=== PATIENT | female | born 1975 | race Caucasian/White ===

== ENCOUNTER 2022-12-12 07:01 | Inpatient (IN) | payer OTHER, SELFPAY ==
[2022-12-12 07:13] VITALS: BP 170/88; PULSE 67; RESP 20; TEMP 36.5; O2SAT 100; BMI 24.7
--- NOTE | 2022-12-12 08:08 | ED.PSYCH ---
HPI - Psych General Chief Complaint: Psychiatric Symptoms Stated Complaint: Crisis Time Seen by Provider: 12/12/22 08:00 Source: patient and RN notes reviewed Mode of arrival: ambulatory History of Present Illness HPI Narrative: 47-year-old female with past medical history of GERD, hypothyroid, anxiety, polysubstance abuse on methadone, presenting to the ED complaining of increased depression and anxiety over the past month, worsening over the past 2 days. Reports recently prescribed new medications by PCP which are not eating symptoms. Reports no desire to get out of bed or shower/perform ADLs. Reports recent cocaine use. Denies other illicit substances or EtOH. Denies SI, HI, hallucinations. Denies abdominal pain, CP/SOB MD complaint: feels depressed, anxiety and substance abuse Onset (ago): day(s) Related Data Home Medications Medication Instructions Recorded Confirmed ibuprofen 200 mg tablet 400 mg PO Q8H PRN Pain 12/12/22 12/12/22 lorazepam 0.5 mg tablet 0.5 mg PO DAILY PRN anxiety 12/12/22 12/12/22 methadone 10 mg/mL oral concentrate 128 mg PO DAILY 12/12/22 sumatriptan succinate 50 mg tablet 50 mg PO DAILY PRN migraine 12/12/22 12/12/22 (Imitrex) headache Previous Rx's Medication Instructions Recorded zolpidem 10 mg tablet 10 mg PO BEDTIME PRN insomnia 30 11/18/22 days #14 tabs clonazepam 1 mg tablet 1 mg PO BEDTIME PRN anxiety #14 11/22/22 tabs fluoxetine 10 mg tablet 10 mg PO DAILY #30 tabs 12/08/22 Allergies Allergy/AdvReac Type Severity Reaction Status Date / Time diphenhydramine Allergy Severe RASH Verified 11/08/22 14:02 [From BENADRYL] trazodone [TRAZODONE] Allergy Severe DYSTONIC Verified 11/08/22 14:02 risperidone [Risperdal] Allergy Unknown anaphylaxis Verified 11/08/22 14:02 antipsychotic AdvReac Intermediate dystonia Uncoded 11/08/22 14:43 cold medicine AdvReac Intermediate dystonia Uncoded 11/08/22 14:43 Review of Systems Review of Systems: Constitutional: No Fever, No Chills, No Fatigue, No Malaise ENT/Mouth: No Ear Pain, No sore throat, No Rhinorrhea, No Swallowing Difficulty Eyes: No Eye Pain, No Swelling, No Foreign Body, No Discharge, No Vision Changes Cardiovascular: No Chest Pain, No SOB Respiratory: No Cough, No Sputum, No Dyspnea Gastrointestinal: No Nausea, No Vomiting, No Diarrhea, No Constipation, No Abdominal pain Genitourinary: No Dysuria, No Urinary Frequency, No Hematuria Musculoskeletal: No joint pain, No Myalgias, No Joint Swelling Skin: No Skin Lesions, No rash Neuro: No Weakness, +Headache Psych: + Anxiety/Panic, + Depression, No SI/HI/AH/VH, No Social Issues Yes all other systems are reviewed and are negative Constitutional: Constitutional: Reports as per [facility] Past Medical History Attestation statement: The following information was validated with the patient. Medical History GERD (gastroesophageal reflux disease) Hypothyroid Insomnia Migraine Panic attacks Peptic ulcer disease Polysubstance abuse Surgical History History of section Family History Family History Father COPD (chronic obstructive pulmonary disease) Lung cancer Mother No problems noted. Maternal Grandmother Esophageal cancer Maternal Grandfather Pancreatic cancer Paternal Grandmother Esophageal cancer Stomach cancer Maternal Aunt Breast cancer Social History Social History Housing: House Alcohol intake: never Patient Tobacco Use Status: Never used Tobacco Tobacco use type: Cigarette Smoked in Last 30 Days: No e-Cigarette/Vaping Use: Never Used Second Hand Smoke Exposure: No Use of substances other than those prescribed or required for medical reasons: Yes Substance Use Type: Crack/Cocaine Substance Use Frequency: Occasionally Substance Use Frequency Other:: coke 4 days ago Last Used Substance: Days (ago) Any prior treatment program specific to substance use: No Advance Directives: No Advance Directives Information Provided: No Current occupational status: employed Cognitive needs: No Hearing needs: No Vision needs: No Physical Exam Vital Signs: Vital Signs: Last Vital Signs Temp 97.9 F 12/12/22 13:44 Pulse 54 12/12/22 13:44 Resp 16 12/12/22 13:44 BP 151/80 H 12/12/22 13:44 Pulse Ox 100 12/12/22 13:44 O2 Del Method Room Air 12/12/22 13:44 BMI result Body Mass Index 24.7 Const: General: cooperative, healthy appearing, no acute distress and anxious Orientation/consciousness: patient oriented x3 Limitations: no limitations HEENT: Head: Yes normal to inspection and Yes atraumatic Ears: hearing grossly normal bilaterally General nose exam: Normal external nose present Face and sinus: Yes normal facial exam Throat: Yes posterior oropharynx normal Eyes: General: appearance normal, both eyes and all related structures Pupils: Equal, round and reactive pupils present EOM: EOMs intact bilaterally Neck: Neck: Yes normal visual inspection and Yes no meningeal signs Resp: Effort & Inspection: normal respiratory effort and no respiratory distress Auscultation: clear to auscultation bilaterally Cardio: Rate: regular rate Heart sounds: S1 normal heart sound present and S2 normal heart sound present GI: Inspection: Yes normal to inspection Palpation (GI): Soft to palpation and nontender Skin: Rashes: no rashes Wounds: no wounds Neuro: General: patient oriented x3, tone normal and no meningeal signs Cranial nerves: Yes Equal, round and reactive pupils present Gait exam (Neuro): Normal gait present Extrem: General: Yes normal to inspection Psych: Thought content: suicidality, no homicidality and Depressive thoughts present Course Course Course Narrative: -1300--no leukocytosis. Drop in patient's H&H 8.8/30.0 >> patient reports history of anemia, denies dark/black or bloody stools. Will obtain occult stool -labs otherwise reassuring. Tox screen positive for cocaine -1500--occult stool negative. Patient medically cleared for CARE team evaluation. Physician observation initiated -1800 ED care transferred to [facility]ITAL[facility] Yun pending CARE team eval Medications Administered Discontinued Medications Generic Name Dose Route Start Last Admin Trade Name Freq PRN Reason Stop Dose Admin Ibuprofen 400 mg 12/12/22 08:25 12/12/22 08:45 Ibuprofen 400 Mg Tablet PO 12/12/22 08:26 400 mg ONCE ONE Administration Lorazepam 1 mg 12/12/22 08:25 12/12/22 08:45 Lorazepam 1 Mg Tablet PO 12/12/22 08:26 1 mg ONCE ONE Administration Medical Decision Making Medical Decision Making MDM Narrative: 47-year-old female with past medical history of GERD, hypothyroid, anxiety, polysubstance abuse on methadone, presenting to the ED complaining of increased depression and anxiety over the past month, worsening over the past 2 days. On exam vital signs stable, NAD, appears anxious/sad and depressed, denies SI/HI. Concern for increasing depression. Low suspicion for organic causes Plan: Labs, UA, drug screen, CARE team consult Please refer to course for remaining clinical decision making, interpretation of labs/imaging results, and discussions with consultants and/or family members. Differential Diagnosis Differential Diagnoses: The differential diagnosis associated with the presentation includes As above Admission/Observation Consideration of admission/observation: Escalation of care including admission/observation considered Lab Data MDM Lab Attestation statement: I reviewed the patient's lab results. 12/12/22 08:34 12/12/22 08:34 Labs: Lab Results 12/12/22 12/12/22 12/12/22 Range/Units 08:34 08:34 08:34 WBC 5.9 (4.8-10.8) X10*3/uL RBC 3.98 L (4.20-5.50) X10*6/uL Hgb 8.8 L (12.0-16.0) g/dl Hct 30.0 L (37.0-47.0) % MCV 75.4 L (80.0-98.0) fL MCH 22.1 L (27.0-33.0) pg MCHC 29.3 L (31.0-35.0) g/dl RDW 17.5 H (11.0-16.0) % Plt Count 397 (160-400) X10*3/uL MPV 10.3 (9.4-12.3) fL Immature Gran % (Auto) 1.2 H (0.0-0.4) % Neut % (Auto) 61.0 (45-73) % Lymph % (Auto) 24.7 (20-40) % Sullivan % (Auto) 7.3 (2-11) % Eos % (Auto) 4.8 H (0-4) % Baso % (Auto) 1.0 (0-2) % Lymph # (Auto) 1.5 (1.2-4.9) X10*3/uL Sullivan # (Auto) 0.4 (0.1-1.2) X10*3/uL Eos # (Auto) 0.3 (0.0-0.4) X10*3/uL Baso # (Auto) 0.1 (0.0-0.2) X10*3/uL Abs Immat Gran (auto) 0.07 H (0.00-0.03) X10*3/uL Absolute Neuts (auto) 3.6 (2.0-8.3) x10*3/uL Absolute Nucleated RBC 0.000 (0.0-0.012) X10*3/uL Nucleated RBC % (auto) 0.0 (0.0-0.2) /100WBC Sodium 141 (135-145) mmol/L Potassium 4.5 (3.3-5.1) mmol/L Chloride 108 (96-108) mmol/L Carbon Dioxide 26 (22-29) mmol/L Anion Gap 12 (12-20) BUN 16 (9-16) mg/dL Creatinine 0.70 (0.5-1.4) mg/dL Estim Creat Clear Calc 80.6 Estimated GFR > 60 Random Glucose 100 (60-115) mg/dL Calcium 8.5 (8.4-10.2) mg/dL Total Bilirubin < 0.2 (0.0-1.0) mg/dL Direct Bilirubin < 0.2 (0.0-0.5) mg/dL AST 11 (5-31) U/L ALT 6 (0-31) U/L Alkaline Phosphatase 69 (39-117) U/L Total Protein 7.3 (6.5-8.0) g/dL Albumin 3.7 (3.5-5.0) g/dL Stool Occult Blood (NEGATIVE) Urine Opiates Screen Not Detected (Not Detect) Urine Fentanyl Screen Not Detected (Not Detect) Ur Barbiturates Screen Not Detected (Not Detect) Ur Phencyclidine Scrn Not Detected (Not Detect) Ur Amphetamines Screen Not Detected (Not Detect) U Benzodiazepines Scrn Not Detected (Not Detect) Urine Cocaine Screen POSITIVE H (Not Detect) U Marijuana (THC) Screen Not Detected (Not Detect) Ethyl Alcohol < 10 mg/dL COVID-19 (STEVEN) (Negative) COVID-19 Clin Com 12/12/22 12/12/22 Range/Units 08:34 13:47 WBC (4.8-10.8) X10*3/uL RBC (4.20-5.50) X10*6/uL Hgb (12.0-16.0) g/dl Hct (37.0-47.0) % MCV (80.0-98.0) fL MCH (27.0-33.0) pg MCHC (31.0-35.0) g/dl RDW (11.0-16.0) % Plt Count (160-400) X10*3/uL MPV (9.4-12.3) fL Immature Gran % (Auto) (0.0-0.4) % Neut % (Auto) (45-73) % Lymph % (Auto) (20-40) % Sullivan % (Auto) (2-11) % Eos % (Auto) (0-4) % Baso % (Auto) (0-2) % Lymph # (Auto) (1.2-4.9) X10*3/uL Sullivan # (Auto) (0.1-1.2) X10*3/uL Eos # (Auto) (0.0-0.4) X10*3/uL Baso # (Auto) (0.0-0.2) X10*3/uL Abs Immat Gran (auto) (0.00-0.03) X10*3/uL Absolute Neuts (auto) (2.0-8.3) x10*3/uL Absolute Nucleated RBC (0.0-0.012) X10*3/uL Nucleated RBC % (auto) (0.0-0.2) /100WBC Sodium (135-145) mmol/L Potassium (3.3-5.1) mmol/L Chloride (96-108) mmol/L Carbon Dioxide (22-29) mmol/L Anion Gap (12-20) BUN (9-16) mg/dL Creatinine (0.5-1.4) mg/dL Estim Creat Clear Calc Estimated GFR Random Glucose (60-115) mg/dL Calcium (8.4-10.2) mg/dL Total Bilirubin (0.0-1.0) mg/dL Direct Bilirubin (0.0-0.5) mg/dL AST (5-31) U/L ALT (0-31) U/L Alkaline Phosphatase (39-117) U/L Total Protein (6.5-8.0) g/dL Albumin (3.5-5.0) g/dL Stool Occult Blood NEGATIVE (NEGATIVE) Urine Opiates Screen (Not Detect) Urine Fentanyl Screen (Not Detect) Ur Barbiturates Screen (Not Detect) Ur Phencyclidine Scrn (Not Detect) Ur Amphetamines Screen (Not Detect) U Benzodiazepines Scrn (Not Detect) Urine Cocaine Screen (Not Detect) U Marijuana (THC) Screen (Not Detect) Ethyl Alcohol mg/dL COVID-19 (STEVEN) Negative (Negative) COVID-19 Clin Com See Note Radiology Impression Discussion of test interpretation with radiology: I have reviewed the radiologist's reading. External Record Review External record reviewed: Inpatient record, Office record, Outpatient record, Prior outpatient labs, Prior outpatient radiology, Primary care record and Outside ED record Discharge Plan Discharge Clinical Impression: Depressed, Acute anxiety Prescriptions: No Action zolpidem 10 mg tablet 10 mg PO BEDTIME PRN (Reason: insomnia) 30 Days Qty: 14 0RF clonazepam 1 mg tablet 1 mg PO BEDTIME PRN (Reason: anxiety) Qty: 14 1RF Rx Instructions: administer 30 minutes before bedtime fluoxetine 10 mg tablet 10 mg PO DAILY Qty: 30 3RF lorazepam 0.5 mg tablet 0.5 mg PO DAILY PRN (Reason: anxiety) ibuprofen 200 mg Tablet 400 mg PO Q8H PRN (Reason: Pain) methadone 10 mg/mL Concentrate 128 mg PO DAILY sumatriptan succinate [Imitrex] 50 mg tablet 50 mg PO DAILY PRN (Reason: migraine headache) Interventions: Edgar-Suicide Risk Severity Scale Last Done: 12/12/22 10:24
[2022-12-12 08:39] LABS: MANUAL DIFF FLAG NO
[2022-12-12 08:41] LABS: Basophils Absolute Auto 0.1 X10*3/uL (0.0-0.2); Eosinophils Absolute Auto 0.3 X10*3/uL (0.0-0.4); Eosinophils Percent Auto 4.8 % (0-4); Hemoglobin 8.8 g/dl (12.0-16.0); Imm Gran Abs Auto 0.07 X10*3/uL (0.00-0.03); Imm Gran Pct Auto 1.2 % (0.0-0.4); Lymphocytes Absolute Auto 1.5 X10*3/uL (1.2-4.9); Lymphocytes Percent Auto 24.7 % (20-40); Mean Corpuscular HGB Conc 29.3 g/dl (31.0-35.0); Mean Corpuscular Hemoglobin 22.1 pg (27.0-33.0); Mean Corpuscular Volume 75.4 fL (80.0-98.0); Mean Platelet Volume 10.3 fL (9.4-12.3); Monocytes Absolute Auto 0.4 X10*3/uL (0.1-1.2); Monocytes Percent Auto 7.3 % (2-11); Neutrophils Absolute Auto 3.6 x10*3/uL (2.0-8.3); Platelet Count 397 X10*3/uL (160-400); Red Blood Count 3.98 X10*6/uL (4.20-5.50); Red Cell Distribution Width 17.5 % (11.0-16.0); White Blood Count 5.9 X10*3/uL (4.8-10.8)
[2022-12-12] MEDS: Ibuprofen 400 MG TABLET PO ×2 (08:45→16:25)
[2022-12-12] MEDS: LORazepam 1 MG TABLET PO ×2 (08:45→16:25)
[2022-12-12 08:50] LABS: Amphetamine Screen Urine Not Detected (Not Detect); Barbiturates, Urine Not Detected (Not Detect); Benzodiazepines Screen Urine Not Detected (Not Detect); Cannabinoid Screen Urine Not Detected (Not Detect); Cocaine Screen Urine POSITIVE (Not Detect); Fentanyl, urine Not Detected (Not Detect); Opiate Screen Urine Not Detected (Not Detect); Phencyclidine Screen Urine Not Detected (Not Detect)
[2022-12-12 08:54] LABS: COVID-19 Test Negative (Negative); IDNOW Serial# BCCEAD1C
[2022-12-12 09:18] LABS: Alanine Aminotransferase 6 U/L (0-31); Albumin Level 3.7 g/dL (3.5-5.0); Alkaline Phosphatase 69 U/L (39-117); Anion Gap 12 (12-20); Aspartate Amino Transferase 11 U/L (5-31); Bilirubin Direct < 0.2 mg/dL (0.0-0.5); Bilirubin Total < 0.2 mg/dL (0.0-1.0); Blood Urea Nitrogen 16 mg/dL (9-16); Calcium 8.5 mg/dL (8.4-10.2); Carbon Dioxide 26 mmol/L (22-29); Chloride 108 mmol/L (96-108); Creatinine Clr Calc Pharmacy 80.6; Estimated Glomerular Filt Rate > 60; Ethanol < 10 mg/dL; Glucose Random 100 mg/dL (60-115); Potassium 4.5 mmol/L (3.3-5.1); Sodium 141 mmol/L (135-145); Total Protein 7.3 g/dL (6.5-8.0)
--- NOTE | 2022-12-12 09:34 | PHA.MEDREC ---
Pharmacy Consult ? Medication Reconciliation Pharmacy has completed the medication reconciliation. Spoke to patient to confirm meds. Patient had Rx bottle for methadone 128mg daily. Spoke to [facility] ED and let nurse know to follow up for methadone verification tomorrow.
--- NOTE | 2022-12-12 13:11 | PC.NURSE ---
pt eating lunch, nad, skin warm pale and dry, reports diagnosis of anemia, denies rectal bleeding or dark stools, informed of need for stool sample or rectal exam, does not have to have a bm now but not opposed to either
[2022-12-12 13:44] VITALS: BP 151/80; PULSE 54; RESP 16; TEMP 36.6; O2SAT 100
--- NOTE | 2022-12-12 14:35 | PC.NURSE ---
pt to ed 3 briefly for rectal exam and now back, resting w eyes closed in the back room
[2022-12-12 14:42] LABS: OBS Int Ctl Valid YES; OBS1 NEGATIVE (NEGATIVE)
--- NOTE | 2022-12-12 15:46 | PC.NURSE ---
report received from AMBER Dixon Patient resting on bed, reporting decreased pain, no other complaints at this time
--- NOTE | 2022-12-12 16:34 | PC.NURSE ---
patient approached this RN requesting medications for anxiety and pain. MD aware, ativan and ibuprofen administered per MAR
--- NOTE | 2022-12-12 19:04 | PC.NURSE ---
pt eating dinner at this time, no apparent distress, respirations even and unlabored, skin pwd, reports no other complaints
[2022-12-12 21:54] VITALS: BP 129/85; PULSE 67; RESP 18; TEMP 36.3; O2SAT 96
[2022-12-12] MEDS: Zolpidem Tartrate 5 MG TABLET 10 MG PO (22:01)
--- NOTE | 2022-12-12 23:04 | PC.NURSE ---
pt sleeping at this time, respirations even and unlabored, skin pwd, no apparent distress
--- NOTE | 2022-12-13 01:05 | PC.NURSE ---
pt sleeping at this time, resprirations even and unlabored, skin pwd, no apparent distress at this time. Continue plan of care for CARE team assessment in the AM
[2022-12-13 06:15] VITALS: BP 109/74; PULSE 69; TEMP 36.3; O2SAT 100
[2022-12-13] MEDS: LORazepam 1 MG TABLET PO ×2 (09:11→20:07)
--- NOTE | 2022-12-13 10:12 | HE.PHANOTE ---
Re methadone verification: Last dose given 12/12/22 128 mg (take home dose from [facility]) Confirmed by Rosa RN who spoke to [facility] at facility
--- NOTE | 2022-12-13 10:26 | ECG_ITS ---
Test Reason : cocaine use Blood Pressure : / mmHG Vent. Rate : 055 BPM Atrial Rate : 055 BPM P-R Int : 110 ms QRS Dur : 074 ms QT Int : 450 ms P-R-T Axes : 030 -11 -11 degrees QTc Int : 430 ms Sinus bradycardia with short ID with Baseline wander Nonspecific ST and T wave abnormality Abnormal ECG When compared with ECG of 22-SEP-2004 21:20, T wave inversion now evident in Inferior leads Nonspecific T wave abnormality now evident in Anterolateral leads Referred By: Bhupinder Napoles Electronically Signed By:SHAWN ESCAMILLA MD
[2022-12-13] MEDS: methADONE HCl 20 MG/2 ML ORAL.CONC 128 MG PO (11:33)
[2022-12-13] MEDS: Ibuprofen 600 MG TABLET PO (18:09)
[2022-12-13 21:45] VITALS: BP 154/89; PULSE 67; RESP 14; TEMP 36.8; O2SAT 99
[2022-12-13] MEDS: Zolpidem Tartrate 5 MG TABLET 10 MG PO (22:17)
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
[2022-12-14 06:00] VITALS: BP 156/94; PULSE 80; RESP 16; TEMP 37.1; O2SAT 100
[2022-12-14] MEDS: FLUoxetine HCl 10 MG CAPSULE PO ×2 (08:16→16:11)
[2022-12-14] MEDS: methADONE HCl 20 MG/2 ML ORAL.CONC 128 MG PO (08:16)
[2022-12-14 09:04] LABS: Basophils Absolute Auto 0.1 X10*3/uL (0.0-0.2); Basophils Percent Auto 1.1 % (0-2); Eosinophils Absolute Auto 0.2 X10*3/uL (0.0-0.4); Eosinophils Percent Auto 2.6 % (0-4); Hematocrit 32.9 % (37.0-47.0); Hemoglobin 9.5 g/dl (12.0-16.0); Imm Gran Abs Auto 0.08 X10*3/uL (0.00-0.03); Imm Gran Pct Auto 1.1 % (0.0-0.4); Lymphocytes Absolute Auto 1.7 X10*3/uL (1.2-4.9); MANUAL DIFF FLAG NO; Mean Corpuscular HGB Conc 28.9 g/dl (31.0-35.0); Mean Corpuscular Hemoglobin 21.6 pg (27.0-33.0); Mean Corpuscular Volume 74.9 fL (80.0-98.0); Mean Platelet Volume 10.2 fL (9.4-12.3); Monocytes Absolute Auto 0.6 X10*3/uL (0.1-1.2); Monocytes Percent Auto 7.5 % (2-11); Neutrophils Absolute Auto 4.7 x10*3/uL (2.0-8.3); Neutrophils Percent Auto 64.7 % (45-73); Platelet Count 435 X10*3/uL (160-400); Red Blood Count 4.39 X10*6/uL (4.20-5.50); Red Cell Distribution Width 17.5 % (11.0-16.0); White Blood Count 7.3 X10*3/uL (4.8-10.8)
[2022-12-14] MEDS: Acetaminophen 325 MG TABLET 650 MG PO (09:50)
[2022-12-14 09:56] LABS: Alanine Aminotransferase 8 U/L (0-31); Alkaline Phosphatase 70 U/L (39-117); Anion Gap 11 (12-20); Aspartate Amino Transferase 15 U/L (5-31); Bilirubin Total 0.2 mg/dL (0.0-1.0); Blood Urea Nitrogen 19 mg/dL (9-16); Calcium 9.2 mg/dL (8.4-10.2); Carbon Dioxide 27 mmol/L (22-29); Chloride 106 mmol/L (96-108); Cholesterol 195 mg/dL; Creatinine Clr Calc Pharmacy 69.7; Estimated Glomerular Filt Rate > 60; Glucose Fasting 106 mg/dL (60-99); HDL Cholesterol 44 mg/dL; LDL Cholesterol Calculated 117 mg/dl; Potassium 4.9 mmol/L (3.3-5.1); Sodium 139 mmol/L (135-145); Total Protein 7.9 g/dL (6.5-8.0); Triglycerides 171 mg/dL
[2022-12-14 10:14] LABS: Folate 12.1 ng/mL (> or = 4.0); Vitamin B12 326 pg/mL (200-900)
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
[2022-12-14] MEDS: Ibuprofen 800 MG TABLET PO (10:23)
[2022-12-14 16:15] VITALS: BP 126/79; PULSE 65; TEMP 36.6
[2022-12-14] MEDS: cloNIDine HCL 0.1 MG TABLET 0.05 MG PO (16:16)
[2022-12-14] MEDS: clonazePAM 0.5 MG TABLET PO (16:17)
[2022-12-14 18:03] LABS: Iron 24 mcg/dL (30-160); Percent Iron Saturation 7 % (15-50); Total Iron Binding Capacity 345 mcg/dL (228-428); Unsaturated Iron Binding 321 ug/dL
[2022-12-14] MEDS: Zolpidem Tartrate 5 MG TABLET 10 MG PO (20:09)
[2022-12-15] MEDS: FLUoxetine HCl 20 MG CAPSULE PO (08:39)
[2022-12-15] MEDS: methADONE HCl 20 MG/2 ML ORAL.CONC 125 MG PO (08:40)
--- NOTE | 2022-12-15 08:43 | HO.PSYCHPN ---
Subjective Subjective Date of Service: 12/15/22 Reason For Visit: depression, si Interim History: Met with patient; discussed with team; engaged in CBT Therapy session Patient will out about, social in the milieu, attending groups. patient reports she is doing a little better; no SI; discussed treatment and patient agrees that much of her recovery will be based on outpatient therapy; since medications have been increased, she wonders if she might step down to a partial day program soon and continue treatment in that setting. Patient discussed social anxiety issues, worried that people are thing in about her when she knows they are not; Engaged in CBT exercise and patient able to identify problematic areas with automatic thoughts and how they trigger feelings. Patient agrees to continue current medication regimen. Also agrees to start iron supplementation for microcytic anemia. Patient Mental Status Exam Mental Status Exam Narrative: Pt is alert and oriented; behavior is cooperative, friendly and calm; patient is not in distress; dressed in casual attire, well groomed; mood is described as little better and affect congruent; eye contact appropriate; Speech is normal rate, volume and prosody and not pressured; no psychomotor retardation; thought process is organized and goal directed; Thought content is on why she is feeling depressed; tx; otherwise pertinent to relevant topics and without any delusional content, paranoid ideations or grandiosity; currently denies any SI; no HI. There is no evidence of perceptual disturbance. Patients insight and judgment improved and fair. Diagnostics Vital Signs (24Hr): Vital Signs - 24 hr 12/14/22 16:15 Temperature 97.9 F Pulse Rate 65 Blood Pressure 126/79 BMI result Body Mass Index 24.7 Labs 12/14/22 08:40 12/14/22 08:40 Labs: Laboratory Results - last 48 hr 12/14/22 12/14/22 12/14/22 08:40 08:40 17:39 WBC 7.3 RBC 4.39 Hgb 9.5 L Hct 32.9 L MCV 74.9 L MCH 21.6 L MCHC 28.9 L RDW 17.5 H Plt Count 435 H MPV 10.2 Immature Gran % (Auto) 1.1 H Neut % (Auto) 64.7 Lymph % (Auto) 23.0 [place] % (Auto) 7.5 Eos % (Auto) 2.6 Baso % (Auto) 1.1 Lymph # (Auto) 1.7 [place] # (Auto) 0.6 Eos # (Auto) 0.2 Baso # (Auto) 0.1 Abs Immat Gran (auto) 0.08 H Absolute Neuts (auto) 4.7 Absolute Nucleated RBC 0.000 Nucleated RBC % (auto) 0.0 Sodium 139 Potassium 4.9 Chloride 106 Carbon Dioxide 27 Anion Gap 11 L BUN 19 H Creatinine 0.81 Estim Creat Clear Calc 69.7 Estimated GFR > 60 Fasting Glucose 106 H Calcium 9.2 D Iron 24 L TIBC 345 % Saturation 7 L Unsat Iron Binding 321 Total Bilirubin 0.2 AST 15 ALT 8 Alkaline Phosphatase 70 Total Protein 7.9 Albumin 4.0 Triglycerides 171 Cholesterol 195 LDL Cholesterol, Calc 117 HDL Cholesterol 44 Vitamin B12 326 Folate 12.1 TSH 1.10 Medications Medications Current Medications Acetaminophen (Acetaminophen 325 Mg Tablet) 650 mg PO Q6H PRN PRN Reason: Headache/Pain Mild Scale (1-3) Last Admin: 12/14/22 09:50 Dose: 650 mg Al Hydroxide/Mg Hydroxide (Magnesium Hydrox/Alum Hydrox 30 Ml Oral.Susp) 30 ml PO Q6H PRN PRN Reason: Heartburn/Nausea Clonazepam (Clonazepam 0.5 Mg Tablet) 0.5 mg PO BID PRN PRN Reason: anxiety Last Admin: 12/14/22 16:17 Dose: 0.5 mg Clonidine HCl (Clonidine Hcl 0.1 Mg Tablet) 0.05 mg PO TID PRN; Protocol PRN Reason: anxiety Last Admin: 12/14/22 16:16 Dose: 0.05 mg Fluoxetine HCl (Fluoxetine Hcl 20 Mg Capsule) 20 mg PO DAILY [facility] Last Admin: 12/15/22 08:39 Dose: 20 mg Gabapentin (Gabapentin 100 Mg Capsule) 100 mg PO TID PRN PRN Reason: anxiety Ibuprofen (Ibuprofen 800 Mg Tablet) 800 mg PO Q8H PRN PRN Reason: Pain, Mild (Pain Scale 1-3) Last Admin: 12/14/22 10:23 Dose: 800 mg Magnesium Hydroxide (Milk Of Magnesia 30 Ml Oral.Susp) 30 ml PO DAILY PRN PRN Reason: Constipation Methadone HCl (Methadone Hcl 20 Mg/2 Ml Oral.Conc) 125 mg PO DAILY [facility] Last Admin: 12/15/22 08:40 Dose: 125 mg Sumatriptan Succinate (Sumatriptan Succinate 50 Mg Tablet) 50 mg PO DAILY PRN PRN Reason: migraine headache Zolpidem Tartrate (Zolpidem Tartrate 5 Mg Tablet) 10 mg PO BEDTIME PRN PRN Reason: insomnia Last Admin: 12/14/22 20:09 Dose: 10 mg Allergies Allergies Allergy/AdvReac Type Severity Reaction Status Date / Time diphenhydramine Allergy Severe RASH Verified 11/08/22 14:02 [From BENADRYL] trazodone [TRAZODONE] Allergy Severe DYSTONIC Verified 11/08/22 14:02 risperidone [Risperdal] Allergy Unknown anaphylaxis Verified 11/08/22 14:02 antipsychotic AdvReac Intermediate dystonia Uncoded 11/08/22 14:43 cold medicine AdvReac Intermediate dystonia Uncoded 11/08/22 14:43 Assessment & Plan Assessment & Plan (1) MDD (major depressive disorder), recurrent episode, severe: Status: Acute Code(s): F33.2 - Major depressive disorder, recurrent severe without psychotic features (2) PTSD (post-traumatic stress disorder): Status: Acute Code(s): F43.10 - Post-traumatic stress disorder, unspecified (3) Anemia: Status: Acute Code(s): D64.9 - Anemia, unspecified Plan Patient is a 47 year old female with a history of depression, anxiety and PTSD, GERD, hx Hypothroid. Patient self presented to [facility] ER with thoughts of SI and feeling unsafe -patient has history of bouts of severe depression; denies any history of manic episodes/behaviors -patient was recently started on Prozac 10 mg a few weeks ago by outpatient provider; agrees to increasing this medication; has had past medication trials with either no effect or adverse reaction -will admit for safety, stabilization and medication management Hospital course: 12/15 patient reports mood has improved a little; with medication adjustment feels like she can probably continue treatment as an outpatient soon. Discussed anemia and patient agrees to iron supplementation Plan: CV Q 15 minute checks Increase Prozac to 20 mg daily Start iron tablet 325 mg daily plus vitamin-C 500 mg daily (patient wants once a day dosing) Clonidine p.r.n. for anxiety Continue clonazepam however will break it up to 0.5 mg b.i.d. p.r.n. (patient gets clonazepam 1 mg daily as an outpatient) Continue Ambien 10 mg q.h.s. (patient prescribed this as outpatient) Patient educated on: diagnosis, medication risk/benefits, therapeutic strategies and medical condition Informed Consent: understands Reason for contiued inpatient stay Substantial Risk for: stable for discharge Time Spent With Patient Time: Total time managing care of this patient today ____ minutes.
[2022-12-15] MEDS: clonazePAM 0.5 MG TABLET PO ×2 (08:55→15:18)
[2022-12-15 09:16] VITALS: BP 164/96; PULSE 79; RESP 18; TEMP 36.3; O2SAT 98
[2022-12-15] MEDS: Ibuprofen 800 MG TABLET PO ×2 (11:44→19:39)
[2022-12-15 12:46] LABS: UPreg QC Valid YES; Urine Pregnancy NEGATIVE (NEGATIVE)
[2022-12-15] MEDS: Ferrous Sulfate 324 MG TABLET.DR PO (16:22)
[2022-12-15] MEDS: Acetaminophen 325 MG TABLET 650 MG PO (16:47)
[2022-12-15 17:47] VITALS: BP 129/78; PULSE 69; TEMP 36.4
[2022-12-15] MEDS: Zolpidem Tartrate 5 MG TABLET 10 MG PO (19:41)
[2022-12-16 07:00] VITALS: BMI 25.4
[2022-12-16] MEDS: FLUoxetine HCl 20 MG CAPSULE PO (08:11)
[2022-12-16] MEDS: Ascorbic Acid 500 MG TABLET PO (08:11)
[2022-12-16] MEDS: Ferrous Sulfate 324 MG TABLET.DR PO (08:11)
[2022-12-16] MEDS: methADONE HCl 20 MG/2 ML ORAL.CONC 125 MG PO (08:24)
[2022-12-16] MEDS: clonazePAM 0.5 MG TABLET PO ×2 (08:24→15:16)
[2022-12-16 08:30] VITALS: BP 125/84; PULSE 73; RESP 18; TEMP 36.6; O2SAT 100
--- NOTE | 2022-12-16 09:54 | HO.PSYCHPN ---
Subjective Subjective Date of Service: 12/16/22 Reason For Visit: depression, si Subjective Notes: Conditional Voluntary Interim History: Pt reports feeling anxious and depressed, no clear triggers, reports came out of the blue. She reports feeling better but states she may benefit from staying through the weekend as she does not feel ready to leave tomorrow. Pt reports sleeping and eating well, which is significant improvement from when she came here to the hospital. She denies side effects with prozac. She reports feeling less anxious but states that loud noises here on the unit do trigger her due to past hx of trauma. She reports less SI, no plan or intent to hurt herself. Medication Compliance: Yes Side effects from medications: No Mental Status Exam Mental Status Exam Narrative: Appearance: casually groomed, good hygiene, in NAD Behavior: cooperative Speech: clear, normal rate/rhythm/volume, spontaneous TP: linear TC: no signs of psychosis, future oriented, spontaneous Mood: better but still depressed Affect: congruent, blunted SI: passive, less intensity, no plan or intent HI: none VH/AH: none Delusions: none Insight/judgment: fair x 2. memory/cog: alert, oriented x 3. grossly intact to conversational testing. Diagnostics Vital Signs (24Hr): Vital Signs - 24 hr 12/15/22 17:47 12/16/22 08:30 Temperature 97.5 F 97.8 F Pulse Rate 69 73 Respiratory Rate 18 Blood Pressure 129/78 125/84 Pulse Oximetry 100 Oxygen Delivery Method Room Air BMI result Body Mass Index 25.4 Labs 12/14/22 08:40 12/14/22 08:40 Labs: Laboratory Results - last 48 hr 12/14/22 12/14/22 12/15/22 08:40 17:39 12:28 Sodium 139 Potassium 4.9 Chloride 106 Carbon Dioxide 27 Anion Gap 11 L BUN 19 H Creatinine 0.81 Estim Creat Clear Calc 69.7 Estimated GFR > 60 Fasting Glucose 106 H Calcium 9.2 D Iron 24 L TIBC 345 % Saturation 7 L Unsat Iron Binding 321 Total Bilirubin 0.2 AST 15 ALT 8 Alkaline Phosphatase 70 Total Protein 7.9 Albumin 4.0 Triglycerides 171 Cholesterol 195 LDL Cholesterol, Calc 117 HDL Cholesterol 44 Vitamin B12 326 Folate 12.1 TSH 1.10 Urine Test NEGATIVE Medications Medications Current Medications Acetaminophen (Acetaminophen 325 Mg Tablet) 650 mg PO Q6H PRN PRN Reason: Headache/Pain Mild Scale (1-3) Last Admin: 12/15/22 16:47 Dose: 650 mg Al Hydroxide/Mg Hydroxide (Magnesium Hydrox/Alum Hydrox 30 Ml Oral.Susp) 30 ml PO Q6H PRN PRN Reason: Heartburn/Nausea Ascorbic Acid (Ascorbic Acid 500 Mg Tablet) 500 mg PO DAILY [facility] Last Admin: 12/16/22 08:11 Dose: 500 mg Clonazepam (Clonazepam 0.5 Mg Tablet) 0.5 mg PO BID PRN PRN Reason: anxiety Last Admin: 12/16/22 08:24 Dose: 0.5 mg Clonidine HCl (Clonidine Hcl 0.1 Mg Tablet) 0.05 mg PO TID PRN; Protocol PRN Reason: anxiety Last Admin: 12/14/22 16:16 Dose: 0.05 mg Ferrous Sulfate (Ferrous Sulfate 324 Mg Tablet.Dr) 324 mg PO DAILY [facility] Last Admin: 12/16/22 08:11 Dose: 324 mg Fluoxetine HCl (Fluoxetine Hcl 20 Mg Capsule) 20 mg PO DAILY [facility] Last Admin: 12/16/22 08:11 Dose: 20 mg Gabapentin (Gabapentin 100 Mg Capsule) 100 mg PO TID PRN PRN Reason: anxiety Ibuprofen (Ibuprofen 800 Mg Tablet) 800 mg PO Q8H PRN PRN Reason: Pain, Mild (Pain Scale 1-3) Last Admin: 12/15/22 19:39 Dose: 800 mg Magnesium Hydroxide (Milk Of Magnesia 30 Ml Oral.Susp) 30 ml PO DAILY PRN PRN Reason: Constipation Methadone HCl (Methadone Hcl 20 Mg/2 Ml Oral.Conc) 125 mg PO DAILY [facility] Last Admin: 12/16/22 08:24 Dose: 125 mg Sumatriptan Succinate (Sumatriptan Succinate 50 Mg Tablet) 50 mg PO DAILY PRN PRN Reason: migraine headache Zolpidem Tartrate (Zolpidem Tartrate 5 Mg Tablet) 10 mg PO BEDTIME PRN PRN Reason: insomnia Last Admin: 12/15/22 19:41 Dose: 10 mg Allergies Allergies Allergy/AdvReac Type Severity Reaction Status Date / Time diphenhydramine Allergy Severe RASH Verified 11/08/22 14:02 [From BENADRYL] trazodone [TRAZODONE] Allergy Severe DYSTONIC Verified 11/08/22 14:02 risperidone [Risperdal] Allergy Unknown anaphylaxis Verified 11/08/22 14:02 antipsychotic AdvReac Intermediate dystonia Uncoded 11/08/22 14:43 cold medicine AdvReac Intermediate dystonia Uncoded 11/08/22 14:43 Assessment & Plan Assessment & Plan (1) MDD (major depressive disorder), recurrent episode, severe: Status: Acute Code(s): F33.2 - Major depressive disorder, recurrent severe without psychotic features (2) PTSD (post-traumatic stress disorder): Status: Acute Code(s): F43.10 - Post-traumatic stress disorder, unspecified (3) Anemia: Status: Acute Code(s): D64.9 - Anemia, unspecified Plan Patient is a 47 year old female with a history of depression, anxiety and PTSD, GERD, hx Hypothroid. Patient self presented to [facility] [place] ER with thoughts of SI and feeling unsafe -patient has history of bouts of severe depression; denies any history of manic episodes/behaviors -patient was recently started on Prozac 10 mg a few weeks ago by outpatient provider; agrees to increasing this medication; has had past medication trials with either no effect or adverse reaction -will admit for safety, stabilization and medication management Hospital course: 12/15 patient reports mood has improved a little; with medication adjustment feels like she can probably continue treatment as an outpatient soon. Discussed anemia and patient agrees to iron supplementation Plan: CV Q 15 minute checks Increase Prozac to 20 mg daily Start iron tablet 325 mg daily plus vitamin-C 500 mg daily (patient wants once a day dosing) Clonidine p.r.n. for anxiety Continue clonazepam however will break it up to 0.5 mg b.i.d. p.r.n. (patient gets clonazepam 1 mg daily as an outpatient) Continue Ambien 10 mg q.h.s. (patient prescribed this as outpatient) 12/16 continue tx. Reason for contiued inpatient stay Substantial Risk for: harm to self Time Spent With Patient Time: Total time managing care of this patient today ____ minutes.
[2022-12-16] MEDS: Acetaminophen 325 MG TABLET 650 MG PO (10:34)
--- NOTE | 2022-12-16 15:34 | PM.EVENT ---
Event Note Date of Service: 12/16/22 Event Note: Pt asking if use of benzodiazepines would be appropriate for her symptom mgt. Education provided regarding benzodiazepines-potential addiction, potential MCI with longer term use, tendency to not be helpful with trauma/dissociative/trigger sx as grounding is not provided. Pt to continue discussion with her treatment team. Time Spent With Patient Time: Total time managing care of this patient today ____ minutes.
[2022-12-16 18:00] VITALS: BP 113/69; PULSE 70; RESP 16
[2022-12-16] MEDS: Zolpidem Tartrate 5 MG TABLET 10 MG PO (19:46)
[2022-12-17 08:00] VITALS: BP 138/86; PULSE 83; RESP 18; TEMP 37.3; O2SAT 99
[2022-12-17] MEDS: Acetaminophen 325 MG TABLET 650 MG PO (08:10)
[2022-12-17] MEDS: FLUoxetine HCl 20 MG CAPSULE PO (08:11)
[2022-12-17] MEDS: clonazePAM 0.5 MG TABLET PO ×2 (08:11→15:49)
[2022-12-17] MEDS: methADONE HCl 20 MG/2 ML ORAL.CONC 125 MG PO (08:11)
[2022-12-17] MEDS: Ascorbic Acid 500 MG TABLET PO (08:11)
--- NOTE | 2022-12-17 08:14 | HO.PSYCHPN ---
Subjective Subjective Date of Service: 12/17/22 Reason For Visit: depression, si Interim History: met with patient; discussed in team Pt reports she's feeling better and no SI; patient more hopeful about getting better. Depression is less; patient shared about flashbacks and PTSD symptoms which remain; she started to talk about some of the trauma and how even though she knows it is not her fault, feels embarrassed about it. Manager Communication helped normalize these feelings and patient agreed that therapy will be a significant part of her overall recovery. -discussed CBT exercise and patient says she is trying to apply it. -Patient feels medications are adequate and would like to remain on current dose -Patient wants to go to partial Mental Status Exam Mental Status Exam Narrative: Pt is alert and oriented; behavior is cooperative, friendly and calm; patient is not in distress; dressed in casual attire, well groomed; mood is described as little better and affect congruent; eye contact appropriate; Speech is normal rate, volume and prosody and not pressured; no psychomotor retardation; thought process is organized and goal directed; Thought content is on why she is feeling depressed; tx; otherwise pertinent to relevant topics and without any delusional content, paranoid ideations or grandiosity; no SI; no HI. There is no evidence of perceptual disturbance. Patients insight and judgment improved and fair. Diagnostics Vital Signs (24Hr): Vital Signs - 24 hr 12/16/22 08:30 12/16/22 18:00 Temperature 97.8 F Pulse Rate 73 70 Respiratory Rate 18 16 Blood Pressure 125/84 113/69 Pulse Oximetry 100 Oxygen Delivery Method Room Air Room Air BMI result Body Mass Index 25.4 Labs 12/14/22 08:40 12/14/22 08:40 Labs: Laboratory Results - last 48 hr 12/15/22 12:28 Urine Test NEGATIVE Medications Medications Current Medications Acetaminophen (Acetaminophen 325 Mg Tablet) 650 mg PO Q6H PRN PRN Reason: Headache/Pain Mild Scale (1-3) Last Admin: 12/17/22 08:10 Dose: 650 mg Al Hydroxide/Mg Hydroxide (Magnesium Hydrox/Alum Hydrox 30 Ml Oral.Susp) 30 ml PO Q6H PRN PRN Reason: Heartburn/Nausea Ascorbic Acid (Ascorbic Acid 500 Mg Tablet) 500 mg PO DAILY [facility] Last Admin: 12/17/22 08:11 Dose: 500 mg Clonazepam (Clonazepam 0.5 Mg Tablet) 0.5 mg PO BID PRN PRN Reason: anxiety Last Admin: 12/17/22 08:11 Dose: 0.5 mg Clonidine HCl (Clonidine Hcl 0.1 Mg Tablet) 0.05 mg PO TID PRN; Protocol PRN Reason: anxiety Last Admin: 12/14/22 16:16 Dose: 0.05 mg Ferrous Sulfate (Ferrous Sulfate 324 Mg Tablet.Dr) 324 mg PO DAILY [facility] Last Admin: 12/17/22 08:11 Dose: Not Given Fluoxetine HCl (Fluoxetine Hcl 20 Mg Capsule) 20 mg PO DAILY [facility] Last Admin: 12/17/22 08:11 Dose: 20 mg Gabapentin (Gabapentin 100 Mg Capsule) 100 mg PO TID PRN PRN Reason: anxiety Ibuprofen (Ibuprofen 800 Mg Tablet) 800 mg PO Q8H PRN PRN Reason: Pain, Mild (Pain Scale 1-3) Last Admin: 12/15/22 19:39 Dose: 800 mg Magnesium Hydroxide (Milk Of Magnesia 30 Ml Oral.Susp) 30 ml PO DAILY PRN PRN Reason: Constipation Methadone HCl (Methadone Hcl 20 Mg/2 Ml Oral.Conc) 125 mg PO DAILY [facility] Last Admin: 12/17/22 08:11 Dose: 125 mg Sumatriptan Succinate (Sumatriptan Succinate 50 Mg Tablet) 50 mg PO DAILY PRN PRN Reason: migraine headache Zolpidem Tartrate (Zolpidem Tartrate 5 Mg Tablet) 10 mg PO BEDTIME PRN PRN Reason: insomnia Last Admin: 12/16/22 19:46 Dose: 10 mg Allergies Allergies Allergy/AdvReac Type Severity Reaction Status Date / Time diphenhydramine Allergy Severe RASH Verified 11/08/22 14:02 [From BENADRYL] trazodone [TRAZODONE] Allergy Severe DYSTONIC Verified 11/08/22 14:02 risperidone [Risperdal] Allergy Unknown anaphylaxis Verified 11/08/22 14:02 antipsychotic AdvReac Intermediate dystonia Uncoded 11/08/22 14:43 cold medicine AdvReac Intermediate dystonia Uncoded 11/08/22 14:43 Assessment & Plan Assessment & Plan (1) MDD (major depressive disorder), recurrent episode, severe: Status: Acute Code(s): F33.2 - Major depressive disorder, recurrent severe without psychotic features (2) PTSD (post-traumatic stress disorder): Status: Acute Code(s): F43.10 - Post-traumatic stress disorder, unspecified (3) Anemia: Status: Acute Code(s): D64.9 - Anemia, unspecified Plan Patient is a 47 year old female with a history of depression, anxiety and PTSD, GERD, hx Hypothroid. Patient self presented to [facility] ER with thoughts of SI and feeling unsafe -patient has history of bouts of severe depression; denies any history of manic episodes/behaviors -patient was recently started on Prozac 10 mg a few weeks ago by outpatient provider; agrees to increasing this medication; has had past medication trials with either no effect or adverse reaction -will admit for safety, stabilization and medication management Hospital course: 12/15 patient reports mood has improved a little; with medication adjustment feels like she can probably continue treatment as an outpatient soon. Discussed anemia and patient agrees to iron supplementation 12/17 patient is stabilizing; addressing trauma more; more hopeful. Patient grateful to stay over the weekend but feels ready to discharge on Tuesday to which team agrees. Plan: CV Q 15 minute checks Continue Prozac to 20 mg daily Continue iron tablet 325 mg daily plus vitamin-C 500 mg daily (patient wants once a day dosing) Clonidine p.r.n. for anxiety Continue clonazepam however will break it up to 0.5 mg b.i.d. p.r.n. (patient gets clonazepam 1 mg daily as an outpatient) Continue Ambien 10 mg q.h.s. (patient prescribed this as outpatient) 12/16 continue tx. Patient educated on: diagnosis, medication risk/benefits and therapeutic strategies Informed Consent: understands Reason for contiued inpatient stay Substantial Risk for: stable for discharge Time Spent With Patient Time: Total time managing care of this patient today ____ minutes.
[2022-12-17] MEDS: Sennosides/Docusate Sodium TABLET 1 TAB PO (09:33)
--- NOTE | 2022-12-17 12:41 | P.DS_ITS ---
DS: Providers Provider Date of Service: 12/21/22 Date of admission: 12/13/22 21:28 Date of discharge: 12/21/22 Primary care physician: Oniel Sanches MD Attending physician on admission: Joseluis Shafer Attending physician on discharge: Joseluis Shafer DS: Diagnosis Discharge Diagnosis (1) MDD (major depressive disorder), recurrent episode, severe: Status: Acute (2) PTSD (post-traumatic stress disorder): Status: Acute (3) Anemia: Status: Acute DS: Medications Discharge Medications Home Medications: Home Medications Medication Instructions Recorded Confirmed ibuprofen 200 mg tablet 400 mg PO Q8H PRN Pain 12/12/22 12/12/22 methadone 10 mg/mL oral concentrate 128 mg PO DAILY 12/12/22 12/13/22 Previous Rx's Medication Instructions Recorded ascorbic acid (vitamin C) 500 mg 500 mg PO DAILY 30 days #30 tabs 12/17/22 tablet (Vitamin C) clonazepam 0.5 mg tablet 0.5 mg PO BID PRN anxiety 30 days 12/17/22 #60 tabs clonidine HCl 0.1 mg tablet 0.05 mg PO TID PRN anxiety 30 days 12/17/22 #60 tabs ferrous sulfate 324 mg (65 mg 324 mg PO DAILY 30 days #30 tabs 12/17/22 iron) tablet,delayed release fluoxetine 20 mg capsule 20 mg PO DAILY 30 days #30 caps 12/17/22 sennosides 8.6 mg-docusate sodium 1 tab PO DAILY PRN Constipation 30 12/17/22 50 mg tablet (Senna Plus) days #30 tabs sumatriptan succinate 50 mg tablet 50 mg PO DAILY PRN migraine 12/17/22 (Imitrex) headache 30 days #4 tabs zolpidem 10 mg tablet 10 mg PO BEDTIME PRN insomnia 30 12/17/22 days #14 tabs Mental Status Exam Mental Status Exam Narrative: Pt is alert and oriented; behavior is cooperative, friendly and calm; patient is not in distress; dressed in casual attire, well groomed; mood is described as better and affect congruent; eye contact appropriate; Speech is normal rate, volume and prosody and not pressured; no psychomotor retardation; thought process is organized and goal directed; Thought content is on continuing treatment; otherwise pertinent to relevant topics and without any delusional content, paranoid ideations or grandiosity; no SI; no HI. There is no evidence of perceptual disturbance. Patients insight and judgment improved and fair. Data Data Completed and Pending Completed studies during hospitalization [Text1]: 12/12/22 12/12/22 12/12/22 08:34 08:34 08:34 WBC 5.9 RBC 3.98 L Hgb 8.8 L Hct 30.0 L MCV 75.4 L MCH 22.1 L MCHC 29.3 L RDW 17.5 H Plt Count 397 MPV 10.3 Immature Gran % (Auto) 1.2 H Neut % (Auto) 61.0 Lymph % (Auto) 24.7 [place] % (Auto) 7.3 Eos % (Auto) 4.8 H Baso % (Auto) 1.0 Lymph # (Auto) 1.5 [place] # (Auto) 0.4 Eos # (Auto) 0.3 Baso # (Auto) 0.1 Abs Immat Gran (auto) 0.07 H Absolute Neuts (auto) 3.6 Absolute Nucleated RBC 0.000 Nucleated RBC % (auto) 0.0 Sodium 141 Potassium 4.5 Chloride 108 Carbon Dioxide 26 Anion Gap 12 BUN 16 Creatinine 0.70 Estim Creat Clear Calc 80.6 Estimated GFR > 60 Random Glucose 100 Fasting Glucose Calcium 8.5 Iron TIBC % Saturation Unsat Iron Binding Total Bilirubin < 0.2 Direct Bilirubin < 0.2 AST 11 ALT 6 Alkaline Phosphatase 69 Total Protein 7.3 Albumin 3.7 Triglycerides Cholesterol LDL Cholesterol, Calc HDL Cholesterol Vitamin B12 Folate TSH Urine Test Stool Occult Blood Urine Opiates Screen Not Detected Urine Fentanyl Screen Not Detected Ur Barbiturates Screen Not Detected Ur Phencyclidine Scrn Not Detected Ur Amphetamines Screen Not Detected U Benzodiazepines Scrn Not Detected Urine Cocaine Screen POSITIVE H U Marijuana (THC) Screen Not Detected Ethyl Alcohol < 10 COVID-19 ([facility]) COVID-19 Clin Com 12/12/22 12/12/22 12/14/22 08:34 13:47 08:40 WBC 7.3 RBC 4.39 Hgb 9.5 L Hct 32.9 L MCV 74.9 L MCH 21.6 L MCHC 28.9 L RDW 17.5 H Plt Count 435 H MPV 10.2 Immature Gran % (Auto) 1.1 H Neut % (Auto) 64.7 Lymph % (Auto) 23.0 [place] % (Auto) 7.5 Eos % (Auto) 2.6 Baso % (Auto) 1.1 Lymph # (Auto) 1.7 [place] # (Auto) 0.6 Eos # (Auto) 0.2 Baso # (Auto) 0.1 Abs Immat Gran (auto) 0.08 H Absolute Neuts (auto) 4.7 Absolute Nucleated RBC 0.000 Nucleated RBC % (auto) 0.0 Sodium Potassium Chloride Carbon Dioxide Anion Gap BUN Creatinine Estim Creat Clear Calc Estimated GFR Random Glucose Fasting Glucose Calcium Iron TIBC % Saturation Unsat Iron Binding Total Bilirubin Direct Bilirubin AST ALT Alkaline Phosphatase Total Protein Albumin Triglycerides Cholesterol LDL Cholesterol, Calc HDL Cholesterol Vitamin B12 Folate TSH Urine Test Stool Occult Blood NEGATIVE Urine Opiates Screen Urine Fentanyl Screen Ur Barbiturates Screen Ur Phencyclidine Scrn Ur Amphetamines Screen U Benzodiazepines Scrn Urine Cocaine Screen U Marijuana (THC) Screen Ethyl Alcohol COVID-19 ([facility]) Negative COVID-19 Clin Com See Note 12/14/22 12/14/22 12/15/22 08:40 17:39 12:28 WBC RBC Hgb Hct MCV MCH MCHC RDW Plt Count MPV Immature Gran % (Auto) Neut % (Auto) Lymph % (Auto) [place] % (Auto) Eos % (Auto) Baso % (Auto) Lymph # (Auto) [place] # (Auto) Eos # (Auto) Baso # (Auto) Abs Immat Gran (auto) Absolute Neuts (auto) Absolute Nucleated RBC Nucleated RBC % (auto) Sodium 139 Potassium 4.9 Chloride 106 Carbon Dioxide 27 Anion Gap 11 L BUN 19 H Creatinine 0.81 Estim Creat Clear Calc 69.7 Estimated GFR > 60 Random Glucose Fasting Glucose 106 H Calcium 9.2 D Iron 24 L TIBC 345 % Saturation 7 L Unsat Iron Binding 321 Total Bilirubin 0.2 Direct Bilirubin AST 15 ALT 8 Alkaline Phosphatase 70 Total Protein 7.9 Albumin 4.0 Triglycerides 171 Cholesterol 195 LDL Cholesterol, Calc 117 HDL Cholesterol 44 Vitamin B12 326 Folate 12.1 TSH 1.10 Urine Test NEGATIVE Stool Occult Blood Urine Opiates Screen Urine Fentanyl Screen Ur Barbiturates Screen Ur Phencyclidine Scrn Ur Amphetamines Screen U Benzodiazepines Scrn Urine Cocaine Screen U Marijuana (THC) Screen Ethyl Alcohol COVID-19 ([facility]) COVID-19 Clin Com DS: Summary Hospital Course Hospital Course: Patient is a 47 year old female with a history of depression, anxiety and PTSD, GERD, hx Hypothroid. Patient self [place] [facility] [place] thoughts of SI and feeling unsafe -patient has history of bouts of severe depression; denies any history of manic episodes/behaviors -patient was recently started on Prozac 10 mg a few weeks ago by outpatient provider; agrees to increasing this medication; has had past medication trials with either no effect or adverse reaction On admission she was depressed but SI resolved. Her Prozac was increased and her mood began to improve. Patient was forthcoming and engage in treatment, open in 1 on 1 sessions and attending groups; she had insight and understood her need to further process her history of trauma in therapy which she was willing to do as an outpatient. Patient remained in good behavioral and impulse control throughout her time in the unit; she was appropriate with peers and staff. As discharge approached patient was in a good mood and depression had abated; she felt ready to continue treatment as an outpatient and was appropriate for discharge to the community. Patient returns to her stable housing situation and her supportive roommate. Patient was not in imminent risk for harm to self or others and request for discharge appropriate. Patient was started on iron supplementation for iron deficient anemia Time spent discussing smoking cessation with patient: 3 to 10 minutes Status at Discharge Functional status at discharge: independent ambulation Overall status at discharge: patient is back to baseline Time Spent with Patient Time attestation: Total time managing care of this patient today ____ minutes. Time spent: Less than 30 minutes Discharge Plan Discharge Anticipated Discharge Date/Time: 12/21/22 11:00 Patient Disposition: Home, Self-Care Discharge Diagnosis: MDD, recurrent, severe without psychotic features, in partial remission Referrals: Anders London: [facility] [Other] - 12/22/22 9:00 am (Initial Diagnostic Evaluation for Therapy Appointment in person at [facility] in [place]) Heidi Thomson: [facility] [Other] - 01/12/23 9:00 am (Initial Psychiatric Evaluation for medication management services with psychiatric provider Appointment is by tele-health. Pleas check your email for a link to the appointment ) Heidi Thomson: [facility] [Other] - 02/15/23 1:00 pm (Medication management appointment with psychiatric medication provider. Appointment is by tele-health. Please check your email for a link to the appointment. ) [facility]: Partial Hospitalization Program(PHP) [Other] - 01/04/23 8:00 am (Referral for PHP program Appointment intake scheduled for 01/04/23 at 8:00 am ) Oniel Sanches MD [Primary Care Provider] - 12/31/22 11:30 am (in office) Discharge Medications: New ferrous sulfate 324 mg (65 mg iron) Tablet,Delayed Release (Dr/Ec) 324 mg PO DAILY 30 Days Qty: 30 0RF sennosides-docusate sodium [Senna Plus] 8.6-50 mg Tablet 1 tab PO DAILY PRN (Reason: Constipation) 30 Days Qty: 30 0RF ascorbic acid (vitamin C) [Vitamin C] 500 mg Tablet 500 mg PO DAILY 30 Days Qty: 30 0RF Continued methadone 10 mg/mL Concentrate 128 mg PO DAILY Rx Instructions: Patient has 12/26/22 with her in the bottle Changed sumatriptan succinate [Imitrex] 50 mg tablet 50 mg PO DAILY PRN (Reason: migraine headache) 30 Days Qty: 4 1RF Discontinued zolpidem 10 mg tablet 10 mg PO BEDTIME PRN (Reason: insomnia) 30 Days Qty: 14 0RF clonazepam 1 mg tablet 1 mg PO BEDTIME PRN (Reason: anxiety) Qty: 14 1RF Rx Instructions: administer 30 minutes before bedtime fluoxetine 10 mg tablet 10 mg PO DAILY Qty: 30 3RF lorazepam 0.5 mg tablet 0.5 mg PO DAILY PRN (Reason: anxiety) No Action prazosin 1 mg Capsule 1 mg PO BEDTIME 30 Days Qty: 30 0RF Protocol: Hold for SBP< HOLD for SBP < : 90 gabapentin 300 mg Capsule 300 mg PO TID 30 Days Qty: 90 0RF fluoxetine 20 mg Capsule 40 mg PO DAILY 30 Days Qty: 60 0RF ibuprofen 200 mg Tablet 400 mg PO Q8H PRN (Reason: Pain) 30 Days Qty: 180 0RF zolpidem [Ambien] 10 mg tablet 10 mg PO BEDTIME PRN (Reason: insomnia) 7 Days Qty: 7 0RF Discharge Orders: Discharge Order (Routine); Ordered 12/20/22 Ordered By: Joseluis Shafer Diet: Regular diet Activity on Discharge: As tolerated Stand Alone Forms: Patient Portal Discharge page, Community Support Care Plan Goals: Maintain mood and safe behaviors Take medications as prescribed Continue to pursue sobriety Practice coping skills Continue with outpatient providers and reach out to them as needed Health Concerns: Mood stability and behaviors Anemia Plan of Treatment: Follow up with your PCP, psychiatric provider and other outpatient providers regarding above concerns Take medications as prescribed Assessment: Risk assessment at time of discharge:? Patient was interviewed prior to discharge and found to be fully oriented and without any SI or HI. Patient has insight and demonstrates good judgment in terms of wanting to pursue treatment. Patient is not in imminent risk of harm to self or others and has a safety plan that includes presenting to the closest ER or calling 911 if feeling unsafe.? Patient has been observed closely by nursing and unit staff throughout admission; patient has not engaged in any behaviors that suggest dangerousness to self or others and has demonstrated appropriate behaviors and impulse control Discharge Date/Time: 12/21/22 13:18
[2022-12-17 15:45] VITALS: BP 119/80; PULSE 76; TEMP 36.8
[2022-12-17] MEDS: Ibuprofen 800 MG TABLET PO (15:49)
[2022-12-17] MEDS: Gabapentin 100 MG CAPSULE PO (18:48)
[2022-12-17] MEDS: Zolpidem Tartrate 5 MG TABLET 10 MG PO (20:03)
[2022-12-18] MEDS: FLUoxetine HCl 20 MG CAPSULE PO (07:59)
[2022-12-18] MEDS: methADONE HCl 20 MG/2 ML ORAL.CONC 125 MG PO (07:59)
[2022-12-18] MEDS: Ascorbic Acid 500 MG TABLET PO (07:59)
[2022-12-18] MEDS: clonazePAM 0.5 MG TABLET PO ×2 (07:59→15:15)
[2022-12-18] MEDS: Sennosides/Docusate Sodium TABLET 1 TAB PO (08:11)
[2022-12-18 08:30] VITALS: BP 148/92; PULSE 89; RESP 18; TEMP 36.3; O2SAT 99
[2022-12-18] MEDS: Acetaminophen 325 MG TABLET 650 MG PO ×2 (10:24→19:59)
[2022-12-18] MEDS: Gabapentin 100 MG CAPSULE PO ×2 (10:24→16:48)
--- NOTE | 2022-12-18 16:38 | P.PNPSI_ITS ---
Subjective Subjective Date of Service: 12/18/22 Reason For Visit: depression, si Interim History: Patient seen, Chart reviewed. Case discussed with RN. Complaining of headache that is more constant than usual migraine. Taking PRN Ibuprofen and clonidine. Staying in bed due to anxiety. Anxious about discharge and how she will get into her house when discharged as she does not have a painter. Medication Compliance: Yes Side effects from medications: No Attending Groups: Intermittent Mental Status Exam Mental Status Exam Patient Appearance: Well Grooomed Patient Orientation: Situation Level of Consciousness: Awake Patient Behavior: Appropriate Mood Description: Withdrawn and Depressed Affect Description: Anxious Patient Cognition Impaired: No Ability to Follow Directions: Excellent Speech Pattern: Clear Memory Description: Intact Hallucinations: None Delusions: Not Present Thought Process: Intact Thought Content: positive for Intact Depressive Symptoms: Increased Anxiety Judgement: Fair Diagnostics Vital Signs (24Hr): Vital Signs - 24 hr 12/18/22 08:30 Temperature 97.4 F Pulse Rate 89 Respiratory Rate 18 Blood Pressure 148/92 H Pulse Oximetry 99 Oxygen Delivery Method Room Air BMI result Body Mass Index 25.4 Labs 12/14/22 08:40 12/14/22 08:40 Medications Medications Current Medications Acetaminophen (Acetaminophen 325 Mg Tablet) 650 mg PO Q6H PRN PRN Reason: Headache/Pain Mild Scale (1-3) Last Admin: 12/18/22 10:24 Dose: 650 mg Al Hydroxide/Mg Hydroxide (Magnesium Hydrox/Alum Hydrox 30 Ml Oral.Susp) 30 ml PO Q6H PRN PRN Reason: Heartburn/Nausea Ascorbic Acid (Ascorbic Acid 500 Mg Tablet) 500 mg PO DAILY [facility] Last Admin: 12/18/22 07:59 Dose: 500 mg Clonazepam (Clonazepam 0.5 Mg Tablet) 0.5 mg PO BID PRN PRN Reason: anxiety Last Admin: 12/18/22 15:15 Dose: 0.5 mg Clonidine HCl (Clonidine Hcl 0.1 Mg Tablet) 0.05 mg PO TID PRN; Protocol PRN Reason: anxiety Last Admin: 12/14/22 16:16 Dose: 0.05 mg Ferrous Sulfate (Ferrous Sulfate 324 Mg Tablet.) 324 mg PO DAILY [facility] Last Admin: 12/18/22 08:40 Dose: Not Given Fluoxetine HCl (Fluoxetine Hcl 20 Mg Capsule) 20 mg PO DAILY [facility] Last Admin: 12/18/22 07:59 Dose: 20 mg Gabapentin (Gabapentin 100 Mg Capsule) 100 mg PO TID PRN PRN Reason: anxiety Last Admin: 12/18/22 10:24 Dose: 100 mg Ibuprofen (Ibuprofen 800 Mg Tablet) 800 mg PO Q8H PRN PRN Reason: Pain, Mild (Pain Scale 1-3) Last Admin: 12/17/22 15:49 Dose: 800 mg Magnesium Hydroxide (Milk Of Magnesia 30 Ml Oral.Susp) 30 ml PO DAILY PRN PRN Reason: Constipation Methadone HCl (Methadone Hcl 20 Mg/2 Ml Oral.Conc) 125 mg PO DAILY [facility] Last Admin: 12/18/22 07:59 Dose: 125 mg Senna/Docusate Sodium (Sennosides/Docusate Sodium Tablet) 1 tab PO DAILY PRN PRN Reason: Constipation Last Admin: 12/18/22 08:11 Dose: 1 tab Sumatriptan Succinate (Sumatriptan Succinate 50 Mg Tablet) 50 mg PO DAILY PRN PRN Reason: migraine headache Zolpidem Tartrate (Zolpidem Tartrate 5 Mg Tablet) 10 mg PO BEDTIME PRN PRN Reason: insomnia Last Admin: 12/17/22 20:03 Dose: 10 mg Allergies Allergies Allergy/AdvReac Type Severity Reaction Status Date / Time diphenhydramine Allergy Severe RASH Verified 11/08/22 14:02 [From BENADRYL] trazodone [TRAZODONE] Allergy Severe DYSTONIC Verified 11/08/22 14:02 risperidone [Risperdal] Allergy Unknown anaphylaxis Verified 11/08/22 14:02 antipsychotic AdvReac Intermediate dystonia Uncoded 11/08/22 14:43 cold medicine AdvReac Intermediate dystonia Uncoded 11/08/22 14:43 Assessment & Plan Assessment & Plan (1) MDD (major depressive disorder), recurrent episode, severe: Status: Acute Code(s): F33.2 - Major depressive disorder, recurrent severe without psychotic features Assessment and Plan: 12/18: no medication changes (2) PTSD (post-traumatic stress disorder): Status: Acute Code(s): F43.10 - Post-traumatic stress disorder, unspecified (3) Anemia: Status: Acute Code(s): D64.9 - Anemia, unspecified Plan Patient is a 47 year old female with a history of depression, anxiety and PTSD, GERD, hx Hypothroid. Patient self [place] [facility] [place] with thoughts of SI and feeling unsafe -patient has history of bouts of severe depression; denies any history of manic episodes/behaviors -patient was recently started on Prozac 10 mg a few weeks ago by outpatient provider; agrees to increasing this medication; has had past medication trials with either no effect or adverse reaction -will admit for safety, stabilization and medication management Hospital course: 12/15 patient reports mood has improved a little; with medication adjustment feels like she can probably continue treatment as an outpatient soon. Discussed anemia and patient agrees to iron supplementation 12/17 patient is stabilizing; addressing trauma more; more hopeful. Patient grateful to stay over the weekend but feels ready to discharge on Tuesday to which team agrees. Plan: CV Q 15 minute checks Continue Prozac to 20 mg daily Continue iron tablet 325 mg daily plus vitamin-C 500 mg daily (patient wants once a day dosing) Clonidine p.r.n. for anxiety Continue clonazepam however will break it up to 0.5 mg b.i.d. p.r.n. (patient gets clonazepam 1 mg daily as an outpatient) Continue Ambien 10 mg q.h.s. (patient prescribed this as outpatient) 12/16 continue tx. Reason for continued inpatient stay Substantial Risk for: rapid decompensation Time Spent With Patient Time: Total time managing care of this patient today ____ minutes.
[2022-12-18 18:36] VITALS: BP 132/72; PULSE 72; TEMP 36.3
[2022-12-18] MEDS: Zolpidem Tartrate 5 MG TABLET 10 MG PO (19:59)
--- NOTE | 2022-12-19 08:21 | P.PNPSI_ITS ---
Subjective Subjective Date of Service: 12/19/22 Reason For Visit: depression, si Interim History: Preoccupied with concerns about not being able to get into her apartment if discharged tomorrow. Asking if she can be discharged Tuesday instead. Some sleep disturbance due to this worry. Taking PRN gabapentin regularly. Medication Compliance: Yes Side effects from medications: No Attending Groups: Intermittent Review of Systems Acute medical concerns: No Mental Status Exam Mental Status Exam Patient Appearance: Well Grooomed Patient Orientation: Person, Place, Time and Situation Level of Consciousness: Alert Patient Behavior: Appropriate Mood Description: Depressed and Anxious Affect Description: Anxious Speech Pattern: Clear Hallucinations: None Delusions: Not Present Thought Process: Goal Oriented Thought Content: positive for Suicidal Ideation (no active plan) Depressive Symptoms: Increased Anxiety, Insomnia and Difficulty Sleeping Judgement: Good Diagnostics Vital Signs (24Hr): Vital Signs - 24 hr 12/18/22 08:30 12/18/22 18:36 Temperature 97.4 F 97.3 F Pulse Rate 89 72 Respiratory Rate 18 Blood Pressure 148/92 H 132/72 Pulse Oximetry 99 Oxygen Delivery Method Room Air BMI result Body Mass Index 25.4 Labs 12/14/22 08:40 12/14/22 08:40 Medications Medications Current Medications Acetaminophen (Acetaminophen 325 Mg Tablet) 650 mg PO Q6H PRN PRN Reason: Headache/Pain Mild Scale (1-3) Last Admin: 12/18/22 19:59 Dose: 650 mg Al Hydroxide/Mg Hydroxide (Magnesium Hydrox/Alum Hydrox 30 Ml Oral.Susp) 30 ml PO Q6H PRN PRN Reason: Heartburn/Nausea Ascorbic Acid (Ascorbic Acid 500 Mg Tablet) 500 mg PO DAILY [facility] Last Admin: 12/18/22 07:59 Dose: 500 mg Clonazepam (Clonazepam 0.5 Mg Tablet) 0.5 mg PO BID PRN PRN Reason: anxiety Last Admin: 12/18/22 15:15 Dose: 0.5 mg Clonidine HCl (Clonidine Hcl 0.1 Mg Tablet) 0.05 mg PO TID PRN; Protocol PRN Reason: anxiety Last Admin: 12/14/22 16:16 Dose: 0.05 mg Ferrous Sulfate (Ferrous Sulfate 324 Mg Tablet.) 324 mg PO DAILY [facility] Last Admin: 12/18/22 08:40 Dose: Not Given Fluoxetine HCl (Fluoxetine Hcl 20 Mg Capsule) 20 mg PO DAILY [facility] Last Admin: 12/18/22 07:59 Dose: 20 mg Gabapentin (Gabapentin 100 Mg Capsule) 100 mg PO TID PRN PRN Reason: anxiety Last Admin: 12/18/22 16:48 Dose: 100 mg Ibuprofen (Ibuprofen 800 Mg Tablet) 800 mg PO Q8H PRN PRN Reason: Pain, Mild (Pain Scale 1-3) Last Admin: 12/17/22 15:49 Dose: 800 mg Magnesium Hydroxide (Milk Of Magnesia 30 Ml Oral.Susp) 30 ml PO DAILY PRN PRN Reason: Constipation Methadone HCl (Methadone Hcl 20 Mg/2 Ml Oral.Conc) 125 mg PO DAILY [facility] Last Admin: 12/18/22 07:59 Dose: 125 mg Senna/Docusate Sodium (Sennosides/Docusate Sodium Tablet) 1 tab PO DAILY PRN PRN Reason: Constipation Last Admin: 12/18/22 08:11 Dose: 1 tab Sumatriptan Succinate (Sumatriptan Succinate 50 Mg Tablet) 50 mg PO DAILY PRN PRN Reason: migraine headache Allergies Allergies Allergy/AdvReac Type Severity Reaction Status Date / Time diphenhydramine Allergy Severe RASH Verified 11/08/22 14:02 [From BENADRYL] trazodone [TRAZODONE] Allergy Severe DYSTONIC Verified 11/08/22 14:02 risperidone [Risperdal] Allergy Unknown anaphylaxis Verified 11/08/22 14:02 antipsychotic AdvReac Intermediate dystonia Uncoded 11/08/22 14:43 cold medicine AdvReac Intermediate dystonia Uncoded 11/08/22 14:43 Assessment & Plan Assessment & Plan (1) MDD (major depressive disorder), recurrent episode, severe: Status: Acute Code(s): F33.2 - Major depressive disorder, recurrent severe without psychotic features (2) PTSD (post-traumatic stress disorder): Status: Acute Code(s): F43.10 - Post-traumatic stress disorder, unspecified (3) Anemia: Status: Acute Code(s): D64.9 - Anemia, unspecified Plan Patient is a 47 year old female with a history of depression, anxiety and PTSD, GERD, hx Hypothroid. [place] [facility] [place] thoughts of [place] and feeling unsafe -patient has history of bouts of severe depression; denies any history of manic episodes/behaviors -patient was recently started on Prozac 10 mg a few weeks ago by outpatient prov ider; agrees to increasing this medication; has had past medication trials with either no effect or adverse reaction -will admit for safety, stabilization and medication management Hospital course: 12/15 patient reports mood has improved a little; with medication adjustment feels like she can probably continue treatment as an outpatient soon. Discussed anemia and patient agrees to iron supplementation 12/17 patient is stabilizing; addressing trauma more; more hopeful. Patient grateful to stay over the weekend but feels ready to discharge on Tuesday to which team agrees. Plan: CV Q 15 minute checks Continue Prozac to 20 mg daily Continue iron tablet 325 mg daily plus vitamin-C 500 mg daily (patient wants once a day dosing) Clonidine p.r.n. for anxiety Continue clonazepam however will break it up to 0.5 mg b.i.d. p.r.n. (patient gets clonazepam 1 mg daily as an outpatient) Continue Ambien 10 mg q.h.s. (patient prescribed this as outpatient) 12/16 continue tx. 12/18-No medication changes 12/19-consider making gabapentin standing dose Reason for continued inpatient stay Substantial Risk for: harm to self Time Spent With Patient Time: Total time managing care of this patient today ____ minutes.
[2022-12-19] MEDS: clonazePAM 0.5 MG TABLET PO ×2 (08:24→14:49)
[2022-12-19] MEDS: Ascorbic Acid 500 MG TABLET PO (08:24)
[2022-12-19] MEDS: methADONE HCl 20 MG/2 ML ORAL.CONC 125 MG PO (08:24)
[2022-12-19] MEDS: FLUoxetine HCl 20 MG CAPSULE PO (08:24)
[2022-12-19 08:32] VITALS: BP 138/75; PULSE 72; RESP 18; TEMP 36.5; O2SAT 100
[2022-12-19] MEDS: Sennosides/Docusate Sodium TABLET 1 TAB PO (08:45)
[2022-12-19] MEDS: Acetaminophen 325 MG TABLET 650 MG PO ×2 (09:26→18:27)
[2022-12-19] MEDS: Gabapentin 100 MG CAPSULE PO ×3 (10:42→20:11)
[2022-12-19 18:20] VITALS: BP 130/70; PULSE 69; TEMP 36.4
[2022-12-19] MEDS: Milk of Magnesia 30 ML ORAL.SUSP PO (20:11)
[2022-12-19] MEDS: Zolpidem Tartrate 5 MG TABLET PO (20:11)
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
[2022-12-20] MEDS: FLUoxetine HCl 20 MG CAPSULE PO (08:17)
[2022-12-20] MEDS: Ferrous Sulfate 324 MG TABLET.DR PO (08:17)
[2022-12-20] MEDS: Sennosides/Docusate Sodium TABLET 1 TAB PO (08:18)
[2022-12-20] MEDS: Gabapentin 100 MG CAPSULE PO ×3 (08:18→20:16)
[2022-12-20] MEDS: Ascorbic Acid 500 MG TABLET PO (08:18)
[2022-12-20] MEDS: methADONE HCl 20 MG/2 ML ORAL.CONC 125 MG PO (08:18)
[2022-12-20 08:55] VITALS: BP 136/80; PULSE 86; RESP 99; TEMP 36.8; O2SAT 99
[2022-12-20] MEDS: clonazePAM 0.5 MG TABLET PO ×2 (09:10→14:35)
[2022-12-20] MEDS: Ibuprofen 800 MG TABLET PO (11:26)
[2022-12-20] MEDS: Acetaminophen 325 MG TABLET 650 MG PO (16:31)
[2022-12-20 18:00] VITALS: BP 134/86; PULSE 82; TEMP 36.9; O2SAT 99
[2022-12-20] MEDS: Zolpidem Tartrate 5 MG TABLET PO ×2 (20:16→20:57)
[2022-12-21] MEDS: Ferrous Sulfate 324 MG TABLET.DR PO (07:58)
[2022-12-21] MEDS: FLUoxetine HCl 20 MG CAPSULE PO (07:58)
[2022-12-21] MEDS: Ascorbic Acid 500 MG TABLET PO (07:58)
[2022-12-21] MEDS: methADONE HCl 20 MG/2 ML ORAL.CONC 125 MG PO (08:00)
[2022-12-21] MEDS: clonazePAM 0.5 MG TABLET PO ×2 (08:19→11:41)
[2022-12-21] MEDS: Gabapentin 100 MG CAPSULE PO ×2 (08:19→11:41)
[2022-12-21 08:21] VITALS: BP 145/86; PULSE 78; RESP 16; TEMP 36.1; O2SAT 98
[2022-12-21] MEDS: Naloxone HCl Nasal TAKE HOME 4 MG SPRAY NOSTRILALT (11:41)
== END 2022-12-21 13:18 | disposition home or self-care (01) | DRG 885 ==
LOC: HO.ED 15:06 → HO.PM5 12-13 21:32
PROVIDERS: Physician Assistant; Admitting Provider Psychiatry & Neurology Psychiatry; Emergency Provider Emergency Medicine; PCP Internal Medicine; Visit Provider Psychiatry & Neurology Psychiatry
DX: F33.2 Major depressive disorder, recurrent severe without psychotic features (principal); R45.851 Suicidal ideations; F11.20 Opioid dependence, uncomplicated; D64.9 Anemia, unspecified; E03.9 Hypothyroidism, unspecified; F43.10 Post-traumatic stress disorder, unspecified; Z20.822 Contact with and (suspected) exposure to COVID-19; Z79.899 Other long term (current) drug therapy
CPT/HCPCS: 36415; 80048; 80053; 80061; 80076; 80307; 81025; 82077; 82272; 82607; 82746; 83540; 84443; 85025; 87635; 93005; 99285; S9485

== ENCOUNTER 2022-12-25 22:03 | Inpatient (IN) | payer OTHER, SELFPAY ==
[2022-12-25 22:11] VITALS: BP 132/85; PULSE 84; RESP 16; TEMP 36.2; O2SAT 99; BMI 25.2
[2022-12-25 22:50] LABS: MANUAL DIFF FLAG NO
[2022-12-25 22:54] LABS: Basophils Percent Auto 0.6 % (0-2); Eosinophils Absolute Auto 0.1 X10*3/uL (0.0-0.4); Eosinophils Percent Auto 2.8 % (0-4); Hematocrit 27.4 % (37.0-47.0); Hemoglobin 8.2 g/dl (12.0-16.0); Imm Gran Abs Auto 0.01 X10*3/uL (0.00-0.03); Imm Gran Pct Auto 0.2 % (0.0-0.4); Lymphocytes Absolute Auto 1.5 X10*3/uL (1.2-4.9); Lymphocytes Percent Auto 31.4 % (20-40); Mean Corpuscular HGB Conc 29.9 g/dl (31.0-35.0); Mean Corpuscular Hemoglobin 22.7 pg (27.0-33.0); Mean Corpuscular Volume 75.7 fL (80.0-98.0); Mean Platelet Volume 10.7 fL (9.4-12.3); Monocytes Absolute Auto 0.4 X10*3/uL (0.1-1.2); Monocytes Percent Auto 8.9 % (2-11); Neutrophils Absolute Auto 2.6 x10*3/uL (2.0-8.3); Neutrophils Percent Auto 56.1 % (45-73); Platelet Count 320 X10*3/uL (160-400); Red Blood Count 3.62 X10*6/uL (4.20-5.50); Red Cell Distribution Width 19.3 % (11.0-16.0); White Blood Count 4.7 X10*3/uL (4.8-10.8)
[2022-12-25 22:56] LABS: Urine Pregnancy NEGATIVE (NEGATIVE)
[2022-12-25 22:57] LABS: UPreg QC Valid YES
[2022-12-25 23:06] LABS: Amphetamine Screen Urine Not Detected (Not Detect); Barbiturates, Urine Not Detected (Not Detect); Benzodiazepines Screen Urine POSITIVE (Not Detect); Cannabinoid Screen Urine Not Detected (Not Detect); Cocaine Screen Urine POSITIVE (Not Detect); Fentanyl, urine Not Detected (Not Detect); Opiate Screen Urine Not Detected (Not Detect); Phencyclidine Screen Urine Not Detected (Not Detect)
[2022-12-25 23:08] LABS: Alanine Aminotransferase 14 U/L (0-31); Albumin Level 4.2 g/dL (3.5-5.0); Alkaline Phosphatase 68 U/L (39-117); Anion Gap 12 (12-20); Aspartate Amino Transferase 18 U/L (5-31); Bilirubin Total 0.2 mg/dL (0.0-1.0); Blood Urea Nitrogen 16 mg/dL (9-16); Calcium 8.7 mg/dL (8.4-10.2); Carbon Dioxide 25 mmol/L (22-29); Chloride 108 mmol/L (96-108); Creatinine Clr Calc Pharmacy 81.2; Estimated Glomerular Filt Rate > 60; Glucose Random 80 mg/dL (60-115); Sodium 141 mmol/L (135-145)
[2022-12-25 23:09] LABS: COVID-19 Test Negative (Negative); IDNOW Serial# 6674DD1D
[2022-12-25 23:10] LABS: Ethanol < 10 mg/dL
--- NOTE | 2022-12-26 01:22 | ED.PSYCH ---
HPI - Psych General Chief Complaint: Psychiatric Symptoms <Carol Ann Perrin MD - Last Filed: 12/26/22 01:26> Stated Complaint: NOT FEELING RIGHT AFTER MEDICINE PER EMS <Carol Ann Perrin MD - Last Filed: 12/26/22 01:26> Time Seen by Provider: 12/25/22 22:36 <Carol Ann Perrin MD - Last Filed: 12/26/22 01:26> Source: patient <Carol Ann Perrin MD - Last Filed: 12/26/22 01:26> Mode of arrival: ambulatory <Carol Ann Perrin MD - Last Filed: 12/26/22 01:26> Limitations: no limitations <Carol Ann Perrin MD - Last Filed: 12/26/22 01:26> History of Present Illness HPI Narrative: Patient comes in the emergency room complaining of suicidal ideation, depression. Patient states that she was recently discharged on December 20, some medications were changed, and patient states that her current regimen is not working out for her. Patient denies homicidal ideation. Patient coming from a longterm <Carol Ann Perrin MD - Last Filed: 12/26/22 01:26> Related Data Home Medications: Home Medications Medication Instructions Recorded Confirmed ibuprofen 200 mg tablet 400 mg PO Q8H PRN Pain 12/12/22 12/25/22 methadone 10 mg/mL oral concentrate 128 mg PO DAILY 12/12/22 12/26/22 clonazepam 0.5 mg tablet 0.5 mg PO BID PRN Anxiety 12/25/22 12/25/22 fluoxetine 20 mg capsule 20 mg PO DAILY 12/25/22 12/25/22 gabapentin 100 mg capsule 100 mg PO TID 12/25/22 12/25/22 Previous Rx's Medication Instructions Recorded ascorbic acid (vitamin C) 500 mg 500 mg PO DAILY 30 days #30 tabs 12/17/22 tablet (Vitamin C) clonidine HCl 0.1 mg tablet 0.05 mg PO TID PRN anxiety 30 days 12/17/22 #60 tabs ferrous sulfate 324 mg (65 mg 324 mg PO DAILY 30 days #30 tabs 12/17/22 iron) tablet,delayed release sennosides 8.6 mg-docusate sodium 1 tab PO DAILY PRN Constipation 30 12/17/22 50 mg tablet (Senna Plus) days #30 tabs sumatriptan succinate 50 mg tablet 50 mg PO DAILY PRN migraine 12/17/22 (Imitrex) headache 30 days #4 tabs zolpidem 10 mg tablet (Ambien) 10 mg PO BEDTIME PRN insomnia 30 12/21/22 days #30 tabs <Carol Ann Perrin MD - Last Filed: 12/26/22 01:26> Allergies/Adverse Reactions: Allergies Allergy/AdvReac Type Severity Reaction Status Date / Time diphenhydramine Allergy Severe RASH Verified 11/08/22 14:02 [From BENADRYL] trazodone [TRAZODONE] Allergy Severe DYSTONIC Verified 11/08/22 14:02 risperidone [Risperdal] Allergy Unknown anaphylaxis Verified 11/08/22 14:02 antipsychotic AdvReac Intermediate dystonia Uncoded 11/08/22 14:43 cold medicine AdvReac Intermediate dystonia Uncoded 11/08/22 14:43 <Carol Ann Perrin MD - Last Filed: 12/26/22 01:26> Review of Systems Review of Systems: Constitutional : No Weight loss, No Fever, No Chills, No Night Sweats, No Fatigue, No Malaise ENT/Mouth : No Hearing loss, No Ear Pain, No Nasal Congestion, No Sinus Pain, No Hoarseness, No sore throat, No Rhinorrhea, No Swallowing Difficulty Eyes: No Eye Pain, No Swelling, No Redness, No Foreign Body, No Discharge, No Vision Changes Cardiovascular : No Chest Pain, No SOB, No Dyspnea on Exertion, No Orthopnea, No Edema, No Palpitations Respiratory : No Cough, No Sputum, No Wheezing, No Smoke Exposure, No Dyspnea Gastrointestinal : No Nausea, No Vomiting, No Diarrhea, No Constipation, No abdominal Pain, No Hematochezia, No Melena Genitourinary : no irregular bleeding, No Dysuria, No Urinary Frequency, No Hematuria, No Urinary Incontinence, No Urgency, No Flank Pain, No Urinary Flow Changes, No Hesitancy Musculoskeletal : No joint pain, No Myalgias, No Joint Swelling Skin : No Skin Lesions, No rash Neuro : No Weakness, No Numbness, No Paresthesias, No Loss of Consciousness, No Dizziness, No Headache Psych : Complaint anxiety depression, vague SI, no HI, Heme/Lymph: No Bruising, No Bleeding,No Lymphadenopathy Endocrine : No Polyuria, No Polydipsia, No Temperature Intolerance <Carol Ann Perrin MD - Last Filed: 12/26/22 01:26> [facility] Past Medical History Medical History: Medical History Anemia GERD (gastroesophageal reflux disease) Hypothyroid Insomnia MDD (major depressive disorder), recurrent episode, severe Migraine Panic attacks Peptic ulcer disease Polysubstance abuse PTSD (post-traumatic stress disorder) <Carol Ann Perrin MD - Last Filed: 12/26/22 01:26> Surgical History: Surgical History History of section <Carol Ann Perrin MD - Last Filed: 12/26/22 01:26> Family History Family History: Family History Father COPD (chronic obstructive pulmonary disease) Lung cancer Mother No problems noted. Maternal Grandmother Esophageal cancer Maternal Grandfather Pancreatic cancer Paternal Grandmother Esophageal cancer Stomach cancer Maternal Aunt Breast cancer <Carol Ann Perrin MD - Last Filed: 12/26/22 01:26> Social History Social History: Social History Household Members: Other Household Members Other:: room mate Housing: Apartment Do you presently have visiting nurse or other home services: No Alcohol intake: unknown Patient Tobacco Use Status: Never used Tobacco Tobacco use type: Cigarette e-Cigarette/Vaping Use: Never Used Second Hand Smoke Exposure: No Substance Use Type: Crack/Cocaine Advance Directives: No Advance Directives Information Provided: No Healthcare Proxy: No Guardian: No service: No Current occupational status: employed Sexual orientation: Straight/Heterosexual Cognitive needs: No Hearing needs: No Vision needs: No <Carol Ann Perrin MD - Last Filed: 12/26/22 01:26> Physical Exam Vital Signs: Vital Signs: Last Vital Signs Temp 97.9 F 12/26/22 09:01 Pulse 67 12/26/22 09:01 Resp 18 12/26/22 09:01 BP 116/77 12/26/22 09:01 Pulse Ox 99 12/26/22 09:01 O2 Del Method Room Air 12/26/22 09:01 BMI result Body Mass Index 25.2 <Carol Ann Perrin MD - Last Filed: 12/26/22 01:26> Vital Signs: Last Vital Signs Temp 97.9 F 12/26/22 09:01 Pulse 67 12/26/22 09:01 Resp 18 12/26/22 09:01 BP 116/77 12/26/22 09:01 Pulse Ox 99 12/26/22 09:01 O2 Del Method Room Air 12/26/22 09:01 BMI result Body Mass Index 25.2 <Sukh Whitman MD - Last Filed: 12/26/22 13:25> Const: Other: Appearance: Alert. Oriented X3. No acute distress. Eyes: Pupils equal, round and reactive to light. ENT: Pharynx normal. Neck: Normal inspection. Neck supple. No lymph nodes noted. No crepitus CVS: Normal heart rate and rhythm. Pulses normal. Normal S1 and S2 Respiratory: No respiratory distress. Breath sounds normal. No Wheezing. No rales Abdomen: Soft and nontender. No rigidity. No distention. Skin: Skin warm and dry. Normal skin color. Normal skin turgor. Extremities: No lower extremity edema. No Lacerations. No Rash Neuro: Oriented X 3. No motor deficit. No sensory deficit. Moving all extremities. No slurred speech. CN 2 through 12 grossly intact Psych: calm, cooperative, normal affect <Carol Ann Perrin MD - Last Filed: 12/26/22 01:26> Course Course Course Narrative: -patient has chronic anemia. Hemoglobin today 8.2. Patient does not have any chest pain or shortness of breath, transfusion not indicated at this time. Chemistry unremarkable, test negative -urine tested positive for cocaine. -care team consult pending -physician ulceration started at 01:20 <Carol Ann Perrin MD - Last Filed: 12/26/22 01:26> Reevaluation(s) Reevaluation #1: [id number]: Physician observation continued: Patient's medications were reconciled in ordered. Patient was ordered to get methadone 55 mg daily. Patient is waiting for care team evaluation. Patient will be kept in the emergency department Behavioral Health Unit until disposition can be determined <Sukh Whitman MD - Last Filed: 12/26/22 13:25> Time: 09:05 <Sukh Whitman MD - Last Filed: 12/26/22 13:25> Reevaluation #2: Patient is evaluated by the care team the patient will be admitted for further psychiatric care. <Sukh Whitman MD - Last Filed: 12/26/22 13:25> Time: 13:25 <Sukh Whitman MD - Last Filed: 12/26/22 13:25> Medications Administered Generic Name Dose Route Start Last Admin Trade Name Freq PRN Reason Stop Dose Admin Ascorbic Acid 500 mg 12/26/22 09:00 12/26/22 09:25 Ascorbic Acid 500 Mg Tablet PO 500 mg DAILY YESENIA Administration Clonazepam 0.5 mg 12/26/22 06:32 12/26/22 10:55 Clonazepam 0.5 Mg Tablet PO 0.5 mg BID PRN Administration Anxiety Ferrous Sulfate 324 mg 12/26/22 09:00 12/26/22 09:14 Ferrous Sulfate 324 Mg Tablet. PO 324 mg DAILY YESENIA Administration Fluoxetine HCl 20 mg 12/26/22 09:00 12/26/22 09:14 Fluoxetine Hcl 20 Mg Capsule PO 20 mg DAILY YESENIA Administration Gabapentin 100 mg 12/26/22 09:00 12/26/22 09:25 Gabapentin 100 Mg Capsule PO 100 mg TID YESENIA Administration Methadone HCl 128 mg 12/26/22 09:00 12/26/22 09:17 Methadone Hcl 20 Mg/2 Ml Oral.Conc PO 128 mg DAILY YESENIA Administration Discontinued Medications Generic Name Dose Route Start Last Admin Trade Name Freq PRN Reason Stop Dose Admin Lorazepam 2 mg 12/26/22 01:28 12/26/22 01:31 Lorazepam 1 Mg Tablet PO 12/26/22 01:29 2 mg ONCE ONE Administration <Carol Ann Perrin MD - Last Filed: 12/26/22 01:26> Medications Administered Generic Name Dose Route Start Last Admin Trade Name Freq PRN Reason Stop Dose Admin Ascorbic Acid 500 mg 12/26/22 09:00 12/26/22 09:25 Ascorbic Acid 500 Mg Tablet PO 500 mg DAILY YESENIA Administration Clonazepam 0.5 mg 12/26/22 06:32 12/26/22 10:55 Clonazepam 0.5 Mg Tablet PO 0.5 mg BID PRN Administration Anxiety Ferrous Sulfate 324 mg 12/26/22 09:00 12/26/22 09:14 Ferrous Sulfate 324 Mg Tablet. PO 324 mg DAILY YESENIA Administration Fluoxetine HCl 20 mg 12/26/22 09:00 12/26/22 09:14 Fluoxetine Hcl 20 Mg Capsule PO 20 mg DAILY YESENIA Administration Gabapentin 100 mg 12/26/22 09:00 12/26/22 09:25 Gabapentin 100 Mg Capsule PO 100 mg TID YESENIA Administration Methadone HCl 128 mg 12/26/22 09:00 12/26/22 09:17 Methadone Hcl 20 Mg/2 Ml Oral.Conc PO 128 mg DAILY YESENIA Administration Discontinued Medications Generic Name Dose Route Start Last Admin Trade Name Ileana PRN Reason Stop Dose Admin Lorazepam 2 mg 12/26/22 01:28 12/26/22 01:31 Lorazepam 1 Mg Tablet PO 12/26/22 01:29 2 mg ONCE ONE Administration <Sukh Whitman MD - Last Filed: 12/26/22 13:25> Medical Decision Making Lab Data Result Diagrams: 12/25/22 22:42 12/25/22 22:43 <Carol Ann Perrin MD - Last Filed: 12/26/22 01:26> Labs: Lab Results 12/25/22 12/25/22 12/25/22 Range/Units 22:42 22:42 22:43 WBC 4.7 L (4.8-10.8) X10*3/uL RBC 3.62 L (4.20-5.50) X10*6/uL Hgb 8.2 L (12.0-16.0) g/dl Hct 27.4 L (37.0-47.0) % MCV 75.7 L (80.0-98.0) fL MCH 22.7 L (27.0-33.0) pg MCHC 29.9 L (31.0-35.0) g/dl RDW 19.3 H (11.0-16.0) % Plt Count 320 D (160-400) X10*3/uL MPV 10.7 (9.4-12.3) fL Immature Gran % (Auto) 0.2 (0.0-0.4) % Neut % (Auto) 56.1 (45-73) % Lymph % (Auto) 31.4 (20-40) % [place] % (Auto) 8.9 (2-11) % Eos % (Auto) 2.8 (0-4) % Baso % (Auto) 0.6 (0-2) % Lymph # (Auto) 1.5 (1.2-4.9) X10*3/uL [place] # (Auto) 0.4 (0.1-1.2) X10*3/uL Eos # (Auto) 0.1 (0.0-0.4) X10*3/uL Baso # (Auto) 0.0 (0.0-0.2) X10*3/uL Abs Immat Gran (auto) 0.01 (0.00-0.03) X10*3/uL Absolute Neuts (auto) 2.6 (2.0-8.3) x10*3/uL Absolute Nucleated RBC 0.000 (0.0-0.012) X10*3/uL Nucleated RBC % (auto) 0.0 (0.0-0.2) /100WBC Sodium 141 (135-145) mmol/L Potassium 4.0 (3.3-5.1) mmol/L Chloride 108 (96-108) mmol/L Carbon Dioxide 25 (22-29) mmol/L Anion Gap 12 (12-20) BUN 16 (9-16) mg/dL Creatinine 0.70 (0.5-1.4) mg/dL Estim Creat Clear Calc 81.2 Estimated GFR > 60 Random Glucose 80 (60-115) mg/dL Calcium 8.7 (8.4-10.2) mg/dL Total Bilirubin 0.2 (0.0-1.0) mg/dL AST 18 (5-31) U/L ALT 14 (0-31) U/L Alkaline Phosphatase 68 (39-117) U/L Total Protein 8.0 (6.5-8.0) g/dL Albumin 4.2 (3.5-5.0) g/dL Urine Test (NEGATIVE) Urine Opiates Screen (Not Detect) Urine Fentanyl Screen (Not Detect) Ur Barbiturates Screen (Not Detect) Ur Phencyclidine Scrn (Not Detect) Ur Amphetamines Screen (Not Detect) U Benzodiazepines Scrn (Not Detect) Urine Cocaine Screen (Not Detect) U Marijuana (THC) Screen (Not Detect) Ethyl Alcohol mg/dL COVID-19 (STEVEN) Negative (Negative) COVID-19 Clin Com See Note 04/12/25/22 12/25/22 Range/Units 22:43 22:43 22:43 WBC (4.8-10.8) X10*3/uL RBC (4.20-5.50) X10*6/uL Hgb (12.0-16.0) g/dl Hct (37.0-47.0) % MCV (80.0-98.0) fL MCH (27.0-33.0) pg MCHC (31.0-35.0) g/dl RDW (11.0-16.0) % Plt Count (160-400) X10*3/uL MPV (9.4-12.3) fL Immature Gran % (Auto) (0.0-0.4) % Neut % (Auto) (45-73) % Lymph % (Auto) (20-40) % [place] % (Auto) (2-11) % Eos % (Auto) (0-4) % Baso % (Auto) (0-2) % Lymph # (Auto) (1.2-4.9) X10*3/uL [place] # (Auto) (0.1-1.2) X10*3/uL Eos # (Auto) (0.0-0.4) X10*3/uL Baso # (Auto) (0.0-0.2) X10*3/uL Abs Immat Gran (auto) (0.00-0.03) X10*3/uL Absolute Neuts (auto) (2.0-8.3) x10*3/uL Absolute Nucleated RBC (0.0-0.012) X10*3/uL Nucleated RBC % (auto) (0.0-0.2) /100WBC Sodium (135-145) mmol/L Potassium (3.3-5.1) mmol/L Chloride (96-108) mmol/L Carbon Dioxide (22-29) mmol/L Anion Gap (12-20) BUN (9-16) mg/dL Creatinine (0.5-1.4) mg/dL Estim Creat Clear Calc Estimated GFR Random Glucose (60-115) mg/dL Calcium (8.4-10.2) mg/dL Total Bilirubin (0.0-1.0) mg/dL AST (5-31) U/L ALT (0-31) U/L Alkaline Phosphatase (39-117) U/L Total Protein (6.5-8.0) g/dL Albumin (3.5-5.0) g/dL Urine Test NEGATIVE (NEGATIVE) Urine Opiates Screen Not Detected (Not Detect) Urine Fentanyl Screen Not Detected (Not Detect) Ur Barbiturates Screen Not Detected (Not Detect) Ur Phencyclidine Scrn Not Detected (Not Detect) Ur Amphetamines Screen Not Detected (Not Detect) U Benzodiazepines Scrn POSITIVE H (Not Detect) Urine Cocaine Screen POSITIVE H (Not Detect) U Marijuana (THC) Screen Not Detected (Not Detect) Ethyl Alcohol < 10 mg/dL COVID-19 (STEVEN) (Negative) COVID-19 Clin Com <Caorl Ann Perrin MD - Last Filed: 12/26/22 01:26> Lab Results 12/25/22 12/25/22 12/25/22 Range/Units 22:42 22:42 22:43 WBC 4.7 L (4.8-10.8) X10*3/uL RBC 3.62 L (4.20-5.50) X10*6/uL Hgb 8.2 L (12.0-16.0) g/dl Hct 27.4 L (37.0-47.0) % MCV 75.7 L (80.0-98.0) fL MCH 22.7 L (27.0-33.0) pg MCHC 29.9 L (31.0-35.0) g/dl RDW 19.3 H (11.0-16.0) % Plt Count 320 D (160-400) X10*3/uL MPV 10.7 (9.4-12.3) fL Immature Gran % (Auto) 0.2 (0.0-0.4) % Neut % (Auto) 56.1 (45-73) % Lymph % (Auto) 31.4 (20-40) % [place] % (Auto) 8.9 (2-11) % Eos % (Auto) 2.8 (0-4) % Baso % (Auto) 0.6 (0-2) % Lymph # (Auto) 1.5 (1.2-4.9) X10*3/uL [place] # (Auto) 0.4 (0.1-1.2) X10*3/uL Eos # (Auto) 0.1 (0.0-0.4) X10*3/uL Baso # (Auto) 0.0 (0.0-0.2) X10*3/uL Abs Immat Gran (auto) 0.01 (0.00-0.03) X10*3/uL Absolute Neuts (auto) 2.6 (2.0-8.3) x10*3/uL Absolute Nucleated RBC 0.000 (0.0-0.012) X10*3/uL Nucleated RBC % (auto) 0.0 (0.0-0.2) /100WBC Sodium 141 (135-145) mmol/L Potassium 4.0 (3.3-5.1) mmol/L Chloride 108 (96-108) mmol/L Carbon Dioxide 25 (22-29) mmol/L Anion Gap 12 (12-20) BUN 16 (9-16) mg/dL Creatinine 0.70 (0.5-1.4) mg/dL Estim Creat Clear Calc 81.2 Estimated GFR > 60 Random Glucose 80 (60-115) mg/dL Calcium 8.7 (8.4-10.2) mg/dL Total Bilirubin 0.2 (0.0-1.0) mg/dL AST 18 (5-31) U/L ALT 14 (0-31) U/L Alkaline Phosphatase 68 (39-117) U/L Total Protein 8.0 (6.5-8.0) g/dL Albumin 4.2 (3.5-5.0) g/dL Urine Test (NEGATIVE) Urine Opiates Screen (Not Detect) Urine Fentanyl Screen (Not Detect) Ur Barbiturates Screen (Not Detect) Ur Phencyclidine Scrn (Not Detect) Ur Amphetamines Screen (Not Detect) U Benzodiazepines Scrn (Not Detect) Urine Cocaine Screen (Not Detect) U Marijuana (THC) Screen (Not Detect) Ethyl Alcohol mg/dL COVID-19 (STEVEN) Negative (Negative) COVID-19 Clin Com See Note 12/25/22 12/25/22 12/25/22 Range/Units 22:43 22:43 22:43 WBC (4.8-10.8) X10*3/uL RBC (4.20-5.50) X10*6/uL Hgb (12.0-16.0) g/dl Hct (37.0-47.0) % MCV (80.0-98.0) fL MCH (27.0-33.0) pg MCHC (31.0-35.0) g/dl RDW (11.0-16.0) % Plt Count (160-400) X10*3/uL MPV (9.4-12.3) fL Immature Gran % (Auto) (0.0-0.4) % Neut % (Auto) (45-73) % Lymph % (Auto) (20-40) % [place] % (Auto) (2-11) % Eos % (Auto) (0-4) % Baso % (Auto) (0-2) % Lymph # (Auto) (1.2-4.9) X10*3/uL [place] # (Auto) (0.1-1.2) X10*3/uL Eos # (Auto) (0.0-0.4) X10*3/uL Baso # (Auto) (0.0-0.2) X10*3/uL Abs Immat Gran (auto) (0.00-0.03) X10*3/uL Absolute Neuts (auto) (2.0-8.3) x10*3/uL Absolute Nucleated RBC (0.0-0.012) X10*3/uL Nucleated RBC % (auto) (0.0-0.2) /100WBC Sodium (135-145) mmol/L Potassium (3.3-5.1) mmol/L Chloride (96-108) mmol/L Carbon Dioxide (22-29) mmol/L Anion Gap (12-20) BUN (9-16) mg/dL Creatinine (0.5-1.4) mg/dL Estim Creat Clear Calc Estimated GFR Random Glucose (60-115) mg/dL Calcium (8.4-10.2) mg/dL Total Bilirubin (0.0-1.0) mg/dL AST (5-31) U/L ALT (0-31) U/L Alkaline Phosphatase (39-117) U/L Total Protein (6.5-8.0) g/dL Albumin (3.5-5.0) g/dL Urine Test NEGATIVE (NEGATIVE) Urine Opiates Screen Not Detected (Not Detect) Urine Fentanyl Screen Not Detected (Not Detect) Ur Barbiturates Screen Not Detected (Not Detect) Ur Phencyclidine Scrn Not Detected (Not Detect) Ur Amphetamines Screen Not Detected (Not Detect) U Benzodiazepines Scrn POSITIVE H (Not Detect) Urine Cocaine Screen POSITIVE H (Not Detect) U Marijuana (THC) Screen Not Detected (Not Detect) Ethyl Alcohol < 10 mg/dL COVID-19 (STEVEN) (Negative) COVID-19 Clin Com <Sukh Whitman MD - Last Filed: 12/26/22 13:25> Discharge Plan Discharge Clinical Impression: Anxiety and depression, Suicidal ideation <Carol Ann Perrin MD - Last Filed: 12/26/22 01:26> Patient Disposition: Still a Patient <Carol Ann Perrin MD - Last Filed: 12/26/22 01:26> Prescriptions: No Action ibuprofen 200 mg Tablet 400 mg PO Q8H PRN (Reason: Pain) methadone 10 mg/mL Concentrate 128 mg PO DAILY Rx Instructions: Patient has 12/26/22 with her in the bottle ferrous sulfate 324 mg (65 mg iron) Tablet,Delayed Release (Dr/Ec) 324 mg PO DAILY 30 Days Qty: 30 0RF clonidine HCl 0.1 mg Tablet 0.05 mg PO TID PRN (Reason: anxiety) 30 Days Qty: 60 0RF Protocol: Hold for SBP< HOLD for SBP < : 90 sennosides-docusate sodium [Senna Plus] 8.6-50 mg Tablet 1 tab PO DAILY PRN (Reason: Constipation) 30 Days Qty: 30 0RF ascorbic acid (vitamin C) [Vitamin C] 500 mg Tablet 500 mg PO DAILY 30 Days Qty: 30 0RF sumatriptan succinate [Imitrex] 50 mg tablet 50 mg PO DAILY PRN (Reason: migraine headache) 30 Days Qty: 4 1RF zolpidem [Ambien] 10 mg tablet 10 mg PO BEDTIME PRN (Reason: insomnia) 30 Days Qty: 30 0RF gabapentin 100 mg capsule 100 mg PO TID fluoxetine 20 mg capsule 20 mg PO DAILY clonazepam 0.5 mg tablet 0.5 mg PO BID PRN (Reason: Anxiety) <Carol Ann Perrin MD - Last Filed: 12/26/22 01:26> Interventions: [place]-Suicide Risk Severity Scale Last Done: 12/26/22 05:48 <Carol Ann Perrin MD - Last Filed: 12/26/22 01:26>
[2022-12-26] MEDS: LORazepam 1 MG TABLET 2 MG PO (01:31)
[2022-12-26 01:55] VITALS: BP 126/83; PULSE 64; RESP 15; TEMP 36.6; O2SAT 98
--- NOTE | 2022-12-26 05:52 | PC.NURSE ---
Patient slept through the night, Ativan 2 mg PO administered as ordered for sleep, med rec completed/pending provider's approval, methadone verification completed, care consult ordered pending evaluation, behavior non concerning, will continue to monitor.
--- NOTE | 2022-12-26 07:54 | PHA.MEDREC ---
Pharmacy Consult ? Medication Reconciliation Pharmacy has completed the medication reconciliation. Reviewed med rec done by nursing (Neel).
[2022-12-26 09:01] VITALS: BP 116/77; PULSE 67; RESP 18; TEMP 36.6; O2SAT 99
[2022-12-26] MEDS: FLUoxetine HCl 20 MG CAPSULE PO (09:14)
[2022-12-26] MEDS: Ferrous Sulfate 324 MG TABLET.DR PO (09:14)
[2022-12-26] MEDS: methADONE HCl 20 MG/2 ML ORAL.CONC 128 MG PO (09:17)
[2022-12-26] MEDS: Ascorbic Acid 500 MG TABLET PO (09:25)
[2022-12-26] MEDS: Gabapentin 100 MG CAPSULE PO ×3 (09:25→20:27)
[2022-12-26] MEDS: clonazePAM 0.5 MG TABLET PO ×2 (10:55→20:27)
--- NOTE | 2022-12-26 12:44 | MHC.CARE ---
Patient evaluated by the CARE Team, she will require inpatient psychiatric treatment. Dr Whitman updated
--- NOTE | 2022-12-26 13:54 | ECG_ITS ---
Test Reason : Cocaine Blood Pressure : / mmHG Vent. Rate : 062 BPM Atrial Rate : 062 BPM P-R Int : 108 ms QRS Dur : 074 ms QT Int : 406 ms P-R-T Axes : 035 -19 004 degrees QTc Int : 412 ms Sinus rhythm with short WI Nonspecific T wave abnormality Abnormal ECG When compared with ECG of 13-DEC-2022 12:53, No significant change was found Referred By: Sukh Whitman Electronically Signed By:Mirza Gold
[2022-12-26 19:52] VITALS: BP 113/74; PULSE 73; RESP 18; TEMP 37; O2SAT 98
[2022-12-26] MEDS: Zolpidem Tartrate 5 MG TABLET PO (20:27)
--- NOTE | 2022-12-26 20:59 | PC.NURSE ---
bedtime medications administered. patient tells this RN she is supposed to receive 10mg Ambien but only ordered for 5 mg. will discuss with provider. pt in no apparent distress, ambulatory with steady gait to and from bathroom
--- NOTE | 2022-12-26 21:10 | PC.NURSE ---
report given to Clair CLARK. pt to go to [facility].
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
[2022-12-27 08:29] LABS: Alanine Aminotransferase 12 U/L (0-31); Alkaline Phosphatase 64 U/L (39-117); Anion Gap 13 (12-20); Aspartate Amino Transferase 15 U/L (5-31); Bilirubin Total 0.3 mg/dL (0.0-1.0); Blood Urea Nitrogen 20 mg/dL (9-16); Calcium 9.1 mg/dL (8.4-10.2); Carbon Dioxide 23 mmol/L (22-29); Chloride 109 mmol/L (96-108); Cholesterol 208 mg/dL; Creatinine Clr Calc Pharmacy 66.9; Estimated Glomerular Filt Rate > 60; Glucose Fasting 89 mg/dL (60-99); HDL Cholesterol 57 mg/dL; LDL Cholesterol Calculated 139 mg/dl; Potassium 4.9 mmol/L (3.3-5.1); Sodium 140 mmol/L (135-145); Total Protein 7.5 g/dL (6.5-8.0); Triglycerides 61 mg/dL
[2022-12-27 08:42] VITALS: BP 119/74; PULSE 80; RESP 16; TEMP 36.4; O2SAT 99
[2022-12-27] MEDS: Ascorbic Acid 500 MG TABLET PO (08:55)
[2022-12-27] MEDS: clonazePAM 0.5 MG TABLET PO (08:55)
[2022-12-27] MEDS: Ferrous Sulfate 324 MG TABLET.DR PO (08:55)
[2022-12-27] MEDS: FLUoxetine HCl 20 MG CAPSULE PO (08:55)
[2022-12-27] MEDS: Gabapentin 100 MG CAPSULE PO ×3 (08:55→20:50)
[2022-12-27] MEDS: methADONE HCl 20 MG/2 ML ORAL.CONC 128 MG PO (08:55)
[2022-12-27 14:33] VITALS: BP 123/78; PULSE 66
[2022-12-27] MEDS: LORazepam 1 MG TABLET PO (14:34)
[2022-12-27] MEDS: cloNIDine HCL 0.1 MG TABLET 0.05 MG PO ×2 (14:36→20:51)
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
[2022-12-27 20:45] VITALS: BP 118/73; PULSE 70; RESP 16; TEMP 36.8; O2SAT 99
[2022-12-27] MEDS: Zolpidem Tartrate 5 MG TABLET 10 MG PO (20:51)
[2022-12-28] MEDS: Ferrous Sulfate 324 MG TABLET.DR PO (08:44)
[2022-12-28] MEDS: FLUoxetine HCl 10 MG CAPSULE 30 MG PO (08:44)
[2022-12-28] MEDS: Ascorbic Acid 500 MG TABLET PO (08:44)
[2022-12-28] MEDS: Gabapentin 100 MG CAPSULE PO (08:44)
[2022-12-28] MEDS: methADONE HCl 20 MG/2 ML ORAL.CONC 128 MG PO (08:46)
[2022-12-28 08:50] VITALS: BP 131/80; PULSE 77; RESP 16; TEMP 36.6; O2SAT 99
[2022-12-28] MEDS: Sennosides/Docusate Sodium TABLET 1 TAB PO (08:50)
[2022-12-28] MEDS: Acetaminophen 325 MG TABLET 650 MG PO ×2 (08:50→20:24)
--- NOTE | 2022-12-28 10:19 | PC.NURSE ---
Kathy has right lower quadrant pain 02/12 - curled over - taking tylenol - has an appendix and no fever - not close to menses - doesn't feel like menstrual cramps has not had a bm since tuesday - taking senna but refusing MOM Dr Garcia informed today at 852am by tiger text. No new orders.
[2022-12-28] MEDS: LORazepam 1 MG TABLET PO ×2 (11:05→16:21)
--- NOTE | 2022-12-28 13:50 | HO.PSYCHPN ---
Subjective Subjective Date of Service: 12/28/22 Reason For Visit: Mood disorder Interim History: pt reports she is having a bad day today, unable to link her mood to any environmental stimuli or stressors. states she was overly sedated by clonidine 0.05 yesterday afternoon. was also only agreeable to increase prozac to 30 mg today rather than 40 mg. clonidine DC'ed. pt willing to try a slightly higher dose of neurontin today, 200 TID rather than 100 TID, for her anxiety. in addition, reported poor sleep with nightmares. R/B of prazosin discussed, including MONAE, sedation, hypotension, edema. pt agrees to trial of prazosin at HS, to start at 1 mg tonight. Mental Status Exam Mental Status Exam Narrative: calm, cooperative. adequately dressed and groomed. no PMA/PMR. speech nml rate, decr amount, loudness, tone. nml latency. thoughts linear and logical. affect constricted, normo-intense, non-labile. mood depressed. no SI/HI/AVH expressed. Diagnostics Vital Signs (24Hr): Vital Signs - 24 hr 12/27/22 14:33 12/27/22 20:45 12/28/22 08:50 Temperature 98.2 F 97.8 F Pulse Rate 66 70 77 Respiratory Rate 16 16 Blood Pressure 123/78 118/73 131/80 Pulse Oximetry 99 99 Oxygen Delivery Method Room Air Room Air BMI result Body Mass Index 25.2 Labs 12/25/22 22:42 12/27/22 07:49 Labs: Laboratory Results - last 48 hr 12/27/22 07:49 Sodium 140 Potassium 4.9 D Chloride 109 H Carbon Dioxide 23 Anion Gap 13 BUN 20 H Creatinine 0.85 Estim Creat Clear Calc 66.9 Estimated GFR > 60 Fasting Glucose 89 Calcium 9.1 Total Bilirubin 0.3 AST 15 ALT 12 Alkaline Phosphatase 64 Total Protein 7.5 Albumin 4.0 Triglycerides 61 Cholesterol 208 LDL Cholesterol, Calc 139 HDL Cholesterol 57 Medications Medications Current Medications Acetaminophen (Acetaminophen 325 Mg Tablet) 650 mg PO Q6H PRN PRN Reason: Headache/Pain Mild Scale (1-3) Last Admin: 12/28/22 08:50 Dose: 650 mg Al Hydroxide/Mg Hydroxide (Magnesium Hydrox/Alum Hydrox 30 Ml Oral.Susp) 30 ml PO Q6H PRN PRN Reason: Heartburn/Nausea Ascorbic Acid (Ascorbic Acid 500 Mg Tablet) 500 mg PO DAILY [facility] Last Admin: 12/28/22 08:44 Dose: 500 mg Ferrous Sulfate (Ferrous Sulfate 324 Mg Tablet.Dr) 324 mg PO DAILY [facility] Last Admin: 12/28/22 08:44 Dose: 324 mg Fluoxetine HCl (Fluoxetine Hcl 10 Mg Capsule) 30 mg PO DAILY [facility] Last Admin: 12/28/22 08:44 Dose: 30 mg Gabapentin (Gabapentin 100 Mg Capsule) 200 mg PO TID [facility] Lorazepam (Lorazepam 1 Mg Tablet) 1 mg PO BID PRN PRN Reason: severe anxiety Last Admin: 12/28/22 11:05 Dose: 1 mg Magnesium Hydroxide (Milk Of Magnesia 30 Ml Oral.Susp) 30 ml PO DAILY PRN PRN Reason: Constipation Methadone HCl (Methadone Hcl 20 Mg/2 Ml Oral.Conc) 128 mg PO DAILY [facility] Last Admin: 12/28/22 08:46 Dose: 128 mg Prazosin HCl (Prazosin Hcl 1 Mg Capsule) 1 mg PO BEDTIME [facility]; Protocol Senna/Docusate Sodium (Sennosides/Docusate Sodium Tablet) 1 tab PO DAILY PRN PRN Reason: Constipation Last Admin: 12/28/22 08:50 Dose: 1 tab Sumatriptan Succinate (Sumatriptan Succinate 50 Mg Tablet) 50 mg PO DAILY PRN PRN Reason: migraine headache Zolpidem Tartrate (Zolpidem Tartrate 5 Mg Tablet) 10 mg PO BEDTIME PRN PRN Reason: insomnia Last Admin: 12/27/22 20:51 Dose: 10 mg Allergies Allergies Allergy/AdvReac Type Severity Reaction Status Date / Time diphenhydramine Allergy Severe RASH Verified 12/26/22 21:20 [From BENADRYL] trazodone [TRAZODONE] AdvReac Severe DYSTONIC Verified 12/26/22 21:20 risperidone [Risperdal] AdvReac Unknown Dystonia Verified 12/26/22 21:20 Assessment & Plan Assessment & Plan (1) PTSD (post-traumatic stress disorder): Status: Acute Code(s): F43.10 - Post-traumatic stress disorder, unspecified (2) MDD (major depressive disorder), recurrent episode, severe: Status: Acute Code(s): F33.2 - Major depressive disorder, recurrent severe without psychotic features (3) Cocaine use disorder: Status: Acute Code(s): F14.10 - Cocaine abuse, uncomplicated (4) Opioid use disorder: Status: Acute Code(s): F11.90 - Opioid use, unspecified, uncomplicated Plan 12/27: increase prozac to 30 mg daily. increase ambien back to outpt dosing of 10 mg QHS. start clonidine 0.05 mg TID. D/C klonopin. start ativan 1 mg BID PRN. 12/28: DC clonidine as sedating. increase neurontin to 200 TID for anxiety. start prazosin 1 mg at HS for nightmares and insomnia. remains feeling depressed and anxious. disrupted sleep last NOC 2/2 nightmares. Reason for continued inpatient stay Substantial Risk for: harm to self, inability to function and rapid decompensation Time Spent With Patient Time: Total time managing care of this patient today __25__ minutes.
[2022-12-28] MEDS: Gabapentin 100 MG CAPSULE 200 MG PO ×2 (15:03→20:23)
[2022-12-28 20:05] VITALS: BP 119/78; PULSE 65; RESP 16; TEMP 36.6; O2SAT 99
[2022-12-28] MEDS: Prazosin HCL 1 MG CAPSULE PO (20:23)
[2022-12-28] MEDS: Zolpidem Tartrate 5 MG TABLET 10 MG PO (20:23)
[2022-12-29 08:42] VITALS: BP 133/78; PULSE 104; TEMP 37; O2SAT 99
[2022-12-29] MEDS: methADONE HCl 20 MG/2 ML ORAL.CONC 128 MG PO (08:50)
[2022-12-29] MEDS: FLUoxetine HCl 10 MG CAPSULE 30 MG PO (08:51)
[2022-12-29] MEDS: Gabapentin 100 MG CAPSULE 200 MG PO ×3 (08:51→20:10)
[2022-12-29] MEDS: Ferrous Sulfate 324 MG TABLET.DR PO (08:52)
[2022-12-29] MEDS: Ascorbic Acid 500 MG TABLET PO (08:52)
[2022-12-29] MEDS: LORazepam 1 MG TABLET PO ×2 (10:29→18:29)
[2022-12-29] MEDS: Acetaminophen 325 MG TABLET 650 MG PO ×2 (10:45→20:10)
[2022-12-29] MEDS: Sennosides/Docusate Sodium TABLET 1 TAB PO (11:22)
--- NOTE | 2022-12-29 15:01 | P.PNPSI_ITS ---
Subjective Subjective Date of Service: 12/29/22 Reason For Visit: Mood disorder Interim History: pt found walking the [place] after having met with SW and being informed of DC tomorrow. pt tearful, stating she does not feel safe leaving yet, does not feel ready. says she is not having good thoughts. in light of this and ongoing psychopharm mgmt, agrees to plan for tuesday discharge - pt has tuesday PHP intake scheduled. pt is relieved. slept without nightmares last night, but di srupted sleep. agrees to increase prazosin to 2 mg at HS. per staff, no BM for 5 days. found out 17 yo daughter is . dreaming about demons chasing her. on the phone, crying on the phone. took senna yesterday. slept better last night, no nightmares. Mental Status Exam Mental Status Exam Narrative: calm, cooperative. adequately dressed and groomed. no PMA/PMR. speech nml rate, amount, loudness, tone. nml latency. thoughts linear and logical. affect constricted, normo-intense, non-labile. mood depressed. no SI/HI/AVH expressed. Diagnostics Vital Signs (24Hr): Vital Signs - 24 hr 12/28/22 20:05 12/29/22 08:42 Temperature 97.8 F 98.6 F Pulse Rate 65 104 H Respiratory Rate 16 Blood Pressure 119/78 133/78 Pulse Oximetry 99 99 Oxygen Delivery Method Room Air Room Air BMI result Body Mass Index 25.2 Labs 12/25/22 22:42 12/27/22 07:49 Medications Medications Current Medications Acetaminophen (Acetaminophen 325 Mg Tablet) 650 mg PO Q6H PRN PRN Reason: Headache/Pain Mild Scale (1-3) Last Admin: 12/29/22 10:45 Dose: 650 mg Al Hydroxide/Mg Hydroxide (Magnesium Hydrox/Alum Hydrox 30 Ml Oral.Susp) 30 ml PO Q6H PRN PRN Reason: Heartburn/Nausea Ascorbic Acid (Ascorbic Acid 500 Mg Tablet) 500 mg PO DAILY [facility] Last Admin: 12/29/22 08:52 Dose: 500 mg Ferrous Sulfate (Ferrous Sulfate 324 Mg Tablet.) 324 mg PO DAILY [facility] Last Admin: 12/29/22 08:52 Dose: 324 mg Fluoxetine HCl (Fluoxetine Hcl 10 Mg Capsule) 30 mg PO DAILY [facility] Last Admin: 12/29/22 08:51 Dose: 30 mg Gabapentin (Gabapentin 100 Mg Capsule) 200 mg PO TID [facility] Last Admin: 12/29/22 08:51 Dose: 200 mg Lorazepam (Lorazepam 1 Mg Tablet) 1 mg PO BID PRN PRN Reason: severe anxiety Last Admin: 12/29/22 10:29 Dose: 1 mg Magnesium Hydroxide (Milk Of Magnesia 30 Ml Oral.Susp) 30 ml PO DAILY PRN PRN Reason: Constipation Methadone HCl (Methadone Hcl 20 Mg/2 Ml Oral.Conc) 128 mg PO DAILY [facility] Last Admin: 12/29/22 08:50 Dose: 128 mg Prazosin HCl (Prazosin Hcl 1 Mg Capsule) 2 mg PO BEDTIME [facility]; Protocol Senna/Docusate Sodium (Sennosides/Docusate Sodium Tablet) 1 tab PO DAILY PRN PRN Reason: Constipation Last Admin: 12/29/22 11:22 Dose: 1 tab Sumatriptan Succinate (Sumatriptan Succinate 50 Mg Tablet) 50 mg PO DAILY PRN PRN Reason: migraine headache Zolpidem Tartrate (Zolpidem Tartrate 5 Mg Tablet) 10 mg PO BEDTIME PRN PRN Reason: insomnia Last Admin: 12/28/22 20:23 Dose: 10 mg Allergies Allergies Allergy/AdvReac Type Severity Reaction Status Date / Time diphenhydramine Allergy Severe RASH Verified 12/26/22 21:20 [From BENADRYL] trazodone [TRAZODONE] AdvReac Severe DYSTONIC Verified 12/26/22 21:20 risperidone [Risperdal] AdvReac Unknown Dystonia Verified 12/26/22 21:20 Assessment & Plan Assessment & Plan (1) PTSD (post-traumatic stress disorder): Status: Acute Code(s): F43.10 - Post-traumatic stress disorder, unspecified (2) MDD (major depressive disorder), recurrent episode, severe: Status: Acute Code(s): F33.2 - Major depressive disorder, recurrent severe without psychotic features (3) Cocaine use disorder: Status: Acute Code(s): F14.10 - Cocaine abuse, uncomplicated (4) Opioid use disorder: Status: Acute Code(s): F11.90 - Opioid use, unspecified, uncomplicated Plan 12/27: increase prozac to 30 mg daily. increase ambien back to outpt dosing of 10 mg QHS. start clonidine 0.05 mg TID. D/C klonopin. start ativan 1 mg BID PRN. 12/28: DC clonidine as sedating. increase neurontin to 200 TID for anxiety. start prazosin 1 mg at HS for nightmares and insomnia. remains feeling depressed and anxious. disrupted sleep last NOC 2/2 nightmares. 12/29: no nightmares but MNA. increase prazosin to 2 mg QHS. T/C increase in gabapentin during the day for anxiety. planning for tuesday discharge with tuesday PHP intake. Reason for continued inpatient stay Substantial Risk for: harm to self, inability to function and rapid decompensation Time Spent With Patient Time: Total time managing care of this patient today __35__ minutes.
[2022-12-29] MEDS: Prazosin HCL 1 MG CAPSULE 2 MG PO (20:10)
[2022-12-29] MEDS: Zolpidem Tartrate 5 MG TABLET 10 MG PO (20:10)
[2022-12-29] MEDS: Milk of Magnesia 30 ML ORAL.SUSP PO (20:10)
[2022-12-29 20:14] VITALS: BP 147/85; PULSE 72; RESP 16; TEMP 36.6; O2SAT 98
[2022-12-30 07:54] VITALS: BP 126/73; PULSE 94; RESP 18; TEMP 36.6; O2SAT 100
[2022-12-30] MEDS: FLUoxetine HCl 10 MG CAPSULE 30 MG PO (08:21)
[2022-12-30] MEDS: Ascorbic Acid 500 MG TABLET PO (08:21)
[2022-12-30] MEDS: Acetaminophen 325 MG TABLET 650 MG PO ×2 (08:21→20:08)
[2022-12-30] MEDS: Gabapentin 100 MG CAPSULE 200 MG PO ×3 (08:21→20:08)
[2022-12-30] MEDS: Ferrous Sulfate 324 MG TABLET.DR PO (08:21)
[2022-12-30] MEDS: methADONE HCl 20 MG/2 ML ORAL.CONC 128 MG PO (08:24)
[2022-12-30] MEDS: LORazepam 1 MG TABLET PO (11:36)
[2022-12-30 11:37] VITALS: BP 122/83; PULSE 126; RESP 18; TEMP 36.7; O2SAT 98
--- NOTE | 2022-12-30 15:33 | HO.PSYCHPN ---
Subjective Subjective Date of Service: 12/30/22 Reason For Visit: Mood disorder Interim History: pt reports she slept well, had a strange dream. severe anxiety this morning which was helped by ativan 1mg. agreeable to increaser prazosin at HS to 3 mg. per staff, eating. sleeping difficulty. sad, doesn't know why. Mental Status Exam Mental Status Exam Narrative: calm, cooperative. adequately dressed and groomed. no PMA/PMR. speech nml rate, amount, loudness. flattened tone. nml latency. thoughts linear and logical. affect constricted, normo-intense, non-labile. mood depressed. no SI/HI/AVH expressed. Diagnostics Vital Signs (24Hr): Vital Signs - 24 hr 12/29/22 20:14 12/30/22 07:54 12/30/22 11:37 Temperature 97.8 F 97.9 F 98.1 F Pulse Rate 72 94 126 H Respiratory Rate 16 18 18 Blood Pressure 147/85 H 126/73 122/83 Pulse Oximetry 98 100 98 Oxygen Delivery Method Room Air Room Air Room Air BMI result Body Mass Index 25.2 Labs 12/25/22 22:42 12/27/22 07:49 Medications Medications Current Medications Acetaminophen (Acetaminophen 325 Mg Tablet) 650 mg PO Q6H PRN PRN Reason: Headache/Pain Mild Scale (1-3) Last Admin: 12/30/22 08:21 Dose: 650 mg Al Hydroxide/Mg Hydroxide (Magnesium Hydrox/Alum Hydrox 30 Ml Oral.Susp) 30 ml PO Q6H PRN PRN Reason: Heartburn/Nausea Ascorbic Acid (Ascorbic Acid 500 Mg Tablet) 500 mg PO DAILY [facility] Last Admin: 12/30/22 08:21 Dose: 500 mg Ferrous Sulfate (Ferrous Sulfate 324 Mg Tablet.) 324 mg PO DAILY [facility] Last Admin: 12/30/22 08:21 Dose: 324 mg Fluoxetine HCl (Fluoxetine Hcl 10 Mg Capsule) 30 mg PO DAILY [facility] Last Admin: 12/30/22 08:21 Dose: 30 mg Gabapentin (Gabapentin 100 Mg Capsule) 200 mg PO TID [facility] Last Admin: 12/30/22 14:12 Dose: 200 mg Lorazepam (Lorazepam 1 Mg Tablet) 1 mg PO BID PRN PRN Reason: severe anxiety Last Admin: 12/30/22 11:36 Dose: 1 mg Magnesium Hydroxide (Milk Of Magnesia 30 Ml Oral.Susp) 30 ml PO DAILY PRN PRN Reason: Constipation Last Admin: 12/29/22 20:10 Dose: 30 ml Methadone HCl (Methadone Hcl 20 Mg/2 Ml Oral.Conc) 128 mg PO DAILY [facility] Last Admin: 12/30/22 08:24 Dose: 128 mg Prazosin HCl (Prazosin Hcl 1 Mg Capsule) 3 mg PO BEDTIME [facility]; Protocol Senna/Docusate Sodium (Sennosides/Docusate Sodium Tablet) 1 tab PO DAILY PRN PRN Reason: Constipation Last Admin: 12/29/22 11:22 Dose: 1 tab Sumatriptan Succinate (Sumatriptan Succinate 50 Mg Tablet) 50 mg PO DAILY PRN PRN Reason: migraine headache Zolpidem Tartrate (Zolpidem Tartrate 5 Mg Tablet) 10 mg PO BEDTIME PRN PRN Reason: insomnia Last Admin: 12/29/22 20:10 Dose: 10 mg Allergies Allergies Allergy/AdvReac Type Severity Reaction Status Date / Time diphenhydramine Allergy Severe RASH Verified 12/26/22 21:20 [From BENADRYL] trazodone [TRAZODONE] AdvReac Severe DYSTONIC Verified 12/26/22 21:20 risperidone [Risperdal] AdvReac Unknown Dystonia Verified 12/26/22 21:20 Assessment & Plan Assessment & Plan (1) PTSD (post-traumatic stress disorder): Status: Acute Code(s): F43.10 - Post-traumatic stress disorder, unspecified (2) MDD (major depressive disorder), recurrent episode, severe: Status: Acute Code(s): F33.2 - Major depressive disorder, recurrent severe without psychotic features (3) Cocaine use disorder: Status: Acute Code(s): F14.10 - Cocaine abuse, uncomplicated (4) Opioid use disorder: Status: Acute Code(s): F11.90 - Opioid use, unspecified, uncomplicated Plan 12/27: increase prozac to 30 mg daily. increase ambien back to outpt dosing of 10 mg QHS. start clonidine 0.05 mg TID. D/C klonopin. start ativan 1 mg BID PRN. 12/28: DC clonidine as sedating. increase neurontin to 200 TID for anxiety. start prazosin 1 mg at HS for nightmares and insomnia. remains feeling depressed and anxious. disrupted sleep last NOC 10/07 nightmares. 12/29: no nightmares but MNA. increase prazosin to 2 mg QHS. T/C increase in gabapentin during the day for anxiety. planning for tuesday discharge with tuesday PHP intake. 12/30: increase HS prazosin to 3 mg. continue current regimen otherwise. Reason for continued inpatient stay Substantial Risk for: harm to self, inability to function and rapid decompensation Time Spent With Patient Time: Total time managing care of this patient today __25__ minutes.
[2022-12-30 19:54] VITALS: BP 124/76; PULSE 77; RESP 16; TEMP 36.6; O2SAT 100
[2022-12-30] MEDS: Zolpidem Tartrate 5 MG TABLET 10 MG PO (20:08)
[2022-12-30] MEDS: Prazosin HCL 1 MG CAPSULE 3 MG PO (20:09)
[2022-12-31] MEDS: Acetaminophen 325 MG TABLET 650 MG PO ×3 (02:20→15:49)
[2022-12-31] MEDS: LORazepam 1 MG TABLET PO ×2 (02:20→15:11)
[2022-12-31 08:00] VITALS: BP 111/75; PULSE 111; TEMP 36.6; O2SAT 98
[2022-12-31] MEDS: FLUoxetine HCl 10 MG CAPSULE 30 MG PO (08:18)
[2022-12-31] MEDS: Ascorbic Acid 500 MG TABLET PO (08:19)
[2022-12-31] MEDS: Ferrous Sulfate 324 MG TABLET.DR PO (08:19)
[2022-12-31] MEDS: Gabapentin 100 MG CAPSULE 200 MG PO ×3 (08:19→21:00)
[2022-12-31] MEDS: methADONE HCl 20 MG/2 ML ORAL.CONC 128 MG PO (08:20)
[2022-12-31] MEDS: Sennosides/Docusate Sodium TABLET 1 TAB PO (08:33)
--- NOTE | 2022-12-31 16:59 | HO.PSYCHPN ---
Subjective Subjective Date of Service: 12/31/22 Reason For Visit: Mood disorder Interim History: calm, cooperative. some concerns about vivid dreams and sleeping more poorly during escalation of prazosin. advised to be patient and continue current mgmt for now, with which pt agrees. planning for tuesday discharge. per staff, pt slept fair. Mental Status Exam Mental Status Exam Narrative: calm, cooperative. adequately dressed and groomed. no PMA/PMR. speech nml rate, amount, loudness. flattened tone. nml latency. thoughts linear and logical. affect constricted, normo-intense, non-labile. mood depressed. no SI/HI/AVH expressed. Diagnostics Vital Signs (24Hr): Vital Signs - 24 hr 12/30/22 19:54 12/31/22 08:00 Temperature 97.9 F 97.9 F Pulse Rate 77 111 H Respiratory Rate 16 Blood Pressure 124/76 111/75 Pulse Oximetry 100 98 Oxygen Delivery Method Room Air Room Air BMI result Body Mass Index 25.2 Labs 12/25/22 22:42 12/27/22 07:49 Medications Medications Current Medications Acetaminophen (Acetaminophen 325 Mg Tablet) 650 mg PO Q6H PRN PRN Reason: Headache/Pain Mild Scale (1-3) Last Admin: 12/31/22 15:49 Dose: 650 mg Al Hydroxide/Mg Hydroxide (Magnesium Hydrox/Alum Hydrox 30 Ml Oral.Susp) 30 ml PO Q6H PRN PRN Reason: Heartburn/Nausea Ascorbic Acid (Ascorbic Acid 500 Mg Tablet) 500 mg PO DAILY [facility] Last Admin: 12/31/22 08:19 Dose: 500 mg Ferrous Sulfate (Ferrous Sulfate 324 Mg Tablet.) 324 mg PO DAILY [facility] Last Admin: 12/31/22 08:19 Dose: 324 mg Fluoxetine HCl (Fluoxetine Hcl 10 Mg Capsule) 30 mg PO DAILY [facility] Last Admin: 12/31/22 08:18 Dose: 30 mg Gabapentin (Gabapentin 100 Mg Capsule) 200 mg PO TID [facility] Last Admin: 12/31/22 14:35 Dose: 200 mg Lorazepam (Lorazepam 1 Mg Tablet) 1 mg PO BID PRN PRN Reason: severe anxiety Last Admin: 12/31/22 15:11 Dose: 1 mg Magnesium Hydroxide (Milk Of Magnesia 30 Ml Oral.Susp) 30 ml PO DAILY PRN PRN Reason: Constipation Last Admin: 12/29/22 20:10 Dose: 30 ml Methadone HCl (Methadone Hcl 20 Mg/2 Ml Oral.Conc) 128 mg PO DAILY [facility] Last Admin: 12/31/22 08:20 Dose: 128 mg Prazosin HCl (Prazosin Hcl 1 Mg Capsule) 3 mg PO BEDTIME [facility]; Protocol Last Admin: 12/30/22 20:09 Dose: 3 mg Senna/Docusate Sodium (Sennosides/Docusate Sodium Tablet) 1 tab PO DAILY PRN PRN Reason: Constipation Last Admin: 12/31/22 08:33 Dose: 1 tab Sumatriptan Succinate (Sumatriptan Succinate 50 Mg Tablet) 50 mg PO DAILY PRN PRN Reason: migraine headache Zolpidem Tartrate (Zolpidem Tartrate 5 Mg Tablet) 10 mg PO BEDTIME PRN PRN Reason: insomnia Last Admin: 12/30/22 20:08 Dose: 10 mg Allergies Allergies Allergy/AdvReac Type Severity Reaction Status Date / Time diphenhydramine Allergy Severe RASH Verified 12/26/22 21:20 [From BENADRYL] trazodone [TRAZODONE] AdvReac Severe DYSTONIC Verified 12/26/22 21:20 risperidone [Risperdal] AdvReac Unknown Dystonia Verified 12/26/22 21:20 Assessment & Plan Assessment & Plan (1) PTSD (post-traumatic stress disorder): Status: Acute Code(s): F43.10 - Post-traumatic stress disorder, unspecified (2) MDD (major depressive disorder), recurrent episode, severe: Status: Acute Code(s): F33.2 - Major depressive disorder, recurrent severe without psychotic features (3) Cocaine use disorder: Status: Acute Code(s): F14.10 - Cocaine abuse, uncomplicated (4) Opioid use disorder: Status: Acute Code(s): F11.90 - Opioid use, unspecified, uncomplicated Plan 12/27: increase prozac to 30 mg daily. increase ambien back to outpt dosing of 10 mg QHS. start clonidine 0.05 mg TID. D/C klonopin. start ativan 1 mg BID PRN. 12/28: DC clonidine as sedating. increase neurontin to 200 TID for anxiety. start prazosin 1 mg at HS for nightmares and insomnia. remains feeling depressed and anxious. disrupted sleep last NOC 2/2 nightmares. 12/29: no nightmares but MNA. increase prazosin to 2 mg QHS. T/C increase in gabapentin during the day for anxiety. planning for tuesday discharge with tuesday PHP intake. 12/30: increase HS prazosin to 3 mg. continue current regimen otherwise. 12/31: continue current mgmt. stable. Reason for continued inpatient stay Substantial Risk for: inability to function and rapid decompensation Time Spent With Patient Time: Total time managing care of this patient today ____ minutes.
[2022-12-31 20:40] VITALS: BP 115/69; PULSE 71; RESP 18; TEMP 36.4; O2SAT 97
[2022-12-31] MEDS: Prazosin HCL 1 MG CAPSULE 3 MG PO (21:01)
[2022-12-31] MEDS: Zolpidem Tartrate 5 MG TABLET 10 MG PO (21:01)
[2023-01-01] MEDS: LORazepam 1 MG TABLET PO ×2 (02:18→18:31)
[2023-01-01] MEDS: Acetaminophen 325 MG TABLET 650 MG PO ×2 (02:19→17:57)
--- NOTE | 2023-01-01 07:01 | PC.NURSE ---
SHASHI c/o vivid dreams stating he thinks its the Ambien but I've taken that for years. I think its the increase in the Prazosin. there not nightmares just really weird and really vivid she is pleasant and cooperative upon appproach. she denies SI/HI/AVH but endorses D&A 03/14,no behavioral concerns, continue Plan of Care
[2023-01-01 08:45] VITALS: BP 128/79; PULSE 90; RESP 16; TEMP 37.1; O2SAT 100
[2023-01-01] MEDS: Ascorbic Acid 500 MG TABLET PO (08:57)
[2023-01-01] MEDS: FLUoxetine HCl 10 MG CAPSULE 30 MG PO (08:57)
[2023-01-01] MEDS: Gabapentin 100 MG CAPSULE 200 MG PO ×3 (08:57→20:48)
[2023-01-01] MEDS: Ferrous Sulfate 324 MG TABLET.DR PO (08:57)
[2023-01-01] MEDS: methADONE HCl 20 MG/2 ML ORAL.CONC 128 MG PO (08:59)
[2023-01-01] MEDS: Magnesium Hydrox/Alum Hydrox 30 ML ORAL.SUSP PO (10:10)
--- NOTE | 2023-01-01 17:00 | HO.PSYCHPN ---
Subjective Subjective Date of Service: 01/01/23 Reason For Visit: Mood disorder Interim History: calm, cooperative. states she had strange dreams last night again and asks to have prazosin dosing decreased, which is accommodated to 2 mg tonight. sad, anxious. no other complaints or requests. per staff, c/o vivid dreams last NOC. Mental Status Exam Mental Status Exam Narrative: calm, cooperative. adequately dressed and groomed. no PMA/PMR. speech nml rate, amount, loudness. flattened tone. nml latency. thoughts linear and logical. affect constricted, normo-intense, non-labile. mood sad and anxious. no SI/HI/AVH expressed. Diagnostics Vital Signs (24Hr): Vital Signs - 24 hr 12/31/22 20:40 01/01/23 08:45 Temperature 97.6 F 98.8 F Pulse Rate 71 90 Respiratory Rate 18 16 Blood Pressure 115/69 128/79 Pulse Oximetry 97 100 Oxygen Delivery Method Room Air Room Air BMI result Body Mass Index 25.2 Labs 12/25/22 22:42 12/27/22 07:49 Medications Medications Current Medications Acetaminophen (Acetaminophen 325 Mg Tablet) 650 mg PO Q6H PRN PRN Reason: Headache/Pain Mild Scale (1-3) Last Admin: 01/01/23 02:19 Dose: 650 mg Al Hydroxide/Mg Hydroxide (Magnesium Hydrox/Alum Hydrox 30 Ml Oral.Susp) 30 ml PO Q6H PRN PRN Reason: Heartburn/Nausea Last Admin: 01/01/23 10:10 Dose: 30 ml Ascorbic Acid (Ascorbic Acid 500 Mg Tablet) 500 mg PO DAILY [facility] Last Admin: 01/01/23 08:57 Dose: 500 mg Ferrous Sulfate (Ferrous Sulfate 324 Mg Tablet.Dr) 324 mg PO DAILY [facility] Last Admin: 01/01/23 08:57 Dose: 324 mg Fluoxetine HCl (Fluoxetine Hcl 10 Mg Capsule) 30 mg PO DAILY [facility] Last Admin: 01/01/23 08:57 Dose: 30 mg Gabapentin (Gabapentin 100 Mg Capsule) 200 mg PO TID [facility] Last Admin: 01/01/23 14:49 Dose: 200 mg Magnesium Hydroxide (Milk Of Magnesia 30 Ml Oral.Susp) 30 ml PO DAILY PRN PRN Reason: Constipation Last Admin: 12/29/22 20:10 Dose: 30 ml Methadone HCl (Methadone Hcl 20 Mg/2 Ml Oral.Conc) 128 mg PO DAILY [facility] Last Admin: 01/01/23 08:59 Dose: 128 mg Prazosin HCl (Prazosin Hcl 1 Mg Capsule) 2 mg PO BEDTIME [facility]; Protocol Senna/Docusate Sodium (Sennosides/Docusate Sodium Tablet) 1 tab PO DAILY PRN PRN Reason: Constipation Last Admin: 12/31/22 08:33 Dose: 1 tab Sumatriptan Succinate (Sumatriptan Succinate 50 Mg Tablet) 50 mg PO DAILY PRN PRN Reason: migraine headache Allergies Allergies Allergy/AdvReac Type Severity Reaction Status Date / Time diphenhydramine Allergy Severe RASH Verified 12/26/22 21:20 [From BENADRYL] trazodone [TRAZODONE] AdvReac Severe DYSTONIC Verified 12/26/22 21:20 risperidone [Risperdal] AdvReac Unknown Dystonia Verified 12/26/22 21:20 Assessment & Plan Assessment & Plan (1) PTSD (post-traumatic stress disorder): Status: Acute Code(s): F43.10 - Post-traumatic stress disorder, unspecified (2) MDD (major depressive disorder), recurrent episode, severe: Status: Acute Code(s): F33.2 - Major depressive disorder, recurrent severe without psychotic features (3) Cocaine use disorder: Status: Acute Code(s): F14.10 - Cocaine abuse, uncomplicated (4) Opioid use disorder: Status: Acute Code(s): F11.90 - Opioid use, unspecified, uncomplicated Plan 12/27: increase prozac to 30 mg daily. increase ambien back to outpt dosing of 10 mg QHS. start clonidine 0.05 mg TID. D/C klonopin. start ativan 1 mg BID PRN. 12/28: DC clonidine as sedating. increase neurontin to 200 TID for anxiety. start prazosin 1 mg at HS for nightmares and insomnia. remains feeling depressed and anxious. disrupted sleep last NOC 2/2 nightmares. 12/29: no nightmares but MNA. increase prazosin to 2 mg QHS. T/C increase in gabapentin during the day for anxiety. planning for tuesday discharge with tuesday PHP intake. 12/30: increase HS prazosin to 3 mg. continue current regimen otherwise. 12/31: continue current mgmt. stable. 01/01: after consistent vivid unsettling dreams which pt attributes to prazosin, will lower dose to 2 mg tonight. otherwise continue current mgmt. Reason for continued inpatient stay Substantial Risk for: harm to self, inability to function and rapid decompensation Time Spent With Patient Time: Total time managing care of this patient today ____ minutes.
[2023-01-01 18:00] VITALS: BP 126/82; PULSE 90; RESP 16; TEMP 36.6; O2SAT 99
[2023-01-01] MEDS: Prazosin HCL 1 MG CAPSULE 2 MG PO (20:48)
[2023-01-01] MEDS: Zolpidem Tartrate 5 MG TABLET 10 MG PO (20:48)
[2023-01-02 08:03] VITALS: BP 127/79; PULSE 74; RESP 16; TEMP 36.6; O2SAT 100
[2023-01-02] MEDS: FLUoxetine HCl 10 MG CAPSULE 30 MG PO (08:14)
[2023-01-02] MEDS: Ascorbic Acid 500 MG TABLET PO (08:14)
[2023-01-02] MEDS: methADONE HCl 20 MG/2 ML ORAL.CONC 128 MG PO (08:15)
[2023-01-02] MEDS: Gabapentin 100 MG CAPSULE 200 MG PO (08:15)
[2023-01-02] MEDS: Ferrous Sulfate 324 MG TABLET.DR PO (08:15)
[2023-01-02] MEDS: Acetaminophen 325 MG TABLET 650 MG PO ×2 (08:15→20:32)
[2023-01-02] MEDS: Sennosides/Docusate Sodium TABLET 1 TAB PO (08:50)
[2023-01-02] MEDS: LORazepam 1 MG TABLET PO ×2 (10:18→16:43)
[2023-01-02] MEDS: Gabapentin 300 MG CAPSULE PO ×2 (15:24→20:33)
--- NOTE | 2023-01-02 17:01 | P.PNPSI_ITS ---
Subjective Subjective Date of Service: 01/02/23 Reason For Visit: Mood disorder Interim History: calm, cooperative. states her mood is more sad and anxious today, doesn't know why. discuss possible connection to discharge. still had vivid uncomfortable dreams last night, wants to reduce prazosin down to 1 mg tonight. agreeable to increase prozac to 40 mg, also increase gabapentin to 300 mg TID. per staff, may be spending time awake in her bed at night but staff marking her as sle eping. c/o vivid dreams. had ativan PRN this morning. Mental Status Exam Mental Status Exam Narrative: calm, cooperative. adequately dressed and groomed. no PMA/PMR. speech nml rate, amount, loudness. flattened tone. nml latency. thoughts linear and logical. affect constricted, normo-intense, non-labile. mood sad and anxious. no SI/HI/AVH expressed. Diagnostics Vital Signs (24Hr): Vital Signs - 24 hr 01/01/23 18:00 01/02/23 08:03 Temperature 97.8 F 97.8 F Pulse Rate 90 74 Respiratory Rate 16 16 Blood Pressure 126/82 127/79 Pulse Oximetry 99 100 Oxygen Delivery Method Room Air BMI result Body Mass Index 25.2 Labs 12/25/22 22:42 12/27/22 07:49 Medications Medications Current Medications Acetaminophen (Acetaminophen 325 Mg Tablet) 650 mg PO Q6H PRN PRN Reason: Headache/Pain Mild Scale (1-3) Last Admin: 01/02/23 08:15 Dose: 650 mg Al Hydroxide/Mg Hydroxide (Magnesium Hydrox/Alum Hydrox 30 Ml Oral.Susp) 30 ml PO Q6H PRN PRN Reason: Heartburn/Nausea Last Admin: 01/01/23 10:10 Dose: 30 ml Ascorbic Acid (Ascorbic Acid 500 Mg Tablet) 500 mg PO DAILY [facility] Last Admin: 01/02/23 08:14 Dose: 500 mg Ferrous Sulfate (Ferrous Sulfate 324 Mg Tablet.) 324 mg PO DAILY [facility] Last Admin: 01/02/23 08:15 Dose: 324 mg Fluoxetine HCl (Fluoxetine Hcl 20 Mg Capsule) 40 mg PO DAILY [facility] Gabapentin (Gabapentin 300 Mg Capsule) 300 mg PO TID [facility] Last Admin: 01/02/23 15:24 Dose: 300 mg Lorazepam (Lorazepam 1 Mg Tablet) 1 mg PO BID PRN PRN Reason: severe anxiety Last Admin: 01/02/23 16:43 Dose: 1 mg Magnesium Hydroxide (Milk Of Magnesia 30 Ml Oral.Susp) 30 ml PO DAILY PRN PRN Reason: Constipation Last Admin: 12/29/22 20:10 Dose: 30 ml Methadone HCl (Methadone Hcl 20 Mg/2 Ml Oral.Conc) 128 mg PO DAILY [facility] Last Admin: 01/02/23 08:15 Dose: 128 mg Prazosin HCl (Prazosin Hcl 1 Mg Capsule) 1 mg PO BEDTIME [facility]; Protocol Senna/Docusate Sodium (Sennosides/Docusate Sodium Tablet) 1 tab PO DAILY PRN PRN Reason: Constipation Last Admin: 01/02/23 08:50 Dose: 1 tab Sumatriptan Succinate (Sumatriptan Succinate 50 Mg Tablet) 50 mg PO DAILY PRN PRN Reason: migraine headache Zolpidem Tartrate (Zolpidem Tartrate 5 Mg Tablet) 10 mg PO BEDTIME PRN PRN Reason: Insomnia Last Admin: 01/01/23 20:48 Dose: 10 mg Allergies Allergies Allergy/AdvReac Type Severity Reaction Status Date / Time diphenhydramine Allergy Severe RASH Verified 12/26/22 21:20 [From BENADRYL] trazodone [TRAZODONE] AdvReac Severe DYSTONIC Verified 12/26/22 21:20 risperidone [Risperdal] AdvReac Unknown Dystonia Verified 12/26/22 21:20 Assessment & Plan Assessment & Plan (1) PTSD (post-traumatic stress disorder): Status: Acute Code(s): F43.10 - Post-traumatic stress disorder, unspecified (2) MDD (major depressive disorder), recurrent episode, severe: Status: Acute Code(s): F33.2 - Major depressive disorder, recurrent severe without psychotic features (3) Cocaine use disorder: Status: Acute Code(s): F14.10 - Cocaine abuse, uncomplicated (4) Opioid use disorder: Status: Acute Code(s): F11.90 - Opioid use, unspecified, uncomplicated Plan 12/27: increase prozac to 30 mg daily. increase ambien back to outpt dosing of 10 mg QHS. start clonidine 0.05 mg TID. D/C klonopin. start ativan 1 mg BID PRN. 4/25: DC clonidine as sedating. increase neurontin to 200 TID for anxiety. start prazosin 1 mg at HS for nightmares and insomnia. remains feeling depressed and anxious. disrupted sleep last NOC 2/ nightmares. 12/29: no nightmares but MNA. increase prazosin to 2 mg QHS. T/C increase in gabapentin during the day for anxiety. planning for tuesday discharge with tuesday PHP intake. 12/30: increase HS prazosin to 3 mg. continue current regimen otherwise. 12/31: continue current mgmt. stable. 01/01: after consistent vivid unsettling dreams which pt attributes to prazosin, will lower dose to 2 mg tonight. otherwise continue current mgmt. 01/02: continue prazosin tater to 1 mg tonight. increase prozac to 40 mg daily as of tomorrow. increase gabapentin dosing to 300 TID. planning for discharge tomorrow. Reason for continued inpatient stay Substantial Risk for: inability to function and rapid decompensation Time Spent With Patient Time: Total time managing care of this patient today ____ minutes.
[2023-01-02 20:30] VITALS: BP 162/77; PULSE 75; RESP 16; TEMP 37; O2SAT 98
[2023-01-02] MEDS: Zolpidem Tartrate 5 MG TABLET 10 MG PO (20:33)
[2023-01-02] MEDS: Prazosin HCL 1 MG CAPSULE PO (20:33)
[2023-01-03] MEDS: LORazepam 1 MG TABLET PO ×2 (04:13→10:27)
[2023-01-03] MEDS: Ascorbic Acid 500 MG TABLET PO (08:04)
[2023-01-03] MEDS: Ferrous Sulfate 324 MG TABLET.DR PO (08:05)
[2023-01-03] MEDS: Acetaminophen 325 MG TABLET 650 MG PO (08:05)
[2023-01-03] MEDS: Gabapentin 300 MG CAPSULE PO (08:05)
[2023-01-03] MEDS: methADONE HCl 20 MG/2 ML ORAL.CONC 128 MG PO (08:06)
[2023-01-03] MEDS: FLUoxetine HCl 20 MG CAPSULE 40 MG PO (08:10)
[2023-01-03] MEDS: Sennosides/Docusate Sodium TABLET 1 TAB PO (08:10)
[2023-01-03 08:19] VITALS: BP 115/81; PULSE 124; RESP 18; TEMP 36.9; O2SAT 98
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
== END 2023-01-03 12:28 | disposition home or self-care (01) | DRG 885 ==
LOC: HO.ED 12-26 21:33 → HO.PADLT16 12-26 21:34
PROVIDERS: Emergency Medicine; Admitting Provider Psychiatry & Neurology Psychiatry; Emergency Provider Emergency Medicine Emergency Medical Services; Visit Provider Psychiatry & Neurology Psychiatry
DX: F33.2 Major depressive disorder, recurrent severe without psychotic features (principal); R45.851 Suicidal ideations; F11.20 Opioid dependence, uncomplicated; F43.12 Post-traumatic stress disorder, chronic; F14.10 Cocaine abuse, uncomplicated; E03.9 Hypothyroidism, unspecified; Z20.822 Contact with and (suspected) exposure to COVID-19; Z88.8 Allergy status to other drugs, medicaments and biological substances; Z79.899 Other long term (current) drug therapy
CPT/HCPCS: 36415; 80053; 80061; 80307; 81025; 82077; 85025; 87635; 93005; 99285; S9485

== ENCOUNTER 2023-01-28 16:54 | Inpatient (IN) | payer OTHER, SELFPAY ==
[2023-01-28 17:01] VITALS: BP 143/91; PULSE 103; RESP 17; TEMP 36.3; O2SAT 99; BMI 24.4
[2023-01-28 17:48] LABS: MANUAL DIFF FLAG NO
[2023-01-28 17:58] LABS: Appearance Urine Clear; Color Urine Yellow; Glucose Urine UA Negative (Negative); Leukocyte Esterase Urine Negative (Negative); Nitrite Urine Negative (Negative); Specific Gravity - Urine >= 1.030 (1.005-1.025); Urine Blood Negative (Negative); Urine Ketones Trace mg/dL (Negative); Urine Protein Trace mg/dL (Neg-Trace)
[2023-01-28 18:01] LABS: Amphetamine Screen Urine Not Detected (Not Detect); Barbiturates, Urine Not Detected (Not Detect); Benzodiazepines Screen Urine Not Detected (Not Detect); Cannabinoid Screen Urine POSITIVE (Not Detect); Cocaine Screen Urine POSITIVE (Not Detect); Fentanyl, urine Not Detected (Not Detect); Opiate Screen Urine Not Detected (Not Detect); Phencyclidine Screen Urine Not Detected (Not Detect); UPreg QC Valid YES; Urine Pregnancy NEGATIVE (NEGATIVE)
--- NOTE | 2023-01-28 18:11 | ED.PSYCH ---
HPI - Psych General Chief Complaint: Psychiatric Symptoms Stated Complaint: Crisis Time Seen by Provider: 01/28/23 17:13 Source: patient Mode of arrival: ambulatory Limitations: no limitations History of Present Illness HPI Narrative: This is a 47-year-old female presenting to the emergency department for evaluation after suicidal ideation, command auditory hallucinations, depression, anxiety times few weeks worsening. Patient reports she was discharged from a psychiatric facility on 01/03/2023, and since then she has been cutting her wrist, thumb, size due to increasing depression. She tells me she is suicidal with plan to cut. Related Data Home Medications Medication Instructions Recorded Confirmed methadone 10 mg/mL oral concentrate 128 mg PO DAILY 12/12/22 12/26/22 ascorbic acid (vitamin C) 500 mg 500 mg PO DAILY 01/28/23 01/28/23 tablet (Vitamin C) clonidine HCl 0.1 mg tablet 0.05 mg PO TID PRN anxiety 01/28/23 01/28/23 fluoxetine 20 mg capsule 40 mg PO DAILY 01/28/23 01/28/23 lorazepam 1 mg tablet 1 mg PO BID PRN anxiety 01/28/23 01/28/23 prazosin 1 mg capsule 1 mg PO BEDTIME 01/28/23 01/28/23 sennosides 8.6 mg-docusate sodium 1 tab PO DAILY PRN constipation 01/28/23 01/28/23 50 mg tablet (Senexon-S) sumatriptan succinate 50 mg tablet 50 mg PO DAILY PRN migraine 01/28/23 01/28/23 zolpidem 10 mg tablet 10 mg PO BEDTIME PRN insomnia 01/28/23 01/28/23 Previous Rx's Medication Instructions Recorded gabapentin 300 mg capsule 300 mg PO TID 30 days #90 caps 01/03/23 ibuprofen 200 mg tablet 400 mg PO Q8H PRN Pain 30 days 01/03/23 #180 tabs ferrous sulfate 324 mg (65 mg 324 mg PO DAILY 90 days #90 tabs 01/12/23 iron) tablet,delayed release Allergies Allergy/AdvReac Type Severity Reaction Status Date / Time diphenhydramine Allergy Severe RASH Verified 12/26/22 21:20 [From BENADRYL] trazodone [TRAZODONE] AdvReac Severe DYSTONIC Verified 12/26/22 21:20 risperidone [Risperdal] AdvReac Unknown Dystonia Verified 12/26/22 21:20 Review of Systems Review of Systems: Constitutional : No Weight loss, No Fever, No Chills, No Fatigue, No Malaise ENT/Mouth : No sore throat, No Rhinorrhea Eyes: No Eye Pain, No Swelling, No Redness Cardiovascular : No Chest Pain, No SOB, No Dyspnea on Exertion, No Orthopnea, No Edema, No Palpitations Respiratory : No Cough, No Sputum, No Wheezing Gastrointestinal : No Nausea, No Vomiting, No Diarrhea, No Constipation, No abdominal Pain, No Hematochezia, No Melena Genitourinary : No Dysuria, No Urinary Frequency, No Hematuria, Musculoskeletal : No joint pain, No Myalgias, No Joint Swelling Skin : No Skin Lesions, No rash Neuro : No Weakness, No Numbness, No Dizziness, No Headache Psych : + Anxiety/Panic, + Depression, + SI All other systems reviewed and are negative Yes all other systems are reviewed and are negative PMFSH Past Medical History Attestation statement: The following information was validated with the patient. Source: old records reviewed and nursing notes reviewed Medical History Anemia Anxiety and depression GERD (gastroesophageal reflux disease) Hypothyroid Insomnia MDD (major depressive disorder), recurrent episode, severe Migraine Panic attacks Peptic ulcer disease Polysubstance abuse PTSD (post-traumatic stress disorder) Surgical History History of section Family History Family History Father COPD (chronic obstructive pulmonary disease) Lung cancer Mother No problems noted. Maternal Grandmother Esophageal cancer Maternal Grandfather Pancreatic cancer Paternal Grandmother Esophageal cancer Stomach cancer Maternal Aunt Breast cancer Social History Social History Household Members: Friend(s) Household Members Other:: room mate Housing: Apartment Do you presently have visiting nurse or other home services: No Alcohol intake: unknown Patient Tobacco Use Status: Never used Tobacco Tobacco use type: Cigarette e-Cigarette/Vaping Use: Never Used Second Hand Smoke Exposure: No Substance Use Type: Crack/Cocaine Advance Directives: No Advance Directives Information Provided: No service: No Current occupational status: employed Sexual orientation: Straight/Heterosexual Cognitive needs: No Hearing needs: No Vision needs: No Physical Exam Vital Signs: Vital Signs: Last Vital Signs Temp 97.4 F 01/28/23 17:01 Pulse 103 H 01/28/23 17:01 Resp 17 01/28/23 17:01 BP 143/91 H 01/28/23 17:01 Pulse Ox 99 01/28/23 17:01 O2 Del Method Room Air 01/28/23 17:01 BMI result Body Mass Index 24.4 vss Appearance: Alert.? Oriented X3.? No acute distress.? Head: Normocephalic, atraumatic, no step-offs or deformities Neck: Normal inspection.? Neck supple.? CVS: Normal heart rate and rhythm.? Pulses normal.? Respiratory: No respiratory distress.? Breath sounds normal.? Abdomen: Soft and nontender.? Skin: Skin warm and dry.? Normal skin color.? Normal skin turgor.? Extremities: No lower extremity edema.? No calf ttp. 5/5 strength to bilateral upper and lower extremities Neuro: Oriented X 3.? No motor deficit.? No sensory deficit. CN 2-12 intact Course Reevaluation(s) Reevaluation #1: CBC appears to be around patient's baseline. Chemistry with no acute findings. UA without infection. Cocaine, marijuana, salicylates, acetaminophen ethanol negative. Time: 19:04 Medications Administered Discontinued Medications Generic Name Dose Route Start Last Admin Trade Name Freq PRN Reason Stop Dose Admin Lorazepam 1 mg 01/28/23 18:28 01/28/23 18:57 Lorazepam 1 Mg Tablet PO 01/28/23 18:29 1 mg ONCE ONE Administration Medical Decision Making Medical Decision Making [facility] Narrative: 1899 47-year-old female presents with hallucinations, anxiety, depression and suicidal ideation. Physical exam benign Will rule out metabolic derangements although unlikely. Likely PTSD, major depression. The medical clearance evaluation by behavioral health team Differential Diagnosis Differential Diagnoses: The differential diagnosis associated with the presentation includes Will rule out metabolic derangements although unlikely. Likely PTSD, major depression. Admission/Observation Consideration of admission/observation: Escalation of care including admission/observation considered Lab Data [facility] Lab Attestation statement: I reviewed the patient's lab results. 01/28/23 17:40 01/28/23 17:40 Labs: Lab Results 01/28/23 01/28/23 01/28/23 Range/Units 17:40 17:40 17:41 WBC 6.4 (4.8-10.8) X10*3/uL RBC 4.03 L (4.20-5.50) X10*6/uL Hgb 9.7 L (12.0-16.0) g/dl Hct 32.9 L D (37.0-47.0) % MCV 81.6 (80.0-98.0) fL MCH 24.1 L (27.0-33.0) pg MCHC 29.5 L (31.0-35.0) g/dl RDW 21.2 H (11.0-16.0) % Plt Count 233 D (160-400) X10*3/uL MPV 11.3 (9.4-12.3) fL Immature Gran % (Auto) 0.2 (0.0-0.4) % Neut % (Auto) 64.8 (45-73) % Lymph % (Auto) 24.2 (20-40) % [place] % (Auto) 8.0 (2-11) % Eos % (Auto) 2.0 (0-4) % Baso % (Auto) 0.8 (0-2) % Lymph # (Auto) 1.5 (1.2-4.9) X10*3/uL [place] # (Auto) 0.5 (0.1-1.2) X10*3/uL Eos # (Auto) 0.1 (0.0-0.4) X10*3/uL Baso # (Auto) 0.1 (0.0-0.2) X10*3/uL Abs Immat Gran (auto) 0.01 (0.00-0.03) X10*3/uL Absolute Neuts (auto) 4.1 (2.0-8.3) x10*3/uL Absolute Nucleated RBC 0.000 (0.0-0.012) X10*3/uL Nucleated RBC % (auto) 0.0 (0.0-0.2) /100WBC Sodium 141 (135-145) mmol/L Potassium 4.3 (3.3-5.1) mmol/L Chloride 110 H (96-108) mmol/L Carbon Dioxide 24 (22-29) mmol/L Anion Gap 11 L (12-20) BUN 21 H (9-16) mg/dL Creatinine 0.79 (0.5-1.4) mg/dL Estim Creat Clear Calc 74.0 Estimated GFR > 60 Random Glucose 94 (60-115) mg/dL Calcium 9.3 (8.4-10.2) mg/dL Magnesium 2.2 (1.6-2.6) mg/dL Total Bilirubin 0.2 (0.0-1.0) mg/dL AST 15 (5-31) U/L ALT 11 (0-31) U/L Alkaline Phosphatase 60 (39-117) U/L Total Protein 8.0 (6.5-8.0) g/dL Albumin 4.2 (3.5-5.0) g/dL Urine Color Urine Appearance Urine pH (5.0-9.0) Ur Specific [place] (1.005-1.025) Urine Protein (Neg-Trace) mg/dL Urine Glucose (UA) (Negative) mg/dL Urine Ketones (Negative) mg/dL Urine Blood (Negative) Urine Nitrite (Negative) Ur Leukocyte Esterase (Negative) Urine RBC (0-2) /HPF Urine WBC (0-5) /HPF Ur Squamous Epith Cells (0-2) /HPF Urine Bacteria (None Seen) Hyaline Casts (0-2) /LPF Urine Test (NEGATIVE) Salicylates < 5.0 L (15-30) mg/dL Urine Opiates Screen Not Detected (Not Detect) Urine Fentanyl Screen Not Detected (Not Detect) Acetaminophen < 17 (<30) mcg/mL Ur Barbiturates Screen Not Detected (Not Detect) Ur Phencyclidine Scrn Not Detected (Not Detect) Ur Amphetamines Screen Not Detected (Not Detect) U Benzodiazepines Scrn Not Detected (Not Detect) Urine Cocaine Screen POSITIVE H (Not Detect) U Marijuana (THC) Screen POSITIVE H (Not Detect) Ethyl Alcohol < 10 mg/dL 01/28/23 01/28/23 Range/Units 17:41 17:41 WBC (4.8-10.8) X10*3/uL RBC (4.20-5.50) X10*6/uL Hgb (12.0-16.0) g/dl Hct (37.0-47.0) % MCV (80.0-98.0) fL MCH (27.0-33.0) pg MCHC (31.0-35.0) g/dl RDW (11.0-16.0) % Plt Count (160-400) X10*3/uL MPV (9.4-12.3) fL Immature Gran % (Auto) (0.0-0.4) % Neut % (Auto) (45-73) % Lymph % (Auto) (20-40) % [place] % (Auto) (2-11) % Eos % (Auto) (0-4) % Baso % (Auto) (0-2) % Lymph # (Auto) (1.2-4.9) X10*3/uL [place] # (Auto) (0.1-1.2) X10*3/uL Eos # (Auto) (0.0-0.4) X10*3/uL Baso # (Auto) (0.0-0.2) X10*3/uL Abs Immat Gran (auto) (0.00-0.03) X10*3/uL Absolute Neuts (auto) (2.0-8.3) x10*3/uL Absolute Nucleated RBC (0.0-0.012) X10*3/uL Nucleated RBC % (auto) (0.0-0.2) /100WBC Sodium (135-145) mmol/L Potassium (3.3-5.1) mmol/L Chloride (96-108) mmol/L Carbon Dioxide (22-29) mmol/L Anion Gap (12-20) BUN (9-16) mg/dL Creatinine (0.5-1.4) mg/dL Estim Creat Clear Calc Estimated GFR Random Glucose (60-115) mg/dL Calcium (8.4-10.2) mg/dL Magnesium (1.6-2.6) mg/dL Total Bilirubin (0.0-1.0) mg/dL AST (5-31) U/L ALT (0-31) U/L Alkaline Phosphatase (39-117) U/L Total Protein (6.5-8.0) g/dL Albumin (3.5-5.0) g/dL Urine Color Yellow Urine Appearance Clear Urine pH 6.0 (5.0-9.0) Ur Specific [place] >= 1.030 H (1.005-1.025) Urine Protein Trace (Neg-Trace) mg/dL Urine Glucose (UA) Negative (Negative) mg/dL Urine Ketones Trace (Negative) mg/dL Urine Blood Negative (Negative) Urine Nitrite Negative (Negative) Ur Leukocyte Esterase Negative (Negative) Urine RBC 6-10 H (0-2) /HPF Urine WBC 0-5 (0-5) /HPF Ur Squamous Epith Cells 3-5 (0-2) /HPF Urine Bacteria None Seen (None Seen) Hyaline Casts 0-2 (0-2) /LPF Urine Test NEGATIVE (NEGATIVE) Salicylates (15-30) mg/dL Urine Opiates Screen (Not Detect) Urine Fentanyl Screen (Not Detect) Acetaminophen (<30) mcg/mL Ur Barbiturates Screen (Not Detect) Ur Phencyclidine Scrn (Not Detect) Ur Amphetamines Screen (Not Detect) U Benzodiazepines Scrn (Not Detect) Urine Cocaine Screen (Not Detect) U Marijuana (THC) Screen (Not Detect) Ethyl Alcohol mg/dL Core Measures AMI core measures followed: Yes Measure exclusions: not indicated Critical Care Time Critical Care Time Critical Care Time: No Discharge Plan Discharge Clinical Impression: MDD (major depressive disorder), recurrent episode, severe, Acute psychosis Patient Disposition: Still a Patient Prescriptions: No Action ascorbic acid (vitamin C) [Vitamin C] 500 mg tablet 500 mg PO DAILY 90 Days Qty: 90 1RF ferrous sulfate 324 mg (65 mg iron) tablet,delayed release (DR/EC) 324 mg PO DAILY 90 Days Qty: 90 3RF fluoxetine 20 mg capsule 40 mg PO DAILY 90 Days Qty: 180 1RF prazosin 1 mg capsule 1 mg PO BEDTIME 90 Days Qty: 90 0RF Protocol: Hold for SBP< HOLD for SBP < : 90 sennosides-docusate sodium [Senna Plus] 8.6-50 mg tablet 1 tab PO DAILY PRN (Reason: Constipation) 90 Days Qty: 90 3RF zolpidem [Ambien] 10 mg tablet 10 mg PO BEDTIME PRN (Reason: insomnia) 7 Days Qty: 7 0RF lorazepam 1 mg tablet 1 mg PO BID PRN (Reason: anxiety) Qty: 60 0RF methadone 10 mg/mL Concentrate 128 mg PO DAILY Rx Instructions: Patient has 12/26/22 with her in the bottle sumatriptan succinate [Imitrex] 50 mg tablet 50 mg PO DAILY PRN (Reason: migraine headache) 30 Days Qty: 4 1RF gabapentin 300 mg Capsule 300 mg PO TID 30 Days Qty: 90 0RF ibuprofen 200 mg Tablet 400 mg PO Q8H PRN (Reason: Pain) 30 Days Qty: 180 0RF Interventions: [place]-Suicide Risk Severity Scale Last Done: 01/28/23 18:41
[2023-01-28 18:15] LABS: Acetaminophen LAB < 17 mcg/mL (<30); Alanine Aminotransferase 11 U/L (0-31); Albumin Level 4.2 g/dL (3.5-5.0); Alkaline Phosphatase 60 U/L (39-117); Anion Gap 11 (12-20); Aspartate Amino Transferase 15 U/L (5-31); Bilirubin Total 0.2 mg/dL (0.0-1.0); Blood Urea Nitrogen 21 mg/dL (9-16); Calcium 9.3 mg/dL (8.4-10.2); Carbon Dioxide 24 mmol/L (22-29); Chloride 110 mmol/L (96-108); Estimated Glomerular Filt Rate > 60; Ethanol < 10 mg/dL; Glucose Random 94 mg/dL (60-115); Magnesium 2.2 mg/dL (1.6-2.6); Potassium 4.3 mmol/L (3.3-5.1); Salicylate < 5.0 mg/dL (15-30); Sodium 141 mmol/L (135-145)
[2023-01-28 18:22] LABS: Bacteria Urine None Seen (None Seen); Hyaline Casts Urine 0-2 /LPF (0-2); WBC Urine 0-5 /HPF (0-5)
--- NOTE | 2023-01-28 18:23 | PC.NURSE ---
Pt C/O AH to SH cutting on BL upper Legs, R rib cage and R thumb.
[2023-01-28 18:35] LABS: Basophils Absolute Auto 0.1 X10*3/uL (0.0-0.2); Basophils Percent Auto 0.8 % (0-2); Eosinophils Absolute Auto 0.1 X10*3/uL (0.0-0.4); Hematocrit 32.9 % (37.0-47.0); Hemoglobin 9.7 g/dl (12.0-16.0); Imm Gran Abs Auto 0.01 X10*3/uL (0.00-0.03); Imm Gran Pct Auto 0.2 % (0.0-0.4); Lymphocytes Absolute Auto 1.5 X10*3/uL (1.2-4.9); Lymphocytes Percent Auto 24.2 % (20-40); Mean Corpuscular HGB Conc 29.5 g/dl (31.0-35.0); Mean Corpuscular Hemoglobin 24.1 pg (27.0-33.0); Mean Corpuscular Volume 81.6 fL (80.0-98.0); Mean Platelet Volume 11.3 fL (9.4-12.3); Monocytes Absolute Auto 0.5 X10*3/uL (0.1-1.2); Neutrophils Absolute Auto 4.1 x10*3/uL (2.0-8.3); Neutrophils Percent Auto 64.8 % (45-73); Platelet Count 233 X10*3/uL (160-400); Red Blood Count 4.03 X10*6/uL (4.20-5.50); Red Cell Distribution Width 21.2 % (11.0-16.0); White Blood Count 6.4 X10*3/uL (4.8-10.8)
[2023-01-28] MEDS: LORazepam 1 MG TABLET PO (18:57)
--- NOTE | 2023-01-28 21:41 | PHA.MEDREC ---
Pharmacy Consult ? Medication Reconciliation Pharmacy has completed the medication reconciliation. Pharmacy has reviewed med rec done by Neel
[2023-01-28] MEDS: Zolpidem Tartrate 5 MG TABLET 10 MG PO (22:13)
--- NOTE | 2023-01-29 | ECG_ITS ---
Test Reason : check qt Blood Pressure : / mmHG Vent. Rate : 064 BPM Atrial Rate : 064 BPM P-R Int : 108 ms QRS Dur : 074 ms QT Int : 436 ms P-R-T Axes : 062 -16 012 degrees QTc Int : 449 ms Sinus rhythm with short MS Otherwise normal ECG When compared with ECG of 26-DEC-2022 13:59, No significant changes seen Referred By: Rayray Lopez Electronically Signed By:JARED PINEDA
[2023-01-29 01:42] VITALS: BP 116/75; PULSE 63; RESP 18; TEMP 36.3; O2SAT 100
[2023-01-29 02:02] LABS: COVID-19 Test Negative (Negative); IDNOW Serial# 6674DD1D
--- NOTE | 2023-01-29 06:27 | PC.NURSE ---
Patient slept through the night, no distress observed/reported, medication compliant, behavior non concerning, disposition per care team is section 12 inpatient bed search, VSS, will continue to monitor
--- NOTE | 2023-01-29 07:04 | PC.NURSE ---
patient appears to remain asleep respirations are even and unalbored patient appears in no distress
--- NOTE | 2023-01-29 08:23 | HE.PHANOTE ---
Methadone verification form received by pharmacy. Patients dose confirmed at 128 mg daily. Last dose 01/28/2023. Confirmed with Shahrzad [place]
[2023-01-29] MEDS: methADONE HCl 20 MG/2 ML ORAL.CONC 128 MG PO (08:41)
[2023-01-29] MEDS: LORazepam 1 MG TABLET PO (08:42)
[2023-01-29] MEDS: Gabapentin 300 MG CAPSULE PO ×3 (08:42→19:49)
[2023-01-29] MEDS: FLUoxetine HCl 20 MG CAPSULE 40 MG PO (08:42)
[2023-01-29] MEDS: Ferrous Sulfate 324 MG TABLET.DR PO (08:42)
[2023-01-29] MEDS: Ascorbic Acid 500 MG TABLET PO (08:42)
[2023-01-29 10:08] VITALS: BP 130/80; PULSE 73; RESP 18; TEMP 37.1; O2SAT 98
[2023-01-29] MEDS: cloNIDine HCL 0.1 MG TABLET 0.05 MG PO (15:20)
--- NOTE | 2023-01-29 15:46 | PC.NURSE ---
nurse to nurse given to m5
[2023-01-29 16:17] VITALS: BP 118/87; PULSE 71; TEMP 36.1
--- NOTE | 2023-01-29 17:23 | PC.ADMIT ---
Pt is a 47 year old female who presented to [facility] ED secondary to increased anxiety, depression, SI with plans to cut and CAH to ?Kill herself.? UTOX positive for cocaine and THC. Pt reports voices started in the past couple weeks. Pt stated, ?I feel like I?m going crazy,? Pt said she hasn?t cut herself since high school but is now cutting all the time because of the new onset of AH. States, ?I don?t know what's wrong with me.? and reports not feeling right. Pt has been cutting ?secretly? so no one can see. Pt has cuts on bilateral thighs, right ribs, left wrist, left upper inner arm, and on her thumb. All the cuts are healing well. She describes the voices as neither male or female, but a demonic voice. Pt states AH wakes her up at night. Pt states the voices are becoming too much. Pt is advocating for her needs. Pt is calm and cooperative, and tearful upon admission. Pt rates anxiety 6/10 and depression 9/10. Pt denies SI/HI/VH at this time but does sometimes have AH. Pt reports feeling safe on the unit and can come to staff if needed. MD is aware of admission and orders are placed. Begin treatment plan and monitor for safety.
[2023-01-29] MEDS: Zolpidem Tartrate 5 MG TABLET 10 MG PO (19:49)
[2023-01-29] MEDS: Prazosin HCL 1 MG CAPSULE PO (19:49)
[2023-01-29] MEDS: Sennosides/Docusate Sodium TABLET 1 TAB PO (19:50)
[2023-01-29] MEDS: Acetaminophen 325 MG TABLET 650 MG PO (19:50)
[2023-01-30 07:56] LABS: Estimated Average Glucose 91 mg/dL; Hemoglobin A1c % 4.8 %
[2023-01-30 08:08] LABS: Alanine Aminotransferase 9 U/L (0-31); Alkaline Phosphatase 60 U/L (39-117); Anion Gap 13 (12-20); Aspartate Amino Transferase 13 U/L (5-31); Bilirubin Total 0.3 mg/dL (0.0-1.0); Blood Urea Nitrogen 22 mg/dL (9-16); Calcium 9.4 mg/dL (8.4-10.2); Carbon Dioxide 24 mmol/L (22-29); Chloride 107 mmol/L (96-108); Cholesterol 201 mg/dL; Creatinine Clr Calc Pharmacy 70.5; Estimated Glomerular Filt Rate > 60; Glucose Fasting 87 mg/dL (60-99); HDL Cholesterol 56 mg/dL; LDL Cholesterol Calculated 129 mg/dl; Potassium 4.9 mmol/L (3.3-5.1); Sodium 139 mmol/L (135-145); Total Protein 7.7 g/dL (6.5-8.0); Triglycerides 80 mg/dL
[2023-01-30] MEDS: FLUoxetine HCl 20 MG CAPSULE 40 MG PO (08:24)
[2023-01-30] MEDS: Ascorbic Acid 500 MG TABLET PO (08:24)
[2023-01-30] MEDS: Gabapentin 300 MG CAPSULE PO ×3 (08:24→20:02)
[2023-01-30] MEDS: Ferrous Sulfate 324 MG TABLET.DR PO (08:24)
[2023-01-30 08:26] VITALS: BP 130/85; PULSE 105; RESP 18; TEMP 36.6; O2SAT 96
[2023-01-30 08:38] LABS: Folate 13.5 ng/mL (> or = 4.0); Free T4 (Free Thyroxine) 0.85 ng/dL (0.71-1.85); Thyroid Stimulating Hormone 1.75 uIU/mL (0.32-4.0); Vitamin B12 291 pg/mL (200-900)
[2023-01-30] MEDS: Acetaminophen 325 MG TABLET 650 MG PO ×2 (08:40→20:05)
[2023-01-30] MEDS: methADONE HCl 20 MG/2 ML ORAL.CONC 125 MG PO (08:52)
[2023-01-30] MEDS: LORazepam 1 MG TABLET PO (14:04)
[2023-01-30 15:56] VITALS: BP 114/70; PULSE 58; TEMP 37
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
[2023-01-30] MEDS: Zolpidem Tartrate 5 MG TABLET 10 MG PO (20:02)
[2023-01-30] MEDS: Sennosides/Docusate Sodium TABLET 1 TAB PO (20:02)
[2023-01-31] MEDS: methADONE HCl 20 MG/2 ML ORAL.CONC 125 MG PO (08:03)
[2023-01-31] MEDS: Ferrous Sulfate 324 MG TABLET.DR PO (08:03)
[2023-01-31] MEDS: FLUoxetine HCl 20 MG CAPSULE PO (08:04)
[2023-01-31] MEDS: Ascorbic Acid 500 MG TABLET PO (08:04)
[2023-01-31] MEDS: Gabapentin 300 MG CAPSULE PO ×3 (08:04→20:16)
[2023-01-31 08:10] VITALS: BP 109/75; PULSE 75; RESP 18; TEMP 36.4; O2SAT 100
[2023-01-31] MEDS: LORazepam 1 MG TABLET PO ×2 (09:28→17:11)
[2023-01-31] MEDS: Acetaminophen 325 MG TABLET 650 MG PO ×2 (09:28→20:15)
--- NOTE | 2023-01-31 09:56 | HO.PSYCHPN ---
Subjective Subjective Date of Service: 01/31/23 Reason For Visit: Suicidal ideation Interim History: Patient seen. Discussed with team. Patient reports she feels anxious and continues to have auditory hallucinations. She didn't take Thorazine as advised yesterday. She says she was worried about getting allergic reaction . Upon clarification she means dystonia. She was educated about thorazine and low probability of EPS. She was encouraged to take it. Review of Systems Review of Systems Constitutional : No Weight loss, No Fever, No Chills, No Fatigue, No Malaise ENT/Mouth : No sore throat, No Rhinorrhea Eyes: No Eye Pain, No Swelling, No Redness Cardiovascular : No Chest Pain, No SOB, No Dyspnea on Exertion, No Orthopnea, No Edema, No Palpitations Respiratory : No Cough, No Sputum, No Wheezing Gastrointestinal : No Nausea, No Vomiting, No Diarrhea, No Constipation, No abdominal Pain, No Hematochezia, No Melena Genitourinary : No Dysuria, No Urinary Frequency, No Hematuria, Musculoskeletal : No joint pain, No Myalgias, No Joint Swelling Skin : No Skin Lesions, No rash Neuro : No Weakness, No Numbness, No Dizziness, No Headache Psych : + Anxiety/Panic, + Depression, + SI All other systems reviewed and are negative Yes all other systems are reviewed and are negative Mental Status Exam Mental Status Exam Patient Appearance: Well Grooomed and Appropriate Patient Orientation: Person, Place, Time and Situation Level of Consciousness: Awake and Alert Patient Behavior: Appropriate, Timid, Anxious, Fearful and Good Eye Contact Mood Description: Constricted, Fearful, Anxious and Nervous Affect Description: Anxious Ability to Follow Directions: Excellent Speech Pattern: Clear Memory Description: Intact Diagnostics Vital Signs (24Hr): Vital Signs - 24 hr 01/30/23 15:56 01/31/23 08:10 Temperature 98.6 F 97.6 F Pulse Rate 58 75 Respiratory Rate 18 Blood Pressure 114/70 109/75 Pulse Oximetry 100 Oxygen Delivery Method Room Air BMI result Body Mass Index 24.4 Labs 01/28/23 17:40 01/30/23 07:14 Labs: Laboratory Results - last 48 hr 01/30/23 01/30/23 07:14 07:14 Sodium 139 Potassium 4.9 Chloride 107 Carbon Dioxide 24 Anion Gap 13 BUN 22 H Creatinine 0.83 Estim Creat Clear Calc 70.5 Estimated GFR > 60 Fasting Glucose 87 Estimat Average Glucose 91 Hemoglobin A1c % 4.8 Calcium 9.4 Total Bilirubin 0.3 AST 13 ALT 9 Alkaline Phosphatase 60 Total Protein 7.7 Albumin 4.0 Triglycerides 80 Cholesterol 201 LDL Cholesterol, Calc 129 HDL Cholesterol 56 Vitamin B12 291 Folate 13.5 TSH 1.75 Free T4 0.85 Medications Medications Current Medications Acetaminophen (Acetaminophen 325 Mg Tablet) 650 mg PO Q6H PRN PRN Reason: Headache/Pain Mild Scale (1-3) Last Admin: 01/31/23 09:28 Dose: 650 mg Al Hydroxide/Mg Hydroxide (Magnesium Hydrox/Alum Hydrox 30 Ml Oral.Susp) 30 ml PO Q6H PRN PRN Reason: Heartburn/Nausea Ascorbic Acid (Ascorbic Acid 500 Mg Tablet) 500 mg PO DAILY [facility] Last Admin: 01/31/23 08:04 Dose: 500 mg Chlorpromazine HCl (Chlorpromazine Hcl 25 Mg Tablet) 25 mg PO Q6H PRN PRN Reason: hallucinations Clonidine HCl (Clonidine Hcl 0.1 Mg Tablet) 0.05 mg PO TID PRN; Protocol PRN Reason: anxiety Last Admin: 01/29/23 15:20 Dose: 0.05 mg Ferrous Sulfate (Ferrous Sulfate 324 Mg Tablet.Dr) 324 mg PO DAILY [facility] Last Admin: 01/31/23 08:03 Dose: 324 mg Fluoxetine HCl (Fluoxetine Hcl 20 Mg Capsule) 20 mg PO DAILY [facility] Last Admin: 01/31/23 08:04 Dose: 20 mg Gabapentin (Gabapentin 300 Mg Capsule) 300 mg PO TID [facility] Last Admin: 01/31/23 08:04 Dose: 300 mg Hydroxyzine HCl (Hydroxyzine Hcl 25 Mg Tablet) 25 mg PO Q6H PRN PRN Reason: Anxiety Lorazepam (Lorazepam 1 Mg Tablet) 1 mg PO BID PRN PRN Reason: anxiety Last Admin: 01/31/23 09:28 Dose: 1 mg Magnesium Hydroxide (Milk Of Magnesia 30 Ml Oral.Susp) 30 ml PO DAILY PRN PRN Reason: Constipation Methadone HCl (Methadone Hcl 20 Mg/2 Ml Oral.Conc) 125 mg PO DAILY [facility] Last Admin: 01/31/23 08:03 Dose: 125 mg Pharmacy Consult (Consult Rx Perform Med Rec) 1 each MISCELLANE ONCE PRN PRN Reason: Consult order Senna/Docusate Sodium (Sennosides/Docusate Sodium Tablet) 1 tab PO DAILY PRN PRN Reason: constipation Last Admin: 01/30/23 20:02 Dose: 1 tab Sumatriptan Succinate (Sumatriptan Succinate 50 Mg Tablet) 50 mg PO DAILY PRN PRN Reason: migraine Zolpidem Tartrate (Zolpidem Tartrate 5 Mg Tablet) 10 mg PO BEDTIME PRN PRN Reason: insomnia Last Admin: 01/30/23 20:02 Dose: 10 mg Allergies Allergies Allergy/AdvReac Type Severity Reaction Status Date / Time diphenhydramine Allergy Severe RASH Verified 12/26/22 21:20 [From BENADRYL] trazodone [TRAZODONE] AdvReac Severe DYSTONIC Verified 12/26/22 21:20 risperidone [Risperdal] AdvReac Unknown Dystonia Verified 12/26/22 21:20 Assessment & Plan Assessment & Plan (1) Opioid use disorder: Status: Acute Code(s): F11.90 - Opioid use, unspecified, uncomplicated (2) Cocaine use disorder: Status: Acute Code(s): F14.10 - Cocaine abuse, uncomplicated (3) PTSD (post-traumatic stress disorder): Status: Acute Code(s): F43.10 - Post-traumatic stress disorder, unspecified (4) MDD (major depressive disorder), recurrent episode, severe: Status: Acute Code(s): F33.2 - Major depressive disorder, recurrent severe without psychotic features Plan 47 year old female with a history of PTSD, depression, polysubstance use disorder including opioids on methadone, presents with increased depression and subacute onset of CAH to cut herself. Patient has had at least 3 recent psychiatric admissions for increased depression but her AH are new to her per her report. Self harm had been quiescent since adolescence. Differential Dx: Cocaine induced psychosis/psychotic depression. PTSD exacerbation. Medication side effects, namely increase SSRI + 5HT1 agonist Admit to M5 CV Observation and diagnostic clarification Collaterals Decrease Prozac to 20 mg daily Add Thorazine PRN. Group and milieu therapy. Disposition planning. 01/31: Continue current treatment plan. Encourage milieu engagement. Reason for continued inpatient stay Substantial Risk for: harm to self, inability to function and rapid decompensation Time Spent With Patient Time: Total time managing care of this patient today ____ minutes.
[2023-01-31 17:07] VITALS: BP 111/64; PULSE 60; TEMP 36.5
[2023-01-31] MEDS: Zolpidem Tartrate 5 MG TABLET 10 MG PO (20:15)
[2023-01-31] MEDS: Sennosides/Docusate Sodium TABLET 1 TAB PO (20:16)
[2023-02-01] MEDS: FLUoxetine HCl 20 MG CAPSULE PO ×2 (08:23→14:22)
[2023-02-01] MEDS: Ascorbic Acid 500 MG TABLET PO (08:23)
[2023-02-01] MEDS: Ferrous Sulfate 324 MG TABLET.DR PO (08:23)
[2023-02-01] MEDS: Gabapentin 300 MG CAPSULE PO ×3 (08:23→20:56)
[2023-02-01] MEDS: methADONE HCl 20 MG/2 ML ORAL.CONC 125 MG PO (08:24)
[2023-02-01 08:27] VITALS: BP 121/78; PULSE 75; RESP 16; TEMP 37.1; O2SAT 99
--- NOTE | 2023-02-01 10:10 | P.PNPSI_ITS ---
Subjective Subjective Date of Service: 02/01/23 Reason For Visit: Suicidal ideation Interim History: With patient; discussed with team Patient reports continued depression. Continued intermittent auditory hallucinations however they mostly occur during dreams; they do happen during the daytime but patient says that she will be doing something mundane, like watching television and then zone out and when zoned out she will hear a voice saying negative things like kill yourself, you are worthless... etc.. It is 1 voice that she does not recognize. Patient knows it is not real and that it is just a hallucination however it is so bothersome that she started superficially cutting to distract herself. Patient reports she has never had auditory hallucinations before. But she reports history of zoning out which sounds like dissociative episodes. Patient anxious about taking antipsychotic medications saying she has had numerous negative side effects from medications including dystonic reaction. She is amenable to medication management however. Agrees to increase Prozac for now to see if it can be helpful. Patient shared recent history and said that after admission on M5 she did okay for a little while but got depressed again and was readmitted to 3; she said Prozac increased however depression and anxiety remained. She does not think that auditory hallucinations coincide with increased Prozac. Patient denies any history of manic episodes or symptoms. Discussed cocaine abuse and says it is usually only a few times a month at most. Reviewed medication history and Risperdal caused dystonia Seroquel caused excessive sedation [place] had no side effects however she can not remember if it was helpful or not. Mental Status Exam Mental Status Exam Narrative: Pt is alert and oriented; behavior is cooperative, calm; patient is in emotional distress; appropriately dressed in casual attire with adequate hygiene; mood is described as depressed... Anxious and affect congruent, downcast, tearful; eye contact appropriate; Speech is normal rate, volume and prosody and not pressured; some psychomotor retardation present; thought process is organized and goal directed; Thought content is dealing with depression, symptoms, anxious about AH; otherwise pertinent to relevant topics and without any delusional content, paranoid ideations or grandiosity; positive for SI; no HI. Positive for AH Patients insight and judgment impaired Diagnostics Vital Signs (24Hr): Vital Signs - 24 hr 01/31/23 17:07 02/01/23 08:27 Temperature 97.7 F 98.7 F Pulse Rate 60 75 Respiratory Rate 16 Blood Pressure 111/64 121/78 Pulse Oximetry 99 Oxygen Delivery Method Room Air BMI result Body Mass Index 24.4 Labs 01/28/23 17:40 01/30/23 07:14 Medications Medications Current Medications Acetaminophen (Acetaminophen 325 Mg Tablet) 650 mg PO Q6H PRN PRN Reason: Headache/Pain Mild Scale (1-3) Last Admin: 01/31/23 20:15 Dose: 650 mg Al Hydroxide/Mg Hydroxide (Magnesium Hydrox/Alum Hydrox 30 Ml Oral.Susp) 30 ml PO Q6H PRN PRN Reason: Heartburn/Nausea Ascorbic Acid (Ascorbic Acid 500 Mg Tablet) 500 mg PO DAILY [facility] Last Admin: 02/01/23 08:23 Dose: 500 mg Chlorpromazine HCl (Chlorpromazine Hcl 25 Mg Tablet) 25 mg PO Q6H PRN PRN Reason: hallucinations Clonidine HCl (Clonidine Hcl 0.1 Mg Tablet) 0.05 mg PO TID PRN; Protocol PRN Reason: anxiety Last Admin: 01/29/23 15:20 Dose: 0.05 mg Ferrous Sulfate (Ferrous Sulfate 324 Mg Tablet.Dr) 324 mg PO DAILY [facility] Last Admin: 02/01/23 08:23 Dose: 324 mg Fluoxetine HCl (Fluoxetine Hcl 20 Mg Capsule) 20 mg PO DAILY [facility] Last Admin: 02/01/23 08:23 Dose: 20 mg Gabapentin (Gabapentin 300 Mg Capsule) 300 mg PO TID [facility] Last Admin: 02/01/23 08:23 Dose: 300 mg Hydroxyzine HCl (Hydroxyzine Hcl 25 Mg Tablet) 25 mg PO Q6H PRN PRN Reason: Anxiety Lorazepam (Lorazepam 1 Mg Tablet) 1 mg PO BID PRN PRN Reason: anxiety Last Admin: 01/31/23 17:11 Dose: 1 mg Magnesium Hydroxide (Milk Of Magnesia 30 Ml Oral.Susp) 30 ml PO DAILY PRN PRN Reason: Constipation Methadone HCl (Methadone Hcl 20 Mg/2 Ml Oral.Conc) 125 mg PO DAILY [facility] Last Admin: 02/01/23 08:24 Dose: 125 mg Pharmacy Consult (Consult Rx Perform Med Rec) 1 each MISCELLANE ONCE PRN PRN Reason: Consult order Senna/Docusate Sodium (Sennosides/Docusate Sodium Tablet) 1 tab PO DAILY PRN PRN Reason: constipation Last Admin: 01/31/23 20:16 Dose: 1 tab Sumatriptan Succinate (Sumatriptan Succinate 50 Mg Tablet) 50 mg PO DAILY PRN PRN Reason: migraine Zolpidem Tartrate (Zolpidem Tartrate 5 Mg Tablet) 10 mg PO BEDTIME PRN PRN Reason: insomnia Last Admin: 01/31/23 20:15 Dose: 10 mg Allergies Allergies Allergy/AdvReac Type Severity Reaction Status Date / Time diphenhydramine Allergy Severe RASH Verified 12/26/22 21:20 [From BENADRYL] trazodone [TRAZODONE] AdvReac Severe DYSTONIC Verified 12/26/22 21:20 risperidone [Risperdal] AdvReac Unknown Dystonia Verified 12/26/22 21:20 Assessment & Plan Assessment & Plan (1) Opioid use disorder: Status: Acute Code(s): F11.90 - Opioid use, unspecified, uncomplicated (2) Cocaine use disorder: Status: Acute Code(s): F14.10 - Cocaine abuse, uncomplicated (3) PTSD (post-traumatic stress disorder): Status: Acute Code(s): F43.10 - Post-traumatic stress disorder, unspecified (4) MDD (major depressive disorder), recurrent episode, severe: Status: Acute Code(s): F33.2 - Major depressive disorder, recurrent severe without psychotic features Plan 47 year old female with a history of PTSD, depression, polysubstance use disorder including opioids on methadone, presents with increased depression and subacute onset of CAH to cut herself. Patient has had at least 3 recent psychiatric admissions for increased depression but her AH are new to her per her report. Self harm had been quiescent since adolescence. Hospital course: 02/01 Patient reports continued depression. Continued intermittent auditory hallucinations however they mostly occur during dreams; they do happen during the daytime but patient says that she will be doing something mundane, like watching television and then zone out and when zoned out she will hear a voice saying negative things like kill yourself, you are worthless... etc.. It is 1 voice that she does not recognize. Patient knows it is not real and that it is just a hallucination however it is so bothersome that she started superficially cutting to distract herself. Patient reports she has never had auditory hallucinations before. But she reports history of zoning out which sounds like dissociative episodes. Patient anxious about taking antipsychotic medi cations saying she has had numerous negative side effects from medications including dystonic reaction. She is amenable to medication management however. Patient shared recent history and said that after admission on M5 she did okay for a little while but got depressed again and was readmitted to M 3; she said Prozac increased however depression and anxiety remained. She does not think that auditory hallucinations coincide with increased Prozac. Patient denies any history of manic episodes or symptoms. Discussed cocaine abuse and says it is usually only a few times a month at most. Discussed long history of unprocessed trauma and how it is no longer able to be ignored Impression: AH seems most likely mood congruent due to worsening depression and PTSD; AH happens mostly during nightmares; daytime occurrences are during a dissociative episode. No associated manic symptoms with increased Prozac. -Given that this is most likely mood congruent AH and Since patient has tolerated Prozac, (and is hesitant to try antipsychotics) will titrate Prozac to 60 mg (patient was taking 40 mg up until day of admission was lowered to 20 mg); discussed risks and side effects of this approach which patient agrees with and accepts. Differential Dx: MDD, recurrent, severe with psychotic features PTSD exacerbation with dissociative episodes Less likely Cocaine induced psychosis/psychotic depression, as patient reports it is only a few times a month, sober for years but relapsed due to depression. Less likely Medication side effects, namely increase SSRI + 5HT1 agonist PLAN: Admit to M5 CV Will INCREASE Prozac to 60 mg daily Schedule clonidine 0.05 mg q.h.s. for trouble with sleep and nightmares (prazosin causes headache) DC Thorazine; patient decided does not want to Consider Lamictal... otherwise: Milieu therapy Aftercare plan with therapist medication history: -Risperdal caused dystonia -Seroquel caused excessive sedation -[place] had no side effects however she can not remember if it was helpful or not. -prazosin causes headache -Wellbutrin, Celexa, Remeron, trazodone:? Patient says that either did not work or adverse reaction Patient educated on: diagnosis, medication risk/benefits, substance abuse and therapeutic strategies Informed Consent: understands Reason for continued inpatient stay Substantial Risk for: harm to self and rapid decompensation Time Spent With Patient Time: Total time managing care of this patient today ____ minutes.
[2023-02-01] MEDS: LORazepam 1 MG TABLET PO ×2 (14:23→20:59)
[2023-02-01 20:30] VITALS: BP 108/76; PULSE 79; TEMP 36.9; O2SAT 100
[2023-02-01] MEDS: cloNIDine HCL 0.1 MG TABLET 0.05 MG PO (20:56)
[2023-02-01] MEDS: Sennosides/Docusate Sodium TABLET 1 TAB PO (20:56)
[2023-02-01] MEDS: Zolpidem Tartrate 5 MG TABLET 10 MG PO (20:58)
[2023-02-01] MEDS: Acetaminophen 325 MG TABLET 650 MG PO (20:59)
[2023-02-02 06:00] VITALS: BP 107/75; PULSE 85; RESP 16; TEMP 37; O2SAT 98
[2023-02-02] MEDS: Ferrous Sulfate 324 MG TABLET.DR PO (08:30)
[2023-02-02] MEDS: Gabapentin 300 MG CAPSULE PO ×3 (08:30→20:18)
[2023-02-02] MEDS: Ascorbic Acid 500 MG TABLET PO (08:30)
[2023-02-02] MEDS: FLUoxetine HCl 20 MG CAPSULE 60 MG PO (08:30)
[2023-02-02] MEDS: methADONE HCl 20 MG/2 ML ORAL.CONC 125 MG PO (08:31)
[2023-02-02] MEDS: LORazepam 1 MG TABLET PO ×2 (08:54→15:52)
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
[2023-02-02 19:50] VITALS: BP 110/66; PULSE 77; TEMP 36.1
[2023-02-02] MEDS: Sennosides/Docusate Sodium TABLET 1 TAB PO (20:18)
[2023-02-02] MEDS: cloNIDine HCL 0.1 MG TABLET 0.05 MG PO (20:18)
[2023-02-02] MEDS: Zolpidem Tartrate 5 MG TABLET 10 MG PO (20:18)
[2023-02-03 07:00] VITALS: BMI 24.7
[2023-02-03 07:55] VITALS: BP 113/73; PULSE 100; RESP 18; TEMP 36.1; O2SAT 100
[2023-02-03] MEDS: Gabapentin 300 MG CAPSULE PO ×3 (07:55→20:57)
[2023-02-03] MEDS: FLUoxetine HCl 20 MG CAPSULE 60 MG PO (07:55)
[2023-02-03] MEDS: Ferrous Sulfate 324 MG TABLET.DR PO (07:55)
[2023-02-03] MEDS: methADONE HCl 20 MG/2 ML ORAL.CONC 125 MG PO (07:56)
[2023-02-03] MEDS: Ascorbic Acid 500 MG TABLET PO (07:56)
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
[2023-02-03] MEDS: Acetaminophen 325 MG TABLET 650 MG PO (11:24)
[2023-02-03] MEDS: LORazepam 1 MG TABLET PO ×2 (11:25→16:38)
[2023-02-03] MEDS: Ibuprofen 600 MG TABLET PO (16:36)
[2023-02-03 20:50] VITALS: BP 118/73; PULSE 77; TEMP 36.1
[2023-02-03] MEDS: Zolpidem Tartrate 5 MG TABLET 10 MG PO (20:56)
[2023-02-03] MEDS: cloNIDine HCL 0.1 MG TABLET 0.05 MG PO (20:57)
[2023-02-04] MEDS: Gabapentin 300 MG CAPSULE PO ×2 (08:36→15:06)
[2023-02-04] MEDS: methADONE HCl 20 MG/2 ML ORAL.CONC 125 MG PO (08:36)
[2023-02-04] MEDS: FLUoxetine HCl 20 MG CAPSULE 60 MG PO (08:36)
[2023-02-04] MEDS: Ferrous Sulfate 324 MG TABLET.DR PO (08:36)
[2023-02-04] MEDS: Ascorbic Acid 500 MG TABLET PO (08:36)
[2023-02-04 08:40] VITALS: BP 120/85; PULSE 104; RESP 16; TEMP 36.4; O2SAT 100
[2023-02-04] MEDS: LORazepam 1 MG TABLET PO ×2 (10:21→18:15)
--- NOTE | 2023-02-04 10:23 | HO.PSYCHPN ---
Subjective Subjective Date of Service: 02/04/23 Reason For Visit: Suicidal ideation Interim History: Met with patient; discussed with team Patient remains depressed and has intermittent AH. She talked about her anxieties trying new medications but agreed to try BuSpar to see if she was able to tolerated and if it could be increased. 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 Mental Status Exam Mental Status Exam Narrative: Pt is alert and oriented; behavior is cooperative, calm; appropriately dressed in casual attire, well groomed; mood is described as same and affect congruent, downcast; eye contact appropriate; Speech is normal rate, volume and prosody and not pressured; some psychomotor retardation present; thought process is organized and goal directed; Thought content is dealing with depression, symptoms, anxious about AH; otherwise pertinent to relevant topics and without any delusional content, paranoid ideations or grandiosity; no SI; no HI. Positive for AH Patients insight and judgment impaired Diagnostics Vital Signs (24Hr): Vital Signs - 24 hr 02/03/23 20:50 02/04/23 08:40 Temperature 97.0 F 97.5 F Pulse Rate 77 104 H Respiratory Rate 16 Blood Pressure 118/73 120/85 Pulse Oximetry 100 Oxygen Delivery Method Room Air BMI result Body Mass Index 24.7 Labs 01/28/23 17:40 01/30/23 07:14 Medications Medications Current Medications Acetaminophen (Acetaminophen 325 Mg Tablet) 650 mg PO Q6H PRN PRN Reason: Headache/Pain Mild Scale (1-3) Last Admin: 02/03/23 11:24 Dose: 650 mg Al Hydroxide/Mg Hydroxide (Magnesium Hydrox/Alum Hydrox 30 Ml Oral.Susp) 30 ml PO Q6H PRN PRN Reason: Heartburn/Nausea Ascorbic Acid (Ascorbic Acid 500 Mg Tablet) 500 mg PO DAILY [facility] Last Admin: 02/04/23 08:36 Dose: 500 mg Benztropine Mesylate (Benztropine Mesylate 1 Mg Tablet) 1 mg PO TID PRN PRN Reason: EPS/Dystonia Buspirone HCl (Buspirone Hcl 5 Mg Tablet) 5 mg PO TID PRN PRN Reason: anxiety Clonidine HCl (Clonidine Hcl 0.1 Mg Tablet) 0.05 mg PO BEDTIME [facility]; Protocol Last Admin: 02/03/23 20:57 Dose: 0.05 mg Clonidine HCl (Clonidine Hcl 0.1 Mg Tablet) 0.05 mg PO TID PRN; Protocol PRN Reason: anxiety Ferrous Sulfate (Ferrous Sulfate 324 Mg Tablet.Dr) 324 mg PO DAILY [facility] Last Admin: 02/04/23 08:36 Dose: 324 mg Fluoxetine HCl (Fluoxetine Hcl 20 Mg Capsule) 60 mg PO DAILY [facility] Last Admin: 02/04/23 08:36 Dose: 60 mg Gabapentin (Gabapentin 300 Mg Capsule) 300 mg PO TID [facility] Last Admin: 02/04/23 08:36 Dose: 300 mg Ibuprofen (Ibuprofen 600 Mg Tablet) 600 mg PO Q8H PRN PRN Reason: Pain, Mild (Pain Scale 1-3) Last Admin: 02/03/23 16:36 Dose: 600 mg Lorazepam (Lorazepam 1 Mg Tablet) 1 mg PO BID PRN PRN Reason: anxiety Last Admin: 02/04/23 10:21 Dose: 1 mg Magnesium Hydroxide (Milk Of Magnesia 30 Ml Oral.Susp) 30 ml PO DAILY PRN PRN Reason: Constipation Methadone HCl (Methadone Hcl 20 Mg/2 Ml Oral.Conc) 125 mg PO DAILY [facility] Last Admin: 02/04/23 08:36 Dose: 125 mg Pharmacy Consult (Consult Rx Perform Med Rec) 1 each MISCELLANE ONCE PRN PRN Reason: Consult order Senna/Docusate Sodium (Sennosides/Docusate Sodium Tablet) 1 tab PO DAILY PRN PRN Reason: constipation Last Admin: 02/02/23 20:18 Dose: 1 tab Sumatriptan Succinate (Sumatriptan Succinate 50 Mg Tablet) 50 mg PO DAILY PRN PRN Reason: migraine Zolpidem Tartrate (Zolpidem Tartrate 5 Mg Tablet) 10 mg PO BEDTIME PRN PRN Reason: Insomnia Last Admin: 02/03/23 20:56 Dose: 10 mg Allergies Allergies Allergy/AdvReac Type Severity Reaction Status Date / Time diphenhydramine Allergy Severe RASH Verified 12/26/22 21:20 [From BENADRYL] trazodone [TRAZODONE] AdvReac Severe DYSTONIC Verified 12/26/22 21:20 risperidone [Risperdal] AdvReac Unknown Dystonia Verified 12/26/22 21:20 Assessment & Plan Assessment & Plan (1) MDD (major depressive disorder), recurrent episode, severe: Status: Acute Code(s): F33.2 - Major depressive disorder, recurrent severe without psychotic features (2) PTSD (post-traumatic stress disorder): Status: Acute Code(s): F43.10 - Post-traumatic stress disorder, unspecified (3) Opioid use disorder: Status: Acute Code(s): F11.90 - Opioid use, unspecified, uncomplicated (4) Cocaine use disorder: Status: Acute Code(s): F14.10 - Cocaine abuse, uncomplicated Plan 47 year old female with a history of PTSD, depression, polysubstance use disorder including opioids on methadone, presents with increased depression and subacute onset of CAH to cut herself. Patient has had at least 3 recent psychiatric admissions for increased depression but her AH are new to her per her report. Self harm had been quiescent since adolescence. Hospital course: 02/01 Patient reports continued depression. Continued intermittent auditory hallucinations however they mostly occur during dreams; they do happen during the daytime but patient says that she will be doing something mundane, like watching television and then zone out and when zoned out she will hear a voice saying negative things like kill yourself, you are worthless... etc.. It is 1 voice that she does not recognize. Patient knows it is not real and that it is just a hallucination however it is so bothersome that she started superficially cutting to distract herself. Patient reports she has never had auditory hallucinations before. But she reports history of zoning out which sounds like dissociative episodes. Patient anxious about taking antipsychotic medications saying she has had numerous negative side effects from medications including dystonic reaction. She is amenable to medication management however. Patient shared recent history and said that after admission on M5 she did okay for a little while but got depressed again and was readmitted to M 3; she said Prozac increased however depression and anxiety remained. She does not think that auditory hallucinations coincide with increased Prozac. Patient denies any history of manic episodes or symptoms. Discussed cocaine abuse and says it is usually only a few times a month at most. Discussed long history of unprocessed trauma and how it is no longer able to be ignored 02/02 patient remains very depressed; worries she is going crazy due to AH which remain during dreams or when she is waking up and continued to be mood congruent. Patient shared details about her history of trauma which she has never processed. Patient starting to make connections between current symptoms and history. 02/03, patient remains depressed with intermittent AH; reports history of dystonic reaction x4 from antipsychotic and does not want to risk 5th time. 02/04 patient agrees to try BuSpar Impression: AH seems most likely mood congruent due to worsening depression and PTSD; AH happens mostly during nightmares; daytime occurrences are during a dissociative episode. No associated manic symptoms with increased Prozac. -Given that this is most likely mood congruent AH and Since patient has tolerated Prozac, (and is hesitant to try antipsychotics) will titrate Prozac to 60 mg (patient was taking 40 mg up until day of admission was lowered to 20 mg); discussed risks and side effects of this approach which patient agrees with and accepts. Dx: MDD, recurrent, severe with psychotic features PTSD exacerbation with dissociative episodes PLAN: Admit to M5 CV Continue Prozac to 60 mg daily Trial of BuSpar Schedule clonidine 0.05 mg q.h.s. for trouble with sleep and nightmares (prazosin causes headache) DC Thorazine; patient decided does not want to Consider Lamictal... Consider lithium which patient says caused no problems last time she tried it; not sure if it helped otherwise: Milieu therapy Aftercare plan with therapist medication history: -Risperdal caused dystonia -Seroquel caused excessive sedation -[place] had no side effects however she can not remember if it was helpful or not. -prazosin causes headache -Wellbutrin, Celexa, Remeron, trazodone:? Patient says that either did not work or adverse reaction Patient educated on: diagnosis and medication risk/benefits Informed Consent: understands Reason for continued inpatient stay Substantial Risk for: rapid decompensation Time Spent With Patient Time: Total time managing care of this patient today ____ minutes.
[2023-02-04] MEDS: busPIRone HCl 5 MG TABLET PO (14:14)
[2023-02-04] MEDS: Milk of Magnesia 30 ML ORAL.SUSP PO (16:28)
[2023-02-04] MEDS: Ibuprofen 600 MG TABLET PO (18:15)
[2023-02-04 19:22] VITALS: BP 131/85; PULSE 94; TEMP 36.2
[2023-02-04] MEDS: Zolpidem Tartrate 5 MG TABLET 10 MG PO (20:12)
[2023-02-04] MEDS: cloNIDine HCL 0.1 MG TABLET 0.05 MG PO (20:12)
[2023-02-04] MEDS: Sennosides/Docusate Sodium TABLET 1 TAB PO (20:14)
[2023-02-04] MEDS: Gabapentin 100 MG CAPSULE PO (20:26)
[2023-02-05] MEDS: Ascorbic Acid 500 MG TABLET PO (08:04)
[2023-02-05] MEDS: FLUoxetine HCl 20 MG CAPSULE 60 MG PO (08:04)
[2023-02-05] MEDS: Ibuprofen 600 MG TABLET PO (08:04)
[2023-02-05] MEDS: Gabapentin 100 MG CAPSULE PO ×3 (08:04→18:14)
[2023-02-05 08:28] VITALS: BP 129/85; PULSE 105; RESP 18; TEMP 36.6; O2SAT 96
[2023-02-05] MEDS: methADONE HCl 20 MG/2 ML ORAL.CONC 125 MG PO (08:59)
[2023-02-05] MEDS: LORazepam 1 MG TABLET PO ×2 (09:24→18:14)
--- NOTE | 2023-02-05 16:41 | P.PNPSI_ITS ---
Subjective Subjective Date of Service: 02/05/23 Reason For Visit: Suicidal ideation Subjective Notes: Conditional Voluntary Interim History: Met with patient;reviewed chart Patient remains depressed and has intermittent AH. She is very anxious about AH and nightmares. She is tolerating buspar but no relief at this time; She feels she can cope with symptoms and willing to give medication a little more time to work. No SI Medication Compliance: Yes Side effects from medications: No Attending Groups: Yes Review of Systems Acute medical concerns: No Medical Review of Systems: unchanged Review of Systems Review of Systems Constitutional : No Weight loss, No Fever, No Chills, No Fatigue, No Malaise ENT/Mouth : No sore throat, No Rhinorrhea Eyes: No Eye Pain, No Swelling, No Redness Cardiovascular : No Chest Pain, No SOB, No Dyspnea on Exertion, No Orthopnea, No Edema, No Palpitations Respiratory : No Cough, No Sputum, No Wheezing Gastrointestinal : No Nausea, No Vomiting, No Diarrhea, No Constipation, No abdominal Pain, No Hematochezia, No Melena Genitourinary : No Dysuria, No Urinary Frequency, No Hematuria, Musculoskeletal : No joint pain, No Myalgias, No Joint Swelling Skin : No Skin Lesions, No rash Neuro : No Weakness, No Numbness, No Dizziness, No Headache Psych : + Anxiety/Panic, + Depression, + SI All other systems reviewed and are negative Yes all other systems are reviewed and are negative Mental Status Exam Mental Status Exam Narrative: Pt is alert and oriented; behavior is cooperative, calm; appropriately dressed in casual attire, well groomed; mood is described as same and affect congruent, downcast; eye contact appropriate; Speech is normal rate, volume and prosody and not pressured; some psychomotor retardation present; thought process is organized and goal directed; Thought content is dealing with depression, symptoms, anxious about AH; otherwise pertinent to relevant topics and without any delusional content, paranoid ideations or grandiosity; no SI; no HI. Positive for AH Patients insight and judgment impaired Patient Appearance: Well Grooomed and Appropriate Patient Orientation: Person, Place, Time and Situation Level of Consciousness: Awake and Alert Patient Behavior: Appropriate, Timid, Anxious, Fearful and Good Eye Contact Mood Description: Constricted, Fearful, Anxious and Nervous Affect Description: Anxious Ability to Follow Directions: Excellent Speech Pattern: Clear Memory Description: Intact Diagnostics Vital Signs (24Hr): Vital Signs - 24 hr 02/04/23 19:22 02/05/23 08:28 Temperature 97.1 F 97.8 F Pulse Rate 94 105 H Respiratory Rate 18 Blood Pressure 131/85 129/85 Pulse Oximetry 96 Oxygen Delivery Method Room Air BMI result Body Mass Index 24.7 Labs 01/28/23 17:40 01/30/23 07:14 Medications Medications Current Medications Acetaminophen (Acetaminophen 325 Mg Tablet) 650 mg PO Q6H PRN PRN Reason: Headache/Pain Mild Scale (1-3) Last Admin: 02/03/23 11:24 Dose: 650 mg Al Hydroxide/Mg Hydroxide (Magnesium Hydrox/Alum Hydrox 30 Ml Oral.Susp) 30 ml PO Q6H PRN PRN Reason: Heartburn/Nausea Ascorbic Acid (Ascorbic Acid 500 Mg Tablet) 500 mg PO DAILY [facility] Last Admin: 02/05/23 08:04 Dose: 500 mg Benztropine Mesylate (Benztropine Mesylate 1 Mg Tablet) 1 mg PO TID PRN PRN Reason: EPS/Dystonia Buspirone HCl (Buspirone Hcl 5 Mg Tablet) 5 mg PO TID [facility] Last Admin: 02/05/23 14:11 Dose: Not Given Clonidine HCl (Clonidine Hcl 0.1 Mg Tablet) 0.05 mg PO BEDTIME [facility]; Protocol Last Admin: 02/04/23 20:12 Dose: 0.05 mg Clonidine HCl (Clonidine Hcl 0.1 Mg Tablet) 0.05 mg PO Q4H PRN; Protocol PRN Reason: anxiety Ferrous Sulfate (Ferrous Sulfate 324 Mg Tablet.Dr) 324 mg PO DAILY [facility] Last Admin: 02/05/23 08:08 Dose: Not Given Fluoxetine HCl (Fluoxetine Hcl 20 Mg Capsule) 60 mg PO DAILY [facility] Last Admin: 02/05/23 08:04 Dose: 60 mg Gabapentin (Gabapentin 100 Mg Capsule) 100 mg PO TID [facility] Last Admin: 02/05/23 14:06 Dose: 100 mg Ibuprofen (Ibuprofen 600 Mg Tablet) 600 mg PO Q8H PRN PRN Reason: Pain, Mild (Pain Scale 1-3) Last Admin: 02/05/23 08:04 Dose: 600 mg Lorazepam (Lorazepam 1 Mg Tablet) 1 mg PO BID PRN PRN Reason: anxiety Last Admin: 02/05/23 09:24 Dose: 1 mg Magnesium Hydroxide (Milk Of Magnesia 30 Ml Oral.Susp) 30 ml PO DAILY PRN PRN Reason: Constipation Last Admin: 02/04/23 16:28 Dose: 30 ml Methadone HCl (Methadone Hcl 20 Mg/2 Ml Oral.Conc) 125 mg PO DAILY [facility] Last Admin: 02/05/23 08:59 Dose: 125 mg Pharmacy Consult (Consult Rx Perform Med Rec) 1 each MISCELLANE ONCE PRN PRN Reason: Consult order Senna/Docusate Sodium (Sennosides/Docusate Sodium Tablet) 1 tab PO DAILY PRN PRN Reason: constipation Last Admin: 02/04/23 20:14 Dose: 1 tab Sumatriptan Succinate (Sumatriptan Succinate 50 Mg Tablet) 50 mg PO DAILY PRN PRN Reason: migraine Zolpidem Tartrate (Zolpidem Tartrate 5 Mg Tablet) 10 mg PO BEDTIME PRN PRN Reason: Insomnia Last Admin: 02/04/23 20:12 Dose: 10 mg Allergies Allergies Allergy/AdvReac Type Severity Reaction Status Date / Time diphenhydramine Allergy Severe RASH Verified 12/26/22 21:20 [From BENADRYL] trazodone [TRAZODONE] AdvReac Severe DYSTONIC Verified 12/26/22 21:20 risperidone [Risperdal] AdvReac Unknown Dystonia Verified 12/26/22 21:20 Assessment & Plan Assessment & Plan (1) MDD (major depressive disorder), recurrent episode, severe: Status: Acute Code(s): F33.2 - Major depressive disorder, recurrent severe without psychotic features (2) PTSD (post-traumatic stress disorder): Status: Acute Code(s): F43.10 - Post-traumatic stress disorder, unspecified (3) Opioid use disorder: Status: Acute Code(s): F11.90 - Opioid use, unspecified, uncomplicated (4) Cocaine use disorder: Status: Acute Code(s): F14.10 - Cocaine abuse, uncomplicated Plan 47 year old female with a history of PTSD, depression, polysubstance use disorder including opioids on methadone, presents with increased depression and subacute onset of CAH to cut herself. Patient has had at least 3 recent psychiatric admissions for increased depression but her AH are new to her per her report. Self harm had been quiescent since adolescence. Hospital course: 02/01 Patient reports continued depression. Continued intermittent auditory hallucinations however they mostly occur during dreams; they do happen during the daytime but patient says that she will be doing something mundane, like watching television and then zone out and when zoned out she will hear a voice saying negative things like kill yourself, you are worthless... etc.. It is 1 voice that she does not recognize. Patient knows it is not real and that it is just a hallucination however it is so bothersome that she started superficially cutting to distract herself. Patient reports she has never had auditory hallucinations before. But she reports history of zoning out which sounds like dissociative episodes. Patient anxious about taking antipsychotic medications saying she has had numerous negative side effects from medications including dystonic reaction. She is amenable to medication management however. Patient shared recent history and said that after admission on M5 she did okay for a little while but got depressed again and was readmitted to M 3; she said Prozac increased however depression and anxiety remained. She does not think that auditory hallucinations coincide with increased Prozac. Patient denies any history of manic episodes or symptoms. Discussed cocaine abuse and says it is usually only a few times a month at most. Discussed long history of unprocessed trauma and how it is no longer able to be ignored 02/02 patient remains very depressed; worries she is going crazy due to AH which remain during dreams or when she is waking up and continued to be mood congruent. Patient shared details about her history of trauma which she has never processed. Patient starting to make connections between current symptoms and history. 02/03, patient remains depressed with intermittent AH; reports history of dystonic reaction x4 from antipsychotic and does not want to risk 5th time. 02/04 patient agrees to try BuSpar 02/05 continue treatment plan Impression: AH seems most likely mood congruent due to worsening depression and PTSD; AH happens mostly during nightmares; daytime occurrences are during a dissociative episode. No associated manic symptoms with increased Prozac. -Given that this is most likely mood congruent AH and Since patient has tolerated Prozac, (and is hesitant to try antipsychotics) will titrate Prozac to 60 mg (patient was taking 40 mg up until day of admission was lowered to 20 mg); discussed risks and side effects of this approach which patient agrees with and accepts. Dx: MDD, recurrent, severe with psychotic features PTSD exacerbation with dissociative episodes PLAN: Admit to M5 CV Continue Prozac to 60 mg daily Trial of BuSpar Schedule clonidine 0.05 mg q.h.s. for trouble with sleep and nightmares (prazosin causes headache) DC Thorazine; patient decided does not want to Consider Lamictal... Consider lithium which patient says caused no problems last time she tried it; not sure if it helped otherwise: Milieu therapy Aftercare plan with therapist medication history: -Risperdal caused dystonia -Seroquel caused excessive sedation -[place] had no side effects however she can not remember if it was helpful or not. -prazosin causes headache -Wellbutrin, Celexa, Remeron, trazodone:? Patient says that either did not work or adverse reaction Reason for continued inpatient stay Substantial Risk for: harm to self, inability to function and rapid decompensation Time Spent With Patient Time: Total time managing care of this patient today ____ minutes.
[2023-02-05] MEDS: cloNIDine HCL 0.1 MG TABLET 0.05 MG PO ×2 (17:06→18:15)
[2023-02-05 18:00] VITALS: BP 132/81; PULSE 59
[2023-02-05] MEDS: Zolpidem Tartrate 5 MG TABLET 10 MG PO (18:14)
[2023-02-06] MEDS: Gabapentin 100 MG CAPSULE PO ×3 (08:39→20:09)
[2023-02-06] MEDS: Ferrous Sulfate 324 MG TABLET.DR PO (08:39)
[2023-02-06] MEDS: Ascorbic Acid 500 MG TABLET PO (08:39)
[2023-02-06] MEDS: FLUoxetine HCl 20 MG CAPSULE 60 MG PO (08:39)
[2023-02-06] MEDS: methADONE HCl 20 MG/2 ML ORAL.CONC 125 MG PO (08:41)
[2023-02-06 08:59] VITALS: BP 122/77; PULSE 75; RESP 16; TEMP 36.6; O2SAT 99
--- NOTE | 2023-02-06 11:33 | P.PNPSI_ITS ---
Subjective Subjective Date of Service: 02/06/23 Reason For Visit: Suicidal ideation Subjective Notes: Conditional Voluntary Medical Problems Affecting Mental Status: No Interim History: Patient reports very anxious at times in response to high level of activity and noise on unit; she remains depressed and has intermittent AH. She is very anxious about AH and nightmares. She is tolerating buspar but no relief at this time; She requests prn ativan until buspar can be reassessed. No SI Medication Compliance: Yes Side effects from medications: No Attending Groups: Yes Review of Systems Acute medical concerns: No Medical Review of Systems: unchanged Review of Systems Review of Systems Constitutional : No Weight loss, No Fever, No Chills, No Fatigue, No Malaise ENT/Mouth : No sore throat, No Rhinorrhea Eyes: No Eye Pain, No Swelling, No Redness Cardiovascular : No Chest Pain, No SOB, No Dyspnea on Exertion, No Orthopnea, No Edema, No Palpitations Respiratory : No Cough, No Sputum, No Wheezing Gastrointestinal : No Nausea, No Vomiting, No Diarrhea, No Constipation, No abdominal Pain, No Hematochezia, No Melena Genitourinary : No Dysuria, No Urinary Frequency, No Hematuria, Musculoskeletal : No joint pain, No Myalgias, No Joint Swelling Skin : No Skin Lesions, No rash Neuro : No Weakness, No Numbness, No Dizziness, No Headache Psych : + Anxiety/Panic, + Depression, + SI All other systems reviewed and are negative Yes all other systems are reviewed and are negative Mental Status Exam Mental Status Exam Narrative: Pt is alert and oriented; behavior is cooperative, anxious, shaking at times; appropriately dressed in casual attire, well groomed; mood is described as same and affect congruent, downcast; eye contact appropriate; Speech is normal rate, volume and prosody and not pressured; some psychomotor retardation present; thought process is organized and goal directed; Thought content is dealing with depression, symptoms, anxious about AH; otherwise pertinent to relevant topics and without any delusional content, paranoid ideations or grandiosity; no SI; no HI. Positive for AH Patients insight and judgment impaired Patient Appearance: Well Grooomed and Appropriate Patient Orientation: Person, Place, Time and Situation Level of Consciousness: Awake and Alert Patient Behavior: Appropriate, Timid, Anxious, Fearful and Good Eye Contact Mood Description: Constricted, Fearful, Anxious and Nervous Affect Description: Anxious Ability to Follow Directions: Excellent Speech Pattern: Clear Memory Description: Intact Diagnostics Vital Signs (24Hr): Vital Signs - 24 hr 02/05/23 18:00 02/06/23 08:59 Temperature 97.8 F Pulse Rate 59 75 Respiratory Rate 16 Blood Pressure 132/81 122/77 Pulse Oximetry 99 Oxygen Delivery Method Room Air BMI result Body Mass Index 24.7 Labs 01/28/23 17:40 01/30/23 07:14 Medications Medications Current Medications Acetaminophen (Acetaminophen 325 Mg Tablet) 650 mg PO Q6H PRN PRN Reason: Headache/Pain Mild Scale (1-3) Last Admin: 02/03/23 11:24 Dose: 650 mg Al Hydroxide/Mg Hydroxide (Magnesium Hydrox/Alum Hydrox 30 Ml Oral.Susp) 30 ml PO Q6H PRN PRN Reason: Heartburn/Nausea Ascorbic Acid (Ascorbic Acid 500 Mg Tablet) 500 mg PO DAILY [facility] Last Admin: 02/06/23 08:39 Dose: 500 mg Benztropine Mesylate (Benztropine Mesylate 1 Mg Tablet) 1 mg PO TID PRN PRN Reason: EPS/Dystonia Buspirone HCl (Buspirone Hcl 5 Mg Tablet) 5 mg PO TID [facility] Last Admin: 02/06/23 09:12 Dose: Not Given Clonidine HCl (Clonidine Hcl 0.1 Mg Tablet) 0.05 mg PO BEDTIME [facility]; Protocol Last Admin: 02/05/23 18:15 Dose: 0.05 mg Clonidine HCl (Clonidine Hcl 0.1 Mg Tablet) 0.05 mg PO Q4H PRN; Protocol PRN Reason: anxiety Last Admin: 02/05/23 17:06 Dose: 0.05 mg Ferrous Sulfate (Ferrous Sulfate 324 Mg Tablet.Dr) 324 mg PO DAILY [facility] Last Admin: 02/06/23 08:39 Dose: 324 mg Fluoxetine HCl (Fluoxetine Hcl 20 Mg Capsule) 60 mg PO DAILY [facility] Last Admin: 02/06/23 08:39 Dose: 60 mg Gabapentin (Gabapentin 100 Mg Capsule) 100 mg PO TID [facility] Last Admin: 02/06/23 08:39 Dose: 100 mg Ibuprofen (Ibuprofen 600 Mg Tablet) 600 mg PO Q8H PRN PRN Reason: Pain, Mild (Pain Scale 1-3) Last Admin: 02/05/23 08:04 Dose: 600 mg Lorazepam (Lorazepam 1 Mg Tablet) 1 mg PO BID PRN PRN Reason: anxiety Last Admin: 02/05/23 18:14 Dose: 1 mg Magnesium Hydroxide (Milk Of Magnesia 30 Ml Oral.Susp) 30 ml PO DAILY PRN PRN Reason: Constipation Last Admin: 02/04/23 16:28 Dose: 30 ml Methadone HCl (Methadone Hcl 20 Mg/2 Ml Oral.Conc) 125 mg PO DAILY [facility] Last Admin: 02/06/23 08:41 Dose: 125 mg Pharmacy Consult (Consult Rx Perform Med Rec) 1 each MISCELLANE ONCE PRN PRN Reason: Consult order Senna/Docusate Sodium (Sennosides/Docusate Sodium Tablet) 1 tab PO DAILY PRN PRN Reason: constipation Last Admin: 02/04/23 20:14 Dose: 1 tab Sumatriptan Succinate (Sumatriptan Succinate 50 Mg Tablet) 50 mg PO DAILY PRN PRN Reason: migraine Zolpidem Tartrate (Zolpidem Tartrate 5 Mg Tablet) 10 mg PO BEDTIME PRN PRN Reason: Insomnia Last Admin: 02/05/23 18:14 Dose: 10 mg Allergies Allergies Allergy/AdvReac Type Severity Reaction Status Date / Time diphenhydramine Allergy Severe RASH Verified 12/26/22 21:20 [From BENADRYL] trazodone [TRAZODONE] AdvReac Severe DYSTONIC Verified 12/26/22 21:20 risperidone [Risperdal] AdvReac Unknown Dystonia Verified 12/26/22 21:20 Assessment & Plan Assessment & Plan (1) MDD (major depressive disorder), recurrent episode, severe: Status: Acute Code(s): F33.2 - Major depressive disorder, recurrent severe without psychotic features (2) PTSD (post-traumatic stress disorder): Status: Acute Code(s): F43.10 - Post-traumatic stress disorder, unspecified (3) Opioid use disorder: Status: Acute Code(s): F11.90 - Opioid use, unspecified, uncomplicated (4) Cocaine use disorder: Status: Acute Code(s): F14.10 - Cocaine abuse, uncomplicated Plan 47 year old female with a history of PTSD, depression, polysubstance use dis order including opioids on methadone, presents with increased depression and subacute onset of CAH to cut herself. Patient has had at least 3 recent psychiatric admissions for increased depression but her AH are new to her per her report. Self harm had been quiescent since adolescence. Hospital course: 02/01 Patient reports continued depression. Continued intermittent auditory hallucinations however they mostly occur during dreams; they do happen during the daytime but patient says that she will be doing something mundane, like watching television and then zone out and when zoned out she will hear a voice saying negative things like kill yourself, you are worthless... etc.. It is 1 voice that she does not recognize. Patient knows it is not real and that it is just a hallucination however it is so bothersome that she started superficially cutting to distract herself. Patient reports she has never had auditory hallucinations before. But she reports history of zoning out which sounds like dissociative episodes. Patient anxious about taking antipsychotic medications saying she has had numerous negative side effects from medications including dystonic reaction. She is amenable to medication management however. Patient shared recent history and said that after admission on M5 she did okay for a little while but got depressed again and was readmitted to 3; she said Prozac increased however depression and anxiety remained. She does not think that auditory hallucinations coincide with increased Prozac. Patient denies any history of manic episodes or symptoms. Discussed cocaine abuse and says it is usually only a few times a month at most. Discussed long history of unprocessed trauma and how it is no longer able to be ignored 02/02 patient remains very depressed; worries she is going crazy due to AH which remain during dreams or when she is waking up and continued to be mood congruent. Patient shared details about her history of trauma which she has never processed. Patient starting to make connections between current symptoms and history. 02/03, patient remains depressed with intermittent AH; reports history of dystonic reaction x4 from antipsychotic and does not want to risk 5th time. 02/04 patient agrees to try BuSpar 02/05 continue treatment plan 02/06/23 add ativan 1 mg qd prn anxiety Impression: AH seems most likely mood congruent due to worsening depression and PTSD; AH happens mostly during nightmares; daytime occurrences are during a dissociative episode. No associated manic symptoms with increased Prozac. -Given that this is most likely mood congruent AH and Since patient has tolerate d Prozac, (and is hesitant to try antipsychotics) will titrate Prozac to 60 mg (patient was taking 40 mg up until day of admission was lowered to 20 mg); discussed risks and side effects of this approach which patient agrees with and accepts. Dx: MDD, recurrent, severe with psychotic features PTSD exacerbation with dissociative episodes PLAN: Admit to M5 CV Continue Prozac to 60 mg daily Trial of BuSpar Schedule clonidine 0.05 mg q.h.s. for trouble with sleep and nightmares (prazosin causes headache) DC Thorazine; patient decided does not want to Consider Lamictal... Consider lithium which patient says caused no problems last time she tried it; not sure if it helped otherwise: Milieu therapy Aftercare plan with therapist medication history: -Risperdal caused dystonia -Seroquel caused excessive sedation -[place] had no side effects however she can not remember if it was helpful or not. -prazosin causes headache -Wellbutrin, Celexa, Remeron, trazodone:? Patient says that either did not work or adverse reaction Reason for continued inpatient stay Substantial Risk for: harm to self, inability to function and rapid decompensation Time Spent With Patient Time: Total time managing care of this patient today ____ minutes.
[2023-02-06] MEDS: LORazepam 1 MG TABLET PO ×3 (11:55→20:51)
[2023-02-06] MEDS: Acetaminophen 325 MG TABLET 650 MG PO (15:00)
[2023-02-06 18:00] VITALS: BP 132/76; PULSE 70; RESP 16; TEMP 36.8; O2SAT 100
[2023-02-06] MEDS: cloNIDine HCL 0.1 MG TABLET 0.05 MG PO (20:09)
[2023-02-06] MEDS: Zolpidem Tartrate 5 MG TABLET 10 MG PO (20:52)
[2023-02-07 06:00] VITALS: BP 154/82; PULSE 74; RESP 16; TEMP 36.6; O2SAT 99
[2023-02-07] MEDS: FLUoxetine HCl 20 MG CAPSULE 60 MG PO (08:37)
[2023-02-07] MEDS: Ibuprofen 600 MG TABLET PO (08:37)
[2023-02-07] MEDS: Gabapentin 100 MG CAPSULE PO ×3 (08:38→19:59)
[2023-02-07] MEDS: Ferrous Sulfate 324 MG TABLET.DR PO (08:38)
[2023-02-07] MEDS: Ascorbic Acid 500 MG TABLET PO (08:38)
[2023-02-07] MEDS: LORazepam 1 MG TABLET PO ×3 (08:38→20:00)
[2023-02-07] MEDS: methADONE HCl 20 MG/2 ML ORAL.CONC 125 MG PO (08:41)
--- NOTE | 2023-02-07 10:35 | P.PNPSI_ITS ---
Subjective Subjective Date of Service: 02/07/23 Reason For Visit: Suicidal ideation Interim History: Met with patient; discussed with team Patient reports continued intermittent AH saying mean things. She says the voice is not worse and part of her wonders of hurts her own thoughts however remains bothersome and patient is hesitant to discharge until it is resolved. Patient refused BuSpar saying a cause some shaky tremor. She agrees to restart lithium however since she tolerated the past. Patient reports she started her menses in the 1st 2 days she is usually very emotionally distraught. Patient denies any SI however and despite voices has no intention or thoughts of hurting herself. Mental Status Exam Mental Status Exam Narrative: Pt is alert and oriented; behavior is cooperative, calm, tearful; appropriately dressed in casual attire, well groomed; mood is described as depressed and affect congruent, downcast; eye contact appropriate; Speech is normal rate, volume and prosody and not pressured; some psychomotor retardation present; thought process is organized and goal directed; Thought content is dealing with depression, symptoms, anxious about AH; otherwise pertinent to relevant topics and without any delusional content, paranoid ideations or grandiosity; no SI; no HI. Positive for AH Patients insight and judgment impaired but adequate. Diagnostics Vital Signs (24Hr): Vital Signs - 24 hr 02/06/23 18:00 02/07/23 06:00 Temperature 98.2 F 97.9 F Pulse Rate 70 74 Respiratory Rate 16 16 Blood Pressure 132/76 154/82 H Pulse Oximetry 100 99 Oxygen Delivery Method Room Air Room Air BMI result Body Mass Index 24.7 Labs 01/28/23 17:40 01/30/23 07:14 Medications Medications Current Medications Acetaminophen (Acetaminophen 325 Mg Tablet) 650 mg PO Q6H PRN PRN Reason: Headache/Pain Mild Scale (1-3) Last Admin: 02/06/23 15:00 Dose: 650 mg Al Hydroxide/Mg Hydroxide (Magnesium Hydrox/Alum Hydrox 30 Ml Oral.Susp) 30 ml PO Q6H PRN PRN Reason: Heartburn/Nausea Ascorbic Acid (Ascorbic Acid 500 Mg Tablet) 500 mg PO DAILY [facility] Last Admin: 02/07/23 08:38 Dose: 500 mg Benztropine Mesylate (Benztropine Mesylate 1 Mg Tablet) 1 mg PO TID PRN PRN Reason: EPS/Dystonia Buspirone HCl (Buspirone Hcl 5 Mg Tablet) 5 mg PO TID [facility] Last Admin: 02/07/23 08:46 Dose: Not Given Clonidine HCl (Clonidine Hcl 0.1 Mg Tablet) 0.05 mg PO BEDTIME [facility]; Protocol Last Admin: 02/06/23 20:09 Dose: 0.05 mg Clonidine HCl (Clonidine Hcl 0.1 Mg Tablet) 0.05 mg PO Q4H PRN; Protocol PRN Reason: anxiety Last Admin: 02/05/23 17:06 Dose: 0.05 mg Ferrous Sulfate (Ferrous Sulfate 324 Mg Tablet.Dr) 324 mg PO DAILY [facility] Last Admin: 02/07/23 08:38 Dose: 324 mg Fluoxetine HCl (Fluoxetine Hcl 20 Mg Capsule) 60 mg PO DAILY [facility] Last Admin: 02/07/23 08:37 Dose: 60 mg Gabapentin (Gabapentin 100 Mg Capsule) 100 mg PO TID [facility] Last Admin: 02/07/23 08:38 Dose: 100 mg Ibuprofen (Ibuprofen 600 Mg Tablet) 600 mg PO Q8H PRN PRN Reason: Pain, Mild (Pain Scale 1-3) Last Admin: 02/07/23 08:37 Dose: 600 mg Lorazepam (Lorazepam 1 Mg Tablet) 1 mg PO BID PRN PRN Reason: anxiety Last Admin: 02/06/23 20:51 Dose: 1 mg Lorazepam (Lorazepam 1 Mg Tablet) 1 mg PO DAILY PRN PRN Reason: Anxiety Last Admin: 02/07/23 08:38 Dose: 1 mg Magnesium Hydroxide (Milk Of Magnesia 30 Ml Oral.Susp) 30 ml PO DAILY PRN PRN Reason: Constipation Last Admin: 02/04/23 16:28 Dose: 30 ml Methadone HCl (Methadone Hcl 20 Mg/2 Ml Oral.Conc) 125 mg PO DAILY [facility] Last Admin: 02/07/23 08:41 Dose: 125 mg Pharmacy Consult (Consult Rx Perform Med Rec) 1 each MISCELLANE ONCE PRN PRN Reason: Consult order Senna/Docusate Sodium (Sennosides/Docusate Sodium Tablet) 1 tab PO DAILY PRN PRN Reason: constipation Last Admin: 02/04/23 20:14 Dose: 1 tab Sumatriptan Succinate (Sumatriptan Succinate 50 Mg Tablet) 50 mg PO DAILY PRN PRN Reason: migraine Zolpidem Tartrate (Zolpidem Tartrate 5 Mg Tablet) 10 mg PO BEDTIME PRN PRN Reason: Insomnia Last Admin: 02/06/23 20:52 Dose: 10 mg Allergies Allergies Allergy/AdvReac Type Severity Reaction Status Date / Time diphenhydramine Allergy Severe RASH Verified 12/26/22 21:20 [From BENADRYL] trazodone [TRAZODONE] AdvReac Severe DYSTONIC Verified 12/26/22 21:20 risperidone [Risperdal] AdvReac Unknown Dystonia Verified 12/26/22 21:20 Assessment & Plan Assessment & Plan (1) MDD (major depressive disorder), recurrent episode, severe: Status: Acute Code(s): F33.2 - Major depressive disorder, recurrent severe without psychotic features (2) PTSD (post-traumatic stress disorder): Status: Acute Code(s): F43.10 - Post-traumatic stress disorder, unspecified (3) Opioid use disorder: Status: Acute Code(s): F11.90 - Opioid use, unspecified, uncomplicated (4) Cocaine use disorder: Status: Acute Code(s): F14.10 - Cocaine abuse, uncomplicated Plan 47 year old female with a history of PTSD, depression, polysubstance use disorder including opioids on methadone, presents with increased depression and subacute onset of CAH to cut herself. Patient has had at least 3 recent psychiatric admissions for increased depression but her AH are new to her per her report. Self harm had been quiescent since adolescence. Hospital course: 02/01 Patient reports continued depression. Continued intermittent auditory hallucinations however they mostly occur during dreams; they do happen during the daytime but patient says that she will be doing something mundane, like watching television and then zone out and when zoned out she will hear a voice saying negative things like kill yourself, you are worthless... etc.. It is 1 voice that she does not recognize. Patient knows it is not real and that it is just a hallucination however it is so bothersome that she started superficially cutting to distract herself. Patient reports she has never had auditory hallucinations before. But she reports history of zoning out which sounds like dissociative episodes. Patient anxious about taking antipsychotic medications saying she has had numerous negative side effects from medications including dystonic reaction. She is amenable to medication management however. Patient shared recent history and said that after admission on M5 she did okay for a little while but got depressed again and was readmitted to M 3; she said Prozac increased however depression and anxiety remained. She does not think that auditory hallucinations coincide with increased Prozac. Patient denies any history of manic episodes or symptoms. Discussed cocaine abuse and says it is usually only a few times a month at most. Discussed long history of unprocessed trauma and how it is no longer able to be ignored 02/02 patient remains very depressed; worries she is going crazy due to AH which remain during dreams or when she is waking up and continued to be mood congruent. Patient shared details about her history of trauma which she has never processed. Patient starting to make connections between current symptoms and history. 02/03, patient remains depressed with intermittent AH; reports history of dystonic reaction x4 from antipsychotic and does not want to risk 5th time. 02/04 patient agrees to try BuSpar 02/05 continue treatment plan 02/06/23 add ativan 1 mg qd prn anxiety Impression: AH seems most likely mood congruent due to worsening depression and PTSD; AH happens mostly during nightmares; daytime occurrences are during a dissociative episode. No associated manic symptoms with increased Prozac. -Given that this is most likely mood congruent AH and Since patient has tolerated Prozac, (and is hesitant to try antipsychotics) will titrate Prozac to 60 mg (patient was taking 40 mg up until day of admission was lowered to 20 mg); discussed risks and side effects of this approach which patient agrees with and accepts. 02/07 Will start lithium; no changes in symptoms and patient remains resistant to trying most medications. She continues to report no SI. At past admission it seemed that Prozac was helpful; however at higher dose it does not seem to have made any difference. Since started lithium will keep Prozac as is but would also consider either changing to another antidepressant or possibly restarting Lamictal in its place. Dx: MDD, recurrent, severe with psychotic features PTSD exacerbation with dissociative episodes PLAN: Admit to M5 CV START [place] [facility] 300mg qhs as augmentation Continue Prozac to 60 mg daily Schedule clonidine 0.05 mg q.h.s. for trouble with sleep and nightmares (prazosin causes headache) DC Thorazine; patient decided does not want to Consider Lamictal... Consider lithium which patient says caused no problems last time she tried it; not sure if it helped otherwise: Milieu therapy Aftercare plan with therapist medication history: -Risperdal caused dystonia -Seroquel caused excessive sedation -[place] had no side effects however she can not remember if it was helpful or not. -prazosin causes headache -Wellbutrin, Celexa, Remeron, trazodone:? Patient says that either did not work or adverse reaction Patient educated on: diagnosis and medication risk/benefits Informed Consent: understands Reason for continued inpatient stay Substantial Risk for: rapid decompensation Time Spent With Patient Time: Total time managing care of this patient today ____ minutes.
[2023-02-07] MEDS: Lithium Carbonate ER 300 MG TABLET.ER PO (14:06)
[2023-02-07 19:50] VITALS: BP 105/63; PULSE 69; TEMP 36.6
[2023-02-07] MEDS: cloNIDine HCL 0.1 MG TABLET 0.05 MG PO (19:58)
[2023-02-07] MEDS: Acetaminophen 325 MG TABLET 650 MG PO (19:59)
[2023-02-07] MEDS: Sennosides/Docusate Sodium TABLET 1 TAB PO (19:59)
[2023-02-07] MEDS: Zolpidem Tartrate 5 MG TABLET 10 MG PO (19:59)
[2023-02-08 06:00] VITALS: BP 121/79; PULSE 67; RESP 16; TEMP 36.6
[2023-02-08] MEDS: FLUoxetine HCl 20 MG CAPSULE 60 MG PO (09:16)
[2023-02-08] MEDS: Ferrous Sulfate 324 MG TABLET.DR PO (09:17)
[2023-02-08] MEDS: Gabapentin 100 MG CAPSULE PO ×3 (09:17→19:52)
[2023-02-08] MEDS: Ascorbic Acid 500 MG TABLET PO (09:17)
[2023-02-08] MEDS: LORazepam 1 MG TABLET PO ×2 (09:17→18:05)
[2023-02-08] MEDS: Ibuprofen 600 MG TABLET PO ×2 (09:17→19:54)
[2023-02-08] MEDS: methADONE HCl 20 MG/2 ML ORAL.CONC 125 MG PO (09:17)
--- NOTE | 2023-02-08 10:17 | P.PNPSI_ITS ---
Subjective Subjective Date of Service: 02/08/23 Reason For Visit: Suicidal ideation Subjective Notes: Conditional Voluntary Interim History: Reviewed in team and with Dr. Kahn. Patient reports feeling okay today. Pt stated, I didn't get any side effects from the lithium, which is what I was worried about with starting a new medication. I want to give lithium a chance . Patient reports having auditory hallucination at this time. Patient stated, the voices come and go throughout the day; they tell me to kill myself. I'm trying to figure out if it's my t houghts or voices. Patient denies SI/HI/VH at this time. Medication Compliance: Yes Side effects from medications: No Attending Groups: Intermittent Review of Systems Review of Systems Constitutional : No Weight loss, No Fever, No Chills, No Fatigue, No Malaise ENT/Mouth : No sore throat, No Rhinorrhea Eyes: No Eye Pain, No Swelling, No Redness Cardiovascular : No Chest Pain, No SOB, No Dyspnea on Exertion, No Orthopnea, No Edema, No Palpitations Respiratory : No Cough, No Sputum, No Wheezing Gastrointestinal : No Nausea, No Vomiting, No Diarrhea, No Constipation, No abdominal Pain, No Hematochezia, No Melena Genitourinary : No Dysuria, No Urinary Frequency, No Hematuria, Musculoskeletal : No joint pain, No Myalgias, No Joint Swelling Skin : No Skin Lesions, No rash Neuro : No Weakness, No Numbness, No Dizziness, No Headache Psych : + Anxiety/Panic, + Depression, + SI All other systems reviewed and are negative Yes all other systems are reviewed and are negative Mental Status Exam Mental Status Exam Narrative: Pt is alert and oriented; behavior is cooperative, calm; appropriately dressed in casual attire, well groomed; mood is described as okay ; eye contact appropriate; Speech is normal rate, volume and prosody and not pressured; some psychomotor retardation present; thought process is organized and goal directed; Thought content is dealing with depression, symptoms, anxious about AH; otherwise pertinent to relevant topics and without any delusional content, paranoid ideations or grandiosity; no SI; no HI. Positive for AH. Patients insight and judgment impaired but adequate. Affect Description: Anxious Diagnostics Vital Signs (24Hr): Vital Signs - 24 hr 02/07/23 19:50 02/08/23 06:00 Temperature 97.9 F 98 F Pulse Rate 69 67 Respiratory Rate 16 Blood Pressure 105/63 121/79 BMI result Body Mass Index 24.7 Labs 01/28/23 17:40 01/30/23 07:14 Medications Medications Current Medications Acetaminophen (Acetaminophen 325 Mg Tablet) 650 mg PO Q6H PRN PRN Reason: Headache/Pain Mild Scale (1-3) Last Admin: 02/07/23 19:59 Dose: 650 mg Al Hydroxide/Mg Hydroxide (Magnesium Hydrox/Alum Hydrox 30 Ml Oral.Susp) 30 ml PO Q6H PRN PRN Reason: Heartburn/Nausea Ascorbic Acid (Ascorbic Acid 500 Mg Tablet) 500 mg PO DAILY YESENIA Last Admin: 02/08/23 09:17 Dose: 500 mg Benztropine Mesylate (Benztropine Mesylate 1 Mg Tablet) 1 mg PO TID PRN PRN Reason: EPS/Dystonia Clonidine HCl (Clonidine Hcl 0.1 Mg Tablet) 0.05 mg PO BEDTIME YESENIA; Protocol Last Admin: 02/07/23 19:58 Dose: 0.05 mg Clonidine HCl (Clonidine Hcl 0.1 Mg Tablet) 0.05 mg PO Q4H PRN; Protocol PRN Reason: anxiety Last Admin: 02/05/23 17:06 Dose: 0.05 mg Ferrous Sulfate (Ferrous Sulfate 324 Mg Tablet.Dr) 324 mg PO DAILY YESENIA Last Admin: 02/08/23 09:17 Dose: 324 mg Fluoxetine HCl (Fluoxetine Hcl 20 Mg Capsule) 60 mg PO DAILY YESENIA Last Admin: 02/08/23 09:16 Dose: 60 mg Gabapentin (Gabapentin 100 Mg Capsule) 100 mg PO TID YESENIA Last Admin: 02/08/23 09:17 Dose: 100 mg Ibuprofen (Ibuprofen 600 Mg Tablet) 600 mg PO Q8H PRN PRN Reason: Pain, Mild (Pain Scale 1-3) Last Admin: 02/08/23 09:17 Dose: 600 mg [place] Carbonate ([place] Carbonate Er 300 Mg Tablet.Er) 300 mg PO BEDTIME YESENIA Lorazepam (Lorazepam 1 Mg Tablet) 1 mg PO TID PRN PRN Reason: anxiety Last Admin: 02/08/23 09:17 Dose: 1 mg Magnesium Hydroxide (Milk Of Magnesia 30 Ml Oral.Susp) 30 ml PO DAILY PRN PRN Reason: Constipation Last Admin: 02/04/23 16:28 Dose: 30 ml Methadone HCl (Methadone Hcl 20 Mg/2 Ml Oral.Conc) 125 mg PO DAILY YESENIA Last Admin: 02/08/23 09:17 Dose: 125 mg Pharmacy Consult (Consult Rx Perform Med Rec) 1 each MISCELLANE ONCE PRN PRN Reason: Consult order Senna/Docusate Sodium (Sennosides/Docusate Sodium Tablet) 1 tab PO DAILY PRN PRN Reason: constipation Last Admin: 02/07/23 19:59 Dose: 1 tab Sumatriptan Succinate (Sumatriptan Succinate 50 Mg Tablet) 50 mg PO DAILY PRN PRN Reason: migraine Zolpidem Tartrate (Zolpidem Tartrate 5 Mg Tablet) 10 mg PO BEDTIME PRN PRN Reason: Insomnia Last Admin: 02/07/23 19:59 Dose: 10 mg Allergies Allergies Allergy/AdvReac Type Severity Reaction Status Date / Time diphenhydramine Allergy Severe RASH Verified 12/26/22 21:20 [From BENADRYL] trazodone [TRAZODONE] AdvReac Severe DYSTONIC Verified 12/26/22 21:20 risperidone [Risperdal] AdvReac Unknown Dystonia Verified 12/26/22 21:20 Assessment & Plan Assessment & Plan (1) MDD (major depressive disorder), recurrent episode, severe: Status: Acute Code(s): F33.2 - Major depressive disorder, recurrent severe without psychotic features (2) PTSD (post-traumatic stress disorder): Status: Acute Code(s): F43.10 - Post-traumatic stress disorder, unspecified (3) Opioid use disorder: Status: Acute Code(s): F11.90 - Opioid use, unspecified, uncomplicated (4) Cocaine use disorder: Status: Acute Code(s): F14.10 - Cocaine abuse, uncomplicated Plan 47 year old female with a history of PTSD, depression, polysubstance use disorder including opioids on methadone, presents with increased depression and subacute onset of CAH to cut herself. Patient has had at least 3 recent psychiatric admissions for increased depression but her AH are new to her per her report. Self harm had been quiescent since adolescence. Hospital course: 02/01 Patient reports continued depression. Continued intermittent auditory hallucinations however they mostly occur during dreams; they do happen during the daytime but patient says that she will be doing something mundane, like watching television and then zone out and when zoned out she will hear a voice saying negative things like kill yourself, you are worthless... etc.. It is 1 voice that she does not recognize. Patient knows it is not real and that it is just a hallucination however it is so bothersome that she started superficially cutting to distract herself. Patient reports she has never had auditory hallucinations before. But she reports history of zoning out which sounds like dissociative episodes. Patient anxious about taking antipsychotic medications saying she has had numerous negative side effects from medications including dystonic reaction. She is amenable to medication management however. Patient shared recent history and said that after admission on M5 she did okay for a little while but got depressed again and was readmitted to M 3; she said Prozac increased however depression and anxiety remained. She does not think that auditory hallucinations coincide with increased Prozac. Patient denies any history of manic episodes or symptoms. Discussed cocaine abuse and says it is usually only a few times a month at most. Discussed long history of unprocessed trauma and how it is no longer able to be ignored 02/02 patient remains very depressed; worries she is going crazy due to AH which remain during dreams or when she is waking up and continued to be mood congruent. Patient shared details about her history of trauma which she has never processed. Patient starting to make connections between current symptoms and history. 02/03, patient remains depressed with intermittent AH; reports history of dystonic reaction x4 from antipsychotic and does not want to risk 5th time. 02/04 patient agrees to try BuSpar 02/05 continue treatment plan 02/06/23 add ativan 1 mg qd prn anxiety Impression: AH seems most likely mood congruent due to worsening depression and PTSD; AH happens mostly during nightmares; daytime occurrences are during a dissociative episode. No associated manic symptoms with increased Prozac. -Given that this is most likely mood congruent AH and Since patient has tolerated Prozac, (and is hesitant to try antipsychotics) will titrate Prozac to 60 mg (patient was taking 40 mg up until day of admission was lowered to 20 mg); discussed risks and side effects of this approach which patient agrees with and accepts. 02/07 Will start lithium; no changes in symptoms and patient remains resistant to trying most medications. She continues to report no SI. At past admission it seemed that Prozac was helpful; however at higher dose it does not seem to have made any difference. Since started lithium will keep Prozac as is but would also consider either changing to another antidepressant or possibly restarting Lamictal in its place. 02/08: Patient denies having any side effects from lithium. She is hopeful regarding this medication. Continues to have AH throughout the day. Continue w ith current treatment plan. Dx: MDD, recurrent, severe with psychotic features PTSD exacerbation with dissociative episodes PLAN: Admit to M5 CV START [place] ER 300mg qhs as augmentation Continue Prozac to 60 mg daily Schedule clonidine 0.05 mg q.h.s. for trouble with sleep and nightmares (prazosin causes headache) DC Thorazine; patient decided does not want to Consider Lamictal... Consider lithium which patient says caused no problems last time she tried it; not sure if it helped otherwise: Milieu therapy Aftercare plan with therapist medication history: -Risperdal caused dystonia -Seroquel caused excessive sedation -[place] had no side effects however she can not remember if it was helpful or not. -prazosin causes headache -Wellbutrin, Celexa, Remeron, trazodone:? Patient says that either did not work or adverse reaction Patient educated on: diagnosis, medication risk/benefits and therapeutic strategies Informed Consent: understands Reason for continued inpatient stay Substantial Risk for: med/psych decompensation Time Spent With Patient Time: Total time managing care of this patient today ____ minutes.
[2023-02-08 19:43] VITALS: BP 104/60; PULSE 75; TEMP 36.4
[2023-02-08] MEDS: cloNIDine HCL 0.1 MG TABLET 0.05 MG PO (19:52)
[2023-02-08] MEDS: Sennosides/Docusate Sodium TABLET 1 TAB PO (19:52)
[2023-02-08] MEDS: Lithium Carbonate ER 300 MG TABLET.ER PO (19:52)
[2023-02-08] MEDS: Zolpidem Tartrate 5 MG TABLET 10 MG PO (19:54)
[2023-02-09 08:25] VITALS: BP 125/80; PULSE 70; RESP 18; TEMP 36.3; O2SAT 99
[2023-02-09] MEDS: FLUoxetine HCl 20 MG CAPSULE 60 MG PO (08:27)
[2023-02-09] MEDS: Ascorbic Acid 500 MG TABLET PO (08:28)
[2023-02-09] MEDS: Ferrous Sulfate 324 MG TABLET.DR PO (08:28)
[2023-02-09] MEDS: methADONE HCl 20 MG/2 ML ORAL.CONC 125 MG PO (08:28)
[2023-02-09] MEDS: Gabapentin 100 MG CAPSULE PO ×3 (08:28→20:20)
[2023-02-09] MEDS: LORazepam 1 MG TABLET PO ×3 (09:08→20:21)
[2023-02-09] MEDS: Ibuprofen 600 MG TABLET PO (09:08)
--- NOTE | 2023-02-09 15:14 | HO.PSYCHPN ---
Subjective Subjective Date of Service: 02/09/23 Reason For Visit: Suicidal ideation Subjective Notes: Conditional Voluntary Interim History: Reviewed in team and with Dr. Kahn. Patient reports feeling blah today. Pt stated, I got my period today so I'm just feeling blah about everything . Patient denies auditory hallucination at this time. Patient stated, I haven't had any voices yet today. Patient denies SI/HI/VH at this time. Medication Compliance: Yes Side effects from medications: No Attending Groups: Intermittent Review of Systems Review of Systems Constitutional : No Weight loss, No Fever, No Chills, No Fatigue, No Malaise ENT/Mouth : No sore throat, No Rhinorrhea Eyes: No Eye Pain, No Swelling, No Redness Cardiovascular : No Chest Pain, No SOB, No Dyspnea on Exertion, No Orthopnea, No Edema, No Palpitations Respiratory : No Cough, No Sputum, No Wheezing Gastrointestinal : No Nausea, No Vomiting, No Diarrhea, No Constipation, No abdominal Pain, No Hematochezia, No Melena Genitourinary : No Dysuria, No Urinary Frequency, No Hematuria, Musculoskeletal : No joint pain, No Myalgias, No Joint Swelling Skin : No Skin Lesions, No rash Neuro : No Weakness, No Numbness, No Dizziness, No Headache Psych : + Anxiety/Panic, + Depression, + SI All other systems reviewed and are negative Yes all other systems are reviewed and are negative Mental Status Exam Mental Status Exam Narrative: Pt is alert and oriented; behavior is cooperative, calm; appropriately dressed in casual attire, well groomed; mood is described as blah ; eye contact appropriate; Speech is normal rate, volume and prosody and not pressured; some psychomotor retardation present; thought process is organized and goal directed; Thought content is dealing with depression, symptoms, anxious about AH; otherwise pertinent to relevant topics and without any delusional content, paranoid ideations or grandiosity;denies SI/HI/VH/AH. Patients insight and judgment impaired but adequate. Diagnostics Vital Signs (24Hr): Vital Signs - 24 hr 02/08/23 19:43 02/09/23 08:25 Temperature 97.6 F 97.3 F Pulse Rate 75 70 Respiratory Rate 18 Blood Pressure 104/60 125/80 Pulse Oximetry 99 Oxygen Delivery Method Room Air BMI result Body Mass Index 24.7 Labs 01/28/23 17:40 01/30/23 07:14 Medications Medications Current Medications Acetaminophen (Acetaminophen 325 Mg Tablet) 650 mg PO Q6H PRN PRN Reason: Headache/Pain Mild Scale (1-3) Last Admin: 02/07/23 19:59 Dose: 650 mg Al Hydroxide/Mg Hydroxide (Magnesium Hydrox/Alum Hydrox 30 Ml Oral.Susp) 30 ml PO Q6H PRN PRN Reason: Heartburn/Nausea Ascorbic Acid (Ascorbic Acid 500 Mg Tablet) 500 mg PO DAILY [facility] Last Admin: 02/09/23 08:28 Dose: 500 mg Benztropine Mesylate (Benztropine Mesylate 1 Mg Tablet) 1 mg PO TID PRN PRN Reason: EPS/Dystonia Clonidine HCl (Clonidine Hcl 0.1 Mg Tablet) 0.05 mg PO BEDTIME [facility]; Protocol Last Admin: 02/08/23 19:52 Dose: 0.05 mg Clonidine HCl (Clonidine Hcl 0.1 Mg Tablet) 0.05 mg PO Q4H PRN; Protocol PRN Reason: anxiety Last Admin: 02/05/23 17:06 Dose: 0.05 mg Ferrous Sulfate (Ferrous Sulfate 324 Mg Tablet.Dr) 324 mg PO DAILY [facility] Last Admin: 02/09/23 08:28 Dose: 324 mg Fluoxetine HCl (Fluoxetine Hcl 20 Mg Capsule) 60 mg PO DAILY [facility] Last Admin: 02/09/23 08:27 Dose: 60 mg Gabapentin (Gabapentin 100 Mg Capsule) 100 mg PO TID [facility] Last Admin: 02/09/23 14:33 Dose: 100 mg Ibuprofen (Ibuprofen 600 Mg Tablet) 600 mg PO Q8H PRN PRN Reason: Pain, Mild (Pain Scale 1-3) Last Admin: 02/09/23 09:08 Dose: 600 mg [place] Carbonate ([place] Carbonate Er 300 Mg Tablet.Er) 300 mg PO BEDTIME [facility] Last Admin: 02/08/23 19:52 Dose: 300 mg Lorazepam (Lorazepam 1 Mg Tablet) 1 mg PO TID PRN PRN Reason: anxiety Last Admin: 02/09/23 14:34 Dose: 1 mg Magnesium Hydroxide (Milk Of Magnesia 30 Ml Oral.Susp) 30 ml PO DAILY PRN PRN Reason: Constipation Last Admin: 02/04/23 16:28 Dose: 30 ml Methadone HCl (Methadone Hcl 20 Mg/2 Ml Oral.Conc) 125 mg PO DAILY [facility] Last Admin: 02/09/23 08:28 Dose: 125 mg Pharmacy Consult (Consult Rx Perform Med Rec) 1 each MISCELLANE ONCE PRN PRN Reason: Consult order Senna/Docusate Sodium (Sennosides/Docusate Sodium Tablet) 1 tab PO DAILY PRN PRN Reason: constipation Last Admin: 02/08/23 19:52 Dose: 1 tab Sumatriptan Succinate (Sumatriptan Succinate 50 Mg Tablet) 50 mg PO DAILY PRN PRN Reason: migraine Allergies Allergies Allergy/AdvReac Type Severity Reaction Status Date / Time diphenhydramine Allergy Severe RASH Verified 12/26/22 21:20 [From BENADRYL] trazodone [TRAZODONE] AdvReac Severe DYSTONIC Verified 12/26/22 21:20 risperidone [Risperdal] AdvReac Unknown Dystonia Verified 12/26/22 21:20 Assessment & Plan Assessment & Plan (1) MDD (major depressive disorder), recurrent episode, severe: Status: Acute Code(s): F33.2 - Major depressive disorder, recurrent severe without psychotic features (2) PTSD (post-traumatic stress disorder): Status: Acute Code(s): F43.10 - Post-traumatic stress disorder, unspecified (3) Opioid use disorder: Status: Acute Code(s): F11.90 - Opioid use, unspecified, uncomplicated (4) Cocaine use disorder: Status: Acute Code(s): F14.10 - Cocaine abuse, uncomplicated Plan 47 year old female with a history of PTSD, depression, polysubstance use disorder including opioids on methadone, presents with increased depression and subacute onset of CAH to cut herself. Patient has had at least 3 recent psychiatric admissions for increased depression but her AH are new to her per her report. Self harm had been quiescent since adolescence. Hospital course: 02/01 Patient reports continued depression. Continued intermittent auditory hallucinations however they mostly occur during dreams; they do happen during the daytime but patient says that she will be doing something mundane, like watching television and then zone out and when zoned out she will hear a voice saying negative things like kill yourself, you are worthless... etc.. It is 1 voice that she does not recognize. Patient knows it is not real and that it is just a hallucination however it is so bothersome that she started superficially cutting to distract herself. Patient reports she has never had auditory hallucinations before. But she reports history of zoning out which sounds like dissociative episodes. Patient anxious about taking antipsychotic medications saying she has had numerous negative side effects from medications including dystonic reaction. She is amenable to medication management however. Patient shared recent history and said that after admission on M5 she did okay for a little while but got depressed again and was readmitted to M [facility]; she said Prozac increased however depression and anxiety remained. She does not think that auditory hallucinations coincide with increased Prozac. Patient denies any history of manic episodes or symptoms. Discussed cocaine abuse and says it is usually only a few times a month at most. Discussed long history of unprocessed trauma and how it is no longer able to be ignored 02/02 patient remains very depressed; worries she is going crazy due to AH which remain during dreams or when she is waking up and continued to be mood congruent. Patient shared details about her history of trauma which she has never processed. Patient starting to make connections between current symptoms and history. 02/03, patient remains depressed with intermittent AH; reports history of dystonic reaction x4 from antipsychotic and does not want to risk 5th time. 02/04 patient agrees to try BuSpar 02/05 continue treatment plan 02/06/23 add ativan 1 mg qd prn anxiety Impression: AH seems most likely mood congruent due to worsening depression and PTSD; AH happens mostly during nightmares; daytime occurrences are during a dissociative episode. No associated manic symptoms with increased Prozac. -Given that this is most likely mood congruent AH and Since patient has tolerated Prozac, (and is hesitant to try antipsychotics) will titrate Prozac to 60 mg (patient was taking 40 mg up until day of admission was lowered to 20 mg); discussed risks and side effects of this approach which patient agrees with and accepts. 02/07 Will start lithium; no changes in symptoms and patient remains resistant to trying most medications. She continues to report no SI. At past admission it seemed that Prozac was helpful; however at higher dose it does not seem to have made any difference. Since started lithium will keep Prozac as is but would also consider either changing to another antidepressant or possibly restarting Lamictal in its place. 02/08: Patient denies having any side effects from lithium. She is hopeful regarding this medication. Continues to have AH throughout the day. Continue with current treatment plan. 02/09: Patient reports feeling tired today d/t getting her menstrual cycle. Pt denies having any AH today. Continue with current treatment plan. Dx: MDD, recurrent, severe with psychotic features PTSD exacerbation with dissociative episodes PLAN: Admit to M5 CV START [place] ER 300mg qhs as augmentation Continue Prozac to 60 mg daily Schedule clonidine 0.05 mg q.h.s. for trouble with sleep and nightmares (prazosin causes headache) DC Thorazine; patient decided does not want to Consider Lamictal... Consider lithium which patient says caused no problems last time she tried it; not sure if it helped otherwise: Milieu therapy Aftercare plan with therapist medication history: -Risperdal caused dystonia -Seroquel caused excessive sedation -[place] had no side effects however she can not remember if it was helpful or not. -prazosin causes headache -Wellbutrin, Celexa, Remeron, trazodone:? Patient says that either did not work or adverse reaction Patient educated on: medication risk/benefits and therapeutic strategies Informed Consent: understands Reason for continued inpatient stay Substantial Risk for: med/psych decompensation Time Spent With Patient Time: Total time managing care of this patient today ____ minutes.
[2023-02-09 17:49] VITALS: BP 112/69; PULSE 99; RESP 18; TEMP 36.8; O2SAT 100
[2023-02-09] MEDS: Lithium Carbonate ER 300 MG TABLET.ER PO (20:18)
[2023-02-09] MEDS: cloNIDine HCL 0.1 MG TABLET 0.05 MG PO (20:19)
[2023-02-09] MEDS: Zolpidem Tartrate 5 MG TABLET 10 MG PO (20:49)
[2023-02-10 07:00] VITALS: BMI 25.0
[2023-02-10 08:10] VITALS: BP 108/67; PULSE 67; RESP 18; TEMP 36.2; O2SAT 98
[2023-02-10] MEDS: FLUoxetine HCl 20 MG CAPSULE 60 MG PO (08:36)
[2023-02-10] MEDS: Ascorbic Acid 500 MG TABLET PO (08:36)
[2023-02-10] MEDS: Ibuprofen 600 MG TABLET PO (08:37)
[2023-02-10] MEDS: Gabapentin 100 MG CAPSULE PO ×3 (08:37→19:23)
[2023-02-10] MEDS: LORazepam 1 MG TABLET PO ×3 (08:38→20:09)
[2023-02-10] MEDS: methADONE HCl 20 MG/2 ML ORAL.CONC 125 MG PO (08:38)
--- NOTE | 2023-02-10 10:22 | P.PNPSI_ITS ---
Subjective Subjective Date of Service: 02/10/23 Reason For Visit: Suicidal ideation Interim History: met with pt; discussed with team; reviewed notes pt reports AH remain but since starting [place] they are less strong, less bothersome and less negative. Also, nightmares have ceased. Pt says mood is subsequently better too. Out in milue more and tolerating groups. She denies any Side-effects. Wants to keep med regimen as is for now, though discussed options of increase in [place] and possibly adding Lamcital for ptsd since not sure if Prozac has been helpful Mental Status Exam Mental Status Exam Narrative: Pt is alert and oriented; behavior is cooperative, calm; appropriately dressed in casual attire, well groomed; mood is described as little better and affect congruent, calm, brighter; eye contact appropriate; Speech is normal rate, volume and prosody and not pressured; some psychomotor retardation present; thought process is organized and goal directed; Thought content is dealing with depression, symptoms, AH; otherwise pertinent to relevant topics and without any delusional content, paranoid ideations or grandiosity; no SI; no HI. Positive for AH but lessening Patients insight and judgment fair. Diagnostics Vital Signs (24Hr): Vital Signs - 24 hr 02/09/23 17:49 02/10/23 08:10 Temperature 98.2 F 97.1 F Pulse Rate 99 67 Respiratory Rate 18 18 Blood Pressure 112/69 108/67 Pulse Oximetry 100 98 Oxygen Delivery Method Room Air Room Air BMI result Body Mass Index 24.7 Labs 01/28/23 17:40 01/30/23 07:14 Medications Medications Current Medications Acetaminophen (Acetaminophen 325 Mg Tablet) 650 mg PO Q6H PRN PRN Reason: Headache/Pain Mild Scale (1-3) Last Admin: 02/07/23 19:59 Dose: 650 mg Al Hydroxide/Mg Hydroxide (Magnesium Hydrox/Alum Hydrox 30 Ml Oral.Susp) 30 ml PO Q6H PRN PRN Reason: Heartburn/Nausea Ascorbic Acid (Ascorbic Acid 500 Mg Tablet) 500 mg PO DAILY YESENIA Last Admin: 02/10/23 08:36 Dose: 500 mg Benztropine Mesylate (Benztropine Mesylate 1 Mg Tablet) 1 mg PO TID PRN PRN Reason: EPS/Dystonia Clonidine HCl (Clonidine Hcl 0.1 Mg Tablet) 0.05 mg PO BEDTIME YESENIA; Protocol Last Admin: 02/09/23 20:19 Dose: 0.05 mg Clonidine HCl (Clonidine Hcl 0.1 Mg Tablet) 0.05 mg PO Q4H PRN; Protocol PRN Reason: anxiety Last Admin: 02/05/23 17:06 Dose: 0.05 mg Ferrous Sulfate (Ferrous Sulfate 324 Mg Tablet.Dr) 324 mg PO DAILY YESENIA Last Admin: 02/10/23 08:41 Dose: Not Given Fluoxetine HCl (Fluoxetine Hcl 20 Mg Capsule) 60 mg PO DAILY YESENIA Last Admin: 02/10/23 08:36 Dose: 60 mg Gabapentin (Gabapentin 100 Mg Capsule) 100 mg PO TID YESENIA Last Admin: 02/10/23 08:37 Dose: 100 mg Ibuprofen (Ibuprofen 600 Mg Tablet) 600 mg PO Q8H PRN PRN Reason: Pain, Mild (Pain Scale 1-3) Last Admin: 02/10/23 08:37 Dose: 600 mg [place] Carbonate ([place] Carbonate Er 300 Mg Tablet.Er) 300 mg PO BEDTIME YESENIA Last Admin: 02/09/23 20:18 Dose: 300 mg Lorazepam (Lorazepam 1 Mg Tablet) 1 mg PO TID PRN PRN Reason: anxiety Last Admin: 02/10/23 08:38 Dose: 1 mg Magnesium Hydroxide (Milk Of Magnesia 30 Ml Oral.Susp) 30 ml PO DAILY PRN PRN Reason: Constipation Last Admin: 02/04/23 16:28 Dose: 30 ml Methadone HCl (Methadone Hcl 20 Mg/2 Ml Oral.Conc) 125 mg PO DAILY YESENIA Last Admin: 02/10/23 08:38 Dose: 125 mg Pharmacy Consult (Consult Rx Perform Med Rec) 1 each MISCELLANE ONCE PRN PRN Reason: Consult order Senna/Docusate Sodium (Sennosides/Docusate Sodium Tablet) 1 tab PO DAILY PRN PRN Reason: constipation Last Admin: 02/08/23 19:52 Dose: 1 tab Sumatriptan Succinate (Sumatriptan Succinate 50 Mg Tablet) 50 mg PO DAILY PRN PRN Reason: migraine Zolpidem Tartrate (Zolpidem Tartrate 5 Mg Tablet) 10 mg PO BEDTIME PRN PRN Reason: Insomnia Last Admin: 02/09/23 20:49 Dose: 10 mg Allergies Allergies Allergy/AdvReac Type Severity Reaction Status Date / Time diphenhydramine Allergy Severe RASH Verified 12/26/22 21:20 [From BENADRYL] trazodone [TRAZODONE] AdvReac Severe DYSTONIC Verified 12/26/22 21:20 risperidone [Risperdal] AdvReac Unknown Dystonia Verified 12/26/22 21:20 Assessment & Plan Assessment & Plan (1) MDD (major depressive disorder), recurrent episode, severe: Status: Acute Code(s): F33.2 - Major depressive disorder, recurrent severe without psychotic features (2) PTSD (post-traumatic stress disorder): Status: Acute Code(s): F43.10 - Post-traumatic stress disorder, unspecified (3) Opioid use disorder: Status: Acute Code(s): F11.90 - Opioid use, unspecified, uncomplicated (4) Cocaine use disorder: Status: Acute Code(s): F14.10 - Cocaine abuse, uncomplicated Plan 47 year old female with a history of PTSD, depression, polysubstance use disorder including opioids on methadone, presents with increased depression and subacute onset of CAH to cut herself. Patient has had at least 3 recent psychiatric admissions for increased depression but her AH are new to her per her report. Self harm had been quiescent since adolescence. Hospital course: 02/01 Patient reports continued depression. Continued intermittent auditory hallucinations however they mostly occur during dreams; they do happen during the daytime but patient says that she will be doing something mundane, like watching television and then zone out and when zoned out she will hear a voice saying negative things like kill yourself, you are worthless... etc.. It is 1 voice that she does not recognize. Patient knows it is not real and that it is just a hallucination however it is so bothersome that she started superficially cutting to distract herself. Patient reports she has never had auditory hallucinations before. But she reports history of zoning out which sounds like dissociative episodes. Patient anxious about taking antipsychotic medications saying she has had numerous negative side effects from medications including dystonic reaction. She is amenable to medication management however. Patient shared recent history and said that after admission on M5 she did okay for a little while but got depressed again and was readmitted to 3; she said Prozac increased however depression and anxiety remained. She does not think that auditory hallucinations coincide with increased Prozac. Patient denies any history of manic episodes or symptoms. Discussed cocaine abuse and says it is usually only a few times a month at most. Discussed long history of unprocessed trauma and how it is no longer able to be ignored 02/02 patient remains very depressed; worries she is going crazy due to AH w hich remain during dreams or when she is waking up and continued to be mood congruent. Patient shared details about her history of trauma which she has never processed. Patient starting to make connections between current symptoms and history. 02/03, patient remains depressed with intermittent AH; reports history of dystonic reaction x4 from antipsychotic and does not want to risk 5th time. 02/04 patient agrees to try BuSpar 02/05 continue treatment plan 02/06/23 add ativan 1 mg qd prn anxiety Impression: AH seems most likely mood congruent due to worsening depression and PTSD; AH happens mostly during nightmares; daytime occurrences are during a dissociative episode. No associated manic symptoms with increased Prozac. -Given that this is most likely mood congruent AH and Since patient has tolerated Prozac, (and is hesitant to try antipsychotics) will titrate Prozac to 60 mg (patient was taking 40 mg up until day of admission was lowered to 20 mg); discussed risks and side effects of this approach which patient agrees with and accepts. 02/07 Will start lithium; no changes in symptoms and patient remains resistant to trying most medications. She continues to report no SI. At past admission it seemed that Prozac was helpful; however at higher dose it does not seem to have made any difference. Since started lithium will keep Prozac as is but would also consider either changing to another antidepressant or possibly restarting Lamictal in its place. 02/08: Patient denies having any side effects from lithium. She is hopeful regarding this medication. Continues to have AH throughout the day. Continue with current treatment plan. 02/09: Patient reports feeling tired today d/t getting her menstrual cycle. Pt denies having any AH today. Continue with current treatment plan. 02/10 symptoms improving with start of [place]. AH less and mood better. Continue current plan for now; consider lamictal if prozac deemed not effective Dx: MDD, recurrent, severe with psychotic features PTSD exacerbation with dissociative episodes cocain use disorder, mild to moderate PLAN: Admit to M5 CV Continue [place] ER 300mg qhs as augmentation Continue Prozac to 60 mg daily Schedule clonidine 0.05 mg q.h.s. for trouble with sleep and nightmares (prazosin causes headache) DC Thorazine; patient decided does not want to Consider Lamictal... otherwise: Milieu therapy Aftercare plan with therapist medication history: -Risperdal caused dystonia -Seroquel caused excessive sedation -[place] had no side effects however she can not remember if it was helpful or not. -prazosin causes headache -Wellbutrin, Celexa, Remeron, trazodone:? Patient says that either did not work or adverse reaction Patient educated on: diagnosis and medication risk/benefits Informed Consent: understands Reason for continued inpatient stay Substantial Risk for: rapid decompensation and med/psych decompensation Time Spent With Patient Time: Total time managing care of this patient today ____ minutes.
[2023-02-10] MEDS: Acetaminophen 325 MG TABLET 650 MG PO (14:03)
[2023-02-10 18:00] VITALS: BP 116/79; PULSE 75; RESP 16; TEMP 36.4; O2SAT 98
[2023-02-10] MEDS: Lithium Carbonate ER 300 MG TABLET.ER PO (19:23)
[2023-02-10] MEDS: cloNIDine HCL 0.1 MG TABLET 0.05 MG PO (19:23)
[2023-02-10] MEDS: Zolpidem Tartrate 5 MG TABLET 10 MG PO (20:09)
[2023-02-11 08:00] VITALS: BP 118/78; PULSE 74; RESP 18; TEMP 36.2; O2SAT 98
[2023-02-11] MEDS: Ascorbic Acid 500 MG TABLET PO (08:03)
[2023-02-11] MEDS: Gabapentin 100 MG CAPSULE PO (08:03)
[2023-02-11] MEDS: FLUoxetine HCl 20 MG CAPSULE 60 MG PO (08:03)
[2023-02-11] MEDS: methADONE HCl 20 MG/2 ML ORAL.CONC 125 MG PO (08:04)
[2023-02-11] MEDS: LORazepam 1 MG TABLET PO ×3 (08:10→20:01)
[2023-02-11 09:58] LABS: Lithium 0.32 mmol/L (0.60-1.20)
--- NOTE | 2023-02-11 10:29 | P.PNPSI_ITS ---
Subjective Subjective Date of Service: 02/11/23 Reason For Visit: Suicidal ideation Interim History: Met with patient; discussed with team Patient remains with improved mood. Still has some AH but continues to say it is much less and has . Less potency. Patient would like to have trial of Adderall for ADD symptoms. Patient and feature writer had discussed this previously if AH got better she could have a trial of it while on the unit; patient understands that it could make AH worse, however as it is mood congruent this is much less likely. Productivity Engineer agreed Mental Status Exam Mental Status Exam Narrative: Pt is alert and oriented; behavior is cooperative, calm; appropriately dressed in casual attire, well groomed; mood is described as little better and affect congruent, calm, brighter; eye contact appropriate; Speech is normal rate, volume and prosody and not pressured; some psychomotor retardation present; thought process is organized and goal directed; Thought content is dealing with depression, symptoms, AH; otherwise pertinent to relevant topics and without any delusional content, paranoid ideations or grandiosity; no SI; no HI. Positive for AH but lessening Patients insight and judgment fair. Diagnostics Vital Signs (24Hr): Vital Signs - 24 hr 02/10/23 18:00 02/11/23 08:00 Temperature 97.6 F 97.2 F Pulse Rate 75 74 Respiratory Rate 16 18 Blood Pressure 116/79 118/78 Pulse Oximetry 98 98 Oxygen Delivery Method Room Air Room Air BMI result Body Mass Index 25.0 Labs 01/28/23 17:40 01/30/23 07:14 Labs: Laboratory Results - last 48 hr 02/11/23 08:48 [place] 0.32 L Medications Medications Current Medications Acetaminophen (Acetaminophen 325 Mg Tablet) 650 mg PO Q6H PRN PRN Reason: Headache/Pain Mild Scale (1-3) Last Admin: 02/10/23 14:03 Dose: 650 mg Al Hydroxide/Mg Hydroxide (Magnesium Hydrox/Alum Hydrox 30 Ml Oral.Susp) 30 ml PO Q6H PRN PRN Reason: Heartburn/Nausea Ascorbic Acid (Ascorbic Acid 500 Mg Tablet) 500 mg PO DAILY YESENIA Last Admin: 02/11/23 08:03 Dose: 500 mg Benztropine Mesylate (Benztropine Mesylate 1 Mg Tablet) 1 mg PO TID PRN PRN Reason: EPS/Dystonia Clonidine HCl (Clonidine Hcl 0.1 Mg Tablet) 0.05 mg PO BEDTIME YESENIA; Protocol Last Admin: 02/10/23 19:23 Dose: 0.05 mg Clonidine HCl (Clonidine Hcl 0.1 Mg Tablet) 0.05 mg PO Q4H PRN; Protocol PRN Reason: anxiety Last Admin: 02/05/23 17:06 Dose: 0.05 mg Ferrous Sulfate (Ferrous Sulfate 324 Mg Tablet.Dr) 324 mg PO DAILY YESENIA Last Admin: 02/11/23 08:38 Dose: Not Given Fluoxetine HCl (Fluoxetine Hcl 20 Mg Capsule) 60 mg PO DAILY YESENIA Last Admin: 02/11/23 08:03 Dose: 60 mg Gabapentin (Gabapentin 100 Mg Capsule) 100 mg PO TID YESENIA Last Admin: 02/11/23 08:03 Dose: 100 mg Ibuprofen (Ibuprofen 600 Mg Tablet) 600 mg PO Q8H PRN PRN Reason: Pain, Mild (Pain Scale 1-3) Last Admin: 02/10/23 08:37 Dose: 600 mg [place] Carbonate ([place] Carbonate Er 300 Mg Tablet.Er) 300 mg PO BEDTIME YESENIA Last Admin: 02/10/23 19:23 Dose: 300 mg Lorazepam (Lorazepam 1 Mg Tablet) 1 mg PO BID PRN PRN Reason: anxiety Last Admin: 02/11/23 08:10 Dose: 1 mg Magnesium Hydroxide (Milk Of Magnesia 30 Ml Oral.Susp) 30 ml PO DAILY PRN PRN Reason: Constipation Last Admin: 02/04/23 16:28 Dose: 30 ml Methadone HCl (Methadone Hcl 20 Mg/2 Ml Oral.Conc) 125 mg PO DAILY [facility] Last Admin: 02/11/23 08:04 Dose: 125 mg Pharmacy Consult (Consult Rx Perform Med Rec) 1 each MISCELLANE ONCE PRN PRN Reason: Consult order Senna/Docusate Sodium (Sennosides/Docusate Sodium Tablet) 1 tab PO DAILY PRN PRN Reason: constipation Last Admin: 02/08/23 19:52 Dose: 1 tab Sumatriptan Succinate (Sumatriptan Succinate 50 Mg Tablet) 50 mg PO DAILY PRN PRN Reason: migraine Zolpidem Tartrate (Zolpidem Tartrate 5 Mg Tablet) 10 mg PO BEDTIME PRN PRN Reason: Insomnia Last Admin: 02/10/23 20:09 Dose: 10 mg Allergies Allergies Allergy/AdvReac Type Severity Reaction Status Date / Time diphenhydramine Allergy Severe RASH Verified 12/26/22 21:20 [From BENADRYL] trazodone [TRAZODONE] AdvReac Severe DYSTONIC Verified 12/26/22 21:20 risperidone [Risperdal] AdvReac Unknown Dystonia Verified 12/26/22 21:20 Assessment & Plan Assessment & Plan (1) MDD (major depressive disorder), recurrent episode, severe: Status: Acute Code(s): F33.2 - Major depressive disorder, recurrent severe without psychotic features (2) PTSD (post-traumatic stress disorder): Status: Acute Code(s): F43.10 - Post-traumatic stress disorder, unspecified (3) Opioid use disorder: Status: Acute Code(s): F11.90 - Opioid use, unspecified, uncomplicated (4) Cocaine use disorder: Status: Acute Code(s): F14.10 - Cocaine abuse, uncomplicated Plan 47 year old female with a history of PTSD, depression, polysubstance use disorder including opioids on methadone, presents with increased depression and subacute onset of CAH to cut herself. Patient has had at least 3 recent psychiatric admissions for increased depression but her AH are new to her per her report. Self harm had been quiescent since adolescence. Hospital course: 02/01 Patient reports continued depression. Continued intermittent auditory hallucinations however they mostly occur during dreams; they do happen during the daytime but patient says that she will be doing something mundane, like watching television and then zone out and when zoned out she will hear a voice saying negative things like kill yourself, you are worthless... etc.. It is 1 voice that she does not recognize. Patient knows it is not real and that it is just a hallucination however it is so bothersome that she started superficially cutting to distract herself. Patient reports she has never had auditory hallucinations before. But she reports history of zoning out which sounds like dissociative episodes. Patient anxious about taking antipsychotic medications saying she has had numerous negative side effects from medications including dystonic reaction. She is amenable to medication management however. Patient shared recent history and said that after admission on M5 she did okay for a little while but got depressed again and was readmitted to 3; she said Prozac increased however depression and anxiety remained. She does not think that auditory hallucinations coincide with increased Prozac. Patient denies any history of manic episodes or symptoms. Discussed cocaine abuse and says it is usually only a few times a month at most. Discussed long history of unprocessed trauma and how it is no longer able to be ignored 02/02 patient remains very depressed; worries she is going crazy due to AH which remain during dreams or when she is waking up and continued to be mood congruent. Patient shared details about her history of trauma which she has never processed. Patient starting to make connections between current symptoms and history. 02/03, patient remains depressed with intermittent AH; reports history of dystonic reaction x4 from antipsychotic and does not want to risk 5th time. 02/04 patient agrees to try BuSpar 02/05 continue treatment plan 02/06/23 add ativan 1 mg qd prn anxiety Impression: AH seems most likely mood congruent due to worsening depression and PTSD; AH happens mostly during nightmares; daytime occurrences are during a dissociative episode. No associated manic symptoms with increased Prozac. -Given that this is most likely mood congruent AH and Since patient has tolerated Prozac, (and is hesitant to try antipsychotics) will titrate Prozac to 60 mg (patient was taking 40 mg up until day of admission was lowered to 20 mg); discussed risks and side effects of this approach which patient agrees with and accepts. 02/07 Will start lithium; no changes in symptoms and patient remains resistant to trying most medications. She continues to report no SI. At past admission it seemed that Prozac was helpful; however at higher dose it does not seem to have made any difference. Since started lithium will keep Prozac as is but would also consider either changing to another antidepressant or possibly restarting Lamictal in its place. 02/08: Patient denies having any side effects from lithium. She is hopeful regarding this medication. Continues to have AH throughout the day. Continue with current treatment plan. 02/09: Patient reports feeling tired today d/t getting her menstrual cycle. Pt denies having any AH today. Continue with current treatment plan. 02/10 symptoms improving with start of [place]. AH less and mood better. Continue current plan for now; consider lamictal if prozac deemed not effective 02/11 symptoms remain improving with lithium; mood better; AH remains but continues to be less. Patient asks for 3rd time if she could have a trial of Adderall before she leaves early next week; feature writer agreed to started this weekend; patient said she would not take it if it for any reason made AH worse. Patient understands she will not be discharged on this medication but it is just for a trial purpose to see if it is effective. Productivity Engineer reviewed patient's social history. Patient lives at home with her ex partner who is stable, sober and whom she considers her best friend. Dx: MDD, recurrent, severe with psychotic features PTSD exacerbation with dissociative episodes cocain use disorder, mild to moderate PLAN: Admit to M5 CV Triall of Adderall xl 10mg daily Continue [place] ER 300mg qhs as augmentation Continue Prozac to 60 mg daily Schedule clonidine 0.05 mg q.h.s. for trouble with sleep and nightmares (prazosin causes headache) DC Thorazine; patient decided does not want to Consider Lamictal... otherwise: Milieu therapy Aftercare plan with therapist medication history: -Risperdal caused dystonia -Seroquel caused excessive sedation -[place] had no side effects however she can not remember if it was helpful or not. -prazosin causes headache -Wellbutrin, Celexa, Remeron, trazodone:? Patient says that either did not work or adverse reaction Patient educated on: diagnosis and medication risk/benefits Informed Consent: understands Reason for continued inpatient stay Substantial Risk for: stable for discharge Time Spent With Patient Time: Total time managing care of this patient today ____ minutes.
[2023-02-11] MEDS: Acetaminophen 325 MG TABLET 650 MG PO (13:34)
[2023-02-11 19:55] VITALS: BP 131/86; PULSE 108; RESP 16; TEMP 36.8
[2023-02-11] MEDS: cloNIDine HCL 0.1 MG TABLET 0.05 MG PO (19:56)
[2023-02-11] MEDS: Lithium Carbonate ER 300 MG TABLET.ER PO (19:56)
[2023-02-11] MEDS: Zolpidem Tartrate 5 MG TABLET 10 MG PO (19:56)
[2023-02-11] MEDS: Ibuprofen 600 MG TABLET PO (20:01)
[2023-02-12 08:05] VITALS: BP 137/86; PULSE 99; RESP 16; TEMP 36.5; O2SAT 99
[2023-02-12] MEDS: Acetaminophen 325 MG TABLET 650 MG PO ×2 (08:14→16:14)
[2023-02-12] MEDS: FLUoxetine HCl 20 MG CAPSULE 60 MG PO (08:14)
[2023-02-12] MEDS: Ascorbic Acid 500 MG TABLET PO (08:14)
[2023-02-12] MEDS: LORazepam 1 MG TABLET PO ×3 (08:14→19:29)
[2023-02-12] MEDS: Dextroamphetamine/Amphetamine XR 10 MG CAP.ER.24H PO (08:14)
[2023-02-12] MEDS: Ferrous Sulfate 324 MG TABLET.DR PO (08:15)
[2023-02-12] MEDS: methADONE HCl 20 MG/2 ML ORAL.CONC 125 MG PO (08:15)
[2023-02-12] MEDS: Ibuprofen 600 MG TABLET PO (14:05)
--- NOTE | 2023-02-12 15:15 | P.PNPSI_ITS ---
Subjective Subjective Date of Service: 02/12/23 Reason For Visit: Suicidal ideation Interim History: Met with patient; discussed with team Reports feeling well with starting Adderall. She feels more focused and activated. Denies worsening of AVH. She is requesting an increase in her Loraz epam to TID PRN to help with sleep. She is more engaged. Denies SI/HI. Review of Systems Review of Systems Constitutional : No Weight loss, No Fever, No Chills, No Fatigue, No Malaise ENT/Mouth : No sore throat, No Rhinorrhea Eyes: No Eye Pain, No Swelling, No Redness Cardiovascular : No Chest Pain, No SOB, No Dyspnea on Exertion, No Orthopnea, No Edema, No Palpitations Respiratory : No Cough, No Sputum, No Wheezing Gastrointestinal : No Nausea, No Vomiting, No Diarrhea, No Constipation, No abdominal Pain, No Hematochezia, No Melena Genitourinary : No Dysuria, No Urinary Frequency, No Hematuria, Musculoskeletal : No joint pain, No Myalgias, No Joint Swelling Skin : No Skin Lesions, No rash Neuro : No Weakness, No Numbness, No Dizziness, No Headache Psych : + Anxiety/Panic, + Depression, + SI All other systems reviewed and are negative Yes all other systems are reviewed and are negative Mental Status Exam Mental Status Exam Narrative: Pt is alert and oriented; behavior is cooperative, calm; appropriately dressed in casual attire, well groomed; mood is described as little better and affect congruent, calm, brighter; eye contact appropriate; Speech is normal rate, volume and prosody and not pressured; some psychomotor retardation present; thought process is organized and goal directed; Thought content is dealing with depression, symptoms, AH; otherwise pertinent to relevant topics and without any delusional content, paranoid ideations or grandiosity; no SI; no HI. Positive for AH but lessening Patients insight and judgment fair. Patient Appearance: Well Grooomed and Appropriate Patient Orientation: Person, Place, Time and Situation Level of Consciousness: Awake and Alert Patient Behavior: Appropriate, Timid, Anxious, Fearful and Good Eye Contact Mood Description: Constricted, Fearful, Anxious and Nervous Affect Description: Anxious Ability to Follow Directions: Excellent Speech Pattern: Clear Memory Description: Intact Diagnostics Vital Signs (24Hr): Vital Signs - 24 hr 02/11/23 19:55 02/12/23 08:05 Temperature 98.2 F 97.7 F Pulse Rate 108 H 99 Respiratory Rate 16 16 Blood Pressure 131/86 137/86 Pulse Oximetry 99 Oxygen Delivery Method Room Air Room Air BMI result Body Mass Index 25.0 Labs 01/28/23 17:40 01/30/23 07:14 Labs: Laboratory Results - last 48 hr 02/11/23 08:48 [place] 0.32 L Medications Medications Current Medications Acetaminophen (Acetaminophen 325 Mg Tablet) 650 mg PO Q6H PRN PRN Reason: Headache/Pain Mild Scale (1-3) Last Admin: 02/12/23 08:14 Dose: 650 mg Al Hydroxide/Mg Hydroxide (Magnesium Hydrox/Alum Hydrox 30 Ml Oral.Susp) 30 ml PO Q6H PRN PRN Reason: Heartburn/Nausea Amphetamine/Dextroamphetamine (Dextroamphetamine/Amphetamine Xr 10 Mg Cap.Er.24h) 10 mg PO DAILY [facility] Last Admin: 02/12/23 08:14 Dose: 10 mg Ascorbic Acid (Ascorbic Acid 500 Mg Tablet) 500 mg PO DAILY [facility] Last Admin: 02/12/23 08:14 Dose: 500 mg Benztropine Mesylate (Benztropine Mesylate 1 Mg Tablet) 1 mg PO TID PRN PRN Reason: EPS/Dystonia Clonidine HCl (Clonidine Hcl 0.1 Mg Tablet) 0.05 mg PO BEDTIME YESENIA; Protocol Last Admin: 02/11/23 19:56 Dose: 0.05 mg Clonidine HCl (Clonidine Hcl 0.1 Mg Tablet) 0.05 mg PO Q4H PRN; Protocol PRN Reason: anxiety Last Admin: 02/05/23 17:06 Dose: 0.05 mg Ferrous Sulfate (Ferrous Sulfate 324 Mg Tablet.Dr) 324 mg PO DAILY [facility]ENIA Last Admin: 02/12/23 08:15 Dose: 324 mg Fluoxetine HCl (Fluoxetine Hcl 20 Mg Capsule) 60 mg PO DAILY [facility] Last Admin: 02/12/23 08:14 Dose: 60 mg Ibuprofen (Ibuprofen 600 Mg Tablet) 600 mg PO Q8H PRN PRN Reason: Pain, Mild (Pain Scale 1-3) Last Admin: 02/12/23 14:05 Dose: 600 mg [place] Carbonate ([place] Carbonate Er 300 Mg Tablet.Er) 300 mg PO BEDTIME [facility]EN[facility] Last Admin: 02/11/23 19:56 Dose: 300 mg Lorazepam (Lorazepam 1 Mg Tablet) 1 mg PO BID PRN PRN Reason: anxiety Last Admin: 02/12/23 14:05 Dose: 1 mg Magnesium Hydroxide (Milk Of Magnesia 30 Ml Oral.Susp) 30 ml PO DAILY PRN PRN Reason: Constipation Last Admin: 02/04/23 16:28 Dose: 30 ml Methadone HCl (Methadone Hcl 20 Mg/2 Ml Oral.Conc) 125 mg PO DAILY [facility] Last Admin: 02/12/23 08:15 Dose: 125 mg Pharmacy Consult (Consult Rx Perform Med Rec) 1 each MISCELLANE ONCE PRN PRN Reason: Consult order Senna/Docusate Sodium (Sennosides/Docusate Sodium Tablet) 1 tab PO DAILY PRN PRN Reason: constipation Last Admin: 02/08/23 19:52 Dose: 1 tab Sumatriptan Succinate (Sumatriptan Succinate 50 Mg Tablet) 50 mg PO DAILY PRN PRN Reason: migraine Zolpidem Tartrate (Zolpidem Tartrate 5 Mg Tablet) 10 mg PO BEDTIME PRN PRN Reason: Insomnia Last Admin: 02/11/23 19:56 Dose: 10 mg Allergies Allergies Allergy/AdvReac Type Severity Reaction Status Date / Time diphenhydramine Allergy Severe RASH Verified 12/26/22 21:20 [From BENADRYL] trazodone [TRAZODONE] AdvReac Severe DYSTONIC Verified 12/26/22 21:20 risperidone [Risperdal] AdvReac Unknown Dystonia Verified 12/26/22 21:20 Assessment & Plan Assessment & Plan (1) MDD (major depressive disorder), recurrent episode, severe: Status: Acute Code(s): F33.2 - Major depressive disorder, recurrent severe without psychotic features (2) PTSD (post-traumatic stress disorder): Status: Acute Code(s): F43.10 - Post-traumatic stress disorder, unspecified (3) Opioid use disorder: Status: Acute Code(s): F11.90 - Opioid use, unspecified, uncomplicated (4) Cocaine use disorder: Status: Acute Code(s): F14.10 - Cocaine abuse, uncomplicated Plan 47 year old female with a history of PTSD, depression, polysubstance use disorder including opioids on methadone, presents with increased depression and subacute onset of CAH to cut herself. Patient has had at least 3 recent psychiatric admissions for increased depression but her AH are new to her per her report. Self harm had been quiescent since adolescence. Hospital course: 02/01 Patient reports continued depression. Continued intermittent auditory hallucinations however they mostly occur during dreams; they do happen during the daytime but patient says that she will be doing something mundane, like watching television and then zone out and when zoned out she will hear a voice saying negative things like kill yourself, you are worthless... etc.. It is 1 voice that she does not recognize. Patient knows it is not real and that it is just a hallucination however it is so bothersome that she started superficially cutting to distract herself. Patient reports she has never had auditory hallucinations before. But she reports history of zoning out which sounds like dissociative episodes. Patient anxious about taking antipsychotic medications saying she has had numerous negative side effects from medications including dystonic reaction. She is amenable to medication management however. Patient shared recent history and said that after admission on M5 she did okay for a little while but got depressed again and was readmitted to 3; she said Prozac increased however depression and anxiety remained. She does not think that auditory hallucinations coincide with increased Prozac. Patient denies any history of manic episodes or symptoms. Discussed cocaine abuse and says it is usually only a few times a month at most. Discussed long history of unprocessed trauma and how it is no longer able to be ignored 02/02 patient remains very depressed; worries she is going crazy due to AH which remain during dreams or when she is waking up and continued to be mood congruent. Patient shared details about her history of trauma which she has never processed. Patient starting to make connections between current symptoms and history. 02/03, patient remains depressed with intermittent AH; reports history of dystonic reaction x4 from antipsychotic and does not want to risk 5th time. 02/04 patient agrees to try BuSpar 02/05 continue treatment plan 02/06/23 add ativan 1 mg qd prn anxiety Impression: AH seems most likely mood congruent due to worsening depression and PTSD; AH happens mostly during nightmares; daytime occurrences are during a dissociative episode. No associated manic symptoms with increased Prozac. -Given that this is most likely mood congruent AH and Since patient has tolerated Prozac, (and is hesitant to try antipsychotics) will titrate Prozac to 60 mg (patient was taking 40 mg up until day of admission was lowered to 20 mg); discussed risks and side effects of this approach which patient agrees with and accepts. 02/07 Will start lithium; no changes in symptoms and patient remains resistant to trying most medications. She continues to report no SI. At past admission it seemed that Prozac was helpful; however at higher dose it does not seem to have made any difference. Since started lithium will keep Prozac as is but would also consider either changing to another antidepressant or possibly restarting Lamictal in its place. 02/08: Patient denies having any side effects from lithium. She is hopeful regarding this medication. Continues to have AH throughout the day. Continue with current treatment plan. 02/09: Patient reports feeling tired today d/t getting her menstrual cycle. Pt denies having any AH today. Continue with current treatment plan. 02/10 symptoms improving with start of Angel Fire. AH less and mood better. Continue current plan for now; consider lamictal if prozac deemed not effective 02/11 symptoms remain improving with lithium; mood better; AH remains but continues to be less. Patient asks for 3rd time if she could have a trial of Adderall before she leaves early next week; junior underwriter agreed to started this weeken d; patient said she would not take it if it for any reason made AH worse. Patient understands she will not be discharged on this medication but it is just for a trial purpose to see if it is effective. Smoking Pipe Coater reviewed patient's social history. Patient lives at home with her ex partner who is stable, sober and whom she considers her best friend. 02/12: Continue current treatment plan. Increase Ativan 1 mg TID PRN (i.e. added HS PRN dose for insomnia.). Will reassess. Dx: MDD, recurrent, severe with psychotic features PTSD exacerbation with dissociative episodes cocain use disorder, mild to moderate PLAN: Admit to M5 CV Triall of Adderall xl 10mg daily Continue [place] ER 300mg qhs as augmentation Continue Prozac to 60 mg daily Schedule clonidine 0.05 mg q.h.s. for trouble with sleep and nightmares (prazosin causes headache) DC Thorazine; patient decided does not want to Consider Lamictal... otherwise: Milieu therapy Aftercare plan with therapist medication history: -Risperdal caused dystonia -Seroquel caused excessive sedation -Angel Fire had no side effects however she can not remember if it was helpful or not. -prazosin causes headache -Wellbutrin, Celexa, Remeron, trazodone:? Patient says that either did not work or adverse reaction Reason for continued inpatient stay Substantial Risk for: harm to self, inability to function and rapid decompensation Time Spent With Patient Time: Total time managing care of this patient today ____ minutes.
[2023-02-12 16:12] VITALS: BP 112/81; PULSE 75; TEMP 36.2
[2023-02-12] MEDS: cloNIDine HCL 0.1 MG TABLET 0.05 MG PO ×2 (16:15→19:30)
[2023-02-12 19:28] VITALS: BP 124/76; PULSE 88
[2023-02-12] MEDS: Lithium Carbonate ER 300 MG TABLET.ER PO (19:29)
[2023-02-12] MEDS: Zolpidem Tartrate 5 MG TABLET 10 MG PO (19:29)
[2023-02-12] MEDS: Sennosides/Docusate Sodium TABLET 1 TAB PO (19:29)
[2023-02-13 07:18] LABS: Lithium 0.44 mmol/L (0.60-1.20)
[2023-02-13 07:30] LABS: Blood Urea Nitrogen 19 mg/dL (9-16); Creatinine Clr Calc Pharmacy 74.7; Estimated Glomerular Filt Rate > 60
[2023-02-13 07:47] LABS: TSH reflex Free T4 2.43 uIU/mL (0.32-4.0)
[2023-02-13 08:16] VITALS: BP 117/84; PULSE 92; RESP 18; TEMP 36.2; O2SAT 99
[2023-02-13] MEDS: FLUoxetine HCl 20 MG CAPSULE 60 MG PO (08:23)
[2023-02-13] MEDS: Ascorbic Acid 500 MG TABLET PO (08:23)
[2023-02-13] MEDS: Dextroamphetamine/Amphetamine XR 10 MG CAP.ER.24H PO (08:23)
[2023-02-13] MEDS: Ferrous Sulfate 324 MG TABLET.DR PO (08:23)
[2023-02-13] MEDS: methADONE HCl 20 MG/2 ML ORAL.CONC 125 MG PO (08:25)
[2023-02-13] MEDS: LORazepam 1 MG TABLET PO ×3 (09:18→19:22)
[2023-02-13] MEDS: Ibuprofen 600 MG TABLET PO ×2 (09:18→19:22)
[2023-02-13] MEDS: Amphetamine Mixed Salts 10 MG TABLET PO (13:30)
[2023-02-13] MEDS: Acetaminophen 325 MG TABLET 650 MG PO (14:32)
[2023-02-13 17:44] VITALS: BP 145/88; PULSE 70; RESP 18; TEMP 36.1; O2SAT 100
[2023-02-13] MEDS: cloNIDine HCL 0.1 MG TABLET 0.05 MG PO (19:22)
[2023-02-13] MEDS: Lithium Carbonate ER 300 MG TABLET.ER PO (19:22)
[2023-02-13] MEDS: Zolpidem Tartrate 5 MG TABLET 10 MG PO (19:24)
--- NOTE | 2023-02-13 19:47 | P.PNPSI_ITS ---
Subjective Subjective Date of Service: 02/13/23 Reason For Visit: Suicidal ideation Interim History: Met with patient; discussed with team Patient reports improvement with Adderall. She reports she feels the effects of Adderall wearing off midday. She reports taking a midday dose in the past. She feels more focused, less distracted, denies worsening of AH. Slept well. She is more engaged although today was more fearful related to another patient's behavior on the unit which was scary for her. Denies SI/HI. Review of Systems Review of Systems Constitutional : No Weight loss, No Fever, No Chills, No Fatigue, No Malaise ENT/Mouth : No sore throat, No Rhinorrhea Eyes: No Eye Pain, No Swelling, No Redness Cardiovascular : No Chest Pain, No SOB, No Dyspnea on Exertion, No Orthopnea, No Edema, No Palpitations Respiratory : No Cough, No Sputum, No Wheezing Gastrointestinal : No Nausea, No Vomiting, No Diarrhea, No Constipation, No abdominal Pain, No Hematochezia, No Melena Genitourinary : No Dysuria, No Urinary Frequency, No Hematuria, Musculoskeletal : No joint pain, No Myalgias, No Joint Swelling Skin : No Skin Lesions, No rash Neuro : No Weakness, No Numbness, No Dizziness, No Headache Psych : + Anxiety/Panic, + Depression, + SI All other systems reviewed and are negative Yes all other systems are reviewed and are negative Mental Status Exam Mental Status Exam Narrative: Pt is alert and oriented; behavior is cooperative, calm; appropriately dressed in casual attire, well groomed; mood is described as little better and affect congruent, calm, brighter; eye contact appropriate; Speech is normal rate, volume and prosody and not pressured; some psychomotor retardation present; thought process is organized and goal directed; Thought content is dealing with depression, symptoms, AH; otherwise pertinent to relevant topics and without any delusional content, paranoid ideations or grandiosity; no SI; no HI. Positive for AH but lessening Patients insight and judgment fair. Patient Appearance: Well Grooomed and Appropriate Patient Orientation: Person, Place, Time and Situation Level of Consciousness: Awake and Alert Patient Behavior: Appropriate, Timid, Anxious, Fearful and Good Eye Contact Mood Description: Constricted, Fearful, Anxious and Nervous Affect Description: Anxious Ability to Follow Directions: Excellent Speech Pattern: Clear Memory Description: Intact Diagnostics Vital Signs (24Hr): Vital Signs - 24 hr 02/13/23 08:16 02/13/23 17:44 Temperature 97.2 F 97.0 F Pulse Rate 92 70 Respiratory Rate 18 18 Blood Pressure 117/84 145/88 H Pulse Oximetry 99 100 Oxygen Delivery Method Room Air Room Air BMI result Body Mass Index 25.0 Labs 01/28/23 17:40 02/13/23 07:01 Labs: Laboratory Results - last 48 hr 02/13/23 02/13/23 07:01 07:01 BUN 19 H Creatinine 0.79 Estim Creat Clear Calc 74.7 Estimated GFR > 60 TSH 2.43 [place] 0.44 L Medications Medications Current Medications Acetaminophen (Acetaminophen 325 Mg Tablet) 650 mg PO Q6H PRN PRN Reason: Headache/Pain Mild Scale (1-3) Last Admin: 02/13/23 14:32 Dose: 650 mg Al Hydroxide/Mg Hydroxide (Magnesium Hydrox/Alum Hydrox 30 Ml Oral.Susp) 30 ml PO Q6H PRN PRN Reason: Heartburn/Nausea Amphetamine/Dextroamphetamine (Dextroamphetamine/Amphetamine Xr 10 Mg Cap.Er.24h) 10 mg PO DAILY [facility] Last Admin: 02/13/23 08:23 Dose: 10 mg Amphetamine/Dextroamphetamine (Amphetamine Mixed Salts 10 Mg Tablet) 10 mg PO DAILY [facility] Last Admin: 02/13/23 13:30 Dose: 10 mg Ascorbic Acid (Ascorbic Acid 500 Mg Tablet) 500 mg PO DAILY [facility] Last Admin: 02/13/23 08:23 Dose: 500 mg Benztropine Mesylate (Benztropine Mesylate 1 Mg Tablet) 1 mg PO TID PRN PRN Reason: EPS/Dystonia Clonidine HCl (Clonidine Hcl 0.1 Mg Tablet) 0.05 mg PO BEDTIME [facility]; Protocol Last Admin: 02/13/23 19:22 Dose: 0.05 mg Clonidine HCl (Clonidine Hcl 0.1 Mg Tablet) 0.05 mg PO Q4H PRN; Protocol PRN Reason: anxiety Last Admin: 02/12/23 16:15 Dose: 0.05 mg Ferrous Sulfate (Ferrous Sulfate 324 Mg Tablet.Dr) 324 mg PO DAILY [facility] Last Admin: 02/13/23 08:23 Dose: 324 mg Fluoxetine HCl (Fluoxetine Hcl 20 Mg Capsule) 60 mg PO DAILY [facility] Last Admin: 02/13/23 08:23 Dose: 60 mg Ibuprofen (Ibuprofen 600 Mg Tablet) 600 mg PO Q8H PRN PRN Reason: Pain, Mild (Pain Scale 1-3) Last Admin: 02/13/23 19:22 Dose: 600 mg [place] Carbonate ([place] Carbonate Er 300 Mg Tablet.Er) 300 mg PO BEDTIME [facility] Last Admin: 02/13/23 19:22 Dose: 300 mg Lorazepam (Lorazepam 1 Mg Tablet) 1 mg PO TID PRN PRN Reason: anxiety Last Admin: 02/13/23 19:22 Dose: 1 mg Magnesium Hydroxide (Milk Of Magnesia 30 Ml Oral.Susp) 30 ml PO DAILY PRN PRN Reason: Constipation Last Admin: 02/04/23 16:28 Dose: 30 ml Methadone HCl (Methadone Hcl 20 Mg/2 Ml Oral.Conc) 125 mg PO DAILY [facility] Last Admin: 02/13/23 08:25 Dose: 125 mg Pharmacy Consult (Consult Rx Perform Med Rec) 1 each MISCELLANE ONCE PRN PRN Reason: Consult order Senna/Docusate Sodium (Sennosides/Docusate Sodium Tablet) 1 tab PO DAILY PRN PRN Reason: constipation Last Admin: 02/12/23 19:29 Dose: 1 tab Sumatriptan Succinate (Sumatriptan Succinate 50 Mg Tablet) 50 mg PO DAILY PRN PRN Reason: migraine Zolpidem Tartrate (Zolpidem Tartrate 5 Mg Tablet) 10 mg PO BEDTIME PRN PRN Reason: Insomnia Last Admin: 02/13/23 19:24 Dose: 10 mg Allergies Allergies Allergy/AdvReac Type Severity Reaction Status Date / Time diphenhydramine Allergy Severe RASH Verified 12/26/22 21:20 [From BENADRYL] trazodone [TRAZODONE] AdvReac Severe DYSTONIC Verified 12/26/22 21:20 risperidone [Risperdal] AdvReac Unknown Dystonia Verified 12/26/22 21:20 Assessment & Plan Assessment & Plan (1) MDD (major depressive disorder), recurrent episode, severe: Status: Acute Code(s): F33.2 - Major depressive disorder, recurrent severe without psychotic features (2) PTSD (post-traumatic stress disorder): Status: Acute Code(s): F43.10 - Post-traumatic stress disorder, unspecified (3) Opioid use disorder: Status: Acute Code(s): F11.90 - Opioid use, unspecified, uncomplicated (4) Cocaine use disorder: Status: Acute Code(s): F14.10 - Cocaine abuse, uncomplicated Plan 47 year old female with a history of PTSD, depression, polysubstance use disorder including opioids on methadone, presents with increased depression and subacute onset of CAH to cut herself. Patient has had at least 3 recent psyc hiatric admissions for increased depression but her AH are new to her per her report. Self harm had been quiescent since adolescence. Hospital course: 02/01 Patient reports continued depression. Continued intermittent auditory hallucinations however they mostly occur during dreams; they do happen during the daytime but patient says that she will be doing something mundane, like watching television and then zone out and when zoned out she will hear a voice saying negative things like kill yourself, you are worthless... etc.. It is 1 voice that she does not recognize. Patient knows it is not real and that it is just a hallucination however it is so bothersome that she started superficially cutting to distract herself. Patient reports she has never had auditory hallucinations before. But she reports history of zoning out which sounds like dissociative episodes. Patient anxious about taking antipsychotic medications saying she has had numerous negative side effects from medications including dystonic reaction. She is amenable to medication management however. Patient shared recent history and said that after admission on M5 she did okay for a little while but got depressed again and was readmitted to 3; she said Prozac increased however depression and anxiety remained. She does not think that auditory hallucinations coincide with increased Prozac. Patient denies any history of manic episodes or symptoms. Discussed cocaine abuse and says it is usually only a few times a month at most. Discussed long history of unprocessed trauma and how it is no longer able to be ignored 02/02 patient remains very depressed; worries she is going crazy due to AH which remain during dreams or when she is waking up and continued to be mood congruent. Patient shared details about her history of trauma which she has never processed. Patient starting to make connections between current symptoms and history. 02/03, patient remains depressed with intermittent AH; reports history of dystonic reaction x4 from antipsychotic and does not want to risk 5th time. 02/04 patient agrees to try BuSpar 02/05 continue treatment plan 02/06/23 add ativan 1 mg qd prn anxiety Impression: AH seems most likely mood congruent due to worsening depression and PTSD; AH happens mostly during nightmares; daytime occurrences are during a dissociative episode. No associated manic symptoms with increased Prozac. -Given that this is most likely mood congruent AH and Since patient has tolerated Prozac, (and is hesitant to try antipsychotics) will titrate Prozac to 60 mg (patient was taking 40 mg up until day of admission was lowered to 20 mg); discussed risks and side effects of this approach which patient agrees with and accepts. 02/07 Will start lithium; no changes in symptoms and patient remains resistant to trying most medications. She continues to report no SI. At past admission it seemed that Prozac was helpful; however at higher dose it does not seem to have made any difference. Since started lithium will keep Prozac as is but would also consider either changing to another antidepressant or possibly restarting Lamictal in its place. 02/08: Patient denies having any side effects from lithium. She is hopeful regarding this medication. Continues to have AH throughout the day. Continue with current treatment plan. 02/09: Patient reports feeling tired today d/t getting her menstrual cycle. Pt denies having any AH today. Continue with current treatment plan. 02/10 symptoms improving with start of [place]. AH less and mood better. Continue current plan for now; consider lamictal if prozac deemed not effective 02/11 symptoms remain improving with lithium; mood better; AH remains but continues to be less. Patient asks for 3rd time if she could have a trial of Adderall before she leaves early next week; chart writer agreed to started this weekend; patient said she would not take it if it for any reason made AH worse. Patient understands she will not be discharged on this medication but it is just for a trial purpose to see if it is effective. Double Spindle Shaper Operator reviewed patient's social history. Patient lives at home with her ex partner who is stable, sober and whom she considers her best friend. 02/12: Continue current treatment plan. Increase Ativan 1 mg TID PRN (i.e. added HS PRN dose for insomnia.). Will reassess. 02/13: Add midday dose of Adderall 10 mg. Dx: MDD, recurrent, severe with psychotic features PTSD exacerbation with dissociative episodes cocain use disorder, mild to moderate PLAN: Admit to M5 CV Triall of Adderall xl 10mg daily Continue [place] ER 300mg qhs as augmentation Continue Prozac to 60 mg daily Schedule clonidine 0.05 mg q.h.s. for trouble with sleep and nightmares (prazosin causes headache) DC Thorazine; patient decided does not want to Consider Lamictal... otherwise: Milieu therapy Aftercare plan with therapist medication history: -Risperdal caused dystonia -Seroquel caused excessive sedation -[place] had no side effects however she can not remember if it was helpful or not. -prazosin causes headache -Wellbutrin, Celexa, Remeron, trazodone:? Patient says that either did not work or adverse reaction Reason for continued inpatient stay Substantial Risk for: harm to self, inability to function and rapid decompensation Time Spent With Patient Time: Total time managing care of this patient today ____ minutes.
[2023-02-14] MEDS: LORazepam 1 MG TABLET PO ×3 (02:52→18:58)
[2023-02-14] MEDS: Acetaminophen 325 MG TABLET 650 MG PO (02:52)
[2023-02-14 06:00] VITALS: BP 130/84; PULSE 69; RESP 16; TEMP 36.7; O2SAT 99
[2023-02-14] MEDS: SUMAtriptan succinate 50 MG TABLET PO (08:32)
--- NOTE | 2023-02-14 08:33 | HO.PSYCHPN ---
Subjective Subjective Date of Service: 02/14/23 Reason For Visit: Suicidal ideation Interim History: Met with patient; discussed with team; reviewed progress notes Patient reports depression remains resolved and that she is in a good mood. No AH since last week. Patient was nauseous and vomited this morning but that too has resolved. Patient shared how much Adderall helped her think clearly and be organized; she said she went to all the groups and never enjoyed them so much, being able to pay attention and focus her thoughts. Patient understood that this medication, Adderall was not going to be continued on discharge but she was hopeful that her outpatient provider would be willing to restart it after they establish a relationship. Patient tolerating medication well. Future oriented and looking forward to discharge. Mental Status Exam Mental Status Exam Narrative: Pt is alert and oriented; behavior is cooperative, calm; appropriately dressed in casual attire, well groomed; mood is described as good and affect congruent, calm, brighter; eye contact appropriate; Speech is normal rate, volume and prosody and not pressured; no psychomotor retardation present; thought process is organized and goal directed; Thought content is aftercare plans; otherwise pertinent to relevant topics and without any delusional content, paranoid ideations or grandiosity; no SI; no HI. AH resolved Patients insight and judgment fair. Diagnostics Vital Signs (24Hr): Vital Signs - 24 hr 02/13/23 17:44 02/14/23 06:00 Temperature 97.0 F 98.1 F Pulse Rate 70 69 Respiratory Rate 18 16 Blood Pressure 145/88 H 130/84 Pulse Oximetry 100 99 Oxygen Delivery Method Room Air Room Air BMI result Body Mass Index 25.0 Labs 01/28/23 17:40 02/13/23 07:01 Labs: Laboratory Results - last 48 hr 02/13/23 02/13/23 07:01 07:01 BUN 19 H Creatinine 0.79 Estim Creat Clear Calc 74.7 Estimated GFR > 60 TSH 2.43 [place] 0.44 L Medications Medications Current Medications Acetaminophen (Acetaminophen 325 Mg Tablet) 650 mg PO Q6H PRN PRN Reason: Headache/Pain Mild Scale (1-3) Last Admin: 02/14/23 02:52 Dose: 650 mg Al Hydroxide/Mg Hydroxide (Magnesium Hydrox/Alum Hydrox 30 Ml Oral.Susp) 30 ml PO Q6H PRN PRN Reason: Heartburn/Nausea Amphetamine/Dextroamphetamine (Dextroamphetamine/Amphetamine Xr 10 Mg Cap.Er.24h) 10 mg PO DAILY [facility] Last Admin: 02/13/23 08:23 Dose: 10 mg Amphetamine/Dextroamphetamine (Amphetamine Mixed Salts 10 Mg Tablet) 10 mg PO DAILY [facility] Last Admin: 02/13/23 13:30 Dose: 10 mg Ascorbic Acid (Ascorbic Acid 500 Mg Tablet) 500 mg PO DAILY [facility] Last Admin: 02/13/23 08:23 Dose: 500 mg Benztropine Mesylate (Benztropine Mesylate 1 Mg Tablet) 1 mg PO TID PRN PRN Reason: EPS/Dystonia Clonidine HCl (Clonidine Hcl 0.1 Mg Tablet) 0.05 mg PO BEDTIME [facility]; Protocol Last Admin: 02/13/23 19:22 Dose: 0.05 mg Clonidine HCl (Clonidine Hcl 0.1 Mg Tablet) 0.05 mg PO Q4H PRN; Protocol PRN Reason: anxiety Last Admin: 02/12/23 16:15 Dose: 0.05 mg Ferrous Sulfate (Ferrous Sulfate 324 Mg Tablet.Dr) 324 mg PO DAILY [facility] Last Admin: 02/13/23 08:23 Dose: 324 mg Fluoxetine HCl (Fluoxetine Hcl 20 Mg Capsule) 60 mg PO DAILY [facility] Last Admin: 02/13/23 08:23 Dose: 60 mg Ibuprofen (Ibuprofen 600 Mg Tablet) 600 mg PO Q8H PRN PRN Reason: Pain, Mild (Pain Scale 1-3) Last Admin: 02/13/23 19:22 Dose: 600 mg [place] Carbonate ([place] Carbonate Er 300 Mg Tablet.Er) 300 mg PO BEDTIME [facility] Last Admin: 02/13/23 19:22 Dose: 300 mg Lorazepam (Lorazepam 1 Mg Tablet) 1 mg PO TID PRN PRN Reason: anxiety Last Admin: 02/14/23 02:52 Dose: 1 mg Magnesium Hydroxide (Milk Of Magnesia 30 Ml Oral.Susp) 30 ml PO DAILY PRN PRN Reason: Constipation Last Admin: 02/04/23 16:28 Dose: 30 ml Methadone HCl (Methadone Hcl 20 Mg/2 Ml Oral.Conc) 125 mg PO DAILY [facility] Last Admin: 02/13/23 08:25 Dose: 125 mg Pharmacy Consult (Consult Rx Perform Med Rec) 1 each MISCELLANE ONCE PRN PRN Reason: Consult order Senna/Docusate Sodium (Sennosides/Docusate Sodium Tablet) 1 tab PO DAILY PRN PRN Reason: constipation Last Admin: 02/12/23 19:29 Dose: 1 tab Sumatriptan Succinate (Sumatriptan Succinate 50 Mg Tablet) 50 mg PO DAILY PRN PRN Reason: migraine Zolpidem Tartrate (Zolpidem Tartrate 5 Mg Tablet) 10 mg PO BEDTIME PRN PRN Reason: Insomnia Last Admin: 02/13/23 19:24 Dose: 10 mg Allergies Allergies Allergy/AdvReac Type Severity Reaction Status Date / Time diphenhydramine Allergy Severe RASH Verified 12/26/22 21:20 [From BENADRYL] trazodone [TRAZODONE] AdvReac Severe DYSTONIC Verified 12/26/22 21:20 risperidone [Risperdal] AdvReac Unknown Dystonia Verified 12/26/22 21:20 Assessment & Plan Assessment & Plan (1) MDD (major depressive disorder), recurrent episode, severe: Status: Acute Code(s): F33.2 - Major depressive disorder, recurrent severe without psychotic features (2) PTSD (post-traumatic stress disorder): Status: Acute Code(s): F43.10 - Post-traumatic stress disorder, unspecified (3) Opioid use disorder: Status: Acute Code(s): F11.90 - Opioid use, unspecified, uncomplicated (4) Cocaine use disorder: Status: Acute Code(s): F14.10 - Cocaine abuse, uncomplicated Plan 47 year old female with a history of PTSD, depression, polysubstance use disorder including opioids on methadone, presents with increased depression and subacute onset of CAH to cut herself. Patient has had at least 3 recent psychiatric admissions for increased depression but her AH are new to her per her report. Self harm had been quiescent since adolescence. Hospital course: 02/01 Patient reports continued depression. Continued intermittent auditory hallucinations however they mostly occur during dreams; they do happen during the daytime but patient says that she will be doing something mundane, like watching television and then zone out and when zoned out she will hear a voice saying negative things like kill yourself, you are worthless... etc.. It is 1 voice that she does not recognize. Patient knows it is not real and that it is just a hallucination however it is so bothersome that she started superficially cutting to distract herself. Patient reports she has never had auditory hallucinations before. But she reports history of zoning out which sounds like dissociative episodes. Patient anxious about taking antipsychotic medications saying she has had numerous negative side effects from medications including dystonic reaction. She is amenable to medication management however. Patient shared recent history and said that after admission on M5 she did okay for a little while but got depressed again and was readmitted to M 3; she said Prozac increased however depression and anxiety remained. She does not think that auditory hallucinations coincide with increased Prozac. Patient denies any history of manic episodes or symptoms. Discussed cocaine abuse and says it is usually only a few times a month at most. Discussed long history of unprocessed trauma and how it is no longer able to be ignored 02/02 patient remains very depressed; worries she is going crazy due to AH which remain during dreams or when she is waking up and continued to be mood congruent. Patient shared details about her history of trauma which she has never processed. Patient starting to make connections between current symptoms and history. 02/03, patient remains depressed with intermittent AH; reports history of dystonic reaction x4 from antipsychotic and does not want to risk 5th time. 02/04 patient agrees to try BuSpar 02/05 continue treatment plan 02/06/23 add ativan 1 mg qd prn anxiety Impression: AH seems most likely mood congruent due to worsening depression and PTSD; AH happens mostly during nightmares; daytime occurrences are during a dissociative episode. No associated manic symptoms with increased Prozac. -Given that this is most likely mood congruent AH and Since patient has tolerated Prozac, (and is hesitant to try antipsychotics) will titrate Prozac to 60 mg (patient was taking 40 mg up until day of admission was lowered to 20 mg); discussed risks and side effects of this approach which patient agrees with and accepts. 02/07 Will start lithium; no changes in symptoms and patient remains resistant to trying most medications. She continues to report no SI. At past admission it seemed that Prozac was helpful; however at higher dose it does not seem to have made any difference. Since started lithium will keep Prozac as is but would also consider either changing to another antidepressant or possibly restarting Lamictal in its place. 02/08: Patient denies having any side effects from lithium. She is hopeful regarding this medication. Continues to have AH throughout the day. Continue with current treatment plan. 02/09: Patient reports feeling tired today d/t getting her menstrual cycle. Pt denies having any AH today. Continue with current treatment plan. 02/10 symptoms improving with start of [place]. AH less and mood better. Continue current plan for now; consider lamictal if prozac deemed not effective 02/11 symptoms remain improving with lithium; mood better; AH remains but continues to be less. 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 Patient understands she will not be discharged on this medication but it is just for a trial purpose to see if it is effective. Cutting Torch Operator reviewed patient's social history. Patient lives at home with her ex partner who is stable, sober and whom she considers her best friend. 02/12: Continue current treatment plan. Increase Ativan 1 mg TID PRN (i.e. added HS PRN dose for insomnia.). Will reassess. 02/13: Add midday dose of Adderall 10 mg. 02/14 Patient reports depression remains resolved and that she is in a good mood. No AH since last week. Patient was nauseous and vomited this morning but that too has resolved. Patient shared how much Adderall helped her think clearly and be organized; she said she went to all the groups and never enjoyed them so much, being able to pay attention and focus her thoughts. Patient understood that this medication, Adderall was not going to be continued on discharge but she was hopeful that her outpatient provider would be willing to restart it after they establish a relationship. Patient tolerating medication well. Future oriented and looking forward to discharge. Patient is not in imminent risk for harm to self or others and appropriate to continue treatment in the community. Dx: MDD, recurrent, severe with psychotic features PTSD exacerbation with dissociative episodes cocain use disorder, mild to moderate PLAN: Admit to M5 CV Triall of Adderall xl 10mg daily Continue [place] ER 300mg qhs as augmentation Continue Prozac to 60 mg daily Schedule clonidine 0.05 mg q.h.s. for trouble with sleep and nightmares (prazosin causes headache) DC Thorazine; patient decided does not want to Consider Lamictal... otherwise: Milieu therapy Aftercare plan with therapist medication history: -Risperdal caused dystonia -Seroquel caused excessive sedation -[place] had no side effects however she can not remember if it was helpful or not. -prazosin causes headache -Wellbutrin, Celexa, Remeron, trazodone:? Patient says that either did not work or adverse reaction Patient educated on: diagnosis, medication risk/benefits, substance abuse and therapeutic strategies Informed Consent: understands Reason for continued inpatient stay Substantial Risk for: stable for discharge Time Spent With Patient Time: Total time managing care of this patient today ____ minutes.
--- NOTE | 2023-02-14 08:36 | PC.NURSE ---
PT reports vomiting 3x overnight and headache 06/14. VS stable. PT requested Imitrex PRN for migraine, given a@ 08:32, effect pending.
[2023-02-14] MEDS: FLUoxetine HCl 20 MG CAPSULE 60 MG PO (11:01)
[2023-02-14] MEDS: Ascorbic Acid 500 MG TABLET PO (11:01)
[2023-02-14] MEDS: Dextroamphetamine/Amphetamine XR 10 MG CAP.ER.24H PO (11:01)
[2023-02-14] MEDS: Ferrous Sulfate 324 MG TABLET.DR PO (11:01)
[2023-02-14] MEDS: methADONE HCl 20 MG/2 ML ORAL.CONC 125 MG PO (11:02)
--- NOTE | 2023-02-14 12:16 | PC.NURSE ---
Imitrex had + effect, PT was able to take morning meds and keep down.
[2023-02-14] MEDS: Zolpidem Tartrate 5 MG TABLET 10 MG PO (18:57)
[2023-02-14] MEDS: cloNIDine HCL 0.1 MG TABLET 0.05 MG PO (18:58)
[2023-02-14 19:07] VITALS: BP 109/76; PULSE 71
[2023-02-15] MEDS: Acetaminophen 325 MG TABLET 650 MG PO ×2 (00:01→09:16)
[2023-02-15] MEDS: LORazepam 1 MG TABLET PO ×2 (06:38→09:16)
[2023-02-15] MEDS: Ascorbic Acid 500 MG TABLET PO (09:15)
[2023-02-15] MEDS: FLUoxetine HCl 20 MG CAPSULE 60 MG PO (09:15)
[2023-02-15] MEDS: Ferrous Sulfate 324 MG TABLET.DR PO (09:16)
[2023-02-15] MEDS: Dextroamphetamine/Amphetamine XR 10 MG CAP.ER.24H PO (09:16)
[2023-02-15] MEDS: methADONE HCl 20 MG/2 ML ORAL.CONC 125 MG PO (09:17)
[2023-02-15 09:23] VITALS: BP 116/84; PULSE 111; RESP 16; TEMP 36.8; O2SAT 99
--- NOTE | 2023-02-15 10:37 | PM.PSYDC ---
DS: Providers Provider Date of Service: 02/15/23 Date of admission: 01/29/23 15:54 Date of discharge: 02/15/23 Primary care physician: Unknown Physician Attending physician on admission: Joseluis Shafer Attending physician on discharge: Joseluis Shafer DS: Diagnosis Discharge Diagnosis (1) MDD (major depressive disorder), recurrent episode, severe: Status: Acute (2) PTSD (post-traumatic stress disorder): Status: Acute (3) Opioid use disorder: Status: Acute (4) Cocaine use disorder: Status: Acute DS: Medications Discharge Medications Home Medications: Home Medications Medication Instructions Recorded Confirmed methadone 10 mg/mL oral concentrate 128 mg PO DAILY 12/12/22 01/29/23 fluoxetine 20 mg capsule 40 mg PO DAILY 01/28/23 01/28/23 gabapentin 300 mg capsule 300 mg PO TID 01/28/23 01/28/23 ibuprofen 200 mg tablet 400 mg PO Q8H PRN pain 01/28/23 01/28/23 prazosin 1 mg capsule 1 mg PO BEDTIME 01/28/23 01/28/23 Previous Rx's Medication Instructions Recorded ascorbic acid (vitamin C) 500 mg 500 mg PO DAILY 30 days #30 tabs 02/15/23 tablet (Vitamin C) clonidine HCl 0.1 mg tablet 0.05 mg PO TID PRN 02/15/23 anxiety/insomnia 30 days #90 tabs ferrous sulfate 324 mg (65 mg 324 mg PO DAILY 30 days #30 tabs 02/15/23 iron) tablet,delayed release fluoxetine 20 mg capsule 60 mg PO DAILY 30 days #90 caps 02/15/23 lithium carbonate 300 mg 300 mg PO BEDTIME 30 days #30 tabs 02/15/23 tablet,extended release lorazepam 1 mg tablet 1 mg PO BID PRN anxiety 14 days 02/15/23 #28 tabs sennosides 8.6 mg-docusate sodium 1 tab PO DAILY PRN constipation 30 02/15/23 50 mg tablet (Senexon-S) days #30 tabs sumatriptan succinate 50 mg tablet 50 mg PO DAILY PRN migraine 30 02/15/23 days #8 tabs zolpidem 10 mg tablet 10 mg PO BEDTIME PRN insomnia 30 02/15/23 days #30 tabs Mental Status Exam Mental Status Exam Narrative: Pt is alert and oriented; behavior is cooperative, calm; appropriately dressed in casual attire, well groomed; mood is described as good and affect congruent, calm, brighter; eye contact appropriate; Speech is normal rate, volume and prosody and not pressured; no psychomotor retardation present; thought process is organized and goal directed; Thought content is aftercare plans; otherwise pertinent to relevant topics and without any delusional content, paranoid ideations or grandiosity; no SI; no HI. AH resolved Patients insight and judgment fair. Data Data Completed and Pending Completed studies during hospitalization [Text1]: 02/11/23 02/13/23 02/13/23 08:48 07:01 07:01 BUN 19 H Creatinine 0.79 Estim Creat Clear Calc 74.7 Estimated GFR > 60 TSH 2.43 Dooling 0.32 L 0.44 L DS: Summary Hospital Course Hospital Course: 47 year old female with a history of PTSD, depression, polysubstance use disorder including opioids on methadone, presents with increased depression and subacute onset of CAH to cut herself. Patient has had at least 3 recent psychiatric admissions for increased depression but her AH are new to her per her report. Self harm had been quiescent since adolescence. Hospital course: On admission patient was depressed and reporting AH of a single voice saying mean things.? AH seems most likely mood congruent due to worsening depression and PTSD; AH happens mostly during nightmares; daytime occurrences are during a dissociative episode.? No associated manic symptoms with increased Prozac.?-Given that this is most likely mood congruent AH and Since patient has tolerated Prozac, (and is hesitant to try antipsychotics) will titrate Prozac to 60 mg (patient was taking 40 mg up until day of admission was lowered to 20 mg); discussed risks and side effects of this approach which patient agrees with and accepts. 02/01 Patient reports continued depression.? Continued intermittent auditory hallucinations however they mostly occur during dreams; they do happen during the daytime but patient says that she will be doing something mundane, like watching television and then zone out and when zoned out she will hear a voice saying negative things like kill yourself, you are worthless... etc..? It is 1 voice that she does not recognize.? Patient knows it is not real and that it is just a hallucination however it is so bothersome that she started superficially cutting to distract herself.? Patient reports she has never had auditory hallucinations before.? But she reports history of zoning out which sounds like dissociative episodes.? Patient anxious about taking antipsychotic medications saying she has had numerous negative side effects from medications including dystonic reaction.? She is amenable to medication management however. ? Patient shared recent history and said that after admission on M5 she did okay for a little while but got depressed again and was readmitted to [facility]; she said Prozac increased however depression and anxiety remained.? She does not think that auditory hallucinations coincide with increased Prozac.? Patient denies any history of manic episodes or symptoms.? Discussed cocaine abuse and says it is usually only a few times a month at most.? Discussed long history of unprocessed trauma and how it is no longer able to be ignored 02/02 patient remains very depressed; worries she is going crazy due to AH which remain during dreams or when she is waking up and continued to be mood congruent.? Patient shared details about her history of trauma which she has never processed.? Patient starting to make connections between current symptoms and history. 02/03, patient remains depressed with intermittent AH; reports history of dystonic reaction x4 from antipsychotic and does not want to risk 5th time. 02/04 patient agrees to try BuSpar but thought it caused tremor ? 02/07 Retry lithium: decided to retry lithium which he had taken in the past since otherwise no reduction in symptoms and patient remains resistant to trying most medications.? She continues to report no SI.? At past admission it seemed that Prozac was helpful; however at higher dose it does not seem to have made any difference.? Since started lithium will keep Prozac as is but would also consider either changing to another antidepressant or possibly restarting Lamictal in its place. 02/08: Patient denies having any side effects from lithium. She is hopeful regarding this medication. Continues to have AH throughout the day. Continue with current treatment plan. 02/09: Patient reports feeling tired today d/t getting her menstrual cycle. Pt denies having any AH today. Continue with current treatment plan. 02/10 symptoms improving with start of Dooling. AH less and mood better. Continue current plan for now; consider lamictal if prozac deemed not effective 02/11 symptoms remain improving with lithium; mood better; AH remains but continues to be less.? Patient asks for 3rd time if she could have a trial of Adderall before she leaves early next week; insurance writer agreed to started this weekend; patient said she would not take it if it for any reason made AH worse.? Patient understands she will not be discharged on this medication but it is just for a trial purpose to see if it is effective.? [employer] reviewed patient's social history.? Patient lives at home with her ex partner who is stable, sober and whom she considers her best friend. By the end of admission 02/14 Patient reports depression remains resolved and that she is in a good mood.? No AH since last week.? Patient was nauseous and vomited this morning but that too has resolved.? Patient shared how much Adderall helped her think clearly and be organized; she said she went to all the groups and never enjoyed them so much, being able to pay attention and focus her thoughts.? Patient understood that this medication, Adderall was not going to be continued on discharge but she was hopeful that her outpatient provider would be willing to restart it after they establish a relationship.? Patient tolerating medication well.? Future oriented and looking forward to discharge.? Patient is not in imminent risk for harm to self or others and appropriate to continue treatment in the community. Dx: MDD, recurrent, severe with psychotic features PTSD exacerbation with dissociative episodes? cocain use disorder, mild to moderate ADD: Patient had success with Adderall trial which she said helped her focus a thoughts and pay much more tension; she will discuss this with her outpatient provider medication history: -Risperdal caused dystonia -Seroquel caused excessive sedation -Dooling had no side effects however she can not remember if it was helpful or not. -prazosin causes headache -Wellbutrin, Celexa, Remeron, trazodone:? Patient says that either? did not work or adverse reaction -buspar: reports tremors Status at Discharge Functional status at discharge: independent ambulation Overall status at discharge: patient is back to baseline Time Spent with Patient Time attestation: Total time managing care of this patient today ____ minutes. Time spent: Less than 30 minutes Discharge Plan Discharge Anticipated Discharge Date/Time: 02/15/23 11:30 Patient Disposition: Home, Self-Care Discharge Diagnosis: MDD, recurrent, severe with psychotic symptoms, in full remission Referrals: [facility]: Partial Hospitalization Program(PHP) [Other] - 02/22/23 8:00 am (Scheduled Intake for [facility] Partial Hospitalization Program ) Heidi Thomson: [facility] (psychiatry) [Other] - 03/14/23 1:00 pm (Initial Psychiatric evaluation psychiatric medication provider Appointment is by tele-health) Heidi Thomson: [facility] (psychiatry) [Other] - 04/12/23 1:00 pm (Follow-up appointment with psychiatric medication provider Appointment is by tele-health) Oniel Sanches MD [Physician] - 03/02/23 9:00 am (in office) Discharge Medications: New methadone [Methadose] 10 mg/mL Concentrate 125 mg PO DAILY Qty: 0 0RF Rx Instructions: Partial Fill upon patient request. fluoxetine 20 mg Capsule 60 mg PO DAILY 30 Days Qty: 90 0RF lithium carbonate 300 mg Tablet Extended Release 300 mg PO BEDTIME 30 Days Qty: 30 0RF Continued ibuprofen 200 mg tablet 400 mg PO Q8H PRN (Reason: pain) clonidine HCl 0.1 mg tablet 0.05 mg PO TID PRN (Reason: anxiety/insomnia) 30 Days Qty: 90 0RF ferrous sulfate 324 mg (65 mg iron) tablet,delayed release (DR/EC) 324 mg PO DAILY 30 Days Qty: 30 0RF sennosides-docusate sodium [Senexon-S] 8.6-50 mg tablet 1 tab PO DAILY PRN (Reason: constipation) 30 Days Qty: 30 0RF sumatriptan succinate 50 mg tablet 50 mg PO DAILY PRN (Reason: migraine) 30 Days Qty: 8 0RF ascorbic acid (vitamin C) [Vitamin C] 500 mg tablet 500 mg PO DAILY 30 Days Qty: 30 0RF lorazepam 1 mg tablet 1 mg PO BID PRN (Reason: anxiety) 14 Days Qty: 28 1RF zolpidem 10 mg tablet 10 mg PO BEDTIME PRN (Reason: insomnia) 30 Days Qty: 30 0RF Discontinued prazosin 1 mg capsule 1 mg PO BEDTIME fluoxetine 20 mg capsule 40 mg PO DAILY gabapentin 300 mg capsule 300 mg PO TID methadone 10 mg/mL Concentrate 128 mg PO DAILY Rx Instructions: Patient has 12/26/22 with her in the bottle Discharge Orders: Discharge Order (Routine); Ordered 02/15/23 Ordered By: Joseluis Shafer Diet: Regular diet Activity on Discharge: As tolerated Stand Alone Forms: Patient Portal Discharge page, Community Support Care Plan Goals: Maintain mood and safe behaviors Take medications as prescribed Continue to pursue sobriety Practice coping skills Continue with outpatient providers and reach out to them as needed Health Concerns: Mood stability and behaviors Sobriety hx of migraines Plan of Treatment: Follow up with your PCP, psychiatric provider and other outpatient providers regarding above concerns Take medications as prescribed Regarding ADD symptoms: You had a successful trial with Adderall XL while on the unit. Follow up with your outpatient Psychiatric provider and discuss possibility of continuing this medication as an outpatient. Assessment: Risk assessment at time of discharge:? Patient was interviewed prior to discharge and found to be fully oriented and without any SI or HI. Patient has insight and demonstrates good judgment in terms of wanting to pursue treatment. Patient is not in imminent risk of harm to self or others and has a safety plan that includes presenting to the closest ER or calling 911 if feeling unsafe.? Patient has been observed closely by nursing and unit staff throughout admission; patient has not engaged in any behaviors that suggest dangerousness to self or others and has demonstrated appropriate behaviors and impulse control Discharge Date/Time: 02/15/23 11:30
== END 2023-02-15 11:30 | disposition home or self-care (01) | DRG 885 ==
LOC: HO.ED 19:05 → HO.PM5 01-29 16:02
PROVIDERS: Physician Assistant; Admitting Provider Psychiatry & Neurology Psychiatry; Emergency Provider Internal Medicine; Visit Provider Psychiatry & Neurology Psychiatry
DX: F33.3 Major depressive disorder, recurrent, severe with psychotic symptoms (principal); R45.851 Suicidal ideations; F11.20 Opioid dependence, uncomplicated; F14.10 Cocaine abuse, uncomplicated; K21.9 Gastro-esophageal reflux disease without esophagitis; F43.10 Post-traumatic stress disorder, unspecified; E03.9 Hypothyroidism, unspecified; Z20.822 Contact with and (suspected) exposure to COVID-19; Z79.899 Other long term (current) drug therapy
CPT/HCPCS: 36415; 80053; 80061; 80143; 80178; 80179; 80307; 81001; 81025; 82565; 82607; 82746; 83036; 83735; 84439; 84443; 84520; 85025; 87635; 93005; 99285; S9485

== ENCOUNTER 2025-07-17 14:05 | Inpatient (IN) | payer OTHER, SELFPAY ==
--- OUTSIDE RECORDS SUMMARY | 2025-07-02 16:59 | XMS_ITS | Encounter Summary ---
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 Name Role Phone Physician, Pcp Unknown Primary Care Provider Talia vailable Reason for Visit * Reason Comments Back Pain Left AMA this rossana g- admitted for Septic arthritis of L4-L5 with surrounding cellulitis * Auth/Cert (Routine) Specialty Diagnoses / Procedures Referred By Contac t Referred To Contact Diagnoses Septic arthritis of lumbar spine ([facility] V24) Procedures / Joe Dockery MD [address] [place] [phone] Phone: tel: fax: [facility] [address] [place] [phone] Phone: tel: Referral ID Status Reason Start Date Expiration Date Visits Re quested Visits Authorized [id number] 1 1 Encounter Details Date Type Department Care Team (Latest Contact Info) Description 07/02/2025 5:59 PM EDT - 07/16/2025 11:00 PM EST Hospital Encounter [facility] [address] [place] [phone] Adrian Rodriguez MD [address] [place] [address] Joe Dockery MD [address] [place] [phone] Enriqueta Dunaway MD [address] [place] [address] [phone] Suzette Alexandre MD [address] [place] [phone] Prabhjot Neely MD [address], [place] [phone] Sly Robbins MD [address] [place] [address] Sepsis due to methicillin resistant Staphylococcus aureus (MRSA) without acute organ dysfunction ([facility] V24, CMS/[facility] V28) (Primary Dx); Bacteremia; Septic arthritis of intervertebral joint (CMS/[facility] V24); Septic arthritis of lumbar spine ([facility] V24) Discharge Disposition: Left Against Medical Advice Social History Tobacco Use Types Packs/Day Years Used Date Smoking Tobacco: Never Smokeless Tobacco: Never Food Risk Answer Date Recorded Within the past 12 months we worried whether our food would run out before we got money to buy more. Never true 07/10/2025 Within the past 12 months th e food we bought just didn't last and we didn't have money to get more. Never true 07/10/2025 Interpersonal Safety Answer Date Record ed Physical Abuse Unrecognized value 07/02/2025 Verbal Abuse Unrecognized value 07/02/2025 Comments No Sex and Gender Information Value Date Recorded Sex Assigned at Not on file Legal Sex Female 9:04 AM EST Gender Identity Not on file Sexual Orientation Not on file documented as of this encounter Last Filed Vital Signs Vital Sign Reading Time Taken Comments Blood Pressure 126/94 07/16/2025 7:54 PM EST Pulse 82 07/16/2025 7:54 PM EST Temperature 36.9 C (98.4 F) 07/16/2025 7:54 PM EST Respiratory Rate 17 07/16/2025 7:54 PM EST Oxygen Saturation 100% 07/16/2025 7:54 PM EST Inhaled Oxygen Concentration - - Weight 54.1 kg (119 lb 3.2 oz) 07/02/2025 9:13 P M EDT Height 152.4 cm (5') 07/02/2025 9:13 PM EDT Body Mass Index 23.28 07/02/2025 9:13 PM EDT documented in this encounter Functional Status * Calculated C-SSRS Risk Score (Lifetime/Recent) Answer Date of Assessment Author No Risk Indicated 07/02/2025 5:49 PM EDT Kira Oliveira RN * Petroleum Suicide Severity Rating Scale (Screener/Recent Self-Report) Question Answer Date of Assessment Author 1. Wish to be (Past 1 Month) No 025 5:49 PM EDT Kira Plata RN 2. Non-Specific Active Suici tera Thoughts (Past 1 Month) No 07/02/2025 5:49 PM EDT Santi Plata, AMBER 6. Suicidal Behavior (Lifetime) No 5:49 PM EDT Kira Plata RN documented as of this encounter Discharge Summaries * VITALIY Guaman - 07/16/2025 10:29 PM EST Cross Coverage Event SITUATION: Patient leaving under patient directed discharge (AMA) EVALUATION: I received a message this evening from the nursing house steward/stewardess that Kathy has been found outside the hospital after she eloped from 558-1. She was in the front [facility] bathroom when I came downstairs to see Kathy. She reports increased anxiety surrounding her discharge planning and some family stress that led to her leaving the hospital this evening. She came down to the lobby and stood outside the sliding door behind the ER. She was unable to get back inside and ultimately walked to the front of the hospital. She is adamant she didn't leave the hospital campus. She would like to return back to her room upstairs. I advised her that the nursing stevedoring supervisor would come down to see her a nd offer her to return to the ED to be evaluated and likely admitted back into the hospital which she was agreeable to. PHYSICAL EXAM: Standing upright in the lobby Appears comfortable No gross resting tremor Pupils appear appropriate No increased work of breathing Alert and oriented Conversive appropriately ASSESSMENT AND PLAN: Since the patient has left the hospital, she will need to go to the ED for evaluation After evaluation in the ED, I would anticipate she needs re-admission She appeared clinically appropriate at the time of my assessment 2229 -- I was notified that when the house steward/stewardess arrived to the lobby with Kathy's belonging, she no longer wanted to stay in the hospital and be evaluated in the emergency department. She wanted to leave the hospital under patient directed discharge (AMA). The PICC line was removed by nursing in the lobby prior to leaving. Cosigned by Joe Dockery MD at 07/17/2025 12:10 AM EST * Sly Robbins MD - 07/16/2025 12:05 PM EST Images from the original note were not included. BERRY DISCHARGE SUMMARY Patient Information Kathy Ballard : 1975 [50 y.o.] Admitting Provider Joe Dockery MD Discharge Provider Sly Robbins MD, Sly Robbins MD Primary Care Physician Pcp Unknown Physician Admission Date 07/02/2025 Discharge Date 07/16/2025 Summary of Hospital Problems Primary Discharge Diagnosis: Septic arthritis of lumbar spine (CMS/[facility] V24) Secondary Discharge Diagnosis: Opioid use disorder Discharge Destination: SNF Code Status at Discharge: Full Code - Default Hospital Course Summary LOS: 14 days Patient is a 49 years old female with past medical history significant for IV drug use, opioid use disorder, chronic back pain, presented to the hospital with complaints of low back pain. Patient wasnoted with MRSA bacteremia and treated with IV vancomycin. Repeat blood cultures demonstrated clearance and infectious disease specialist recommended IV vancomycin to 08/30/2025. PICC line access placed and patient is stable to be transferred to rehab for completion of IV antibiotic therapy. # Septic arthritis L4/5 with surrounding cellulitis # MRSA bacteremia - Reviewed MRI lumbar spine obtained on 07/01/2025, findings suggestive of septic arthritis involving left L4-L5 facet joint with surrounding cellulitis. Also noted multilevel degenerative disc and facet disease as well as ligamentum flavum hypertrophy. Mild multilevel canal stenosis, multilevel mild to moderate foraminal stenosis. Neurosurgery was consulted and no surgical intervention recommended. Suggested outpatient follow-up in 6 weeks. And recommended to continue IV antibiotics. - Reviewed blood cultures, noted MRSA and repeat blood cultures have been negative. Infectious disease consulted and recommended IV vancomycin till August 30, 2025. # Polysubstance abuse, IV drug use - Addiction medicine consulted and patient interested in restarting methadone. - Discontinue buprenorphine and restart methadone per addiction medicine team. Methadone 50 mg p.o.daily # Major depressive disorder # Anxiety - Psychiatry consultation completed on 07/15/25. Recommended to increase the dose of Zoloft but patient declined, so we will continue Zoloft 25 mg p.o. daily. - Initiate Vraylar 1.5 mg p.o. daily for psychotic symptoms, depression regimen augmentation. - Patient does not meet criteria for section 12 or involuntary psychiatric admission per psychiatrist. - Patient also requested for Ambien while in the hospital. One-time Ambien ordered on 07/15/2025. Upon discharge no need for further Ambien for sleep given initiation of methadone. # Hepatitis C - Viral load greater than 800,000, HIV negative. ID recommending outpatient management. # Disposition - SNF given the need for IV antibiotics - Patient is medically stable to be transferred to SNF. field worker notified. Follow-Up Instructions and Recommendations Primary care provider (PCP) Pcp Unknown Physician Julianna Orozco MD [address] [place] [phone] [facility] [address] [phone] Discharge Procedure Orders Discharge Diet: Cardiac Heart Healthy Diet (Low Cholesterol / Low Fat / No Added Salt) Order Specific Question Answer Comments Discharge diet you should follow at home Cardiac Heart Healthy Diet (Low Cholesterol / Low Fat / NoAdded Salt) No restrictions, resume your usual activities Primary care provider (PCP) Order Specific Question Answer Comments Follow-Up as Needed Follow-Up as Needed Provider: Order Specific Question Answer Comments Follow-Up as Needed Follow-Up as Needed There are no outpatient Patient Instructions on file for this admission. Discharge Medications Your medication list START taking these medications Instructions Last Dose Given Next Dose Due acetaminophen 325 mg tablet Commonly known as: TYLENOL Take 2 tablets (650 mg total) by mouth every 4 (four) hours if needed for mild pain, headaches or fever - temperature GREATER than 38 C (100.4 F) for up to 10 days. ascorbic acid 250 mg tablet Commonly known as: VITAMIN C Start taking on: July 12, 2025 Take 1 tablet (250 mg total) by mouth 1 (one) time each day. buprenorphine-naloxone 2-0.5 mg per SL tablet Commonly known as: SUBOXONE Place 1 tablet under the tongue 2 (two) times a day. After the medication is completely dissolved, take a large sip of water, swish it around teeth and gums, and swallow. Wait at least 1 hour before brushing teeth to avoid damage to your teeth. Max Daily Amount: 2 tablets ferrous sulfate 325 mg (65 mg elemental iron) tablet Take 1 tablet (325 mg total) by mouth 2 (two) times a day. gabapentin 100 mg capsule Commonly known as: NEURONTIN Take 1 capsule (100 mg total) by mouth every 8 (eight) hours. sertraline 25 mg tablet Commonly known as: ZOLOFT Start taking on: July 12, 2025 Take 1 tablet (25 mg total) by mouth 1 (one) time each day. vancomycin 750 mg in sodium chloride 0.9 % 250 mL IVPB Infuse 750 mg into a venous catheter every 12 (twelve) hours for 101 doses. zolpidem 10 mg tablet Commonly known as: AMBIEN Take 1 tablet (10 mg total) by mouth at bedtime as needed for sleep. Max Daily Amount: 10 mg Where to Get Your Medications Information about where to get these medications is not yet available Ask your nurse or doctor about these medications acetaminophen 325 mg tablet ascorbic acid 250 mg tablet buprenorphine-naloxone 2-0.5 mg per SL tablet ferrous sulfate 325 mg (65 mg elemental iron) tablet gabapentin 100 mg capsule sertraline 25 mg tablet vancomycin 750 mg in sodium chloride 0.9 % 250 mL IVPB zolpidem 10 mg tablet Physical Exam at time of Discharge Physical Exam Constitutional: General: She is not in acute distress. Appearance: Normal appearance. She is not ill-appearing. HENT: Head: Normocephalic and atraumatic. Eyes: Conjunctiva/sclera: Conjunctivae normal. Cardiovascular: Rate and Rhythm: Normal rate and regular rhythm. Pulses: Normal pulses. Heart sounds: Normal heart sounds. Pulmonary: Effort: Pulmonary effort is normal. No respiratory distress. Breath sounds: Normal breath sounds. No wheezing. Abdominal: General: Bowel sounds are normal. There is no distension. Palpations: Abdomen is soft. Tenderness: There is no abdominal tenderness. There is no guarding. Skin: General: Skin is warm. Findings: Lesion present. Neurological: Mental Status: She is alert. Psychiatric: Mood and Affect: Mood normal. Behavior: Behavior normal. Vitals Visit Vitals BP 110/74 (BP Location: Left arm, Patient Position: Lying) Pulse 90 Temp 36.5 ??C (97.7 ??F) Resp 14 Temp (24hrs), Av.6 ??C (97.8 ??F), Min:36.5 ??C (97.7 ??F), Max:36.6 ??C (97.9 ??F) Body mass index is 23.28 kg/m??. No results found for: PTWT , PTHT * Prabhjot Neely MD - 07/14/2025 10:56 AM EST Images from the original note were not included. BERRY DISCHARGE SUMMARY Patient Information Kathy Ballard : 1975 [50 y.o.] Admitting Provider Joe Dockery MD Discharge Provider Prabhjot Neely MD, Prabhjot Neely MD Primary Care Physician Pcp Unknown Physician Admission Date 07/02/2025 Discharge Date 07/14/2025 Summary of Hospital Problems Primary Discharge Diagnosis: Septic arthritis of lumbar spine (CMS/[facility] V24) Discharge Destination: SNF Code Status at Discharge: Full Code - Default Hospital Course Summary LOS: 12 days 49-year-old female with a history of IV drug use, OUD maintained on methadone, acute worsening of chronic back pain, anemia of chronic disease and thyroid disease presents with low back pain in the setting of MRSA bacteremia. Patient was treated with IV vancomycin. Blood cultures from 07/05 demonstrated clearance. Last positive blood cultures were from 07/03 growing MRSA. TTE performed did not show any evidence of endocarditis. Infectious disease recommend IV vancomycin treatment till 08/30. PICC line access placed. Patient medically stable for SNF discharge for completion of IV antibiotic therapy pending acceptance. MRSA bacteremia Numerous skin ulcerations In the setting of known IV drug use and numerous skin ulcerations and open sores. Blood cultures from 07/03 growing MRSA Repeat blood cultures from 07/05 negative Continue IV vancomycin Infectious disease on board. Appreciate recommendations. Will need IV vancomycin till 08/30/2025 Septic arthritis of the L4/5 with surrounding cellulitis Appreciate neurosurgery input. No surgical intervention required at this time since pathogen is known and neuroexam is intact. They recommend office follow-up in 6 weeks. A small left central L5-S1 disc herniation was also noted. Treat underlying cause with IV antibiotics. Polysubstance abuse with withdrawal IVDU Generalized anxiety disorder Continue as needed analgesic, antipyretics and anxiety medication Addiction medicine evaluation appreciated. Continue Suboxone Started on sertraline 25 mg daily for anxiety. Patient has been intermittently refusing but agreeable to take it since 07/13 Severe iron deficiency anemia Monitor H&H Transfuse if hemoglobin falls below 7 Anemia panel consistent with iron deficiency. Continue iron supplementation Vaginal discharge Diflucan x 1 given Hepatitis C Viral load returns quantitative over 800,000. HIV was negative. ID recommends outpatient treatment Update 07/14/2025: Patient medically cleared for SNF discharge pending acceptance. Pending insurance authorization. Likely SNF discharge 07/15 Follow-Up Instructions and Recommendations Primary care provider (PCP) Pcp Unknown Physician Julianna Orozco MD [address] [place] [phone] [facility] [address] [facility] [phone] Discharge Procedure Orders Discharge Diet: Cardiac Heart Healthy Diet (Low Cholesterol / Low Fat / No Added Salt) Order Specific Question Answer Comments Discharge diet you should follow at home Cardiac Heart Healthy Diet (Low Cholesterol / Low Fat / NoAdded Salt) No restrictions, resume your usual activities Primary care provider (PCP) Order Specific Question Answer Comments Follow-Up as Needed Follow-Up as Needed Provider: Order Specific Question Answer Comments Follow-Up as Needed Follow-Up as Needed There are no outpatient Patient Instructions on file for this admission. Physical Exam at time of Discharge Physical Exam General : Pt lying in bed in no acute distress Head : NC/AT Eyes : EOMI Resp : CTA B/L CVS : RRR, no audible murmurs GI : Abd Soft, NT, ND, +BS Neuro : Alert and oriented x 3, follows commands Vitals Visit Vitals BP 131/87 (BP Location: Left arm) Pulse 69 Temp 36.8 ??C (98.3 ??F) (Temporal) Resp 15 Temp (24hrs), Av.7 ??C (98 ??F), Min:36 ??C (96.8 ??F), Max:37 ??C (98.6 ??F) Body mass index is 23.28 kg/m??. No results found for: PTWT , PTHT Greater than 30 minutes spent preparing this discharge, evaluating patient, discussing care plan with nursing and ICC. * Prabhjot Neely MD - 07/13/2025 11:09 AM EST Images from the original note were not included. BERRY DISCHARGE SUMMARY Patient Information Kathy Ballard : 1975 [50 y.o.] Admitting Provider Joe Dockery MD Discharge Provider Prabhjot Neely MD, Prabhjot Neely MD Primary Care Physician Pcp Unknown Physician Admission Date 07/02/2025 Discharge Date 07/13/2025 Summary of Hospital Problems Primary Discharge Diagnosis: Septic arthritis of lumbar spine ([facility] V24) Discharge Destination: SNF Code Status at Discharge: Full Code - Default Hospital Course Summary LOS: 11 days 49-year-old female with a history of IV drug use, OUD maintained on methadone, acute worsening of chronic back pain, anemia of chronic disease and thyroid disease presents with low back pain in the setting of MRSA bacteremia. Patient was treated with IV vancomycin. Blood cultures from 07/05 demonstrated clearance. Last positive blood cultures were from 07/03 growing MRSA. TTE performed did not show any evidence of endocarditis. Infectious disease recommend IV vancomycin treatment till 08/30. PICC line access placed. Patient medically stable for SNF discharge for completion of IV antibiotic therapy pending acceptance. MRSA bacteremia Numerous skin ulcerations In the setting of known IV drug use and numerous skin ulcerations and open sores. Blood cultures from 07/03 growing MRSA Repeat blood cultures from 07/05 negative Continue IV vancomycin Infectious disease on board. Appreciate recommendations. Will need IV vancomycin till 08/30/2025 Septic arthritis of the L4/5 with surrounding cellulitis Appreciate neurosurgery input. No surgical intervention required at this time since pathogen is known and neuroexam is intact. They recommend office follow-up in 6 weeks. A small left central L5-S1 disc herniation was also noted. Treat underlying cause with IV antibiotics. Polysubstance abuse with withdrawal IVDU Generalized anxiety disorder Continue as needed analgesic, antipyretics and anxiety medication Addiction medicine evaluation appreciated. Continue Suboxone Started on sertraline 25 mg daily for anxiety. Patient has been intermittently refusing but agreeable to take it since 07/13 Severe iron deficiency anemia Monitor H&H Transfuse if hemoglobin falls below 7 Anemia panel consistent with iron deficiency. Continue iron supplementation Vaginal discharge Diflucan x 1 given Hepatitis C Viral load returns quantitative over 800,000. HIV was negative. ID recommends outpatient treatment Update 07/13/2025: Patient medically cleared for SNF discharge pending acceptance. Pending insurance authorization. Likely SNF discharge 07/15 Follow-Up Instructions and Recommendations Primary care provider (PCP) Pcp Unknown Physician Julianna Orozco MD [address] [place] [phone] [facility] [place] [address] [facility] [phone] Discharge Procedure Orders Discharge Diet: Cardiac Heart Healthy Diet (Low Cholesterol / Low Fat / No Added Salt) Order Specific Question Answer Comments Discharge diet you should follow at home Cardiac Heart Healthy Diet (Low Cholesterol / Low Fat / NoAdded Salt) No restrictions, resume your usual activities Primary care provider (PCP) Order Specific Question Answer Comments Follow-Up as Needed Follow-Up as Needed Provider: Order Specific Question Answer Comments Follow-Up as Needed Follow-Up as Needed There are no outpatient Patient Instructions on file for this admission. Physical Exam at time of Discharge Physical Exam General : Pt lying in bed in no acute distress Head : NC/AT Eyes : EOMI Resp : CTA B/L CVS : RRR, no audible murmurs GI : Abd Soft, NT, ND, +BS Neuro : Alert and oriented x 3, follows commands Vitals Visit Vitals BP (!) 152/90 (BP Location: Left arm) Pulse 95 Temp 36.7 ??C (98 ??F) (Temporal) Resp 15 Temp (24hrs), Av.9 ??C (98.4 ??F), Min:36.7 ??C (98 ??F), Max:37.1 ??C (98.7 ??F) Body mass index is 23.28 kg/m??. No results found for: PTWT , PTHT Greater than 30 minutes spent preparing this discharge, evaluating patient, discussing care plan with nursing and ICC. * Prabhjot Neely MD - 07/12/2025 12:28 PM EST Images from the original note were not included. BERRY DISCHARGE SUMMARY Patient Information Kathy Ballard : 1975 [50 y.o.] Admitting Provider Joe Dockery MD Discharge Provider Prabhjot Neely MD, Prabhjot Neely MD Primary Care Physician Pcp Unknown Physician Admission Date 07/02/2025 Discharge Date 07/12/2025 Summary of Hospital Problems Primary Discharge Diagnosis: Septic arthritis of lumbar spine ([facility] V24) Discharge Destination: SNF Code Status at Discharge: Full Code - Default Hospital Course Summary LOS: 10 days 49-year-old female with a history of IV drug use, OUD maintained on methadone, acute worsening of chronic back pain, anemia of chronic disease and thyroid disease presents with low back pain in the setting of MRSA bacteremia. Patient was treated with IV vancomycin. Blood cultures from 07/05 demonstrated clearance. Last positive blood cultures were from 07/03 growing MRSA. TTE performed did not show any evidence of endocarditis. Infectious disease recommend IV vancomycin treatment till 08/30. PICC line access placed. Patient medically stable for SNF discharge for completion of IV antibiotic therapy pending acceptance. MRSA bacteremia Numerous skin ulcerations In the setting of known IV drug use and numerous skin ulcerations and open sores. Blood cultures from 07/03 growing MRSA Repeat blood cultures from 07/05 negative Continue IV vancomycin Infectious disease on board. Appreciate recommendations. Will need IV vancomycin till 08/30/2025 Septic arthritis of the L4/5 with surrounding cellulitis Appreciate neurosurgery input. No surgical intervention required at this time since pathogen is known and neuroexam is intact. They recommend office follow-up in 6 weeks. A small left central L5-S1 disc herniation was also noted. Treat underlying cause with IV antibiotics. Added gabapentin for radiculopathy- patient is refusing this. Polysubstance abuse with withdrawal IVDU Generalized anxiety disorder Continue as needed analgesic, antipyretics and anxiety medication Addiction medicine evaluation appreciated. Continue Suboxone Started on sertraline 25 mg daily for anxiety Severe iron deficiency anemia Monitor H&H Transfuse if hemoglobin falls below 7 Anemia panel consistent with iron deficiency. Continue iron supplementation Vaginal discharge Diflucan x 1 given Hepatitis C Viral load returns quantitative over 800,000. HIV was negative. ID recommends outpatient treatment Follow-Up Instructions and Recommendations Primary care provider (PCP) Pcp Unknown Physician Julianna Orozco MD [address] [place] [address] [address] [id number] Discharge Procedure Orders Discharge Diet: Cardiac Heart Healthy Diet (Low Cholesterol / Low Fat / No Added Salt) Order Specific Question Answer Comments Discharge diet you should follow at home Cardiac Heart Healthy Diet (Low Cholesterol / Low Fat / NoAdded Salt) No restrictions, resume your usual activities Primary care provider (PCP) Order Specific Question Answer Comments Follow-Up as Needed Follow-Up as Needed Provider: Order Specific Question Answer Comments Follow-Up as Needed Follow-Up as Needed There are no outpatient Patient Instructions on file for this admission. Physical Exam at time of Discharge Physical Exam General : Pt lying in bed in no acute distress Head : NC/AT Eyes : EOMI Resp : CTA B/L CVS : RRR, no audible murmurs GI : Abd Soft, NT, ND, +BS Neuro : Alert and oriented x 3, follows commands Vitals Visit Vitals BP (!) 129/90 (BP Location: Left arm, Patient Position: Lying) Pulse 89 Temp 36.5 ??C (97.7 ??F) (Temporal) Resp 20 Temp (24hrs), Av.7 ??C (98 ??F), Min:36.5 ??C (97.7 ??F), Max:36.8 ??C (98.2 ??F) Body mass index is 23.28 kg/m??. No results found for: PTWT , PTHT Greater than 30 minutes spent preparing this discharge, evaluating patient, discussing care plan with nursing and ICC. * Prabhjot Neely MD - 07/11/2025 12:44 PM EST Images from the original note were not included. BERRY DISCHARGE SUMMARY Patient Information Kathy Ballard : 1975 [50 y.o.] Admitting Provider Joe Dockery MD Discharge Provider Prabhjot Neely MD, Prabhjot Neely MD Primary Care Physician Pcp Unknown Physician Admission Date 07/02/2025 Discharge Date 07/11/2025 Summary of Hospital Problems Primary Discharge Diagnosis: Septic arthritis of lumbar spine ([facility] V24) Discharge Destination: SNF Code Status at Discharge: Full Code - Default Hospital Course Summary LOS: 9 days 49-year-old female with a history of IV drug use, OUD maintained on methadone, acute worsening of chronic back pain, anemia of chronic disease and thyroid disease presents with low back pain in the setting of MRSA bacteremia. Patient was treated with IV vancomycin. Blood cultures from 07/05 demonstrated clearance. Last positive blood cultures were from 07/03 growing MRSA. TTE performed did not show any evidence of endocarditis. Infectious disease recommend IV vancomycin treatment till 08/30. PICC line access placed. Patient medically stable for SNF discharge for completion of IV antibiotic therapy pending acceptance. MRSA bacteremia Numerous skin ulcerations In the setting of known IV drug use and numerous skin ulcerations and open sores. Blood cultures from 07/03 growing MRSA Repeat blood cultures from 07/05 negative Continue IV vancomycin Infectious disease on board. Appreciate recommendations. Will need IV vancomycin till 08/30/2025 Septic arthritis of the L4/5 with surrounding cellulitis Appreciate neurosurgery input. No surgical intervention required at this time since pathogen is known and neuroexam is intact. They recommend office follow-up in 6 weeks. A small left central L5-S1 disc herniation was also noted. Treat underlying cause with IV antibiotics. Added gabapentin for radiculopathy- patient is refusing this. Polysubstance abuse with withdrawal IVDU Generalized anxiety disorder Continue as needed analgesic, antipyretics and anxiety medication Addiction medicine evaluation appreciated. Continue Suboxone Started on sertraline 25 mg daily for anxiety Severe iron deficiency anemia Monitor H&H Transfuse if hemoglobin falls below 7 Anemia panel consistent with iron deficiency. Continue iron supplementation Vaginal discharge Diflucan x 1 given Hepatitis C Viral load returns quantitative over 800,000. HIV was negative. ID recommends outpatient treatment Follow-Up Instructions and Recommendations Primary care provider (PCP) Pcp Unknown Physician Julianna Orozco MD [address] [facility] [address] [address] Discharge Procedure Orders Discharge Diet: Cardiac Heart Healthy Diet (Low Cholesterol / Low Fat / No Added Salt) Order Specific Question Answer Comments Discharge diet you should follow at home Cardiac Heart Healthy Diet (Low Cholesterol / Low Fat / NoAdded Salt) No restrictions, resume your usual activities Primary care provider (PCP) Order Specific Question Answer Comments Follow-Up as Needed Follow-Up as Needed Provider: Order Specific Question Answer Comments Follow-Up as Needed Follow-Up as Needed There are no outpatient Patient Instructions on file for this admission. Physical Exam at time of Discharge Physical Exam General : Pt lying in bed in no acute distress Head : NC/AT Eyes : EOMI Resp : CTA B/L CVS : RRR, no audible murmurs GI : Abd Soft, NT, ND, +BS Neuro : Alert and oriented x 3, follows commands Vitals Visit Vitals BP (!) 122/91 (BP Location: Left arm) Pulse 77 Temp 36.9 ??C (98.4 ??F) (Temporal) Resp 15 Temp (24hrs), Av.8 ??C (98.2 ??F), Min:36.7 ??C (98.1 ??F), Max:36.9 ??C (98.4 ??F) Body mass index is 23.28 kg/m??. No results found for: PTWT , PTHT Greater than 30 minutes spent preparing this discharge, evaluating patient, discussing care plan with nursing and ICC. documented in this encounter Medications at Time of Discharge acetaminophen (TYLENOL) 325 mg tablet Take 2 tablets (650 mg total) by mouth every 4 (four) hours if needed for mild pain, headaches or fever - temperature GREATER than 38 C (100.4 F) for up to 10 days. 07/11/2025 5 aluminum-magnesi um hydroxide-simeth icone (MAALOX) 200-200-20 mg/5 mL suspension Take 10 mL by mouth 4 (four) times a day (before meals and nightly) for 5 days. 07/16/2025 5 ascorbic acid (VITAMIN C) 250 mg tablet Take 1 tablet (250 mg total) by mouth 1 (one) time each day. 07/12/2025 5 buprenorphine-na loxone (SUBOXONE) 2-0.5 mg per SL tablet Place 1 tablet under the tongue 2 (two) times a day. After the medication is completely dissolved, take a large sip of water, swish it around teeth and gums, and swallow. Wait at least 1 hour before brushing teeth to avoid damage to your teeth. Max Daily Amount: 2 tablets 07/11/2025 6 cariprazine (VRAYLAR) 1.5 mg capsule Take 1 capsule (1.5 mg total) by mouth 1 (one) time each day for 14 days. 07/17/2025 5 ferrous sulfate 325 mg (65 mg elemental iron) tablet Take 1 tablet (325 mg total) by mouth 2 (two) times a day. 07/11/2025 6 gabapentin (NEURONTIN) 100 mg capsule Take 1 capsule (100 mg total) by mouth every 8 (eight) hours. 07/11/2025 6 methadone (DOLOPHINE) 10 mg tabletIndication s:Septic arthritis of lumbar spine (CMS/HCC V24) Take 5 tablets (50 mg total) by mouth 1 (one) time each day. Max Daily Amount: 50 mg 07/17/2025 oxyCODONE (ROXICODONE) 5 mg immediate release tabletIndication s:Septic arthritis of lumbar spine (CMS/HCC V24) Take 1 tablet (5 mg total) by mouth 3 (three) times a day if needed for moderate pain or severe pain for up to 2 days. Max Daily Amount: 15 mg 6 tablet 07/16/2025 5 sertraline (ZOLOFT) 25 mg tablet Take 1 tablet (25 mg total) by mouth 1 (one) time each day. 07/12/2025 6 traZODone (DESYREL) 50 mg tablet Take 0.5 tablets (25 mg total) by mouth at bedtime as needed for sleep. 07/12/2025 5 vancomycin 750 mg in sodium chloride 0.9 % 250 mL IVPB Infuse 750 mg into a venous catheter every 12 (twelve) hours for 101 doses. 07/11/2025 5 documented as of this encounter Ordered Prescriptions Prescription Sig Dispense Quantity Refills Last Filled Start Date End Date oxyCODONE (ROXICODONE) 5 mg immediate release tabletIndications: Septic arthritis of lumbar spine ([facility] V24) Take 1 tablet (5 mg total) by mouth 3 (three) times a day if needed for moderate pain or severe pain for up to 2 days. Max Daily Amount: 15 mg 6 tablet 07/16/2025 5 methadone (DOLOPHINE) 10 mg tabletIndications: Septic arthritis of lumbar spine ([facility] V24) Take 5 tablets (50 mg total) by mouth 1 (one) time each day. Max Daily Amount: 50 mg 07/17/2025 cariprazine (VRAYLAR) 1.5 mg capsule Take 1 capsule (1.5 mg total) by mouth 1 (one) time each day for 14 days. 07/17/2025 5 aluminum-magnesium hydroxide-simethic one (MAALOX) 200-200-20 mg/5 mL suspension Take 10 mL by mouth 4 (four) times a day (before meals and nightly) for 5 days. 07/16/2025 5 traZODone (DESYREL) 50 mg tablet Take 0.5 tablets (25 mg total) by mouth at bedtime as needed for sleep. 07/12/2025 5 vancomycin 750 mg in sodium chloride 0.9 % 250 mL IVPB Infuse 750 mg into a venous catheter every 12 (twelve) hours for 101 doses. 07/11/2025 5 sertraline (ZOLOFT) 25 mg tablet Take 1 tablet (25 mg total) by mouth 1 (one) time each day. 07/12/2025 6 gabapentin (NEURONTIN) 100 mg capsule Take 1 capsule (100 mg total) by mouth every 8 (eight) hours. 07/11/2025 6 ferrous sulfate 325 mg (65 mg elemental iron) tablet Take 1 tablet (325 mg total) by mouth 2 (two) times a day. 07/11/2025 6 buprenorphine-nalo xone (SUBOXONE) 2-0.5 mg per SL tablet Place 1 tablet under the tongue 2 (two) times a day. After the medication is completely dissolved, take a large sip of water, swish it around teeth and gums, and swallow. Wait at least 1 hour before brushing teeth to avoid damage to your teeth. Max Daily Amount: 2 tablets 07/11/2025 6 ascorbic acid (VITAMIN C) 250 mg tablet Take 1 tablet (250 mg total) by mouth 1 (one) time each day. 07/12/2025 5 acetaminophen (TYLENOL) 325 mg tablet Take 2 tablets (650 mg total) by mouth every 4 (four) hours if needed for mild pain, headaches or fever - temperature GREATER than 38 C (100.4 F) for up to 10 days. 07/11/2025 5 zolpidem (AMBIEN) 10 mg tablet Take 1 tablet (10 mg total) by mouth at bedtime as needed for sleep. Max Daily Amount: 10 mg 07/11/2025 5 documented in this encounter Discharge Disposition Disposition Code Departure Means Destination Comment s Left Against Medical Advice Car Home documented in this encounter Progress Notes * Geni Elaine RN - 07/16/2025 10:46 PM EST NURSING BDC MANAGER NOTE: THIS NURSING BDC MANAGER WAS NOTIFIED BY SECURITY AND NURSING STAFF THAT PATIENT HAD ELOPED THE BUILDING AND WAS DOWN IN THE MAIN LOBBY TRYING TO GET BACK IN. THIS NURSING BDC MANAGER ALONG WITH RAQUEL PA PROVIDER JOE SHINE MET WITH THE PATIENT. IT WAS EXPLAINED TO HER THAT DUE TO HER ELOPING AND LEAVING THE BUILDING, PER POLICY, THAT IS CONSIDERED LEAVING AGAINST MEDICAL ADVICE SO SHE CAN EITHER LEAVE OR IF SHE WISHES SHE CAN CHECK BACK IN TO THE ED TO START THE ADMITTING PROCESS ALL OVER AGAIN. PATIENT ADAMANT ABOUT LEAVING AMA DESPITE ENCOURAGEMENT AND EDUCATION FROM THIS BDC MANAGER AND RAQUEL PA TO CHECK BACK IN TO THE ED TO CONTINUE TREATMENT. PICC LINE REMOVED BY THIS NURSING BDC MANAGER (MEASURED 38 CM CONSISTENT WITH PICC LINE PROCEDURE DOCUMENTATION LENGTH), AMA FORM SIGNED BY PATIENT AND THIS NURSING BDC MANAGER, AND PATIENT LEFT THE BUILDING WITH HER RIDE. OF NOTE, WHEN THIS NURSING BDC MANAGER AND PATIENT BURR BENCH HAND BRICENO GEGE WERE PACKING UP PATIENT'S NUMEROUS BELONGINGS IN HER ROOM, A HANDFUL OF INSULIN NEEDLES WERE FOUND IN HER ROOM THAT WERE HIDDEN IN ONE OF HE SOCKS IN THE BATHROOM. NEEDLES WERE GIVEN TO SECURITY WHO DISPOSED OF THEM. * Berenice Zaldivar RN - 07/16/2025 9:45 PM EST Notified by security that pt was found outside walking around. Held down at security on [id number]. Geni elaine notified of pt's elopement. Instructed to keep pt at security.2199 vitaliy dockery notified of pt's elopement. Pt instructed that she has to go back through er and be readmitted. Paraphernalia found by stevedoring supervisor geni in room while packing up belongings. [id number] per stevedoring supervisor geni elaine pt is adamant about leaving. Will not wait for readmit through er. Pt to be discharged * Lucita Caldwell [facility] - 07/16/2025 1:27 PM EST I was able to speak with patient's clinician, Olga from her home clinic, [facility]. I informed her that patient will be going to SNF care and needs to guest dose at [facility]. Olga stated she spoke with patient today and patient told her she does not want to go to the nursing facility. I informed Olga, she told my team that same thing however, she is saying she is going to go because of the need for her medical care. Olga said she will send the form over to [email or web address] when she gets the releases. I faxed releases of information over to Olga. I faxed releases of information and documentation from patient's chart to [email or web address]. Confirmation sheets received and saved. COLT Danielson, [facility] Behavioral Health Clinical Data Warehouse Analyst [facility] * Sly Robbins MD - 07/16/2025 12:09 PM EST Patient is a 49 years old female with past medical history significant for IV drug use, opioid use disorder, chronic back pain, presented to the hospital with complaints of low back pain. Patient wasnoted with MRSA bacteremia and treated with IV vancomycin. Repeat blood cultures demonstrated clearance and infectious disease specialist recommended IV vancomycin to 08/30/2025. PICC line access placed and patient is stable to be transferred to rehab for completion of IV antibiotic therapy. # Septic arthritis L4/5 with surrounding cellulitis # MRSA bacteremia - Reviewed MRI lumbar spine obtained on 07/01/2025, findings suggestive of septic arthritis involving left L4-L5 facet joint with surrounding cellulitis. Also noted multilevel degenerative disc and facet disease as well as ligamentum flavum hypertrophy. Mild multilevel canal stenosis, multilevel mild to moderate foraminal stenosis. Neurosurgery was consulted and no surgical intervention recommended. Suggested outpatient follow-up in 6 weeks. And recommended to continue IV antibiotics. - Reviewed blood cultures, noted MRSA and repeat blood cultures have been negative. Infectious disease consulted and recommended IV vancomycin till August 30, 2025. # Polysubstance abuse, IV drug use - Addiction medicine consulted and patient interested in restarting methadone. - Discontinue buprenorphine and restart methadone per addiction medicine team. Methadone 50 mg p.o.daily # Major depressive disorder # Anxiety - Psychiatry consultation completed on 07/15/25. Recommended to increase the dose of Zoloft but patient declined, so we will continue Zoloft 25 mg p.o. daily. - Initiate Vraylar 1.5 mg p.o. daily for psychotic symptoms, depression regimen augmentation. - Patient does not meet criteria for section 12 or involuntary psychiatric admission per psychiatrist. - Patient also requested for Ambien while in the hospital. One-time Ambien ordered on 07/15/2025. Upon discharge no need for further Ambien for sleep given initiation of methadone. # Hepatitis C - Viral load greater than 800,000, HIV negative. ID recommending outpatient management. # Disposition - SNF given the need for IV antibiotics - Patient is medically stable to be transferred to SNF. field worker notified. * TIMBO Maradiaga - 07/16/2025 11:49 AM EST Patient signed releases of information for home clinic, intermediate facility, and [facility]. Message left at home clinic to ask them to initiate guest dosing for patient. Awaiting a call back and will continue to update via notes. Patient was adamant that she does not want to go far away and would like her treatment team to try and find her a place closer to home. She was advised that the team does a search of the facilities that have openings. She was encouraged to direct her placement questions to her social worker masters. COLT Danielson, [facility] Behavioral Health Clinical Data Warehouse Analyst [facility] * Gris Butcher RN - 07/16/2025 11:15 AM EST Correction to note below. Liability begins 07/17 at noon. * ERIKA Rahman - 07/16/2025 11:03 AM EST Western Philosophy Professor- CM Progress Note This typewriter assembly and parts inspector and CM conference planning manager met with patient, discussed with her that insurance appeal company was not able to speak with her. Notified her that her appeal for discharge that was denied. Kathy aware and in agreement to continue discharge as planned. This typewriter assembly and parts inspector reached out to addiction medicine service to inquire of guest dosing status. Case management web content & social media manager will remain available to assess, support, provide advocacy and assist with discharge planning as appropriate. * Gris Butcher RN - 07/16/2025 10:53 AM EST Notified by O[facility] that patient did not win her appeal and that [facility] agrees with hospital D/C. Patient is responsible at noon today for hospital stay. SW notified. * Micheline Shah DO - 07/16/2025 10:42 AM EST Images from the original note were not included. Kathy Ballard 1975 [id number] Author: Micheline Shah DO DOS: 07/16/2025 Requesting Service: Hospitalist Service Chief Complaint: Septic arthritis of lumbar spine (CMS/[facility] V24) Reason for Consultation: Opioid use disorder Source of History: Patient and chart Subjective History of Present Illness: Kathy Ballard is a 50 y.o. female with a history of opioid use disorder admitted for septic arthritis of lumbar spine. Patient had successfully tolerated low dose buprenorphine transition to 2mg SL BID after deciding she did not want to continue on methadone. She reports feeling better on methadone. Declines an increase in her dose at this time. Allergies: Allergies[1] Home Medications: Prior to Admission medications Medication Sig Start Date End Date Taking? Authorizing Provider acetaminophen (TYLENOL) 325 mg tablet Take 2 tablets (650 mg total) by mouth every 4 (four) hours if needed for mild pain, headaches or fever - temperature GREATER than 38 C (100.4 F) for up to 10 days. 07/11/25 07/21/25 Yes Prabhjot Neely MD ascorbic acid (VITAMIN C) 250 mg tablet Take 1 tablet (250 mg total) by mouth 1 (one) time each day. 07/12/25 08/11/25 Yes Prabhjot Neely MD buprenorphine-naloxone (SUBOXONE) 2-0.5 mg [address] SL tablet [address] 1 tablet under the tongue 2 (two) times a day. After the medication is completely dissolved, take a large sip of water, swish it around teeth and gums, and swallow. Wait at least 1 hour before brushing teeth to avoid damage to your teeth. Max Daily Amount: 2 tablets 07/11/25 01/07/26 Yes Prabhjot Neely MD ferrous sulfate 325 mg (65 mg elemental iron) tablet Take 1 tablet (325 mg total) by mouth 2 (two) times a day. 07/11/25 07/11/26 Yes Prabhjot Neely MD gabapentin (NEURONTIN) 100 mg capsule Take 1 capsule (100 mg total) by mouth every 8 (eight) hours.07/11/25 07/11/26 Yes Prabhjot Neely MD sertraline (ZOLOFT) 25 mg tablet Take 1 tablet (25 mg total) by mouth 1 (one) time each day. 07/12/25 07/12/26 Yes Prabhjot Neely MD traZODone (DESYREL) 50 mg tablet Take 0.5 tablets (25 mg total) by mouth at bedtime as needed for sleep. 07/12/25 08/11/25 Yes Prabhjot Neely MD vancomycin 750 mg in sodium chloride 0.9 % 250 mL IVPB Infuse 750 mg into a venous catheter every 12 (twelve) hours for 101 doses. 07/11/25 08/31/25 Yes Prabhjot Neely MD zolpidem (AMBIEN) 10 mg tablet Take 1 tablet (10 mg total) by mouth at bedtime as needed for sleep.Max Daily Amount: 10 mg 07/11/25 07/11/25 Yes Prabhjot Neely MD Past Medical History: Medical History[2] Past Surgical History: Surgical History[3] Family History: Family History[4] Social History: Tobacco Use History[5] Social History Substance and Sexual Activity Alcohol Use None Social History Substance and Sexual Activity Drug Use Not on file Objective ROS: as above Last Recorded Vitals: Blood pressure 110/74, pulse 90, temperature 36.5 ??C (97.7 ??F), resp. rate 14, height 1.524 m (60 ), weight 54.1 kg (119 lb 3.2 oz), SpO2 100%. Physical Exam Gen: NAD, resting comfortably in bed HEENT: pupils normal, OP clear Skin: No rashes or lesions Neuro: Sleepy but arousable, No tremor Pysch: Mood and affect normal Labs: Lab Results Component Value Date GLUCOSE 84 07/08/2025 CALCIUM 8.9 07/08/2025 NA 140 07/08/2025 K 3.8 07/08/2025 CO2 27 07/08/2025 CL 108 07/08/2025 BUN 22 07/08/2025 CREATININE 0.74 07/13/2025 Lab Results Component Value Date WBC 5.1 07/08/2025 HGB 7.6 (L) 07/08/2025 HCT 26.7 (L) 07/08/2025 MCV 72.8 (L) 07/08/2025 PLT 314 07/08/2025 Imaging: Vascular US duplex upper extremity venous left Narrative: INDICATION: Superficial Thrombophlebitis of the Arm Venous duplex ultrasound left upper extremity Comparison: None provided Findings: Accessible deep venous segments are fully compressible with normal Doppler color flow and spectral tracings. Intraluminal echoes and noncompressibility in mid aspect of the cephalic vein, consistent with superficial thrombophlebitis. Impression: 1. Negative for left upper extremity deep vein thrombosis. 2. Superficial thrombophlebitis of cephalic vein at mid segment. This document has been electronically signed by: Arina Burt MD on 07/07/2025 18:19:19 Meds: MEDSSCHEDULED[6] MEDSCONTINUOUS[7] MEDSPRN[8] Assessment and Plan Kathy Ballard is a 50 y.o. female with a history of opioid use disorder admitted for septic arthritis of lumbar spine. Opioid Use Disorder Previously on methadone through [facility] but self discontinued dosing 06/10. Patient last [id number] mg methadone on 07/04 did not want to continue methadone because did not want to go to clinic every day and because did not think it was working. Successfully transitioned to buprenorphine via very low dose induction and tolerated 4 mg SL bup/nal. Patent then opted to discontinue buprenorphine and restart methadone on 07/15. Recommend increase methadone to 50 mg PO daily Avoid/minimize BENCH INSPECTOR depressants and sedating medications that may increase risk of respiratory depression or overdose Patient would benefit from harm reduction counseling and supplies including fentanyl test strips and Narcan Team will continue to follow and engage with patient. Cocaine use Patient may benefit from harm reduction supplies including fentanyl test strips and Narcan prior todischarge Thank you for the interesting consultation. Please reach out with any questions or concerns. Principal Problem: Septic arthritis of lumbar spine ([facility] V24) Provider Attestation Electronically signed by Micheline Shah DO [1] Allergies Allergen Reactions Hydroxyzine Angioedema Benadryl Allergy Decongestant Risperidone [2] Past Medical History: Diagnosis Date Anemia Disease of thyroid gland [3] No past surgical history on file. [4] No family history on file. [5] Social History Tobacco Use Smoking Status Never Smokeless Tobacco Never [6] ascorbic acid, 250 mg, oral, Daily cariprazine, 1.5 mg, oral, Daily cloNIDine, 0.1 mg, oral, q8h YESENIA docusate sodium, 100 mg, oral, BID enoxaparin, 40 mg, subcutaneous, q24h YESENIA ferrous sulfate, 325 mg, oral, BID gabapentin, 100 mg, oral, q8h YESENIA methadone, 10 mg, oral, Once [START ON 07/17/2025] methadone, 40 mg, oral, Daily And [START ON 07/17/2025] methadone, 10 mg, oral, Daily pantoprazole, 40 mg, oral, BID AC sertraline, 25 mg, oral, Daily sodium chloride, 10 mL, intravenous, BID vancomycin, 1,000 mg, intravenous, q12h [7] [8] PRN medications: acetaminophen, aluminum-magnesium hydroxide-simethicone, calcium carbonate, clonazePAM, ondansetron (ZOFRAN-ODT) disintegrating tablet OR ondansetron, oxyCODONE OR oxyCODONE, prochlorperazine OR prochlorperazine OR prochlorperazine, Insert peripheral IV AND Maintain IV access AND Saline lock IV AND sodium chloride AND sodium chloride, sodium chloride, traZODone * Geni Greenwood MD - 07/16/2025 9:38 AM EST The [facility] attempted to see the patient this morning for psychiatric consult f/u, but she reported that she had just woken up and didn't want to talk today. Psychiatry will continue to follow. * Gris Butcher RN - 07/15/2025 4:00 PM EST Patient appealing her discharge. EMR uploaded to [facility] portal. Case number is [id number] JV. * Yeimi Santos - 07/15/2025 2:53 PM EST SPIRITUAL CARE Date/Time:07/15/25 at 2:53 PM EST Type of Visit:Follow-up and Coffee Weigher Rounding Reason for Visit: Spiritual/Emotional Support Time Spent: 15 Minutes Location: [address] [place] [address] Sacramental Encounters: Spiritual Distress Assessment: Spiritual Distress Assessment at beginning of visit Meaning - Overall Life Balance: Some evidence of unmet spiritual need Transcendence: No evidence of unmet spiritual need Values - Acknowledgement: No evidence of unmet spiritual need Values - Control: No evidence of unmet spiritual need Psycho-Social Identity: No evidence of unmet spiritual need SDAT Beginning of Visit Average Score: 0.2 Spiritual Distress Assessment at end of visit Meaning - Overall Life Balance: Some evidence of unmet spiritual need Transcendence: No evidence of unmet spiritual need Values - Acknowledgement: No evidence of unmet spiritual need Values - Control: No evidence of unmet spiritual need Psycho-Social Identity: No evidence of unmet spiritual need SDAT End of Visit Average Score: 0.2 Spiritual Assessment/Distress Spiritual Care Assessment: Assessment: Follow up visit, Kathy, was awake, alert. Voiced feeling frustrated, anxious. Listenas she shared reason why she feeling frustrated. We engaged in discussing post discharge plan and the best option post discharge. Hope to keep engaging caregivers regarding discharge and going to rehab place. Voiced appreciation for the support. Intervention: NE Spiritual Care Interventions : focus on the present, encouraged self-care, provided support, andlistened empathically Outcomes: distress reduced, expressed gratitude, progressed toward acceptance, and verbally processed emotions Plan of Care: Visit as needed *Reference: Spiritual Distress Assessment Tool: The SDAT is a clinical tool used by chaplains to identify unmet spiritual and emotional needs that can impact Goals of Care in the following categories: Spiritual Distress Assessment Legend Spiritual Needs Related Questions Meaning Are you having difficulties coping with what is happening to your now? Does your hospitalization have any repercussions on the way you live usually? Transcendence Do you have a particular religious, mirela, or spirituality? Is your religious/spirituality/mirela challenged by what is happening to you now? Values Do you think that the health professionals caring for you know you well enough? Do you feel that you are participating in the decisions made about your care? Psycho-Social Identity Do you have any worries or difficulties regarding your family or other persons close to you? Do you feel lonely? Do you have links to your mirela community? SCALE 0= no evidence of unmet spiritual needs 1= some evidence of unmet spiritual needs 2= substantial evidence of unmet spiritual needs 3= evidence of severe unmet spiritual needs * Sly Robbins MD - 07/15/2025 2:43 PM EST Images from the original note were not included. RAQUEL PROGRESS NOTE Date: 07/15/2025 Author: Sly Robbins MD Patient ID: Kathy Ballard is a 50 y.o. female : 1975 MR#: [id number] SUBJECTIVE Subjective Patient seen by the bedside this morning. No acute events overnight. Patient reported feeling anxious and depressed and wanted to talk to psychiatrist. Discussed management plan and answered all the questions. Allergies Hydroxyzine, Benadryl allergy decongestant, and Risperidone Current Medications: MEDSSCHEDULED[1] MEDSCONTINUOUS[2] MEDSPRN[3] OBJECTIVE Vitals: 07/14/25 1558 07/14/25 2013 07/15/25 0359 07/15/25 0749 BP: (!) 139/99 (!) 128/98 (!) 143/99 111/78 BP Location: Left arm Left arm Left arm Patient Position: Lying Sitting Pulse: 93 95 92 69 Resp: 15 20 16 Temp: 36.8 ??C (98.2 ??F) 36.3 ??C (97.4 ??F) 36.3 ??C (97.3 ??F) 36.9 ??C (98.4 ??F) TempSrc: Temporal Temporal Temporal SpO2: 100% 100% 98% 100% Weight: Height: Physical Exam Constitutional: General: She is not in acute distress. Appearance: Normal appearance. She is not ill-appearing. HENT: Head: Normocephalic and atraumatic. Eyes: Conjunctiva/sclera: Conjunctivae normal. Cardiovascular: Rate and Rhythm: Normal rate and regular rhythm. Pulses: Normal pulses. Heart sounds: Normal heart sounds. Pulmonary: Effort: Pulmonary effort is normal. No respiratory distress. Breath sounds: Normal breath sounds. No wheezing. Abdominal: General: Bowel sounds are normal. There is no distension. Palpations: Abdomen is soft. Tenderness: There is no abdominal tenderness. There is no guarding. Skin: General: Skin is warm. Neurological: Mental Status: She is alert. LABS HEMATOLOGY Lab Results Component Value Date WBC 5.1 07/08/2025 HGB 7.6 (L) 07/08/2025 HCT 26.7 (L) 07/08/2025 MCV 72.8 (L) 07/08/2025 PLT 314 07/08/2025 CHEMISTRY Lab Results Component Value Date GLUCOSE 84 07/08/2025 NA 140 07/08/2025 K 3.8 07/08/2025 CO2 27 07/08/2025 CL 108 07/08/2025 BUN 22 07/08/2025 CREATININE 0.74 07/13/2025 EGFR 100 07/13/2025 CALCIUM 8.9 07/08/2025 MG 2.2 07/08/2025 ANIONGAP 5 07/08/2025 Imaging: Vascular US duplex upper extremity venous left Narrative: INDICATION: Superficial Thrombophlebitis of the Arm Venous duplex ultrasound left upper extremity Comparison: None provided Findings: Accessible deep venous segments are fully compressible with normal Doppler color flow and spectral tracings. Intraluminal echoes and noncompressibility in mid aspect of the cephalic vein, consistent with superficial thrombophlebitis. Impression: 1. Negative for left upper extremity deep vein thrombosis. 2. Superficial thrombophlebitis of cephalic vein at mid segment. This document has been electronically signed by: Arina Burt MD on 07/07/2025 18:19:19 ASSESSMENT & PLAN Hospital course Patient is a 49 years old female with past medical history significant for IV drug use, opioid use disorder, chronic back pain, presented to the hospital with complaints of low back pain. Patient wasnoted with MRSA bacteremia and treated with IV vancomycin. Repeat blood cultures demonstrated clearance and infectious disease specialist recommended IV vancomycin to 08/30/2025. PICC line access placed and patient is stable to be transferred to rehab for completion of IV antibiotic therapy. # Septic arthritis L4/5 with surrounding cellulitis # MRSA bacteremia - Reviewed MRI lumbar spine obtained on 07/01/2025, findings suggestive of septic arthritis involving left L4-L5 facet joint with surrounding cellulitis. Also noted multilevel degenerative disc and facet disease as well as ligamentum flavum hypertrophy. Mild multilevel canal stenosis, multilevel mild to moderate foraminal stenosis. Neurosurgery was consulted and no surgical intervention recommended. Suggested outpatient follow-up in 6 weeks. And recommended to continue IV antibiotics. - Reviewed blood cultures, noted MRSA and repeat blood cultures have been negative. Infectious disease consulted and recommended IV vancomycin till August 30, 2025. # Polysubstance abuse, IV drug use - Addiction medicine consulted and patient interested in restarting methadone. - Discontinue buprenorphine and restart methadone 40 mg p.o. daily per addiction medicine team. # Major depressive disorder # Anxiety - Psychiatry consultation requested today. Recommended to increase the dose of Zoloft but patient declined, so we will continue Zoloft 25 mg p.o. daily. - Initiate Vraylar 1.5 mg p.o. daily for psychotic symptoms, depression regimen augmentation. - Patient does not meet criteria for section 12 or involuntary psychiatric admission per psychiatrist. # Hepatitis C - Viral load greater than 800,000, HIV negative. ID recommending outpatient management. # Disposition - SNF given the need for IV antibiotics - Patient is medically stable to be transferred to SNF. field worker notified. [1] ascorbic acid, 250 mg, oral, Daily cariprazine, 1.5 mg, oral, Daily cloNIDine, 0.1 mg, oral, q8h YESENIA docusate sodium, 100 mg, oral, BID enoxaparin, 40 mg, subcutaneous, q24h YESENIA ferrous sulfate, 325 mg, oral, BID gabapentin, 100 mg, oral, q8h YESENIA ibuprofen, 400 mg, oral, Once methadone, 40 mg, oral, Daily pantoprazole, 40 mg, oral, BID AC sertraline, 25 mg, oral, Daily sodium chloride, 10 mL, intravenous, BID vancomycin, 1,000 mg, intravenous, q12h [2] [3] PRN medications: acetaminophen, aluminum-magnesium hydroxide-simethicone, calcium carbonate, clonazePAM, ondansetron (ZOFRAN-ODT) disintegrating tablet OR ondansetron, oxyCODONE, prochlorperazine OR prochlorperazine OR prochlorperazine, Insert peripheral IV AND Maintain IV access AND Saline lock IV AND sodium chloride AND sodium chloride, sodium chloride, traZODone * ERIKA Rahman - 07/15/2025 1:33 PM EST Western Philosophy Professor- CM Progress Note Patient continues to require acute level hospital care. JORGITO: 07/17/25 Barriers: methadone guest dosing [facility] liaison. Patient started on methadone today. ICC accompanied this typewriter assembly and parts inspector and discussed with patient. Guest dosing initiation requested of addiction medicine service. Case management web content & social media manager will remain available to assess, support, provide advocacy and assist with discharge planning as appropriate. * Tash Ross - 07/15/2025 12:31 PM EST IMM given to patient to sign at bedside 12:24pm, copy given, copy fax over MR and sign copy added to pt chart. * Micheline Shah DO - 07/15/2025 9:47 AM EST Images from the original note were not included. Kathy Ballard 1975 [id number] Author: Micheline Shah DO DOS: 07/15/2025 Requesting Service: Hospitalist Service Chief Complaint: Septic arthritis of lumbar spine (CMS/[facility] V24) Reason for Consultation: Opioid use disorder Source of History: Patient and chart Subjective History of Present Illness: Kathy Ballard is a 50 y.o. female with a history of opioid use disorder admitted for septic arthritis of lumbar spine. Patient had successfully tolerated low dose buprenorphine transition to 2mg SL BID after deciding she did not want to continue on methadone. Morning she reports she wants to see crisis because she feels she needs to be in a locked facility for fear of return to use. She denies thoughts of harm to self or others. She complains of cravings but declines an increase in her buprenorphine dose. She states she would like to discontinue buprenorphine and restart methadone. Allergies: Allergies[1] Home Medications: Prior to Admission medications Medication Sig Start Date End Date Taking? Authorizing Provider acetaminophen (TYLENOL) 325 mg tablet Take 2 tablets (650 mg total) by mouth every 4 (four) hours if needed for mild pain, headaches or fever - temperature GREATER than 38 C (100.4 F) for up to 10 days. 07/11/25 07/21/25 Yes Prabhjot Neely MD ascorbic acid (VITAMIN C) 250 mg tablet Take 1 tablet (250 mg total) by mouth 1 (one) time each day. 07/12/25 08/11/25 Yes Prabhjot Neely MD buprenorphine-naloxone (SUBOXONE) 2-0.5 mg per SL tablet Place 1 tablet under the tongue 2 (two) times a day. After the medication is completely dissolved, take a large sip of water, swish it around teeth and gums, and swallow. Wait at least 1 hour before brushing teeth to avoid damage to your teeth. Max Daily Amount: 2 tablets 07/11/25 01/07/26 Yes Prabhjot Neely MD ferrous sulfate 325 mg (65 mg elemental iron) tablet Take 1 tablet (325 mg total) by mouth 2 (two) times a day. 07/11/25 07/11/26 Yes Prabhjot Neely MD gabapentin (NEURONTIN) 100 mg capsule Take 1 capsule (100 mg total) by mouth every 8 (eight) hours.07/11/25 07/11/26 Yes Prabhjot Neely MD sertraline (ZOLOFT) 25 mg tablet Take 1 tablet (25 mg total) by mouth 1 (one) time each day. 07/12/25 07/12/26 Yes Prabhjot Neely MD traZODone (DESYREL) 50 mg tablet Take 0.5 tablets (25 mg total) by mouth at bedtime as needed for sleep. 07/12/25 08/11/25 Yes Prabhjot Neely MD vancomycin 750 mg in sodium chloride 0.9 % 250 mL IVPB Infuse 750 mg into a venous catheter every 12 (twelve) hours for 101 doses. 07/11/25 08/31/25 Yes Prabhjot Neely MD zolpidem (AMBIEN) 10 mg tablet Take 1 tablet (10 mg total) by mouth at bedtime as needed for sleep.Max Daily Amount: 10 mg 07/11/25 07/11/25 Yes Prabhjot Neely MD Past Medical History: Medical History[2] Past Surgical History: Surgical History[3] Family History: Family History[4] Social History: Tobacco Use History[5] Social History Substance and Sexual Activity Alcohol Use None Social History Substance and Sexual Activity Drug Use Not on file Objective ROS: as above Last Recorded Vitals: Blood pressure 111/78, pulse 69, temperature 36.9 ??C (98.4 ??F), resp. rate 16, height 1.524 m (60 ), weight 54.1 kg (119 lb 3.2 oz), SpO2 100%. Physical Exam Gen: NAD HEENT: pupils normal, OP clear Skin: No rashes or lesions Neuro: Alert and oriented, No tremor Pysch: Mood and affect normal Labs: Lab Results Component Value Date GLUCOSE 84 07/08/2025 CALCIUM 8.9 07/08/2025 NA 140 07/08/2025 K 3.8 07/08/2025 CO2 27 07/08/2025 CL 108 07/08/2025 BUN 22 07/08/2025 CREATININE 0.74 07/13/2025 Lab Results Component Value Date WBC 5.1 07/08/2025 HGB 7.6 (L) 07/08/2025 HCT 26.7 (L) 07/08/2025 MCV 72.8 (L) 07/08/2025 PLT 314 07/08/2025 Imaging: Vascular US duplex upper extremity venous left Narrative: INDICATION: Superficial Thrombophlebitis of the Arm Venous duplex ultrasound left upper extremity Comparison: None provided Findings: Accessible deep venous segments are fully compressible with normal Doppler color flow and spectral tracings. Intraluminal echoes and noncompressibility in mid aspect of the cephalic vein, consistent with superficial thrombophlebitis. Impression: 1. Negative for left upper extremity deep vein thrombosis. 2. Superficial thrombophlebitis of cephalic vein at mid segment. This document has been electronically signed by: Arina Burt MD on 07/07/2025 18:19:19 Meds: MEDSSCHEDULED[6] MEDSCONTINUOUS[7] MEDSPRN[8] Assessment and Plan Kathy Ballard is a 50 y.o. female with a history of opioid use disorder admitted for septic arthritis of lumbar spine. Opioid Use Disorder Previously on methadone through [facility] but self discontinued dosing 06/10. Patient last [id number] mg methadone on 07/04 did not want to continue methadone because did not want to go to clinic every day and because did not think it was working. Successfully transitioned to buprenorphine via very low dose induction and tolerated 4 mg SL bup/nal. Reviewed with patient that she is having cravings due to sub-therapeutic dosing and recommend an increase in dose. Also reviewed that titration of methadone dose would not hold up discharge-she expresses understanding and would like to proceed with change. Discontinue buprenorphine Restart methadone 40 mg PO daily Avoid BENCH INSPECTOR depressant medications that may increase risk of resp depression or overdose Rec re-consult psychiatry per pt request Patient would benefit from harm reduction counseling and supplies including fentanyl test strips and Narcan Team will continue to follow and engage with patient. Cocaine use Patient may benefit from harm reduction supplies including fentanyl test strips and Narcan prior todischarge Thank you for the interesting consultation. Please reach out with any questions or concerns. Principal Problem: Septic arthritis of lumbar spine ([facility] V24) Provider Attestation Electronically signed by Micheline Shah DO [1] Allergies Allergen Reactions Hydroxyzine Angioedema Benadryl Allergy Decongestant Risperidone [2] Past Medical History: Diagnosis Date Anemia Disease of thyroid gland [3] No past surgical history on file. [4] No family history on file. [5] Social History Tobacco Use Smoking Status Never Smokeless Tobacco Never [6] ascorbic acid, 250 mg, oral, Daily buprenorphine-naloxone, 1 tablet, sublingual, BID cloNIDine, 0.1 mg, oral, q8h YESENIA docusate sodium, 100 mg, oral, BID enoxaparin, 40 mg, subcutaneous, q24h YESENIA ferrous sulfate, 325 mg, oral, BID gabapentin, 100 mg, oral, q8h YESENIA sertraline, 25 mg, oral, Daily sodium chloride, 10 mL, intravenous, BID vancomycin, 1,000 mg, intravenous, q12h [7] [8] PRN medications: acetaminophen, calcium carbonate, clonazePAM, ondansetron (ZOFRAN-ODT) disintegrating tablet OR ondansetron, oxyCODONE, prochlorperazine OR prochlorperazine OR prochlorperazine, Insert peripheral IV AND Maintain IV access AND Saline lock IV AND sodium chloride AND sodium chloride, sodium chloride, traZODone * ERIKA Lawrence - 07/14/2025 2:58 PM EST This typewriter assembly and parts inspector verified her understanding with liaison of accepting facility, [facility]; ---IF physician is willing to document less than 30 day order, facility will utilize exemption and prior to30 days, request a 'resident review 'in relation to Level 2 Pasrr. Please refer to Epic/communication history for detail relative to conversation. Ongoing social worker masters to follow. * Selena Silva PharmD - 07/13/2025 11:11 PM EST Vt 14.8 07/13 @ 2228 (dose due 2300) Continue as ordered Review weekly labs on Tuesday Next Vt 07/16 @ 2200 EOT per ID note is 08/30 * ERIKA Lawrence - 07/13/2025 5:06 PM EST This typewriter assembly and parts inspector is attempting to verify if delay in transfer, related to PASRR screen; can be reconsidered. Per social work, patient is unable to be considered for less than 30 day exemption secondary toending date of iv therapy exceeding 30 days. [facility] work cell for ongoing communication relative to subject. To follow in am. * Filipe Iqbal RN - 07/12/2025 6:28 PM EST Goals: Identify possible barriers to meeting goals/advancing plan of care: Stability of the patient: Moderately Stable - Low risk of patient condition declining or worsening End of Shift Summary: Problem: Physical Regulation:Infection Management Goal: Complications related to the disease process, condition or treatment will be avoided or minimized Outcome: Progressing * ERIKA Rahman - 07/12/2025 3:03 PM EST Western Philosophy Professor- CM Progress Note Patient continues to require acute level hospital care. JORGITO: 07/15/25 Barriers: Insurance auth, PASRR [facility] Revisited patient with ICCC[facility]erino Chavez is in agreement with placement at [facility]. She is working on making arrangements for her family in the meantime. Facility submitting for insurance authorization and level 2 PASRR. Less than 30 day statement not applicable in this situation as patient requiring IV ABT through 08/30/25. Case management web content & social media manager will remain available to assess, support, provide advocacy and assist with discharge planning as appropriate. * Adonis Mckeon - 07/12/2025 11:39 AM EST Provisioning Specialist Note I met with the pt in her room. She was sitting on the edge of her bed. We had a chance to talk about her SNF placement, to which she was not happy about because her family would have a hard time visiting her. She stated that she has a special needs child and being far away would or could cause issues to the daughter. She did say that if no other place would take her, she would go but would need assistance going to the [facility] within the hospital to be able to leave money for her family while she isgone. We also spoke ab out her recovery and what her path looks like once she leaves. We talked about harm reduction and how she can keep herself safe. I will continue to support the pt and follow upwhile in our care. Adonis Mckeon Certified Provisioning Specialist [address] [place] [id number] Provisioning Specialist Office [address] [place] [address] - Provisioning Specialist Office - Addiction Office Rm 304 [email or web address] * VITALIY Guaman - 07/12/2025 11:15 AM EST Images from the original note were not included. Kathy Ballard 1975 [id number] Author: VITALIY Guaman DOS: 07/12/2025 Requesting Service: Hospitalist Service Chief Complaint: Septic arthritis of lumbar spine (CMS/[facility] V24) Reason for Consultation: Opioid use disorder Source of History: Patient and chart Subjective History of Present Illness: Kathy Ballard is a 50 y.o. female with a history of opioid use disorder currently on buprenorphine presenting to the hospital for septic arthritis of the lumbar spine Formal consultation performed prior, see note for further details Tolerate transition from methadone to Suboxone without significant difficulty Currently on 2 mg twice daily Would like to hold at this dose Allergies: Allergies[1] Home Medications: Prior to Admission medications Medication Sig Start Date End Date Taking? Authorizing Provider acetaminophen (TYLENOL) 325 mg tablet Take 2 tablets (650 mg total) by mouth every 4 (four) hours if needed for mild pain, headaches or fever - temperature GREATER than 38 C (100.4 F) for up to 10 days. 07/11/25 07/21/25 Yes Prabhjot Neely MD ascorbic acid (VITAMIN C) 250 mg tablet Take 1 tablet (250 mg total) by mouth 1 (one) time each day. 07/12/25 08/11/25 Yes Prabhjot Neely MD buprenorphine-naloxone (SUBOXONE) 2-0.5 mg per SL tablet Place 1 tablet under the tongue 2 (two) times a day. After the medication is completely dissolved, take a large sip of water, swish it around teeth and gums, and swallow. Wait at least 1 hour before brushing teeth to avoid damage to your teeth. Max Daily Amount: 2 tablets 07/11/25 01/07/26 Yes Prabhjot Neely MD ferrous sulfate 325 mg (65 mg elemental iron) tablet Take 1 tablet (325 mg total) by mouth 2 (two) times a day. 07/11/25 07/11/26 Yes Prabhjot Neely MD gabapentin (NEURONTIN) 100 mg capsule Take 1 capsule (100 mg total) by mouth every 8 (eight) hours.07/11/25 07/11/26 Yes Prabhjot Neely MD sertraline (ZOLOFT) 25 mg tablet Take 1 tablet (25 mg total) by mouth 1 (one) time each day. 07/12/25 07/12/26 Yes Prabhjot Neely MD traZODone (DESYREL) 50 mg tablet Take 0.5 tablets (25 mg total) by mouth at bedtime as needed for sleep. 07/12/25 08/11/25 Yes Prabhjot Neely MD vancomycin 750 mg in sodium chloride 0.9 % 250 mL IVPB Infuse 750 mg into a venous catheter every 12 (twelve) hours for 101 doses. 07/11/25 08/31/25 Yes Prabhjot Neely MD zolpidem (AMBIEN) 10 mg tablet Take 1 tablet (10 mg total) by mouth at bedtime as needed for sleep.Max Daily Amount: 10 mg 07/11/25 07/11/25 Yes Prabhjot Neely MD Past Medical History: Medical History[2] Past Surgical History: Surgical History[3] Family History: Family History[4] Social History: Tobacco Use History[5] Social History Substance and Sexual Activity Alcohol Use None Social History Substance and Sexual Activity Drug Use Not on file Objective Last Recorded Vitals: Blood pressure (!) 129/90, pulse 89, temperature 36.5 ??C (97.7 ??F), temperature source Temporal, resp. rate 20, height 1.524 m (60 ), weight 54.1 kg (119 lb 3.2 oz), SpO2 99%. Physical Exam Sitting upright in bed Appears comfortable overall Pupils appropriate Normal cardiac rate No increased work of breathing alert Conversive appropriately Labs: Lab Results Component Value Date GLUCOSE 84 07/08/2025 CALCIUM 8.9 07/08/2025 NA 140 07/08/2025 K 3.8 07/08/2025 CO2 27 07/08/2025 CL 108 07/08/2025 BUN 22 07/08/2025 CREATININE 0.66 07/11/2025 Lab Results Component Value Date WBC 5.1 07/08/2025 HGB 7.6 (L) 07/08/2025 HCT 26.7 (L) 07/08/2025 MCV 72.8 (L) 07/08/2025 PLT 314 07/08/2025 Imaging: Vascular US duplex upper extremity venous left Narrative: INDICATION: Superficial Thrombophlebitis of the Arm Venous duplex ultrasound left upper extremity Comparison: None provided Findings: Accessible deep venous segments are fully compressible with normal Doppler color flow and spectral tracings. Intraluminal echoes and noncompressibility in mid aspect of the cephalic vein, consistent with superficial thrombophlebitis. Impression: 1. Negative for left upper extremity deep vein thrombosis. 2. Superficial thrombophlebitis of cephalic vein at mid segment. This document has been electronically signed by: Arina Burt MD on 07/07/2025 18:19:19 Meds: MEDSSCHEDULED[6] MEDSCONTINUOUS[7] MEDSPRN[8] Assessment and Plan Kathy Ballard is a 50 y.o. female with a history of opioid use disorder admitted for septic arthritis of lumbar spine Formal consultation performed prior, see note for further details Opioid Use Disorder Patient previously on methadone through [facility] but discontinued dosing 06/10 Patient last received 50 mg methadone on 07/04 did not want to continue methadone Successfully transitioned to buprenorphine via very low dose induction Continue 2 mg SL bup/nal twice daily Avoid BENCH INSPECTOR depressant medications that may increase risk of resp depression or overdose Patient was seen by psychiatry and has declined first line medications for anxiety and sleep. Patient would benefit from harm reduction counseling and supplies including fentanyl test strips and Narcan Cocaine Use Patient may benefit from harm reduction supplies including fentanyl test strips and Narcan prior todischarge Engaged with the college sports coach during hospital course We will continue to follow Thank you for the interesting consultation Please reach out with any questions or concerns Principal Problem: Septic arthritis of lumbar spine ([facility] V24) Provider Attestation Electronically signed by Joe Shine PA-C [1] Allergies Allergen Reactions Hydroxyzine Angioedema Benadryl Allergy Decongestant Risperidone [2] Past Medical History: Diagnosis Date Anemia Disease of thyroid gland [3] No past surgical history on file. [4] No family history on file. [5] Social History Tobacco Use Smoking Status Never Smokeless Tobacco Never [6] ascorbic acid, 250 mg, oral, Daily buprenorphine-naloxone, 1 tablet, sublingual, BID cloNIDine, 0.1 mg, oral, q8h YESENIA docusate sodium, 100 mg, oral, BID enoxaparin, 40 mg, subcutaneous, q24h YESENIA ferrous sulfate, 325 mg, oral, BID gabapentin, 100 mg, oral, q8h YESENIA sertraline, 25 mg, oral, Daily sodium chloride, 10 mL, intravenous, BID vancomycin, 750 mg, intravenous, q12h [7] [8] PRN medications: acetaminophen, calcium carbonate, ondansetron (ZOFRAN-ODT) disintegrating tablet OR ondansetron, oxyCODONE, prochlorperazine OR prochlorperazine OR prochlorperazine, Insert peripheral IV AND Maintain IV access AND Saline lock IV AND sodium chloride AND sodium chloride, sodium chloride, traZODone Cosigned by Micheline Shah DO at 07/15/2025 11:35 AM EST * Alisha Galeana - 07/12/2025 9:57 AM EST IM-signed at bedside copy given and signed copy placed in chart on @ 9:52 am * ERIKA Rahman - 07/12/2025 9:24 AM EST Western Philosophy Professor- Progress Note Patient has a bed offer for [facility]. Discussed with patient, RN present. She is concerned that none of her family has transportation and her daughter would not be able to visit. Contacted pending referrals, we discussed my return around lunch to discuss further. I urged her to consider placement to benefit her health. ICC aware. Case management web content & social media manager will remain available to assess, support, provide advocacy and assist with discharge planning as appropriate. * Thalia Curran RN - 07/11/2025 7:14 PM EST Goals: Identify possible barriers to meeting goals/advancing plan of care: SNF placement Stability of the patient: Moderately Stable - Low risk of patient condition declining or worsening End of Shift Summary: Medically cleared for d/c; awaiting bed placement for iv abx. PICC line in place. Resting comfortably with pain managed on current regimen. * ERIKA Rahman - 07/11/2025 3:53 PM EST Western Philosophy Professor- Progress Note This typewriter assembly and parts inspector met with patient with CM conference planning manager to discuss referrals, patient agreed to expansion of referrals. Questions answered patient voiced understanding. Case management web content & social media manager will remain available to assess, support, provide advocacy and assist with discharge planning as appropriate. * Yeimi Santos - 07/11/2025 2:54 PM EST SPIRITUAL CARE Date/Time:07/11/25 at 2:54 PM EST Type of Visit: Initial Visit and Coffee Weigher Rounding Reason for Visit: Spiritual/Emotional Support and Spiritual Assessment Time Spent: 25 Minutes Location: [facility] Sacramental Encounters: Spiritual Distress Assessment: Spiritual Distress Assessment at beginning of visit Meaning - Overall Life Balance: Some evidence of unmet spiritual need Transcendence: No evidence of unmet spiritual need Values - Acknowledgement: No evidence of unmet spiritual need Values - Control: No evidence of unmet spiritual need Psycho-Social Identity: No evidence of unmet spiritual need SDAT Beginning of Visit Average Score: 0.2 Spiritual Distress Assessment at end of visit Meaning - Overall Life Balance: Some evidence of unmet spiritual need Transcendence: No evidence of unmet spiritual need Values - Acknowledgement: No evidence of unmet spiritual need Values - Control: No evidence of unmet spiritual need Psycho-Social Identity: No evidence of unmet spiritual need SDAT End of Visit Average Score: 0.2 Spiritual Assessment/Distress Spiritual Care Assessment: Assessment: Kathy, was awake, alert, sitting on the bed resting at the time of visit. Listen as she shared health condition prior to admission, progress and improvement and discharge plan. Hopefuldischarge to rehab place and therapy be the needed solution post discharge from hospital. Voiced her role in the family as caregiver to her mom and others. Voiced missing her autistic daughter, I love her so much, Lora, is my special gift'. She shared some of the way Lora, bring chidi to her heart. Shared video of Lora, dancing and having fun at home. She was observed getting emotional andtearful while sharing who she misses daughter. Mirela religious listed as Advent but prefer spiritual I believe in prayer, nature etc . Voiced appreciation for the visit and support. Intervention: NE Spiritual Care Interventions : provided support, explored hope, facilitate storytelling, and listened empathically Outcomes: distress reduced, expressed gratitude, and expressed peace Plan of Care: Visit as needed *Reference: Spiritual Distress Assessment Tool: The SDAT is a clinical tool used by chaplains to identify unmet spiritual and emotional needs that can impact Goals of Care in the following categories: Spiritual Distress Assessment Legend Spiritual Needs Related Questions Meaning Are you having difficulties coping with what is happening to your now? Does your hospitalization have any repercussions on the way you live usually? Transcendence Do you have a particular religious, mirela, or spirituality? Is your religious/spirituality/mirela challenged by what is happening to you now? Values Do you think that the health professionals caring for you know you well enough? Do you feel that you are participating in the decisions made about your care? Psycho-Social Identity Do you have any worries or difficulties regarding your family or other persons close to you? Do you feel lonely? Do you have links to your mirela community? SCALE 0= no evidence of unmet spiritual needs 1= some evidence of unmet spiritual needs 2= substantial evidence of unmet spiritual needs 3= evidence of severe unmet spiritual needs * Adonis Mckeon - 07/11/2025 12:24 PM EST Provisioning Specialist Note I met with the pt in their room. They were sitting on bed watching TV. She was in good spirits and mentioned that she was ready to go once a SNF placement was made. She will require multiple weeks onIV antibiotics. I will continue to support and follow up while in our care. Adonis Mckeon Certified Provisioning Specialist [address] [place] [id number] Provisioning Specialist Office [address] [place] [address] - Provisioning Specialist Office - Addiction Office Rm 304 [email or web address] * Micheline Shah DO - 07/11/2025 11:06 AM EST Images from the original note were not included. Kathy Ballard 1975 [id number] Author: Micheline Shah DO DOS: 07/11/2025 Requesting Service: Hospitalist Service Chief Complaint: Septic arthritis of lumbar spine (CMS/HCC V24) Reason for Consultation: Opioid use disorder Source of History: Patient and chart Subjective History of Present Illness: Kathy Ballard is a 50 y.o. female with a history of opioid use disorder admitted for septic arthritis of lumbar spine. Patient is known to our service from previous admission on 06/30 -07/02 for same. Patient has successfully tolerated low dose buprenorphine transition to 2mg SL BID. Plans to continue suboxone and go to SNF for antibiotics. Is happy with current dose and wishes to remain on current dose. Reports got a few hours of sleep. Allergies: Allergies[1] Home Medications: Prior to Admission medications Not on File Past Medical History: Medical History[2] Past Surgical History: Surgical History[3] Family History: Family History[4] Social History: Tobacco Use History[5] Social History Substance and Sexual Activity Alcohol Use None Social History Substance and Sexual Activity Drug Use Not on file Objective ROS: as above Last Recorded Vitals: Blood pressure (!) 122/91, pulse 77, temperature 36.9 ??C (98.4 ??F), temperature source Temporal, resp. rate 15, height 1.524 m (60 ), weight 54.1 kg (119 lb 3.2 oz), SpO2 100%. Physical Exam Gen: NAD HEENT: pupils normal, OP clear Skin: No rashes or lesions Neuro: Alert and oriented, No tremor Pysch: Mood and affect normal Labs: Lab Results Component Value Date GLUCOSE 84 07/08/2025 CALCIUM 8.9 07/08/2025 NA 140 07/08/2025 K 3.8 07/08/2025 CO2 27 07/08/2025 CL 108 07/08/2025 BUN 22 07/08/2025 CREATININE 0.66 07/11/2025 Lab Results Component Value Date WBC 5.1 07/08/2025 HGB 7.6 (L) 07/08/2025 HCT 26.7 (L) 07/08/2025 MCV 72.8 (L) 07/08/2025 PLT 314 07/08/2025 Imaging: Vascular US duplex upper extremity venous left Narrative: INDICATION: Superficial Thrombophlebitis of the Arm Venous duplex ultrasound left upper extremity Comparison: None provided Findings: Accessible deep venous segments are fully compressible with normal Doppler color flow and spectral tracings. Intraluminal echoes and noncompressibility in mid aspect of the cephalic vein, consistent with superficial thrombophlebitis. Impression: 1. Negative for left upper extremity deep vein thrombosis. 2. Superficial thrombophlebitis of cephalic vein at mid segment. This document has been electronically signed by: Arina Burt MD on 07/07/2025 18:19:19 Meds: MEDSSCHEDULED[6] MEDSCONTINUOUS[7] MEDSPRN[8] Assessment and Plan Kathy Ballard is a 50 y.o. female with a history of opioid use disorder admitted for septic arthritis of lumbar spine. Opioid Use Disorder Patient previously on methadone through [facility] but discontinued dosing 06/10. Patient last received 50 mg methadone on 07/04 did not want to continue methadone. Successfully transitioned to buprenorphine via very low dose induction Continue 2 mg SL bup/nal per pt preference Avoid BENCH INSPECTOR depressant medications that may increase risk of resp depression or overdose Patient was seen by psychiatry and has declined first line medications for anxiety and sleep. Patient would benefit from harm reduction counseling and supplies including fentanyl test strips and Narcan Team will continue to follow and engage with patient. Cocaine use Patient may benefit from harm reduction supplies including fentanyl test strips and Narcan prior todischarge Thank you for the interesting consultation. Please reach out with any questions or concerns. Principal Problem: Septic arthritis of lumbar spine ([facility] V24) Provider Attestation Electronically signed by Micheline Shah DO [1] Allergies Allergen Reactions Hydroxyzine Angioedema Benadryl Allergy Decongestant Risperidone [2] Past Medical History: Diagnosis Date Anemia Disease of thyroid gland [3] No past surgical history on file. [4] No family history on file. [5] Social History Tobacco Use Smoking Status Never Smokeless Tobacco Never [6] ascorbic acid, 250 mg, oral, Daily buprenorphine-naloxone, 1 tablet, sublingual, BID cloNIDine, 0.1 mg, oral, q8h YESENIA docusate sodium, 100 mg, oral, BID enoxaparin, 40 mg, subcutaneous, q24h YESENIA ferrous sulfate, 325 mg, oral, BID gabapentin, 100 mg, oral, q8h YESENIA sertraline, 25 mg, oral, Daily sodium chloride, 10 mL, intravenous, BID vancomycin, 750 mg, intravenous, q12h [7] [8] PRN medications: acetaminophen, calcium carbonate, LORazepam, ondansetron (ZOFRAN-ODT) disintegrating tablet OR ondansetron, oxyCODONE, prochlorperazine OR prochlorperazine OR prochlorperazine, Insert peripheral IV AND Maintain IV access AND Saline lock IV AND sodium chloride AND sodium chloride, sodium chloride, zolpidem * Filipe Iqbal RN - 07/10/2025 2:39 PM EST Goals: Identify possible barriers to meeting goals/advancing plan of care: Stability of the patient: Moderately Stable - Low risk of patient condition declining or worsening End of Shift Summary: Problem: Physical Regulation:Infection Management Goal: Complications related to the disease process, condition or treatment will be avoided or minimized Outcome: Progressing * ERIKA Rahman - 07/10/2025 2:34 PM EST Western Philosophy Professor- Progress Note Patient continues to require acute level hospital care. JORGITO: 07/11/25 Barriers: med adjustment, IV ABT, placement, auth Disposition: SNF Case management web content & social media manager will remain available to assess, support, provide advocacy and assist with discharge planning as appropriate. * Prabhjot Neely MD - 07/10/2025 2:25 PM EST Images from the original note were not included. RAQUEL PROGRESS NOTE Date: 07/10/2025 Author: Prabhjot Neely MD Patient ID: Kathy Ballard is a 50 y.o. female : 1975 MR#: [id number] SUBJECTIVE Subjective Patient seen and examined by bedside Vitals, labs and images reviewed Blood cultures from 07/05 negative Blood cultures from 07/03 growing MRSA Appreciate ID disposition. Continue IV vancomycin. End of treatment 08/30 Hydromorphone discontinued. Continue Suboxone. Status post PICC line placement Allergies Hydroxyzine, Benadryl allergy decongestant, and Risperidone Current Medications: MEDSSCHEDULED[1] MEDSCONTINUOUS[2] MEDSPRN[3] OBJECTIVE Vitals: 07/09/256 07/09/25 2156 07/10/25 0412 07/10/25 0815 BP: (!) 166/104 128/70 (!) 131/99 (!) 122/94 BP Location: Left arm Left arm Left arm Left arm Patient Position: Lying Sitting Sitting Pulse: 86 90 71 Resp: 16 16 15 Temp: 36.6 ??C (97.9 ??F) 36.7 ??C (98 ??F) 36.7 ??C (98.1 ??F) TempSrc: Temporal Temporal Temporal SpO2: 100% 100% 100% Weight: Height: Physical Exam General : Pt lying in bed in no acute distress Head : NC/AT Eyes : EOMI Resp : CTA B/L CVS : RRR, no audible murmurs GI : Abd Soft, NT, ND, +BS Neuro : Alert and oriented x 3, follows commands LABS HEMATOLOGY Lab Results Component Value Date WBC 5.1 07/08/2025 HGB 7.6 (L) 07/08/2025 HCT 26.7 (L) 07/08/2025 MCV 72.8 (L) 07/08/2025 PLT 314 07/08/2025 CHEMISTRY Lab Results Component Value Date GLUCOSE 84 07/08/2025 NA 140 07/08/2025 K 3.8 07/08/2025 CO2 27 07/08/2025 CL 108 07/08/2025 BUN 22 07/08/2025 CREATININE 0.81 07/08/2025 EGFR 90 07/08/2025 CALCIUM 8.9 07/08/2025 MG 2.2 07/08/2025 ANIONGAP 5 07/08/2025 Imaging: Vascular US duplex upper extremity venous left Narrative: INDICATION: Superficial Thrombophlebitis of the Arm Venous duplex ultrasound left upper extremity Comparison: None provided Findings: Accessible deep venous segments are fully compressible with normal Doppler color flow and spectral tracings. Intraluminal echoes and noncompressibility in mid aspect of the cephalic vein, consistent with superficial thrombophlebitis. Impression: 1. Negative for left upper extremity deep vein thrombosis. 2. Superficial thrombophlebitis of cephalic vein at mid segment. This document has been electronically signed by: Arina Burt MD on 07/07/2025 18:19:19 ASSESSMENT & PLAN 49-year-old female with a history of IV drug use, OUD maintained on methadone, acute worsening of chronic back pain, anemia of chronic disease and thyroid disease presents with low back pain in the setting of MRSA bacteremia. MRSA bacteremia Numerous skin ulcerations In the setting of known IV drug use and numerous skin ulcerations and open sores. Blood cultures from 07/03 growing MRSA Repeat blood cultures from 07/05 negative Continue IV vancomycin Infectious disease on board. Appreciate recommendations. Will need IV vancomycin till 08/30/2025 Septic arthritis of the L4/5 with surrounding cellulitis Appreciate neurosurgery input. No surgical intervention required at this time since pathogen is known and neuroexam is intact. They recommend office follow-up in 6 weeks. A small left central L5-S1 disc herniation was also noted. Treat underlying cause with IV antibiotics. Added gabapentin for radiculopathy- patient is refusing this. Polysubstance abuse with withdrawal IVDU Generalized anxiety disorder Continue as needed analgesic, antipyretics and anxiety medication Addiction medicine following. Continue Suboxone Started on sertraline 25 mg daily for anxiety Severe iron deficiency anemia Monitor H&H Transfuse if hemoglobin falls below 7 Anemia panel consistent with iron deficiency. Continue iron supplementation Vaginal discharge Diflucan x 1 given Hepatitis C Viral load returns quantitative over 800,000. HIV was negative. ID recommends outpatient treatment Disposition: SNF discharge pending acceptance This dictation was performed using voice recognition software. Word substitution may have occurred and may have gone unnoticed and uncorrected. [1] ascorbic acid, 250 mg, oral, Daily buprenorphine-naloxone, 1 tablet, sublingual, BID cloNIDine, 0.1 mg, oral, q8h YESENIA docusate sodium, 100 mg, oral, BID enoxaparin, 40 mg, subcutaneous, q24h YESENIA ferrous sulfate, 325 mg, oral, BID gabapentin, 100 mg, oral, q8h YESENIA sertraline, 25 mg, oral, Daily sodium chloride, 10 mL, intravenous, BID vancomycin, 750 mg, intravenous, q12h [2] [3] PRN medications: acetaminophen, LORazepam, ondansetron (ZOFRAN-ODT) disintegrating tablet OR ondansetron, oxyCODONE, prochlorperazine OR prochlorperazine OR prochlorperazine, Insert peripheral IV AND Maintain IV access AND Saline lock IV AND sodium chloride AND sodium chloride, sodium chloride, zolpidem * Micheline Shah DO - 07/10/2025 10:12 AM EST Images from the original note were not included. aKthy Ballard 1975 [id number] Author: Micheline Shah DO DOS: 07/10/2025 Requesting Service: Hospitalist Service Chief Complaint: Septic arthritis of lumbar spine (CMS/HCC V24) Reason for Consultation: Opioid use disorder and Cocaine use disorder Source of History: Patient and chart Subjective History of Present Illness: Kathy Ballard is a 50 y.o. female with a history of opioid use disorder admitted for septic arthritis of lumbar spine. Patient is known to our service from previous admission on 06/30 -07/02 for same. Patient has successfully tolerated low dose buprenorphine transition and reports doing well on 2mgSL BID. Plans to continue suboxone and go to SNF for antibiotics. Unsure about injectable form doesnt want to be on it forever Allergies: Allergies[1] Home Medications: Prior to Admission medications Not on File Past Medical History: Medical History[2] Past Surgical History: Surgical History[3] Family History: Family History[4] Social History: Tobacco Use History[5] Social History Substance and Sexual Activity Alcohol Use None Social History Substance and Sexual Activity Drug Use Not on file Objective ROS: as above Last Recorded Vitals: Blood pressure (!) 122/94, pulse 71, temperature 36.7 ??C (98.1 ??F), temperature source Temporal, resp. rate 15, height 1.524 m (60 ), weight 54.1 kg (119 lb 3.2 oz), SpO2 100%. Physical Exam Gen: NAD HEENT: pupils normal, OP clear Skin: No rashes or lesions Neuro: Alert and oriented, No tremor Pysch: Mood and affect normal Labs: Lab Results Component Value Date GLUCOSE 84 07/08/2025 CALCIUM 8.9 07/08/2025 NA 140 07/08/2025 K 3.8 07/08/2025 CO2 27 07/08/2025 CL 108 07/08/2025 BUN 22 07/08/2025 CREATININE 0.81 07/08/2025 Lab Results Component Value Date WBC 5.1 07/08/2025 HGB 7.6 (L) 07/08/2025 HCT 26.7 (L) 07/08/2025 MCV 72.8 (L) 07/08/2025 PLT 314 07/08/2025 Imaging: Vascular US duplex upper extremity venous left Narrative: INDICATION: Superficial Thrombophlebitis of the Arm Venous duplex ultrasound left upper extremity Comparison: None provided Findings: Accessible deep venous segments are fully compressible with normal Doppler color flow and spectral tracings. Intraluminal echoes and noncompressibility in mid aspect of the cephalic vein, consistent with superficial thrombophlebitis. Impression: 1. Negative for left upper extremity deep vein thrombosis. 2. Superficial thrombophlebitis of cephalic vein at mid segment. This document has been electronically signed by: Arina Burt MD on 07/07/2025 18:19:19 Meds: MEDSSCHEDULED[6] MEDSCONTINUOUS[7] MEDSPRN[8] Assessment and Plan Kathy Ballard is a 50 y.o. female with a history of opioid use disorder admitted for septic arthritis of lumbar spine. Opioid Use Disorder Patient previously on methadone through [facility] but discontinued dosing 06/10. Patient last received 50 mg methadone on 07/04 did not want to continue methadone. Successfully transitioned to buprenorphine via very low dose induction Continue 2 mg SL bup/nal per pt preference -pt aware can be adjusted for pain Avoid BENCH INSPECTOR depressant medications that may increase risk of resp depression or overdose -please see DRUG ABUSE WORKER for confirmation of home medications Will continue to follow to review options for treatment and offer support Patient would benefit from harm reduction counseling and supplies including fentanyl test strips and Narcan Team will continue to follow and engage with patient. Cocaine use Counseled risks of cocaine Patient may benefit from harm reduction supplies including fentanyl test strips and Narcan prior todischarge Thank you for the interesting consultation. Please reach out with any questions or concerns. Principal Problem: Septic arthritis of lumbar spine (CMS/[facility] V24) Provider Attestation Electronically signed by Micheline Shah DO [1] Allergies Allergen Reactions Hydroxyzine Angioedema Benadryl Allergy Decongestant Risperidone [2] Past Medical History: Diagnosis Date Anemia Disease of thyroid gland [3] No past surgical history on file. [4] No family history on file. [5] Social History Tobacco Use Smoking Status Never Smokeless Tobacco Never [6] ascorbic acid, 250 mg, oral, Daily buprenorphine-naloxone, 1 tablet, sublingual, BID cloNIDine, 0.1 mg, oral, q8h YESENIA docusate sodium, 100 mg, oral, BID enoxaparin, 40 mg, subcutaneous, q24h YESENIA ferrous sulfate, 325 mg, oral, BID gabapentin, 100 mg, oral, q8h YESENIA sertraline, 25 mg, oral, Daily sodium chloride, 10 mL, intravenous, BID vancomycin, 750 mg, intravenous, q12h [7] [8] PRN medications: acetaminophen, HYDROmorphone, LORazepam, ondansetron (ZOFRAN-ODT) disintegrating tablet OR ondansetron, oxyCODONE, prochlorperazine OR prochlorperazine OR prochlorperazine, Insert peripheral IV AND Maintain IV access AND Saline lock IV AND sodium chloride AND sodium chloride, sodium chloride, zolpidem * Edith Chapa RD - 07/10/2025 9:42 AM EST 07/10/2025 @ 9:42 AM EST Nutrition Initial Assessment Reason for RD Intervention: Assessment Type: Protocol/Policy Reason for Assessment: LOS Anthropometrics: Height: 152.4 cm (60 ) Weight: 54.1 kg (119 lb 3.2 oz) Weight Method: Actual BMI (Calculated): 23.3 BMI Class: Normal IBW (lbs): 100 UBW (lbs): 125 Current Diet and Supplements: Dietary Orders (From admission, onward) Start Ordered 07/04/251927 Adult diet [facility]; General; Regular Diet effective now Question Answer Comment Location [facility] Diet Type (req) General General Diet Regular 07/04/25 192 History of presenting illness: Patient is a 50 y.o. female with a history of Medical History[1] Surgical History[2] admitted 07/02/2025 with Septic arthritis of lumbar spine ([facility] V24). Food/Nutrition History: Previous Diet / Nutrition Education / Counseling: Pt reports good appetite and intake prior to admission. Usually eats 4-5 meals daily. Denies issues with food access. Reports some difficulty chewingcrunchy foods as she does not have molars. Reports usual weight of 120-125 lb. No reported food allergies. Appetite FRUIT PICKER MACHINE OPERATOR: Good Intake FRUIT PICKER MACHINE OPERATOR: Stable Social Influencers of Health & Nutrition - Hunger Vital Signs: Within the past 12 months we worried whether our food would run out before we got money to buy more: Never true Within the past 12 months the food we bought just didn't last and we didn't have money to get more: Never true Who obtained answers? Hunger vital signs completed by RD. Assistance: No assistance needed at this time Weight History: Wt Readings from Last 10 Encounters: 07/02/25 54.1 kg (119 lb 3.2 oz) 07/01/25 56.7 kg (125 lb) Subjective Assessment: Pt seen for length of stay assessment. Admitted for MRSA bacteremia and septic arthritis to lumbar spine. History of IV drug use noted. Noted plan is likely for discharge to rehab for IV antibiotic therapy. Pt states PO intake has been good- consuming 75-100% of meals. Reviewed preferences and updated in [facility]. Noted constipation with last BM documented on 06/30- last given bowel meds yesterday Nutrition-Related Lab Values: Results from last 7 days Lab Units 07/08/25 0602 07/06/25 0546 07/05/25 0636 SODIUM mmol/L 140 < > 137 POTASSIUM mmol/L 3.8 < > 4.4 MAGNESIUM mg/dL 2.2 < > 2.4 CHLORIDE mmol/L 108 < > 105 CO2 mmol/L 27 < > 25 BUN mg/dL 22 < > 19 CREATININE mg/dL 0.81 < > 0.88 EGFR mL/min/1.73m2 90 < > 81 CALCIUM mg/dL 8.9 < > 8.9 BILIRUBIN TOTAL mg/dL -- -- 0.2 ALK PHOS unit/L -- -- 76 ALT unit/L -- -- 15 AST unit/L -- -- 17 GLUCOSE mg/dL 84 < > 121* WBC AUTO K/mcL 5.1 < > 5.9 < > = values in this interval not displayed. No results found for: LIPASE Medications: MEDSSCHEDULED[3] CONTINUOUS: MEDSCONTINUOUS[4] MEDSPRN[5] Energy Needs: kcal, gm protein, mL fluid per day. Total Energy Estimated Needs: 7957-5745 kcal (25-30 kcal/kg actual weight), 54- 65 g (1-1.2 g/kg actual weight) Height: 152.4 cm (60 ) Temp: 36.7 ??C (98.1 ??F) Food/Nutrition-Current Status: Intake Type: P.O. Appetite: Good Intake Amount (%): 75-100% Intake Assessment: Adequate Nutrition Focused Physical Findings: Overall Appearance: No findings of muscle or fat depletion per visual assessment Nerves and Cognition: Alert, Oriented Skin: Per wound RN- nonhealing scabs to left and right arms Nutrition Diagnosis: Code Type: None Identified Status: New Diagnosis: Increased Nutrient Needs Etiology: Increased demand for nutrient Symptoms: increased protein needs for wound healing (multiple scabs to arms) Nutrition Interventions: Diet Order, Meals/Snacks Continue diet as ordered (regular diet) Monitor adequacy of PO intake; consider offering snacks/supplements if pt consuming <65% of meals on follow up- pt likely meeting nutritional needs with meals at this time Reviewed meal preferences with pt. Updated in [place] meal planning program/ discussed with diet office staff. Follow weights, labs, I/O. Goals: Patient will consume greater than or equal to 75% meals., Electrolytes within normal range., Maintain weight., Stooling appropriately., and Wound healing progress. Monitoring/Evaluation: Fluid/Beverage Intake, Food Intake, Weight, Renal/Electrolyte Profile, Gastrointestinal Profile, Diet Order Follow Up: Nutrition Priority Level: Moderate RD remains available and will continue to follow. Signature: Edith Chapa RD [1] Past Medical History: Diagnosis Date Anemia Disease of thyroid gland [2] No past surgical history on file. [3] ascorbic acid, 250 mg, oral, Daily buprenorphine-naloxone, 1 tablet, sublingual, BID cloNIDine, 0.1 mg, oral, q8h YESENIA docusate sodium, 100 mg, oral, BID enoxaparin, 40 mg, subcutaneous, q24h YESENIA ferrous sulfate, 325 mg, oral, BID gabapentin, 100 mg, oral, q8h YESENIA sertraline, 25 mg, oral, Daily sodium chloride, 10 mL, intravenous, BID vancomycin, 750 mg, intravenous, q12h [4] [5] PRN medications: acetaminophen, HYDROmorphone, LORazepam, ondansetron (ZOFRAN-ODT) disintegrating tablet OR ondansetron, oxyCODONE, prochlorperazine OR prochlorperazine OR prochlorperazine, Insert peripheral IV AND Maintain IV access AND Saline lock IV AND sodium chloride AND sodium chloride, sodium chloride, zolpidem * Debra Amaya RN - 07/10/2025 5:19 AM EST Goals: Identify possible barriers to meeting goals/advancing plan of care: IV vanco, pain management Stability of the patient: Moderately Stable - Low risk of patient condition declining or worsening End of Shift Summary: Pt calm and cooperative during care. Expresses 7/10 back pain, prn pain medication administered per MAR with adequate relief reported by pt. Pt up ad ney in room and hallway. BUE dressings changed by this RN. Pt in room completing puzzle, expresses no questions or concerns at this time. Bed alarm remains within pt reach, rings appropriately. Care continues. * Thalia Curran RN - 07/09/2025 6:59 PM EST Goals: Identify possible barriers to meeting goals/advancing plan of care: IV abx; SNF placement Stability of the patient: Moderately Stable - Low risk of patient condition declining or worsening End of Shift Summary: Social work following for placement; PICC nurse aware of need for line with iv abx. Pain managed on current regimen. * ERIKA Lawrence - 07/09/2025 6:48 PM EST This typewriter assembly and parts inspector met with Kathy in the presence of nursing to confirm interest in rehab placement forIV therapy until 08-30-25. Patient agreed to establish referrals. Pt is informed referrals will be established locally and if no local bed availability willing to consider [facility]. Pt declines to extend referral to [place] [facility]. Social work to follow. * Prabhjot Neely MD - 07/09/2025 2:17 PM EST Images from the original note were not included. [facility] PROGRESS NOTE Date: 07/09/2025 Author: Prabhjot Neely MD Patient ID: Kathy Ballard is a 50 y.o. female : 1975 MR#: [id number] SUBJECTIVE Subjective Patient seen and examined by bedside Vitals, labs and images reviewed Blood cultures from 07/05 negative Blood cultures from 07/03 growing MRSA Appreciate ID disposition. Continue IV vancomycin. End of treatment 08/30 PICC line placement today SNF search underway Allergies Hydroxyzine, Benadryl allergy decongestant, and Risperidone Current Medications: MEDSSCHEDULED[1] MEDSCONTINUOUS[2] MEDSPRN[3] OBJECTIVE Vitals: 07/08/25 2031 07/09/25 0205 07/09/25 0210 07/09/25 0805 BP: (!) 133/104 (!) 138/101 130/84 137/67 BP Location: Right arm Left arm Left arm Left arm Patient Position: Lying Sitting Sitting Pulse: 108 100 70 Resp: 20 18 Temp: 36.8 ??C (98.2 ??F) 36.7 ??C (98.1 ??F) 36.2 ??C (97.1 ??F) TempSrc: Temporal Oral Tympanic SpO2: 100% 100% 100% Weight: Height: Physical Exam General : Pt lying in bed in no acute distress Head : NC/AT Eyes : EOMI Resp : CTA B/L CVS : RRR, no audible murmurs GI : Abd Soft, NT, ND, +BS Neuro : Alert and oriented x 3, follows commands LABS HEMATOLOGY Lab Results Component Value Date WBC 5.1 07/08/2025 HGB 7.6 (L) 07/08/2025 HCT 26.7 (L) 07/08/2025 MCV 72.8 (L) 07/08/2025 PLT 314 07/08/2025 CHEMISTRY Lab Results Component Value Date GLUCOSE 84 07/08/2025 NA 140 07/08/2025 K 3.8 07/08/2025 CO2 27 07/08/2025 CL 108 07/08/2025 BUN 22 07/08/2025 CREATININE 0.81 07/08/2025 EGFR 90 07/08/2025 CALCIUM 8.9 07/08/2025 MG 2.2 07/08/2025 ANIONGAP 5 07/08/2025 Imaging: Vascular US duplex upper extremity venous left Narrative: INDICATION: Superficial Thrombophlebitis of the Arm Venous duplex ultrasound left upper extremity Comparison: None provided Findings: Accessible deep venous segments are fully compressible with normal Doppler color flow and spectral tracings. Intraluminal echoes and noncompressibility in mid aspect of the cephalic vein, consistent with superficial thrombophlebitis. Impression: 1. Negative for left upper extremity deep vein thrombosis. 2. Superficial thrombophlebitis of cephalic vein at mid segment. This document has been electronically signed by: Arina Burt MD on 07/07/2025 18:19:19 ASSESSMENT & PLAN 49-year-old female with a history of IV drug use, OUD maintained on methadone, acute worsening of chronic back pain, anemia of chronic disease and thyroid disease presents with low back pain in the setting of MRSA bacteremia. MRSA bacteremia Numerous skin ulcerations In the setting of known IV drug use and numerous skin ulcerations and open sores. Blood cultures from 07/03 growing MRSA Repeat blood cultures from 07/05 negative Continue IV vancomycin Infectious disease on board. Appreciate recommendations. Will need IV vancomycin till 08/30/2025 Septic arthritis of the L4/5 with surrounding cellulitis Appreciate neurosurgery input. No surgical intervention required at this time since pathogen is known and neuroexam is intact. They recommend office follow-up in 6 weeks. A small left central L5-S1 disc herniation was also noted. Treat underlying cause with IV antibiotics. Added gabapentin for radiculopathy- patient is refusing this. Polysubstance abuse with withdrawal IVDU Generalized anxiety disorder Continue as needed analgesic, antipyretics and anxiety medication Addiction medicine following. Continue Suboxone Started on sertraline 25 mg daily for anxiety Severe iron deficiency anemia Monitor H&H Transfuse if hemoglobin falls below 7 Anemia panel consistent with iron deficiency. Continue iron supplementation Vaginal discharge Diflucan x 1 given Hepatitis C Viral load returns quantitative over 800,000. HIV was negative. ID recommends outpatient treatment Disposition: SNF discharge pending acceptance This dictation was performed using voice recognition software. Word substitution may have occurred and may have gone unnoticed and uncorrected. [1] ascorbic acid, 250 mg, oral, Daily buprenorphine-naloxone, 1 tablet, sublingual, BID cloNIDine, 0.1 mg, oral, q8h YESENIA docusate sodium, 100 mg, oral, BID enoxaparin, 40 mg, subcutaneous, q24h YESENIA ferrous sulfate, 325 mg, oral, BID gabapentin, 100 mg, oral, q8h YESENIA sertraline, 25 mg, oral, Daily sodium chloride, 10 mL, intravenous, BID vancomycin, 750 mg, intravenous, q12h [2] [3] PRN medications: acetaminophen, HYDROmorphone, LORazepam, ondansetron (ZOFRAN-ODT) disintegrating tablet OR ondansetron, oxyCODONE, prochlorperazine OR prochlorperazine OR prochlorperazine, Insert peripheral IV AND Maintain IV access AND Saline lock IV AND sodium chloride AND sodium chloride, sodium chloride, zolpidem * Micheline Shah DO - 07/09/2025 12:35 PM EST Images from the original note were not included. Kathy Elio 1975 [id number] Author: Micheline Shah DO DOS: 07/09/2025 Requesting Service: Hospitalist Service Chief Complaint: Septic arthritis of lumbar spine (CMS/[facility] V24) Reason for Consultation: Opioid use disorder and Cocaine use disorder Source of History: Patient and chart Subjective History of Present Illness: Kathy Ballard is a 50 y.o. female with a history of opioid use disorder admitted for septic arthritis of lumbar spine. Patient is known to our service from previous admission on 06/30 -07/02 for same. Patient has successfully tolerated low dose buprenorphine transition and reports doing well on 2 SL BID. States it does not help with pain. Declines change in dose. Complains of [facility]. Allergies: Allergies[1] Home Medications: Prior to Admission medications Not on File Past Medical History: Medical History[2] Past Surgical History: Surgical History[3] Family History: Family History[4] Social History: Tobacco Use History[5] Social History Substance and Sexual Activity Alcohol Use None Social History Substance and Sexual Activity Drug Use Not on file Objective ROS: as above Last Recorded Vitals: Blood pressure 137/67, pulse 70, temperature 36.2 ??C (97.1 ??F), temperature source Tympanic, resp. rate 17, height 1.524 m (60 ), weight 54.1 kg (119 lb 3.2 oz), SpO2 100%. Physical Exam Gen: NAD, lying in bed HEENT: pupils normal, OP clear Skin: No rashes or lesions Neuro: Alert and oriented, No tremor Pysch: Depressed mood, withdrawn Labs: Lab Results Component Value Date GLUCOSE 84 07/08/2025 CALCIUM 8.9 07/08/2025 NA 140 07/08/2025 K 3.8 07/08/2025 CO2 27 07/08/2025 CL 108 07/08/2025 BUN 22 07/08/2025 CREATININE 0.81 07/08/2025 Lab Results Component Value Date WBC 5.1 07/08/2025 HGB 7.6 (L) 07/08/2025 HCT 26.7 (L) 07/08/2025 MCV 72.8 (L) 07/08/2025 PLT 314 07/08/2025 Imaging: Vascular US duplex upper extremity venous left Narrative: INDICATION: Superficial Thrombophlebitis of the Arm Venous duplex ultrasound left upper extremity Comparison: None provided Findings: Accessible deep venous segments are fully compressible with normal Doppler color flow and spectral tracings. Intraluminal echoes and noncompressibility in mid aspect of the cephalic vein, consistent with superficial thrombophlebitis. Impression: 1. Negative for left upper extremity deep vein thrombosis. 2. Superficial thrombophlebitis of cephalic vein at mid segment. This document has been electronically signed by: Arina Burt MD on 07/07/2025 18:19:19 Meds: MEDSSCHEDULED[6] MEDSCONTINUOUS[7] MEDSPRN[8] Assessment and Plan Kathy Ballard is a 50 y.o. female with a history of opioid use disorder admitted for septic arthritis of lumbar spine. Opioid Use Disorder Patient previously on methadone through [facility] but discontinued dosing 06/10 Patient last received 50 mg methadone on 07/04 did not want to continue methadone. Successfully transitioned to buprenorphine via very low dose induction Continue 2 mg SL bup/nal Dose can be increased/split to TID or QID to help manage pain Patient is a candidate for Brixadi and is considering weekly injectable dose Avoid B[employer]CH [employer]OR depressant medications that may increase risk of overdose Will continue to follow to review options for treatment and offer support Patient would benefit from harm reduction counseling and supplies including fentanyl test strips and Narcan Team will continue to follow and engage with patient. Cocaine use Counseled risks of cocaine Patient may benefit from harm reduction supplies including fentanyl test strips and Narcan prior todischarge Thank you for the interesting consultation. Please reach out with any questions or concerns. Principal Problem: Septic arthritis of lumbar spine ([facility] V24) Provider Attestation Electronically signed by Micheline Shah DO [1] Allergies Allergen Reactions Hydroxyzine Angioedema Benadryl Allergy Decongestant Risperidone [2] Past Medical History: Diagnosis Date Anemia Disease of thyroid gland [3] No past surgical history on file. [4] No family history on file. [5] Social History Tobacco Use Smoking Status Never Smokeless Tobacco Never [6] ascorbic acid, 250 mg, oral, Daily buprenorphine-naloxone, 1 tablet, sublingual, BID cloNIDine, 0.1 mg, oral, q8h YESENIA docusate sodium, 100 mg, oral, BID enoxaparin, 40 mg, subcutaneous, q24h YESENIA ferrous sulfate, 325 mg, oral, BID gabapentin, 100 mg, oral, q8h YESENIA sertraline, 25 mg, oral, Daily sodium chloride, 10 mL, intravenous, BID vancomycin, 750 mg, intravenous, q12h [7] [8] PRN medications: acetaminophen, HYDROmorphone, HYDROmorphone, LORazepam, ondansetron (ZOFRAN-ODT) disintegrating tablet OR ondansetron, prochlorperazine OR prochlorperazine OR prochlorperazine, Insert peripheral IV AND Maintain IV access AND Saline lock IV AND sodium chloride AND sodium chloride, sodium chloride, zolpidem * Debra Amaya RN - 07/09/2025 6:50 AM EST Goals: Identify possible barriers to meeting goals/advancing plan of care: constipation, pain management Stability of the patient: Moderately Unstable - Medium risk of patient condition declining or worsening End of Shift Summary: Pt calm and cooperative during care. PRN pain medication administered per MARwith moderate relief reported by pt. Pt states, I feel like I have to have a bowel movement, but then I can't go. Pt abdomen distended, bowel sounds present. Pt independent to BR and ambulate in room and hallway. Pt in bed at lowest locked position with call villalpando within reach, rings appropriately. Care continues. * ERIKA Rahman - 07/08/2025 5:07 PM EST Western Philosophy Professor- CM Progress Note Patient continues to require acute level hospital care. JORGITO: 07/10/25 Barriers: opioid treatment stability, IV ABT, placement/ auth, PASRR Disposition: SNF- referrals deferred at this time, pending conversation with patient regarding placement. Case management web content & social media manager will remain available to assess, support, provide advocacy and assist with discharge planning as appropriate. * Prabhjot Neely MD - 07/08/2025 3:03 PM EST Images from the original note were not included. RAQUEL PROGRESS NOTE Date: 07/08/2025 Author: Prabhjot Neely MD Patient ID: Kathy Ballard is a 50 y.o. female : 1975 MR#: [id number] SUBJECTIVE Subjective Patient seen and examined by bedside Vitals, labs and images reviewed Blood cultures from 07/05 negative Blood cultures from 07/03 growing MRSA Appreciate ID disposition. Continue IV vancomycin. End of treatment 08/30 Planing of vulvovaginal candidiasis. Diflucan 150 mg x 1 ordered Allergies Hydroxyzine, Benadryl allergy decongestant, and Risperidone Current Medications: MEDSSCHEDULED[1] MEDSCONTINUOUS[2] MEDSPRN[3] OBJECTIVE Vitals: 07/07/25 2303 07/08/25 0346 07/08/25 0812 07/08/25 1435 BP: (!) 135/98 (!) 144/101 108/81 (!) 128/92 BP Location: Left arm Left arm;Upper Right arm Right arm Patient Position: Lying Sitting Sitting Pulse: 88 96 71 99 Resp: 16 14 14 Temp: 37.1 ??C (98.8 ??F) 36.5 ??C (97.7 ??F) 37.4 ??C (99.3 ??F) TempSrc: Oral SpO2: 97% 100% 97% Weight: Height: Physical Exam General : Pt lying in bed in no acute distress Head : NC/AT Eyes : EOMI Resp : CTA B/L CVS : RRR, no audible murmurs GI : Abd Soft, NT, ND, +BS Neuro : Alert and oriented x 3, follows commands LABS HEMATOLOGY Lab Results Component Value Date WBC 5.1 07/08/2025 HGB 7.6 (L) 07/08/2025 HCT 26.7 (L) 07/08/2025 MCV 72.8 (L) 07/08/2025 PLT 314 07/08/2025 CHEMISTRY Lab Results Component Value Date GLUCOSE 84 07/08/2025 NA 140 07/08/2025 K 3.8 07/08/2025 CO2 27 07/08/2025 CL 108 07/08/2025 BUN 22 07/08/2025 CREATININE 0.81 07/08/2025 EGFR 90 07/08/2025 CALCIUM 8.9 07/08/2025 MG 2.2 07/08/2025 ANIONGAP 5 07/08/2025 Imaging: Vascular US duplex upper extremity venous left Narrative: INDICATION: Superficial Thrombophlebitis of the Arm Venous duplex ultrasound left upper extremity Comparison: None provided Findings: Accessible deep venous segments are fully compressible with normal Doppler color flow and spectral tracings. Intraluminal echoes and noncompressibility in mid aspect of the cephalic vein, consistent with superficial thrombophlebitis. Impression: 1. Negative for left upper extremity deep vein thrombosis. 2. Superficial thrombophlebitis of cephalic vein at mid segment. This document has been electronically signed by: Arina Burt MD on 07/07/2025 18:19:19 ASSESSMENT & PLAN 49-year-old female with a history of IV drug use, OUD maintained on methadone, acute worsening of chronic back pain, anemia of chronic disease and thyroid disease presents with low back pain in the setting of MRSA bacteremia. MRSA bacteremia Numerous skin ulcerations In the setting of known IV drug use and numerous skin ulcerations and open sores. Blood cultures from 07/03 growing MRSA Repeat blood cultures from 07/05 negative Continue IV vancomycin Infectious disease on board. Appreciate recommendations. Will need IV vancomycin till 08/30/2025 Septic arthritis of the L4/5 with surrounding cellulitis Appreciate neurosurgery input. No surgical intervention required at this time since pathogen is known and neuroexam is intact. They recommend office follow-up in 6 weeks. A small left central L5-S1 disc herniation was also noted. Treat underlying cause with IV antibiotics. Added gabapentin for radiculopathy- patient is refusing this. Polysubstance abuse with withdrawal IVDU Generalized anxiety disorder Patient is on a tapering dose of methadone and scheduled Buprenex but refusing both this morning. Only allowing IV hydromorphone Continue as needed analgesic, antipyretics and anxiety medication Addiction medicine following. Continue Suboxone Started on sertraline 25 mg daily for anxiety Severe iron deficiency anemia Monitor H&H Transfuse if hemoglobin falls below 7 Anemia panel consistent with iron deficiency. Continue iron supplementation Vaginal discharge Diflucan x 1 ordered Hepatitis C Viral load returns quantitative over 800,000. HIV was negative. ID recommends outpatient treatment Disposition: SNF placement in the next 48 hours This dictation was performed using voice recognition software. Word substitution may have occurred and may have gone unnoticed and uncorrected. [1] ascorbic acid, 250 mg, oral, Daily buprenorphine-naloxone, 1 tablet, sublingual, BID cloNIDine, 0.1 mg, oral, q8h YESENIA docusate sodium, 100 mg, oral, BID enoxaparin, 40 mg, subcutaneous, q24h YESENIA ferrous sulfate, 325 mg, oral, BID fluconazole, 150 mg, oral, Once gabapentin, 100 mg, oral, q8h YESENIA sertraline, 25 mg, oral, Daily sodium chloride, 10 mL, intravenous, BID vancomycin, 750 mg, intravenous, q12h [2] [3] PRN medications: acetaminophen, HYDROmorphone, HYDROmorphone, LORazepam, ondansetron (ZOFRAN-ODT) disintegrating tablet OR ondansetron, prochlorperazine OR prochlorperazine OR prochlorperazine, Insert peripheral IV AND Maintain IV access AND Saline lock IV AND sodium chloride AND sodium chloride, sodium chloride, zolpidem * Julianna Orozco MD - 07/08/2025 2:32 PM EST Kathy Ballard is here for { Back Pain (Left AMA this morning- admitted for Septic arthritis of L4-L5 with surrounding cellulitis) Subjective Pain is better, feels overall better, tolerating ABx Review of Systems Review of Systems Constitutional: Negative. HENT: Negative. Respiratory: Negative. Cardiovascular: Negative. Gastrointestinal: Negative. Genitourinary: Negative. Musculoskeletal: Negative. Skin: Negative. Neurological: Negative. Physical Examination: Vitals: Visit Vitals BP (!) 128/92 (BP Location: Right arm, Patient Position: Sitting) Pulse 99 Temp 37.4 ??C (99.3 ??F) Resp 14 Physical Exam Vitals reviewed. Constitutional: Appearance: Normal appearance. HENT: Head: Normocephalic and atraumatic. Eyes: General: No scleral icterus. Cardiovascular: Rate and Rhythm: Normal rate and regular rhythm. Heart sounds: No murmur heard. No friction rub. No gallop. Pulmonary: Effort: No respiratory distress. Breath sounds: No stridor. No wheezing or rhonchi. Abdominal: General: There is no distension. Tenderness: There is no abdominal tenderness. There is no guarding or rebound. Musculoskeletal: General: No deformity or signs of injury. Skin: Coloration: Skin is not jaundiced or pale. Neurological: Mental Status: She is alert. Objective Recent Lab Results: Lab Results Component Value Date WBC 5.1 07/08/2025 RBC 3.70 (L) 07/08/2025 HGB 7.6 (L) 07/08/2025 HCT 26.7 (L) 07/08/2025 MCV 72.8 (L) 07/08/2025 MCHC 28.5 (L) 07/08/2025 RDW 21.8 (H) 07/08/2025 PLT 314 07/08/2025 MPV 9.8 07/08/2025 NRBC 0.0 07/08/2025 DIFF Lab Results Component Value Date LYMPHOPCT 28.3 07/08/2025 NEUTROABS 2.94 07/08/2025 LYMPHSABS 1.44 07/08/2025 MONOABS 0.40 07/08/2025 EOSABS 0.21 07/08/2025 BASOSABS 0.07 07/08/2025 IMMGRANABS 0.02 07/08/2025 RETIC No results found for: RETIC , RETICCTPCT Lab Results Component Value Date BLOODCX No growth at 2 days 07/05/2025 BLOODCX Culture in progress 07/05/2025 URINECX No growth 07/05/2025 Recent Results (from the past week) Blood Culture, Peripheral #1 Collection Time: 07/02/25 7:35 PM Specimen: Blood, Venous Result Value Ref Range Culture, Blood Methicillin-Resistant Staphylococcus aureus (AA) Gram Stain Result Anaerobic bottle Gram positive cocci in clusters (AA) Blood Culture, Peripheral Draw #1 Collection Time: 07/03/25 1:35 PM Specimen: Blood, Venous Result Value Ref Range Culture, Blood Methicillin-Resistant Staphylococcus aureus (AA) Gram Stain Result Aerobic bottle Gram positive cocci in clusters (AA) Susceptibility Methicillin-Resistant Staphylococcus aureus - PETTY Benzylpenicillin Resistant ug/ml Oxacillin Resistant ug/ml Gentamicin Susceptible ug/ml Ciprofloxacin Susceptible ug/ml Levofloxacin Susceptible ug/ml Erythromycin Resistant ug/ml Clindamycin Susceptible ug/ml Linezolid Susceptible ug/ml Vancomycin Susceptible ug/ml Tetracycline Susceptible ug/ml Rifampin Susceptible ug/ml Trimethoprim/Sulfamethoxazole Susceptible ug/ml Blood culture pathogens molecular study Collection Time: 07/03/25 1:35 PM Specimen: Blood, Venous Result Value Ref Range Staphylococcus aureus Detected (A) Not Detected mecA/C and MREJ (MRSA) Detected (A) Not Detected Blood Culture, Peripheral Draw #2 Collection Time: 07/03/25 2:28 PM Specimen: Blood, Venous Result Value Ref Range Culture, Blood No growth at 5 days Culture blood Collection Time: 07/05/25 11:00 AM Specimen: Blood, Venous Result Value Ref Range Culture, Blood Culture in progress Culture blood Collection Time: 07/05/25 11:20 AM Specimen: Blood, Venous Result Value Ref Range Culture, Blood No growth at 2 days Chlamydia trachomatis and Neisseria gonorrhoeae molecular study Collection Time: 07/05/25 3:58 PM Specimen: Urine, Clean Catch Result Value Ref Range Neisseria gonorrhoeae PCR Negative Negative Chlamydia trachomatis PCR Negative Negative Culture urine Collection Time: 07/05/25 3:58 PM Specimen: Urine, Clean Catch Result Value Ref Range Culture, Urine No growth Recent Imaging Findings: Vascular US duplex upper extremity venous left Result Date: 07/07/2025 Narrative: INDICATION: Superficial Thrombophlebitis of the Arm Venous duplex ultrasound left upper extremity Comparison: None provided Findings: Accessible deep venous segments are fully compressiblewith normal Doppler color flow and spectral tracings. Intraluminal echoes and noncompressibility inmid aspect of the cephalic vein, consistent with superficial thrombophlebitis. Impression: 1. Negative for left upper extremity deep vein thrombosis. 2. Superficial thrombophlebitis of cephalic vein at mid segment. This document has been electronically signed by: Arina Burt MD on 07/07/2025 18:19:19 MR Lumbar Spine wo and w Contrast Result Date: 07/01/2025 Narrative: INDICATION: hx of IVDA, r/o spinal epidural abscess MR lumbar spine with and without gadolinium Comparison: DX/CO/SR - XR L SPINE 2 3 VW - 10/26/25 08:53 EDT Findings: 5 lumbar type vertebral bodies are present by plain film. Alignment is normal. No acute fracture. There is moderate ill-defined STIR signal elevation and enhancement within the left inferior L4 and left superior L5 articulating facets. There is a peripherally enhancing moderate left L4-L5 facet joint effusion. Cauda equina and conus medullaris within normal limits. No epidural abscess. Mildly prominent retroperitoneal lymph nodes. Moderate ill- defined STIR signal elevation and enhancement within the left posterior p araspinous soft tissues at L4-L5. L1-L2: No significant canal nor foraminal stenosis. L2-L3:No significant canal nor foraminal stenosis. L3-L4:Mild facet and ligamentum flavum hypertrophy. Mild epidural lipomatosis. Mild canal stenosis. Mild bilateral foraminal stenosis. L4-L5: Mild disc desiccation and diffuse disc bulge. Mild bilateral facet hypertrophy. Mild canal stenosis. Moderate bilateral foraminal stenosis. L5-S1:Mild disc desiccation and diffuse disc bulge with superimposed left paracentral protrusion. Mild bilateral facet hypertrophy. Mild canal stenosis. Mild bilateral foraminal stenosis. Mild posterior deviation of the left S1 nerve root within the lateral recess. Impression: 1. Findings suggestive of septic arthritis involving the left L4-L5 facet joint with surrounding cellulitis. 2. Multilevel degenerative disc and facet disease, as well as ligamentum flavum hypertrophy. 3. Mild multilevel canal stenoses. 4. Multilevel mild and moderate foraminal stenoses. 5. Posterior deviation of the left S1 nerve root within the lateral recess at L5-S1. Correlation with clinical symptoms is recommended to assess relevance of this finding. This document has been electronically signed by: Rebeka Rawls MD on 07/01/2025 18:21:56 Transthoracic echocardiogram (TTE) complete with PRN contrast, bubble, strain, and 3D order panel Result Date: 07/01/2025 Narrative: Left ventricle cavity size is normal. Left ventricular systolic function is in the normal range with an ejection fraction of 55-60%. Right ventricle cavity is normal. Right ventricular systolic function is normal. No hemodynamic significant valvular abnormalities. No gross vegetation. Trivial pericardial effusion. XR Lumbar Spine 2-3 Views Result Date: 06/30/2025 Narrative: XR LUMBAR SPINE 2-3 VIEWS INDICATION: Pain TECHNIQUE: XR LUMBAR SPINE 2-3 VIEWS COMPARISON: No priors available. Impression: FINDINGS/IMPRESSION: Lumbar lordosis is maintained. No fracture. Mild multilevel degenerative endplate spurring. Disc space heights and facet joints are maintained. -------- FINAL REPORT -------- Dictated By: JOSSE POLK Dictated Date: 06/30/2025 10:09 ET Assigned Physician: JOSSE POLK Reviewed and Electronically Signed By: JOSSE POLK Signed Date: 06/30/2025 10:10 ET Workstation ID: [id number] Transcribed By: Self Edit Transcribed Date: 06/30/2025 10:09 ET Assessment/Plan: Kathy Ballard is a 50 y.o. female who has a past medical history of Anemia and Disease of thyroid gland.. The patient was admitted to the hospital on 07/02/2025 for back pain. The pt had initially presented with back pain 0n 06/30 and was found to have MRSA bacteremia. She had an MRI of her spine done yesterday AM which revealed L5/S1 septic arthritis. Unfortunately, she left AMA yesterday AM. She presented back to the hospital in the evening as she had worsening pain. She was started on Vanc and Zosyn. She is c/o back pain but no other deficits. . The ID service has been consulted for management during this patient's hospital stay. MRSA bacteremia 2/2 L5/S1 septic arthritis Substance use disorder Vanc dosing Chronic Hep C Continue Vanc goal 15-20, level 15.4, acceptable C/S cleared as of 07/05 TTE with no veg HIV, hep B negative, HCV VL 844K, discussed Tx options, if interested, will initiate as OP Will treat with 8 weeks of IV Abx Seen by neuurosurgery, no acute intervention planned Recommendations: 1. Continue vancomycin goal 15-20, EOT 08/30, please check weekly CBC, BMP and Vanc trough and fax to my office at [phone] 2. Hep C to be treated OP if pt agreeable ID to sign off I personally spent 41 minutes in this encounter. This included performing a detailed chart review, reviewing and independently interpreting labs ordered by other providers, performing a history and physical, monitoring a drug (Vanc) for toxicity in collaboration with pharmacy, counseling this patient/family, discussing the case with the primary team , coordinating his/her/their plan of care and performing complex medical decision making. The pt has a highly complex and life threatneing infection for which I am the primary specialist involved in managing antimicrobials * Adonis Mckeon - 07/08/2025 11:10 AM EST Provisioning Specialist Note I met with the pt in her room, she was sitting on the edge on the bed and in good spirits. We had the ability to talk about her barriers a little bit more with having to remain in the hospital. She told me that the reason she does not want to be on any MOUD because she wants to be able to go take her children on a cruise, and she does not want to feel like she is chained to it. She asked me a fewquestions on why they are able to transition from Methadone to Suboxone when she had heard that it isn't something that should be done. I was able to explain how and why and that it can be successfully done with the overview of a provider, which she found out that it was a successful transition this past weekend. She stated she is considering the injectable form of Suboxone. Her biggest wish is to be able to take a shower, as she has not been able to do so. We were able to find out the correct way for her to do so, which is to have the dr put in an order for it. She was in better spirits today, but when talking about her stay at a SNF after, she got a little weepy. I was able to provide support and will continue to follow up while in our care. Adonis Mckeon Certified Provisioning Specialist [address] [place] [id number] Provisioning Specialist Office [address] [place] [id number] - Provisioning Specialist Office - Addiction Office [address] [email or web address] * Micheline Shah DO - 07/08/2025 10:35 AM EST Images from the original note were not included. Kathy Ballard 1975 [id number] Author: Micheline Shah DO DOS: 07/08/2025 Requesting Service: Hospitalist Service Chief Complaint: Septic arthritis of lumbar spine ([facility] V24) Reason for Consultation: Opioid use disorder Source of History: Patient and chart Subjective History of Present Illness: Kathy Ballard is a 50 y.o. female with a history of opioid use disorder re- admitted for septic arthritis of lumbar spine. Patient is known to our service from previous admission on 06/30 for same with self directed discharge on 07/02. Patient has decided she does not want to continue methadone and has successfully tolerated low dose buprenorphine transition. Does not find it helps with pain. Doesnot want to increase dose. Considering injectable form. Wants a shower. Allergies: Allergies[1] Home Medications: Prior to Admission medications Not on File Past Medical History: Medical History[2] Past Surgical History: Surgical History[3] Family History: Family History[4] Social History: Tobacco Use History[5] Social History Substance and Sexual Activity Alcohol Use None Social History Substance and Sexual Activity Drug Use Not on file Objective ROS: as above Last Recorded Vitals: Blood pressure 108/81, pulse 71, temperature 36.5 ??C (97.7 ??F), resp. rate 14, height 1.524 m (60 ), weight 54.1 kg (119 lb 3.2 oz), SpO2 100%. Physical Exam Gen: NAD HEENT: pupils normal, OP clear Skin: +scarring, +bilateral UE dressings intact Neuro: Alert and oriented, No tremor Pysch: Mood and affect normal Labs: Lab Results Component Value Date GLUCOSE 84 07/08/2025 CALCIUM 8.9 07/08/2025 NA 140 07/08/2025 K 3.8 07/08/2025 CO2 27 07/08/2025 CL 108 07/08/2025 BUN 22 07/08/2025 CREATININE 0.81 07/08/2025 Lab Results Component Value Date WBC 5.1 07/08/2025 HGB 7.6 (L) 07/08/2025 HCT 26.7 (L) 07/08/2025 MCV 72.8 (L) 07/08/2025 PLT 314 07/08/2025 Imaging: Vascular US duplex upper extremity venous left Narrative: INDICATION: Superficial Thrombophlebitis of the Arm Venous duplex ultrasound left upper extremity Comparison: None provided Findings: Accessible deep venous segments are fully compressible with normal Doppler color flow and spectral tracings. Intraluminal echoes and noncompressibility in mid aspect of the cephalic vein, consistent with superficial thrombophlebitis. Impression: 1. Negative for left upper extremity deep vein thrombosis. 2. Superficial thrombophlebitis of cephalic vein at mid segment. This document has been electronically signed by: Arina Burt MD on 07/07/2025 18:19:19 Meds: MEDSSCHEDULED[6] MEDSCONTINUOUS[7] MEDSPRN[8] Assessment and Plan Kathy Ballard is a 50 y.o. female with a history of opioid use disorder admitted for septic arthritis of lumbar spine. Opioid Use Disorder Patient previously on methadone through [facility] but discontinued dosing 06/10 Patient last received 50 mg methadone on 07/04 did not want to continue methadone. Successfully transitioned to buprenorphine via very low dose induction Continue 2 mg SL bup/nal per pt request Of note, this is a subtherapeutic dose and may need to be increased as full agonist opioids are tapered Patient is a candidate for Brixadi and is considering weekly injectable dose Discontinue methadone Avoid [employer] depressant medications that may increase risk of overdose Will continue to follow to review options for treatment and offer support Patient would benefit from harm reduction counseling and supplies including fentanyl test strips and Narcan Team will continue to follow and engage with patient. Cocaine use Counseled risk of cocaine including cardiac arrhythmias, stroke, fentanyl contamination and risk ofoverdose Patient may benefit from harm reduction supplies including fentanyl test strips and Narcan prior todischarge Thank you for the interesting consultation. Please reach out with any questions or concerns. Principal Problem: Septic arthritis of lumbar spine ([facility] V24) Provider Attestation Electronically signed by Micheline Shah DO [1] Allergies Allergen Reactions Hydroxyzine Angioedema Benadryl Allergy Decongestant Risperidone [2] Past Medical History: Diagnosis Date Anemia Disease of thyroid gland [3] No past surgical history on file. [4] No family history on file. [5] Social History Tobacco Use Smoking Status Never Smokeless Tobacco Never [6] ascorbic acid, 250 mg, oral, Daily buprenorphine-naloxone, 1 tablet, sublingual, BID cloNIDine, 0.1 mg, oral, q8h [facility] docusate sodium, 100 mg, oral, BID enoxaparin, 40 mg, subcutaneous, q24h [facility]ENIA ferrous sulfate, 325 mg, oral, BID gabapentin, 100 mg, oral, q8h [facility] hydrOXYzine pamoate, 25 mg, oral, Once sodium chloride, 10 mL, intravenous, BID vancomycin, 750 mg, intravenous, q12h [7] [8] PRN medications: acetaminophen, HYDROmorphone, HYDROmorphone, LORazepam, ondansetron (ZOFRAN-ODT) disintegrating tablet OR ondansetron, prochlorperazine OR prochlorperazine OR prochlorperazine, Insert peripheral IV AND Maintain IV access AND Saline lock IV AND sodium chloride AND sodium chloride, sodium chloride, zolpidem * Jessy Sanford RN - 07/07/2025 3:44 PM EST Goals: Identify possible barriers to meeting goals/advancing plan of care: iv ABX Stability of the patient: Moderately Stable - Low risk of patient condition declining or worsening End of Shift Summary: pt oob. Tolerating diet. Vss. Medicated for pain with relief. Wound dressingsto arms changed today. Continue to follow plan of care. * VITALIY Rodríguez - 07/07/2025 11:08 AM EST Images from the original note were not included. RAQUEL PROGRESS NOTE Date: 07/07/2025 Author: VITALIY Rodríguez Patient ID: Kathy Ballard is a 50 y.o. female : 1975 MR#: [id number] SUBJECTIVE Subjective Patient is only reporting anxiety. She thinks the pain has improved. She is able to ambulate in theroom. Night sweats have resolved. Surveillance cultures finally are showing no growth from 07/05. She remains afebrile. Allergies Hydroxyzine, Benadryl allergy decongestant, and Risperidone Current Medications: MEDSSCHEDULED[1] MEDSCONTINUOUS[2] MEDSPRN[3] OBJECTIVE Vitals: 07/06/25 1937 07/07/25 0017 07/07/25 0323 07/07/25 0745 BP: 129/85 127/85 127/81 119/88 BP Location: Right arm Right arm Right arm Right arm Patient Position: Lying Lying Lying Lying Pulse: 87 89 73 67 Resp: 18 16 14 Temp: 37 ??C (98.6 ??F) 36.9 ??C (98.5 ??F) 36.6 ??C (97.9 ??F) TempSrc: Oral Temporal SpO2: 99% 98% 100% 99% Weight: Height: Physical Exam Constitutional: Appearance: Normal appearance. HENT: Head: Normocephalic and atraumatic. Mouth/Throat: Mouth: Mucous membranes are moist. Eyes: Extraocular Movements: Extraocular movements intact. Conjunctiva/sclera: Conjunctivae normal. Pupils: Pupils are equal, round, and reactive to light. Cardiovascular: Rate and Rhythm: Normal rate and regular rhythm. Heart sounds: Normal heart sounds. Pulmonary: Effort: Pulmonary effort is normal. Breath sounds: Normal breath sounds. No wheezing, rhonchi or rales. Abdominal: General: Bowel sounds are normal. There is no distension. Palpations: Abdomen is soft. There is no mass. Tenderness: There is no abdominal tenderness. There is no guarding. Musculoskeletal: General: Normal range of motion. Cervical back: Normal range of motion. Skin: General: Skin is warm and dry. Neurological: General: No focal deficit present. Mental Status: She is alert and oriented to person, place, and time. Psychiatric: Mood and Affect: Mood normal. Behavior: Behavior normal. LABS HEMATOLOGY Lab Results Component Value Date WBC 5.0 07/07/2025 HGB 7.9 (L) 07/07/2025 HCT 27.5 (L) 07/07/2025 MCV 72.6 (L) 07/07/2025 PLT 358 07/07/2025 CHEMISTRY Lab Results Component Value Date GLUCOSE 87 07/07/2025 NA 139 07/07/2025 K 4.0 07/07/2025 CO2 30 07/07/2025 CL 106 07/07/2025 BUN 18 07/07/2025 CREATININE 0.78 07/07/2025 EGFR 94 07/07/2025 CALCIUM 9.0 07/07/2025 MG 2.3 07/07/2025 ANIONGAP 3 07/07/2025 Imaging: MR Lumbar Spine wo and w Contrast Narrative: INDICATION: hx of IVDA, r/o spinal epidural abscess MR lumbar spine with and without gadolinium Comparison: DX/CO/SR - XR L SPINE 2 3 VW - 06/30/25 08:53 EDT Findings: 5 lumbar type vertebral bodies are present by plain film. Alignment is normal. No acute fracture. There is moderate ill-defined STIR signal elevation and enhancement within the left inferior L4 and left superior L5 articulating facets. There is a peripherally enhancing moderate left L4-L5 facet joint effusion. Cauda equina and conus medullaris within normal limits. No epidural abscess. Mildly prominent retroperitoneal lymph nodes. Moderate ill-defined STIR signal elevation and enhancement within the left posterior paraspinous soft tissues at L4-L5. L1-L2: No significant canal nor foraminal stenosis. L2-L3:No significant canal nor foraminal stenosis. L3-L4:Mild facet and ligamentum flavum hypertrophy. Mild epidural lipomatosis. Mild canal stenosis. Mild bilateral foraminal stenosis. L4-L5: Mild disc desiccation and diffuse disc bulge. Mild bilateral facet hypertrophy. Mild canal stenosis. Moderate bilateral foraminal stenosis. L5-S1:Mild disc desiccation and diffuse disc bulge with superimposed left paracentral protrusion. Mild bilateral facet hypertrophy. Mild canal stenosis. Mild bilateral foraminal stenosis. Mild posterior deviation of the left S1 nerve root within the lateral recess. Impression: 1. Findings suggestive of septic arthritis involving the left L4-L5 facet joint with surrounding cellulitis. 2. Multilevel degenerative disc and facet disease, as well as ligamentum flavum hypertrophy. 3. Mild multilevel canal stenoses. 4. Multilevel mild and moderate foraminal stenoses. 5. Posterior deviation of the left S1 nerve root within the lateral recess at L5-S1. Correlation with clinical symptoms is recommended to assess relevance of this finding. This document has been electronically signed by: Rebeka Rawls MD on 07/01/2025 18:21:56 Transthoracic echocardiogram (TTE) complete with PRN contrast, bubble, strain, and 3D order panel Left ventricle cavity size is normal. Left ventricular systolic function is in the normal range with an ejection fraction of 55-60%. Right ventricle cavity is normal. Right ventricular systolic function is normal. No hemodynamic significant valvular abnormalities. No gross vegetation. Trivial pericardial effusion. ASSESSMENT & PLAN 49-year-old female with a history of IV drug use, OUD maintained on methadone, acute worsening of chronic back pain, anemia of chronic disease and thyroid disease presents with low back pain in the setting of MRSA bacteremia. MRSA bacteremia Numerous skin ulcerations In the setting of known IV drug use and numerous skin ulcerations and open sores. Surveillance cultures showing clearance on 07/05. No growth now in 48 hours. Continue IV vancomycin. Trough slightly elevated at 21 today. Await infectious disease input on Tuesday to determine treatment course to establish discharge disposition. Septic arthritis of the L4/5 with surrounding cellulitis - Appreciate neurosurgery input. No surgical intervention required at this time since pathogen is known and neuroexam is intact. They recommend office follow-up in 6 weeks. A small left central L5-S1disc herniation was also noted. Treat underlying cause with IV antibiotics. Added gabapentin for radiculopathy- patient is refusing this. Polysubstance abuse with withdrawal IVDU - Patient is on a tapering dose of methadone and scheduled Buprenex but refusing both this morning.Only allowing IV hydromorphone -Continue as needed analgesic, antipyretics and anxiety medication - Addiction medicine follow-up today. Patient was seen by psychiatry in follow- up. Psychiatry reports patient did not wish to initiate any new medications and felt the patient may be drug-seeking. Severe iron deficiency anemia Anemia of chronic disease - Patient reports she has not had menstruation in over a year. She reports chronic constipation having a bowel movement approximately once every few weeks when she does there is bright red blood. Shethinks she may have hemorrhoids. - Anemia panel consistent with iron deficiency and low vitamin B12 stores as well - Rectal exam negative per ED provider - Appreciate hematology input. IV iron administered 07/06 hemoglobin stable at 7.9 Thyroid disease? Reported in H&P. TSH was within normal limits History of major depressive disorder Last hospitalized in 2019 at [facility]. She is currently not on any treatment. Repeatpsychiatric evaluation, patient declined additional treatments. Continues to report ongoing anxiety. She has been receiving lorazepam on average 1-2 times per day. Vaginal discharge Patient concerned about a yeast infection. Urine negative for GC chlamydia. No yeast noted either. UA not consistent with UTI. Continue to monitor. Hepatitis C Viral load returns quantitative over 800,000. HIV was negative. ID recommends outpatient treatment DAILY CARE CHECKLIST Length of Stay: 04d 14h 12m VTE Prophylaxis: Lovenox Resuscitation: Full Code - Default PCP: Pcp Unknown Physician Disposition/patient need hospital stay because : Follow-up with infectious disease on 07/08 for discharge antibiotic plan Health care proxy with phone number : Case discussed with attending [1] ascorbic acid, 250 mg, oral, Daily buprenorphine-naloxone, 1 tablet, sublingual, BID cloNIDine, 0.1 mg, oral, q8h [facility] docusate sodium, 100 mg, oral, BID enoxaparin, 40 mg, subcutaneous, q24h [facility] ferrous sulfate, 325 mg, oral, BID gabapentin, 100 mg, oral, q8h [facility] hydrOXYzine pamoate, 25 mg, oral, Once [START ON 07/08/2025] methadone, 10 mg, oral, Daily sodium chloride, 10 mL, intravenous, BID vancomycin, 750 mg, intravenous, q12h [2] [3] PRN medications: acetaminophen, HYDROmorphone, HYDROmorphone, LORazepam, ondansetron (ZOFRAN-ODT) disintegrating tablet OR ondansetron, prochlorperazine OR prochlorperazine OR prochlorperazine, Insert peripheral IV AND Maintain IV access AND Saline lock IV AND sodium chloride AND sodium chloride, sodium chloride, zolpidem Cosigned by Suzette Alexandre MD at 07/07/2025 1:14 PM EST * VITALIY Rodríguez - 07/06/2025 11:12 AM EDT Images from the original note were not included. RAQUEL PROGRESS NOTE Date: 07/06/2025 Author: VITALIY Rodríguez Patient ID: Kathy Ballard is a 50 y.o. female : 1975 MR#: [id number] SUBJECTIVE Subjective Patient continues to report pain and anxiety. She is experiencing night sweats but no documented fevers. Reports her dressings have been changed as scheduled. Denies having a bowel movement of yet. Allergies Hydroxyzine, Benadryl allergy decongestant, and Risperidone Current Medications: MEDSSCHEDULED[1] MEDSCONTINUOUS[2] MEDSPRN[3] OBJECTIVE Vitals: 07/05/25200407/05/25 2316 07/06/25 0330 07/06/25 0719 BP: 111/86 127/79 116/76 98/66 BP Location: Right arm Right arm Patient Position: Sitting Lying Pulse: 73 80 67 71 Resp: 20 12 16 Temp: 36.8 ??C (98.2 ??F) 36.1 ??C (96.9 ??F) 36.9 ??C (98.5 ??F) 35.8 ??C (96.5 ??F) TempSrc: Temporal Temporal SpO2: 100% 100% 100% 100% Weight: Height: Physical Exam Constitutional: Appearance: Normal appearance. HENT: Head: Normocephalic and atraumatic. Mouth/Throat: Mouth: Mucous membranes are moist. Eyes: Extraocular Movements: Extraocular movements intact. Conjunctiva/sclera: Conjunctivae normal. Pupils: Pupils are equal, round, and reactive to light. Cardiovascular: Rate and Rhythm: Normal rate and regular rhythm. Heart sounds: Normal heart sounds. Pulmonary: Effort: Pulmonary effort is normal. Breath sounds: Normal breath sounds. No wheezing, rhonchi or rales. Abdominal: General: Bowel sounds are normal. There is no distension. Palpations: Abdomen is soft. There is no mass. Tenderness: There is no abdominal tenderness. There is no guarding. Musculoskeletal: General: Normal range of motion. Cervical back: Normal range of motion. Comments: Point tenderness in the sacral SI region. No bruising noted or deformities Skin: General: Skin is warm and dry. Neurological: General: No focal deficit present. Mental Status: She is alert and oriented to person, place, and time. Psychiatric: Mood and Affect: Mood normal. Behavior: Behavior normal. LABS HEMATOLOGY Lab Results Component Value Date WBC 5.1 07/06/2025 HGB 8.1 (L) 07/06/2025 HCT 28.4 (L) 07/06/2025 MCV 71.5 (L) 07/06/2025 PLT 404 (H) 07/06/2025 CHEMISTRY Lab Results Component Value Date GLUCOSE 88 07/06/2025 NA 140 07/06/2025 K 4.4 07/06/2025 CO2 29 07/06/2025 CL 108 07/06/2025 BUN 13 07/06/2025 CREATININE 0.63 07/06/2025 EGFR 110 07/06/2025 CALCIUM 8.9 07/06/2025 MG 2.3 07/06/2025 ANIONGAP 3 07/06/2025 Imaging: MR Lumbar Spine wo and w Contrast Narrative: INDICATION: hx of IVDA, r/o spinal epidural abscess MR lumbar spine with and without gadolinium Comparison: DX/CO/SR - XR L SPINE 2 3 VW - 06/30/25 08:53 EDT Findings: 5 lumbar type vertebral bodies are present by plain film. Alignment is normal. No acute fracture. There is moderate ill-defined STIR signal elevation and enhancement within the left inferior L4 and left superior L5 articulating facets. There is a peripherally enhancing moderate left L4-L5 facet joint effusion. Cauda equina and conus medullaris within normal limits. No epidural abscess. Mildly prominent retroperitoneal lymph nodes. Moderate ill-defined STIR signal elevation and enhancement within the left posterior paraspinous soft tissues at L4-L5. L1-L2: No significant canal nor foraminal stenosis. L2-L3:No significant canal nor foraminal stenosis. L3-L4:Mild facet and ligamentum flavum hypertrophy. Mild epidural lipomatosis. Mild canal stenosis. Mild bilateral foraminal stenosis. L4-L5: Mild disc desiccation and diffuse disc bulge. Mild bilateral facet hypertrophy. Mild canal stenosis. Moderate bilateral foraminal stenosis. L5-S1:Mild disc desiccation and diffuse disc bulge with superimposed left paracentral protrusion. Mild bilateral facet hypertrophy. Mild canal stenosis. Mild bilateral foraminal stenosis. Mild posterior deviation of the left S1 nerve root within the lateral recess. Impression: 1. Findings suggestive of septic arthritis involving the left L4-L5 facet joint with surrounding cellulitis. 2. Multilevel degenerative disc and facet disease, as well as ligamentum flavum hypertrophy. 3. Mild multilevel canal stenoses. 4. Multilevel mild and moderate foraminal stenoses. 5. Posterior deviation of the left S1 nerve root within the lateral recess at L5-S1. Correlation with clinical symptoms is recommended to assess relevance of this finding. This document has been electronically signed by: Rebeka Rawls MD on 07/01/2025 18:21:56 Transthoracic echocardiogram (TTE) complete with PRN contrast, bubble, strain, and 3D order panel Left ventricle cavity size is normal. Left ventricular systolic function is in the normal range with an ejection fraction of 55-60%. Right ventricle cavity is normal. Right ventricular systolic function is normal. No hemodynamic significant valvular abnormalities. No gross vegetation. Trivial pericardial effusion. ASSESSMENT & PLAN 49-year-old female with a history of IV drug use, OUD maintained on methadone, acute worsening of chronic back pain, anemia of chronic disease and thyroid disease presents with low back pain in the setting of MRSA bacteremia. MRSA bacteremia Numerous skin ulcerations In the setting of known IV drug use and numerous skin ulcerations and open sores. Follow-up cultures from 07/03 w MRSA despite treatment with IV vancomycin. Troph is appropriate. Surveillance cultures from 07/05 are in progress. If they turn positive as well we will try to arrangeTEE for Tuesday. Patient is aware and agreeable to the plan. Septic arthritis of the L4/5 with surrounding cellulitis - Appreciate neurosurgery input. No surgical intervention required at this time since pathogen is known and neuroexam is intact. They recommend office follow-up in 6 weeks. A small left central L5-S1disc herniation was also noted. Treat underlying cause with IV antibiotics. Added gabapentin for radiculopathy- patient is refusing this. Polysubstance abuse with withdrawal IVDU - Patient is on a tapering dose of methadone and scheduled Buprenex but refusing both this morning.Only allowing IV hydromorphone -Continue as needed analgesic, antipyretics and anxiety medication - Addiction medicine follow-up today. Patient was seen by psychiatry in follow- up. Psychiatry reports patient did not wish to initiate any new medications and felt the patient may be drug-seeking. Severe iron deficiency anemia - Patient reports she has not had menstruation in over a year. She reports chronic constipation having a bowel movement approximately once every few weeks when she does there is bright red blood. Shethinks she may have hemorrhoids. - Anemia panel consistent with iron deficiency and low vitamin B12 stores as well - Rectal exam negative per ED provider - Appreciate hematology input. Hemoglobin improved at 8.1 today. Thyroid disease? Reported in H&P. TSH was within normal limits History of major depressive disorder Last hospitalized in 2019 at [facility]. She is currently not on any treatment. Repeatpsychiatric evaluation, patient declined additional treatments. Vaginal discharge Patient concerned about a yeast infection. Urine negative for GC chlamydia. No yeast noted either. UA not consistent with UTI. Continue to monitor. Hepatitis C Viral load returns quantitative over 800,000. HIV was negative. ID recommends outpatient treatment DAILY CARE CHECKLIST Length of Stay: 03d 14h 16m VTE Prophylaxis: Add Lovenox Resuscitation: Full Code - Default PCP: Pcp Unknown Physician Disposition/patient need hospital stay because : Acutely ill Health care proxy with phone number : Case discussed with attending [1] ascorbic acid, 250 mg, oral, Daily buprenorphine, 0.3 mg, intravenous, BID [START ON 07/07/2025] buprenorphine-naloxone, 1 tablet, sublingual, BID cloNIDine, 0.1 mg, oral, q8h YESENIA docusate sodium, 100 mg, oral, BID enoxaparin, 40 mg, subcutaneous, q24h YESENIA ferrous sulfate, 325 mg, oral, BID gabapentin, 100 mg, oral, q8h YESENIA hydrOXYzine pamoate, 25 mg, oral, Once [START ON 07/08/2025] methadone, 10 mg, oral, Daily [START ON 07/07/2025] methadone, 20 mg, oral, Daily sodium chloride, 10 mL, intravenous, BID vancomycin, 750 mg, intravenous, q12h [2] [3] PRN medications: acetaminophen, HYDROmorphone, HYDROmorphone, LORazepam, ondansetron (ZOFRAN-ODT) disintegrating tablet OR ondansetron, prochlorperazine OR prochlorperazine OR prochlorperazine, Insert peripheral IV AND Maintain IV access AND Saline lock IV AND sodium chloride AND sodium chloride, sodium chloride, zolpidem Cosigned by Suzette Alexandre MD at 07/06/2025 12:17 PM EDT Associated attestation - Suzette Alexandre MD - 07/06/2025 12:17 PM EDT This is a split/shared visit with VITALIY Rodríguez. I personally performed the medical decision making (MDM) for the care of this patient on 07/06/25 as documented below Patient seen and examined on the date of service, discussed with Gwendolyn BURKS regarding planof care. Agree with assessment and plan as outlined below. Continues to complains of some back pain. No fevers noted. Awaiting blood cultures from 07/05/2025 at this time. Continue with IV vancomycin for antibiotics for septic arthritis,Persistent bacteremia. If repeat cultures come back positive, may need SEFERINO for further evaluation Suzette Alexandre MD 07/06/25 12:16 PM EDT * Imelda TuesdayAMBER - 07/06/2025 5:11 AM EDT Goals: Identify possible barriers to meeting goals/advancing plan of care: IV abx, elopement attempt, anxiety Problem: Physical Regulation:Infection Management Goal: Signs and symptoms of infection will decrease Outcome: Progressing Problem: Physical Regulation:Infection Management Goal: Complications related to the disease process, condition or treatment will be avoided or minimized Outcome: Progressing Problem: Physical Regulation:Infection Management Goal: Diagnostic test results will improve Outcome: Progressing Problem: Cognitive: Anderson Chilango Fall Risk Goal: Mobility requiring assistance of person or device Outcome: Progressing Problem: Sensory: Acute Pain Goal: Pain level will improve or be tolerable Outcome: Progressing Problem: Sensory: Acute Pain Goal: Ability to develop a pain control plan will improve Outcome: Progressing Problem: Safety: Substance Use Disorder Goal: Risk of injury will improve Outcome: Progressing Problem: Safety: Substance Use Disorder Goal: Use of risky behaviors will decrease Outcome: Progressing Stability of the patient: Moderately Unstable - Medium risk of patient condition declining or worsening End of Shift Summary: At approximately 2300 this RN went to assess pt. Pt was not in room and the floor ([address]) was searched. Pt was not on floor ([address]). Security was notified and missing person code was initiated. Per security pt was found exiting elevator on first floor and attempting to get to ED . Pt was brought back to room by security. Pt's VSS. Neuro's intact. Provider notified (VITALIY Blum). Nighttime nursing stevedoring supervisor notified (Raquel Pavon). Pt c/o anxiety and difficulty sleeping, prn medication given per MAR, pt slept through the night with no further c/o anxiety. Pt independent in room. Call villalpando within reach. Care continues. * Imelda Berkowitz RN - 07/05/2025 11:16 PM EDT At approximately 2300 this RN went to assess pt. Pt was not in room and the floor ([address]) was searched. Pt was not on floor ([address]). Security was notified and missing person code was initiated. Persecurity pt was found exiting elevator on first floor and attempting to get to ED . Pt was broughtback to room by security. Pt's VSS. Neuro's intact. Provider notified (VITALIY Blum). Nighttime nursing stevedoring supervisor notified (Raquel Pavon). * Chana Vela RN - 07/05/2025 6:53 PM EDT Goals: Identify possible barriers to meeting goals/advancing plan of care: pending SNF placement for IV antibiotics Stability of the patient: Moderately Stable - Low risk of patient condition declining or worsening End of Shift Summary: VSS, independent in the room. Problem: Physical Regulation:Infection Management Goal: Signs and symptoms of infection will decrease Outcome: Progressing Goal: Complications related to the disease process, condition or treatment will be avoided or minimized Outcome: Progressing Goal: Diagnostic test results will improve Outcome: Progressing Problem: Cognitive: Anderson Chilango Fall Risk Goal: Mobility requiring assistance of person or device Outcome: Progressing Problem: Sensory: Acute Pain Goal: Pain level will improve or be tolerable Outcome: Progressing Goal: Ability to develop a pain control plan will improve Outcome: Progressing Problem: Safety: Substance Use Disorder Goal: Risk of injury will improve Outcome: Progressing Goal: Use of risky behaviors will decrease Outcome: Progressing * Julianna Orozco MD - 07/05/2025 5:13 PM EDT Kathy Ballard is here for { Back Pain (Left AMA this morning- admitted for Septic arthritis of L4-L5 with surrounding cellulitis) Subjective Feels better, denies any complaints, tolerating ABx Review of Systems Review of Systems Constitutional: Negative. HENT: Negative. Respiratory: Negative. Cardiovascular: Negative. Gastrointestinal: Negative. Genitourinary: Negative. Musculoskeletal: Positive for back pain. Skin: Negative. Physical Examination: Vitals: Visit Vitals BP (!) 143/76 (BP Location: Right arm, Patient Position: Lying) Pulse 59 Temp 36.6 ??C (97.9 ??F) Resp 16 Physical Exam Vitals reviewed. Constitutional: Appearance: Normal appearance. HENT: Head: Normocephalic and atraumatic. Eyes: General: No scleral icterus. Cardiovascular: Rate and Rhythm: Normal rate and regular rhythm. Heart sounds: No murmur heard. No friction rub. No gallop. Pulmonary: Effort: No respiratory distress. Breath sounds: No stridor. No wheezing or rhonchi. Abdominal: General: There is no distension. Tenderness: There is no abdominal tenderness. There is no guarding or rebound. Musculoskeletal: General: No deformity or signs of injury. Skin: Coloration: Skin is not jaundiced or pale. Neurological: Mental Status: She is alert. Objective Recent Lab Results: Lab Results Component Value Date WBC 5.9 07/05/2025 RBC 3.80 07/05/2025 HGB 7.6 (L) 07/05/2025 HCT 27.0 (L) 07/05/2025 MCV 71.8 (L) 07/05/2025 MCHC 28.1 (L) 07/05/2025 RDW 20.4 (H) 07/05/2025 PLT 440 (H) 07/05/2025 MPV 9.5 07/05/2025 NRBC 0.0 07/05/2025 DIFF Lab Results Component Value Date LYMPHOPCT 27.0 07/05/2025 NEUTROABS 3.42 07/05/2025 LYMPHSABS 1.58 07/05/2025 MONOABS 0.50 07/05/2025 EOSABS 0.27 07/05/2025 BASOSABS 0.06 07/05/2025 IMMGRANABS 0.02 07/05/2025 RETIC No results found for: RETIC , RETICCTPCT Lab Results Component Value Date BLOODCX Culture in progress 07/05/2025 BLOODCX Culture in progress 07/05/2025 URINECX No growth 07/01/2025 Recent Results (from the past week) Blood Culture, Peripheral Draw #2 Collection Time: 06/30/25 7:46 AM Specimen: Blood, Venous Result Value Ref Range Culture, Blood Methicillin-Resistant Staphylococcus aureus (AA) Gram Stain Result Anaerobic bottle Gram positive cocci in clusters (AA) Susceptibility Methicillin-Resistant Staphylococcus aureus - PETTY Benzylpenicillin Resistant ug/ml Oxacillin Resistant ug/ml Gentamicin Susceptible ug/ml Ciprofloxacin Susceptible ug/ml Levofloxacin Susceptible ug/ml Erythromycin Resistant ug/ml Clindamycin Susceptible ug/ml Linezolid Susceptible ug/ml Vancomycin Susceptible ug/ml Tetracycline Susceptible ug/ml Rifampin Susceptible ug/ml Trimethoprim/Sulfamethoxazole Susceptible ug/ml Blood culture pathogens molecular study Collection Time: 06/30/25 7:46 AM Specimen: Blood, Venous Result Value Ref Range Staphylococcus aureus Detected (A) Not Detected mecA/C and MREJ (MRSA) Detected (A) Not Detected Blood Culture, Peripheral Draw #1 Collection Time: 06/30/25 9:03 AM Specimen: Blood, Venous Result Value Ref Range Culture, Blood No growth at 5 days Culture urine Collection Time: 07/01/25 2:41 AM Specimen: Urine, Clean Catch Result Value Ref Range Culture, Urine No growth Culture blood Collection Time: 07/01/25 8:28 AM Specimen: Blood, Venous Result Value Ref Range Culture, Blood No growth at 2 days Culture blood Collection Time: 07/01/25 8:33 AM Specimen: Blood, Venous Result Value Ref Range Culture, Blood No growth at 2 days Blood Culture, Peripheral #1 Collection Time: 07/02/25 7:35 PM Specimen: Blood, Venous Result Value Ref Range Culture, Blood Methicillin-Resistant Staphylococcus aureus (AA) Gram Stain Result Anaerobic bottle Gram positive cocci in clusters (AA) Blood Culture, Peripheral Draw #1 Collection Time: 07/03/25 1:35 PM Specimen: Blood, Venous Result Value Ref Range Culture, Blood Methicillin-Resistant Staphylococcus aureus (AA) Gram Stain Result Aerobic bottle Gram positive cocci in clusters (AA) Blood culture pathogens molecular study Collection Time: 07/03/25 1:35 PM Specimen: Blood, Venous Result Value Ref Range Staphylococcus aureus Detected (A) Not Detected mecA/C and MREJ (MRSA) Detected (A) Not Detected Blood Culture, Peripheral Draw #2 Collection Time: 07/03/25 2:28 PM Specimen: Blood, Venous Result Value Ref Range Culture, Blood No growth at 2 days Culture blood Collection Time: 07/05/25 11:00 AM Specimen: Blood, Venous Result Value Ref Range Culture, Blood Culture in progress Culture blood Collection Time: 07/05/25 11:20 AM Specimen: Blood, Venous Result Value Ref Range Culture, Blood Culture in progress Recent Imaging Findings: MR Lumbar Spine wo and w Contrast Result Date: 07/01/2025 Narrative: INDICATION: hx of IVDA, r/o spinal epidural abscess MR lumbar spine with and without gadolinium Comparison: DX/CO/SR - XR L SPINE 2 3 VW - 06/30/25 08:53 EDT Findings: 5 lumbar type vertebral bodies are present by plain film. Alignment is normal. No acute fracture. There is moderate ill-defined STIR signal elevation and enhancement within the left inferior L4 and left superior L5 articulating facets. There is a peripherally enhancing moderate left L4-L5 facet joint effusion. Cauda equina and conus medullaris within normal limits. No epidural abscess. Mildly prominent retroperitoneal lymph nodes. Moderate ill- defined STIR signal elevation and enhancement within the left posterior p araspinous soft tissues at L4-L5. L1-L2: No significant canal nor foraminal stenosis. L2-L3:No significant canal nor foraminal stenosis. L3-L4:Mild facet and ligamentum flavum hypertrophy. Mild epidural lipomatosis. Mild canal stenosis. Mild bilateral foraminal stenosis. L4-L5: Mild disc desiccation and diffuse disc bulge. Mild bilateral facet hypertrophy. Mild canal stenosis. Moderate bilateral foraminal stenosis. L5-S1:Mild disc desiccation and diffuse disc bulge with superimposed left paracentral protrusion. Mild bilateral facet hypertrophy. Mild canal stenosis. Mild bilateral foraminal stenosis. Mild posterior deviation of the left S1 nerve root within the lateral recess. Impression: 1. Findings suggestive of septic arthritis involving the left L4-L5 facet joint with surrounding cellulitis. 2. Multilevel degenerative disc and facet disease, as well as ligamentum flavum hypertrophy. 3. Mild multilevel canal stenoses. 4. Multilevel mild and moderate foraminal stenoses. 5. Posterior deviation of the left S1 nerve root within the lateral recess at L5-S1. Correlation with clinical symptoms is recommended to assess relevance of this finding. This document has been electronically signed by: Rebeka Rawls MD on 07/01/2025 18:21:56 Transthoracic echocardiogram (TTE) complete with PRN contrast, bubble, strain, and 3D order panel Result Date: 07/01/2025 Narrative: Left ventricle cavity size is normal. Left ventricular systolic function is in the normal range with an ejection fraction of 55-60%. Right ventricle cavity is normal. Right ventricular systolic function is normal. No hemodynamic significant valvular abnormalities. No gross vegetation. Trivial pericardial effusion. XR Lumbar Spine 2-3 Views Result Date: 06/30/2025 Narrative: XR LUMBAR SPINE 2-3 VIEWS INDICATION: Pain TECHNIQUE: XR LUMBAR SPINE 2-3 VIEWS COMPARISON: No priors available. Impression: FINDINGS/IMPRESSION: Lumbar lordosis is maintained. No fracture. Mild multilevel degenerative endplate spurring. Disc space heights and facet joints are maintained. -------- FINAL REPORT -------- Dictated By: JOSSE POLK Dictated Date: 06/30/2025 10:09 ET Assigned Physician: JOSSE POLK Reviewed and Electronically Signed By: JOSSE POLK Signed Date: 06/30/2025 10:10 ET Workstation ID: [id number] Transcribed By: Self Edit Transcribed Date: 06/30/2025 10:09 ET Assessment/Plan: Kathy Ballard is a 50 y.o. female who has a past medical history of Anemia and Disease of thyroid gland.. The patient was admitted to the hospital on 07/02/2025 for back pain. The pt had initially presented with back pain 0n 06/30 and was found to have MRSA bacteremia. She had an MRI of her spine done yesterday AM which revealed L5/S1 septic arthritis. Unfortunately, she left AMA yesterday AM. She presented back to the hospital in the evening as she had worsening pain. She was started on Vanc and Zosyn. She is c/o back pain but no other deficits. . The ID service has been consulted for management during this patient's hospital stay. MRSA bacteremia 2/2 L5/S1 septic arthritis Substance use disorder Vanc dosing Chronic Hep C Continue Vanc goal 15-20, level 18, acceptable Repeat C/S on 07/03 turned positive for MRSA TTE with no veg HIV, hep B negative, HCV VL 844K, discussed Tx options, if interested, will initiate as OP If C/S from today also turn positive, will need SEFERINO Seen by neuurosurgery, no acute intervention planned Recommendations: 1. Continue vancomycin goal 15-20 2. Await blood culture clearance 4. If blood cultures remain positive after today's most recent draw, will need SEFERINO 5. Hep C to be treated OP if pt greeable I personally spent 40 minutes in this encounter. This included performing a detailed chart review, reviewing and independently interpreting labs ordered by other providers, performing a history and physical, monitoring a drug (Vanc) for toxicity in collaboration with pharmacy, counseling this patient/family, discussing the case with the primary team , coordinating his/her/their plan of care and performing complex medical decision making. The pt has a highly complex and life threatneing infection for which I am the primary specialist involved in managing antimicrobials * VITALIY Guaman - 07/05/2025 3:36 PM EDT Images from the original note were not included. Kathy Ballard 1975 [id number] Author: IVTALIY Guaman DOS: 07/05/2025 Requesting Service: Hospitalist Service Chief Complaint: Septic arthritis of lumbar spine (CMS/HCC V24) Reason for Consultation: Opioid use disorder and Cocaine use disorder Source of History: Patient and chart Subjective History of Present Illness: Kathy Ballard is a 50 y.o. female with a history of opioid use disorder re- admitted for septic arthritis of lumbar spine Formal consultation performed prior, see note for further details Continues on low-dose buprenorphine induction She would like to discontinue methadone at the same time She feels tied to the daily attendance of methadone and wants some flexibility in her ALDAIR treatment She is anxious regarding med changes, hospitalization, etc. Allergies: Allergies[1] Home Medications: Prior to Admission medications Not on File Past Medical History: Medical History[2] Past Surgical History: Surgical History[3] Family History: Family History[4] Social History: Tobacco Use History[5] Social History Substance and Sexual Activity Alcohol Use None Social History Substance and Sexual Activity Drug Use Not on file Objective Last Recorded Vitals: Blood pressure (!) 143/76, pulse 59, temperature 36.6 ??C (97.9 ??F), resp. rate 16, height 1.524 m(60 ), weight 54.1 kg (119 lb 3.2 oz), SpO2 100%. Physical Exam Lying in bed Appears comfortable overall Pupils appropriate Normal cardiac rate No increased work of breathing Alert and oriented Conversive appropriately Labs: Lab Results Component Value Date GLUCOSE 121 (H) 07/05/2025 CALCIUM 8.9 07/05/2025 NA 137 07/05/2025 K 4.4 07/05/2025 CO2 25 07/05/2025 CL 105 07/05/2025 BUN 19 07/05/2025 CREATININE 0.88 07/05/2025 Lab Results Component Value Date WBC 5.9 07/05/2025 HGB 7.6 (L) 07/05/2025 HCT 27.0 (L) 07/05/2025 MCV 71.8 (L) 07/05/2025 PLT 440 (H) 07/05/2025 Imaging: MR Lumbar Spine wo and w Contrast Narrative: INDICATION: hx of IVDA, r/o spinal epidural abscess MR lumbar spine with and without gadolinium Comparison: DX/CO/SR - XR L SPINE 2 3 VW - 06/30/25 08:53 EDT Findings: 5 lumbar type vertebral bodies are present by plain film. Alignment is normal. No acute fracture. There is moderate ill-defined STIR signal elevation and enhancement within the left inferior L4 and left superior L5 articulating facets. There is a peripherally enhancing moderate left L4-L5 facet joint effusion. Cauda equina and conus medullaris within normal limits. No epidural abscess. Mildly prominent retroperitoneal lymph nodes. Moderate ill-defined STIR signal elevation and enhancement within the left posterior paraspinous soft tissues at L4-L5. L1-L2: No significant canal nor foraminal stenosis. L2-L3:No significant canal nor foraminal stenosis. L3-L4:Mild facet and ligamentum flavum hypertrophy. Mild epidural lipomatosis. Mild canal stenosis. Mild bilateral foraminal stenosis. L4-L5: Mild disc desiccation and diffuse disc bulge. Mild bilateral facet hypertrophy. Mild canal stenosis. Moderate bilateral foraminal stenosis. L5-S1:Mild disc desiccation and diffuse disc bulge with superimposed left paracentral protrusion. Mild bilateral facet hypertrophy. Mild canal stenosis. Mild bilateral foraminal stenosis. Mild posterior deviation of the left S1 nerve root within the lateral recess. Impression: 1. Findings suggestive of septic arthritis involving the left L4-L5 facet joint with surrounding cellulitis. 2. Multilevel degenerative disc and facet disease, as well as ligamentum flavum hypertrophy. 3. Mild multilevel canal stenoses. 4. Multilevel mild and moderate foraminal stenoses. 5. Posterior deviation of the left S1 nerve root within the lateral recess at L5-S1. Correlation with clinical symptoms is recommended to assess relevance of this finding. This document has been electronically signed by: Rebeka Rawls MD on 07/01/2025 18:21:56 Transthoracic echocardiogram (TTE) complete with PRN contrast, bubble, strain, and 3D order panel Left ventricle cavity size is normal. Left ventricular systolic function is in the normal range with an ejection fraction of 55-60%. Right ventricle cavity is normal. Right ventricular systolic function is normal. No hemodynamic significant valvular abnormalities. No gross vegetation. Trivial pericardial effusion. Meds: MEDSSCHEDULED[6] MEDSCONTINUOUS[7] MEDSPRN[8] Assessment and Plan Kathy Ballard is a 50 y.o. female with a history of opioid use disorder admitted for septic arthritis of lumbar spine Formal consultation performed prior, see note for further details Opioid Use Disorder Patient previously on methadone through [facility] but discontinued dosing 06/10 Patient last received 50 mg methadone on 07/04 but is clear she does not want to continue methadone I have ordered to decrease the methadone by 10mg daily starting tomorrow Reviewed risks of untreated OUD including fatal overdose and presented information on buprenorphine. Discussed risks and benefits and answered questions. Patient agreeable to inpatient buprenorphine initiation We have started very low dose buprenorphine initiation Day 1: 0.15 mg IV once Day 2: 0.15 mg IV BID Day 3: 0.3 mg IV once Day 4: 0.3 mg IV BID Then transition to SL form -- may be candidate for weekly Brixadi Continue treating pain with short acting opioids Avoid BENCH INSPECTOR depressant medications that may increase risk of overdose Will continue to follow to review options for treatment and offer support Patient would benefit from harm reduction counseling and supplies including fentanyl test strips and Narcan Team will continue to follow and engage with patient. Cocaine use Counseled risk of cocaine including cardiac arrhythmias, stroke, fentanyl contamination and risk ofoverdose Patient may benefit from harm reduction supplies including fentanyl test strips and Narcan prior todischarge Thank you for the interesting consultation. Please reach out with any questions or concerns. Principal Problem: Septic arthritis of lumbar spine ([facility] V24) Provider Attestation Electronically signed by VITALIY Guaman [1] Allergies Allergen Reactions Hydroxyzine Angioedema Benadryl Allergy Decongestant Risperidone [2] Past Medical History: Diagnosis Date Anemia Disease of thyroid gland [3] No past surgical history on file. [4] No family history on file. [5] Social History Tobacco Use Smoking Status Never Smokeless Tobacco Never [6] ascorbic acid, 250 mg, oral, Daily buprenorphine, 0.15 mg, intravenous, BID [START ON 07/06/2025] buprenorphine, 0.3 mg, intravenous, BID [START ON 07/07/2025] buprenorphine-naloxone, 1 tablet, sublingual, BID cloNIDine, 0.1 mg, oral, q8h [facility]EN[facility] docusate sodium, 100 mg, oral, BID enoxaparin, 40 mg, subcutaneous, q24h YESENIA ferrous sulfate, 325 mg, oral, BID gabapentin, 100 mg, oral, q8h [facility] hydrOXYzine pamoate, 25 mg, oral, Once [START ON 07/08/2025] methadone, 10 mg, oral, Daily [START ON 07/07/2025] methadone, 20 mg, oral, Daily [START ON 07/06/2025] methadone, 30 mg, oral, Daily sodium chloride, 10 mL, intravenous, BID vancomycin, 1,000 mg, intravenous, q12h [7] [8] PRN medications: acetaminophen, HYDROmorphone, HYDROmorphone, LORazepam, ondansetron (ZOFRAN-ODT) disintegrating tablet OR ondansetron, prochlorperazine OR prochlorperazine OR prochlorperazine, Insert peripheral IV AND Maintain IV access AND Saline lock IV AND sodium chloride AND sodium chloride, sodium chloride, zolpidem Cosigned by Micheline Shah DO at 07/08/2025 10:47 AM EST * Adonis Mckeon - 07/05/2025 12:41 PM EDT Provisioning Specialist Note I met with the pt in her room. She was sitting in bed eating breakfast. She was visibly upset, as she was crying. We had the chance to talk about her current situation and also her ALDAIR. We had the ability to talk about cause and effect and how not completing her treatment would bring her process back to the beginning, maybe even get worse. We talked about her family and how she takes care of her young child who has special needs. Her primary concern is that the caretaker grounds for her child will not be able to keep up with the demands of taking care of a child with special needs. We also talked in-depth about her ALDAIR and her goals. She stated she feels she is also addicted to the ritual of prepa ring and administering the substances. I was able to provide her with some clothes from the closet.I will continue to follow up and support the pt while in our care. Adonis Mckeon Certified Provisioning Specialist [address] [place] [id number] Provisioning Specialist Office [address] [place] [id number] Medical Office - Provisioning Specialist Office - Addiction Office Rm 304 [email or web address] * VITALIY Rodríguez - 07/05/2025 10:38 AM EDT Images from the original note were not included. BERRY PROGRESS NOTE Date: 07/05/2025 Author: VITALIY Rodríguez Patient ID: Kathy Ballard is a 50 y.o. female : 1975 MR#: [id number] SUBJECTIVE Subjective Patient reporting anxiety this morning. Initially seen after prolonged period of patient in the bathroom. RN reports that she is refusing Buprenex but also not wanting to take methadone. Patient was given low-dose Ativan. Despite blood transfusion patient's hemoglobin dropped again. She denies any dizziness with walking. There is no chest discomfort or shortness of breath. She denies any bruising. There is been no epistaxis, gingival bleeding or melena. Patient has not had a bowel movement. Patient reporting this morning that she is concerned about maybe having a yeast infection. She endorsed vaginal discharge and some mild dysuria. Allergies Hydroxyzine, Benadryl allergy decongestant, and Risperidone Current Medications: MEDSSCHEDULED[1] MEDSCONTINUOUS[2] MEDSPRN[3] OBJECTIVE Vitals: 07/04/25 1938 07/04/25 2104 07/05/25 0212 07/05/25 0751 BP: 112/80 (!) 114/90 111/83 117/89 BP Location: Right arm Right arm Right arm Patient Position: Lying Lying Sitting Pulse: 103 94 92 89 Resp: 18 17 18 Temp: 37.2 ??C (99 ??F) 36.7 ??C (98.1 ??F) 36.9 ??C (98.4 ??F) TempSrc: Oral Oral Oral SpO2: 100% 100% 94% 100% Weight: Height: Physical Exam Constitutional: Appearance: Normal appearance. HENT: Head: Normocephalic and atraumatic. Mouth/Throat: Mouth: Mucous membranes are moist. Eyes: Extraocular Movements: Extraocular movements intact. Conjunctiva/sclera: Conjunctivae normal. Pupils: Pupils are equal, round, and reactive to light. Cardiovascular: Rate and Rhythm: Normal rate and regular rhythm. Heart sounds: Normal heart sounds. Pulmonary: Effort: Pulmonary effort is normal. Breath sounds: Normal breath sounds. No wheezing, rhonchi or rales. Abdominal: General: Bowel sounds are normal. There is no distension. Palpations: Abdomen is soft. There is no mass. Tenderness: There is no abdominal tenderness. There is no guarding. Musculoskeletal: General: Normal range of motion. Cervical back: Normal range of motion. Comments: Point tenderness in the sacral SI region. No bruising noted or deformities Skin: General: Skin is warm and dry. Neurological: General: No focal deficit present. Mental Status: She is alert and oriented to person, place, and time. Psychiatric: Mood and Affect: Mood normal. Behavior: Behavior normal. LABS HEMATOLOGY Lab Results Component Value Date WBC 5.9 07/05/2025 HGB 7.6 (L) 07/05/2025 HCT 27.0 (L) 07/05/2025 MCV 71.8 (L) 07/05/2025 PLT 440 (H) 07/05/2025 CHEMISTRY Lab Results Component Value Date GLUCOSE 121 (H) 07/05/2025 NA 137 07/05/2025 K 4.4 07/05/2025 CO2 25 07/05/2025 CL 105 07/05/2025 BUN 19 07/05/2025 CREATININE 0.88 07/05/2025 EGFR 81 07/05/2025 CALCIUM 8.9 07/05/2025 MG 2.4 07/05/2025 ANIONGAP 7 07/05/2025 Imaging: MR Lumbar Spine wo and w Contrast Narrative: INDICATION: hx of IVDA, r/o spinal epidural abscess MR lumbar spine with and without gadolinium Comparison: DX/CO/SR - XR L SPINE 2 3 VW - 06/30/25 08:53 EDT Findings: 5 lumbar type vertebral bodies are present by plain film. Alignment is normal. No acute fracture. There is moderate ill-defined STIR signal elevation and enhancement within the left inferior L4 and left superior L5 articulating facets. There is a peripherally enhancing moderate left L4-L5 facet joint effusion. Cauda equina and conus medullaris within normal limits. No epidural abscess. Mildly prominent retroperitoneal lymph nodes. Moderate ill-defined STIR signal elevation and enhancement within the left posterior paraspinous soft tissues at L4-L5. L1-L2: No significant canal nor foraminal stenosis. L2-L3:No significant canal nor foraminal stenosis. L3-L4:Mild facet and ligamentum flavum hypertrophy. Mild epidural lipomatosis. Mild canal stenosis. Mild bilateral foraminal stenosis. L4-L5: Mild disc desiccation and diffuse disc bulge. Mild bilateral facet hypertrophy. Mild canal stenosis. Moderate bilateral foraminal stenosis. L5-S1:Mild disc desiccation and diffuse disc bulge with superimposed left paracentral protrusion. Mild bilateral facet hypertrophy. Mild canal stenosis. Mild bilateral foraminal stenosis. Mild posterior deviation of the left S1 nerve root within the lateral recess. Impression: 1. Findings suggestive of septic arthritis involving the left L4-L5 facet joint with surrounding cellulitis. 2. Multilevel degenerative disc and facet disease, as well as ligamentum flavum hypertrophy. 3. Mild multilevel canal stenoses. 4. Multilevel mild and moderate foraminal stenoses. 5. Posterior deviation of the left S1 nerve root within the lateral recess at L5-S1. Correlation with clinical symptoms is recommended to assess relevance of this finding. This document has been electronically signed by: Rebeka Rawls MD on 07/01/2025 18:21:56 Transthoracic echocardiogram (TTE) complete with PRN contrast, bubble, strain, and 3D order panel Left ventricle cavity size is normal. Left ventricular systolic function is in the normal range with an ejection fraction of 55-60%. Right ventricle cavity is normal. Right ventricular systolic function is normal. No hemodynamic significant valvular abnormalities. No gross vegetation. Trivial pericardial effusion. ASSESSMENT & PLAN 49-year-old female with a history of IV drug use, OUD maintained on methadone, acute worsening of chronic back pain, anemia of chronic disease and thyroid disease presents with low back pain in the setting of MRSA bacteremia. MRSA bacteremia Numerous skin ulcerations In the setting of known IV drug use and numerous skin ulcerations and open sores. Follow-up cultures from 07/03 w MRSA despite treatment with IV vancomycin. Troph is appropriate. Pt may need SEFERINO. Septic arthritis of the L4/5 with surrounding cellulitis - Appreciate neurosurgery input. No surgical intervention required at this time since pathogen is known and neuroexam is intact. They recommend office follow-up in 6 weeks. A small left central L5-S1disc herniation was also noted. Treat underlying cause with IV antibiotics. Added gabapentin for radiculopathy- patient is refusing this. Polysubstance abuse with withdrawal IVDU - Patient is on a tapering dose of methadone and scheduled Buprenex but refusing both this morning.Only allowing IV hydromorphone -Continue as needed analgesic, antipyretics and anxiety medication - Addiction medicine follow-up today. Patient was seen by psychiatry in follow- up. Psychiatry reports patient did not wish to initiate any new medications and felt the patient may be drug-seeking. Severe iron deficiency anemia - Patient reports she has not had menstruation in over a year. She reports chronic constipation having a bowel movement approximately once every few weeks when she does there is bright red blood. Shethinks she may have hemorrhoids. - Anemia panel consistent with iron deficiency and low vitamin B12 stores as well - Rectal exam negative per ED provider - Despite 2 units of blood patient once again has dropped her hemoglobin to 7.6 haptoglobin is elevated not consistent with hemolysis. I will ask hematology to weigh in. Thyroid disease? Reported in H&P. TSH was within normal limits History of major depressive disorder Last hospitalized in 2019 at [facility]. She is currently not on any treatment. Repeatpsychiatric evaluation today. Vaginal discharge Obtain urine culture for GC chlamydia. Patient concerned about a yeast infection. Hepatitis C Viral load returns quantitative over 800,000. HIV was negative. Await infectious disease input DAILY CARE CHECKLIST Length of Stay: 02d 13h 41m VTE Prophylaxis: Add Lovenox Resuscitation: Full Code - Default PCP: Pcp Unknown Physician Disposition/patient need hospital stay because : Acutely ill Health care proxy with phone number : Case discussed with attending & neurosurgery [1] ascorbic acid, 250 mg, oral, Daily buprenorphine, 0.15 mg, intravenous, BID [START ON 07/06/2025] buprenorphine, 0.3 mg, intravenous, BID [START ON 07/07/2025] buprenorphine-naloxone, 1 tablet, sublingual, BID cloNIDine, 0.1 mg, oral, q8h [facility] docusate sodium, 100 mg, oral, BID enoxaparin, 40 mg, subcutaneous, q24h YESENIA ferrous sulfate, 325 mg, oral, BID gabapentin, 100 mg, oral, q8h [facility] hydrOXYzine pamoate, 25 mg, oral, Once [START ON 07/06/2025] methadone, 30 mg, oral, Daily sodium chloride, 10 mL, intravenous, BID vancomycin, 1,000 mg, intravenous, q12h [2] [3] PRN medications: acetaminophen, HYDROmorphone, HYDROmorphone, LORazepam, ondansetron (ZOFRAN-ODT) disintegrating tablet OR ondansetron, prochlorperazine OR prochlorperazine OR prochlorperazine, Insert peripheral IV AND Maintain IV access AND Saline lock IV AND sodium chloride AND sodium chloride, sodium chloride, zolpidem Cosigned by Suzette Alexandre MD at 07/05/2025 2:50 PM EDT * Debra Amaya RN - 07/05/2025 3:47 AM EDT Goals: Identify possible barriers to meeting goals/advancing plan of care: pain management, IV abx Stability of the patient: Moderately Stable - Low risk of patient condition declining or worsening End of Shift Summary: Pt calm and cooperative during care. Pt expresses multiple reports of pain throughout shift, prn pain medication administered per MAR with moderate relief reported by pt. Independent to BR. VSS. Pt states she is currently experiencing vaginal itchiness, sense of incomplete voiding, and thick discharge, states, whenever I get antibiotics, I always get a yeast infection. Expresses no further questions or concerns at this time. Pt in bed at lowest locked position with call villalpando within reach, rings appropriately. Care continues. * ERIKA Rahman - 07/04/2025 4:50 PM EDT Case management intake: 07/04/25 1632 Initial Transition Plan Initial Transition Plan Snf Facility (Defer referrals until final ID recommendations and medication management for OUD) Back up Transition Plan Back up Transition plan Transport Pilot Acute Care Discharge Planning Contact (Name, Phone #, Relationship) for DC Planning Daughter Jossie Fung [phone] Living Arrangements Parent (Erica is the primary caretaker grounds for her mother) Type of Residence Private residence (One level home with 2 RUDDY) Assistive Devices None Support Systems Parent Medication Coverage Has Med Coverage Under Insurance Plan Yes Medication Affordability No concerns related to payment for meds Anticipated Discharge Needs Discipline following for SNF placement Anodic Treater Informed Choice Informed Choice Given? Yes Discharge Barriers Barriers to Discharge Plan Medically complex placement (IV ABT, cultures, med management for OUD, wound care, multiple disciplines following) JORGITO: 07/09/25 Patient confirmed demographics and information. She does have a PCP and is not a . We discussed that she may need to go to SNF or LTACH for continued IV ABT. She was upset although was open to conversation. She was open to being placed locally, as her main concern is being a caretaker grounds for her mother and she is close with her children. Erica stated that she would rather go home and be at risk for than be moved far from her family. I encouraged her to rethink that decision asit would be more beneficial to continue her medical treatment to be present for everyone that relies on her. We discussed referrals being placed following final recommendations from ID physician and stability on opioid treatment. She voiced understanding and was appreciative of this typewriter assembly and parts inspector's visit. Case management web content & social media manager will remain available to assess, support, and provide advocacy in discharge planning as appropriate. * Micheline Shah DO - 07/04/2025 2:51 PM EDT Images from the original note were not included. Kathy Ballard 1975 [id number] Author: Micheline Shah DO DOS: 07/04/2025 Requesting Service: Hospitalist Service Chief Complaint: Septic arthritis of lumbar spine (CMS/HCC V24) Reason for Consultation: Opioid use disorder and Cocaine use disorder Source of History: Patient and chart Subjective History of Present Illness: Kathy Ballard is a 50 y.o. female with a history of opioid use disorder re- admitted for septic arthritis of lumbar spine. Patient is known to our service from previous admission on 06/30 for same with self directed discharge on 07/02. She states she woke up not knowing thinking she was at home which made her feel anxious. Patient states that she does not want to be on methadone. She was given information on buprenorphine to review which she is agreeable to trying. Allergies: Allergies[1] Home Medications: Prior to Admission medications Not on File Past Medical History: Medical History[2] Past Surgical History: Surgical History[3] Family History: Family History[4] Social History: Tobacco Use History[5] Social History Substance and Sexual Activity Alcohol Use None Social History Substance and Sexual Activity Drug Use Not on file Objective ROS: as above Last Recorded Vitals: Blood pressure 129/86, pulse 87, temperature 37.1 ??C (98.8 ??F), temperature source Oral, resp. rate 18, height 1.524 m (60 ), weight 54.1 kg (119 lb 3.2 oz), SpO2 100%. Physical Exam Gen: NAD HEENT: pupils normal, OP clear Skin: +multiple scars, +bilateral UE dressings in place Neuro: Alert and oriented, No tremor Pysch: Mood and affect normal Labs: Lab Results Component Value Date GLUCOSE 116 (H) 07/04/2025 CALCIUM 9.0 07/04/2025 NA 138 07/04/2025 K 3.9 07/04/2025 CO2 27 07/04/2025 CL 106 07/04/2025 BUN 11 07/04/2025 CREATININE 0.76 07/04/2025 Lab Results Component Value Date WBC 5.3 07/04/2025 HGB 9.1 (L) 07/04/2025 HCT 30.3 (L) 07/04/2025 MCV 69.8 (L) 07/04/2025 PLT 452 (H) 07/04/2025 Imaging: MR Lumbar Spine wo and w Contrast Narrative: INDICATION: hx of IVDA, r/o spinal epidural abscess MR lumbar spine with and without gadolinium Comparison: DX/CO/SR - XR L SPINE 2 3 VW - 06/30/25 08:53 EDT Findings: 5 lumbar type vertebral bodies are present by plain film. Alignment is normal. No acute fracture. There is moderate ill-defined STIR signal elevation and enhancement within the left inferior L4 and left superior L5 articulating facets. There is a peripherally enhancing moderate left L4-L5 facet joint effusion. Cauda equina and conus medullaris within normal limits. No epidural abscess. Mildly prominent retroperitoneal lymph nodes. Moderate ill-defined STIR signal elevation and enhancement within the left posterior paraspinous soft tissues at L4-L5. L1-L2: No significant canal nor foraminal stenosis. L2-L3:No significant canal nor foraminal stenosis. L3-L4:Mild facet and ligamentum flavum hypertrophy. Mild epidural lipomatosis. Mild canal stenosis. Mild bilateral foraminal stenosis. L4-L5: Mild disc desiccation and diffuse disc bulge. Mild bilateral facet hypertrophy. Mild canal stenosis. Moderate bilateral foraminal stenosis. L5-S1:Mild disc desiccation and diffuse disc bulge with superimposed left paracentral protrusion. Mild bilateral facet hypertrophy. Mild canal stenosis. Mild bilateral foraminal stenosis. Mild posterior deviation of the left S1 nerve root within the lateral recess. Impression: 1. Findings suggestive of septic arthritis involving the left L4-L5 facet joint with surrounding cellulitis. 2. Multilevel degenerative disc and facet disease, as well as ligamentum flavum hypertrophy. 3. Mild multilevel canal stenoses. 4. Multilevel mild and moderate foraminal stenoses. 5. Posterior deviation of the left S1 nerve root within the lateral recess at L5-S1. Correlation with clinical symptoms is recommended to assess relevance of this finding. This document has been electronically signed by: Rebeka Rawls MD on 07/01/2025 18:21:56 Transthoracic echocardiogram (TTE) complete with PRN contrast, bubble, strain, and 3D order panel Left ventricle cavity size is normal. Left ventricular systolic function is in the normal range with an ejection fraction of 55-60%. Right ventricle cavity is normal. Right ventricular systolic function is normal. No hemodynamic significant valvular abnormalities. No gross vegetation. Trivial pericardial effusion. Meds: MEDSSCHEDULED[6] MEDSCONTINUOUS[7] MEDSPRN[8] Assessment and Plan Kathy Ballard is a 50 y.o. female with a history of opioid use disorder admitted for septic arthritis of lumbar spine. Opioid Use Disorder Patient previously on methadone through [facility] but discontinued dosing 06/10 Patient last received 50 mg methadone on 07/04 but is clear she does not want to continue methadone Reviewed risks of untreated OUD including fatal overdose and presented information on buprenorphine. Discussed risks and benefits and answered questions. Patient agreeable to inpatient buprenorphine initiation Start very low dose buprenorphine initiation Day 1: 0.15 mg IV once Day 2: 0.15 mg IV BID Day 3: 0.3 mg IV once Day 4: 0.3 mg IV BID Then transition to SL form -may be candidate for weekly Brixadi Start tapering methadone as cross initiation with bup Continue treating pain with short acting opioids Avoid BENCH INSPECTOR depressant medications that may increase risk of overdose Will continue to follow to review options for treatment and offer support Patient would benefit from harm reduction counseling and supplies including fentanyl test strips and Narcan Team will continue to follow and engage with patient. Cocaine use Counseled risk of cocaine including cardiac arrhythmias, stroke, fentanyl contamination and risk ofoverdose Patient may benefit from harm reduction supplies including fentanyl test strips and Narcan prior todischarge Thank you for the interesting consultation. Please reach out with any questions or concerns. Principal Problem: Septic arthritis of lumbar spine ([facility] V24) Provider Attestation Electronically signed by Micheline Shah DO [1] Allergies Allergen Reactions Hydroxyzine Angioedema Benadryl Allergy Decongestant Risperidone [2] Past Medical History: Diagnosis Date Anemia Disease of thyroid gland [3] No past surgical history on file. [4] No family history on file. [5] Social History Tobacco Use Smoking Status Never Smokeless Tobacco Never [6] ascorbic acid, 250 mg, oral, Daily [START ON 07/05/2025] buprenorphine, 0.15 mg, intravenous, BID [START ON 07/06/2025] buprenorphine, 0.3 mg, intravenous, BID [START ON 07/07/2025] buprenorphine-naloxone, 1 tablet, sublingual, BID cloNIDine, 0.1 mg, oral, q8h YESENIA cyanocobalamin, 1,000 mcg, intramuscular, Daily docusate sodium, 100 mg, oral, BID enoxaparin, 40 mg, subcutaneous, q24h YESENIA ferrous sulfate, 325 mg, oral, BID gabapentin, 100 mg, oral, q8h YESENIA hydrOXYzine pamoate, 25 mg, oral, Once [START ON 07/06/2025] methadone, 30 mg, oral, Daily [START ON 07/05/2025] methadone, 40 mg, oral, Daily vancomycin, 1,000 mg, intravenous, q12h [7] [8] PRN medications: HYDROmorphone, HYDROmorphone, LORazepam, sodium chloride, zolpidem * Julianna Orozco MD - 07/04/2025 2:45 PM EDT Kathy Ballard is here for { Back Pain (Left AMA this morning- admitted for Septic arthritis of L4-L5 with surrounding cellulitis) Subjective Feels better, anxious however tolerating antibiotics, told her about her positive hep C screening Review of Systems Review of Systems Constitutional: Negative. HENT: Negative. Respiratory: Negative. Cardiovascular: Negative. Gastrointestinal: Negative. Genitourinary: Negative. Musculoskeletal: Positive for back pain. Skin: Negative. Psychiatric/Behavioral: The patient is nervous/anxious. Physical Examination: Vitals: Visit Vitals BP 118/76 (BP Location: Right arm;Upper, Patient Position: Lying) Pulse 87 Temp 37.1 ??C (98.8 ??F) (Oral) Resp 18 Physical Exam Vitals reviewed. Constitutional: Appearance: Normal appearance. HENT: Head: Normocephalic and atraumatic. Eyes: General: No scleral icterus. Cardiovascular: Rate and Rhythm: Normal rate and regular rhythm. Heart sounds: No murmur heard. No friction rub. No gallop. Pulmonary: Effort: No respiratory distress. Breath sounds: No stridor. No wheezing or rhonchi. Abdominal: General: There is no distension. Tenderness: There is no abdominal tenderness. There is no guarding or rebound. Musculoskeletal: General: No swelling or tenderness. Skin: Coloration: Skin is not jaundiced or pale. Neurological: General: No focal deficit present. Mental Status: She is alert and oriented to person, place, and time. Objective Recent Lab Results: Lab Results Component Value Date WBC 5.3 07/04/2025 RBC 4.30 07/04/2025 HGB 9.1 (L) 07/04/2025 HCT 30.3 (L) 07/04/2025 MCV 69.8 (L) 07/04/2025 MCHC 30.0 (L) 07/04/2025 RDW 19.9 (H) 07/04/2025 PLT 452 (H) 07/04/2025 MPV 8.9 07/04/2025 NRBC 0.0 07/04/2025 DIFF Lab Results Component Value Date LYMPHOPCT 25.4 07/04/2025 NEUTROABS 3.38 07/04/2025 LYMPHSABS 1.34 07/04/2025 MONOABS 0.38 07/04/2025 EOSABS 0.12 07/04/2025 BASOSABS 0.03 07/04/2025 IMMGRANABS 0.02 07/04/2025 RETIC No results found for: RETIC , RETICCTPCT Lab Results Component Value Date BLOODCX Culture in progress 2025 BLOODCX Culture in progress 2025 URINECX No growth 07/01/2025 Recent Results (from the past week) Blood Culture, Peripheral Draw #2 Collection Time: 06/30/25 7:46 AM Specimen: Blood, Venous Result Value Ref Range Culture, Blood Methicillin-Resistant Staphylococcus aureus (AA) Gram Stain Result Anaerobic bottle Gram positive cocci in clusters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 Basophils Relative 07/02/2025 0.7 % Final Immature Granulocytes Relative 07/02/2025 0.3 % Final Neutrophils Absolute 07/02/2025 4.98 1.50 - 7.00 K/mcL Final Lymphocytes Absolute 07/02/2025 1.82 1.00 - 5.00 K/mcL Final Monocytes Absolute 07/02/2025 0.42 0.20 - 1.00 K/mcL Final Eosinophils Absolute 07/02/2025 0.04 0.00 - 0.50 K/mcL Final Basophils Absolute 07/02/2025 0.05 0.00 - 0.20 K/mcL Final Immature Granulocytes Absolute 07/02/2025 0.02 0.00 - 0.03 K/mcL Final C-Reactive Protein 07/02/2025 2.10 (H) <=0.50 mg/dL Final Product Code 07/02/2025 [id number] Final Unit Number 07/02/2025 [id number] Final Crossmatch 07/02/2025 Compatible Final Dispense Status 07/02/2025 Transfused Final Unit ABO Rh 07/02/2025 APOS Final Unit Expiration Date Time 07/02/[id number] Final Unit Blood Type 07/02/2025 6200 Final Sodium 2025 141 133 - 145 mmol/L Final Potassium 2025 4.1 3.5 - 5.5 mmol/L Final Chloride 2025 109 96 - 110 mmol/L Final CO2 2025 28 21 - 32 mmol/L Final Anion Gap 2025 4 3 - 11 Final Glucose 2025 90 70 - 100 mg/dL Final BUN 2025 21 5 - 25 mg/dL Final Creatinine 2025 0.85 0.50 - 1.10 mg/dL Final eGFR 2025 85 >=60 mL/min/1.73m2 Final Calculation based on the Chronic Kidney Disease Epidemiology Collaboration (CKD- EPI) equation refitwithout adjustment for race. BUN/Creatinine Ratio 2025 24.7 Final Calcium 2025 8.0 (L) 8.5 - 10.5 mg/dL Final Magnesium 2025 2.4 1.9 - 2.6 mg/dL Final WBC 2025 5.0 4.8 - 10.8 K/mcL Final RBC 2025 3.40 (L) 3.80 - 4.80 M/mcL Final Hemoglobin 2025 7.1 (L) 11.5 - 16.0 g/dL Final Hematocrit 2025 24.2 (L) 35.0 - 47.0 % Final MCV 2025 71.0 (L) 79.0 - 98.0 FL Final MCH 2025 20.8 (L) 27.0 - 32.0 pcg Final MCHC 2025 29.3 (L) 32.0 - 37.0 g/dL Final RDW 2025 19.3 (H) 11.0 - 15.0 % Final Platelets 2025 451 (H) 130 - 400 K/mcL Final MPV 2025 9.5 7.0 - 11.0 FL Final NRBC 2025 0.0 <1.0 % Final NRBC Absolute 2025 0.00 <0.10 K/mcL Final Neutrophils Relative 2025 56.6 % Final Lymphocytes Relative 2025 32.1 % Final Monocytes Relative 2025 8.5 % Final Eosinophils Relative 2025 1.8 % Final Basophils Relative 2025 0.8 % Final Immature Granulocytes Relative 2025 0.2 % Final Neutrophils Absolute 2025 2.81 1.50 - 7.00 K/mcL Final Lymphocytes Absolute 2025 1.59 1.00 - 5.00 K/mcL Final Monocytes Absolute 2025 0.42 0.20 - 1.00 K/mcL Final Eosinophils Absolute 2025 0.09 0.00 - 0.50 K/mcL Final Basophils Absolute 2025 0.04 0.00 - 0.20 K/mcL Final Immature Granulocytes Absolute 2025 0.01 0.00 - 0.03 K/mcL Final Culture, Blood 2025 Culture in progress Preliminary Culture, Blood 2025 Culture in progress Preliminary HIV Combo AB/AG 2025 Negative Negative Final Hepatitis C Antibody 2025 Positive (A) Negative Final If confirmation of this positive HCV Ab screening test is needed, please redraw and order HCV ViralLoad. Note--> This test may not be added on due to different specimen requirements. Hepatitis B Surface Ag 2025 Negative Negative Final ALT (SGPT) 2025 8 (L) 10 - 60 unit/L Final AST (SGOT) 2025 12 10 - 42 unit/L Final Bilirubin, Direct 2025 <0.1 0.0 - 0.3 mg/dL Final Total Bilirubin 2025 0.2 0.0 - 1.4 mg/dL Final Platelets 2025 451 K/mcL Final Sodium 07/04/2025 138 133 - 145 mmol/L Final Potassium 07/04/2025 3.9 3.5 - 5.5 mmol/L Final Chloride 07/04/2025 106 96 - 110 mmol/L Final CO2 07/04/2025 27 21 - 32 mmol/L Final Anion Gap 07/04/2025 5 3 - 11 Final Glucose 07/04/2025 116 (H) 70 - 100 mg/dL Final BUN 07/04/2025 11 5 - 25 mg/dL Final Creatinine 07/04/2025 0.76 0.50 - 1.10 mg/dL Final eGFR 07/04/2025 97 >=60 mL/min/1.73m2 Final Calculation based on the Chronic Kidney Disease Epidemiology Collaboration (CKD- EPI) equation refitwithout adjustment for race. BUN/Creatinine Ratio 07/04/2025 14.5 Final Calcium 07/04/2025 9.0 8.5 - 10.5 mg/dL Final Magnesium 07/04/2025 2.3 1.9 - 2.6 mg/dL Final WBC 07/04/2025 5.3 4.8 - 10.8 K/mcL Final RBC 07/04/2025 4.30 3.80 - 4.80 M/mcL Final Hemoglobin 07/04/2025 9.1 (L) 11.5 - 16.0 g/dL Final Hematocrit 07/04/2025 30.3 (L) 35.0 - 47.0 % Final MCV 07/04/2025 69.8 (L) 79.0 - 98.0 FL Final MCH 07/04/2025 21.0 (L) 27.0 - 32.0 pcg Final MCHC 07/04/2025 30.0 (L) 32.0 - 37.0 g/dL Final RDW 07/04/2025 19.9 (H) 11.0 - 15.0 % Final Platelets 07/04/2025 452 (H) 130 - 400 K/mcL Final MPV 07/04/2025 8.9 7.0 - 11.0 FL Final NRBC 07/04/2025 0.0 <1.0 % Final NRBC Absolute 07/04/2025 0.00 <0.10 K/mcL Final Neutrophils Relative 07/04/2025 64.1 % Final Lymphocytes Relative 07/04/2025 25.4 % Final Monocytes Relative 07/04/2025 7.2 % Final Eosinophils Relative 07/04/2025 2.3 % Final Basophils Relative 07/04/2025 0.6 % Final Immature Granulocytes Relative 07/04/2025 0.4 % Final Neutrophils Absolute 07/04/2025 3.38 1.50 - 7.00 K/mcL Final Lymphocytes Absolute 07/04/2025 1.34 1.00 - 5.00 K/mcL Final Monocytes Absolute 07/04/2025 0.38 0.20 - 1.00 K/mcL Final Eosinophils Absolute 07/04/2025 0.12 0.00 - 0.50 K/mcL Final Basophils Absolute 07/04/2025 0.03 0.00 - 0.20 K/mcL Final Immature Granulocytes Absolute 07/04/2025 0.02 0.00 - 0.03 K/mcL Final Vancomycin Trough 07/04/2025 18.3 10.0 - 20.0 mcg/mL Final No results displayed because visit has over 200 results. VITALS: BP: 118/76 (07/04 911) Heart Rate: 93 (07/04 911) Temp: 37 ??C (98.6 ??F) (07/04 911) Temp Source: Oral (07/04 911) SpO2: 100 % (07/04 911) ASSESSMENT: Kathy Ballard is a 50 y.o. female with psychiatric history significant for polysubstance abuse and medical history significant for but not limited to anemia and thyroid disease who was admitted for acute on chronic back pain and skin infection. Per chart review, the patient left AMA and then quickly returned to the hospital with worsening symptoms. Psychiatry was consulted for anxiety. DSM-5 DIAGNOSIS: Depressive disorder, unspecified Anxiety disorder, unspecified Polysubstance abuse Anemia and thyroid disease TREATMENT PLAN: Pt has verbalized understanding and given consent/agreement with medications and plan offered. LEVEL OF CARE: Continue current level of treatment. RECOMMENDATIONS: The patient declines all offers for first-line treatments for anxiety. The [facility] declined to increaseher dosage of Ativan or to try to find something stronger. Discussed with admitting provider. Methadone management per addition team. Recommend patient to get linked with an outpatient psychiatrist and therapist upon discharge. Psychiatry will sign off again. Please reconsult with any additional questions or concerns. LABS: Reviewed and discussed most recent labs results. SAFETY PLAN: Patient is to alert team if symptoms worsen. Team will monitor for development of suicidal ideations or an acute medication reaction. - Call 911 or present to nearest Emergency Room in case of crisis / suicidal thoughts upon discharge. EDUCATION/CONSENT: Discussed and explained all diagnoses including differential diagnosis and treatment options. Discussed risks, benefits, potential side effects, contraindications, potential drug-drug interactions, alternatives to current medications and medication allergies as noted above. Discussed continuing to monitor for side effects and treatment efficacy prospectively and delineated patient's involvement and responsibility in monitoring for side effects and efficacy. Vitaliy méndez expressed understanding of these recommendations. BARRIERS TO LEARNING: Patient demonstrates a readiness to learn. Patient verbalizes understanding and agrees to plan. No barriers to communication noted. MEDICATION RECONCILIATION: Medications were reviewed and reconciled with the patient. PREVENTATIVE RECOMMENDATIONS: Preventative Health Education Counseling: discussed proper diet/nutrition, exercise, and sleep hygiene. The patient was encouraged to avoid nicotine, alcohol and illicitdrugs at all times. The patient was made aware that records from the [facility] can be sent to his/her PCP at any time that he/she requests. [1] Past Medical History: Diagnosis Date Anemia Disease of thyroid gland [2] ascorbic acid, 250 mg, oral, Daily cloNIDine, 0.1 mg, oral, q8h YESENIA cyanocobalamin, 1,000 mcg, intramuscular, Daily docusate sodium, 100 mg, oral, BID enoxaparin, 40 mg, subcutaneous, q24h YESENIA ferrous sulfate, 325 mg, oral, BID gabapentin, 100 mg, oral, q8h YESENIA hydrOXYzine pamoate, 25 mg, oral, Once methadone, 40 mg, oral, Daily And methadone, 10 mg, oral, Daily vancomycin, 1,000 mg, intravenous, q12h [3] Allergies Allergen Reactions Hydroxyzine Angioedema Benadryl Allergy Decongestant Risperidone * Adonis Mike - 2025 1:12 PM EDT Provisioning Specialist Note I met with the pt in her room. She was laying in bed, visibly upset. In asking if she was okay and if she wanted to talk, she stated that she just found out that she will need to go to another facility for snf IV antibiotics. 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 Through motivational interviewing and active listening we talked about how self-care is important and if we don't take care of ourselves, our bodies will do it for us. She then received a phone call and ask I come back tomorrow. I will follow up. Adonis Mckeon Certified Provisioning Specialist [address] [place] [id number] Provision[facility] Specialist Office [address] [place] [address] - Provisioning Specialist Office - Addiction Office Rm [id number] [email or web address] * VITALIY Rodríguez - 2025 11:56 AM EDT Images from the original note were not included. BERRY PROGRESS NOTE Date: 2025 Author: VITALIY Rodríguez Patient ID: Kathy Ballard is a 50 y.o. female : 1975 MR#: [id number] SUBJECTIVE Subjective Patient left AMA yesterday and returned within several hours due to ongoing back pain. She reports that she left because she was feeling anxious. This morning she is bright-eyed. She does endorse thelow back pain with right lower extremity radiation with numbness and tingling. She reports that shedoes think she has hemorrhoids and notes bright red blood per rectum but does not vomit any blood. Patient endorses chills overnight but no documented fever. No night sweats. Appetite intact. She is also requesting a higher dose of Ambien reporting that she has been on 10 mg for quite some time. Allergies Hydroxyzine, Benadryl allergy decongestant, and Risperidone Current Medications: MEDSSCHEDULED[1] MEDSCONTINUOUS[2] MEDSPRN[3] OBJECTIVE Vitals: 07/03/25 0652 07/03/25 0809 07/03/25 0945 07/03/25 1130 BP: 115/73 112/84 106/80 118/85 BP Location: Right arm Patient Position: Sitting Pulse: 85 81 76 89 Resp: 18 Temp: 36.7 ??C (98.1 ??F) 36.9 ??C (98.4 ??F) TempSrc: Temporal SpO2: 100% 99% Weight: Height: Physical Exam Constitutional: Appearance: Normal appearance. HENT: Head: Normocephalic and atraumatic. Mouth/Throat: Mouth: Mucous membranes are moist. Eyes: Extraocular Movements: Extraocular movements intact. Conjunctiva/sclera: Conjunctivae normal. Pupils: Pupils are equal, round, and reactive to light. Cardiovascular: Rate and Rhythm: Normal rate and regular rhythm. Heart sounds: Normal heart sounds. Pulmonary: Effort: Pulmonary effort is normal. Breath sounds: Normal breath sounds. No wheezing, rhonchi or rales. Abdominal: General: Bowel sounds are normal. There is no distension. Palpations: Abdomen is soft. There is no mass. Tenderness: There is no abdominal tenderness. There is no guarding. Musculoskeletal: General: Normal range of motion. Cervical back: Normal range of motion. Comments: Point tenderness in the sacral SI region. No bruising noted or deformities Skin: General: Skin is warm and dry. Comments: Numerous skin ulcerations with surrounding erythema. Please see wound care note from 07/01/25 Neurological: General: No focal deficit present. Mental Status: She is alert and oriented to person, place, and time. Psychiatric: Mood and Affect: Mood normal. Behavior: Behavior normal. Comments: Minimally cooperative LABS HEMATOLOGY Lab Results Component Value Date WBC 5.0 2025 HGB 7.1 (L) 2025 HCT 24.2 (L) 2025 MCV 71.0 (L) 2025 PLT 451 (H) 2025 CHEMISTRY Lab Results Component Value Date GLUCOSE 90 2025 NA 141 2025 K 4.1 2025 CO2 28 2025 CL 109 2025 BUN 21 2025 CREATININE 0.85 2025 EGFR 85 2025 CALCIUM 8.0 (L) 2025 MG 2.4 2025 ANIONGAP 4 2025 Imaging: MR Lumbar Spine wo and w Contrast Narrative: INDICATION: hx of IVDA, r/o spinal epidural abscess MR lumbar spine with and without gadolinium Comparison: DX/CO/SR - XR L SPINE 2 3 VW - 06/30/25 08:53 EDT Findings: 5 lumbar type vertebral bodies are present by plain film. Alignment is normal. No acute fracture. There is moderate ill-defined STIR signal elevation and enhancement within the left inferior L4 and left superior L5 articulating facets. There is a peripherally enhancing moderate left L4-L5 facet joint effusion. Cauda equina and conus medullaris within normal limits. No epidural abscess. Mildly prominent retroperitoneal lymph nodes. Moderate ill-defined STIR signal elevation and enhancement within the left posterior paraspinous soft tissues at L4-L5. L1-L2: No significant canal nor foraminal stenosis. L2-L3:No significant canal nor foraminal stenosis. L3-L4:Mild facet and ligamentum flavum hypertrophy. Mild epidural lipomatosis. Mild canal stenosis. Mild bilateral foraminal stenosis. L4-L5: Mild disc desiccation and diffuse disc bulge. Mild bilateral facet hypertrophy. Mild canal stenosis. Moderate bilateral foraminal stenosis. L5-S1:Mild disc desiccation and diffuse disc bulge with superimposed left paracentral protrusion. Mild bilateral facet hypertrophy. Mild canal stenosis. Mild bilateral foraminal stenosis. Mild posterior deviation of the left S1 nerve root within the lateral recess. Impression: 1. Findings suggestive of septic arthritis involving the left L4-L5 facet joint with surrounding cellulitis. 2. Multilevel degenerative disc and facet disease, as well as ligamentum flavum hypertrophy. 3. Mild multilevel canal stenoses. 4. Multilevel mild and moderate foraminal stenoses. 5. Posterior deviation of the left S1 nerve root within the lateral recess at L5-S1. Correlation with clinical symptoms is recommended to assess relevance of this finding. This document has been electronically signed by: Rebeka Rawls MD on 07/01/2025 18:21:56 Transthoracic echocardiogram (TTE) complete with PRN contrast, bubble, strain, and 3D order panel Left ventricle cavity size is normal. Left ventricular systolic function is in the normal range with an ejection fraction of 55-60%. Right ventricle cavity is normal. Right ventricular systolic function is normal. No hemodynamic significant valvular abnormalities. No gross vegetation. Trivial pericardial effusion. ASSESSMENT & PLAN 49-year-old female with a history of IV drug use, OUD maintained on methadone, acute worsening of chronic back pain, anemia of chronic disease and thyroid disease presents with low back pain in the setting of MRSA bacteremia. MRSA bacteremia Numerous skin ulcerations In the setting of known IV drug use and numerous skin ulcerations and open sores. Appreciate soft drink powder mixer. Please note her media uploads. Patient to have dressings changed every other day. Follow-up cultures from 07/01 show no growth at 2 days. Continue broad-spectrum IV coverage with vancomycin and Zosyn. Echocardiogram does not reveal any vegetations understanding SEFERINO would be the more appropriate test. Consult infectious disease. low back pain Septic arthritis of the L4/5 with surrounding cellulitis -Treat underlying cause with IV antibiotics. Add gabapentin for radiculopathy. Polysubstance abuse with withdrawal IVDU - Continue methadone 50 mg -Continue as needed analgesic, antipyretics and anxiety medication - Addiction medicine follow-up today. Patient educated that we can assist with anxiety treatment while in-house Severe iron deficiency anemia - Patient reports she has not had menstruation in over a year. She reports chronic constipation having a bowel movement approximately once every few weeks when she does there is bright red blood. Shethinks she may have hemorrhoids. - Anemia panel consistent with iron deficiency and low vitamin B12 stores as well - Rectal exam negative per ED provider - Patient received 1 unit PRBCs on initial admission and a second unit last evening, with improvement of her hemoglobin up to 7.1 today. Avoid IV iron due to active infection. I will start her on oral ferrous sulfate replenishment. Would also recommend vitamin B12 injections. Thyroid disease? Reported in H&P. TSH was within normal limits History of major depressive disorder Last hospitalized in 2019 at [facility]. She is currently not on any treatment. She was evaluated by psychiatry today due to the concern that she did not lack competency to make medical decisions. She has been cleared. 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 Patient does not wish to discuss rodrigo started on any medications. DAILY CARE CHECKLIST Length of Stay: 15h 00m VTE Prophylaxis: Add Lovenox Resuscitation: Full Code - Confirmed PCP: Pcp Unknown Physician Disposition/patient need hospital stay because : Acutely ill Health care proxy with phone number : Case discussed with attending [1] ascorbic acid, 250 mg, oral, Daily cloNIDine, 0.1 mg, oral, q8h YESENIA cyanocobalamin, 1,000 mcg, intramuscular, Daily gabapentin, 100 mg, oral, q8h YESENIA hydrOXYzine pamoate, 25 mg, oral, Once methadone, 40 mg, oral, Daily And methadone, 10 mg, oral, Daily piperacillin-tazobactam, 3.375 g, intravenous, q6h vancomycin, 1,000 mg, intravenous, q12h [2] [3] PRN medications: haloperidol, HYDROmorphone, HYDROmorphone, LORazepam, sodium chloride Cosigned by Suzette Alexandre MD at 2025 2:06 PM EDT Associated attestation - Suzette Alexandre MD - 2025 2:06 PM EDT This is a split/shared visit with VITALIY Rodríguez. I personally performed the medical decision making (MDM) for the care of this patient on 07/03/25 as documented below Patient seen and examined on the date of service, discussed with Gwendolyn BURKS regarding planof care. Agree with assessment and plan as outlined below. Discussed with the patient regarding importance of medication compliance and care. MRSA bacteremia, septic arthritis L4-L5 with surrounding cellulitis. Continue current IV antibiotics with vancomycin and Zosyn. No evidence of vegetation noted on the transthoracic echocardiogram. Awaiting ID consult. Seen by addiction service as well for the polysubstance use, IVDU. Continue with m ethadone for now. Rest of the assessment and plan as detailed below Suzette Alexandre MD 07/03/25 2:05 PM EDT * Gallito Guevara RN - 2025 10:11 AM EDT Goals: Identify possible barriers to meeting goals/advancing plan of care: iv pain meds, trending H&H,iv antibiotics, care ongoing Stability of the patient: Moderately Stable - Low risk of patient condition declining or worsening End of Shift Summary: Problem: Physical Regulation:Infection Management Goal: Signs and symptoms of infection will decrease Outcome: Progressing Goal: Complications related to the disease process, condition or treatment will be avoided or minimized Outcome: Progressing Goal: Diagnostic test results will improve Outcome: Progressing Problem: Cognitive: Anderson [place] Fall Risk Goal: Mobility requiring assistance of person or device Outcome: Progressing Problem: Sensory: Acute Pain Goal: Pain level will improve or be tolerable Outcome: Progressing Goal: Ability to develop a pain control plan will improve Outcome: Progressing Problem: Safety: Substance Use Disorder Goal: Risk of injury will improve Outcome: Progressing Goal: Use of risky behaviors will decrease Outcome: Progressing * Harper White RN - 2025 4:41 AM EDT Problem: Physical Regulation:Infection Management Goal: Signs and symptoms of infection will decrease Outcome: Progressing Goal: Complications related to the disease process, condition or treatment will be avoided or minimized Outcome: Progressing Goal: Diagnostic test results will improve Outcome: Progressing Problem: Cognitive: Anderson Ch[place]ango Fall Risk Goal: Mobility requiring assistance of person or device Outcome: Progressing Problem: Sensory: Acute Pain Goal: Pain level will improve or be tolerable Outcome: Progressing Goal: Ability to develop a pain control plan will improve Outcome: Progressing Problem: Safety: Substance Use Disorder Goal: Risk of injury will improve Outcome: Progressing Goal: Use of risky behaviors will decrease Outcome: Progressing Goals: Identify possible barriers to meeting goals/advancing plan of care: Stability of the patient: Moderately Stable - Low risk of patient condition declining or worsening End of Shift Summary: Patient safety and comfort maintained. BP at soft side PA aware. 1 unit PRBC given. Anxiety meds given. Resting calmly. * Ana Paulino PharmD - 07/02/2025 9:09 PM EDT Initial Pharmacy Vancomycin Dosing Consultation Consult ordering provider: VITALIY Murrell 49 y.o. female is being started on vancomycin Bacteremia (per protocol goal trough 15-18 mg/dL) for7 days. Provider has specified a goal trough of 15-18. Relevant data Height: 1.524 m (60 ) Weight: 56.7 kg (125 lb) Temp Readings from Last 3 Encounters: 07/02/25 37.2 ??C (99 ??F) (Oral) 07/02/25 37.1 ??C (98.7 ??F) (Temporal) WBC Date Value Ref Range Status 07/02/2025 7.3 4.8 - 10.8 K/mcL Final 07/02/2025 6.4 4.8 - 10.8 K/mcL Final 07/01/2025 8.8 4.8 - 10.8 K/mcL Final Creatinine Date Value Ref Range Status 07/02/2025 0.83 0.50 - 1.10 mg/dL Final 07/02/2025 1.07 0.50 - 1.10 mg/dL Final 07/01/2025 1.05 0.50 - 1.10 mg/dL Final Estimated Creatinine Clearance: 66.1 mL/min (by C-G formula based on SCr of 0.83 mg/dL). mL/min Cockcroft-Gault Recent Results (from the past week) Blood Culture, Peripheral Draw #2 Collection Time: 06/30/25 7:46 AM Specimen: Blood, Venous Result Value Ref Range Culture, Blood Methicillin-Resistant Staphylococcus aureus (AA) Gram Stain Result Anaerobic bottle Gram positive cocci in clusters (AA) Blood culture pathogens molecular study Collection Time: 06/30/25 7:46 AM Specimen: Blood, Venous Result Value Ref Range Staphylococcus aureus Detected (A) Not Detected mecA/C and MREJ (MRSA) Detected (A) Not Detected Blood Culture, Peripheral Draw #1 Collection Time: 06/30/25 9:03 AM Specimen: Blood, Venous Result Value Ref Range Culture, Blood No growth at 2 days Culture urine Collection Time: 07/01/25 2:41 AM Specimen: Urine, Clean Catch Result Value Ref Range Culture, Urine No growth Culture blood Collection Time: 07/01/25 8:28 AM Specimen: Blood, Venous Result Value Ref Range Culture, Blood No growth at 24 hours Culture blood Collection Time: 07/01/25 8:33 AM Specimen: Blood, Venous Result Value Ref Range Culture, Blood No growth at 24 hours Blood Culture, Peripheral #1 Collection Time: 07/02/25 7:35 PM Specimen: Blood, Venous Result Value Ref Range Culture, Blood Culture in progress Patient is also receiving the following antibiotic(s): Piperacillin/Tazobactam Plan Patient has received a Initial vancomycin dose of 1250 mg on 07/02/25 at 20:40. Pharmacy will initiate a maintenance dose of 1000 mg every 12 hours starting on 07/03/25 at 09:00. Per protocol, therapy is expected to last more than 5 days and therefore a trough indicated. A trough has been ordered for 07/04/25 at 08:00 prior to 4th dose due on 07/04/25 at 09:00. Therapy is planned to end on 07/09/25 at this time. Will continue to monitor and recommend changes as necessary. Ana Paulino PharmD 07/02/25 9:07 PM EDT * Shraddha Morrissey RN - 07/02/2025 8:28 PM EDT ED RN HANDOFF (All Porter Below Must Be Completed) Reason/Diagnosis for Admission: septic arthritis of lumbar spine Type of Admission: [x] Medsurg, [] Telemetry Already in a Hospital Bed: [] Yes / [x] No Room Considerations/Precautions (ex: fever, diarrhea, or any infectious concerns): [] Yes / [x] No Front Desk Coordinator: [] Yes / [x] No If YES, Cardiac Rhythm: [] NSR, [] SB, [] ST, [] A-FIB, [] A-Flutter, [] Pacemaker, [] 1st Degree HB, [] 2nd Degree HB, [] 3rd Degree HB Reason for Front Desk Coordinator: VS: Visit Vitals BP 137/88 (BP Location: Left arm, Patient Position: Sitting) Pulse 109 Temp 37.2 ??C (99 ??F) (Oral) Resp 16 Ht 1.524 m (60 ) Wt 56.7 kg (125 lb) SpO2 100% BMI 24.41 kg/m?? OB Status Premenopausal Smoking Status Never BSA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 augmentation. Discussed/Reviewedmechanism of action of antipsychotics, expected benefits and time to response, common SEs includingsedation, orthostatic hypotension, glucose dysregulation, dyslipidemias, EPS side effects, and weight gain. Methadone management per addition team. The patient wants voluntary inpatient psychiatric admission. However, she doesn't meet criteria forSection 12 or involuntary psychiatric admission and instead is supposed to go to rehab for continued IV antibiotics. Discussed at length with the patient and encouraged her to continue with that planand revisit the wish to go to a psychiatric unit once finished with IV antibiotics and truly medically cleared. Medication Education: Risks, benefits, alternatives, and potential side effects were discussed withthe patient. Patient voiced understanding and agreed with medication regimen described above. LABS: Reviewed and discussed most recent labs results. MEDICATION CONTRACT: Patient agreed to take medication only as prescribed and acknowledges that services may be terminated if prescription abuse is observed. SAFETY PLAN: Patient is to alert team if symptoms worsen. Team will monitor for development of suicidal ideations or an acute medication reaction. - Call 911 or present to nearest Emergency Room in case of crisis / suicidal thoughts upon discharge. EDUCATION/CONSENT: Discussed and explained all diagnoses including differential diagnosis and treatment options. Discussed risks, benefits, potential side effects, contraindications, potential drug-drug interactions, alternatives to current medications and medication allergies as noted above. Discussed continuing to monitor for side effects and treatment efficacy prospectively and delineated patient's involvement and responsibility in monitoring for side effects and efficacy. Vitaliy méndez expressed understanding of these recommendations. BARRIERS TO LEARNING: Patient demonstrates a readiness to learn. Patient verbalizes understanding and agrees to plan. No barriers to communication noted. MEDICATION RECONCILIATION: Medications were reviewed and reconciled with the patient. PREVENTATIVE RECOMMENDATIONS: Preventative Health Education Counseling: discussed proper diet/nutrition, exercise, and sleep hygiene. The patient was encouraged to avoid nicotine, alcohol and illicitdrugs at all times. The patient was made aware that records from the [facility] can be sent to his/her PCP at any time that he/she requests. [1] Past Medical History: Diagnosis Date Anemia Disease of thyroid gland [2] ascorbic acid, 250 mg, oral, Daily cloNIDine, 0.1 mg, oral, q8h YESENIA docusate sodium, 100 mg, oral, BID enoxaparin, 40 mg, subcutaneous, q24h YESENIA ferrous sulfate, 325 mg, oral, BID gabapentin, 100 mg, oral, q8h YESENIA methadone, 40 mg, oral, Daily sertraline, 25 mg, oral, Daily sodium chloride, 10 mL, intravenous, BID vancomycin, 1,000 mg, intravenous, q12h [3] Allergies Allergen Reactions Hydroxyzine Angioedema Benadryl Allergy Decongestant Risperidone * Zhane Torre MD - 07/05/2025 1:31 PM EDT Consults History Of Present Illness (includes Chief Complaint) 50-year-old female, who has been having severe issues with lumbar colopathy, hospitalizedwith significant worsening of lower back pain as well as septicemia (question septic arthritis), during hospitalization patient had severe microcytic anemia, probably of multiple etiologies. Patient has been feeling fatigue and tired, I was asked evaluate the patient Past Medical History Anemia Thyroid disease Leg radiculopathy Septic arthritis Diabetes Family History Noncontributory Social History Denies smoking She denies alcohol abuse Apparently there is a history of some drug abuse Allergies Hydroxyzine, Benadryl allergy decongestant, and Risperidone Review of Systems Has not been feeling great Has been anxious and having some anxiety and depression issues Has been feeling exhausted and fatigued Denies any obvious blood loss Denies heavy menses Denies any significant black stool blood in stool Physical Exam Alert, partially oriented, Lying comfortably HEENT nonicteric, pale conjunctiva Neck no pallor lymph node Lungs distant breath sound Heart S1-S2 tachycardic Abdomen soft no organomegaly Last Recorded Vitals Blood pressure (!) 132/90, pulse 92, temperature 36.9 ??C (98.4 ??F), temperature source Oral, resp. rate 18, height 1.524 m (60 ), weight 54.1 kg (119 lb 3.2 oz), SpO2 100%.Body mass index is 23.28 kg/m??.Body surface area is 1.5 meters squared. Relevant Results Component Ref Range & Units (hover) 06:36 (07/05/25) 1 d ago (07/04/25) 2 d ago (07/03/25) 2 d ago (07/03/25) 3 d ago (07/02/25) 3 d ago (07/02/25) 4 d ago (07/01/25) WBC 5.9 5.3 5.0 7.3 6.4 8.8 RBC 3.80 4.30 3.40 Low 3.50 Low 3.40 Low 3.70 Low Hemoglobin 7.6 Low 9.1 Low 7.1 Low 6.9 Low 6.7 Low 7.5 Low Hematocrit 27.0 Low 30.3 Low 24.2 Low 24.8 Low 23.7 Low 25.8 Low MCV 71.8 Low 69.8 Low 71.0 Low 70.5 Low 69.3 Low 69.0 Low MCH 20.2 Low 21.0 Low 20.8 Low 19.6 Low 19.6 Low 20.1 Low MCHC 28.1 Low 30.0 Low 29.3 Low 27.8 Low 28.3 Low 29.1 Low RDW 20.4 High 19.9 High 19.3 High 19.5 High 19.0 High 18.1 High Platelets 440 High 452 High 451 R 451 High 565 High 555 High 623 High MPV 9.5 8.9 9.5 9.5 9.5 9.5 NRBC 0.0 0.0 0.0 0.0 0.0 0.0 NRBC Absolute 0.00 0.00 0.00 0.00 0.00 0.00 Neutrophils Relative 58.6 64.1 56.6 68.0 65.3 Lymphocytes Relative 27.0 25.4 32.1 24.8 24.6 Iron saturation only 3% and ferritin only 10 B12 approximately 250 Haptoglobin elevated Assessment/Plan Principal Problem: Septic arthritis of lumbar spine (CMS/HCC V24) Microcytic anemia Patient is a 50-year-old female who has multiple medical issues, hospitalized with significant septic arthritis, patient during hospitalization found to have moderate to severe microcytic anemia, most likely of multiple etiology including occult blood loss, anemia of chronic disease, bonemarrow suppression due to medication, hemolysis etc. I discussed case with Gwendolyn BURKS that most likely her anemia is multiple etiology unlikelyhemolysis or hemolytic anemia, I will repeat iron studies and if needed would give intravenous ironinfusion, I would also like to check serum immunoelectrophoresis, hemoglobin electrophoresis etc. rule out any other underlying etiology. I would be aggressively treating her infections Please call me for any question or if there is any significant workup Zhane Torre MD * VITALIY Joel - 07/05/2025 7:57 AM EDTAssociated Order(s): IP CONSULT TO NEUROSURGERY NEUROSURGERY CONSULT Date of Visit: 07/05/2025 Primary Care Physician: Pcp Unknown Physician RE: Kathy Ballard : 1975 CC: left anterior thigh cellulitis, MRSA bacteremia, back pain with left buttock and proximal posterior thigh pain. MRI: Findings suggestive of septic arthritis involving the left L4-L5 facet joint with surrounding cellulitis. HPI: Kathy Ballard is a 50 y.o. female who presents with 2 week h/o left LBP, states originally thepain was 10/10, she could barely walk or move. Now her back pain is 6/10, and radiates to left buttock and proximal posterior thigh. She feels she has to hunch forward, or when sitting lean over to put weight on her right buttock. She states all night she had to walk around because it was too painful to sleep in bed, notes discomfort trying to get in and out of bed. No B/B incontinence or saddle anesthesia. No previous h/o LBP. Denies neck pain or arm sxs. She has known IV drug use and numerous skin ulcerations and open sores, left thigh, arms/wrists. Ptbeing followed by soft drink powder mixer and infectious disease. On Vancomycin. Dilaudid and Gabapentin for pain. LABS reviewed, + Hep C, WBC nl, Plts 400-500's. Blood cxs yesterday 1: NGTD 24 hr. 2: + staph aureus and MRSA detected. HIV negative. CRP 5d ago 8.53--> 3d ago 2.10, improving. Drug screen + cocaine, opiates, fentanyl, + Pt on methadone. Received blood transfusion for anemia H&H 6.9/24.8 on admission. Medical History[1] Surgical History[2] Allergies[3] Current Medications[4] Social History[5] Social History Social History Narrative Not on file Family History[6] Review of Systems Denies CP, SOB, tripping/falling, leg buckling. No B/B incontinence or saddle anesthesia. No previous h/o LBP. Denies neck pain or arm sxs. Physical Exam Pt is awake and alert. Speech and comprehension is intact. Respirations are unlabored, heart has regular rate. Motor exam reveals 5/5 strength to resistence bilaterally in UE's and Le's with exception giveway weakness left quad. Reflexes are WNL, no hyperreflexia, Reddy's or clonus. No cutaneous a bnormalities noted over the low back, + left anterior thigh cellulitis and dressing on wrists. + pain with palpation over the left lateral back approx L4- 5. No midline spine tenderness throughout. Good cervical ROM. Pt is ambulating independently. Imaging Results for orders placed during the hospital encounter of 06/30/25 MR Lumbar Spine wo and w Contrast INDICATION: hx of IVDA, r/o spinal epidural abscess Comparison: DX/CO/SR - XR L SPINE 2 3 VW - 06/30/25 08:53 EDT Findings: 5 lumbar type vertebral bodies are present by plain film. Alignment is normal. No acute fracture. There is moderate ill-defined STIR signal elevation and enhancement within the left inferior L4 and left superior L5 articulating facets. There is a peripherally enhancing moderate left L4-L5 facet joint effusion. Cauda equina and conus medullaris within normal limits. No epidural abscess. Mildly prominent retroperitoneal lymph nodes. Moderate ill-defined STIR signal elevation and enhancement within the left posterior paraspinous soft tissues at L4-L5. L1-L2: No significant canal nor foraminal stenosis. L2-L3:No significant canal nor foraminal stenosis. L3-L4:Mild facet and ligamentum flavum hypertrophy. Mild epidural lipomatosis. Mild canal stenosis. Mild bilateral foraminal stenosis. L4-L5: Mild disc desiccation and diffuse disc bulge. Mild bilateral facet hypertrophy. Mild canal stenosis. Moderate bilateral foraminal stenosis. L5-S1:Mild disc desiccation and diffuse disc bulge with superimposed left paracentral protrusion. Mild bilateral facet hypertrophy. Mild canal stenosis. Mild bilateral foraminal stenosis. Mild posterior deviation of the left S1 nerve root within the lateral recess. Impression 1. Findings suggestive of septic arthritis involving the left L4-L5 facet joint with surrounding cellulitis. 2. Multilevel degenerative disc and facet disease, as well as ligamentum flavum hypertrophy. 3. Mild multilevel canal stenoses. 4. Multilevel mild and moderate foraminal stenoses. 5. Posterior deviation of the left S1 nerve root within the lateral recess at L5-S1. Correlation with clinical symptoms is recommended to assess relevance of this finding. Assessment/Plan + MRSA bacteremia, septic arthritis left L4-L5 facet joint, back pain, cellulitis. Pt is currently being treated with IV Vancomycin. Since there is a known pathogen and overall neuroexam intact (mild giveway weakness left quad), no surgical intervention needed at this time, continue antibiotics and pt can F/U in the office in 6 weeks, or sooner if worsening sxs. I reviewed the MRI with Dr. Noriega, pt also has small left central L5-S1 disc herniation. Please call with any concerns or questions. VITALIY Joel on 07/05/2025 at 7:58 AM EDT CC: No ref. provider found Pcp Unknown Physician [facility] [place] [1] Past Medical History: Diagnosis Date Anemia Disease of thyroid gland [2] No past surgical history on file. [3] Allergies Allergen Reactions Hydroxyzine Angioedema Benadryl Allergy Decongestant Risperidone [4] Current Facility-Administered Medications: acetaminophen (TYLENOL) tablet 650 mg, 650 mg, oral, q4h PRN, Joe Dockery MD ascorbic acid (VITAMIN C) tablet 250 mg, 250 mg, oral, Daily, Joe Dockery MD, 250 mg at 07/04/25 0946 buprenorphine (BUPRENEX) injection 0.15 mg, 0.15 mg, intravenous, BID, Micheline Shah DO [START ON 07/06/2025] buprenorphine (BUPRENEX) injection 0.3 mg, 0.3 mg, intravenous, BID, Micheline Shah DO [START ON 07/07/2025] buprenorphine-naloxone (SUBOXONE) 2-0.5 mg per SL tablet 1 tablet, 1 tablet, sublingual, BID, Micheline Shah DO cloNIDine (CATAPRES) tablet 0.1 mg, 0.1 mg, oral, q8h [facility], Joe Dockery MD, 0.1 mg at 07/04/251448 cyanocobalamin (VITAMIN B-12) injection 1,000 mcg, 1,000 mcg, intramuscular, Daily, Joe Dockery MD, 1,000 mcg at 07/04/25945 docusate sodium (COLACE) capsule 100 mg, 100 mg, oral, BID, VITALIY Rodríguez, 100 mg at 07/04/252116 enoxaparin (LOVENOX) injection 40 mg, 40 mg, subcutaneous, q24h YESENIA, VITALIY Rodríguez, 40 mg at 07/04/25945 ferrous sulfate tablet 325 mg, 325 mg, oral, BID, VITALIY Rodríguez, 325 mg at 07/04/252116 gabapentin (NEURONTIN) capsule 100 mg, 100 mg, oral, q8h [facility], VITALIY Rodríguez HYDROmorphone (DILAUDID) injection 0.5 mg, 0.5 mg, intravenous, q3h PRN, Joe Dockery MD, 0.5mg at 07/04/251448 HYDROmorphone (DILAUDID) injection 1 mg, 1 mg, intravenous, q2h PRN, VITALIY Murrell, 1 mg at 07/05/25215 hydrOXYzine pamoate (VISTARIL) capsule 25 mg, 25 mg, oral, Once, Adrian Rodriguez MD LORazepam (ATIVAN) tablet 1 mg, 1 mg, oral, q6h PRN, VITALIY Rodríguez, 1 mg at 07/04/252116 [START ON 07/06/2025] methadone (DOLOPHINE) tablet 30 mg, 30 mg, oral, Daily, Micheline Shah DO methadone (METHADOSE) dispersible tablet 40 mg, 40 mg, oral, Daily, Micheline Shah DO ondansetron ODT (ZOFRAN-ODT) disintegrating tablet 4 mg, 4 mg, oral, q8h PRN OR ondansetron (PF) (ZOFRAN) injection 4 mg, 4 mg, intravenous, q8h PRN, Joe Dockery MD prochlorperazine (COMPAZINE) tablet 10 mg, 10 mg, oral, q6h PRN OR prochlorperazine (COMPAZINE)injection 10 mg, 10 mg, intravenous, q6h PRN OR prochlorperazine (COMPAZINE) suppository 25 mg,25 mg, rectal, q12h PRN, Joe Dockery MD Insert peripheral IV, , , Once AND Maintain IV access, , , Until discontinued AND Saline lock IV, , , Once AND sodium chloride 0.9 % flush 10 mL, 10 mL, intravenous, BID, 10 mL at 07/04/25 2241 AND sodium chloride 0.9 % flush 10 mL, 10 mL, intravenous, PRN, Joe Dockery MD sodium chloride 0.9 % infusion, 42 mL/hr, intravenous, PRN, VITALIY Murrell vancomycin (VANCOCIN) 1,000 mg in sodium chloride 0.9 % 250 mL IVPB, 1,000 mg, intravenous, q12h, VITALIY Murrell, Stopped at 07/05/25 0116 zolpidem (AMBIEN) tablet 5 mg, 5 mg, oral, Nightly PRN, VITALIY Rodríguez, 5 mg at 07/04/25 2117 [5] Social History Tobacco Use Smoking status: Never Smokeless tobacco: Never [6] No family history on file. * Julianna Orozco MD - 2025 5:05 PM EDTAssociated Order(s): IP CONSULT TO INFECTIOUS DISEASES Infectious Diseases Consult 07/03/25 No ref. provider found Pcp Unknown Physician Reason for Consultation: L5/S1 septic arthritis Source of history: chart review and the patient Consult placed by: VITALIY Blum History Of Present Illness (includes Chief Complaint): Kathy Ballard is a 50 y.o. female who has a past medical history of Anemia and Disease of thyroid gland.. The patient was admitted to the hospital on 07/02/2025 for back pain. The pt had initially presented with back pain 0n 06/30 and was found to have MRSA bacteremia. She had an MRI of her spine done yesterday AM which revealed L5/S1 septic arthritis. Unfortunately, she left AMA yesterday AM. She presented back to the hospital in the evening as she had worsening pain. She was started on Vanc and Zosyn. She is c/o back pain but no other deficits. . The ID service has been consulted for management during this patient's hospital stay. Past Medical History: Medical History[1] Surgical History: Surgical History[2] Family History: Family History[3] Social History: Social History[4] Allergies: Hydroxyzine, Benadryl allergy decongestant, and Risperidone Home Medications: Prior to Admission medications Not on File Current Medications: Current Medications[5] MEDSPRN[6] ROS: Review of Systems Constitutional: Negative. HENT: Negative. Respiratory: Negative. Cardiovascular: Negative. Gastrointestinal: Negative. Genitourinary: Negative. Musculoskeletal: Positive for back pain. Skin: Negative. Neurological: Negative. Vital signs for last 24 hours: Temp: 36.4 ??C (97.6 ??F) (07/03 151) Heart Rate: 83 (07/03 151) Resp: 16 (07/03 151) BP: 118/89 (07/03 151) Intake/Output this shift: I/O this shift: In: 250 [IV Piggyback:250] Out: - Physicial Exam Physical Exam Vitals reviewed. Constitutional: Appearance: Normal appearance. HENT: Head: Normocephalic and atraumatic. Eyes: General: No scleral icterus. Cardiovascular: Rate and Rhythm: Normal rate and regular rhythm. Heart sounds: No murmur heard. No friction rub. No gallop. Pulmonary: Effort: No respiratory distress. Breath sounds: No stridor. No wheezing or rhonchi. Abdominal: General: There is no distension. Palpations: Abdomen is soft. Tenderness: There is no abdominal tenderness. There is no guarding or rebound. Musculoskeletal: General: No swelling or signs of injury. Skin: General: Skin is dry. Coloration: Skin is not jaundiced or pale. Neurological: General: No focal deficit present. Mental Status: She is alert and oriented to person, place, and time. Results: Lab Admission on 07/02/2025 Component Date Value Sodium 07/02/2025 139 Potassium 07/02/2025 3.7 Chloride 07/02/2025 107 CO2 07/02/2025 27 Anion Gap 07/02/2025 5 Glucose 07/02/2025 81 BUN 07/02/2025 26 (H) Creatinine 07/02/2025 0.83 eGFR 07/02/2025 88 BUN/Creatinine Ratio 07/02/2025 31.3 Calcium 07/02/2025 8.6 AST (SGOT) 07/02/2025 12 ALT (SGPT) 07/02/2025 8 (L) Alkaline Phosphatase 07/02/2025 74 Total Protein 07/02/2025 7.9 Albumin 07/02/2025 2.9 (L) Total Bilirubin 07/02/2025 0.2 Culture, Blood 07/02/2025 Culture in progress WBC 07/02/2025 7.3 RBC 07/02/2025 3.50 (L) Hemoglobin 07/02/2025 6.9 (L) Hematocrit 07/02/2025 24.8 (L) MCV 07/02/2025 70.5 (L) MCH 07/02/2025 19.6 (L) MCHC 07/02/2025 27.8 (L) RDW 07/02/2025 19.5 (H) Platelets 07/02/2025 565 (H) MPV 07/02/2025 9.5 NRBC 07/02/2025 0.0 NRBC Absolute 07/02/2025 0.00 Neutrophils Relative 07/02/2025 68.0 Lymphocytes Relative 07/02/2025 24.8 Monocytes Relative 07/02/2025 5.7 Eosinophils Relative 07/02/2025 0.5 Basophils Relative 07/02/2025 0.7 Immature Granulocytes Re* 07/02/2025 0.3 Neutrophils Absolute 07/02/2025 4.98 Lymphocytes Absolute 07/02/2025 1.82 Monocytes Absolute 07/02/2025 0.42 Eosinophils Absolute 07/02/2025 0.04 Basophils Absolute 07/02/2025 0.05 Immature Granulocytes Ab* 07/02/2025 0.02 C-Reactive Protein 07/02/2025 2.10 (H) Product Code 07/02/2025 [id number] Unit Number 07/02/2025 [id number] Crossmatch 07/02/2025 Compatible Dispense Status 07/02/2025 Transfused Unit ABO Rh 07/02/2025 APOS Unit Expiration Date Time 07/02/2025825556234416 Unit Blood Type 07/02/2025 6200 Sodium 2025 141 Potassium 2025 4.1 Chloride 2025 109 CO2 2025 28 Anion Gap 2025 4 Glucose 2025 90 BUN 2025 21 Creatinine 2025 0.85 eGFR 2025 85 BUN/Creatinine Ratio 2025 24.7 Calcium 2025 8.0 (L) Magnesium 2025 2.4 WBC 2025 5.0 RBC 2025 3.40 (L) Hemoglobin 2025 7.1 (L) Hematocrit 2025 24.2 (L) MCV 2025 71.0 (L) MCH 2025 20.8 (L) MCHC 2025 29.3 (L) RDW 2025 19.3 (H) Platelets 2025 451 (H) MPV 2025 9.5 NRBC 2025 0.0 NRBC Absolute 2025 0.00 Neutrophils Relative 2025 56.6 Lymphocytes Relative 2025 32.1 Monocytes Relative 2025 8.5 Eosinophils Relative 2025 1.8 Basophils Relative 2025 0.8 Immature Granulocytes Re* 2025 0.2 Neutrophils Absolute 2025 2.81 Lymphocytes Absolute 2025 1.59 Monocytes Absolute 2025 0.42 Eosinophils Absolute 2025 0.09 Basophils Absolute 2025 0.04 Immature Granulocytes Ab* 2025 0.01 Culture, Blood 2025 Culture in progress Culture, Blood 2025 Culture in progress No results displayed because visit has over 200 results. Lab Results Component Value Date BLOODCX Culture in progress 2025 BLOODCX Culture in progress 2025 URINECX No growth 07/01/2025 Recent Results (from the past week) Blood Culture, Peripheral Draw #2 Collection Time: 06/30/25 7:46 AM Specimen: Blood, Venous Result Value Ref Range Culture, Blood Methicillin-Resistant Staphylococcus aureus (AA) Gram Stain Result Anaerobic bottle Gram positive cocci in clusters (AA) Susceptibility Methicillin-Resistant Staphylococcus aureus - PETTY Benzylpenicillin Resistant ug/ml Oxacillin Resistant ug/ml Gentamicin Susceptible ug/ml Ciprofloxacin Susceptible ug/ml Levofloxacin Susceptible ug/ml Erythromycin Resistant ug/ml Clindamycin Susceptible ug/ml Linezolid Susceptible ug/ml Vancomycin Susceptible ug/ml Tetracycline Susceptible ug/ml Rifampin Susceptible ug/ml Trimethoprim/Sulfamethoxazole Susceptible ug/ml Blood culture pathogens molecular study Collection Time: 06/30/25 7:46 AM Specimen: Blood, Venous Result Value Ref Range Staphylococcus aureus Detected (A) Not Detected mecA/C and MREJ (MRSA) Detected (A) Not Detected Blood Culture, Peripheral Draw #1 Collection Time: 06/30/25 9:03 AM Specimen: Blood, Venous Result Value Ref Range Culture, Blood No growth at 2 days Culture urine Collection Time: 07/01/25 2:41 AM Specimen: Urine, Clean Catch Result Value Ref Range Culture, Urine No growth Culture blood Collection Time: 07/01/25 8:28 AM Specimen: Blood, Venous Result Value Ref Range Culture, Blood No growth at 2 days Culture blood Collection Time: 07/01/25 8:33 AM Specimen: Blood, Venous Result Value Ref Range Culture, Blood No growth at 2 days Blood Culture, Peripheral #1 Collection Time: 07/02/25 7:35 PM Specimen: Blood, Venous Result Value Ref Range Culture, Blood Culture in progress Blood Culture, Peripheral Draw #1 Collection Time: 07/03/25 1:35 PM Specimen: Blood, Venous Result Value Ref Range Culture, Blood Culture in progress Blood Culture, Peripheral Draw #2 Collection Time: 07/03/25 2:28 PM Specimen: Blood, Venous Result Value Ref Range Culture, Blood Culture in progress Radiology: MR Lumbar Spine wo and w Contrast Narrative: INDICATION: hx of IVDA, r/o spinal epidural abscess MR lumbar spine with and without gadolinium Comparison: DX/CO/SR - XR L SPINE 2 3 VW - 06/30/25 08:53 EDT Findings: 5 lumbar type vertebral bodies are present by plain film. Alignment is normal. No acute fracture. There is moderate ill-defined STIR signal elevation and enhancement within the left inferior L4 and left superior L5 articulating facets. There is a peripherally enhancing moderate left L4-L5 facet joint effusion. Cauda equina and conus medullaris within normal limits. No epidural abscess. Mildly prominent retroperitoneal lymph nodes. Moderate ill-defined STIR signal elevation and enhancement within the left posterior paraspinous soft tissues at L4-L5. L1-L2: No significant canal nor foraminal stenosis. L2-L3:No significant canal nor foraminal stenosis. L3-L4:Mild facet and ligamentum flavum hypertrophy. Mild epidural lipomatosis. Mild canal stenosis. Mild bilateral foraminal stenosis. L4-L5: Mild disc desiccation and diffuse disc bulge. Mild bilateral facet hypertrophy. Mild canal stenosis. Moderate bilateral foraminal stenosis. L5-S1:Mild disc desiccation and diffuse disc bulge with superimposed left paracentral protrusion. Mild bilateral facet hypertrophy. Mild canal stenosis. Mild bilateral foraminal stenosis. Mild posterior deviation of the left S1 nerve root within the lateral recess. Impression: 1. Findings suggestive of septic arthritis involving the left L4-L5 facet joint with surrounding cellulitis. 2. Multilevel degenerative disc and facet disease, as well as ligamentum flavum hypertrophy. 3. Mild multilevel canal stenoses. 4. Multilevel mild and moderate foraminal stenoses. 5. Posterior deviation of the left S1 nerve root within the lateral recess at L5-S1. Correlation with clinical symptoms is recommended to assess relevance of this finding. This document has been electronically signed by: Rebeka Rawls MD on 07/01/2025 18:21:56 Transthoracic echocardiogram (TTE) complete with PRN contrast, bubble, strain, and 3D order panel Left ventricle cavity size is normal. Left ventricular systolic function is in the normal range with an ejection fraction of 55-60%. Right ventricle cavity is normal. Right ventricular systolic function is normal. No hemodynamic significant valvular abnormalities. No gross vegetation. Trivial pericardial effusion. Assessment/Plan Kathy Ballard is a 50 y.o. female who has a past medical history of Anemia and Disease of thyroid gland.. The patient was admitted to the hospital on 07/02/2025 for back pain. The pt had initially presented with back pain 0n 06/30 and was found to have MRSA bacteremia. She had an MRI of her spine done yesterday AM which revealed L5/S1 septic arthritis. Unfortunately, she left AMA yesterday AM. She presented back to the hospital in the evening as she had worsening pain. She was started on Vanc and Zosyn. She is c/o back pain but no other deficits. . The ID service has been consulted for management during this patient's hospital stay. MRSA bacteremia 2/2 L5/S1 septic arthritis Substance use disorder Vanc dosing Substance use disorder I am stopping Zosyn Continue Vanc goal 15-20 Await repeat blood C/S, I have ordered 2 sets TTE with no veg I am checking HIV and Hep B plus C, pt agreeable Recommendations: 1. Continue vancomycin goal 15-20 I am stopping Zosyn 2. Await blood culture results 3. Consider neurosurgical consult This included performing a detailed chart review, reviewing and independently interpreting labs andother tests ordered by other providers, performing a history and physical, counseling the patient/family, discussing the case with primary team , performing complex medical decision making, coordinating his/her/their plan of care and placing orders, monitoring a drug (Vanc) for toxicity in collaboration with pharmacy. the pt has a highly complex infection which is life and limb threatening, with MRSA bacteremia complicated by septic arthritis of L5/S1 spine for which I am the primary specialistinvolved in managing antimicrobials, moderate level MDM used Isolation: None Communication: Thank you for the consult. Please do not hesitate to contact me via EpicChat with issues or questions Julianna Orozco MD [1] Past Medical History: Diagnosis Date Anemia Disease of thyroid gland [2] No past surgical history on file. [3] No family history on file. [4] Social History Tobacco Use Smoking status: Never Smokeless tobacco: Never [5] Current Facility-Administered Medications: ascorbic acid (VITAMIN C) tablet 250 mg, 250 mg, oral, Daily, oJe Dockery MD, 250 mg at 07/03/25 68 cloNIDine (CATAPRES) tablet 0.1 mg, 0.1 mg, oral, q8h YESENIA, Joe Dockery MD, 0.1 mg at 07/02/25 5237 cyanocobalamin (VITAMIN B-12) injection 1,000 mcg, 1,000 mcg, intramuscular, Daily, Joe Dockery MD, 1,000 mcg at 07/03/25826 docusate sodium (COLACE) capsule 100 mg, 100 mg, oral, BID, VITALIY Rodríguez, 100 mg at 07/03/251236 enoxaparin (LOVENOX) injection 40 mg, 40 mg, subcutaneous, q24h YESENIA, VITALIY Rodríguez, 40 mg at 07/03/251236 ferrous sulfate tablet 325 mg, 325 mg, oral, BID, VITALIY Rodríguez, 325 mg at 07/03/251236 gabapentin (NEURONTIN) capsule 100 mg, 100 mg, oral, q8h YESENIA, VITALIY Rodríguez HYDROmorphone (DILAUDID) injection 0.5 mg, 0.5 mg, intravenous, q3h PRN, Joe Dockery MD HYDROmorphone (DILAUDID) injection 1 mg, 1 mg, intravenous, q2h PRN, VITALIY Murrell, 1 mg at 07/03/251658 hydrOXYzine pamoate (VISTARIL) capsule 25 mg, 25 mg, oral, Once, Adrian Rodriguez MD LORazepam (ATIVAN) tablet 1 mg, 1 mg, oral, q6h PRN, VITALIY Rodríguez methadone (METHADOSE) dispersible tablet 40 mg, 40 mg, oral, Daily, 40 mg at 07/03/25826 AND methadone (DOLOPHINE) tablet 10 mg, 10 mg, oral, Daily, VITALIY Murrell, 10 mg at 07/03/25826 piperacillin-tazobactam (ZOSYN) 3.375 g in sodium chloride 0.9 % 100 mL IVPB, 3.375 g, intravenous,q6h, Joe Dockery MD, Last Rate: 200 mL/hr at 07/03/251658, 3.375 g at 07/03/251658 sodium chloride 0.9 % infusion, 42 mL/hr, intravenous, PRN, VITALIY Murrell vancomycin (VANCOCIN) 1,000 mg in sodium chloride 0.9 % 250 mL IVPB, 1,000 mg, intravenous, q12h, VITALIY Murrell, Stopped at 07/03/25 1025 zolpidem (AMBIEN) tablet 5 mg, 5 mg, oral, Nightly PRN, VITALIY Rodríguez [6] PRN medications: HYDROmorphone, HYDROmorphone, LORazepam, sodium chloride, zolpidem * Micheline Shah DO - 2025 12:55 PM EDTAssociated Order(s): IP CONSULT TO ADDICTION MEDICINE Images from the original note were not included. Kathy Ballard 1975 [id number] Author: Micheline Shah DO DOS: 2025 Requesting Service: Hospitalist Service Chief Complaint: Septic arthritis of lumbar spine (CMS/[facility] V24) Reason for Consultation: Opioid use disorder and Cocaine use disorder Source of History: Patient and chart Subjective History of Present Illness: Kathy Ballard is a 50 y.o. female with a history of opioid use disorder re- admitted for septic arthritis of lumbar spine. Patient is known to our service from previous admission on 06/30 for same. Unfortunately patient self directed discharge on 07/02. Patient attributes her leaving to anxiety and states that she returned with her family's urging. She states she rarely leaves her home and does use alone. She confirms that she did return to use between discharge and readmission. She states sheuses 2 bags per day. She reports she missed about 2 weeks of methadone doses through her clinic [facility] and is not sure if she wants to go up on her dose because she does not want to be stuck on it . She does not like having to go daily. She reports she used to be on 180 mg and was still using at that time. She has reported using about $50 worth of IV cocaine per day. Her goals are to treat her infection so that she feels better. Allergies: Allergies[1] Home Medications: Prior to Admission medications Not on File Past Medical History: Medical History[2] Past Surgical History: Surgical History[3] Family History: Family History[4] Social History: Tobacco Use History[5] Social History Substance and Sexual Activity Alcohol Use None Social History Substance and Sexual Activity Drug Use Not on file Review of Systems: Review of Systems Constitutional: Negative for chills and fever. Musculoskeletal: Positive for back pain. Skin: Positive for wound. Psychiatric/Behavioral: The patient is nervous/anxious. Objective Last Recorded Vitals: Blood pressure 118/85, pulse 89, temperature 36.9 ??C (98.4 ??F), temperature source Temporal, resp. rate 18, height 1.524 m (60 ), weight 54.1 kg (119 lb 3.2 oz), SpO2 99%. Physical Exam Gen: NAD HEENT: pupils normal, OP clear CV: RRR Pulm: CTA Skin: +multiple scars, +bilateral UE dressings in place, right more loosely attached with blood stains Neuro: Alert and oriented, No tremor Pysch: Mood and affect normal Labs: Results for orders placed or performed during the hospital encounter of 07/02/25 Blood Culture, Peripheral #1 Collection Time: 07/02/25 7:35 PM Specimen: Blood, Venous Result Value Ref Range Culture, Blood Culture in progress CBC auto differential Collection Time: 07/02/25 7:35 PM Result Value Ref Range WBC 7.3 4.8 - 10.8 K/mcL RBC 3.50 (L) 3.80 - 4.80 M/mcL Hemoglobin 6.9 (L) 11.5 - 16.0 g/dL Hematocrit 24.8 (L) 35.0 - 47.0 % MCV 70.5 (L) 79.0 - 98.0 FL MCH 19.6 (L) 27.0 - 32.0 pcg MCHC 27.8 (L) 32.0 - 37.0 g/dL RDW 19.5 (H) 11.0 - 15.0 % Platelets 565 (H) 130 - 400 K/mcL MPV 9.5 7.0 - 11.0 FL NRBC 0.0 <1.0 % NRBC Absolute 0.00 <0.10 K/mcL Neutrophils Relative 68.0 % Lymphocytes Relative 24.8 % Monocytes Relative 5.7 % Eosinophils Relative 0.5 % Basophils Relative 0.7 % Immature Granulocytes Relative 0.3 % Neutrophils Absolute 4.98 1.50 - 7.00 K/mcL Lymphocytes Absolute 1.82 1.00 - 5.00 K/mcL Monocytes Absolute 0.42 0.20 - 1.00 K/mcL Eosinophils Absolute 0.04 0.00 - 0.50 K/mcL Basophils Absolute 0.05 0.00 - 0.20 K/mcL Immature Granulocytes Absolute 0.02 0.00 - 0.03 K/mcL Comprehensive Metabolic Panel (CMP) Collection Time: 07/02/25 8:17 PM Result Value Ref Range Sodium 139 133 - 145 mmol/L Potassium 3.7 3.5 - 5.5 mmol/L Chloride 107 96 - 110 mmol/L CO2 27 21 - 32 mmol/L Anion Gap 5 3 - 11 Glucose 81 70 - 100 mg/dL BUN 26 (H) 5 - 25 mg/dL Creatinine 0.83 0.50 - 1.10 mg/dL eGFR 88 >=60 mL/min/1.73m2 BUN/Creatinine Ratio 31.3 Calcium 8.6 8.5 - 10.5 mg/dL AST (SGOT) 12 10 - 42 unit/L ALT (SGPT) 8 (L) 10 - 60 unit/L Alkaline Phosphatase 74 42 - 121 unit/L Total Protein 7.9 6.0 - 8.0 g/dL Albumin 2.9 (L) 3.2 - 5.0 g/dL Total Bilirubin 0.2 0.0 - 1.4 mg/dL C-reactive protein Collection Time: 07/02/25 8:17 PM Result Value Ref Range C-Reactive Protein 2.10 (H) <=0.50 mg/dL Prepare RBC: 1 Units, Leukoreduced Collection Time: 07/02/25 8:35 PM Result Value Ref Range Product Code S8890X56 Unit Number [id number] Crossmatch Compatible Dispense Status Transfused Unit ABO Rh APOS Unit Expiration Date Time [id number] Unit Blood Type 6200 Basic metabolic panel Collection Time: 07/03/25 6:10 AM Result Value Ref Range Sodium 141 133 - 145 mmol/L Potassium 4.1 3.5 - 5.5 mmol/L Chloride 109 96 - 110 mmol/L CO2 28 21 - 32 mmol/L Anion Gap 4 3 - 11 Glucose 90 70 - 100 mg/dL BUN 21 5 - 25 mg/dL Creatinine 0.85 0.50 - 1.10 mg/dL eGFR 85 >=60 mL/min/1.73m2 BUN/Creatinine Ratio 24.7 Calcium 8.0 (L) 8.5 - 10.5 mg/dL Magnesium Collection Time: 07/03/25 6:10 AM Result Value Ref Range Magnesium 2.4 1.9 - 2.6 mg/dL CBC auto differential Collection Time: 07/03/25 6:10 AM Result Value Ref Range WBC 5.0 4.8 - 10.8 K/mcL RBC 3.40 (L) 3.80 - 4.80 M/mcL Hemoglobin 7.1 (L) 11.5 - 16.0 g/dL Hematocrit 24.2 (L) 35.0 - 47.0 % MCV 71.0 (L) 79.0 - 98.0 FL MCH 20.8 (L) 27.0 - 32.0 pcg MCHC 29.3 (L) 32.0 - 37.0 g/dL RDW 19.3 (H) 11.0 - 15.0 % Platelets 451 (H) 130 - 400 K/mcL MPV 9.5 7.0 - 11.0 FL NRBC 0.0 <1.0 % NRBC Absolute 0.00 <0.10 K/mcL Neutrophils Relative 56.6 % Lymphocytes Relative 32.1 % Monocytes Relative 8.5 % Eosinophils Relative 1.8 % Basophils Relative 0.8 % Immature Granulocytes Relative 0.2 % Neutrophils Absolute 2.81 1.50 - 7.00 K/mcL Lymphocytes Absolute 1.59 1.00 - 5.00 K/mcL Monocytes Absolute 0.42 0.20 - 1.00 K/mcL Eosinophils Absolute 0.09 0.00 - 0.50 K/mcL Basophils Absolute 0.04 0.00 - 0.20 K/mcL Immature Granulocytes Absolute 0.01 0.00 - 0.03 K/mcL Imaging: MR Lumbar Spine wo and w Contrast Narrative: INDICATION: hx of IVDA, r/o spinal epidural abscess MR lumbar spine with and without gadolinium Comparison: DX/CO/SR - XR L SPINE 2 3 VW - 06/30/25 08:53 EDT Findings: 5 lumbar type vertebral bodies are present by plain film. Alignment is normal. No acute fracture. There is moderate ill-defined STIR signal elevation and enhancement within the left inferior L4 and left superior L5 articulating facets. There is a peripherally enhancing moderate left L4-L5 facet joint effusion. Cauda equina and conus medullaris within normal limits. No epidural abscess. Mildly prominent retroperitoneal lymph nodes. Moderate ill-defined STIR signal elevation and enhancement within the left posterior paraspinous soft tissues at L4-L5. L1-L2: No significant canal nor foraminal stenosis. L2-L3:No significant canal nor foraminal stenosis. L3-L4:Mild facet and ligamentum flavum hypertrophy. Mild epidural lipomatosis. Mild canal stenosis. Mild bilateral foraminal stenosis. L4-L5: Mild disc desiccation and diffuse disc bulge. Mild bilateral facet hypertrophy. Mild canal stenosis. Moderate bilateral foraminal stenosis. L5-S1:Mild disc desiccation and diffuse disc bulge with superimposed left paracentral protrusion. Mild bilateral facet hypertrophy. Mild canal stenosis. Mild bilateral foraminal stenosis. Mild posterior deviation of the left S1 nerve root within the lateral recess. Impression: 1. Findings suggestive of septic arthritis involving the left L4-L5 facet joint with surrounding cellulitis. 2. Multilevel degenerative disc and facet disease, as well as ligamentum flavum hypertrophy. 3. Mild multilevel canal stenoses. 4. Multilevel mild and moderate foraminal stenoses. 5. Posterior deviation of the left S1 nerve root within the lateral recess at L5-S1. Correlation with clinical symptoms is recommended to assess relevance of this finding. This document has been electronically signed by: Rebeka Rawls MD on 07/01/2025 18:21:56 Transthoracic echocardiogram (TTE) complete with PRN contrast, bubble, strain, and 3D order panel Left ventricle cavity size is normal. Left ventricular systolic function is in the normal range with an ejection fraction of 55-60%. Right ventricle cavity is normal. Right ventricular systolic function is normal. No hemodynamic significant valvular abnormalities. No gross vegetation. Trivial pericardial effusion. Meds: MEDSSCHEDULED[6] MEDSCONTINUOUS[7] MEDSPRN[8] Assessment and Plan Kathy Ballard is a 50 y.o. female with a history of opioid use disorder admitted for septic arthritis of lumbar spine. Opioid Use Disorder Patient previously on methadone through [facility] was last dosed there on 06/10 Patient last received 50 mg methadone on 07/01 Patient is unsure about continuing methadone. Reviewed option to transition to buprenorphine. Continue methadone 50 mg PO daily per patient preference Reviewed with patient that if stays with methadone would recommend titration to a therapeutic dose to manage cravings and w/d symptoms. Continue treating pain with short acting opioids Avoid [employer] depressant medications that may increase risk of overdose Consider initiation of SSRI/SNRI and/or psychiatry consultation Will continue to follow to review options for treatment and offer support Patient would benefit from harm reduction counseling and supplies including fentanyl test strips and Narcan Team will continue to follow and engage with patient. Cocaine use Counseled risk of cocaine including cardiac arrhythmias, stroke, fentanyl contamination and risk ofoverdose Patient may benefit from harm reduction supplies including fentanyl test strips and Narcan prior todischarge Thank you for the interesting consultation. Please reach out with any questions or concerns. Principal Problem: Septic arthritis of lumbar spine ([facility] V24) Provider Attestation Electronically signed by Micheline Shah DO [1] Allergies Allergen Reactions Hydroxyzine Angioedema Benadryl Allergy Decongestant Risperidone [2] Past Medical History: Diagnosis Date Anemia Disease of thyroid gland [3] No past surgical history on file. [4] No family history on file. [5] Social History Tobacco Use Smoking Status Never Smokeless Tobacco Never [6] ascorbic acid, 250 mg, oral, Daily cloNIDine, 0.1 mg, oral, q8h YESENIA cyanocobalamin, 1,000 mcg, intramuscular, Daily docusate sodium, 100 mg, oral, BID enoxaparin, 40 mg, subcutaneous, q24h YESENIA ferrous sulfate, 325 mg, oral, BID gabapentin, 100 mg, oral, q8h YESENIA hydrOXYzine pamoate, 25 mg, oral, Once methadone, 40 mg, oral, Daily And methadone, 10 mg, oral, Daily piperacillin-tazobactam, 3.375 g, intravenous, q6h vancomycin, 1,000 mg, intravenous, q12h [7] [8] PRN medications: HYDROmorphone, HYDROmorphone, LORazepam, sodium chloride, zolpidem documented in this encounter Plan of Treatment Not on file documented as of this encounter Procedures Procedure Name Priority Date/Time Associated Diagnosis Comments CREATININE, SERUM Routine 07/13/2025 10: 28 PM EST VANCOMYCIN, TROUGH Timed 07/13/2025 10 :28 PM EST VANCOMYCIN, TROUGH Timed 07/12/2025 10 :06 AM EST CREATININE, SERUM Routine 07/11/2025 6:0 9 AM EST INSERT PICC LINE Routine 07/09/2025 9:12 PM EST VANCOMYCIN, TROUGH Timed 07/09/2025 10 :07 AM EST CBC WITH AUTO DIFFERENTIAL Routine 07/08/2025 6:02 AM EST CBC AND DIFFERENTIAL Routine 07/08/2025 6:02 AM EST MAGNESIUM Timed 07/08/2025 6:02 AM EST BASIC METABOLIC PANEL Routine 07/08/2025 6:02 AM EST VANCOMYCIN, TROUGH Timed 07/07/2025 10 :12 PM EST VAS US DUPLEX UPPER EXT VENOUS LEFT STAT 07/07/2025 5:38 PM EST Bacteremia CBC WITH AUTO DIFFERENTIAL Routine 07/07/2025 6:06 AM EST CBC AND DIFFERENTIAL Routine 07/07/2025 6:06 AM EST MAGNESIUM Timed 07/07/2025 6:06 AM EST BASIC METABOLIC PANEL Routine 07/07/2025 6:06 AM EST VANCOMYCIN, TROUGH Timed 07/06/2025 9: 51 AM EDT CO IMMUNOFIXATION ELECTROPHORESIS SERUM Routine 07/06/2025 5:46 AM EDT IMMUNOFIXATION ELECTROPHORESIS Routine 07/06/2025 5:46 AM EDT CO PROTEIN ELECTROPHORETIC FRACTIONATION & QUANTITATION SERUM Routine 07/06/2025 5:46 AM EDT CBC WITH AUTO DIFFERENTIAL Routine 07/06/2025 5:46 AM EDT HEMOGLOBIN ELECTROPHORESIS Routine 07/06/2025 5:46 AM EDT CBC AND DIFFERENTIAL Routine 07/06/2025 5:46 AM EDT IMMUNOFIXATION ELECTROPHORESIS Routine 07/06/2025 5:46 AM EDT IMMUNOGLOBULINS IGG, IGA, IGM Routine 07/06/2025 5:46 AM EDT PROTEIN ELECTROPHORESIS, SERUM Routine 07/06/2025 5:46 AM EDT PROTEIN, TOTAL Routine 07/06/2025 5:46 AM EDT MAGNESIUM Timed 07/06/2025 5:46 AM EDT IRON Routine 07/06/2025 5:46 AM EDT BASIC METABOLIC PANEL Routine 07/06/2025 5:46 AM EDT URINALYSIS WITH REFLEX MICROSCOPIC AND CULTURE Routine 07/05/2025 3:58 PM EDT SALAS URINE CULTURE TUBE Routine 07/05/20 3:58 PM EDT CHLAMYDIA TRACHOMATIS AND NEISSERIA GONORRHOEAE PCR Routine 07/05/2025 3:58 PM EDT URINALYSIS WITH REFLEX MICROSCOPIC AND CULTURE Routine 07/05/2025 3:58 PM EDT CULTURE URINE Routine 07/05/2025 3:58 PM EDT CULTURE BLOOD STAT 07/05/2025 11:20 AM EDT CULTURE BLOOD STAT 07/05/2025 11:00 AM EDT CBC WITH AUTO DIFFERENTIAL Routine 07/05/2025 6:36 AM EDT CBC AND DIFFERENTIAL Routine 07/05/2025 6:36 AM EDT MAGNESIUM Timed 07/05/2025 6:36 AM EDT LACTATE DEHYDROGENASE Add-On 07/05/2025 6:36 AM EDT HAPTOGLOBIN Add-On 07/05/2025 6:36 AM EDT HEPATIC FUNCTION PANEL Add-On 6:36 AM EDT BASIC METABOLIC PANEL Routine 07/05/2025 6:36 AM EDT AST, ALT, BILIRUBIN ELR STATE REPORTABLES Routine 07/04/2025 11:48 AM EDT HEPATITIS C VIRUS QUANTITATIVE PCR Routine 07/04/2025 11:48 AM EDT CBC WITH AUTO DIFFERENTIAL Routine 07/04/2025 8:45 AM EDT CBC AND DIFFERENTIAL Routine 07/04/2025 8:45 AM EDT MAGNESIUM Timed 07/04/2025 8:45 AM EDT VANCOMYCIN, TROUGH Timed 07/04/2025 8: 45 AM EDT BASIC METABOLIC PANEL Routine 07/04/2025 8:45 AM EDT CULTURE BLOOD STAT 2025 2:28 PM EDT BLOOD CULTURE PATHOGENS BY PCR Routine 2025 1:35 PM EDT CULTURE BLOOD STAT 2025 1:35 PM EDT HEPATITIS C ANTIBODY Add-On 2025 6:10 AM EDT HIV 1, 2 ANTIBODY, P24 ANTIGEN WITH REFLEX TO DIFFERENTIATION Add-On 2025 6:10 AM EDT HEPATITIS B SURFACE ANTIGEN WITH CONFIRMATION Add-On 2025 6:10 AM EDT AST, ALT, BILIRUBIN ELR STATE REPORTABLES Routine 2025 6:10 AM EDT CBC WITH AUTO DIFFERENTIAL Routine 2025 6:10 AM EDT CBC AND DIFFERENTIAL Routine 2025 6:10 AM EDT MAGNESIUM Timed 2025 6:10 AM EDT BASIC METABOLIC PANEL Routine 2025 6:10 AM EDT TRANSFUSE RED BLOOD CELLS Routine 2025 2:07 AM EDT PREPARE RBC Routine 07/02/2025 8:35 PM EDT C-REACTIVE PROTEIN Add-On 07/02/2025 8: 17 PM EDT COMPREHENSIVE METABOLIC PANEL STAT 07/02/2025 8:17 PM EDT CBC WITH AUTO DIFFERENTIAL STAT 07/02/2025 7:35 PM EDT CULTURE BLOOD STAT 07/02/2025 7:35 PM EDT CBC AND DIFFERENTIAL STAT 07/02/2025 7:35 PM EDT documented in this encounter Results * Creatinine serum (07/13/2025 10:28 PM EST) Creatinine 0.74 0.50 - 1.10 mg/dL LAB CHEMISTRY METHOD 07/13/2025 10:59 PM EST [facility] eGFR 100 >=60 mL/min/1. 73m2 LAB CHEMISTRY METHOD 07/13/2025 10:59 PM EST [facility] Comment:Calculation based on the Chronic Kidney Disease Epidemiology Collaboration (CKD-EPI) equation refit without adjustment for race. Blood Venous blood specimen / Unknown Venipuncture / Unknown 07/13/2025 10:28 PM EST 07/13/2025 10:37 PM EST us Prabhjot Neely MD LAB BLOOD ORDERABLES Final Resul t Performing Organization Address City/[facility]/ZIP Co de Phone Number [facility] [address] [place] [address], [place] [phone] * Vancomycin, trough New vanco trough prior to dose. (07/13/2025 10:28 PM EST) Vancomycin Trough 14.8 10.0 - 20.0 mcg/mL LAB CHEMISTRY METHOD 07/13/2025 10:59 PM EST [facility] Blood Venous blood specimen / Unknown Venipuncture / Unknown 07/13/2025 10:28 PM EST 07/13/2025 10:37 PM EST us Prabhjot Neely MD LAB BLOOD ORDERABLES Final Resul t Performing Organization Address [facility]/ZIP Co de Phone Number [facility] [address] [place] [address], [place] [phone] * Vancomycin, trough Please draw prior to 11am dose (07/12/2025 10:06 AM EST) Vancomycin Trough 14.1 10.0 - 20.0 mcg/mL LAB CHEMISTRY METHOD 07/12/2025 10:48 AM EST [facility] Blood Venous blood specimen / Unknown Venipuncture / Unknown 07/12/2025 10:06 AM EST 07/12/2025 10:13 AM EST us Prabhjot Neely MD LAB BLOOD ORDERABLES Final Resul t Performing Organization Address [facility] Co de Phone Number [facility] [address] [place] [address], * Creatinine serum (07/11/2025 6:09 AM EST) Creatinine 0.66 0.50 - 1.10 mg/dL LAB CHEMISTRY METHOD 07/11/2025 7:27 AM EST [facility] eGFR 108 >=60 mL/min/1. 73m2 LAB CHEMISTRY METHOD 07/11/2025 7:27 AM EST [facility] Comment:Calculation based on the Chronic Kidney Disease Epidemiology Collaboration (CKD-EPI) equation refit without adjustment for race. Blood Venous blood specimen / Unknown Venipuncture / Unknown 07/11/2025 6:09 AM EST 07/11/2025 6:32 AM EST Prabhjot Neely MD LAB BLOOD ORDERABLES Final Resul t Performing Organization Address [facility] Co de Phone Number [facility] [address] [place] [address], * Insert PICC line (07/09/2025 9:12 PM EST) Narrative Kathy Garcia RN - 07/09/2025 9:12 PM EST Kathy Garcia RN 07/09/2025 9:16 PM PICC Line Insertion Procedure Note Procedure: Insertion of 4F single lumen Bard PowerPICC Lot: [id number] Exp: [id number] Indications: Vancomycin IV until08/30/25 Procedure Details: Informed consent was obtained for the procedure. Risks of thrombus and infection were discussed. Pre-procedure checklist completed at bedside. Maximum sterile technique was used including antiseptics, cap, gloves, gown, hand hygiene, mask, and sheet. US guidance utilized, vein easily accessed and catheter advanced smoothly upon first attempt. Two wires intact and discarded. 1% Lidocaine 2 ml sc administered. 4F PICC inserted to the Right Basilic vein per hospital protocol. Flushes smoothly with good blood return. Findings: Catheter cut at 38 cm and inserted to 38 cm with 0 cm exposed. Mid upper arm circumference is 24 cm. There were no changes to vital signs. Catheter was flushed with 10 cc NS and sterile CVC dressing with Biopatch applied. Patient did tolerate procedure well. Recommendations: 3cg confirmation obtained: Tip at cavoatrial junction/May use line PICC Brochure given to patient with teaching instruction. Prabhjot Neely MD IV THERAPY ORDERABLES Final Resu lt * Vancomycin, trough Please draw before 1100 dose (07/09/2025 10:07 AM EST) Pathologist [facility] Vancomycin Trough 16.7 10.0 - 20.0 mcg/mL LAB CHEMISTRY METHOD 07/09/2025 10:[address] [facility] Blood Venous blood specimen / Unknown Venipuncture / Unknown 07/09/2025 10:07 AM EST 07/09/2025 10:17 AM EST Tu BURKS LAB BLOOD ORDERABLES Final Resu lt [facility] [address] [place] [address], [place] [phone] * (ABNORMAL) CBC auto differential (07/08/2025 6:02 AM EST) Pathologist [facility] WBC 5.1 4.8 - 10.8 K/mcL LAB HEMETOLOGY METHOD 07/08/2025 6:[address] [facility] RBC 3.70(L) 3.80 - 4.80 M/[facility] LAB HEMETOLOGY METHOD 07/08/2025 6:[address] [facility] Hemoglobin 7.6(L) 11.5 - 16.0 g/dL LAB HEMETOLOGY METHOD 07/08/2025 6:[address] [facility] Hematocrit 26.7(L) 35.0 - 47.0 % LAB HEMETOLOGY METHOD 07/08/2025 6:[address] [facility] MCV 72.8(L) 79.0 - 98.0 FL LAB HEMETOLOGY METHOD 07/08/2025 6:[address] [facility] MCH 20.7(L) 27.0 - 32.0 pcg LAB HEMETOLOGY METHOD 07/08/2025 6:[address] [facility] MCHC 28.5(L) 32.0 - 37.0 g/dL LAB HEMETOLOGY METHOD 07/08/2025 6:[address] [facility] RDW 21.8(H) 11.0 - 15.0 % LAB HEMETOLOGY METHOD 07/08/2025 6:[address] [facility] Platelets 314 130 - 400 K/mcL LAB HEMETOLOGY METHOD 07/08/2025 6:[address] [facility] MPV 9.8 7.0 - 11.0 FL LAB HEMETOLOGY METHOD 07/08/2025 6:[address] [facility] NRBC 0.0 <1.0 % LAB HEMETOLOGY METHOD 07/08/2025 6:[address] [facility] NRBC Absolute 0.00 <0.10 K/mcL LAB HEMETOLOGY METHOD 07/08/2025 6:[address] [facility] Neutrophils Relative 57.9 % LAB HEMETOLOGY METHOD 07/08/2025 6:[address] [facility] Lymphocytes Relative 28.3 % LAB HEMETOLOGY METHOD 07/08/2025 6:[address] [facility] Monocytes Relative 7.9 % LAB HEMETOLOGY METHOD 07/08/2025 6:[address] [facility] Eosinophils Relative 4.1 % LAB HEMETOLOGY METHOD 07/08/2025 6:[address] [facility] Basophils Relative 1.4 % LAB HEMETOLOGY METHOD 07/08/2025 6:53 AM EST [facility] Immature Granulocytes Relative 0.4 % LAB HEMETOLOGY METHOD 07/08/2025 6:53 AM EST [facility] Neutrophils Absolute 2.94 1.50 - 7.00 K/[facility] LAB HEMETOLOGY METHOD 07/08/2025 6:[address] [facility] Lymphocytes Absolute 1.44 1.00 - 5.00 K/[facility] LAB HEMETOLOGY METHOD 07/08/2025 6:[address] [facility] Monocytes Absolute 0.40 0.20 - 1.00 K/[facility] LAB HEMETOLOGY METHOD 07/08/2025 6:53 AM EST [facility] Eosinophils Absolute 0.21 0.00 - 0.50 K/[facility] LAB HEMETOLOGY METHOD 07/08/2025 6:[address] [facility] Basophils Absolute 0.07 0.00 - 0.20 K/mcL LAB HEMETOLOGY METHOD 07/08/2025 6:53 AM EST [facility] Immature Granulocytes Absolute 0.02 0.00 - 0.03 K/[facility] LAB HEMETOLOGY METHOD 07/08/2025 6:[address] [facility] Blood Venous blood specimen / Unknown Venipuncture / Unknown 07/08/2025 6:02 AM EST 07/08/2025 6:31 AM EST Gwendolyn BURKS LAB BLOOD ORDERABLES Final Result [facility] [address] [place] [address], * Magnesium (07/08/2025 6:02 AM EST) Magnesium 2.2 1.9 - 2.6 mg/dL LAB CHEMISTRY METHOD 07/08/2025 7:19 AM EST [facility] Blood Venous blood specimen / Unknown Venipuncture / Unknown 07/08/2025 6:02 AM EST 07/08/2025 6:31 AM EST Gwendolyn BURKS LAB BLOOD ORDERABLES Final Result [facility] [address] [place] [address], [place] [phone] * Basic metabolic panel (07/08/2025 6:02 AM EST) Sodium 140 133 - 145 mmol/L LAB CHEMISTRY METHOD 07/08/2025 7:[address] [facility] Potassium 3.8 3.5 - 5.5 mmol/L LAB CHEMISTRY METHOD 07/08/2025 7:[address] [facility] Chloride 108 96 - 110 mmol/L LAB CHEMISTRY METHOD 07/08/2025 7:[address] [facility] CO2 27 21 - 32 mmol/L LAB CHEMISTRY METHOD 07/08/2025 7:[address] [facility] Anion Gap 5 3 - 11 LAB CHEMISTRY METHOD 07/08/2025 7:[address] [facility] Glucose 84 70 - 100 mg/dL LAB CHEMISTRY METHOD 07/08/2025 7:[address] [facility] BUN 22 5 - 25 mg/dL LAB CHEMISTRY METHOD 07/08/2025 7:[address] [facility] Creatinine 0.81 0.50 - 1.10 mg/dL LAB CHEMISTRY METHOD 07/08/2025 7:[address] [facility] eGFR 90 >=60 mL/min/1. 73m2 LAB CHEMISTRY METHOD 07/08/2025 7:[address] [facility] Comment:Calculation based on the Chronic Kidney Disease Epidemiology Collaboration (CKD-EPI) equation refit without adjustment for race. BUN/Creatinine Ratio 27.2 LAB CHEMISTRY METHOD 07/08/2025 7:[address] [facility] Calcium 8.9 8.5 - 10.5 mg/dL LAB CHEMISTRY METHOD 07/08/2025 7:19 AM EST [facility] Blood Venous blood specimen / Unknown Venipuncture / Unknown 07/08/2025 6:02 AM EST 07/08/2025 6:31 AM EST Gwendolyn BURKS LAB BLOOD ORDERABLES Final Result Performing Organization Address [facility]/ZIP Co de Phone Number [facility] [address] [place] [address], [place] [phone] * Vancomycin, trough Please draw between 2200 and 2230. Thank you!. (07/07/2025 10:12 PM EST) Vancomycin Trough 15.4 10.0 - 20.0 mcg/mL LAB CHEMISTRY METHOD 07/07/2025 10:43 PM EST [facility] Blood Venous blood specimen / Unknown Venipuncture / Unknown 07/07/2025 10:12 PM EST 07/07/2025 10:18 PM EST Tu BURKS LAB BLOOD ORDERABLES Final Resu lt Performing Organization Address [facility] Co de Phone Number [facility] [address] [place] [address], [place] [phone] * Vascular US duplex upper extremity venous left (07/07/2025 5:38 PM EST) Anatomical Region Laterality Modality Vascular, Abdomen Ultrasound 07/07/2025 6:19 PM EST Impressions 07/07/2025 6:19 PM EST 1. Negative for left upper extremity deep vein thrombosis. 2. Superficial thrombophlebitis of cephalic vein at mid segment. This document has been electronically signed by: Arina Burt MD on 07/07/2025 18:19:19 Narrative 07/07/2025 6:19 PM EST INDICATION: Superficial Thrombophlebitis of the Arm Venous duplex ultrasound left upper extremity Comparison: None provided Findings: Accessible deep venous segments are fully compressible with normal Doppler color flow and spectral tracings. Intraluminal echoes and noncompressibility in mid aspect of the cephalic vein, consistent with superficial thrombophlebitis. Procedure Note Arina Burt MD - 07/07/2025 INDICATION: Superficial Thrombophlebitis of the Arm Venous duplex ultrasound left upper extremity Comparison: None provided Findings: Accessible deep venous segments are fully compressible with normalDoppler color flow and spectral tracings. Intraluminal echoes and noncompressibility in mid aspect of the cephalic vein, consistent with superficial thrombophlebitis. IMPRESSION: 1. Negative for left upper extremity deep vein thrombosis. 2. Superficial thrombophlebitis of cephalic vein at mid segment. This document has been electronically signed by: Arina Burt MD on 07/07/2025 18:19:19 Gwendolyn BURKS CV VASCULAR PROCEDURES Fin al Result * (ABNORMAL) CBC auto differential (07/07/2025 6:06 AM EST) [facility] WBC 5.0 4.8 - 10.8 K/mcL LAB HEMETOLOGY METHOD 07/07/2025 7:[address] [facility] RBC 3.80 3.80 - 4.80 M/mcL LAB HEMETOLOGY METHOD 07/07/2025 7:[address] [facility] Hemoglobin 7.9(L) 11.5 - 16.0 g/dL LAB HEMETOLOGY METHOD 07/07/2025 7:[address] [facility] Hematocrit 27.5(L) 35.0 - 47.0 % LAB HEMETOLOGY METHOD 07/07/2025 7:[address] [facility] MCV 72.6(L) 79.0 - 98.0 FL LAB HEMETOLOGY METHOD 07/07/2025 7:[address] [facility] MCH 20.8(L) 27.0 - 32.0 pcg LAB HEMETOLOGY METHOD 07/07/2025 7:[address] [facility] MCHC 28.7(L) 32.0 - 37.0 g/dL LAB HEMETOLOGY METHOD 07/07/2025 7:[address] [facility] RDW 21.4(H) 11.0 - 15.0 % LAB HEMETOLOGY METHOD 07/07/2025 7:[address] [facility] Platelets 358 130 - 400 K/mcL LAB HEMETOLOGY METHOD 07/07/2025 7:[address] [facility] MPV 9.7 7.0 - 11.0 FL LAB HEMETOLOGY METHOD 07/07/2025 7:[address] [facility] NRBC 0.0 <1.0 % LAB HEMETOLOGY METHOD 07/07/2025 7:[address] [facility] NRBC Absolute 0.00 <0.10 K/mcL LAB HEMETOLOGY METHOD 07/07/2025 7:[address] [facility] Neutrophils Relative 57.7 % LAB HEMETOLOGY METHOD 07/07/2025 7:[address] [facility] Lymphocytes Relative 27.4 % LAB HEMETOLOGY METHOD 07/07/2025 7:[address] [facility] Monocytes Relative 8.9 % LAB HEMETOLOGY METHOD 07/07/2025 7:[address] [facility] Eosinophils Relative 5.2 % LAB HEMETOLOGY METHOD 07/07/2025 7:[address] [facility] Basophils Relative 0.6 % LAB HEMETOLOGY METHOD 07/07/2025 7:[address] [facility] Immature Granulocytes Relative 0.2 % LAB HEMETOLOGY METHOD 07/07/2025 7:[address] [facility] Neutrophils Absolute 2.91 1.50 - 7.00 K/mcL LAB HEMETOLOGY METHOD 07/07/2025 7:[address] [facility] Lymphocytes Absolute 1.38 1.00 - 5.00 K/mcL LAB HEMETOLOGY METHOD 07/07/2025 7:16 AM EST [facility] Monocytes Absolute 0.45 0.20 - 1.00 K/[facility] LAB HEMETOLOGY METHOD 07/07/2025 7:16 AM EST [facility] Eosinophils Absolute 0.26 0.00 - 0.50 K/[facility] LAB HEMETOLOGY METHOD 07/07/2025 7:16 AM EST [facility] Basophils Absolute 0.03 0.00 - 0.20 K/[facility] LAB HEMETOLOGY METHOD 07/07/2025 7:16 AM EST [facility] Immature Granulocytes Absolute 0.01 0.00 - 0.03 K/[facility] LAB HEMETOLOGY METHOD 07/07/2025 7:16 AM EST [facility] Blood Venous blood specimen / Unknown Venipuncture / Unknown 07/07/2025 6:06 AM EST 07/07/2025 6:47 AM EST Gwendolyn Sanchez [place] LAB BLOOD ORDERABLES Final Result [facility] [address] [place] [address], * Magnesium (07/07/2025 6:06 AM EST) Magnesium 2.3 1.9 - 2.6 mg/dL LAB CHEMISTRY METHOD 07/07/2025 7:37 AM EST [facility] Blood Venous blood specimen / Unknown Venipuncture / Unknown 07/07/2025 6:06 AM EST 07/07/2025 6:47 AM EST Gwendolyn Sanchez [place] LAB BLOOD ORDERABLES Final Result [facility] [address] [place] [address], [place] [phone] * Basic metabolic panel (07/07/2025 6:06 AM EST) Sodium 139 133 - 145 mmol/L LAB CHEMISTRY METHOD 07/07/2025 7:[address] [facility] Potassium 4.0 3.5 - 5.5 mmol/L LAB CHEMISTRY METHOD 07/07/2025 7:[address] [facility] Chloride 106 96 - 110 mmol/L LAB CHEMISTRY METHOD 07/07/2025 7:[address] [facility] CO2 30 21 - 32 mmol/L LAB CHEMISTRY METHOD 07/07/2025 7:[address] [facility] Anion Gap 3 3 - 11 LAB CHEMISTRY METHOD 07/07/2025 7:[address] [facility] Glucose 87 70 - 100 mg/dL LAB CHEMISTRY METHOD 07/07/2025 7:[address] [facility] BUN 18 5 - 25 mg/dL LAB CHEMISTRY METHOD 07/07/2025 7:[address] [facility] Creatinine 0.78 0.50 - 1.10 mg/dL LAB CHEMISTRY METHOD 07/07/2025 7:[address] [facility] eGFR 94 >=60 mL/min/1. 73m2 LAB CHEMISTRY METHOD 07/07/2025 7:[address] [facility] Comment:Calculation based on the Chronic Kidney Disease Epidemiology Collaboration (CKD-EPI) equation refit without adjustment for race. BUN/Creatinine Ratio 23.1 LAB CHEMISTRY METHOD 07/07/2025 7:[address] [facility] Calcium 9.0 8.5 - 10.5 mg/dL LAB CHEMISTRY METHOD 07/07/2025 7:[address] [facility] Blood Venous blood specimen / Unknown Venipuncture / Unknown 07/07/2025 6:06 AM EST 07/07/2025 6:47 AM EST Gwendolyn BURKS LAB BLOOD ORDERABLES Final Result Performing Organization Address City/[facility]/ZIP Co de Phone Number [facility] [address] [place] [address], [place] [phone] * (ABNORMAL) Vancomycin, trough Please draw prior to 11 am dose. (07/06/2025 9:51 AM EDT) Vancomycin Trough 21.1(H) 10.0 - 20.0 mcg/mL LAB CHEMISTRY METHOD 07/06/2025 10:36 AM EDT [facility] Blood Venous blood specimen / Unknown Venipuncture / Unknown 07/06/2025 9:51 AM EDT 07/06/2025 10:00 AM EDT Julianna Orozco MD LAB BLOOD ORDERABLES Final Resul t Performing Organization Address [facility]/ZIP Co de Phone Number [facility] [address] [place] [address], [place] [phone] * Pathologist Review Immunofixation (07/06/2025 5:46 AM EDT) Pathologist Interpretation Mabel Lawrence MD 07/08/2025 2:48 PM EST [facility] Blood Venous blood specimen / Unknown Venipuncture / Unknown 07/06/2025 5:46 AM EDT 07/06/2025 6:34 AM EDT Prabhjot Neely MD LAB BLOOD ORDERABLES Final Resul t Performing Organization Address City/[facility]/ZIP Co de Phone Number [facility] [address] [place] [address], [place] [phone] * PATHOLOGIST REVIEW PROTEIN ELECTROPHORESIS (07/06/2025 5:46 AM EDT) Pathologist Interpretation Mabel Lawrence MD 07/08/2025 2:48 PM EST [facility] Blood Venous blood specimen / Unknown Venipuncture / Unknown 07/06/2025 5:46 AM EDT 07/06/2025 6:34 AM EDT Gwendolyn BURKS LAB BLOOD ORDERABLES Final Result Performing Organization Address [facility] de Phone Number [facility] [address] [place] [address], [place] [phone] * (ABNORMAL) Immunoglobulins IgG, IgA, IgM (07/06/2025 5:46 AM EDT) Total IgG 2,240(H) 549 - 1,584 mg/dL LAB CHEMISTRY METHOD 07/08/2025 11:[address] [facility] IgA 308 61 - 348 mg/dL LAB CHEMISTRY METHOD 07/08/2025 11:[address] [facility] IgM 255 23 - 259 mg/dL LAB CHEMISTRY METHOD 07/08/2025 11:[address] [facility] Blood Venous blood specimen / Unknown Venipuncture / Unknown 07/06/2025 5:46 AM EDT 07/06/2025 6:34 AM EDT Prabhjot Neely MD LAB BLOOD ORDERABLES Final Resul t Performing Organization Address [facility] Co de Phone Number [facility] [address] [place] [address], [place] [phone] * Immunofixation electrophoresis serum (07/06/2025 5:46 AM EDT) Immunofixation Result, Serum IgG Lambda monoclonal immunoglobulins detected. LAB CHEMISTRY METHOD 07/08/2025 2:[address] [facility] Blood Venous blood specimen / Unknown Venipuncture / Unknown 07/06/2025 5:46 AM EDT 07/06/2025 6:34 AM EDT us Prabhjot Neely MD LAB BLOOD ORDERABLES Final Resul t [facility] [address] [place] [address], [place] [phone] * Protein, total (07/06/2025 5:46 AM EDT) Pathologist [facility] Total Protein 7.4 6.0 - 8.0 g/dL LAB CHEMISTRY METHOD 07/06/2025 7:47 AM EDT [facility] Blood Venous blood specimen / Unknown Venipuncture / Unknown 07/06/2025 5:46 AM EDT 07/06/2025 6:34 AM EDT Gwendolyn BURKS LAB BLOOD ORDERABLES Final Result Performing Organization Address City/[facility]/ZIP Co de Phone Number [facility] [address] [place] [address], [place] [phone] * (ABNORMAL) CBC auto differential (07/06/2025 5:46 AM EDT) [facility] WBC 5.1 4.8 - 10.8 K/[facility] LAB HEMETOLOGY METHOD 07/06/2025 6:57 AM EDT [facility] RBC 4.00 3.80 - 4.80 M/[facility] LAB HEMETOLOGY METHOD 07/06/2025 6:57 AM EDT [facility] Hemoglobin 8.1(L) 11.5 - 16.0 g/dL LAB HEMETOLOGY METHOD 07/06/2025 6:57 AM EDT [facility] Hematocrit 28.4(L) 35.0 - 47.0 % LAB HEMETOLOGY METHOD 07/06/2025 6:57 AM EDT [facility] MCV 71.5(L) 79.0 - 98.0 FL LAB HEMETOLOGY METHOD 07/06/2025 6:57 AM EDT [facility] MCH 20.4(L) 27.0 - 32.0 pcg LAB HEMETOLOGY METHOD 07/06/2025 6:57 AM T [facility] MCHC 28.5(L) 32.0 - 37.0 g/dL LAB HEMETOLOGY METHOD 07/06/2025 6:57 AM [facility] RDW 20.7(H) 11.0 - 15.0 % LAB HEMETOLOGY METHOD 07/06/2025 6:57 AM [facility] Platelets 404(H) 130 - 400 K/mcL LAB HEMETOLOGY METHOD 07/06/2025 6:57 AM [facility] MPV 9.4 7.0 - 11.0 FL LAB HEMETOLOGY METHOD 07/06/2025 6:57 AM [facility] NRBC 0.0 <1.0 % LAB HEMETOLOGY METHOD 07/06/2025 6:57 AM [facility] NRBC Absolute 0.00 <0.10 K/mcL LAB HEMETOLOGY METHOD 07/06/2025 6:57 AM [facility] Neutrophils Relative 57.9 % LAB HEMETOLOGY METHOD 07/06/2025 6:57 AM [facility] Lymphocytes Relative 28.2 % LAB HEMETOLOGY METHOD 07/06/2025 6:57 AM [facility] Monocytes Relative 7.6 % LAB HEMETOLOGY METHOD 07/06/2025 6:57 AM [facility] Eosinophils Relative 5.1 % LAB HEMETOLOGY METHOD 07/06/2025 6:57 AM [facility] Basophils Relative 1.0 % LAB HEMETOLOGY METHOD 07/06/2025 6:57 AM [facility] Immature Granulocytes Relative 0.2 % LAB HEMETOLOGY METHOD 07/06/2025 6:57 AM EDT [facility] Neutrophils Absolute 2.95 1.50 - 7.00 K/[facility] LAB HEMETOLOGY METHOD 07/06/2025 6:57 AM EDT [facility] Lymphocytes Absolute 1.44 1.00 - 5.00 K/mcL LAB HEMETOLOGY METHOD 07/06/2025 6:57 AM EDT [facility] Monocytes Absolute 0.39 0.20 - 1.00 K/[facility] LAB HEMETOLOGY METHOD 07/06/2025 6:57 AM EDT [facility] Eosinophils Absolute 0.26 0.00 - 0.50 K/[facility] LAB HEMETOLOGY METHOD 07/06/2025 6:57 AM EDT [facility] Basophils Absolute 0.05 0.00 - 0.20 K/mcL LAB HEMETOLOGY METHOD 07/06/2025 6:57 AM EDT [facility] Immature Granulocytes Absolute 0.01 0.00 - 0.03 K/[facility] LAB HEMETOLOGY METHOD 07/06/2025 6:57 AM EDT [facility] Blood Venous blood specimen / Unknown Venipuncture / Unknown 07/06/2025 5:46 AM EDT 07/06/2025 6:35 AM EDT Gwendolyn BURKS LAB BLOOD ORDERABLES Final Result [facility] [address] [place] [address], * (ABNORMAL) Hemoglobin electrophoresis (07/06/2025 5:46 AM EDT) Hemoglobin A1 98.0(H) 96.5 - 97.8 % 07/08/2025 11:27 AM EST [facility] Hemoglobin A2 2.0(L) 2.2 - 3.2 % 07/08/2025 11:27 AM EST [facility] Hemoglobin F 0.0 <2.0 % 07/08/2025 11:27 AM EST [facility] Hemoglobin S 0.0 0.0 % 07/08/2025 11:27 AM EST [facility] Hemoglobin C 0.0 0.0 % 07/08/2025 11:27 AM EST [facility] Interpretation See Below 07/08/2025 11:27 AM EST [facility] Comment: No abnormal hemoglobin variants seen on hemoglobin electrophoresis. Hemoglobin A2 is decreased. Common causes include, but are not limited to, iron deficiency, alpha thalassemia, and delta thalassemia. Test performed at [facility], [address] , [place] [address] Magy Concepcion MD, PhD - Director Network Development Blood Venous blood specimen / Unknown Venipuncture / Unknown 07/06/2025 5:46 AM EDT 07/06/2025 6:35 AM EDT Gwendolyn Sanchez [place] LAB BLOOD ORDERABLES Final Result Performing Organization Address City/[facility]/ZIP Co de Phone Number [facility] [address] [place] [address] * (ABNORMAL) Iron (07/06/2025 5:46 AM EDT) [facility] Iron 32(L) 40 - 150 mcg/dL LAB CHEMISTRY METHOD 07/06/2025 7:45 AM EDT [facility] Comment:Results verified by repeat testing Blood Venous blood specimen / Unknown Venipuncture / Unknown 07/06/2025 5:46 AM EDT 07/06/2025 6:34 AM EDT Gwendolynsammy Sanchez [place] LAB BLOOD ORDERABLES Final Result [facility] [address] [place] [address], * (ABNORMAL) Protein electrophoresis, serum (07/06/2025 5:46 AM EDT) [facility] Total Protein 7.4 6.0 - 8.0 g/dL LAB CHEMISTRY METHOD 07/08/2025 2:[address] [facility] Albumin, Serum 2.7(L) 2.9 - 4.1 g/dL LAB CHEMISTRY METHOD 07/08/2025 2:[address] [facility] Alpha 1 Globulin (g/dL) 0.4 0.1 - 0.5 g/dL LAB CHEMISTRY METHOD 07/08/2025 2:[address] [facility] Alpha 2 Globulin (g/dL) 1.0 0.7 - 1.5 g/dL LAB CHEMISTRY METHOD 07/08/2025 2:[address] [facility] Beta (g/dL) 1.0 0.7 - 1.5 g/dL LAB CHEMISTRY METHOD 07/08/2025 2:[address] [facility] Gamma Globulin (g/dL) 2.4(H) 0.7 - 1.9 g/dL LAB CHEMISTRY METHOD 07/08/2025 2:[address] [facility] SPEP Interpretation Monoclonal gammopathy Abnormal pattern with immeasurable M-spike of gamma globulin mobility. Serum Immunofixation performed on this specimen demonstrated IgG Lambda monoclonal protein. LAB CHEMISTRY METHOD 07/08/2025 2:[address] [facility] Blood Venous blood specimen / Unknown Venipuncture / Unknown 07/06/2025 5:46 AM EDT 07/06/2025 6:34 AM EDT Gwendolyn BURKS LAB BLOOD ORDERABLES Final Result [facility] [address] [place] [address], * Magnesium (07/06/2025 5:46 AM EDT) Magnesium 2.3 1.9 - 2.6 mg/dL LAB CHEMISTRY METHOD 07/06/2025 7:33 AM EDT [facility] Blood Venous blood specimen / Unknown Venipuncture / Unknown 07/06/2025 5:46 AM EDT 07/06/2025 6:34 AM EDT Gwendolyn BURKS LAB BLOOD ORDERABLES Final Result [facility] [address] [place] [address], * Basic metabolic panel (07/06/2025 5:46 AM EDT) Sodium 140 133 - 145 mmol/L LAB CHEMISTRY METHOD 07/06/2025 7:33 AM [facility] Potassium 4.4 3.5 - 5.5 mmol/L LAB CHEMISTRY METHOD 07/06/2025 7:33 AM [facility] Chloride 108 96 - 110 mmol/L LAB CHEMISTRY METHOD 07/06/2025 7:33 AM [facility] CO2 29 21 - 32 mmol/L LAB CHEMISTRY METHOD 07/06/2025 7:33 AM [facility] Anion Gap 3 3 - 11 LAB CHEMISTRY METHOD 07/06/2025 7:33 AM [facility] Glucose 88 70 - 100 mg/dL LAB CHEMISTRY METHOD 07/06/2025 7:33 AM [facility] BUN 13 5 - 25 mg/dL LAB CHEMISTRY METHOD 07/06/2025 7:33 AM [facility] Creatinine 0.63 0.50 - 1.10 mg/dL LAB CHEMISTRY METHOD 07/06/2025 7:33 AM [facility] eGFR 110 >=60 mL/min/1. 73m2 LAB CHEMISTRY METHOD 07/06/2025 7:33 AM [facility] Comment:Calculation based on the Chronic Kidney Disease Epidemiology Collaboration (CKD-EPI) equation refit without adjustment for race. BUN/Creatinine Ratio 20.6 LAB CHEMISTRY METHOD 07/06/2025 7:33 AM EDT [facility] Calcium 8.9 8.5 - 10.5 mg/dL LAB CHEMISTRY METHOD 07/06/2025 7:33 AM EDT [facility] Blood Venous blood specimen / Unknown Venipuncture / Unknown 07/06/2025 5:46 AM EDT 07/06/2025 6:34 AM EDT us Gwendolyn BURKS LAB BLOOD ORDERABLES Final Result [facility] [address] [place] [address], [place] [phone] * Culture urine (07/05/2025 3:58 PM EDT) Culture, Urine No growth 07/06/2025 1:27 PM EDT [facility] Urine Urine specimen obtained by clean catch procedure / Unknown Non-blood Collection / Unknown 07/05/2025 3:58 PM EDT 07/05/2025 4:31 PM EDT us Gwendolyn WILEY MICROBIOLOGY - GENERAL ORDERABLES Final Result [facility] [address] [place] [address], [place] [phone] * Salas urine culture tube (07/05/2025 3:58 PM EDT) Extra Tube Hold for add-ons. 07/05/2025 6:02 PM EDT [facility] Comment:Auto resulted. Urine Urine specimen obtained by clean catch procedure / Unknown Non-blood Collection / Unknown 07/05/2025 3:58 PM EDT 07/05/2025 4:04 PM EDT us Gwendolyn A Lookner PA LAB URINE ORDERABLES Final Result [facility] [address] [place] [address], [place] [phone] * (ABNORMAL) Urinalysis with reflex microscopic and culture (07/05/2025 3:58 PM EDT) Specific [place] Urine 1.009 1.003 - 1.030 LAB URINALYSIS - AUTOMATED METHOD 07/05/2025 4:31 PM [facility] pH, Urine 7.5 5.0 - 8.0 pH LAB URINALYSIS - AUTOMATED METHOD 07/05/2025 4:31 PM [facility] Leukocytes, Urine Trace(A) Negative LAB URINALYSIS - AUTOMATED METHOD 07/05/2025 4:31 PM [facility] Nitrite, Urine Negative Negative LAB URINALYSIS - AUTOMATED METHOD 07/05/2025 4:31 PM [facility] Protein, Urine Negative <=Trace mg/dL LAB URINALYSIS - AUTOMATED METHOD 07/05/2025 4:31 PM [facility] Glucose, Urine Negative Negative mg/dL LAB URINALYSIS - AUTOMATED METHOD 07/05/2025 4:31 PM [facility] Ketones, Urine Negative Negative mg/dL LAB URINALYSIS - AUTOMATED METHOD 07/05/2025 4:31 PM [facility] Urobilinogen, Urine 0.2 0.2 - 1.0 mg/dL LAB URINALYSIS - AUTOMATED METHOD 07/05/2025 4:31 PM [facility] Bilirubin, Urine Negative Negative LAB URINALYSIS - AUTOMATED METHOD 07/05/2025 4:31 PM [facility] Blood, Urine Negative Negative LAB URINALYSIS - AUTOMATED METHOD 07/05/2025 4:31 PM [facility] RBC, Urine 3.3 0 - 4 /HPF LAB URINALYSIS - AUTOMATED METHOD 07/05/2025 4:31 PM EDT [facility] WBC, Urine 1.8 0 - 4 /HPF LAB URINALYSIS - AUTOMATED METHOD 07/05/2025 4:31 PM EDT [facility] Squamous Epithelial, Urine 9 0 - 60 /LPF LAB URINALYSIS - AUTOMATED METHOD 07/05/2025 4:31 PM EDT [facility] Bacteria, Urine Negative Negative /HPF LAB URINALYSIS - AUTOMATED METHOD 07/05/2025 4:31 PM EDT [facility] Hyaline Casts, Urine 0.0 0 - 3 /LPF LAB URINALYSIS - AUTOMATED METHOD 07/05/2025 4:31 PM EDT [facility] Urine Urine specimen obtained by clean catch procedure / Unknown Non-blood Collection / Unknown 07/05/2025 3:58 PM EDT 07/05/2025 4:04 PM EDT us Gwendolyn BURKS LAB URINE ORDERABLES Final Result [facility] [address] [place] [address], [place] [phone] * Chlamydia trachomatis and Neisseria gonorrhoeae molecular study (07/05/2025 3:58 PM EDT) Neisseria gonorrhoeae PCR Negative Negative LAB MOLECULAR DIAGNOSTICS METHOD 07/06/2025 10:01 AM EDT [facility] Chlamydia trachomatis PCR Negative Negative LAB MOLECULAR DIAGNOSTICS METHOD 07/06/2025 10:01 AM EDT [facility] Urine Urine specimen obtained by clean catch procedure / Unknown Non-blood Collection / Unknown 07/05/2025 3:58 PM EDT 07/05/2025 4:04 PM EDT us Gwendolyn BURKS LAB MICROBIOLOGY - GENERAL ORDERABLES Final Result [facility] [address] [place] [address], [place] [phone] * Culture blood (07/05/2025 11:20 AM EDT) Culture, Blood No growth at 5 days 07/10/2025 11:01 AM EST [facility] Blood Venous blood specimen / Unknown Venipuncture / Unknown 07/05/2025 11:20 AM EDT 07/05/2025 11:42 AM EDT us Gwendolyn BURKS LAB MICROBIOLOGY - GENERAL ORDERABLES Final Result Performing Organization Address City/[facility]/ZIP Co de Phone Number [facility] [address] [place] [address], [place] [phone] * Culture blood (07/05/2025 11:00 AM EDT) Pathologist [facility] Culture, Blood No growth at 5 days 07/10/2025 11:01 AM EST [facility] Blood Venous blood specimen / Unknown Venipuncture / Unknown 07/05/2025 11:00 AM EDT 07/05/2025 11:42 AM EDT us Gwendolyn BURKS LAB MICROBIOLOGY - GENERAL ORDERABLES Final Result [facility] [address] [place] [address], [place] [phone] * (ABNORMAL) Hepatic function panel (07/05/2025 6:36 AM EDT) Pathologist [facility] Total Protein 8.3(H) 6.0 - 8.0 g/dL LAB CHEMISTRY METHOD 07/05/2025 8:47 AM EDT [facility] Albumin 2.9(L) 3.2 - 5.0 g/dL LAB CHEMISTRY METHOD 07/05/2025 8:47 AM EDT [facility] Total Bilirubin 0.2 0.0 - 1.4 mg/dL LAB CHEMISTRY METHOD 07/05/2025 8:47 AM EDT [facility] Bilirubin, Direct <0.1 0.0 - 0.3 mg/dL LAB CHEMISTRY METHOD 07/05/2025 8:47 AM EDT [facility] Bilirubin, Indirect LAB CHEMISTRY METHOD 07/05/2025 8:47 AM EDT [facility] Comment:Unable to calculate Indirect Bilirubin. ALT (SGPT) 15 10 - 60 unit/L LAB CHEMISTRY METHOD 07/05/2025 8:47 AM EDT [facility] AST (SGOT) 17 10 - 42 unit/L LAB CHEMISTRY METHOD 07/05/2025 8:47 AM EDT [facility] Alkaline Phosphatase 76 42 - 121 unit/L LAB CHEMISTRY METHOD 07/05/2025 8:47 AM EDT [facility] Blood Venous blood specimen / Unknown Venipuncture / Unknown 07/05/2025 6:36 AM EDT 07/05/2025 6:58 AM EDT us Gwendolyn BURKS LAB BLOOD ORDERABLES Final Result [facility] [address] [place] [address], * (ABNORMAL) Lactate dehydrogenase (07/05/2025 6:36 AM EDT) LDH 258(H) 120 - 246 unit/L LAB CHEMISTRY METHOD 07/05/2025 8:59 AM EDT [facility] Comment:Results verified by repeat testing Blood Venous blood specimen / Unknown Venipuncture / Unknown 07/05/2025 6:36 AM EDT 07/05/2025 6:58 AM EDT us Gwendolyn BURKS LAB BLOOD ORDERABLES Final Result Performing Organization Address [facility]/ZIP Co de Phone Number [facility] [address] [place] [address], * (ABNORMAL) Haptoglobin (07/05/2025 6:36 AM EDT) [facility] Haptoglobin 369(H) 16 - 200 mg/dL LAB CHEMISTRY METHOD 07/05/2025 8:21 AM EDT [facility] Blood Venous blood specimen / Unknown Venipuncture / Unknown 07/05/2025 6:36 AM EDT 07/05/2025 6:58 AM EDT Gwendolyn BURKS LAB BLOOD ORDERABLES Final Result Performing Organization Address [facility]/ZIP Co de Phone Number [facility] [address] [place] [address], * (ABNORMAL) CBC auto differential (07/05/2025 6:36 AM EDT) [facility] WBC 5.9 4.8 - 10.8 K/mcL LAB HEMETOLOGY METHOD 07/05/2025 7:52 AM EDT [facility] RBC 3.80 3.80 - 4.80 M/[facility] LAB HEMETOLOGY METHOD 07/05/2025 7:52 AM EDT [facility] Hemoglobin 7.6(L) 11.5 - 16.0 g/dL LAB HEMETOLOGY METHOD 07/05/2025 7:52 AM EDT [facility] Hematocrit 27.0(L) 35.0 - 47.0 % LAB HEMETOLOGY METHOD 07/05/2025 7:52 AM EDT [facility] MCV 71.8(L) 79.0 - 98.0 FL LAB HEMETOLOGY METHOD 07/05/2025 7:52 AM EDT [facility] MCH 20.2(L) 27.0 - 32.0 pcg LAB HEMETOLOGY METHOD 07/05/2025 7:52 AM [facility] MCHC 28.1(L) 32.0 - 37.0 g/dL LAB HEMETOLOGY METHOD 07/05/2025 7:52 AM [facility] RDW 20.4(H) 11.0 - 15.0 % LAB HEMETOLOGY METHOD 07/05/2025 7:52 AM [facility] Platelets 440(H) 130 - 400 K/mcL LAB HEMETOLOGY METHOD 07/05/2025 7:52 AM [facility] MPV 9.5 7.0 - 11.0 FL LAB HEMETOLOGY METHOD 07/05/2025 7:52 AM [facility] NRBC 0.0 <1.0 % LAB HEMETOLOGY METHOD 07/05/2025 7:52 AM [facility] NRBC Absolute 0.00 <0.10 K/mcL LAB HEMETOLOGY METHOD 07/05/2025 7:52 AM [facility] Neutrophils Relative 58.6 % LAB HEMETOLOGY METHOD 07/05/2025 7:52 AM [facility] Lymphocytes Relative 27.0 % LAB HEMETOLOGY METHOD 07/05/2025 7:52 AM [facility] Monocytes Relative 8.5 % LAB HEMETOLOGY METHOD 07/05/2025 7:52 AM [facility] Eosinophils Relative 4.6 % LAB HEMETOLOGY METHOD 07/05/2025 7:52 AM [facility] Basophils Relative 1.0 % LAB HEMETOLOGY METHOD 07/05/2025 7:52 AM [facility] Immature Granulocytes Relative 0.3 % LAB HEMETOLOGY METHOD 07/05/2025 7:52 AM [facility] Neutrophils Absolute 3.42 1.50 - 7.00 K/mcL LAB HEMETOLOGY METHOD 07/05/2025 7:52 AM EDT [facility] Lymphocytes Absolute 1.58 1.00 - 5.00 K/[facility] LAB HEMETOLOGY METHOD 07/05/2025 7:52 AM EDT [facility] Monocytes Absolute 0.50 0.20 - 1.00 K/[facility] LAB HEMETOLOGY METHOD 07/05/2025 7:52 AM EDT [facility] Eosinophils Absolute 0.27 0.00 - 0.50 K/[facility] LAB HEMETOLOGY METHOD 07/05/2025 7:52 AM EDT [facility] Basophils Absolute 0.06 0.00 - 0.20 K/[facility] LAB HEMETOLOGY METHOD 07/05/2025 7:52 AM EDT [facility] Immature Granulocytes Absolute 0.02 0.00 - 0.03 K/[facility] LAB HEMETOLOGY METHOD 07/05/2025 7:52 AM EDT [facility] Blood Venous blood specimen / Unknown Venipuncture / Unknown 07/05/2025 6:36 AM EDT 07/05/2025 6:58 AM EDT us Joe Dockery MD LAB BLOOD ORDERABLES Final Result [facility] [address] [place] [address], * Magnesium (07/05/2025 6:36 AM EDT) Magnesium 2.4 1.9 - 2.6 mg/dL LAB CHEMISTRY METHOD 07/05/2025 8:15 AM EDT [facility] Blood Venous blood specimen / Unknown Venipuncture / Unknown 07/05/2025 6:36 AM EDT 07/05/2025 6:58 AM EDT us Joe Dockery MD LAB BLOOD ORDERABLES Final Result [facility] [address] [place] [address], * (ABNORMAL) Basic metabolic panel (07/05/2025 6:36 AM EDT) Sodium 137 133 - 145 mmol/L LAB CHEMISTRY METHOD 07/05/2025 8:43 AM [facility] Potassium 4.4 3.5 - 5.5 mmol/L LAB CHEMISTRY METHOD 07/05/2025 8:43 AM [facility] Chloride 105 96 - 110 mmol/L LAB CHEMISTRY METHOD 07/05/2025 8:43 AM [facility] CO2 25 21 - 32 mmol/L LAB CHEMISTRY METHOD 07/05/2025 8:43 AM [facility] Anion Gap 7 3 - 11 LAB CHEMISTRY METHOD 07/05/2025 8:43 AM [facility] Glucose 121(H) 70 - 100 mg/dL LAB CHEMISTRY METHOD 07/05/2025 8:43 AM [facility] BUN 19 5 - 25 mg/dL LAB CHEMISTRY METHOD 07/05/2025 8:43 AM [facility] Creatinine 0.88 0.50 - 1.10 mg/dL LAB CHEMISTRY METHOD 07/05/2025 8:43 AM [facility] eGFR 81 >=60 mL/min/1. 73m2 LAB CHEMISTRY METHOD 07/05/2025 8:43 AM [facility] Comment:Calculation based on the Chronic Kidney Disease Epidemiology Collaboration (CKD-EPI) equation refit without adjustment for race. BUN/Creatinine Ratio 21.6 LAB CHEMISTRY METHOD 07/05/2025 8:43 AM [facility] Calcium 8.9 8.5 - 10.5 mg/dL LAB CHEMISTRY METHOD 07/05/2025 8:43 AM EDT [facility] Blood Venous blood specimen / Unknown Venipuncture / Unknown 07/05/2025 6:36 AM EDT 07/05/2025 6:58 AM EDT us Joe Dockery MD LAB BLOOD ORDERABLES Final Result [facility] [address] [place] [address], [place] [phone] * (ABNORMAL) AST, ALT, Bilirubin ELR state reportables (07/04/2025 11:48 AM EDT) [facility] ALT (SGPT) 8(L) 10 - 60 unit/L LAB CHEMISTRY METHOD 07/04/2025 4:27 PM EDT [facility] AST (SGOT) 12 10 - 42 unit/L LAB CHEMISTRY METHOD 07/04/2025 4:27 PM EDT [facility] Bilirubin, Direct <0.1 0.0 - 0.3 mg/dL LAB CHEMISTRY METHOD 07/04/2025 4:27 PM EDT [facility] Total Bilirubin 0.2 0.0 - 1.4 mg/dL LAB CHEMISTRY METHOD 07/04/2025 4:27 PM EDT [facility] Blood Venous blood specimen / Unknown Venipuncture / Unknown 07/04/2025 11:48 AM EDT 07/04/2025 12:02 PM EDT us Julianna Orozco MD LAB BLOOD ORDERABLES Final Resul t [facility] [address] [place] [address], [place] [phone] * (ABNORMAL) Hepatitis C virus quantitative molecular study (07/04/2025 11:48 AM EDT) [facility] HCV Qual Interp Detected (A) Not Detected LAB MOLECULAR DIAGNOSTICS METHOD 07/04/2025 4:24 PM EDT [facility] HCV RNA Quantitative 844,418( H) <12 I Unit/mL LAB MOLECULAR DIAGNOSTICS METHOD 07/04/2025 4:24 PM EDT [facility] HCV RNA Quantitative Log 5.93(H) <1.08 Log IU/mL LAB MOLECULAR DIAGNOSTICS METHOD 07/04/2025 4:24 PM EDT [facility] Blood Venous blood specimen / Unknown Venipuncture / Unknown 07/04/2025 11:48 AM EDT 07/04/2025 12:02 PM EDT us Julianna Orozco MD LAB BLOOD ORDERABLES Final Resul t [facility] [address] [place] [address], * (ABNORMAL) CBC auto differential (07/04/2025 8:45 AM EDT) WBC 5.3 4.8 - 10.8 K/mcL LAB HEMETOLOGY METHOD 07/04/2025 9:10 AM T [facility] RBC 4.30 3.80 - 4.80 M/mcL LAB HEMETOLOGY METHOD 07/04/2025 9:10 AM [facility] Hemoglobin 9.1(L) 11.5 - 16.0 g/dL LAB HEMETOLOGY METHOD 07/04/2025 9:10 AM T [facility] Hematocrit 30.3(L) 35.0 - 47.0 % LAB HEMETOLOGY METHOD 07/04/2025 9:10 AM EDT [facility] MCV 69.8(L) 79.0 - 98.0 FL LAB HEMETOLOGY METHOD 07/04/2025 9:10 AM [facility] MCH 21.0(L) 27.0 - 32.0 pcg LAB HEMETOLOGY METHOD 07/04/2025 9:10 AM [facility] MCHC 30.0(L) 32.0 - 37.0 g/dL LAB HEMETOLOGY METHOD 07/04/2025 9:10 AM [facility] RDW 19.9(H) 11.0 - 15.0 % LAB HEMETOLOGY METHOD 07/04/2025 9:10 AM [facility] Platelets 452(H) 130 - 400 K/mcL LAB HEMETOLOGY METHOD 07/04/2025 9:10 AM [facility] MPV 8.9 7.0 - 11.0 FL LAB HEMETOLOGY METHOD 07/04/2025 9:10 AM [facility] NRBC 0.0 <1.0 % LAB HEMETOLOGY METHOD 07/04/2025 9:10 AM [facility] NRBC Absolute 0.00 <0.10 K/[facility] LAB HEMETOLOGY METHOD 07/04/2025 9:10 AM [facility] Neutrophils Relative 64.1 % LAB HEMETOLOGY METHOD 07/04/2025 9:10 AM [facility] Lymphocytes Relative 25.4 % LAB HEMETOLOGY METHOD 07/04/2025 9:10 AM [facility] Monocytes Relative 7.2 % LAB HEMETOLOGY METHOD 07/04/2025 9:10 AM [facility] Eosinophils Relative 2.3 % LAB HEMETOLOGY METHOD 07/04/2025 9:10 AM [facility] Basophils Relative 0.6 % LAB HEMETOLOGY METHOD 07/04/2025 9:10 AM [facility] Immature Granulocytes Relative 0.4 % LAB HEMETOLOGY METHOD 07/04/2025 9:10 AM [facility] Neutrophils Absolute 3.38 1.50 - 7.00 K/mcL LAB HEMETOLOGY METHOD 07/04/2025 9:10 AM EDT [facility] Lymphocytes Absolute 1.34 1.00 - 5.00 K/[facility] LAB HEMETOLOGY METHOD 07/04/2025 9:10 AM EDT [facility] Monocytes Absolute 0.38 0.20 - 1.00 K/[facility] LAB HEMETOLOGY METHOD 07/04/2025 9:10 AM EDT [facility] Eosinophils Absolute 0.12 0.00 - 0.50 K/[facility] LAB HEMETOLOGY METHOD 07/04/2025 9:10 AM EDT [facility] Basophils Absolute 0.03 0.00 - 0.20 K/[facility] LAB HEMETOLOGY METHOD 07/04/2025 9:10 AM EDT [facility] Immature Granulocytes Absolute 0.02 0.00 - 0.03 K/[facility] LAB HEMETOLOGY METHOD 07/04/2025 9:10 AM EDT [facility] Blood Venous blood specimen / Unknown Venipuncture / Unknown 07/04/2025 8:45 AM EDT 07/04/2025 8:53 AM EDT Joe Dockery MD LAB BLOOD ORDERABLES Final Result [facility] [address] [place] [address], * Vancomycin, trough Please draw before 0900 dose (07/04/2025 8:45 AM EDT) Vancomycin Trough 18.3 10.0 - 20.0 mcg/mL LAB CHEMISTRY METHOD 07/04/2025 9:57 AM EDT [facility] Blood Venous blood specimen / Unknown Venipuncture / Unknown 07/04/2025 8:45 AM EDT 07/04/2025 8:53 AM EDT Tu BURKS LAB BLOOD ORDERABLES Final Resu lt Performing Organization Address [facility]/ZIP Co de Phone Number [facility] [address] [place] [address], [place] [phone] * Magnesium (07/04/2025 8:45 AM EDT) Pathologist [facility] Magnesium 2.3 1.9 - 2.6 mg/dL LAB CHEMISTRY METHOD 07/04/2025 9:57 AM EDT [facility] Blood Venous blood specimen / Unknown Venipuncture / Unknown 07/04/2025 8:45 AM EDT 07/04/2025 8:53 AM EDT Joe Dockery MD LAB BLOOD ORDERABLES Final Result Performing Organization Address [facility]/ZIP Co de Phone Number [facility] [address] [place] [address], [place] [phone] * (ABNORMAL) Basic metabolic panel (07/04/2025 8:45 AM EDT) Pathologist [facility] Sodium 138 133 - 145 mmol/L LAB CHEMISTRY METHOD 07/04/2025 9:57 AM [facility] Potassium 3.9 3.5 - 5.5 mmol/L LAB CHEMISTRY METHOD 07/04/2025 9:57 AM [facility] Chloride 106 96 - 110 mmol/L LAB CHEMISTRY METHOD 07/04/2025 9:57 AM [facility] CO2 27 21 - 32 mmol/L LAB CHEMISTRY METHOD 07/04/2025 9:57 AM [facility] Anion Gap 5 3 - 11 LAB CHEMISTRY METHOD 07/04/2025 9:57 AM [facility] Glucose 116(H) 70 - 100 mg/dL LAB CHEMISTRY METHOD 07/04/2025 9:57 AM [facility] BUN 11 5 - 25 mg/dL LAB CHEMISTRY METHOD 07/04/2025 9:57 AM EDT [facility] Creatinine 0.76 0.50 - 1.10 mg/dL LAB CHEMISTRY METHOD 07/04/2025 9:57 AM EDT [facility] eGFR 97 >=60 mL/min/1. 73m2 LAB CHEMISTRY METHOD 07/04/2025 9:57 AM EDT [facility] Comment:Calculation based on the Chronic Kidney Disease Epidemiology Collaboration (CKD-EPI) equation refit without adjustment for race. BUN/Creatinine Ratio 14.5 LAB CHEMISTRY METHOD 07/04/2025 9:57 AM EDT [facility] Calcium 9.0 8.5 - 10.5 mg/dL LAB CHEMISTRY METHOD 07/04/2025 9:57 AM EDT [facility] Blood Venous blood specimen / Unknown Venipuncture / Unknown 07/04/2025 8:45 AM EDT 07/04/2025 8:53 AM EDT Joe Dockery MD LAB BLOOD ORDERABLES Final Result [facility] [address] [place] [address], [place] [phone] * Blood Culture, Peripheral Draw #2 (2025 2:28 PM EDT) Culture, Blood No growth at 5 days 07/08/2025 2:02 PM EST [facility] Blood Venous blood specimen / Unknown Venipuncture / Unknown 2025 2:28 PM EDT 2025 2:39 PM EDT Julianna Orozco MD LAB MICROBIOLOGY - GENERAL ORDER RICARDO Final Result [facility] [address] [place] [address], [place] [phone] * (ABNORMAL) Blood culture pathogens molecular study (2025 1:35 PM EDT) Staphylococcus aureus Detected (A) Not Detected LAB MICROBIOLOGY METHOD 07/04/2025 4:04 PM EDT [facility] mecA/C and MREJ (MRSA) Detected (A) Not Detected LAB MICROBIOLOGY METHOD 07/04/2025 4:04 PM EDT [facility] Comment:mecA/C and MREJ Gene Detected: Indicates Methicillin Resistant Staphylococcus. Blood Venous blood specimen / Unknown Venipuncture / Unknown 2025 1:35 PM EDT 2025 1:39 PM EDT Julianna Orozco MD LAB MICROBIOLOGY - GENERAL ORDER RICARDO Final Result [facility] [address] [place] [address], * (ABNORMAL) Blood Culture, Peripheral Draw #1 (2025 1:35 PM EDT) [facility] Culture, Blood Methicillin-Resis tant Staphylococcus aureus(AA) PETTY 07/06/2025 8:18 AM EDT [facility] Comment: Positive for PBP2a - indicative of MRSA The organism value for this result has been updated. These results have been appended to the previously preliminary verified report. Result component has been updated to reportable to [facility]. Gram Stain Result Aerobic bottle Gram positive cocci in clusters(AA) 07/06/2025 8:18 AM EDT [facility] Comment:This is an appended report. These results have been appended to a previously preliminary verified report. Blood Venous blood specimen / Unknown Venipuncture / Unknown 2025 1:35 PM EDT 2025 1:39 PM EDT Narrative Organism Antibiotic Method Susceptibility Methicillin-Resistant Staphylococcus aureus Benzylpenicillin PETTY >=0.5 ug/ml: Resistant Methicillin-Resistant Staphylococcus aureus Oxacillin PETTY >=4 ug/ml: Resistant Methicillin-Resistant Staphylococcus aureus Gentamicin PETTY <=0.5 ug/ml: Susceptible Methicillin-Resistant Staphylococcus aureus Ciprofloxacin PETTY <=0.5 ug/ml: Susceptible Methicillin-Resistant Staphylococcus aureus Levofloxacin PETTY 0.25 ug/ml: Susceptible Methicillin-Resistant Staphylococcus aureus Erythromycin PETTY >=8 ug/ml: Resistant Methicillin-Resistant Staphylococcus aureus Clindamycin PETTY <=0.25 ug/ml: Susceptible Methicillin-Resistant Staphylococcus aureus Linezolid PETTY 2 ug/ml: Susceptible Methicillin-Resistant Staphylococcus aureus Vancomycin PETTY 1 ug/ml: Susceptible Methicillin-Resistant Staphylococcus aureus Tetracycline PETTY <=1 ug/ml: Susceptible Methicillin-Resistant Staphylococcus aureus Rifampin PETTY <=0.5 ug/ml: Susceptible Methicillin-Resistant Staphylococcus aureus Trimethoprim/Sulfamethoxazo le PETTY <=10 ug/ml: Susceptible us Julianna Orozco MD LAB MICROBIOLOGY - GENERAL ORDER RICARDO Final Result [facility] [address] [place] [address], * (ABNORMAL) AST, ALT, Bilirubin ELR state reportables (2025 6:10 AM EDT) ALT (SGPT) 8(L) 10 - 60 unit/L LAB CHEMISTRY METHOD 2025 10:59 PM EDT [facility] AST (SGOT) 12 10 - 42 unit/L LAB CHEMISTRY METHOD 2025 10:59 PM EDT [facility] Bilirubin, Direct <0.1 0.0 - 0.3 mg/dL LAB CHEMISTRY METHOD 2025 10:59 PM EDT [facility] Total Bilirubin 0.2 0.0 - 1.4 mg/dL LAB CHEMISTRY METHOD 2025 10:59 PM EDT [facility] Platelets 451 K/mcL LAB HEMETOLOGY METHOD 2025 10:59 PM EDT [facility] Blood Venous blood specimen / Unknown Venipuncture / Unknown 2025 6:10 AM EDT 2025 7:00 AM EDT us Julianna Orozco MD LAB BLOOD ORDERABLES Final Resul t Performing Organization Address [facility]/ZIP Co de Phone Number [facility] [address] [place] [address], [place] [phone] * Hepatitis B surface antigen with reflex to confirmation (2025 6:10 AM EDT) Hepatitis B Surface Ag Negative Negative LAB CHEMISTRY METHOD 2025 10:28 PM EDT [facility] Blood Venous blood specimen / Unknown Venipuncture / Unknown 2025 6:10 AM EDT 2025 7:00 AM EDT Narrative [facility] - 2025 10:28 PM EDT Over the counter supplements containing high doses of biotin may interfere with this assay. If interference is suspected, patients shoud be retested after refraining from biotin supplements for 72 hours. us Julianna Orozco MD LAB BLOOD ORDERABLES Final Resul t Performing Organization Address [facility] Co de Phone Number [facility] [address] [place] [address], [place] [phone] * (ABNORMAL) Hepatitis C antibody (2025 6:10 AM EDT) Pathologist [facility] Hepatitis C Antibody Positive (A) Negative LAB CHEMISTRY METHOD 2025 10:57 PM EDT [facility] Comment:If confirmation of t his positive HCV Ab screening test is needed, please redraw and order HCV Viral Load. Note--> This test may not be added on due to different specimen requirements. Blood Venous blood specimen / Unknown Venipuncture / Unknown 2025 6:10 AM EDT 2025 7:00 AM EDT us Julianna Orozco MD LAB BLOOD ORDERABLES Final Resul t Performing Organization Address City/[facility]/ZIP Co de Phone Number [facility] [address] [place] [address], [place] [phone] * HIV 1,2 antibody, p24 antigen with reflex to differentiation (2025 6:10 AM EDT) [facility] HIV Combo AB/AG Negative Negative LAB CHEMISTRY METHOD 2025 10:57 PM EDT [facility] Blood Venous blood specimen / Unknown Venipuncture / Unknown 2025 6:10 AM EDT 2025 7:00 AM EDT Narrative [facility] - 2025 10:57 PM EDT This assay is a 4th generation assay allowing for earlier detection of HIV infection by detecting the presence of the HIV-1 p24 antigen as well as the traditional antibodies to HIV type 1 (including group O) and type 2. Use of a 4th generation assay is the current CDC recommendation for HIV screening. us Julianna Orozco MD LAB BLOOD ORDERABLES Final Resul t Performing Organization Address [facility] Co de Phone Number [facility] [address] [place] [address], [place] [phone] * (ABNORMAL) CBC auto differential (2025 6:10 AM EDT) [facility] WBC 5.0 4.8 - 10.8 K/[facility] LAB HEMETOLOGY METHOD 2025 7:12 AM EDT [facility] RBC 3.40(L) 3.80 - 4.80 M/[facility] LAB HEMETOLOGY METHOD 2025 7:12 AM EDT [facility] Hemoglobin 7.1(L) 11.5 - 16.0 g/dL LAB HEMETOLOGY METHOD 2025 7:12 AM EDT [facility] Hematocrit 24.2(L) 35.0 - 47.0 % LAB HEMETOLOGY METHOD 2025 7:12 AM [facility] MCV 71.0(L) 79.0 - 98.0 FL LAB HEMETOLOGY METHOD 2025 7:12 AM [facility] MCH 20.8(L) 27.0 - 32.0 pcg LAB HEMETOLOGY METHOD 2025 7:12 AM [facility] MCHC 29.3(L) 32.0 - 37.0 g/dL LAB HEMETOLOGY METHOD 2025 7:12 AM [facility] RDW 19.3(H) 11.0 - 15.0 % LAB HEMETOLOGY METHOD 2025 7:12 AM [facility] Platelets 451(H) 130 - 400 K/mcL LAB HEMETOLOGY METHOD 2025 7:12 AM [facility] MPV 9.5 7.0 - 11.0 FL LAB HEMETOLOGY METHOD 2025 7:12 AM [facility] NRBC 0.0 <1.0 % LAB HEMETOLOGY METHOD 2025 7:12 AM [facility] NRBC Absolute 0.00 <0.10 K/mcL LAB HEMETOLOGY METHOD 2025 7:12 AM [facility] Neutrophils Relative 56.6 % LAB HEMETOLOGY METHOD 2025 7:12 AM [facility] Lymphocytes Relative 32.1 % LAB HEMETOLOGY METHOD 2025 7:12 AM [facility] Monocytes Relative 8.5 % LAB HEMETOLOGY METHOD 2025 7:12 AM [facility] Eosinophils Relative 1.8 % LAB HEMETOLOGY METHOD 2025 7:12 AM EDT [facility] Basophils Relative 0.8 % LAB HEMETOLOGY METHOD 2025 7:12 AM EDT [facility] Immature Granulocytes Relative 0.2 % LAB HEMETOLOGY METHOD 2025 7:12 AM EDT [facility] Neutrophils Absolute 2.81 1.50 - 7.00 K/mcL LAB HEMETOLOGY METHOD 2025 7:12 AM EDT [facility] Lymphocytes Absolute 1.59 1.00 - 5.00 K/mcL LAB HEMETOLOGY METHOD 2025 7:12 AM EDT [facility] Monocytes Absolute 0.42 0.20 - 1.00 K/mcL LAB HEMETOLOGY METHOD 2025 7:12 AM EDT [facility] Eosinophils Absolute 0.09 0.00 - 0.50 K/mcL LAB HEMETOLOGY METHOD 2025 7:12 AM EDT [facility] Basophils Absolute 0.04 0.00 - 0.20 K/mcL LAB HEMETOLOGY METHOD 2025 7:12 AM EDT [facility] Immature Granulocytes Absolute 0.01 0.00 - 0.03 K/mcL LAB HEMETOLOGY METHOD 2025 7:12 AM EDT [facility] Blood Venous blood specimen / Unknown Venipuncture / Unknown 2025 6:10 AM EDT 2025 7:01 AM EDT us Joe Dockery MD LAB BLOOD ORDERABLES Final Result [facility] [address] [place] [address], * Magnesium (2025 6:10 AM EDT) Magnesium 2.4 1.9 - 2.6 mg/dL LAB CHEMISTRY METHOD 2025 8:03 AM [facility] Blood Venous blood specimen / Unknown Venipuncture / Unknown 2025 6:10 AM EDT 2025 7:00 AM EDT us Joe Dockery MD LAB BLOOD ORDERABLES Final Result [facility] [address] [place] [address], [place] [phone] * (ABNORMAL) Basic metabolic panel (2025 6:10 AM EDT) Sodium 141 133 - 145 mmol/L LAB CHEMISTRY METHOD 2025 8:03 AM [facility] Potassium 4.1 3.5 - 5.5 mmol/L LAB CHEMISTRY METHOD 2025 8:03 AM [facility] Chloride 109 96 - 110 mmol/L LAB CHEMISTRY METHOD 2025 8:03 AM [facility] CO2 28 21 - 32 mmol/L LAB CHEMISTRY METHOD 2025 8:03 AM [facility] Anion Gap 4 3 - 11 LAB CHEMISTRY METHOD 2025 8:03 AM [facility] Glucose 90 70 - 100 mg/dL LAB CHEMISTRY METHOD 2025 8:03 AM [facility] BUN 21 5 - 25 mg/dL LAB CHEMISTRY METHOD 2025 8:03 AM [facility] Creatinine 0.85 0.50 - 1.10 mg/dL LAB CHEMISTRY METHOD 2025 8:03 AM [facility] eGFR 85 >=60 mL/min/1. 73m2 LAB CHEMISTRY METHOD 2025 8:03 AM [facility] Comment:Calculation based on the Chronic Kidney Disease Epidemiology Collaboration (CKD-EPI) equation refit without adjustment for race. BUN/Creatinine Ratio 24.7 LAB CHEMISTRY METHOD 2025 8:03 AM EDT [facility] Calcium 8.0(L) 8.5 - 10.5 mg/dL LAB CHEMISTRY METHOD 2025 8:03 AM EDT [facility] Blood Venous blood specimen / Unknown Venipuncture / Unknown 2025 6:10 AM EDT 2025 7:00 AM EDT Joe Dockery MD LAB BLOOD ORDERABLES Final Result [facility] [address] [place] [address], * Transfuse RBC, Leukoreduced (2025 5:26 AM EDT) Tu Akcam PA BLOOD TRANSFUSION ORDERABLES Fi nal Result * Transfuse RBC: 1 Units, Leukoreduced (2025 5:26 AM EDT) Sevilay Akcam PA BLOOD TRANSFUSION ORDERABLES Fi nal Result * Prepare RBC: 1 Units, Leukoreduced (07/02/2025 8:35 PM EDT) Product Code [id number] 2025 2:10 AM EDT [facility] Unit Number [id number] 07/03/20 2:10 AM EDT [facility] Crossmatch Compatible 07/02/2025 9:23 PM EDT [facility] Dispense Status Transfused 2025 2:10 AM EDT [facility] Unit ABO Rh APOS 2025 2:10 AM EDT [facility] Unit Expiration Date Time [id number] 2025 2:10 AM EDT [facility] Unit Blood Type 6200 2025 2:10 AM EDT [facility] Blood Venous blood specimen / Unknown 07/02/2025 8:35 PM EDT 06/30/2025 10:26 AM EDT [facility] PRODUCT ORDERABLES F inal Result Performing Organization Address [facility]/ZIP Co de Phone Number [facility] [address] [place] [address], [place] [phone] * (ABNORMAL) C-reactive protein (07/02/2025 8:17 PM EDT) Pathologist [facility] C-Reactive Protein 2.10(H) <=0.50 mg/dL LAB CHEMISTRY METHOD 07/02/2025 9:02 PM EDT [facility] Blood Venous blood specimen / Unknown Venipuncture / Unknown 07/02/2025 8:17 PM EDT 07/02/2025 8:27 PM EDT [facility] BLOOD ORDERABLES Final Resu lt Performing Organization Address [facility]/ZIP Co de Phone Number [facility] [address] [place] [address], [place] [phone] * (ABNORMAL) Comprehensive Metabolic Panel (CMP) (07/02/2025 8:17 PM EDT) Sodium 139 133 - 145 mmol/L LAB CHEMISTRY METHOD 07/02/2025 8:59 PM EDT [facility] Potassium 3.7 3.5 - 5.5 mmol/L LAB CHEMISTRY METHOD 07/02/2025 8:59 PM EDT [facility] Chloride 107 96 - 110 mmol/L LAB CHEMISTRY METHOD 07/02/2025 8:59 PM EDT [facility] CO2 27 21 - 32 mmol/L LAB CHEMISTRY METHOD 07/02/2025 8:59 PM [facility] Anion Gap 5 3 - 11 LAB CHEMISTRY METHOD 07/02/2025 8:59 PM [facility] Glucose 81 70 - 100 mg/dL LAB CHEMISTRY METHOD 07/02/2025 8:59 PM [facility] BUN 26(H) 5 - 25 mg/dL LAB CHEMISTRY METHOD 07/02/2025 8:59 PM [facility] Creatinine 0.83 0.50 - 1.10 mg/dL LAB CHEMISTRY METHOD 07/02/2025 8:59 PM [facility] eGFR 88 >=60 mL/min/1. 73m2 LAB CHEMISTRY METHOD 07/02/2025 8:59 PM [facility] Comment:Calculation based on the Chronic Kidney Disease Epidemiology Collaboration (CKD-EPI) equation refit without adjustment for race. BUN/Creatinine Ratio 31.3 LAB CHEMISTRY METHOD 07/02/2025 8:59 PM [facility] Calcium 8.6 8.5 - 10.5 mg/dL LAB CHEMISTRY METHOD 07/02/2025 8:59 PM [facility] AST (SGOT) 12 10 - 42 unit/L LAB CHEMISTRY METHOD 07/02/2025 8:59 PM [facility] ALT (SGPT) 8(L) 10 - 60 unit/L LAB CHEMISTRY METHOD 07/02/2025 8:59 PM [facility] Alkaline Phosphatase 74 42 - 121 unit/L LAB CHEMISTRY METHOD 07/02/2025 8:59 PM [facility] Total Protein 7.9 6.0 - 8.0 g/dL LAB CHEMISTRY METHOD 07/02/2025 8:59 PM [facility] Albumin 2.9(L) 3.2 - 5.0 g/dL LAB CHEMISTRY METHOD 07/02/2025 8:59 PM EDT [facility] Total Bilirubin 0.2 0.0 - 1.4 mg/dL LAB CHEMISTRY METHOD 07/02/2025 8:59 PM EDT [facility] Blood Venous blood specimen / Unknown Venipuncture / Unknown 07/02/2025 8:17 PM EDT 07/02/2025 8:27 PM EDT us Adrian Rodriguez MD LAB BLOOD ORDERABLES Final Res ult [facility] [address] [place] [address], * (ABNORMAL) CBC auto differential (07/02/2025 7:35 PM EDT) WBC 7.3 4.8 - 10.8 K/mcL LAB HEMETOLOGY METHOD 07/02/2025 7:51 PM EDT [facility] RBC 3.50(L) 3.80 - 4.80 M/[facility] LAB HEMETOLOGY METHOD 07/02/2025 7:51 PM EDT [facility] Hemoglobin 6.9(L) 11.5 - 16.0 g/dL LAB HEMETOLOGY METHOD 07/02/2025 7:51 PM T [facility] Hematocrit 24.8(L) 35.0 - 47.0 % LAB HEMETOLOGY METHOD 07/02/2025 7:51 PM EDT [facility] MCV 70.5(L) 79.0 - 98.0 FL LAB HEMETOLOGY METHOD 07/02/2025 7:51 PM EDT [facility] MCH 19.6(L) 27.0 - 32.0 pcg LAB HEMETOLOGY METHOD 07/02/2025 7:51 PM EDT [facility] MCHC 27.8(L) 32.0 - 37.0 g/dL LAB HEMETOLOGY METHOD 07/02/2025 7:51 PM EDT [facility] RDW 19.5(H) 11.0 - 15.0 % LAB HEMETOLOGY METHOD 07/[facility] 565(H) 130 - 400 K/mcL LAB HEMETOLOGY METHOD 07/02/2025 7[facility] MPV 9.5 7.0 - 11.0 FL LAB HEMETOLOGY METHOD 07/02/2025 7[facility] NRBC 0.0 <1.0 % LAB HEMETOLOGY METHOD 07/02/2025 7:[facility] NRBC Absolute 0.00 <0.10 K/mcL LAB HEMETOLOGY METHOD 07/02/2025 7:51 [facility] Neutrophils Relative 68.0 % LAB HEMETOLOGY METHOD 07/02/2025 7:51 [facility] Lymphocytes Relative 24.8 % LAB HEMETOLOGY METHOD 07/02/2025 7:51 [facility] Monocytes Relative 5.7 % LAB HEMETOLOGY METHOD 07/02/2025 7:51 PM [facility] Eosinophils Relative 0.5 % LAB HEMETOLOGY METHOD 07/02/2025 7[facility] Basophils Relative 0.7 % LAB HEMETOLOGY METHOD 07/02/2025 7:51 [facility] Immature Granulocytes Relative 0.3 % LAB HEMETOLOGY METHOD 07/02/2025 7:51 [facility] Neutrophils Absolute 4.98 1.50 - 7.00 K/mcL LAB HEMETOLOGY METHOD 07/02/2025 7:51 [facility] Lymphocytes Absolute 1.82 1.00 - 5.00 K/mcL LAB HEMETOLOGY METHOD 07/02/2025 7:51 PM EDT [facility] Monocytes Absolute 0.42 0.20 - 1.00 K/mcL LAB HEMETOLOGY METHOD 07/02/2025 7:51 PM EDT [facility] Eosinophils Absolute 0.04 0.00 - 0.50 K/[facility] LAB HEMETOLOGY METHOD 07/02/2025 7:51 PM EDT [facility] Basophils Absolute 0.05 0.00 - 0.20 K/[facility] LAB HEMETOLOGY METHOD 07/02/2025 7:51 PM EDT [facility] Immature Granulocytes Absolute 0.02 0.00 - 0.03 K/[facility] LAB HEMETOLOGY METHOD 07/02/2025 7:51 PM EDT [facility] Blood Venous blood specimen / Unknown Venipuncture / Unknown 07/02/2025 7:35 PM EDT 07/02/2025 7:43 PM EDT us Adrian Rodriguez MD LAB BLOOD ORDERABLES Final Res ult [facility] [address] [place] [address], * (ABNORMAL) Blood Culture, Peripheral #1 (07/02/2025 7:35 PM EDT) Culture, Blood Methicillin-Resis tant Staphylococcus aureus(AA) 07/06/2025 8:19 AM EDT [facility] Comment: Positive for PBP2a - indicative of MRSA The organism value for this result has been updated. These results have been appended to the previously preliminary verified report. Result component has been updated to reportable to [facility]. Gram Stain Result Anaerobic bottle Gram positive cocci in clusters(AA) 07/06/2025 8:19 AM EDT [facility] Comment:This is an appended report. These results have been appended to a previously preliminary verified report. Blood Venous blood specimen / Unknown Venipuncture / Unknown 07/02/2025 7:35 PM EDT 07/02/2025 7:43 PM EDT Narrative [facility] ([facility]) [facility] - 07/06/2025 8:19 AM EDT FOR SUSCEPTIBILITIES, REFER TO PREVIOUS CULTURE FROM 07/03/25 @ 1335. Adrian Rodriguez MD LAB MICROBIOLOGY - GENERAL ORD ERABLES Final Result [facility]) [facility] [address] [place] [address], [place] [phone] documented in this encounter Visit Diagnoses Diagnosis Septic arthritis of lumbar spine ([facility] V24)- Primary Bacteremia Sepsis due to methicillin resistant Staphylococcus aureus (MRSA) without acute organ dysfunction ([facility] V24, [facility] V28) Septic arthritis of intervertebral joint ([facility] V24) Septic arthritis of lumbar spine ([facility] V24) documented in this encounter Admitting Diagnoses Diagnosis Septic arthritis of lumbar spine ([facility] V24) documented in this encounter Administered Medications Inactive Administered Medications - up to 3 most recent administrations Medication Order MAR Action Action Date Dose Rate Site acetaminophen (TYLENOL) tablet 650 mg 650 mg, oral, Every 4 hours PRN, mild pain, headaches, fever - temperature GREATER than 38 C (100.4 F), Starting on Glory 07/04/25 at 1927 Given 07/16/2025 8:09 PM EST 650 mg Given 07/11/2025 9:18 PM EST 650 mg Given 07/09/2025 12:11 PM EST 650 mg aluminum-magnesium hydroxide-simethicone (MAALOX) 200-200-20 mg/5 mL suspension 10 mL 10 mL, oral, Every 6 hours PRN, indigestion, heartburn, Starting on 07/15/25 at 1338 Given 07/15/2025 2:54 PM EST 10 mL ascorbic acid (VITAMIN C) tablet 250 mg 250 mg, oral, Daily, First dose (after last modification) on 07/03/25 at 0900 Given 07/16/2025 8:24 AM EST 250 mg Given 07/15/2025 9:31 AM EST 250 mg Given 07/14/2025 8:23 AM EST 250 mg bisacodyL (DULCOLAX) suppository 10 mg 10 mg, rectal, Once, On 07/15/25 at 1200, For 1 dose Given 07/15/2025 1:12 PM EST 10 mg buprenorphine (BUPRENEX) injection 0.15 mg 0.15 mg, intravenous, Once, On Glory 07/04/25 at 1215, For 1 dose, If ordered IV, give slowly over at leasst 2 minutes. Given 07/04/2025 1:22 PM EDT 0.15 mg buprenorphine (BUPRENEX) injection 0.15 mg 0.15 mg, intravenous, 2 times daily, First dose on Tue07/05/25 at 0900, For 1 day, If ordered IV, give slowly over at leasst 2 minutes. Given 07/05/2025 10:08 PM EDT 0.15 mg Given 07/05/2025 10:27 AM EDT 0.15 mg buprenorphine (BUPRENEX) injection 0.3 mg 0.3 mg, intravenous, 2 times daily, First dose on Tue07/06/25 at 0900, For 2 doses, If ordered IV, give slowly over at leasst 2 minutes. Given 07/06/2025 9:33 PM EDT 0.3 mg Given 07/06/2025 10:13 AM EDT 0.3 mg buprenorphine-naloxone (SUBOXONE) 2-0.5 mg per SL tablet 1 tablet 1 tablet, sublingual, 2 times daily, First dose on Tue07/07/25 at 0900, - After the medication is completely dissolved, instruct the patient to take a large sip of water, swish it around teeth and gums, and swallow. - Patient should wait at least 1 hour before brushing teeth to avoid damage to their teeth. Given 07/15/2025 9:31 AM EST 1 tablet Given 07/14/2025 11:03 PM EST 1 tablet Given 07/14/2025 8:23 AM EST 1 tablet calcium carbonate (TUMS) chewable tablet 1,000 mg 1,000 mg, oral, 4 times daily PRN, heartburn, indigestion, Starting on Glory 07/11/25 at 0358, Ordered as calcium carbonate. 500 mg calcium carbonate = 200 mg elemental calcium. Given 07/13/2025 2:23 PM EST 1,000 mg Given 07/13/2025 3:09 AM EST 1,000 mg Given 07/12/2025 9:06 PM EST 1,000 mg cariprazine (VRAYLAR) capsule 1.5 mg 1.5 mg, oral, Daily, First dose on 07/15/25 at 1230 clonazePAM (KlonoPIN) tablet 0.5 mg 0.5 mg, oral, 2 times daily PRN, anxiety, Starting on 07/13/25 at 1029, Hazardous Medication Intact: - Single pair of ASTM standard [id number] certified gloves - Eye/face protection if vomit or potential to spit up Manipulated: - Double pair of ASTM standard [id number] certified gloves - Eye/face protection if vomit or potential to spit up - Staff at reproductive risk must also wear a hazardous gown - Crushing must be performed in sealed closed pouch - Splitting/cutting should be performed by pharmacy, if possible Given 07/15/2025 10:35 PM EST 0.5 mg Given 07/15/2025 2:21 AM EST 0.5 mg Given 07/14/2025 4:36 PM EST 0.5 mg cloNIDine (CATAPRES) tablet 0.1 mg 0.1 mg, oral, Every 8 hours scheduled, First dose (after last modification) on Tue07/02/25 at 2200, Obtain vital signs prior to administration and document. Hold if SBP <110,HR<55 Given 07/04/2025 2:49 PM EDT 0.1 mg Given 07/02/2025 10:35 PM EDT 0.1 mg cyanocobalamin (VITAMIN B-12) injection 1,000 mcg 1,000 mcg, intramuscular, Daily, First dose (after last modification) on Tue07/03/25 at 0900, For 3 doses Given 07/05/2025 10:25 AM EDT 1,000 mcg Right Deltoid Given 07/04/2025 9:46 AM EDT 1,000 mcg Le ft Deltoid Given 2025 8:27 AM EDT 1,000 mcg Le ft Deltoid docusate sodium (COLACE) capsule 100 mg 100 mg, oral, 2 times daily, First dose on Tue07/03/25 at 1230 Given 07/04/2025 9:46 AM EDT 100 mg Given 2025 9:14 PM EDT 100 mg Given 2025 12:37 PM EDT 100 mg docusate sodium (COLACE) capsule 100 mg 100 mg, oral, 2 times daily, First dose on Glory 07/04/25 at 1200 Given 07/16/2025 8:10 PM EST 100 mg Given 07/13/2025 9:30 AM EST 100 mg Given 07/11/2025 9:32 AM EST 100 mg enoxaparin (LOVENOX) injection 40 mg 40 mg, subcutaneous, Every 24 hours scheduled, First dose on Tue07/03/25 at 1230, Indication: VTE/PE Prophylaxis Given 07/16/2025 8:24 AM EST 40 mg Left Lower Abdomen Given 07/15/2025 9:31 AM EST 40 mg Ri ght Lower Abdomen Given 07/14/2025 8:23 AM EST 40 mg Ri ght Upper Abdomen ferric gluconate (FERRLECIT) 125 mg in sodium chloride 0.9 % 110 mL IVPB 125 mg, intravenous, at 110 mL/hr, Administer over 60 Minutes, Once, On 07/06/25 at 1300, For 1 dose New Bag 07/06/2025 1:05 PM EDT 125 mg 110 mL/hr ferrous sulfate tablet 325 mg 325 mg, oral, 2 times daily, First dose on Tue07/03/25 at 1230, Take on an empty stomach with a full glass of water, at least 1 hour before or 2 hours after a meal. May be taken with food if causes an upset stomach. Avoid taking antacids or antibiotics within 2 hours before or after. Ordered as ferrous sulfate. 325 mg ferrous sulfate = 65 mg elemental iron. Given 07/16/2025 8:10 PM EST 325 mg Given 07/16/2025 8:24 AM EST 325 mg Given 07/15/2025 11:54 PM EST 325 mg fluconazole (DIFLUCAN) tablet 150 mg 150 mg, oral, Once, On 07/08/25 at 1630, For 1 dose, Hazardous Medication Intact: - Single pair of ASTM standard [id number] certified gloves - Eye/face protection if vomit or potential to spit up Manipulated: - Double pair of ASTM standard [id number] certified gloves - Eye/face protection if vomit or potential to spit up - Staff at reproductive risk must also wear a hazardous gown - Crushing must be performed in sealed closed pouch - Splitting/cutting should be performed by pharmacy, if possible, Indication: Candidiasis Given 07/08/2025 4:07 PM EST 150 mg gabapentin (NEURONTIN) capsule 100 mg 100 mg, oral, Every 8 hours scheduled, First dose on Tue07/03/25 at 1215 HYDROmorphone (DILAUDID) injection 0.5 mg 0.5 mg, intravenous, Every 3 hours PRN, moderate pain, Starting on Tue07/02/25 at 2042, Obtain vital signs prior to administration and document. Hold if SBP <110,RR<12, Lethargy/Somnolence Given 07/08/2025 5:36 PM EST 0.5 mg Given 07/07/2025 10:33 PM EST 0.5 mg Given 07/07/2025 2:29 PM EST 0.5 mg HYDROmorphone (DILAUDID) injection 1 mg 1 mg, intravenous, Every 2 hours PRN, severe pain, Starting on Tue07/02/25 at 2040 Given 07/09/2025 9:02 AM EST 1 mg Given 07/09/2025 2:14 AM EST 1 mg Given 07/08/2025 9:15 PM EST 1 mg HYDROmorphone (DILAUDID) tablet 2 mg 2 mg, oral, Every 4 hours PRN, severe pain, Starting on Tue07/09/25 at 1251 Given 07/10/2025 12:03 PM EST 2 mg Given 07/09/2025 10:25 PM EST 2 mg Given 07/09/2025 3:18 PM EST 2 mg HYDROmorphone (DILAUDID) tablet 2 mg 2 mg, oral, Once, On 07/13/25 at 1045, For 1 dose Given 07/13/2025 10:48 AM EST 2 mg ibuprofen (ADVIL,MOTRIN) tablet 400 mg 400 mg, oral, Once, On 07/15/25 at 1400, For 1 dose, Administer with food or milk to decrease GI upset Given 07/15/2025 2:54 PM EST 400 mg ibuprofen (ADVIL,MOTRIN) tablet 600 mg 600 mg, oral, Once, On 07/07/25 at 2200, For 1 dose, FOR FEVER (>38 C) UNRESPONSIVE TO ACETAMINOPHEN AFTER 30 MIN Administer with food or milk to decrease GI upset Given 07/07/2025 10:32 PM EST 600 mg LORazepam (ATIVAN) injection 1 mg 1 mg, intravenous, Every 8 hours PRN, anxiety, Starting on Tue07/02/25 at 2041, If hydroxyzine doesn't help Prior to IV use, lorazepam injection should be DILUTED with an equal volume of compatible solution; Rate of administration should NOT exceed 2 mg/min. Given 2025 11:44 AM EDT 1 mg Given 07/02/2025 10:35 PM EDT 1 mg LORazepam (ATIVAN) tablet 0.5 mg 0.5 mg, oral, Every 8 hours PRN, anxiety, sleep, Starting on Tue07/09/25 at 1250 Given 07/10/2025 9:28 AM EST 0.5 m g Given 07/09/2025 11:18 PM EST 0.5 mg LORazepam (ATIVAN) tablet 0.5 mg 0.5 mg, oral, 2 times daily PRN, anxiety, Starting on Tue07/10/25 at 1425 Given 07/11/2025 12:40 PM EST 0.5 mg Given 07/11/2025 12:12 AM EST 0.5 mg LORazepam (ATIVAN) tablet 0.5 mg 0.5 mg, oral, Once, On 07/13/25 at 0115, For 1 dose Given 07/13/2025 1:07 AM EST 0.5 mg LORazepam (ATIVAN) tablet 1 mg 1 mg, oral, Every 6 hours PRN, anxiety, Starting on 07/06/25 at 0726, SECOND CHOICE MEDICATION FOR ANXIETY Given 07/08/2025 9:15 PM EST 1 mg Given 07/08/2025 11:18 AM EST 1 mg Given 07/08/2025 2:17 AM EST 1 mg LORazepam (ATIVAN) tablet 1 mg 1 mg, oral, Every 6 hours PRN, anxiety, Starting on Tue07/03/25 at 1254 Given 07/06/2025 12:05 AM EDT 1 mg Given 07/05/2025 9:23 AM EDT 1 mg Given 07/04/2025 9:17 PM EDT 1 mg methadone (DOLOPHINE) tablet 10 mg 10 mg, oral, Daily, First dose (after last modification) on Tue07/03/25 at 0900, Total daily dose = 50 mg ( see linked order) Given 07/04/2025 9:45 AM EDT 10 mg Given 2025 8:27 AM EDT 10 mg methadone (DOLOPHINE) tablet 10 mg 10 mg, oral, Daily, First dose on Tue07/08/25 at 0900 Given 07/08/2025 8:21 AM EST 10 mg methadone (DOLOPHINE) tablet 10 mg 10 mg, oral, Daily, First dose on Tue07/17/25 at 0900, TOTAL DOSE = 50 MG methadone (DOLOPHINE) tablet 20 mg 20 mg, oral, Once, On Tue07/02/25 at 2230, For 1 dose Given 07/02/2025 11:37 PM EDT 20 mg methadone (DOLOPHINE) tablet 20 mg 20 mg, oral, Daily, First dose on Tue07/07/25 at 0900, For 1 dose Given 07/07/2025 8:53 AM EST 20 mg methadone (DOLOPHINE) tablet 30 mg 30 mg, oral, Daily, First dose (after last modification) on 07/06/25 at 0900, For 1 dose, Disperse total dose in ~120 mL of water, orange juice, or other acidic fruit beverage prior to administration; if insoluble excipients remain and do not entirely dissolve, add a small amount of liquid to cup and administer remaining mixture. Do not chew or swallow tablet before dispersing in liquid. Given 07/06/2025 10:11 AM EDT 30 mg methadone (METHADOSE) dispersible tablet 40 mg 40 mg, oral, Daily, First dose (after last modification) on Tue07/03/25 at 0900, Total daily dose = 50 mg ( see linked order) Disperse total dose in ~120 mL of water, orange juice, or other acidic fruit beverage prior to administration; if insoluble excipients remain and do not entirely dissolve, add a small amount of liquid to cup and administer remaining mixture. Do not chew or swallow tablet before dispersing in liquid. Given 07/04/2025 9:45 AM EDT 40 mg Given 2025 8:27 AM EDT 40 mg methadone (METHADOSE) dispersible tablet 40 mg 40 mg, oral, Daily, First dose on Tue07/05/25 at 0900, For 1 day, Disperse total dose in ~120 mL of water, orange juice, or other acidic fruit beverage prior to administration; if insoluble excipients remain and do not entirely dissolve, add a small amount of liquid to cup and administer remaining mixture. Do not chew or swallow tablet before dispersing in liquid. Given 07/05/2025 10:25 AM EDT 40 mg methadone (METHADOSE) dispersible tablet 40 mg 40 mg, oral, Daily, First dose on Tue07/15/25 at 1015, Disperse total dose in ~120 mL of water, orange juice, or other acidic fruit beverage prior to administration; if insoluble excipients remain and do not entirely dissolve, add a small amount of liquid to cup and administer remaining mixture. Do not chew or swallow tablet before dispersing in liquid. Given 07/16/2025 8:24 AM EST 40 mg Given 07/15/2025 11:25 AM EST 40 mg methadone (METHADOSE) dispersible tablet 40 mg 40 mg, oral, Daily, First dose (after last reorder) on Tue07/17/25 at 0900, TOTAL DOSE = 50 MG Disperse total dose in ~120 mL of water, orange juice, or other acidic fruit beverage prior to administration; if insoluble excipients remain and do not entirely dissolve, add a small amount of liquid to cup and administer remaining mixture. Do not chew or swallow tablet before dispersing in liquid. morphine injection 4 mg 4 mg, intravenous, Once, On Tue07/02/25 at 1906, For 1 dose Given 07/02/2025 8:35 PM EDT 4 mg ondansetron (PF) (ZOFRAN) injection 4 mg 4 mg, intravenous, Every 8 hours PRN, vomiting, nausea, Starting on Glory 07/04/25 at 1927, -ONLY give IV if patient is unable to take orally. -If inadequate response within 30 minutes, proceed to next-line agent or contact provider if no further options ordered. Given 07/13/2025 9:01 PM EST 4 mg Given 07/06/2025 1:05 PM EDT 4 mg ondansetron ODT (ZOFRAN-ODT) disintegrating tablet 4 mg 4 mg, oral, Every 8 hours PRN, vomiting, nausea, Starting on Glory 07/04/25 at 1927, -Give IV if patient is unable to take orally. -If inadequate response within 30 minutes, proceed to next-line agent or contact provider if no further options ordered. For ODT tablets: -Do not remove from blister pack until just before administering. -Patient should allow tablet to dissolve on tongue. Given 07/09/2025 2:14 AM EST 4 mg oxyCODONE (ROXICODONE) immediate release tablet 10 mg 10 mg, oral, Every 6 hours PRN, severe pain, Starting on Tue07/16/25 at 0802 Given 07/16/2025 8:09 PM EST 10 mg oxyCODONE (ROXICODONE) immediate release tablet 5 mg 5 mg, oral, Every 6 hours PRN, severe pain, Starting on Tue07/10/25 at 1424 Given 07/11/2025 9:32 AM EST 5 mg Given 07/10/2025 10:22 PM EST 5 mg oxyCODONE (ROXICODONE) immediate release tablet 5 mg 5 mg, oral, Every 6 hours PRN, severe pain, Starting on Glory 07/11/25 at 1401 Given 07/16/2025 6:31 AM EST 5 mg Given 07/15/2025 11:54 PM EST 5 mg Given 07/15/2025 1:25 PM EST 5 mg oxyCODONE (ROXICODONE) immediate release tablet 5 mg 5 mg, oral, Every 6 hours PRN, moderate pain, Starting on Tue07/16/25 at 0802 pantoprazole (PROTONIX) EC tablet 40 mg 40 mg, oral, 2 times daily before meals, First dose on Tue07/15/25 at 1630, Do not crush, chew, or split. Given 07/16/2025 6:31 AM EST 40 mg Given 07/15/2025 3:46 PM EST 40 mg piperacillin-tazobactam (ZOSYN) 3.375 g in sodium chloride 0.9 % 100 mL IVPB 3.375 g, intravenous, at 200 mL/hr, Administer over 30 Minutes, Every 6 hours, First dose (after last modification) on Tue07/03/25 at 0530, For 20 doses, Do not administer through same line as lactated ringer s fluids (LR), Indication: Skin/Soft Tissue New Bag 2025 4:59 PM EDT 3.375 g 200 mL/hr New Bag 2025 11:44 AM EDT 3.375 g 200 mL/hr New Bag 2025 5:27 AM EDT 3.375 g 200 mL/hr piperacillin-tazobactam (ZOSYN) 4.5 g in sodium chloride 0.9 % 100 mL IVPB 4.5 g, intravenous, at 200 mL/hr, Administer over 0.5 Hours, Once, On Tue07/02/25 at 2230, For 1 dose, Do not administer through same line as lactated ringer s fluids (LR), Indication: Other, Specify: Septic arthritis New Bag 07/02/2025 11:37 PM EDT 4.5 g 200 mL/hr prochlorperazine (COMPAZINE) injection 10 mg 10 mg, intravenous, Every 6 hours PRN, nausea, vomiting, Starting on Glory 07/04/25 at 1927, 2nd Line Option: -ONLY give IV if patient is unable to take orally. -Give IM if patient does not have IV Access -If inadequate response within 30 minutes, proceed to next-line agent or contact provider if no further options ordered. Given 07/09/2025 5:14 AM EST 10 mg prochlorperazine (COMPAZINE) suppository 25 mg 25 mg, rectal, Every 12 hours PRN, nausea, vomiting, Starting on Glory 07/04/25 at 1927, 2nd Line Option: -ONLY give CO if patient is unable to take orally and cannot receive IV/IM. -If inadequate response within 30 minutes, proceed to next-line agent or contact provider if no further options ordered. prochlorperazine (COMPAZINE) tablet 10 mg 10 mg, oral, Every 6 hours PRN, nausea, vomiting, Starting on Glory 07/04/25 at 1927, 2nd Line Option: -Give IV or IM if patient is unable to take orally. -If inadequate response within 30 minutes, proceed to next-line agent or contact provider if no further options ordered. sertraline (ZOLOFT) tablet 25 mg 25 mg, oral, Daily, First dose on 07/08/25 at 1630 Given 07/16/2025 8:24 AM EST 25 mg Given 07/15/2025 9:31 AM EST 25 mg Given 07/14/2025 8:23 AM EST 25 mg sodium chloride 0.9 % bolus 1,701 mL 1,701 mL (30 mL/kg 56.7 kg), intravenous, at 1,701 mL/hr, Administer over 1 Hours, Once, On Tue07/02/25 at 1906, For 1 dose New Bag 07/02/2025 10:31 PM EDT 1,701 mL 1701 mL/hr sodium chloride 0.9 % flush 10 mL 10 mL, intravenous, 2 times daily, First dose on Tue07/04/25 at 2100 Given 07/16/2025 8:10 PM EST 10 mL Given 07/16/2025 8:24 AM EST 10 mL Given 07/15/2025 10:35 PM EST 10 mL sodium chloride 0.9 % flush 10 mL 10 mL, intravenous, As needed, line care, Starting on Tue07/04/25 at 1927 sodium chloride 0.9 % infusion 42 mL/hr, intravenous, As needed, pre-, and post- transfusion as needed for line flush purposes, in conjunction with blood product transfusion only, Starting on Tue07/02/25 at 203, -Use only the amount required from a 250 mL bag of NS to adequately flush -A new NS bag is required with each new unit of blood administered traZODone (DESYREL) tablet 25 mg 25 mg, oral, Nightly PRN, sleep, Starting on Tue07/11/25 at 1401 vancomycin (VANCOCIN) 1,000 mg in sodium chloride 0.9 % 250 mL IVPB 1,000 mg, intravenous, at 250 mL/hr, Administer over 60 Minutes, Every 12 hours, First dose on Tue07/03/25 at 0900, For 7 days, Indication: Bacteremia, Bone/Joint New Bag 07/05/2025 10:10 PM EDT 1,000 mg 250 mL/hr New Bag 07/05/2025 11:57 AM EDT 1,000 mg 250 mL/hr New Bag 07/04/2025 11:54 PM EDT 1,000 mg 250 mL/hr vancomycin (VANCOCIN) 1,000 mg in sodium chloride 0.9 % 250 mL IVPB 1,000 mg, intravenous, at 250 mL/hr, Administer over 60 Minutes, Every 12 hours, First dose (after last modification) on Tue07/12/25 at 2300, For 99 doses, Indication: Bacteremia, Bone/Joint New Bag 07/16/2025 10:46 AM EST 1,000 mg 250 mL/hr 07/15/2025 10:35 PM EST 1,000 mg 250 mL/hr 07/15/2025 11:25 AM EST 1,000 mg 250 mL/hr vancomycin (VANCOCIN) 750 mg in sodium chloride 0.9 % 250 mL IVPB 750 mg, intravenous, at 250 mL/hr, Administer over 60 Minutes, Every 12 hours, First dose (after last modification) on Tue07/06/25 at 2300, For 111 doses, Indication: Bacteremia, Bone/Joint New 07/12/2025 11:23 AM EST 750 mg 250 mL/ hr 07/11/2025 11:19 PM EST 750 mg 250 mL/hr 07/11/2025 11:34 AM EST 750 mg 250 mL/hr vancomycin (VANCOCIN) IVPB 1,250 mg in 0.9 % sodium chloride 250 mL - CNR 1,250 mg (rounded from 1,134 mg = 20 mg/kg 56.7 kg), intravenous, at 166.7 mL/hr, Administer over 90 Minutes, Once, On Tue07/02/25 at 1906, For 1 dose, Indication: Other, Specify: Septic arthritis 07/02/2025 8:40 PM EDT 1,250 mg 166.7 mL/hr zolpidem (AMBIEN) tablet 10 mg 10 mg, oral, Nightly PRN, sleep, Starting on Tue07/10/25 at 1424 Given 07/11/2025 12:12 AM EST 10 mg zolpidem (AMBIEN) tablet 5 mg 5 mg, oral, Once, On Tue07/02/25 at 2230, For 1 dose Given 07/02/2025 10:35 PM EDT 5 mg zolpidem (AMBIEN) tablet 5 mg 5 mg, oral, Nightly PRN, sleep, Starting on Tue07/03/25 at 1255 Given 07/09/2025 11:18 PM EST 5 mg Given 07/08/2025 11:42 PM EST 5 mg Given 07/07/2025 11:05 PM EST 5 mg zolpidem (AMBIEN) tablet 5 mg 5 mg, oral, Nightly PRN, sleep, Starting on Glory 07/11/25 at 1357 Given 07/12/2025 12:21 AM EST 5 mg zolpidem (AMBIEN) tablet 5 mg 5 mg, oral, Nightly - one time, First dose on Tue07/15/25 at 2100, For 1 dose Given 07/15/2025 11:54 PM EST 5 mg documented in this encounter Discontinued Medications Medication Sig Discontinue Reason Start Date End Da te zolpidem (AMBIEN) 10 mg tablet Take 1 tablet (10 mg total) by mouth at bedtime as needed for sleep. Max Daily Amount: 10 mg Stop Taking at Discharge 07/11/2025 07/11/2025 documented as of this encounter Active and Recently Administered Medications Times are shown in EST. Scheduled Medication Order 07/14/2025 07/15/2025 07/16/2025 ascorbic acid (VITAMIN C) tablet 250 mg 250 mg, oral, Daily, First dose (after last modification) on Tue07/03/25 at 0900 0823 (Given - Provider: Chana Vela RN) 09 (Given - Provider: Roro Diallo RN) 0824 (Given - Provider: Odette Taylor RN) bisacodyL (DULCOLAX) suppository 10 mg (COMPLETED) 10 mg, rectal, Once, On Tue07/15/25 at 1200, For 1 dose 1312 (Given - Provider: Roro Diallo, AMBER) buprenorphine-naloxone (SUBOXONE) 2-0.5 mg per SL tablet 1 tablet (CANCELED) 1 tablet, sublingual, 2 times daily, First dose on Tue07/07/25 at 0900, - After the medication is completely dissolved, instruct the patient to take a large sip of water, swish it around teeth and gums, and swallow. - Patient should wait at least 1 hour before brushing teeth to avoid damage to their teeth. 0823 (Given - Provider: Chana Vela RN)2303 (Given - Provider: Edith Townsend RN) 0931 (Given - Provider: Roro Diallo RN) cariprazine (VRAYLAR) capsule 1.5 mg 1.5 mg, oral, Daily, First dose on Tue07/15/25 at 1230 1406 (Not Given - Provider: Roro Diallo RN - Reason: Patient/Resident/Agent refused - education provided - Comment: I want to do some research first. I've had very serious reactions to antipsychotics in the past.) 0826 (Not Given - Provider: Odette Taylor RN - Reason: Patient/Resident/Agen t refused - education provided ) cloNIDine (CATAPRES) tablet 0.1 mg 0.1 mg, oral, Every 8 hours scheduled, First dose (after last modification) on Tue07/02/25 at 2200, Obtain vital signs prior to administration and document. Hold if SBP <110,HR<55 0557 (Not Given - Provider: Edith Townsend RN - Reason: Patient/Resident/Ag ent refused - education provided )1451 (Not Given - Provider: Chana Vela RN - Reason: Patient/Resident/Ag ent refused - education provided )2104 (Not Given - Provider: Edith Townsend RN - Reason: Patient/Resident/Ag ent refused - education provided ) 0539 (Not Given - Provider: Edith Townsend RN - Reason: Patient/Resident/Agent refused - education provided )1408 (Not Given - Provider: Roro Diallo RN - Reason: Patient/Resident/Agent refused - education provided )2224 (Not Given - Provider: Edith Townsend RN - Reason: Patient/Resident/Agent refused - education provided ) 0548 (Not Given - Provider: Edith Townsend RN - Reason: Patient/Resident/Agen t refused - education provided )1306 (Not Given - Provider: Odette Taylor RN - Reason: Patient/Resident/Agen t refused - education provided )2200 (Canceled Entry - Provider: Automatic Discharge Provider - Comment: Automatically canceled at discontinue of medication order) docusate sodium (COLACE) capsule 100 mg 100 mg, oral, 2 times daily, First dose on Tue07/04/25 at 1200 0823 (Not Given - Provider: Chana Vela RN - Reason: Patient/Resident/Ag ent refused - education provided )2103 (Not Given - Provider: Edith Townsend RN - Reason: Patient/Resident/Ag ent refused - education provided ) 0932 (Not Given - Provider: Roro Diallo RN - Reason: Patient/Resident/Agent refused - education provided )222 (Not Given - Provider: Edith Townsend RN - Reason: Patient/Resident/Agent refused - education provided ) 08 (Not Given - Provider: Odette Taylor RN - Reason: Patient/Resident/Agen t refused - education provided )2009 (Given - Provider: Berenice Zaldivar, RN) enoxaparin (LOVENOX) injection 40 mg 40 mg, subcutaneous, Every 24 hours scheduled, First dose on Tue07/03/25 at 1230, Indication: VTE/PE Prophylaxis 08 (Given - Provider: Chana Vela RN) 09 (Given - Provider: Roro Diallo RN) 08 (Given - Provider: Odette Taylor RN) ferrous sulfate tablet 325 mg 325 mg, oral, 2 times daily, First dose on Tue07/03/25 at 1230, Take on an empty stomach with a full glass of water, at least 1 hour before or 2 hours after a meal. May be taken with food if causes an upset stomach. Avoid taking antacids or antibiotics within 2 hours before or after. Ordered as ferrous sulfate. 325 mg ferrous sulfate = 65 mg elemental iron. 0823 (Given - Provider: Chana Vela RN)2303 (Given - Provider: Edith Townsend RN) 09 (Given - Provider: Roro Diallo RN)235 (Given - Provider: Edith Townsend RN) 08 (Given - Provider: Odette Taylor RN)2009 (Given - Provider: Berenice Zaldivar, AMBER) gabapentin (NEURONTIN) capsule 100 mg 100 mg, oral, Every 8 hours scheduled, First dose on Tue07/03/25 at 1215 0557 (Not Given - Provider: Edith Townsend RN - Reason: Patient/Resident/Ag ent refused - education provided )1451 (Not Given - Provider: Chana Vela RN - Reason: Patient/Resident/Ag ent refused - education provided )2103 (Not Given - Provider: Edith Townsend RN - Reason: Patient/Resident/Ag ent refused - education provided ) 0539 (Not Given - Provider: Edith Townsend RN - Reason: Patient/Resident/Agent refused - education provided )1409 (Not Given - Provider: Roro Diallo RN - Reason: Patient/Resident/Agent refused - education provided )2223 (Not Given - Provider: Edith Townsend RN - Reason: Patient/Resident/Agent refused - education provided ) 0548 (Not Given - Provider: Edith Townsend RN - Reason: Patient/Resident/Agen t refused - education provided )1306 (Not Given - Provider: Odette Taylor RN - Reason: Patient/Resident/Agen t refused - education provided )2200 (Canceled Entry - Provider: Automatic Discharge Provider - Comment: Automatically canceled at discontinue of medication order) ibuprofen (ADVIL,MOTRIN) tablet 400 mg (COMPLETED) 400 mg, oral, Once, On Tue07/15/25 at 1400, For 1 dose, Administer with food or milk to decrease GI upset 1454 (Given - Provider: Roro Diallo RN) methadone (DOLOPHINE) tablet 10 mg 10 mg, oral, Once, On Tue07/16/25 at 0915, For 1 dose 0933 (Not Given - Provider: Odette Taylor RN - Reason: Patient/Resident/Agen t refused - education provided ) methadone (DOLOPHINE) tablet 10 mg(Linked Group 1) 10 mg, oral, Daily, First dose on Tue07/17/25 at 0900, TOTAL DOSE = 50 MG methadone (METHADOSE) dispersible tablet 40 mg (CANCELED) 40 mg, oral, Daily, First dose on Tue07/15/25 at 1015, Disperse total dose in ~120 mL of water, orange juice, or other acidic fruit beverage prior to administration; if insoluble excipients remain and do not entirely dissolve, add a small amount of liquid to cup and administer remaining mixture. Do not chew or swallow tablet before dispersing in liquid. 1125 (Given - Provider: Roro Diallo RN) 0824 (Given - Provider: Odette Taylor RN) methadone (METHADOSE) dispersible tablet 40 mg(Linked Group 1) 40 mg, oral, Daily, First dose (after last reorder) on Tue07/17/25 at 0900, TOTAL DOSE = 50 MG Disperse total dose in ~120 mL of water, orange juice, or other acidic fruit beverage prior to administration; if insoluble excipients remain and do not entirely dissolve, add a small amount of liquid to cup and administer remaining mixture. Do not chew or swallow tablet before dispersing in liquid. pantoprazole (PROTONIX) EC tablet 40 mg 40 mg, oral, 2 times daily before meals, First dose on Tue07/15/25 at 1630, Do not crush, chew, or split. 1546 (Given - Provider: Roro Diallo RN) 0631 (Given - Provider: Edith Townsend RN)1705 (Not Given - Provider: Odette Taylor RN - Reason: Patient/Resident/Agen t refused - education provided ) sertraline (ZOLOFT) tablet 25 mg 25 mg, oral, Daily, First dose on Tue07/08/25 at 1630 0823 (Given - Provider: Chana Vela RN) 0931 (Given - Provider: Roro Diallo RN) 0824 (Given - Provider: Odette Taylor, RN) sodium chloride 0.9 % flush 10 mL(Linked Group 2) 10 mL, intravenous, 2 times daily, First dose on Tue07/04/25 at 2100 1000 (Given - Provider: Chana Vela RN)2054 (Given - Provider: Edith Townsend RN) 0931 (Given - Provider: Roro Diallo RN)2235 (Given - Provider: Edith Townsend RN) 0824 (Given - Provider: Odette Taylor, AMBER)2009 (Given - Provider: Berenice Zaldivar RN) vancomycin (VANCOCIN) 1,000 mg in sodium chloride 0.9 % 250 mL IVPB 1,000 mg, intravenous, at 250 mL/hr, Administer over 60 Minutes, Every 12 hours, First dose (after last modification) on Tue07/12/25 at 2300, For 99 doses, Indication: Bacteremia, Bone/Joint 0041 (Stopped - Provider: Edith Townsend RN)1138 (New Bag - Provider: Chana Vela RN)1314 (Stopped - Provider: Chana Vela RN)2304 (New Bag - Provider: Edith Townsend RN) 0031 (Stopped - Provider: Edith Townsend RN)1125 (New Bag - Provider: Roro Diallo, AMBER)1238 (Stopped - Provider: Roro Diallo, AMBER)2235 (New Bag - Provider: Edith Townsend RN)2349 (Stopped - Provider: Edith Townsend RN) 1046 (New Bag - Provider: Odette Taylor, AMBER)1222 (Stopped - Provider: Odette Taylor RN)2300 (Canceled Entry - Provider: Automatic Discharge Provider - Comment: Automatically canceled at discontinue of medication order) zolpidem (AMBIEN) tablet 5 mg (COMPLETED) 5 mg, oral, Nightly - one time, First dose on Tue07/15/25 at 2100, For 1 dose 2354 (Given - Provider: Edith Townsend RN) zolpidem (AMBIEN) tablet 5 mg 5 mg, oral, Nightly, First dose (after last reorder) on Tue07/16/25 at 2100, For 1 dose 2100 (Canceled Entry - Provider: Automatic Discharge Provider - Comment: Automatically canceled at discontinue of medication order) PRN Medication Order 07/14/2025 07/15/2025 07/16/2025 acetaminophen (TYLENOL) tablet 650 mg 650 mg, oral, Every 4 hours PRN, mild pain, headaches, fever - temperature GREATER than 38 C (100.4 F), Starting on Tue07/04/25 at 1922008 (Given - Provider: Berenice Zaldivar RN) aluminum-magnesium hydroxide-simethicone (MAALOX) 200-200-20 mg/5 mL suspension 10 mL 10 mL, oral, Every 6 hours PRN, indigestion, heartburn, Starting on Tue07/15/25 at 1338 1454 (Given - Provider: Roro Diallo, AMBER) calcium carbonate (TUMS) chewable tablet 1,000 mg 1,000 mg, oral, 4 times daily PRN, heartburn, indigestion, Starting on Tue07/11/25 at 0358, Ordered as calcium carbonate. 500 mg calcium carbonate = 200 mg elemental calcium. clonazePAM (KlonoPIN) tablet 0.5 mg 0.5 mg, oral, 2 times daily PRN, anxiety, Starting on 07/13/25 at 1029, Hazardous Medication Intact: - Single pair of ASTM standard [id number] certified gloves - Eye/face protection if vomit or potential to spit up Manipulated: - Double pair of ASTM standard [id number] certified gloves - Eye/face protection if vomit or potential to spit up - Staff at reproductive risk must also wear a hazardous gown - Crushing must be performed in sealed closed pouch - Splitting/cutting should be performed by pharmacy, if possible 0823 (Given - Provider: Chana Vela, AMBER)1636 (Given - Provider: Chana Vela RN) 022 (Given - Provider: Edith Townsend RN)2235 (Given - Provider: Edith Townsend RN) ondansetron (PF) (ZOFRAN) injection 4 mg(Linked Group 3) 4 mg, intravenous, Every 8 hours PRN, vomiting, nausea, Starting on Glory 07/04/25 at 1927, -ONLY give IV if patient is unable to take orally. -If inadequate response within 30 minutes, proceed to next-line agent or contact provider if no further options ordered. ondansetron ODT (ZOFRAN-ODT) disintegrating tablet 4 mg(Linked Group 3) 4 mg, oral, Every 8 hours PRN, vomiting, nausea, Starting on Glory 07/04/25 at 1927, -Give IV if patient is unable to take orally. -If inadequate response within 30 minutes, proceed to next-line agent or contact provider if no further options ordered. For ODT tablets: -Do not remove from blister pack until just before administering. -Patient should allow tablet to dissolve on tongue. oxyCODONE (ROXICODONE) immediate release tablet 10 mg(Linked Group 4) 10 mg, oral, Every 6 hours PRN, severe pain, Starting on Tue07/16/25 at 0802 2008 (Given - Provider: Berenice Zaldivar RN) oxyCODONE (ROXICODONE) immediate release tablet 5 mg (CANCELED) 5 mg, oral, Every 6 hours PRN, severe pain, Starting on Tue07/11/25 at 1401 0432 (Given - Provider: Edith Townsend, AMBER)1138 (Given - Provider: Chana Vela RN)2054 (Given - Provider: Edith Townsend RN) 0356 (Given - Provider: Edith Townsend RN)1325 (Given - Provider: Roro Diallo, RN)2354 (Given - Provider: Edith Townsend, AMBER) 0631 (Given - Provider: Edith Townsend RN) oxyCODONE (ROXICODONE) immediate release tablet 5 mg(Linked Group 4) 5 mg, oral, Every 6 hours PRN, moderate pain, Starting on Tue07/16/25 at 0802 2008 (See Alternativ e - Provider: Berenice Zaldivar RN) prochlorperazine (COMPAZINE) injection 10 mg(Linked Group 5) 10 mg, intravenous, Every 6 hours PRN, nausea, vomiting, Starting on Glory 07/04/25 at 1927, 2nd Line Option: -ONLY give IV if patient is unable to take orally. -Give IM if patient does not have IV Access -If inadequate response within 30 minutes, proceed to next-line agent or contact provider if no further options ordered. prochlorperazine (COMPAZINE) suppository 25 mg(Linked Group 5) 25 mg, rectal, Every 12 hours PRN, nausea, vomiting, Starting on Glory 07/04/25 at 1927, 2nd Line Option: -ONLY give CO if patient is unable to take orally and cannot receive IV/IM. -If inadequate response within 30 minutes, proceed to next-line agent or contact provider if no further options ordered. prochlorperazine (COMPAZINE) tablet 10 mg(Linked Group 5) 10 mg, oral, Every 6 hours PRN, nausea, vomiting, Starting on Glory 07/04/25 at 1927, 2nd Line Option: -Give IV or IM if patient is unable to take orally. -If inadequate response within 30 minutes, proceed to next-line agent or contact provider if no further options ordered. sodium chloride 0.9 % flush 10 mL(Linked Group 2) 10 mL, intravenous, As needed, line care, Starting on Gloyr 07/04/25 at 1927 sodium chloride 0.9 % infusion 42 mL/hr, intravenous, As needed, pre-, and post- transfusion as needed for line flush purposes, in conjunction with blood product transfusion only, Starting on Tue07/02/25 at 203, -Use only the amount required from a 250 mL bag of NS to adequately flush -A new NS bag is required with each new unit of blood administered traZODone (DESYREL) tablet 25 mg 25 mg, oral, Nightly PRN, sleep, Starting on Tue07/11/25 at 1401 Linked Groups Order Group 1: methadone (METHADOSE) dispersible tablet 40 mgJump to med 40 mg, oral, Daily, First dose (after last reorder) on Tue07/17/25 at 0900, TOTAL DOSE = 50 MG Disperse total dose in ~120 mL of water, orange juice, or other acidic fruit beverage prior to administration; if insoluble excipients remain and do not entirely dissolve, add a small amount of liquid to cup and administer remaining mixture. Do not chew or swallow tablet before dispersing in liquid. And methadone (DOLOPHINE) tablet 10 mgJump to med 10 mg, oral, Daily, First dose on Tue07/17/25 at 0900, TOTAL DOSE = 50 MG Group 2: Insert peripheral IV (CANCELED) STAT, Once, On Tue07/04/25 at 192, For 1 occurrence And Maintain IV access (CANCELED) Until discontinued, Starting on Tue07/04/25 at 192, Until Specified And Saline lock IV (CANCELED) Routine, Once, On Tue07/04/25 at 1927, For 1 occurrence And sodium chloride 0.9 % flush 10 mLJump to med 10 mL, intravenous, 2 times daily, First dose on Tue07/04/25 at 2100 And sodium chloride 0.9 % flush 10 mLJump to med 10 mL, intravenous, As needed, line care, Starting on Tue07/04/25 at 192 Group 3: ondansetron ODT (ZOFRAN-ODT) disintegrating tablet 4 mgJump to med 4 mg, oral, Every 8 hours PRN, vomiting, nausea, Starting on Tue07/04/25 at 192, -Give IV if patient is unable to take orally. -If inadequate response within 30 minutes, proceed to next-line agent or contact provider if no further options ordered. For ODT tablets: -Do not remove from blister pack until just before administering. -Patient should allow tablet to dissolve on tongue. Or ondansetron (PF) (ZOFRAN) injection 4 mgJump to med 4 mg, intravenous, Every 8 hours PRN, vomiting, nausea, Starting on Glory 07/04/25 at 1927, -ONLY give IV if patient is unable to take orally. -If inadequate response within 30 minutes, proceed to next-line agent or contact provider if no further options ordered. Group 4: oxyCODONE (ROXICODONE) immediate release tablet 5 mgJump to med 5 mg, oral, Every 6 hours PRN, moderate pain, Starting on Tue07/16/25 at 0802 Or oxyCODONE (ROXICODONE) immediate release tablet 10 mgJump to med 10 mg, oral, Every 6 hours PRN, severe pain, Starting on Tue07/16/25 at 0802 Group 5: prochlorperazine (COMPAZINE) tablet 10 mgJump to med 10 mg, oral, Every 6 hours PRN, nausea, vomiting, Starting on Glory 07/04/25 at 1927, 2nd Line Option: -Give IV or IM if patient is unable to take orally. -If inadequate response within 30 minutes, proceed to next-line agent or contact provider if no further options ordered. Or prochlorperazine (COMPAZINE) injection 10 mgJump to med 10 mg, intravenous, Every 6 hours PRN, nausea, vomiting, Starting on Glory 07/04/25 at 1927, 2nd Line Option: -ONLY give IV if patient is unable to take orally. -Give IM if patient does not have IV Access -If inadequate response within 30 minutes, proceed to next-line agent or contact provider if no further options ordered. Or prochlorperazine (COMPAZINE) suppository 25 mgJump to med 25 mg, rectal, Every 12 hours PRN, nausea, vomiting, Starting on Glory 07/04/25 at 1927, 2nd Line Option: -ONLY give CO if patient is unable to take orally and cannot receive IV/IM. -If inadequate response within 30 minutes, proceed to next-line agent or contact provider if no further options ordered. documented in this encounter Orders Medications Ordered That Mehul ht Not Have Been Administered Count Last Ordered Date First Ordered Date methadone (DOLOPHINE) tablet 10 mg 4 202407/02/2025 methadone (METHADOSE) disper sible tablet 40 mg 1 07/16/2025 methadone (METHADOSE) disper sible tablet 50 mg 1 07/16/2025 oxyCODONE (ROXICODONE) immed iate release tablet 5 mg 2 07/16/2025 07/09/2025 zolpidem (AMBIEN) tablet 5 mg 1 07/16/2025 cariprazine (VRAYLAR) capsule 1.5 mg 1 07/06 traZODone (DESYREL) tablet 25 mg 1 07/11/20 25 methadone (DOLOPHINE) tablet 30 mg 1 2024 prochlorperazine (COMPAZINE) suppository 25 mg 1 07/04/2025 prochlorperazine (COMPAZINE) tablet 10 mg 1 07/04/2025 sodium chloride 0.9 % flush 10 mL 1 025 gabapentin (NEURONTIN) capsule 100 mg 1 zolpidem (AMBIEN) tablet 10 mg 1 2025 haloperidol lactate (HALDOL) injection 2 mg 1 07/02/2025 HYDROmorphone (DILAUDID) injection 1 mg 1 1 hydrOXYzine HCL (ATARAX) tablet 50 mg 1 hydrOXYzine pamoate (VISTARI L) capsule 25 mg 1 07/02/2025 methadone (DOLOPHINE) injection 20 mg 1 piperacillin-tazobactam (ZOS YN) 3.375 g in sodium chloride 0.9 % 100 mL IVPB 3 07/02/2025 piperacillin-tazobactam (ZOS YN) 4.5 g in sodium chloride 0.9 % 100 mL IVPB 1 07/02/2025 sodium chloride 0.9 % infusion 1 07/02/2025 Diet Count Last Ordered Date First Orde red Date ADULT DISCHARGE DIET 1 07/11/2025 Nursing Count Last Ordered Date First Orde red Date ACTIVITY 1 07/11/2025 FOLLOW UP PRIMARY PHYSICIAN 1 07/11/2025 FOLLOW UP WITH PROVIDER 1 07/11/2025 Consult Count Last Ordered Date First Orde red Date IP CONSULT TO PSYCHIATRY 1 07/15/2025 IP CONSULT TO IV TEAM 1 07/09/2025 IP CONSULT TO NEUROSURGERY 1 07/04/2025 IP CONSULT TO ADDICTION MEDICINE 1 07/03/20 IP CONSULT TO INFECTIOUS DISEASES 1 025 Admission Count Last Ordered Date First Orde red Date ADMIT TO INPATIENT 1 07/02/2025 Discharge Count Last Ordered Date First Orde red Date DISCHARGE PATIENT 3 07/16/2025 07/11/2025 documented in this encounter Additional Health Concerns Infection Onset Date Last Indicated Resolved Time MRSA Comment:Facility does not currently isolate for MRSA. 06/30/2025 06/30/2025 2025 9:40 AM E DT MRSA Comment:Facility does not currently isolate for MRSA. 07/02/2025 2025 07/08/2025 9:[address] MRSA Comment:Facility does not currently isolate for MRSA. 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
--- NOTE | ~2025-07-17 | IR_ITS ---
PROCEDURE: IR INSERTION OF TUNNEL CATHETER CLINICAL INFORMATION: Needs long-term IV antibiotics for diffuse sepsis. COMPARISON: None available. TECHNIQUE: Following explaining ultrasound and fluoroscopy-guided placement of a right Amos catheter procedure, benefits and risk, a written consent was obtained. In the ultrasound imaging was obtained the right neck and an optimal site was selected along the right anterolateral neck and marked on the skin. Marked site adnexa was and right chest wall was cleaned and draped in usual sterile manner. 1% lidocaine was injected puncture site. Under sterile ultrasound guidance a singlewall needle was advanced and right jugular vein was punctured. After obtaining venous return a thin guidewire was advanced and needle withdrawn. A 3 Nicaraguan dilator was placed and the entire unit was anchored to the skin with hemostats. Approximately 1 gauze length from the right neck 1% lidocaine was injected at the right anterior chest wall and a small skin incision was performed. 1% lidocaine was inserted from the anterior chest wall to the right neck incision subcutaneously. A tunneler attached to the Amos catheter was advanced blindly from the right anterior chest wall incision to the right jugular vein and was pulled through the right neck incision. The catheter was sized to 25 cm length. At the right neck the dilator was removed from the sheath and a long 0.035 J-wire was advanced through the sheath into the IVC under fluoroscopy guidance. A 5 Nicaraguan sheath with the dilator was then advanced over the guidewire. The dilator and the guidewire was removed and precut Amos catheter was advanced through the peel-away sheath into the proximal SVC. The peel-away sheath was removed as the catheter was advanced. A single image was obtained revealing the catheter tip in mid SVC. The catheter was flushed with saline followed by heparin. The cuff of the catheter lies within the skin incision and not visualized. Simple absorbable sutures were placed along the right anterior neck and nonabsorbable sutures anchoring the Amos to the skin. Sterile dressing applied post procedure. Patient tolerated procedure extremely well.. All elements of maximal sterile barrier technique followed including use of cap, mask, sterile gown, sterile gloves, a sterile full body drape and hand hygiene. Also followed skin preparation with 2% chlorhexidine for cutaneous antisepsis, and sterile ultrasound preparation with sterile gel and probe cover when applicable. On the IV fentanyl was administered during the exam. Patient was monitored by IR nurse and IR physician. FINDINGS: On preliminary ultrasound imaging there is widely patent right jugular vein. Approximately 25 CM in length 5 Nicaraguan Amos tunneled catheter was placed with its tip in mid SVC. The catheter is ready for use. IR/IR cvc insert central tunnel IMPRESSION: Successful ultrasound and fluoroscopy-guided placement of 5 Nicaraguan tunneled catheter with its tip in mid SVC ready for use. Fluoroscopy time: 0.3 minutes. Dose: 2.3 mGy Electronically signed by: Star Benítez MD 07/22/2025 02:59 PM EST
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
[2025-07-17 14:41] VITALS: BP 159/98; PULSE 108; RESP 20; TEMP 37.1; O2SAT 100; BMI 23.4
[2025-07-17 14:41] LABS: Appearance Urine Clear; Glucose Urine UA Negative (Negative); PH 6.0 (5.0-9.0); Specific Gravity - Urine 1.020 (1.005-1.025); UMIC TRIGGER UACC YES
[2025-07-17 14:48] VITALS: BP 159/98; PULSE 108; RESP 20; TEMP 37.1; O2SAT 100
[2025-07-17 14:49] LABS: MANUAL DIFF FLAG NO
[2025-07-17 14:50] LABS: Hematocrit 31.0 % (37.0-47.0); Hemoglobin 9.0 g/dl (12.0-16.0); Imm Gran Abs Auto 0.00 X10*3/uL (0.00-0.03); Imm Gran Pct Auto 0.0 % (0.0-0.4); Lymphocytes Absolute Auto 0.9 X10*3/uL (1.2-4.9); Mean Corpuscular HGB Conc 29.0 g/dl (31.0-35.0); Mean Corpuscular Hemoglobin 22.0 pg (27.0-33.0); Mean Corpuscular Volume 75.8 fL (80.0-98.0); NRBC Abs Auto 0.000 X10*3/uL (0.0-0.012); NRBC Pct Auto 0.0 /100WBC (0.0-0.2); Platelet Count 236 X10*3/uL (160-400); Red Blood Count 4.09 X10*6/uL (4.20-5.50); White Blood Count 4.5 X10*3/uL (4.8-10.8)
[2025-07-17 14:53] LABS: Cannabinoid Screen Urine Not Detected (Not Detect)
[2025-07-17 15:15] LABS: Alanine Aminotransferase 15 U/L (0-31); Albumin Level 4.3 g/dL (3.5-5.0); Alkaline Phosphatase 79 U/L (39-117); Anion Gap 11 (12-20); Aspartate Amino Transferase 32 U/L (5-31); Blood Urea Nitrogen 20 mg/dL (9-16); Calcium 9.2 mg/dL (8.4-10.2); Carbon Dioxide 27 mmol/L (22-29); Chloride 104 mmol/L (96-108); Creatinine Clr Calc Pharmacy 71.6; Estimated Glomerular Filt Rate > 60; Lipase 7 U/L (8-78); Magnesium 1.9 mg/dL (1.6-2.6); Potassium 3.6 mmol/L (3.3-5.1); Sodium 138 mmol/L (135-145); Total Protein 8.9 g/dL (6.5-8.0)
[2025-07-17 15:30] LABS: Salicylate < 5.0 mg/dL (15-30)
--- NOTE | 2025-07-17 17:08 | PC.NURSE ---
This RN attempted to verify Methadone dose given at [facility]. Spoke with AMBER Moran at [facility]. States no Methadone was given, [facility] was ordered for 50mg but never given. States patient eloped from floor with PICC line in place and then returned to have removed.
--- NOTE | 2025-07-17 17:24 | MHC.CM.ED ---
Addendum entered by Isabela Cooper 07/17/25 21:20: Pt will be a medical admit. Will need additional 6 weeks of IV antibiotics per Dr. Silver. HX IV drug s Addendum entered by Isabela Cooper 07/17/25 18:09: Pt seen by CARE team. Not yet medically cleared. Pt will probably be either a inpatient psych admit vs medical admission. CM will defer at this time. Original Note: CM obtained Discharge summary/last note from Shara MALDONADO. Given to Dr. Lux. Awaiting CARE team consult.
--- OUTSIDE RECORDS SUMMARY | 2025-07-17 18:26 | XMS_ITS | Clinical Summary ---
Author Organization [facility] Address [address] [place] [address] Phone Care Team Providers Care Instructor Watch Assembly Name Role Phone Physician, Pcp Unknown Primary Care Provider Talia vailable Allergies Active Allergy Reactions Criticality Noted Date Comments Benadryl Allergy Decongestant 2024 Hydroxyzine Angioedema High 07/02/2025 Risperidone 06/30/2025 Medications acetaminophen (TYLENOL) 325 mg tablet Take 2 tablets (650 mg total) by mouth every 4 (four) hours if needed for mild pain, headaches or fever - temperature GREATER than 38 C (100.4 F) for up to 10 days. 5 07/21/20 25 Active ascorbic acid (VITAMIN C) 250 mg tablet Take 1 tablet (250 mg total) by mouth 1 (one) time each day. 5 08/11/20 25 Active buprenorphine- naloxone (SUBOXONE) 2-0.5 [address] tablet Place 1 tablet under the tongue 2 (two) times a day. After the medication is completely dissolved, take a large sip of water, swish it around teeth and gums, and swallow. Wait at least 1 hour before brushing teeth to avoid damage to your teeth. Max Daily Amount: 2 tablets 5 01/08/20 26 Active ferrous sulfate 325 mg (65 mg elemental iron) tablet Take 1 tablet (325 mg total) by mouth 2 (two) times a day. 5 07/11/20 26 Active gabapentin (NEURONTIN) 100 mg capsule Take 1 capsule (100 mg total) by mouth every 8 (eight) hours. 5 07/11/20 26 Active sertraline (ZOLOFT) 25 mg tablet Take 1 tablet (25 mg total) by mouth 1 (one) time each day. 5 07/12/20 Active vancomycin 750 mg in sodium chloride 0.9 % 250 mL IVPB Infuse 750 mg into a venous catheter every 12 (twelve) hours for 101 doses. 5 08/31/20 Active traZODone (DESYREL) 50 mg tablet Take 0.5 tablets (25 mg total) by mouth at bedtime as needed for sleep. 5 08/11/20 Active aluminum-magne sium hydroxide-marty thicone (MAALOX) 200-200-20 mg/5 mL suspension Take 10 mL by mouth 4 (four) times a day (before meals and nightly) for 5 days. 5 07/21/20 Active cariprazine (VRAYLAR) 1.5 mg capsule Take 1 capsule (1.5 mg total) by mouth 1 (one) time each day for 14 days. 5 07/31/20 Active methadone (DOLOPHINE) 10 mg tabletIndicati ons:Septic arthritis of lumbar spine (CMS/[facility] V24) Take 5 tablets (50 mg total) by mouth 1 (one) time each day. Max Daily Amount: 50 mg Active oxyCODONE (ROXICODONE) 5 mg immediate release tabletIndicati ons:Septic arthritis of lumbar spine (CMS/HCC V24) Take 1 tablet (5 mg total) by mouth 3 (three) times a day if needed for moderate pain or severe pain for up to 2 days. Max Daily Amount: 15 mg 6 tablet 5 07/18/20 25 Active zolpidem (AMBIEN) 10 mg tablet Take 1 tablet (10 mg total) by mouth at bedtime as needed for sleep. 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) 1 Bacteremia 07/01/2025 Low back pain 06/30/2025 Encounters Date Type Department Care Team Description 07/02/2025 5:59 PM EDT - 07/16/2025 11:00 PM EST Hospital Encounter [facility] [address] [place] [phone] Adrian Rodriguez MD Jones, Christopher, MD Bukalo, Nermina, MD Surendran, Anupama, MD Rasul, Yar M, MD Seralathan, Manikandan, MD Sepsis due to methicillin resistant Staphylococcus aureus (MRSA) without acute organ dysfunction (CMS/[facility] V24, [facility] V28) (Primary Dx); Bacteremia; Septic arthritis of intervertebral joint ([facility] V24); Septic arthritis of lumbar spine ([facility] V24) Discharge Disposition: Left Against Medical Advice 06/30/2025 7:05 AM EDT - 07/02/2025 9:06 AM EDT Hospital Encounter [facility] [address] [place] [phone] Enriqueta Dunaway MD Alam, Aroosa, MD Symptomatic anemia (Primary Dx); Bilateral low back pain without sciatica, unspecified chronicity; Bacteremia; Low back pain Discharge Disposition: Left Against Medical Advice from Last 3 Months Medical History Medical History Date Comments Anemia Disease of thyroid gland Social History Tobacco Use Types Packs/Day Years Used Date Smoking Tobacco: Never Smokeless Tobacco: Never Tobacco Cessation:Counseling Given: Not Answered Food Risk Answer Date Recorded Within the [...] on file Sexual Orientation Not on file Obstetrics History Last Filed Vital Signs Vital Sign Reading [...] Mass Index 23.28 07/02/2025 9:13 PM EDT Plan of Treatment Health Maintenance Due Date Last Done Comments Breast Cancer Screening 1977 Colorectal Cancer Screening: Colonoscopy 1977 DTaP,Tdap,and Td Vaccines (1 - Tdap) 1996 Hepatitis A Vaccines (1 of 2 - Risk 2-dose series) 1996 Hepatitis B Vaccines (1 of 3 - 19+ 3-dose series) 1996 Pneumococcal Vaccine: Pediatrics (0 to 5 Years) and At-Risk Patients (6 to 49 Years) (1 of 2 - PCV) 1996 Cervical Cancer Screening: P ap Smear 1998 Depression Screening 09/05/2024 COVID-19 Vaccine (1 - 2024-2 6 season) 2025 Influenza Vaccine (#1) 2025 Medicare Annual Wellness Visit 06/30/2025 Social Influencers of Health Screening 07/10/2026 07/10/2025 RSV Immunization Adult Patients (1 - 1-dose 75+ series) 2052 HIV Screening Completed 2025 Hepatitis C Screening Completed 07/04/2025 , 2025 HIB Vaccines Aged Out No longer eligi ble based on patient's age to complete this topic HPV Vaccines Aged Out No longer eligi ble based on patient's age to complete this topic IPV Vaccines Aged Out No longer eligi ble based on patient's age to complete this topic MMR Vaccines Aged Out No longer eligi ble based on patient's age to complete this topic Meningococcal ACWY Vaccine Aged Out N o longer eligible based on patient's age to complete this topic Meningococcal B Vaccine Aged Out No l onger eligible based on patient's age to complete this topic RSV Immunization Patients Under 20 months Aged Out No longer eligible b ased on patient's age to complete this topic Varicella Vaccines Aged Out No longer eligible based on patient's age to complete this topic Procedures Procedure Name Priority Date/Time Associated Diagnosis [...] AUTO DIFFERENTIAL Routine 07/08/2025 6:02 AM EST MAGNESIUM Timed 07/08/2025 6:02 AM EST CBC AND DIFFERENTIAL Routine 07/08/2025 6:02 AM EST BASIC METABOLIC PANEL Routine 07/08/2025 6:02 AM EST VANCOMYCIN, TROUGH Timed 07/07/2025 10 :12 PM EST VAS US DUPLEX UPPER EXT VENOUS LEFT STAT 07/07/2025 5:38 PM EST Bacteremia CBC WITH AUTO DIFFERENTIAL Routine 07/07/2025 6:06 AM EST MAGNESIUM Timed 07/07/2025 6:06 AM EST CBC AND DIFFERENTIAL Routine 07/07/2025 6:06 AM EST BASIC METABOLIC PANEL Routine 07/07/2025 6:06 AM EST VANCOMYCIN, TROUGH Timed 07/06/2025 9: 51 AM EDT MA IMMUNOFIXATION ELECTROPHORESIS SERUM Routine 07/06/2025 5:46 AM EDT MA PROTEIN ELECTROPHORETIC FRACTIONATION & QUANTITATION SERUM Routine 07/06/2025 5:46 AM EDT IMMUNOGLOBULINS IGG, IGA, IGM Routine 07/06/2025 5:46 AM EDT IMMUNOFIXATION ELECTROPHORESIS Routine 07/06/2025 5:46 AM EDT IMMUNOFIXATION ELECTROPHORESIS Routine 07/06/2025 5:46 AM EDT PROTEIN, TOTAL Routine 07/06/2025 5:46 AM EDT CBC WITH AUTO DIFFERENTIAL Routine 07/06/2025 5:46 AM EDT HEMOGLOBIN ELECTROPHORESIS Routine 07/06/2025 5:46 AM EDT IRON Routine 07/06/2025 5:46 AM EDT PROTEIN ELECTROPHORESIS, SERUM Routine 07/06/2025 5:46 AM EDT MAGNESIUM Timed 07/06/2025 5:46 AM EDT CBC AND DIFFERENTIAL Routine 07/06/2025 5:46 AM EDT BASIC METABOLIC PANEL Routine 07/06/2025 5:46 AM EDT SALAS URINE CULTURE TUBE Routine 07/05/20 3:58 PM EDT URINALYSIS WITH REFLEX MICROSCOPIC AND CULTURE Routine 07/05/2025 3:58 PM EDT URINALYSIS WITH REFLEX MICROSCOPIC AND CULTURE Routine 07/05/2025 3:58 PM EDT CULTURE URINE Routine 07/05/2025 3:58 PM EDT CHLAMYDIA TRACHOMATIS AND NEISSERIA GONORRHOEAE PCR Routine 07/05/2025 3:58 PM EDT CULTURE BLOOD STAT 07/05/2025 11:20 AM EDT CULTURE BLOOD STAT 07/05/2025 11:00 AM EDT HEPATIC FUNCTION PANEL Add-On 6:36 AM EDT LACTATE DEHYDROGENASE Add-On 07/05/2025 6:36 AM EDT HAPTOGLOBIN Add-On 07/05/2025 6:36 AM EDT CBC WITH AUTO DIFFERENTIAL Routine 07/05/2025 6:36 AM EDT MAGNESIUM Timed 07/05/2025 6:36 AM EDT CBC AND DIFFERENTIAL Routine 07/05/2025 6:36 AM EDT BASIC METABOLIC PANEL Routine 07/05/2025 6:36 AM EDT AST, ALT, BILIRUBIN ELR STATE REPORTABLES Routine 07/04/2025 11:48 AM EDT HEPATITIS C VIRUS QUANTITATIVE PCR Routine 07/04/2025 11:48 AM EDT VANCOMYCIN, TROUGH Timed 07/04/2025 8: 45 AM EDT CBC WITH AUTO DIFFERENTIAL Routine 07/04/2025 8:45 AM EDT MAGNESIUM Timed 07/04/2025 8:45 AM EDT CBC AND DIFFERENTIAL Routine 07/04/2025 8:45 AM EDT BASIC METABOLIC PANEL Routine 07/04/2025 8:45 AM EDT CULTURE BLOOD STAT 2025 2:28 PM EDT BLOOD CULTURE PATHOGENS BY PCR Routine 2025 1:35 PM EDT CULTURE BLOOD STAT 2025 1:35 PM EDT AST, ALT, BILIRUBIN ELR STATE REPORTABLES Routine 2025 6:10 AM EDT HEPATITIS B SURFACE ANTIGEN WITH CONFIRMATION Add-On 2025 6:10 AM EDT HEPATITIS C ANTIBODY Add-On 2025 6:10 AM EDT HIV 1, 2 ANTIBODY, P24 ANTIGEN WITH REFLEX TO DIFFERENTIATION Add-On 2025 6:10 AM EDT CBC WITH AUTO DIFFERENTIAL Routine 2025 6:10 AM EDT MAGNESIUM Timed 2025 6:10 AM EDT CBC AND DIFFERENTIAL Routine 2025 6:10 AM EDT BASIC METABOLIC PANEL Routine 2025 6:10 AM EDT TRANSFUSE RED BLOOD CELLS Routine 2025 2:07 AM EDT PREPARE RBC Routine 07/02/2025 8:35 PM EDT C-REACTIVE PROTEIN Add-On 07/02/2025 8: 17 PM EDT COMPREHENSIVE METABOLIC PANEL STAT 07/02/2025 8:17 PM EDT CBC WITH AUTO DIFFERENTIAL STAT 07/02/2025 7:35 PM EDT CBC AND DIFFERENTIAL STAT 07/02/2025 7:35 PM EDT CULTURE BLOOD STAT 07/02/2025 7:35 PM EDT PREPARE RBC Routine 07/02/2025 8:01 AM EDT HEPATIC FUNCTION PANEL STAT Add-on 6:54 AM EDT HAPTOGLOBIN Add-On 07/02/2025 6:54 AM EDT LACTATE DEHYDROGENASE STAT Add-on 07/02/2025 6:54 AM EDT CBC WITH AUTO DIFFERENTIAL Routine 07/02/2025 6:54 AM EDT MAGNESIUM Timed 07/02/2025 6:54 AM EDT CBC AND DIFFERENTIAL Routine 07/02/2025 6:54 AM EDT BASIC METABOLIC PANEL Routine 07/02/2025 6:54 AM EDT VANCOMYCIN, TROUGH Timed 07/01/2025 11 :13 PM EDT MR LUMBAR SPINE WO AND W CONTRAST STAT 07/01/2025 5:57 PM EDT TRANSTHORACIC ECHOCARDIOGRAM (TTE) COMPLETE Routine 07/01/2025 11:06 AM EDT Bacteremia CULTURE BLOOD STAT 07/01/2025 8:33 AM EDT CULTURE BLOOD STAT 07/01/2025 8:28 AM EDT THYROID STIMULATING HORMONE WITH REFLEX TO FREE T4 AND FREE T3 Add-On 07/01/2025 7:04 AM EDT COMPLETE BLOOD COUNT Routine 07/01/2025 7:04 AM EDT BASIC METABOLIC PANEL Routine 07/01/2025 7:04 AM EDT SALAS URINE CULTURE TUBE Routine 07/01/20 2:41 AM EDT URINALYSIS WITH REFLEX MICROSCOPIC AND CULTURE Routine 07/01/2025 2:41 AM EDT FENTANYL AND METABOLITE, QUANTITATIVE, URINE STAT 07/01/2025 2:41 AM EDT METHADONE CONFIRMATION, URINE Routine 07/01/2025 2:41 AM EDT DRUG ABUSE SCREEN 8A PANEL, URINE Routine 07/01/2025 2:41 AM EDT URINALYSIS WITH REFLEX MICROSCOPIC AND CULTURE Routine 07/01/2025 2:41 AM EDT CULTURE URINE Routine 07/01/2025 2:41 AM EDT SST - GOLD Routine 06/30/2025 6:18 PM EDT EXTRA TUBES Routine 06/30/2025 6:18 PM EDT SOLUBLE TRANSFERRIN RECEPTOR Routine 06/30/2025 6:18 PM EDT HEMOGLOBIN AND HEMATOCRIT Routine 06/30/2025 6:03 PM EDT TRANSFUSE RED BLOOD CELLS STAT 06/30/2025 12:18 PM EDT TYPE AND SCREEN STAT 06/30/2025 10:18 AM EDT PREPARE RBC STAT 06/30/2025 10:01 AM EDT CULTURE BLOOD STAT 06/30/2025 9:03 AM EDT XR LUMBAR SPINE 2-3 VIEWS STAT 06/30/2025 8:59 AM EDT HCG, QUANTITATIVE STAT Add-on 06/30/2025 7:4 6 AM EDT ETHANOL STAT Add-on 06/30/2025 7:46 AM EDT VITAMIN B12 Add-On 06/30/2025 7:46 AM EDT IRON AND TIBC Add-On 06/30/2025 7:46 AM EDT FOLATE Add-On 06/30/2025 7:46 AM EDT FERRITIN Add-On 06/30/2025 7:46 AM EDT C-REACTIVE PROTEIN STAT Add-on 06/30/2025 7: 46 AM EDT SEDIMENTATION RATE STAT Add-on 06/30/2025 7: 46 AM EDT CBC WITH AUTO DIFFERENTIAL STAT 06/30/2025 7:46 AM EDT BASIC METABOLIC PANEL STAT 06/30/2025 7:46 AM EDT CBC AND DIFFERENTIAL STAT 06/30/2025 7:46 AM EDT BLOOD CULTURE PATHOGENS BY PCR Routine 06/30/2025 7:46 AM EDT CULTURE BLOOD STAT 06/30/2025 7:46 AM EDT from Last 3 Months Results * Creatinine serum (07/13/2025 10:28 PM EST) Only the most recent of2 resultswithin the time period is included. Creatinine 0.74 0.50 - 1.10 mg/dL LAB CHEMISTRY METHOD 07/13/2025 10:59 PM EST [facility] eGFR 100 >=60 mL/min/1. 73m2 LAB CHEMISTRY METHOD 07/13/2025 10:59 PM EST [facility] Comment:Calculation based on the Chronic Kidney Disease Epidemiology Collaboration (CKD-EPI) equation refit without adjustment for race. Blood Venous blood specimen / Unknown Venipuncture / Unknown 07/13/2025 10:28 PM EST 07/13/2025 10:37 PM EST us Prabhjot Neely MD LAB BLOOD ORDERABLES Final Resul t Performing Organization Address City/[facility]/ZIP Co de Phone Number [facility] [address] [place] [address], [place] [phone] * Vancomycin, trough New vanco trough prior to dose. (07/13/2025 10:28 PM EST) Only the most recent of7 resultswithin the time period is included. Vancomycin Trough 14.8 10.0 - 20.0 mcg/mL LAB CHEMISTRY METHOD 07/13/2025 10:59 PM EST [facility] Blood Venous blood specimen / Unknown Venipuncture / Unknown 07/13/2025 10:28 PM EST 07/13/2025 10:37 PM EST us Prabhjot Neely MD LAB BLOOD ORDERABLES Final Resul t Performing Organization Address [facility]/ZIP Co de Phone Number [facility] [address] [place] [address], [place] [phone] * Insert PICC line (07/09/2025 9:12 PM EST) Narrative Kathy Garcia RN - 07/09/2025 9:12 PM EST Kathy Garcia RN 07/09/2025 9:16 PM PICC Line Insertion Procedure Note Procedure: Insertion of 4F single lumen Bard PowerPICC Lot: [id number] Exp: Indications: Vancomycin IV until08/30/25 Procedure Details: Informed [...] Brochure given to patient with teaching instruction. us Prabhjot Neely MD IV THERAPY ORDERABLES Final Resu lt * (ABNORMAL) CBC auto differential (07/08/2025 6:02 AM EST) Only the most recent of9 resultswithin the time period is included. Pathologist [facility] WBC 5.1 4.8 - 10.8 K/mcL LAB HEMETOLOGY METHOD 07/08/2025 6:53 AM [facility] RBC 3.70(L) 3.80 - 4.80 M/mcL LAB HEMETOLOGY METHOD 07/08/2025 6:53 AM [facility] Hemoglobin 7.6(L) 11.5 - 16.0 g/dL LAB HEMETOLOGY METHOD 07/08/2025 6:53 AM [facility] Hematocrit 26.7(L) 35.0 - 47.0 % LAB HEMETOLOGY METHOD 07/08/2025 6:53 AM [facility] MCV 72.8(L) 79.0 - 98.0 FL LAB HEMETOLOGY METHOD 07/08/2025 6:53 AM [facility] MCH 20.7(L) 27.0 - 32.0 pcg LAB HEMETOLOGY METHOD 07/08/2025 6:53 AM [facility] MCHC 28.5(L) 32.0 - 37.0 g/dL LAB HEMETOLOGY METHOD 07/08/2025 6:53 AM [facility] RDW 21.8(H) 11.0 - 15.0 % LAB HEMETOLOGY METHOD 07/08/2025 6:53 AM [facility] Platelets 314 130 - 400 K/mcL LAB HEMETOLOGY METHOD 07/08/2025 6:53 AM [facility] MPV 9.8 7.0 - 11.0 FL LAB HEMETOLOGY METHOD 07/08/2025 6:53 AM [facility] NRBC 0.0 <1.0 % LAB HEMETOLOGY METHOD 07/08/2025 6:53 AM [facility] NRBC Absolute 0.00 <0.10 K/mcL LAB HEMETOLOGY METHOD 07/08/2025 6:53 AM [facility] Neutrophils Relative 57.9 % LAB HEMETOLOGY METHOD 07/08/2025 6:53 AM [facility] Lymphocytes Relative 28.3 % LAB HEMETOLOGY METHOD 07/08/2025 6:53 AM [facility] Monocytes Relative 7.9 % LAB HEMETOLOGY METHOD 07/08/2025 6:53 AM [facility] Eosinophils Relative 4.1 % LAB HEMETOLOGY METHOD 07/08/2025 6:53 AM [facility] Basophils Relative 1.4 % LAB HEMETOLOGY METHOD 07/08/2025 6:53 AM [facility] Immature Granulocytes Relative 0.4 % LAB HEMETOLOGY METHOD 07/08/2025 6:53 AM [facility] Neutrophils Absolute 2.94 1.50 - 7.00 K/mcL LAB HEMETOLOGY METHOD 07/08/2025 6:53 AM [facility] Lymphocytes Absolute 1.44 1.00 - 5.00 K/mcL LAB HEMETOLOGY METHOD 07/08/2025 6:53 AM [facility] Monocytes Absolute 0.40 0.20 - 1.00 K/mcL LAB HEMETOLOGY METHOD 07/08/2025 6:53 AM [facility] Eosinophils Absolute 0.21 0.00 - 0.50 K/mcL LAB HEMETOLOGY METHOD 07/08/2025 6:53 AM EST [facility] Basophils Absolute 0.07 0.00 - 0.20 K/[facility] LAB HEMETOLOGY METHOD 07/08/2025 6:53 AM EST [facility] Immature Granulocytes Absolute 0.02 0.00 - 0.03 K/[facility] LAB HEMETOLOGY METHOD 07/08/2025 6:53 AM EST [facility] Blood Venous blood specimen / Unknown Venipuncture / Unknown 07/08/2025 6:02 AM EST 07/08/2025 6:31 AM EST Gwendolyn BURKS LAB BLOOD ORDERABLES Final Result Performing Organization Address [facility] Co de Phone Number [facility] [address] [place] [address], [place] [phone] * Magnesium (07/08/2025 6:02 AM EST) Only the most recent of7 resultswithin the time period is included. Magnesium 2.2 1.9 - 2.6 mg/dL LAB CHEMISTRY METHOD 07/08/2025 7:19 AM EST [facility] Blood Venous blood specimen / Unknown Venipuncture / Unknown 07/08/2025 6:02 AM EST 07/08/2025 6:31 AM EST Gwendolyn BURKS LAB BLOOD ORDERABLES Final Result Performing Organization Address City/[facility]/ZIP Co de Phone Number [facility] [address] [place] [address], [place] [phone] * Basic metabolic panel (07/08/2025 6:02 AM EST) Only the most recent of9 resultswithin the time period is included. Sodium 140 133 - 145 mmol/L LAB CHEMISTRY METHOD 07/08/2025 7:19 AM [facility] Potassium 3.8 3.5 - 5.5 mmol/L LAB CHEMISTRY METHOD 07/08/2025 7:19 AM [facility] Chloride 108 96 - 110 mmol/L LAB CHEMISTRY METHOD 07/08/2025 7:19 AM [facility] CO2 27 21 - 32 mmol/L LAB CHEMISTRY METHOD 07/08/2025 7:19 AM [facility] Anion Gap 5 3 - 11 LAB CHEMISTRY METHOD 07/08/2025 7:19 AM [facility] Glucose 84 70 - 100 mg/dL LAB CHEMISTRY METHOD 07/08/2025 7:19 AM [facility] BUN 22 5 - 25 mg/dL LAB CHEMISTRY METHOD 07/08/2025 7:19 AM [facility] Creatinine 0.81 0.50 - 1.10 mg/dL LAB CHEMISTRY METHOD 07/08/2025 7:19 AM [facility] eGFR 90 >=60 mL/min/1. 73m2 LAB CHEMISTRY METHOD 07/08/2025 7:19 AM [facility] Comment:Calculation based on the Chronic Kidney Disease Epidemiology Collaboration (CKD-EPI) equation refit without adjustment for race. BUN/Creatinine Ratio 27.2 LAB CHEMISTRY METHOD 07/08/2025 7:19 AM [facility] Calcium 8.9 8.5 - 10.5 mg/dL LAB CHEMISTRY METHOD 07/08/2025 7:19 AM [facility] Blood Venous blood specimen / Unknown Venipuncture / Unknown 07/08/2025 6:02 AM EST 07/08/2025 6:31 AM EST us Gwendolyn BURKS LAB BLOOD ORDERABLES Final Result [facility] [address] [place] [address], * Vascular US duplex upper extremity venous [...] CV VASCULAR PROCEDURES Fin al Result * Pathologist Review Immunofixation (07/06/2025 5:46 AM EDT) Pathologist Interpretation Mabel Lawrence MD 07/08/2025 2:48 PM EST [facility] ([facility]) [facility] Blood Venous blood specimen / Unknown Venipuncture / Unknown 07/06/2025 5:46 AM EDT 07/06/2025 6:34 AM EDT us Prabhjot Neely MD LAB BLOOD ORDERABLES Final Resul t [facility] [address] [place] [address], * PATHOLOGIST REVIEW PROTEIN ELECTROPHORESIS (07/06/2025 5:46 AM EDT) Pathologist Interpretation Mabel Lawrence MD 07/08/2025 2:48 PM EST [facility] Blood Venous blood specimen / Unknown Venipuncture / Unknown 07/06/2025 5:46 AM EDT 07/06/2025 6:34 AM EDT Gwendolyn Sanchez [place] LAB BLOOD ORDERABLES Final Result [facility] [address] [place] [address], * (ABNORMAL) Hemoglobin electrophoresis (07/06/2025 5:46 AM EDT) Hemoglobin A1 98.0(H) 96.5 - 97.8 % 07/08/2025 11:27 AM EST [facility] Hemoglobin A2 2.0(L) 2.2 - 3.2 % 07/08/2025 11:27 AM EST [facility] Hemoglobin F 0.0 <2.0 % 07/08/2025 11:27 AM EST [facility] Hemoglobin S 0.0 0.0 % 07/08/2025 11:27 AM EST [facility] Hemoglobin C 0.0 0.0 % 07/08/2025 11:27 AM EST [facility] Interpretation See Below 07/08/2025 11:27 AM EST [facility] Comment: No abnormal hemoglobin variants seen on hemoglobin electrophoresis. Hemoglobin A2 is decreased. Common causes include, but are not limited to, iron deficiency, alpha thalassemia, and delta thalassemia. Test performed at [facility], [address] , [place] [address] Magy Concepcion MD, PhD - [employer] Blood Venous blood specimen / Unknown Venipuncture / Unknown 07/06/2025 5:46 AM EDT 07/06/2025 6:35 AM EDT Gwendolyn BURKS LAB BLOOD ORDERABLES Final Result [facility] [address] [place] [address] * Immunofixation electrophoresis serum (07/06/2025 5:46 AM EDT) [facility] Immunofixation Result, Serum IgG Lambda monoclonal immunoglobulins detected. LAB CHEMISTRY METHOD 07/08/2025 2:48 PM [facility] Blood Venous blood specimen / Unknown Venipuncture / Unknown 07/06/2025 5:46 AM EDT 07/06/2025 6:34 AM EDT Prabhjot Neely MD LAB BLOOD ORDERABLES Final Resul t Performing Organization Address City/[facility]/ZIP Co de Phone Number [facility] [address] [place] [address], [place] [phone] * (ABNORMAL) Immunoglobulins IgG, IgA, IgM (07/06/2025 5:46 AM EDT) [facility] Total IgG 2,240(H) 549 - 1,584 mg/dL LAB CHEMISTRY METHOD 07/08/2025 11:52 AM [facility] IgA 308 61 - 348 mg/dL LAB CHEMISTRY METHOD 07/08/2025 11:52 AM [facility] IgM 255 23 - 259 mg/dL LAB CHEMISTRY METHOD 07/08/2025 11:52 AM [facility] Blood Venous blood specimen / Unknown Venipuncture / Unknown 07/06/2025 5:46 AM EDT 07/06/2025 6:34 AM EDT Prabhjot Neely MD LAB BLOOD ORDERABLES Final Resul t [facility] [address] [place] [address], [place] [phone] * (ABNORMAL) Protein electrophoresis, serum (07/06/2025 5:46 AM EDT) Total Protein 7.4 6.0 - 8.0 g/dL LAB CHEMISTRY METHOD 07/08/2025 2:48 PM [facility] Albumin, Serum 2.7(L) 2.9 - 4.1 g/dL LAB CHEMISTRY METHOD 07/08/2025 2:48 PM [facility] Alpha 1 Globulin (g/dL) 0.4 0.1 - 0.5 g/dL LAB CHEMISTRY METHOD 07/08/2025 2:48 PM [facility] Alpha 2 Globulin (g/dL) 1.0 0.7 - 1.5 g/dL LAB CHEMISTRY METHOD 07/08/2025 2:48 PM [facility] Beta (g/dL) 1.0 0.7 - 1.5 g/dL LAB CHEMISTRY METHOD 07/08/2025 2:48 PM [facility] Gamma Globulin (g/dL) 2.4(H) 0.7 - 1.9 g/dL LAB CHEMISTRY METHOD 07/08/2025 2:48 PM [facility] SPEP Interpretation Monoclonal gammopathy Abnormal pattern with immeasurable M-spike of gamma globulin mobility. Serum Immunofixation performed on this specimen demonstrated IgG Lambda monoclonal protein. LAB CHEMISTRY METHOD 07/08/2025 2:48 PM [facility] Blood Venous blood specimen / Unknown Venipuncture / Unknown 07/06/2025 5:46 AM EDT 07/06/2025 6:34 AM EDT [facility] LAB BLOOD ORDERABLES Final Result [facility] [address] [place] [address], [place] [phone] * Protein, total (07/06/2025 5:46 AM EDT) [facility] Total Protein 7.4 6.0 - 8.0 g/dL LAB CHEMISTRY METHOD 07/06/2025 7:47 AM EDT [facility] Blood Venous blood specimen / Unknown Venipuncture / Unknown 07/06/2025 5:46 AM EDT 07/06/2025 6:34 AM EDT Gwendolyn Sanchez [place] LAB BLOOD ORDERABLES Final Result Performing Organization Address City/[facility]/ZIP Co de Phone Number [facility] [address] [place] [address], [place] [phone] * (ABNORMAL) Iron (07/06/2025 5:46 AM EDT) [facility] Iron 32(L) 40 - 150 mcg/dL LAB CHEMISTRY METHOD 07/06/2025 7:45 AM EDT [facility] Comment:Results verified by repeat testing Blood Venous blood specimen / Unknown Venipuncture / Unknown 07/06/2025 5:46 AM EDT 07/06/2025 6:34 AM EDT Gwendolyn Sanchez [facility] BLOOD ORDERABLES Final Result Performing Organization Address City/[facility]/ZIP Co de Phone Number [facility] [address] [place] [address], [place] [phone] * (ABNORMAL) Urinalysis with reflex microscopic and culture (07/05/2025 3:58 PM EDT) Only the most recent of2 resultswithin the time period is included. [facility] Specific [place] Urine 1.009 1.003 - 1.030 LAB URINALYSIS - AUTOMATED METHOD 07/05/2025 4:31 PM EDT [facility] pH, Urine 7.5 5.0 - 8.0 pH LAB URINALYSIS - AUTOMATED METHOD 07/05/2025 4:31 PM [facility] Leukocytes, Urine Trace(A) Negative LAB URINALYSIS - AUTOMATED METHOD 07/05/2025 4:31 PM [facility] Nitrite, Urine Negative Negative LAB URINALYSIS - AUTOMATED METHOD 07/05/2025 4:31 PM [facility] Protein, Urine Negative <=Trace mg/dL LAB URINALYSIS - AUTOMATED METHOD 07/05/2025 4:31 PM [facility] Glucose, Urine Negative Negative mg/dL LAB URINALYSIS - AUTOMATED METHOD 07/05/2025 4:31 PM [facility] Ketones, Urine Negative Negative mg/dL LAB URINALYSIS - AUTOMATED METHOD 07/05/2025 4:31 PM [facility] Urobilinogen, Urine 0.2 0.2 - 1.0 mg/dL LAB URINALYSIS - AUTOMATED METHOD 07/05/2025 4:31 PM [facility] Bilirubin, Urine Negative Negative LAB URINALYSIS - AUTOMATED METHOD 07/05/2025 4:31 PM [facility] Blood, Urine Negative Negative LAB URINALYSIS - AUTOMATED METHOD 07/05/2025 4:31 PM [facility] RBC, Urine 3.3 0 - 4 /HPF LAB URINALYSIS - AUTOMATED METHOD 07/05/2025 4:31 PM [facility] WBC, Urine 1.8 0 - 4 /HPF LAB URINALYSIS - AUTOMATED METHOD 07/05/2025 4:31 PM [facility] Squamous Epithelial, Urine 9 0 - 60 /LPF LAB URINALYSIS - AUTOMATED METHOD 07/05/2025 4:31 PM [facility] Bacteria, Urine Negative Negative /HPF LAB URINALYSIS - AUTOMATED METHOD 07/05/2025 4:31 PM [facility] Hyaline Casts, Urine 0.0 0 - 3 /LPF LAB URINALYSIS - AUTOMATED METHOD 07/05/2025 4:31 PM EDT [facility] Urine Urine specimen obtained by clean catch procedure / Unknown Non-blood Collection / Unknown 07/05/2025 3:58 PM EDT 07/05/2025 4:04 PM EDT Gwendolyn Sanchez [place] LAB URINE ORDERABLES Final Result Performing Organization Address City/[facility]/ZIP Co de Phone Number [facility] [address] [place] [address], [place] [phone] * [place] urine culture tube (07/05/2025 3:58 PM EDT) Only the most recent of2 resultswithin the time period is included. Pathologist [facility] Extra Tube Hold for add-ons. 07/05/2025 6:02 PM EDT [facility] Comment:Auto resulted. Urine Urine specimen obtained by clean catch procedure / Unknown Non-blood Collection / Unknown 07/05/2025 3:58 PM EDT 07/05/2025 4:04 PM EDT us Gwendolyn BURKS [facility] URINE ORDERABLES Final Result Performing Organization Address [facility]/ZIP Co de Phone Number [facility] [address] [place] [address], [place] [phone] * Chlamydia trachomatis and Neisseria gonorrhoeae molecular study (07/05/2025 3:58 PM EDT) Neisseria gonorrhoeae PCR Negative Negative LAB MOLECULAR DIAGNOSTICS METHOD 07/06/2025 10:01 AM EDT [facility] Chlamydia trachomatis PCR Negative Negative LAB MOLECULAR DIAGNOSTICS METHOD 07/06/2025 10:01 AM EDT [facility] Urine Urine specimen obtained by clean catch procedure / Unknown Non-blood Collection / Unknown 07/05/2025 3:58 PM EDT 07/05/2025 4:04 PM EDT us Gwendolyn WILEY MICROBIOLOGY - GENERAL ORDERABLES Final Result Performing Organization Address [facility] Co de Phone Number [facility] [address] [place] [address], [place] [phone] * Culture urine (07/05/2025 3:58 PM EDT) Only the most recent of2 resultswithin the time period is included. Culture, Urine No growth 07/06/2025 1:27 PM EDT [facility] Urine Urine specimen obtained by clean catch procedure / Unknown Non-blood Collection / Unknown 07/05/2025 3:58 PM EDT 07/05/2025 4:31 PM EDT us Gwendolyn WILEY MICROBIOLOGY - GENERAL ORDERABLES Final Result Performing Organization Address [facility] de Phone Number [facility] [address] [place] [address], [place] [phone] * Culture blood (07/05/2025 11:20 AM EDT) Only the most recent of9 resultswithin the time period is included. Culture, Blood No growth at 5 days 07/10/2025 11:01 AM EST [facility] Blood Venous blood specimen / Unknown Venipuncture / Unknown 07/05/2025 11:20 AM EDT 07/05/2025 11:42 AM EDT us Gwendolyn WILEY MICROBIOLOGY - GENERAL ORDERABLES Final Result Performing Organization Address [facility] Co de Phone Number [facility] [address] [place] [address], [place] [phone] * (ABNORMAL) Lactate dehydrogenase (07/05/2025 6:36 AM EDT) Only the most recent of2 resultswithin the time period is included. LDH 258(H) 120 - 246 unit/L LAB CHEMISTRY METHOD 07/05/2025 8:59 AM EDT [facility] Comment:Results verified by repeat testing Blood Venous blood specimen / Unknown Venipuncture / Unknown 07/05/2025 6:36 AM EDT 07/05/2025 6:58 AM EDT Gwendolyn Sanchez [place] LAB BLOOD ORDERABLES Final Result Performing Organization Address City/[facility]/ZIP Co de Phone Number [facility] [address] [place] [address], [place] [phone] * (ABNORMAL) Haptoglobin (07/05/2025 6:36 AM EDT) Only the most recent of2 resultswithin the time period is included. Haptoglobin 369(H) 16 - 200 mg/dL LAB CHEMISTRY METHOD 07/05/2025 8:21 AM EDT [facility] Blood Venous blood specimen / Unknown Venipuncture / Unknown 07/05/2025 6:36 AM EDT 07/05/2025 6:58 AM EDT Gwendolyn Sanchez [place] LAB BLOOD ORDERABLES Final Result Performing Organization Address City/[facility]/ZIP Co de Phone Number [facility] [address] [place] [address], [place] [phone] * (ABNORMAL) Hepatic function panel (07/05/2025 6:36 AM EDT) Only the most recent of2 resultswithin the time period is included. Total Protein 8.3(H) 6.0 - 8.0 g/dL LAB CHEMISTRY METHOD 07/05/2025 8:47 AM EDT [facility] Albumin 2.9(L) 3.2 - 5.0 g/dL LAB CHEMISTRY METHOD 07/05/2025 8:47 AM EDT [facility] Total Bilirubin 0.2 0.0 - 1.4 mg/dL LAB CHEMISTRY METHOD 07/05/2025 8:47 AM EDT [facility] Bilirubin, Direct <0.1 0.0 - 0.3 mg/dL LAB CHEMISTRY METHOD 07/05/2025 8:47 AM EDT [facility] Bilirubin, Indirect LAB CHEMISTRY METHOD 07/05/2025 8:47 AM EDT [facility] Comment:Unable to calculate Indirect Bilirubin. ALT (SGPT) 15 10 - 60 unit/L LAB CHEMISTRY METHOD 07/05/2025 8:47 AM T [facility] AST (SGOT) 17 10 - 42 unit/L LAB CHEMISTRY METHOD 07/05/2025 8:47 AM [facility] Alkaline Phosphatase 76 42 - 121 unit/L LAB CHEMISTRY METHOD 07/05/2025 8:47 AM [facility] Blood Venous blood specimen / Unknown Venipuncture / Unknown 07/05/2025 6:36 AM EDT 07/05/2025 6:58 AM EDT Gwendolyn BURKS LAB BLOOD ORDERABLES Final Result [facility] [address] [place] [address], * (ABNORMAL) AST, ALT, Bilirubin ELR state reportables (07/04/2025 11:48 AM EDT) Only the most recent of2 resultswithin the time period is included. ALT (SGPT) 8(L) 10 - 60 unit/L LAB CHEMISTRY METHOD 07/04/2025 4:27 PM EDT [facility] AST (SGOT) 12 10 - 42 unit/L LAB CHEMISTRY METHOD 07/04/2025 4:27 PM EDT [facility] Bilirubin, Direct <0.1 0.0 - 0.3 mg/dL LAB CHEMISTRY METHOD 07/04/2025 4:27 PM EDT [facility] Total Bilirubin 0.2 0.0 - 1.4 mg/dL LAB CHEMISTRY METHOD 07/04/2025 4:27 PM EDT [facility] Blood Venous blood specimen / Unknown Venipuncture / Unknown 07/04/2025 11:48 AM EDT 07/04/2025 12:02 PM EDT us Julianna Orozco MD LAB BLOOD ORDERABLES Final Resul t Performing Organization Address City/[facility]/ZIP Co de Phone Number [facility] [address] [place] [address], [place] [phone] * (ABNORMAL) Hepatitis C virus quantitative molecular study (07/04/2025 11:48 AM EDT) HCV Qual Interp Detected (A) Not Detected LAB MOLECULAR DIAGNOSTICS METHOD 07/04/2025 4:24 PM EDT [facility] HCV RNA Quantitative 844,418( H) <12 I Unit/mL LAB MOLECULAR DIAGNOSTICS METHOD 07/04/2025 4:24 PM EDT [facility] HCV RNA Quantitative Log 5.93(H) <1.08 Log IU/mL LAB MOLECULAR DIAGNOSTICS METHOD 07/04/2025 4:24 PM EDT [facility] Blood Venous blood specimen / Unknown Venipuncture / Unknown 07/04/2025 11:48 AM EDT 07/04/2025 12:02 PM EDT us Julianna Orozco MD LAB BLOOD ORDERABLES Final Resul t Performing Organization Address [facility]/ZIP Co de Phone Number [facility] [address] [place] [address], [place] [phone] * (ABNORMAL) Blood culture pathogens molecular study (2025 1:35 PM EDT) Only the most recent of2 resultswithin the time period is included. Pathologist [facility] Staphylococcus aureus Detected (A) Not Detected LAB MICROBIOLOGY METHOD 07/04/2025 4:04 PM EDT [facility] mecA/C and MREJ (MRSA) Detected (A) Not Detected LAB MICROBIOLOGY METHOD 07/04/2025 4:04 PM EDT [facility] Comment:mecA/C and MREJ Gene Detected: Indicates Methicillin Resistant Staphylococcus. Blood Venous blood specimen / Unknown Venipuncture / Unknown 2025 1:35 PM EDT 2025 1:39 PM EDT us Julianna Orozco MD LAB MICROBIOLOGY - GENERAL ORDER RICARDO Final Result Performing Organization Address [facility] Co de Phone Number [facility] [address] [place] [address], [place] [phone] * (ABNORMAL) Hepatitis C antibody (2025 6:10 AM EDT) [facility] Hepatitis C Antibody Positive (A) Negative LAB CHEMISTRY METHOD 2025 10:57 PM EDT [facility] Comment:If confirmation of t his [...] ORDERABLES Final Resul t Performing Organization Address [facility]/ZIP Co de Phone Number [facility] [address] [place] [address], [place] [phone] * HIV 1,2 antibody, p24 antigen with reflex to differentiation (2025 6:10 AM EDT) [facility] HIV Combo AB/AG Negative Negative LAB CHEMISTRY METHOD 2025 10:57 PM EDT [facility] Blood Venous blood specimen / Unknown Venipuncture / Unknown 2025 6:10 AM EDT 2025 7:00 AM EDT Narrative [facility] - 2025 10:57 PM EDT [...] ORDERABLES Final Resul t Performing Organization Address [facility] Co de Phone Number [facility] [address] [place] [address], [place] [phone] * Hepatitis B surface antigen with reflex to confirmation (2025 6:10 AM EDT) Hepatitis B Surface Ag Negative Negative LAB CHEMISTRY METHOD 2025 10:28 PM EDT [facility] Blood Venous blood specimen / Unknown Venipuncture / Unknown 2025 6:10 AM EDT 2025 7:00 AM EDT Narrative [facility] - 2025 10:28 PM EDT Over the counter supplements containing high doses of biotin may interfere with this assay. If interference is suspected, patients shoud be retested after refraining from biotin supplements for 72 hours. us Julianna Orozco MD LAB BLOOD ORDERABLES Final Resul t Performing Organization Address City/[facility]/ZIP Co de Phone Number [facility] [address] [place] [address], [place] [phone] * Transfuse RBC, Leukoreduced (2025 5:26 AM EDT) Only the most recent of2 resultswithin the time period is included. Tu BURKS BLOOD TRANSFUSION ORDERABLES Fi nal Result * Prepare RBC: 1 Units, Leukoreduced (07/02/2025 8:35 PM EDT) Only the most recent of3 resultswithin the time period is included. Product Code [id number] 2025 2:10 AM EDT [facility] Unit Number [id number] 07/03/20 2:10 AM EDT [facility] Crossmatch Compatible 07/02/2025 9:23 PM EDT [facility] Dispense Status Transfused 2025 2:10 AM EDT [facility] Unit ABO Rh APOS 2025 2:10 AM EDT [facility] Unit Expiration Date Time 2025 2:10 AM EDT [facility] Unit Blood Type 6200 2025 2:10 AM EDT [facility] Blood Venous blood specimen / Unknown 07/02/2025 8:35 PM EDT 06/30/2025 10:26 AM EDT Tu Ozuna [place] BLOOD BANK PRODUCT ORDERABLES F inal Result [facility] [address] [place] [address], * (ABNORMAL) C-reactive protein (07/02/2025 8:17 PM EDT) Only the most recent of2 resultswithin the time period is included. [facility] C-Reactive Protein 2.10(H) <=0.50 mg/dL LAB CHEMISTRY METHOD 07/02/2025 9:02 PM EDT [facility] Blood Venous blood specimen / Unknown Venipuncture / Unknown 07/02/2025 8:17 PM EDT 07/02/2025 8:27 PM EDT us Tu BURKS LAB BLOOD ORDERABLES Final Resu lt [facility] [address] [place] [address], [place] [phone] * (ABNORMAL) Comprehensive Metabolic Panel (CMP) (07/02/2025 8:17 PM EDT) Pathologist [facility] Sodium 139 133 - 145 mmol/L LAB CHEMISTRY METHOD 07/02/2025 8:59 PM T [facility] Potassium 3.7 3.5 - 5.5 mmol/L LAB CHEMISTRY METHOD 07/02/2025 8:59 PM [facility] Chloride 107 96 - 110 mmol/L LAB CHEMISTRY METHOD 07/02/2025 8:59 PM T [facility] CO2 27 21 - 32 mmol/L LAB CHEMISTRY METHOD 07/02/2025 8:59 PM EDT [facility] Anion Gap 5 3 - 11 LAB CHEMISTRY METHOD 07/02/2025 8:59 PM [facility] Glucose 81 70 - 100 mg/dL LAB CHEMISTRY METHOD 07/02/2025 8:59 PM [facility] BUN 26(H) 5 - 25 mg/dL LAB CHEMISTRY METHOD 07/02/2025 8:59 PM T [facility] Creatinine 0.83 0.50 - 1.10 mg/dL LAB CHEMISTRY METHOD 07/02/2025 8:59 PM [facility] eGFR 88 >=60 mL/min/1. 73m2 LAB CHEMISTRY METHOD 07/02/2025 8:59 PM [facility] Comment:Calculation based on the Chronic Kidney Disease Epidemiology Collaboration (CKD-EPI) equation refit without adjustment for race. BUN/Creatinine Ratio 31.3 LAB CHEMISTRY METHOD 07/02/2025 8:59 PM EDT [facility] Calcium 8.6 8.5 - 10.5 mg/dL LAB CHEMISTRY METHOD 07/02/2025 8:59 PM EDT [facility] AST (SGOT) 12 10 - 42 unit/L LAB CHEMISTRY METHOD 07/02/2025 8:59 PM EDT [facility] ALT (SGPT) 8(L) 10 - 60 unit/L LAB CHEMISTRY METHOD 07/02/2025 8:59 PM EDT [facility] Alkaline Phosphatase 74 42 - 121 unit/L LAB CHEMISTRY METHOD 07/02/2025 8:59 PM EDT [facility] Total Protein 7.9 6.0 - 8.0 g/dL LAB CHEMISTRY METHOD 07/02/2025 8:59 PM EDT [facility] Albumin 2.9(L) 3.2 - 5.0 g/dL LAB CHEMISTRY METHOD 07/02/2025 8:59 PM EDT [facility] Total Bilirubin 0.2 0.0 - 1.4 mg/dL LAB CHEMISTRY METHOD 07/02/2025 8:59 PM EDT [facility] Blood Venous blood specimen / Unknown Venipuncture / Unknown 07/02/2025 8:17 PM EDT 07/02/2025 8:27 PM EDT us Adrian Rodriguez MD LAB BLOOD ORDERABLES Final Res ult [facility] [address] [place] [address], * MR Lumbar Spine wo and w Contrast (07/01/2025 5:57 PM EDT) Anatomical Region Laterality Modality L-spine, Spine Magnetic Resonan ce 07/01/2025 6:21 PM EDT Impressions 07/01/2025 6:21 PM EDT 1. 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 Alignment is normal. No acute fracture. There is moderate ill-defined STIR signal elevationand enhancement within the left inferior L4 and left superior L2wccjlrwwkjto facets. There is a peripherally enhancing moderate left L4-L5 facetjoint effusion. Cauda equina and conus medullaris within [...] disc desiccation and diffuse disc bulge. Mild bilateralfacet hypertrophy. Mild canal stenosis. Moderate bilateral foraminal stenosis. L5-S1:Mild disc desiccation and diffuse disc bulge with superimposedleft paracentral protrusion. Mild bilateral facet hypertrophy. Mild canal stenosis. Mild bilateral foraminal stenosis. Mild posterior deviation of the left S1 nerve root within the lateral recess. IMPRESSION: 1. Findings suggestive of septic arthritis involving the left L4-Y6jjypa joint with surrounding cellulitis. 2. Multilevel degenerative disc and facet disease, as well as ligamentum flavum hypertrophy. 3. Mild multilevel canal stenoses. 4. Multilevel mild and moderate foraminal stenoses. 5. Posterior deviation of the left S1 nerve root within the lateralrecess at L5-S1. Correlation with clinical symptoms is recommended to assess relevance of this finding. This document has been electronically signed by: Rebeka Rawls MD on 07/01/2025 18:21:56 Enriqueta Dunaway MD IM MRI PROCEDURES Final Resul t * (ABNORMAL) TRANSTHORACIC ECHOCARDIOGRAM (TTE) COMPLETE (07/01/2025 11:06 AM EDT) Left Atrium Minor Gilbert 4.5 cm CV PACS Left Atrium Major Gilbert 4.6 cm CV PACS LA Area Sys (A2C) 16 cm2 CV PACS LA Area Sys (A4C) 14 cm2 CV PACS LA Volume (BP) 40 mL CV PACS LA Size 3.6 cm CV PACS RA Area 12.8 cm2 CV PACS RA 2D Volume 28 mL CV PACS AV Mean Gradient 4 mmHg CV PACS AV Mean Gradient 4 mmHg CV PACS Ao VTI 28.6 cm CV PACS AV Peak Gee 1.5 m/s CV PACS AV Peak Gradient 9 mmHg CV PACS AV Area Continuity Equation 2.8 cm2 CV PACS AV Area Peak Velocity 2.7 cm2 CV PACS Aortic Arch 2.1 cm CV PACS Ascending Aorta 3.4 cm CV PACS Aortic Sinus Valsalva 3.0 cm CV PACS IVC Proximal 1.5 cm CV PACS IVSD 0.9 0.6 - 0.9 cm CV PACS LVIDD 5.0 3.8 - 5.2 cm CV PACS LVIDS 3.3 2.2 - 3.5 cm CV PACS LVOT Diameter 1.9 cm CV PACS LVOT Mean Gee 1.0 m/s CV PACS LVOT Mean Grad 5 mmHg CV PACS LVOT Peak VTI 28.0 cm CV PACS LVOT Peak Gee 1.4 m/s CV PACS LVOT Peak Gradient 8 mmHg CV PACS LVPWD 0.9 0.6 - 0.9 cm CV PACS MV E' Tissue Velocity Lateral 16 cm/s CV PACS MV E' Tissue Velocity Septal 10 cm/s CV PACS LVOT Area 2.8 cm2 CV PACS LVOT Stroke Volume 80 mL CV PACS MV Deceleration Stevens 9.4 m/s2 CV PACS E Wave Deceleration Time 109(A) 119 - 242 ms CV PACS MV PHT 32 ms CV PACS MV Peak A Gee 0.93 m/s CV PACS MV Peak A Gee 0.93 m/s CV PACS MV Peak E Gee 1.02 m/s CV PACS MV Mean Gradient 2 mmHg CV PACS MV Mean Gradient 2 mmHg CV PACS MV Mean Gradient 2 mmHg CV PACS MV Mean Gradient 2 mmHg CV PACS MV VTI 25.0 cm CV PACS Mitral Valve Max Velocity 1.2 m/s CV PACS MV Peak Gradient 5 mmHg CV PACS MV Area PHT 6.9 cm2 CV PACS MV Area Continuity Equation 3.2 cm2 CV PACS PV Acceleration Time 134 ms CV PACS PV Acceleration Time 120 ms CV PACS PV Acceleration Time 127 ms CV PACS PV Mean Gradient 1 mmHg CV PACS PV VTI 14.3 cm CV PACS PV Peak Velocity 0.9 m/s CV PACS PV Peak Gradient 4 mmHg CV PACS RV Diastolic Basal Dimension 2.6 2.5 - 4.1 cm CV PACS RV S' 14 cm/s CV PACS TAPSE 25 mm CV PACS E/E' Ratio Septal 10 CV PACS E/E' Ratio Averaged 8 CV PACS LVOT Stroke Index 52 mL/m2 CV PACS LA Dimension Index 2D 2.4 cm/m2 CV PACS Relative Wall Thickness ratio 0.36 CV PACS LVOT:AV VTI Index 0.98 CV PACS FS 34 % CV PACS LV Mass 2D 158 g CV PACS Ascending Aorta Index 2.22 cm/m2 CV PACS MV VTI:LVOT VTI ratio 0.9 CV PACS LVOT flow 283 mL/s CV PACS RA 2D Volume Index 18 mL/m2 CV PACS BELINDA Index (VTI) 1.81 cm2/m2 CV PACS BELINDA Index (Pk Gee) 1.76 cm2/m2 CV PACS LVIDD Index 3.27 cm/m2 CV PACS LVIDS Index 2.16 cm/m2 CV PACS AV Velocity Ratio 0.93 CV PACS E/E' Ratio Lateral 6 CV PACS LA Volume Index (BP) 26 mL/m2 CV PACS LV Mass Index 2D 103 g/m2 CV PACS BSA 1.55 m2 CV PACS Est. RA Pressure 3 mmHg CV PACS Anatomical Region Laterality Modality Ultrasound Narrative 07/01/2025 11:51 AM EDT Left ventricle cavity size is normal. Left ventricular systolic function is in the normal range with an ejection fraction of 55-60%. Right ventricle cavity is normal. Right ventricular systolic function is normal. No hemodynamic significant valvular abnormalities. No gross vegetation. Trivial pericardial effusion. Left Ventricle Left ventricle cavity size is normal. Wall thickness is normal. Systolic function is normal with an ejection fraction of 55-60%. There are no regional LV wall motion abnormalities. There is no diastolic dysfunction. Right Ventricle Right ventricle cavity appears normal. Systolic function is normal. Left Atrium Left atrium cavity size is normal. Right Atrium Right atrium cavity is normal. IVC/SVC Inferior vena cava structure is normal. RA pressures is estimated to be 3 mmHg (IVC diameter <21 mm and decreases >50% during inspiration). Mitral Valve The leaflets are mildly thickened. There is mild annular calcification. There is trace regurgitation. There is no evidence of mitral valve stenosis. Tricuspid Valve The leaflets are mildly thickened. There is mild regurgitation with a central jet. There is no evidence of tricuspid valve stenosis. Cannot assess RVSP. Aortic Valve The aortic valve is trileaflet. There is no regurgitation or stenosis. Pulmonic Valve There is mild pulmonic valve regurgitation. There is no evidence of pulmonic valve stenosis. Ascending Aorta The aorta appears normal in size. Pericardium Pericardium appears normal. There is a trivial pericardial effusion. Study Details Overall the study quality was adequate. us Gwendolyn BURKS CV ECHO PROCEDURES Final R esult * Thyroid stimulating hormone with reflex to free t4 and free t3 (07/01/2025 7:04 AM EDT) [facility] TSH 0.57 0.40 - 4.00 mcIU/mL LAB CHEMISTRY METHOD 07/01/2025 6:49 PM EDT [facility] Blood Venous blood specimen / Unknown Venipuncture / Unknown 07/01/2025 7:04 AM EDT 07/01/2025 7:20 AM EDT us Gwendolyn BURKS LAB BLOOD ORDERABLES Final Result [facility] [address] [place] [address], [place] [phone] * (ABNORMAL) Complete blood count (07/01/2025 7:04 AM EDT) [facility] WBC 8.8 4.8 - 10.8 K/mcL LAB HEMETOLOGY METHOD 07/01/2025 7:40 AM EDT [facility] RBC 3.70(L) 3.80 - 4.80 M/mcL LAB HEMETOLOGY METHOD 07/01/2025 7:40 AM EDT [facility] Hemoglobin 7.5(L) 11.5 - 16.0 g/dL LAB HEMETOLOGY METHOD 07/01/2025 7:40 AM EDT [facility] Hematocrit 25.8(L) 35.0 - 47.0 % LAB HEMETOLOGY METHOD 07/01/2025 7:40 AM EDT [facility] MCV 69.0(L) 79.0 - 98.0 FL LAB HEMETOLOGY METHOD 07/01[facility]2025 7[facility] MCH 20.1(L) 27.0 - 32.0 pcg LAB HEMETOLOGY METHOD 07/01/2025 7:40 AM EDT [facility] MCHC 29.1(L) 32.0 - 37.0 g/dL LAB HEMETOLOGY METHOD 07/01/2025 7:40 AM [facility] RDW 18.1(H) 11.0 - 15.0 % LAB HEMETOLOGY METHOD 07/01/2025 7:40 [facility] Platelets 623(H) 130 - 400 K/mcL LAB HEMETOLOGY METHOD 07/01/2025 7:40 AM EDT [facility] MPV 9.5 7.0 - 11.0 FL LAB HEMETOLOGY METHOD 07/01/2025 7:40 AM [facility] NRBC 0.0 <1.0 % LAB HEMETOLOGY METHOD 07/01/2025 7:40 AM T [facility] NRBC Absolute 0.00 <0.10 K/mcL LAB HEMETOLOGY METHOD 07/01/2025 7:40 AM [facility] Blood Venous blood specimen / Unknown Venipuncture / Unknown 07/01/2025 7:04 AM EDT 07/01/2025 7:21 AM EDT us Enriqueta Dunaway MD LAB BLOOD ORDERABLES Final Res ult [facility] [address] [place] [address], * (ABNORMAL) Fentanyl and metabolite, quantitative, urine (07/01/2025 2:41 AM EDT) Fentanyl Confirm, Urine 55(H) Negative ng/mL 07/05/2025 1:48 PM EDT [facility] Norfentanyl Confirm, Urine 732(H) Negative ng/mL 07/05/2025 1:48 PM EDT [facility] Creatinine 117 20 - 250 mg/dL 07/05/2025 1:48 PM EDT [facility] Adulterants Negative 07/05/2025 1:48 PM EDT [facility] Comment: Confirmation Decision Limits Fentanyl 1 ng/mL Norfentanyl 1 ng/mL Fentanyl and Norfentanyl confirmed by LC/MS/MS. Adulterant Decision Limit: General Oxidants 200 ug/mL The adulterant assay tests for General Oxidants, including Chromates and Nitrites. Adulterants are substances either ingested or added directly to a urine specimen to prevent the detection of drug use. If applicable, any drug confirmation testing reported here was developed and the performance characteristics determined by [facility]. This confirmation testing has not been cleared or approved by the FDA. The laboratory is regulated under CLIA as qualified to perform high-complexity testing. This test is used for patient testing purposes. It should not be regarded as investigational or for research. Test performed at [facility], [address] , [place], [place] [id number] Magy Concepcion MD, PhD - [employer] Automatic Urine Urine specimen from urethra / Unknown Non-blood Collection / Unknown 07/01/2025 2:41 AM EDT 07/01/2025 2:57 AM EDT Yumiko Shaikh [employer] LAB URINE ORDERABLES Donny sandy Result - Final [facility] [address] [place], [place] [id number] * (ABNORMAL) Drug abuse screen 8a panel, urine (07/01/2025 2:41 AM EDT) Amphetamine Screen, Ur Negative Negative LAB CHEMISTRY METHOD 3:39 AM [facility] Comment:Certain OTC medicati ons containing ephedrine, phenylephrine, pseudoephedrine and phenylpropanolamine can cause false positive results. Barbiturate Screen, Ur Negative Negative LAB CHEMISTRY METHOD 3:39 AM [facility] Benzodiazepine Screen, Ur Negative Negative LAB CHEMISTRY METHOD 3:39 AM [facility] Cocaine Screen, Ur Positive(A ) Negative LAB CHEMISTRY METHOD 3:39 AM [facility] Opiate Screen, Ur Positive(A ) Negative LAB CHEMISTRY METHOD 3:39 AM [facility] Cannabinoid (THC) Screen, Ur Negative Negative LAB CHEMISTRY METHOD 3:39 AM [facility] Comment:Specimens from patie nts taking pantoprazole sodium (Protonix) have been shown to produce false positive results. Oxycodone Screen, Ur Negative Negative LAB CHEMISTRY METHOD 3:39 AM [facility] Fentanyl, Ur Positive(A ) Negative LAB CHEMISTRY METHOD 3:39 AM [facility] Urine Urine specimen obtained by clean catch procedure / Unknown Non-blood Collection / Unknown 07/01/2025 2:41 AM EDT [facility] 07/01/2025 3:39 AM EDT Assay cutoffs: Amphetamines 1000 ng/mL Barbiturates 200 ng/mL Benzodiazepines 200 ng/mL Cocaine 300 ng/mL Fentanyl 1 ng/mL Opiates 300 ng/mL Oxycodone 100 ng/mL THC 50 ng/mL Semi-quantitative assay for screening purposes only. Unconfirmed screening result should not be used for non-medical purposes. *ALTERNATE METHOD CONFIRMATION DONE UPON REQUEST ONLY* us Yumiko Shaikh NP LAB URINE ORDERABLES Fin al Result [facility] [address] [place] [address], * (ABNORMAL) Methadone confirmation, urine (07/01/2025 2:41 AM EDT) Methadone Confirm Urine 420(H) Negative ng/mL 2025 11:45 PM EDT [facility] EDDP Confirm, Urine 1480(H) Negative ng/mL 2025 11:45 PM EDT [facility] Creatinine 117 20 - 250 mg/dL 2025 11:45 PM EDT [facility] Adulterants Negative 2025 11:45 PM EDT [facility] Comment: Confirmation (LC/MS/MS) Decision Limits Methadone 100 ng/mL EDDP (Methadone Metabolite) 100 ng/mL Adulterant Decision Limit: General Oxidants 200 ug/mL The adulterant assay tests for General Oxidants, including Chromates and Nitrites. Adulterants are substances either ingested or added directly to a urine specimen to prevent the detection of drug use. If applicable, any drug confirmation testing reported here was developed and the performance characteristics determined by [facility]. This confirmation testing has not been cleared or approved by the FDA. The laboratory is regulated under CLIA as qualified to perform high-complexity testing. This test is used for patient testing purposes. It should not be regarded as investigational or for research. Test performed at [facility], [address] , [place] [address] Magy Concepcion MD, PhD - [employer] Feeder Automatic Urine Urine specimen from urethra / Unknown Non-blood Collection / Unknown 07/01/2025 2:41 AM EDT 07/01/2025 2:57 AM EDT Yumiko Shaikh NP LAB URINE ORDERABLES Fin al Result [facility] [address] [place] [address] * SST tube (06/30/2025 6:18 PM EDT) Pathologist [facility] Extra Tube Hold for add-ons. 06/30/2025 8:01 PM EDT [facility] Comment:Auto resulted. Blood Venous blood specimen / Unknown 06/30/2025 6:18 PM EDT 06/30/2025 6:47 PM EDT us Enriqueta Dunaway MD LAB BLOOD ORDERABLES Final Res ult Performing Organization Address City/[facility]/ZIP Co de Phone Number [facility] [address] [place] [address], * (ABNORMAL) Soluble transferrin receptor (06/30/2025 6:18 PM EDT) [facility] Soluble Transferrin Receptor 56.3(H) 12.2 - 27.3 nmol/L 2025 5:05 PM EDT [facility] Blood Venous blood specimen / Unknown 06/30/2025 6:18 PM EDT 06/30/2025 6:47 PM EDT Narrative [facility] - 2025 5:05 PM EDT Performed at: - [facility] [id number] [employer] T[employer]: Franck Carey MD, Phone: [phone] us Yumiko Shaikh NP LAB BLOOD ORDERABLES Fin al Result [facility] * (ABNORMAL) Hemoglobin and hematocrit (06/30/2025 6:03 PM EDT) Pathologist [facility] Hemoglobin 7.3(L) 11.5 - 16.0 g/dL LAB HEMETOLOGY METHOD 06/30/2025 7:22 PM EDT [facility] Hematocrit 25.5(L) 35.0 - 47.0 % LAB HEMETOLOGY METHOD 06/30/2025 7:22 PM EDT [facility] Blood Venous blood specimen / Unknown 06/30/2025 6:03 PM EDT 06/30/2025 7:18 PM EDT Yumiko Shaikh NP LAB BLOOD ORDERABLES Fin al Result Performing Organization Address [facility] Co de Phone Number [facility] [address] [place] [address], * Type and screen (06/30/2025 10:18 AM EDT) ABO Group A 06/30/2025 11:48 AM EDT [facility] Rh Type Positive 06/30/2025 11:48 AM EDT [facility] Antibody Screen Negative 06/30/2025 11:48 AM EDT [facility] Blood Venous blood specimen / Unknown Venipuncture / Unknown 06/30/2025 10:18 AM EDT 06/30/2025 10:26 AM EDT Ivonne BURKS LAB BLOOD BANK TEST ORDERABLE S Final Result Performing Organization Address [facility] de Phone Number [facility] [address] [place] [address], * XR Lumbar Spine 2-3 Views (06/30/2025 8:59 AM EDT) Anatomical Region Laterality Modality Spine, L-spine Radiographic Luz ging 06/30/2025 10:0 9 AM EDT Impressions 06/30/2025 10:10 AM EDT FINDINGS/IMPRESSION: Lumbar lordosis is maintained. No fracture. Mild multilevel degenerative endplate spurring. Disc space heights and facet joints are maintained. -------- FINAL REPORT -------- Dictated By: AL MARLOW Dictated Date: 06/30/2025 10:09 ET Assigned Physician: AL MARLOW Reviewed and Electronically Signed By: AL MARLOW Signed Date: 06/30/2025 10:10 ET Workstation ID: [id number] Transcribed By: Self Edit Transcribed Date: 06/30/2025 10:09 ET Narrative 06/30/2025 10:10 AM EDT XR LUMBAR SPINE 2-3 VIEWS INDICATION: Pain TECHNIQUE: XR LUMBAR SPINE 2-3 VIEWS COMPARISON: No priors available. Procedure Note Al Marlow MD - 06/30/2025 XR LUMBAR SPINE 2-3 VIEWS INDICATION: Pain TECHNIQUE: XR LUMBAR SPINE 2-3 VIEWS COMPARISON: No priors available. IMPRESSION: FINDINGS/IMPRESSION: Lumbar lordosis is maintained. No fracture. Mildmultilevel degenerative endplate spurring. Disc space heights and facetjoints are maintained. -------- FINAL REPORT -------- Dictated By: AL MARLOW Dictated Date: 06/30/2025 10:09 ET Assigned Physician: AL MARLOW Reviewed and Electronically Signed By: AL MARLOW Signed Date: 06/30/2025 10:10 ET Workstation ID: [id number] Transcribed By: Self Edit Transcribed Date: 06/30/2025 10:09 ET Ivonne BURKS IMG XR PROCEDURES Final Resul t * (ABNORMAL) Iron and TIBC (06/30/2025 7:46 AM EDT) Iron 12(L) 40 - 150 mcg/dL LAB CHEMISTRY METHOD 06/30/2025 12:30 PM EDT [facility] TIBC 347 250 - 450 mcg/dL LAB CHEMISTRY METHOD 06/30/2025 12:30 PM EDT [facility] Iron Saturation 3(L) 15 - 50 % LAB CHEMISTRY METHOD 06/30/2025 12:30 PM EDT [facility] Blood Venous blood specimen / Unknown Venipuncture / Unknown 06/30/2025 7:46 AM EDT 06/30/2025 8:53 AM EDT Yumiko Shaikh NP LAB BLOOD ORDERABLES Fin al Result Performing Organization Address [facility]/ZIP Co de Phone Number [facility] [address] [place] [address], [place] [phone] * (ABNORMAL) Sedimentation rate, automated (06/30/2025 7:46 AM EDT) [facility] Sed Rate 89(H) 0 - 20 mm/hr LAB HEMETOLOGY METHOD 06/30/2025 10:50 AM EDT [facility] Blood Venous blood specimen / Unknown Venipuncture / Unknown 06/30/2025 7:46 AM EDT 06/30/2025 8:53 AM EDT Ivonne Henriquez PA LAB BLOOD ORDERABLES Final Re sult Performing Organization Address [facility]/ZIP Co de Phone Number [facility] [address] [place] [address], [place] [phone] * HCG, quantitative (06/30/2025 7:46 AM EDT) [facility] hCG Quant <1 mIU/mL LAB CHEMISTRY METHOD 06/30/2025 2:48 PM EDT [facility] Blood Venous blood specimen / Unknown Venipuncture / Unknown 06/30/2025 7:46 AM EDT 06/30/2025 8:53 AM EDT Narrative [facility] - 06/30/2025 2:48 PM EDT Quantitative HCG Reference Ranges Time after Conception MIU/ML 0.2-1 Week 5-50 1-2 Weeks 50-500 2-3 Weeks 100-5,000 3-4 Weeks 500-10,000 4-5 Weeks 1,000-50,000 5-6 Weeks 10,000-100,000 6-8 Weeks 15,000-200,000 2-3 Months 10,000-100,000 2nd Trimester 1,000-94,000 3rd Trimester 2,500-90,000 Non- Females 1-3 Yumiko Shaikh [employer] LAB BLOOD ORDERABLES Fin al Result Performing Organization Address [facility]/ZIP Co de Phone Number [facility] [address] [place] [address], [place] [phone] * (ABNORMAL) Folate (06/30/2025 7:46 AM EDT) Folate >20.0(H) 2.8 - 17.0 ng/ml LAB CHEMISTRY METHOD 06/30/2025 12:54 PM EDT [facility] Blood Venous blood specimen / Unknown Venipuncture / Unknown 06/30/2025 7:46 AM EDT 06/30/2025 8:53 AM EDT Yumiko Shaikh NP LAB BLOOD ORDERABLES Fin al Result Performing Organization Address [facility] de Phone Number [facility] [address] [place] [address], [place] [phone] * Ferritin (06/30/2025 7:46 AM EDT) Ferritin 11 8 - 252 ng/mL LAB CHEMISTRY METHOD 06/30/2025 12:54 PM EDT [facility] Blood Venous blood specimen / Unknown Venipuncture / Unknown 06/30/2025 7:46 AM EDT 06/30/2025 8:53 AM EDT Yumiko Shaikh [employer] LAB BLOOD ORDERABLES Fin al Result Performing Organization Address [facility]/ZIP Co de Phone Number [facility] [address] [place] [address], [place] [phone] * Vitamin B12 (06/30/2025 7:46 AM EDT) Vitamin B-12 260 250 - 900 pcg/mL LAB CHEMISTRY METHOD 06/30/2025 12:54 PM EDT [facility] Blood Venous blood specimen / Unknown Venipuncture / Unknown 06/30/2025 7:46 AM EDT 06/30/2025 8:53 AM EDT Yumiko Shaikh [employer] LAB BLOOD ORDERABLES Fin al Result [facility] [address] [place] [address], [place] [phone] * Ethanol (06/30/2025 7:46 AM EDT) Ethanol Level <3 0 - 10 mg/dL LAB CHEMISTRY METHOD 06/30/2025 12:30 PM EDT [facility] Blood Venous blood specimen / Unknown Venipuncture / Unknown 06/30/2025 7:46 AM EDT 06/30/2025 8:53 AM EDT Yumiko Shaikh NP LAB BLOOD ORDERABLES Fin al Result [facility] [address] [place] [address], [place] [phone] from Last 3 Months Insurance [facility] MEDICARE Member Subscriber Plan / Payer (Ef fective 2024-Present) Name:KATHY BALLARD Relation to Subscriber:Self Name:Kathy Ballard Payer ID:[id number] Group ID:[id number] Type:Not on file Address: [facility] [address] [place] [phone] Advance Directives * Full Code - Default (Latest Code Status on File) Date Activated Date Inactivated Comments 07/04/2025 7:28 PM 07/17/2025 1:13 AM This is or taylor is used when code status has not been discussed with the patient, or code status is otherwise unknown/unconfirmed To update the patient's code status, place a code status order. Do not modify or discontinue any currently active code status orders. * Full Code - Confirmed Date Activated Date Inactivated Comments 07/02/2025 8:42 PM 07/04/2025 7:28 PM This code status was ascertained in the following way: Code status discussion: discussion with patient To update the patient's code status, place a code status order. Do not modify or discontinue any currently active code status orders. * Full Code - Confirmed Date Activated Date Inactivated Comments 06/30/2025 12:10 PM 07/02/2025 11:26 AM This cod e status was ascertained in the following way: Code status discussion: discussion with patient To update the patient's code status, place a code status order. Do not modify or discontinue any currently active code status orders. * Full Code - Default Date Activated Date Inactivated Comments 06/30/2025 11:36 AM 06/30/2025 12:10 PM This is order is used when code status has not been discussed with the patient, or code status is otherwise unknown/unconfirmed To update the patient's code status, place a code status order. Do not modify or discontinue any currently active code status orders. Care Teams Instructor Watch Assembly Relationship Specialty Start Date End Date Physician, Pcp Unknown PCP - General Internal Medicine 06/30/25
[2025-07-17 19:08] LABS: Acetaminophen LAB < 3 mcg/mL (<30)
[2025-07-17 19:47] VITALS: BP 149/95; PULSE 90; RESP 18; TEMP 37.1; O2SAT 99
--- NOTE | 2025-07-17 20:00 | PC.NURSE ---
Assumed care at 1845. Patient presents as calm and cooperative. No HS scheduled medications. C/o constipation and bloating, reports no BM x3 days. C/o 8/10 chronic lower back, requesting Dilaudid or Oxycodone. MD Castellano made aware, pending order. Utilized warm shower for comfort. Dressing to L forearm reinforced. Denied SI/HI/AVH. Will continue to monitor for safety.
--- NOTE | 2025-07-17 21:20 | PC.NURSE ---
Report to be given to AMBER Higgins. Patient transferred to [facility] for medical bed.
--- NOTE | 2025-07-17 21:50 | PC.NURSE ---
Patient out of bed to bathroom. 20g IV access in Left AC. Pt aware of plan to admit for IV antibiotics, and psych consultation. Plan for PICC insertion, date/time TBD. Care ongoing by this RN.
[2025-07-17 21:58] VITALS: BP 125/85; PULSE 88; RESP 16; TEMP 36.9; O2SAT 99
[2025-07-17] MEDS: oxyCODONE HCl Immed Release 5 MG TABLET PO (22:04)
[2025-07-18] VITALS (7 sets, daily range): BP systolic 101–150; BP diastolic 58–89; PULSE 67–90; RESP 14–16; TEMP 36.2–36.9; O2SAT 96–100; BMI 23.4
--- NOTE | 2025-07-18 00:46 | PM.IMHP ---
History of Present Illness Date of Service: 07/18/25 Attending physician on admission: Alba Zimmerman Chief Complaint: Anxiety Kathy Ballard is a 50 years old woman with past medical history significant for IVDU (active)/polysubstance abuse, chronic hepatitis-C, anxiety, PTSD and depression presents to the emergency department complaining of feeling anxious and came to the ED looking for evaluation by Psychiatry. She denied active suicidal ideation. She left [facility] yesterday. She has been treated for septic arthritis L4-L5 MRSA bacteremia (per MRI). She was initially treated with vancomycin and Zosyn. After cultures came back positive for MRSA bacteremia she was treated with vancomycin alone. She was seen by ID and recommended IV vancomycin until 08/30/2025. Before leaving [facility] her PICC line was removed. The plan was to discharge her to a SNF so she can completed the IV antibiotic therapy but she refused this. She also was found to have severe iron deficiency anemia; hemoglobin was 6.1 a received 1 unit of PRBC. Her repeat hemoglobin was 6.7 and another unit was ordereg but patient left [facility] without receiving it. Patient seems to be very upset because she was not evaluated by psychiatry service, however, discharge summary, the patient was seen by Psychiatry and recommended to increase Zoloft but patient declined this recommendation. Also vraylar 1.5 mg p.o. daily for psychotic symptoms, depression regimen of mentation. At that time she did not meet criteria for sectioned 12 or involuntary psychiatric admission per Psychiatry. She also was given Ambien X1 only after the initiation of methadone. The patient was also seen by addiction medicine and methadone was initiated at 50 mg p.o. daily and Suboxone was discontinued. Unfortunately, after leaving [facility] she used IV drugs again: Cocaine and heroin. ED tx: Ativan 1 mg p.o., Tums, vancomycin 1250 mg IV, oxycodone 50 mg p.o. Review of Systems Review of Systems: All 12 systems were reviewed and normal except as noted in HPI. [facility] Medical History Anemia Anxiety and depression GERD (gastroesophageal reflux disease) Hypothyroid Insomnia MDD (major depressive disorder), recurrent episode, severe Migraine Panic attacks Peptic ulcer disease Polysubstance abuse PTSD (post-traumatic stress disorder) Family History Father COPD (chronic obstructive pulmonary disease) Lung cancer Mother No problems noted. Maternal Grandmother Esophageal cancer Maternal Grandfather Pancreatic cancer Paternal Grandmother Esophageal cancer Stomach cancer Maternal Aunt Breast cancer Surgical History History of section Social History Household Members: Friend(s) Household Members Other:: roomate Housing: Apartment Do you presently have visiting nurse or other home services: No Alcohol intake: unknown Patient Tobacco Use Status: Never used Tobacco Tobacco use type: Cigarette e-Cigarette/Vaping Use: Never Used Second Hand Smoke Exposure: No Use of substances other than those prescribed or required for medical reasons: Yes Substance Use Type: Crack/Cocaine and Heroin Advance Directives: No Advance Directives Information Provided: Yes Do you have a plan to hurt others: No Plan Patient : No service: No Current occupational status: employed Sexual orientation: Straight/Heterosexual Cognitive needs: No Hearing needs: No Vision needs: No Meds Allergies Allergy/AdvReac Type Severity Reaction Status Date / Time diphenhydramine (From Allergy Severe RASH Verified 07/17/25 14:45 BENADRYL) trazodone (TRAZODONE) AdvReac Severe DYSTONIC Verified 07/17/25 14:45 risperidone (Risperdal) AdvReac Unknown Dystonia Verified 07/17/25 14:45 Active Medications: Current Medications Acetaminophen (Acetaminophen 325 Mg Tablet) 975 mg PO Q6H PRN PRN Reason: Pain, Mild 1-3,fever,headache Buprenorphine/Naloxone (Buprenorphine/Naloxone 2/0.5mg Tab.Subl) 2 tab SUBLINGUAL DAILY YESENIA Calcium Carbonate (Calcium Carbonate 750 Mg Tab.Chew) 750 mg PO Q4H PRN PRN Reason: Heartburn Cariprazine (Cariprazine Hcl 1.5 Mg Capsule) 1.5 mg PO DAILY YESENIA Stop: 07/31/25 09:00 Enoxaparin Sodium (Enoxaparin Sodium 40 Mg/0.4 Ml Syringe) 40 mg SUBCUT Q24H YESENIA Ferrous Sulfate (Ferrous Sulfate 324 Mg Tablet.Dr) 324 mg PO BID YESENIA Gabapentin (Gabapentin 100 Mg Capsule) 100 mg PO TID YESENIA Magnesium Hydroxide (Milk Of Magnesia 30 Ml Oral.Susp) 30 ml PO DAILY PRN PRN Reason: Constipation Methadone HCl (Methadone Hcl 20 Mg/2 Ml Oral.Conc) 50 mg PO DAILY [facility] Oxycodone HCl (Oxycodone Hcl Immed Release 5 Mg Tablet) 5 mg PO Q6H PRN PRN Reason: Pain, Severe (Pain Scale 7-10) Sertraline HCl (Sertraline Hcl 25 Mg Tablet) 25 mg PO DAILY [facility] Sodium Chloride (0.9 % Sodium Chloride Flush 3 Ml Syringe) 3 ml IVFLUSH QSHIFT [facility] Home Medications ?Medication ?Instructions ?Recorded ?Confirmed ?Last Taken ?Type buprenorphine 2 mg-naloxone 0.5 mg 2 tab sublingual DAILY 07/17/25 07/17/25 07/15/25 History sublingual tablet gabapentin 100 mg capsule 100 mg PO TID 07/17/25 07/17/25 07/15/25 History sertraline 25 mg tablet (Zoloft) 25 mg PO DAILY 07/17/25 07/17/25 07/15/25 History Physical Exam Vital Signs and Narrative: Vital Signs: Last Vital Signs Temp 98.5 F 07/17/25 21:58 Pulse 88 07/17/25 21:58 Resp 16 07/17/25 21:58 BP 125/85 07/17/25 21:58 Pulse Ox 99 07/17/25 21:58 O2 Del Method Room Air 07/17/25 21:58 BMI result Body Mass Index 23.4 General: Alert, oriented, in no acute distress. Well nourished and cooperative. Afebrile. HEENT: Head normocephalic, atraumatic. PER, EOMI. Sclerae anicteric, conjunctiva clear. Oropharynx without erythema or exudate. Mucous membranes moist. Neck: Supple. Heart: RRR, no murmurs, rubs or gallops. Lungs: Clear to auscultation bilaterally. No wheezes, rales, or rhonchi. Normal respiratory effort. Abdomen: Soft, non tenderness, nondistended, normoactive bowel sounds. No hepatosplenomegaly, masses or masses. Extremities: Musculoskeletal: Full range of motion. No joint swelling, deformity, or tenderness. Normal muscle tone and strength. Skin: Warm/Dry. No pallor. No jaundice. Neurologic: Alert & oriented x4. Moving all extremities spontaneously. Normal speech. Psychological: Normal mood and affect. Thought process coherent. Results Labs 07/17/25 14:43 07/17/25 14:43 Labs: Laboratory Results - last 24 hr 07/17/25 07/17/25 07/17/25 14:33 14:43 15:49 MCV 75.8 L MCH 22.0 L MCHC 29.0 L RDW 26.2 H Plt Count 236 MPV 9.4 Immature Gran % (Auto) 0.0 Neut % (Auto) 73.3 H Lymph % (Auto) 20.3 [place] % (Auto) 4.6 Eos % (Auto) 0.9 Baso % (Auto) 0.9 Lymph # (Auto) 0.9 L [place] # (Auto) 0.2 Eos # (Auto) 0.0 Baso # (Auto) 0.0 Abs Immat Gran (auto) 0.00 Absolute Neuts (auto) 3.3 Absolute Nucleated RBC 0.000 Nucleated RBC % (auto) 0.0 ESR 60 H Anion Gap 11 L Estim Creat Clear Calc 71.6 Estimated GFR > 60 Random Glucose 106 Lactic Acid Calcium 9.2 Magnesium 1.9 Total Bilirubin 0.2 AST 32 H ALT 15 Alkaline Phosphatase 79 C-Reactive Protein 0.61 H Total Protein 8.9 H Albumin 4.3 Lipase 7 L Urine Color Yellow Urine Appearance Clear Urine pH 6.0 Ur Specific [place] 1.020 Urine Protein Trace Urine Glucose (UA) Negative Urine Ketones Negative Urine Blood Small (1+) H Urine Nitrite Negative Ur Leukocyte Esterase Trace H Urine RBC 11-20 H Urine WBC 0-5 Ur Squamous Epith Cells 3-5 Urine Bacteria None Seen Hyaline Casts 0-2 Salicylates < 5.0 L Urine Opiates Screen POSITIVE H Ur Buprenorphine Scrn Positive H Ur Oxycodone Screen Positive H Urine Methadone Screen Positive H Urine Fentanyl Screen POSITIVE H Acetaminophen < 3 Ur Barbiturates Screen Not Detected Ur Phencyclidine Scrn Not Detected Ur Amphetamines Screen Not Detected U Benzodiazepines Scrn Not Detected Urine Cocaine Screen POSITIVE H U Marijuana (THC) Screen Not Detected Ethyl Alcohol < 10 07/17/25 21:38 MCV MCH MCHC RDW Plt Count MPV Immature Gran % (Auto) Neut % (Auto) Lymph % (Auto) [place] % (Auto) Eos % (Auto) Baso % (Auto) Lymph # (Auto) [place] # (Auto) Eos # (Auto) Baso # (Auto) Abs Immat Gran (auto) Absolute Neuts (auto) Absolute Nucleated RBC Nucleated RBC % (auto) ESR Anion Gap Estim Creat Clear Calc Estimated GFR Random Glucose Lactic Acid 0.9 Calcium Magnesium Total Bilirubin AST ALT Alkaline Phosphatase C-Reactive Protein Total Protein Albumin Lipase Urine Color Urine Appearance Urine pH Ur Specific [place] Urine Protein Urine Glucose (UA) Urine Ketones Urine Blood Urine Nitrite Ur Leukocyte Esterase Urine RBC Urine WBC Ur Squamous Epith Cells Urine Bacteria Hyaline Casts Salicylates Urine Opiates Screen Ur Buprenorphine Scrn Ur Oxycodone Screen Urine Methadone Screen Urine Fentanyl Screen Acetaminophen Ur Barbiturates Screen Ur Phencyclidine Scrn Ur Amphetamines Screen U Benzodiazepines Scrn Urine Cocaine Screen U Marijuana (THC) Screen Ethyl Alcohol Assessment and Plan (1) MRSA bacteremia: Status: Acute (2) Septic arthritis of lumbar spine: Status: Acute Plan Kathy Ballard is a 50 y/owoman with a PMHx significant for IVDU who recently (yesterday) left [facility] from [facility] after being hospitalized due to: MRSA bacteremia + septic arthritis L4-L5 w/surrounding cellulitis (pt used IV drugs again after LAMA from [facility]). Continue vancomycin IV (per ID at [facility] -complete vancomycin IV until 08/30/2025). Request for PICC line insertion (PICC line was removed upon leaving [facility]). Blood cultures obtained -will follow results. ID consult. Evaluated by Neurosurgery at [facility] and no surgical interventions recommended; and follow-up as an outpatient). Disposition per [facility] given the need for IV antibiotics but patient refused to go to [place]. TTE -no gross vegetations or significant valvular abnormalities (LVEF 55-60%). Case management/social service consult (per ED physician: The case assistant on right now expects that placement will probably take some time and doesn't feel this a good case for placement from the ED ). Polysubstance abuse/IVDU: Cocaine and heroin. Recently started on methadone 5 mg p.o. daily by addiction medicine at [facility]. Suboxone was discontinued. Mood disorder: Major depressive disorder, anxiety, PTSD. Continue Zoloft 25 mg p.o. daily (psych team at [facility] recommended increase Zoloft dose but patient refused). Vraylar 1.5 mg p.o. daily was initiated; we will continue. She did not meet criteria for sectioned 12 or psychiatric admission. Psychiatric consult. Chronic hep C infection. Viral load > 800,000. HIV negative. Per ID -outpatient management. Chronic forearms wounds; due to IVDU. Wound care consult. Iron deficiency anemia. Receive 1 unit PRBC on 06/30/2025. Hemoglobin today is 9.0. Continue ferrous sulfate. Code status: Full DVT prophylaxis: Lovenox Patient will need hospitalization for at least 2 midnights for MRSA bacteremia and septic arthritis treatment with IV antibiotics, repeat blood cultures and evaluation by ID Service and case management. Quality Stroke Does the patient have a stroke diagnosis?: No VTE Prior VTE?: No VTE Risk Level:: Medical - moderate - high VTE Device Contraindication: Treatment Not Indicated VTE Drug Contraindication: N/A - Med Ordered
[2025-07-18 06:10] LABS: MANUAL DIFF FLAG NO
[2025-07-18 06:30] LABS: Hematocrit 28.7 % (37.0-47.0); Hemoglobin 8.5 g/dl (12.0-16.0); Imm Gran Abs Auto 0.02 X10*3/uL (0.00-0.03); Imm Gran Pct Auto 0.4 % (0.0-0.4); Lymphocytes Absolute Auto 0.8 X10*3/uL (1.2-4.9); Mean Corpuscular HGB Conc 29.6 g/dl (31.0-35.0); Mean Corpuscular Hemoglobin 22.2 pg (27.0-33.0); Mean Corpuscular Volume 74.9 fL (80.0-98.0); NRBC Abs Auto 0.000 X10*3/uL (0.0-0.012); NRBC Pct Auto 0.0 /100WBC (0.0-0.2); Platelet Count 269 X10*3/uL (160-400); Red Blood Count 3.83 X10*6/uL (4.20-5.50); White Blood Count 5.5 X10*3/uL (4.8-10.8)
[2025-07-18 06:32] LABS: Alanine Aminotransferase 9 U/L (0-31); Albumin Level 3.6 g/dL (3.5-5.0); Alkaline Phosphatase 70 U/L (39-117); Anion Gap 11 (12-20); Aspartate Amino Transferase 26 U/L (5-31); Blood Urea Nitrogen 20 mg/dL (9-16); Calcium 9.0 mg/dL (8.4-10.2); Carbon Dioxide 25 mmol/L (22-29); Chloride 107 mmol/L (96-108); Creatinine Clr Calc Pharmacy 74.8; Estimated Glomerular Filt Rate > 60; Magnesium 1.9 mg/dL (1.6-2.6); Potassium 3.8 mmol/L (3.3-5.1); Sodium 139 mmol/L (135-145); Total Protein 7.7 g/dL (6.5-8.0)
--- NOTE | 2025-07-18 07:13 | HO.PM.IMPN ---
Subjective Subjective Date of Service: 07/18/25 Interval History: Patient was threatening to leave AMA I have initiated OxyContin, oxycodone, methadone , Ativan for anxiety, increase sertraline to 50 mg, added Ambien night dose Addiction Medicine consulted Psychiatry consulted We are unable to place a PICC line given need to rule out bacteremia for at least 48 hours prior to ensure no bacteremia Per case management, she would like to go to a short-term rehab, however to Psychiatry, she reported she would like to go home and continue IV antibiotics Review of Systems Review of Systems: Yes all other systems are reviewed and are negative Physical Exam Exam: Exam: General: Alert, oriented, in no acute distress. Well nourished and cooperative. Afebrile. Heart: RRR, no murmurs, rubs or gallops. Lungs: Clear to auscultation bilaterally. No wheezes, rales, or rhonchi. Normal respiratory effort. Abdomen:Sluggish Bowel sounds Skin : Vital Signs: Vital Signs: Last Vital Signs Temp 97.4 F 07/18/25 02:16 Pulse 90 07/18/25 02:16 Resp 14 07/18/25 03:13 BP 150/89 H 07/18/25 02:16 Pulse Ox 100 07/18/25 02:16 O2 Del Method Room Air 07/18/25 02:16 BMI result Body Mass Index 23.4 Objective Data Active Medications Acetaminophen (Acetaminophen 325 Mg Tablet) 975 mg PO Q6H PRN PRN Reason: Pain, Mild 1-3,fever,headache Calcium Carbonate (Calcium Carbonate 750 Mg Tab.Chew) 750 mg PO Q4H PRN PRN Reason: Heartburn Cariprazine (Cariprazine Hcl 1.5 Mg Capsule) 1.5 mg PO DAILY [facility] Stop: 07/31/25 09:00 Enoxaparin Sodium (Enoxaparin Sodium 40 Mg/0.4 Ml Syringe) 40 mg SUBCUT Q24H [facility] Ferrous Sulfate (Ferrous Sulfate 324 Mg Tablet.Dr) 324 mg PO BID YESENIA Gabapentin (Gabapentin 100 Mg Capsule) 100 mg PO TID YESENIA Hydroxyzine HCl (Hydroxyzine Hcl 50 Mg Tablet) 50 mg PO Q6H PRN PRN Reason: Anxiety Magnesium Hydroxide (Milk Of Magnesia 30 Ml Oral.Susp) 30 ml PO DAILY PRN PRN Reason: Constipation Methadone HCl (Methadone Hcl 20 Mg/2 Ml Oral.Conc) 50 mg PO DAILY [facility] Oxycodone HCl (Oxycodone Hcl Immed Release 5 Mg Tablet) 5 mg PO Q6H PRN PRN Reason: Pain, Severe (Pain Scale 7-10) Pharmacy Consult (Consult Rx Vancomycin Dosing) 1 each MISCELLANE DAILY PRN PRN Reason: Consult order Sertraline HCl (Sertraline Hcl 25 Mg Tablet) 25 mg PO DAILY [facility] Sodium Chloride (0.9 % Sodium Chloride Flush 3 Ml Syringe) 3 ml IVFLUSH QSHIFT [facility] Labs 07/18/25 05:57 07/18/25 05:57 Labs: Laboratory Results - last 24 hr 07/17/25 07/17/25 07/17/25 14:33 14:43 15:49 MCV 75.8 L MCH 22.0 L MCHC 29.0 L RDW 26.2 H Plt Count 236 MPV 9.4 Immature Gran % (Auto) 0.0 Neut % (Auto) 73.3 H Lymph % (Auto) 20.3 [place] % (Auto) 4.6 Eos % (Auto) 0.9 Baso % (Auto) 0.9 Lymph # (Auto) 0.9 L [place] # (Auto) 0.2 Eos # (Auto) 0.0 Baso # (Auto) 0.0 Abs Immat Gran (auto) 0.00 Absolute Neuts (auto) 3.3 Absolute Nucleated RBC 0.000 Nucleated RBC % (auto) 0.0 ESR 60 H Anion Gap 11 L Estim Creat Clear Calc 71.6 Estimated GFR > 60 Random Glucose 106 Lactic Acid Calcium 9.2 Magnesium 1.9 Total Bilirubin 0.2 AST 32 H ALT 15 Alkaline Phosphatase 79 C-Reactive Protein 0.61 H Total Protein 8.9 H Albumin 4.3 Lipase 7 L Urine Color Yellow Urine Appearance Clear Urine pH 6.0 Ur Specific [place] 1.020 Urine Protein Trace Urine Glucose (UA) Negative Urine Ketones Negative Urine Blood Small (1+) H Urine Nitrite Negative Ur Leukocyte Esterase Trace H Urine RBC 11-20 H Urine WBC 0-5 Ur Squamous Epith Cells 3-5 Urine Bacteria None Seen Hyaline Casts 0-2 Salicylates < 5.0 L Urine Opiates Screen POSITIVE H Ur Buprenorphine Scrn Positive H Ur Oxycodone Screen Positive H Urine Methadone Screen Positive H Urine Fentanyl Screen POSITIVE H Acetaminophen < 3 Ur Barbiturates Screen Not Detected Ur Phencyclidine Scrn Not Detected Ur Amphetamines Screen Not Detected U Benzodiazepines Scrn Not Detected Urine Cocaine Screen POSITIVE H U Marijuana (THC) Screen Not Detected Ethyl Alcohol < 10 07/17/25 07/18/25 21:38 05:57 MCV 74.9 L MCH 22.2 L MCHC 29.6 L RDW 26.6 H Plt Count 269 MPV 9.6 Immature Gran % (Auto) 0.4 Neut % (Auto) 75.2 H Lymph % (Auto) 15.0 L [place] % (Auto) 6.9 Eos % (Auto) 1.6 Baso % (Auto) 0.9 Lymph # (Auto) 0.8 L [place] # (Auto) 0.4 Eos # (Auto) 0.1 Baso # (Auto) 0.1 Abs Immat Gran (auto) 0.02 Absolute Neuts (auto) 4.1 Absolute Nucleated RBC 0.000 Nucleated RBC % (auto) 0.0 ESR Anion Gap 11 L Estim Creat Clear Calc 74.8 Estimated GFR > 60 Random Glucose 92 Lactic Acid 0.9 Calcium 9.0 Magnesium 1.9 Total Bilirubin 0.2 AST 26 ALT 9 Alkaline Phosphatase 70 C-Reactive Protein Total Protein 7.7 Albumin 3.6 Lipase Urine Color Urine Appearance Urine pH Ur Specific [place] Urine Protein Urine Glucose (UA) Urine Ketones Urine Blood Urine Nitrite Ur Leukocyte Esterase Urine RBC Urine WBC Ur Squamous Epith Cells Urine Bacteria Hyaline Casts Salicylates Urine Opiates Screen Ur Buprenorphine Scrn Ur Oxycodone Screen Urine Methadone Screen Urine Fentanyl Screen Acetaminophen Ur Barbiturates Screen Ur Phencyclidine Scrn Ur Amphetamines Screen U Benzodiazepines Scrn Urine Cocaine Screen U Marijuana (THC) Screen Ethyl Alcohol Assessment and Plan (1) MRSA bacteremia: Status: Acute Plan Kathy Ballard is a 50 y/owoman with a PMHx significant for IVDU who recently (a day b4 admission to our ED) left AMA from [facility] after being hospitalized due to: MRSA bacteremia + septic arthritis L4-L5 w/surrounding cellulitis (pt used IV drugs again after LAMA from [facility]). Continue vancomycin IV (per ID at [facility] -complete vancomycin IV until 08/30/2025). Request for PICC line insertion (PICC line was removed upon leaving [place]). Blood cultures obtained -will follow results. ID consult. Evaluated by Neurosurgery at [facility] and no surgical interventions recommended; and follow-up as an outpatient). Disposition per [facility] given the need for IV antibiotics but patient refused to go to [place]. TTE -no gross vegetations or significant valvular abnormalities (LVEF 55-60%). Case management/social service consult (per ED physician: The patient case manager on right now expects that placement will probably take some time and doesn't feel this a good case for placement from the ED ). Polysubstance abuse/IVDU: Cocaine and heroin. Recently started on methadone 5 mg p.o. daily by addiction medicine at [facility]. Suboxone was discontinued. Mood disorder: Major depressive disorder, anxiety, PTSD. Increase Zoloft 50 mg p.o. daily (psych team at [facility] recommended increase Zoloft dose but patient refused). Vraylar 1.5 mg p.o. daily was initiated; we will continue. She did not meet criteria for sectioned 12 or psychiatric admission. Psychiatric consulted- told them she would want to leave and continue medication at home which is not a possibility given we need to r/o bacteremia which will be next week before we can place a line for ongoing rx. Chronic hep C infection. Viral load > 800,000. HIV negative. Per ID -outpatient management. Chronic forearms wounds; due to IVDU. Wound care consult. Iron deficiency anemia. Receive 1 unit PRBC on 06/30/2025. Hemoglobin today is 9.0. Continue ferrous sulfate. GERD - Omeprazole Code status: Full DVT prophylaxis: Lovenox Patient will need hospitalization for at least until early next week for MRSA bacteremia and septic arthritis treatment with IV antibiotics, repeat blood cultures and evaluation by ID Service and case management, psychiatry , wound care and Quality Stroke Does the patient have a stroke diagnosis?: No VTE Prior VTE?: No VTE Risk Level:: Medical - moderate - high VTE Device Contraindication: Treatment Not Indicated VTE Drug Contraindication: N/A - Med Ordered
--- NOTE | 2025-07-18 08:02 | PHA.PROG ---
Admission Date/Time: July 18, 2025 00:06 Indication: bacteremia Weight in k.3 kg Adjusted body weight in Kg: [place] body weight in Kg: Obesity Dosing Indication % IBW: Serum Creatinine - Last 168 Hours 07/17/25 07/18/25 14:43 05:57 Creatinine 0.69 0.66 Estimated CrCl and GFR - Last 168 Hours 07/17/25 07/18/25 14:43 05:57 Estim Creat Clear Calc 71.6 74.8 Estimated GFR > 60 > 60 Vancomycin Loading Dose: 1250 mg Current Vancomycin Dosing Regimen: 1000 mg Q12H Vancomycin Monitoring using AUC goal of 400 - 600 range with trough as surrogate marker: Predicted AUC 556 and trough 16.5 Date and Time for next Vancomycin Level to be drawn: 07/19 @0800 Pharmacist Comments on Vancomycin Plan: Vancomycin dosing will take advantage of go[employer]MapRX as a clinical decision support tool that uses Bayesian modeling to calculate individual patient's pharmacokinetic parameters and forecast the patient's drug concentration time course with the target goal AUC 24 range of 400 - 600 mg/L/hr.
--- NOTE | 2025-07-18 08:13 | PHA.MEDREC ---
Pharmacy Consult ? Medication Reconciliation Pharmacy has completed the medication reconciliation. Spoke with patient at bedside, she states she takes no medications at home, looks like meds were confirmed based on [facility] Medical visit discharge list. Will leave for now and let provider know.
[2025-07-18] MEDS: methADONE HCl 20 MG/2 ML ORAL.CONC 50 MG PO (08:26)
[2025-07-18] MEDS: Ferrous Sulfate 324 MG TABLET.DR PO ×2 (08:29→22:09)
[2025-07-18] MEDS: 0.9 % Sodium Chloride Flush 3 ML SYRINGE IVFLUSH ×3 (08:31→22:10)
--- NOTE | 2025-07-18 09:57 | MHC.CM.PN ---
Addendum entered by Rosanne Douglas RN 07/18/25 10:47: seafood specialist aware of plan and will initiate guest dosing w/ [facility] for start date of 07/23. Original Note: IMM delivered. Patient lives in a home w/ mother. Functionally independent. Denies use of DME or services. PCP Dr Sanches No HCP. CM provided education and offered assistance. Declines at this time. Recent stay at [facility], where she was started on Methadone. No home clinic. DP: Will need 6 wks IV vanco at [facility]. Patient previously unwilling to go to [facility], but after long discussion is agreeable. Awaiting cx, PICC and guest dosing. CM will continue to follow. Will need HCP.
[2025-07-18] MEDS: oxyCODONE HCl ER 10 MG TAB.ER.12H 20 MG PO ×2 (10:28→22:09)
--- NOTE | 2025-07-18 11:13 | MHC.RECOVRN ---
Addiction consult received for pt admitted with MRSA bacteremia + septic arthritis,Iron deficiency anemia, and IV polysubstance use.? Recovery evaluation completed, please see for additional details.? Pt continued on 50mg Methadone which was initiated at [facility]. Pt also ordered lorazepam 1mg Q6 PRN to help manage anxiety. Pt also has Oxycodone 10mg Q6 PRN, and Oxycodone 20mg BID for pain management as she reports these are the contributing factors to her leaving [facility] prior to receiving recommended treatment. ? Plan is for pt to continue methadone out pt at OT once discharged from SNF for 6wk antibiotic treatment.? Pt declined referral for continuous improvement coach but did accept written resources for community support. TW also provided education about? harm reduction techniques and the importance of seeking medical help for wound care as well as education about the current drug supply and cutting agents used.
--- NOTE | 2025-07-18 11:49 | HO.WOUND ---
Wound Consult: Initial 50 yr old female admitted to [facility] on 07/18/25 - See progress notes and H&P for detailed history. Wound consult placed for bilateral arm wounds. Patient agreeable to assessment and photo documentation. Patient with history of IVDU, Patient reports injection sites to arms, last injected two days prior into right forearm. Patient reports she typically cleans her wounds and keeps them covered with dry gauze, she reports minimal drainage. She reports using clean needles and alternating sites. Right forearm Left forearm Etiology: Wounds at injection sites Wound Bed: Left forearm dry red/brown scabing, right forearm dry red/yellow with distal area of blistering that drained clear serosang fluid (no odor) area is slightly reddened. Drainage / Odor: scant serosanguineous to right forearm Edges: ? irregular, defined Karley wound: ? No Induration, Fluctuance or Warmth noted Pain: none Goals of Treatment: ? hydrocolloid dressing for mild drainage absorption, moist healing environment for autolytic debridement, providing protective barrier. Recommendations: Bilateral forearms: cleanse with saline, pat dry, apply hydrocolloid (exuderm LP or exuderm satin), change every other day and PRN. Note: hydrocolloid absorbs small amounts of exudate and will develop a white bubble , this is expected and a sign that the dressing is working. Re-consult wound care Nurse for wound deterioration or wound changes.
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
[2025-07-19 03:16] VITALS: BP 117/64; PULSE 76; RESP 18; TEMP 36.7
--- NOTE | 2025-07-19 07:12 | HO.PM.IMPN ---
Subjective Subjective Date of Service: 07/19/25 Interval History: Patient did not endorse any concerns to me Was briefly hypotensive hence giving her continues fluid administration ID saw the patient and recommended continuous aggressive IV meds Can not place a PICC line in her until Tuesday given limited resources hence we will need to stay into next week Review of Systems Review of Systems: Yes all other systems are reviewed and are negative Physical Exam Exam: Exam: General: Alert, oriented, in no acute distress. Well nourished and cooperative. Afebrile. Heart: RRR, no murmurs, rubs or gallops. Lungs: Clear to auscultation bilaterally. No wheezes, rales, or rhonchi. Normal respiratory effort. Abdomen:Sluggish Bowel sounds Skin : Vital Signs: Vital Signs: Last Vital Signs Temp 98.1 F 07/19/25 03:16 Pulse 76 07/19/25 03:16 Resp 18 07/19/25 03:16 BP 117/64 07/19/25 03:16 Pulse Ox 97 07/18/25 19:18 O2 Del Method Room Air 07/19/25 03:16 BMI result Body Mass Index 23.4 Objective Data Active Medications Acetaminophen (Acetaminophen 325 Mg Tablet) 975 mg PO Q6H PRN PRN Reason: Pain, Mild 1-3,fever,headache Calcium Carbonate (Calcium Carbonate 750 Mg Tab.Chew) 750 mg PO Q4H PRN PRN Reason: Heartburn Cariprazine (Cariprazine Hcl 1.5 Mg Capsule) 1.5 mg PO DAILY [facility] Stop: 07/31/25 09:00 Last Admin: 07/18/25 08:28 Dose: 1.5 mg Documented By: MARYLOU Enoxaparin Sodium (Enoxaparin Sodium 40 Mg/0.4 Ml Syringe) 40 mg SUBCUT Q24H [facility] Last Admin: 07/18/25 08:27 Dose: 40 mg Documented By: MARYLOU Ferrous Sulfate (Ferrous Sulfate 324 Mg Tablet.) 324 mg PO BID [facility] Last Admin: 07/18/25 22:09 Dose: 324 mg Documented By: BRENDAN Gabapentin (Gabapentin 100 Mg Capsule) 100 mg PO TID [facility] Last Admin: 07/18/25 22:10 Dose: Not Given Documented By: BRENDAN Non-Admin Reason: Patient Refused Hydroxyzine HCl (Hydroxyzine Hcl 50 Mg Tablet) 50 mg PO Q6H PRN PRN Reason: Anxiety Vancomycin HCl 1,000 mg/ (Sodium Chloride) 270 mls @ 270 mls/hr IV Q12H [facility] Last Infusion: 07/18/25 23:27 Dose: Infused Documented By: BRENDAN Lorazepam (Lorazepam 1 Mg Tablet) 1 mg PO Q6H PRN PRN Reason: Anxiety, mild Last Admin: 07/18/25 22:09 Dose: 1 mg Documented By: BRENDAN Magnesium Hydroxide (Milk Of Magnesia 30 Ml Oral.Susp) 30 ml PO DAILY PRN PRN Reason: Constipation Methadone HCl (Methadone Hcl 20 Mg/2 Ml Oral.Conc) 50 mg PO DAILY [facility] Last Admin: 07/18/25 08:26 Dose: 50 mg Documented By: MARYLOU Co-signed By: BHAVESH Oxycodone HCl (Oxycodone Hcl Er 10 Mg Tab.Er.12h) 20 mg PO BID [facility] Last Admin: 07/18/25 22:09 Dose: 20 mg Documented By: BRENDAN Oxycodone HCl (Oxycodone Hcl Immed Release 5 Mg Tablet) 10 mg PO Q6H PRN PRN Reason: Pain, Moderate(Pain Scale 4-6) Pharmacy Consult (Consult Rx Vancomycin Dosing) 1 each MISCELLANE DAILY PRN PRN Reason: Consult order Sertraline HCl (Sertraline Hcl 50 Mg Tablet) 50 mg PO DAILY [facility] Sodium Chloride (0.9 % Sodium Chloride Flush 3 Ml Syringe) 3 ml IVFLUSH QSHIFT [facility] Last Admin: 07/18/25 22:10 Dose: 3 ml Documented By: BRENDAN Zolpidem Tartrate (Zolpidem Tartrate 5 Mg Tablet) 10 mg PO BEDTIME PRN PRN Reason: Insomnia Last Admin: 07/18/25 22:09 Dose: 10 mg Documented By: BRENDAN Labs 07/19/25 16:07 07/19/25 08:11 Microbiology Microbiology Results: Microbiology 07/17/25 15:49 Blood Culture - Preliminary Blood - Venous No growth after 24 hours. 07/17/25 15:49 Blood Culture - Preliminary Blood - Venous No growth after 24 hours. Assessment and Plan (1) MRSA bacteremia: Status: Acute Plan Kathy Ballard is a 50 y/owoman with a PMHx significant for IVDU who recently (a day b4 admission to our ED) left AMA from [facility] after being hospitalized due to: MRSA bacteremia + septic arthritis L4-L5 w/surrounding cellulitis (pt used IV drugs again after LAMA from [facility]). Continue vancomycin IV (per ID at [facility] -complete vancomycin IV until 08/30/2025). Request for PICC line insertion (PICC line was removed upon leaving AM). Blood cultures obtained -will follow results. ID consult. Evaluated by Neurosurgery at [facility] and no surgical interventions recommended; and follow-up as an outpatient). Disposition per [facility] given the need for IV antibiotics but patient refused to go to [place]. TTE -no gross vegetations or significant valvular abnormalities (LVEF 55-60%). Case management/social service consult (per ED physician: The correctional counselor/case manager on right now expects that placement will probably take some time and doesn't feel this a good case for placement from the ED ). 07/19/25: Patient did not endorse any concerns to me Was briefly hypotensive hence giving her continues fluid administration ID saw the patient and recommended continuous aggressive IV meds Can not place a PICC line in her until Tuesday given limited resources hence we will need to stay into next week Polysubstance abuse/IVDU: Cocaine and heroin. Recently started on methadone 5 mg p.o. daily by addiction medicine at [facility]. Suboxone was discontinued. Mood disorder: Major depressive disorder, anxiety, PTSD. Increase Zoloft 50 mg p.o. daily (psych team at [facility] recommended increase Zoloft dose but patient refused). Vraylar 1.5 mg p.o. daily was initiated; we will continue. She did not meet criteria for sectioned 12 or psychiatric admission. Psychiatric consulted- told them she would want to leave and continue medication at home which is not a possibility given we need to r/o bacteremia which will be next week before we can place a line for ongoing rx. P refusing meds intermittently per her wishes Chronic hep C infection. Viral load > 800,000. HIV negative. Per ID -outpatient management. Chronic forearms wounds; due to IVDU. Wound care consult. Iron deficiency anemia. Receive 1 unit PRBC on 06/30/2025. H&H. Continue ferrous sulfate. GERD - Omeprazole Code status: Full DVT prophylaxis: Lovenox Patient will need hospitalization for at least until early next week for MRSA bacteremia and septic arthritis treatment with IV antibiotics, repeat blood cultures and evaluation by ID Service and case management, psychiatry , wound care and we have limited resources and hence can't place a PICC line in her until next tuesday at the latest Quality Stroke Does the patient have a stroke diagnosis?: No VTE Prior VTE?: No VTE Risk Level:: Medical - moderate - high VTE Device Contraindication: Treatment Not Indicated VTE Drug Contraindication: N/A - Med Ordered
[2025-07-19 08:00] VITALS: BP 114/69; PULSE 96; RESP 14; TEMP 37.4; O2SAT 97
[2025-07-19] MEDS: methADONE HCl 20 MG/2 ML ORAL.CONC 50 MG PO (08:04)
[2025-07-19] MEDS: oxyCODONE HCl ER 10 MG TAB.ER.12H 20 MG PO ×2 (08:05→21:01)
[2025-07-19] MEDS: Ferrous Sulfate 324 MG TABLET.DR PO ×2 (08:05→21:02)
[2025-07-19] MEDS: 0.9 % Sodium Chloride Flush 3 ML SYRINGE IVFLUSH (08:10)
[2025-07-19 08:42] LABS: Creatinine Clr Calc Pharmacy 77.2; Estimated Glomerular Filt Rate > 60
--- NOTE | 2025-07-19 09:01 | HE.PHANOTE ---
RE: VANCO Trough returned @ 13.9. Renal function is stable. Indication is bacteremia. Adjusting dose to 750 mg Q8H to ensure efficacy. Predicted AUC 592 and trough 19.1. Will continue to monitor renal function. Next trough due 07/20 @0800.
--- NOTE | 2025-07-19 09:18 | MHC.RECOVRN ---
Addendum entered by Isha Oliveros RN 07/19/25 13:28: Spoke to Piper at [facility] ,who states the paperwork has been received and is under review for guest dosing. She states she will contact us if further information is needed. Addendum entered by Isha Oliveros RN 07/19/25 11:46: Makenna at [facility] confirmed she has received requested documentation and will be faxing [facility] the ABH form they requested shortly. Will follow up with [facility] later this afternoon to confirm receipt. Addendum entered by Isha Oliveros RN 07/19/25 11:01: [facility] called and requested and ABH form be sent to them from [facility] in order to initiate guest dosing. Spoke to Olga (clinical supv) at [facility] and requested documentation be sent. Olga requested a release forms signed by the pt for [facility] to speak with [facility] and for [facility] to speak with [facility]. Release forms completed and faxed to [facility]. [facility] to continue to follow to ensure guest dosing is initiated. Original Note: guest dosing paperwork sent to [facility] @ fax# [phone] will call shortly to verify fax received.
--- NOTE | 2025-07-19 12:45 | P.CNID_ITS ---
History of Present Illness Data of Consult Service Date: 07/19/25 Requesting physician: Devorah Seo Primary Care Provider: Oniel Sanches MD HPI Reason for consult: MRSA bacteremia She presents for psychiatric care for PTSD after leaving [facility] on 07/18 where she was hospitalized for L4-L5 MRSA sacroileal infection. 07/17 blood cultures negative x 2 here. She had bacteremia reported there MRSA. She had unremarkable TTE. She was HIV negative and Hepatitis C viral load 800,000. She feels well now. She used heroin and cocaine before coming here. Review of Systems 2 Review of Systems: Yes all other systems are reviewed and are negative PMFSH Past Medical History Medical History Anxiety and depression Anemia PTSD (post-traumatic stress disorder) MDD (major depressive disorder), recurrent episode, severe Panic attacks Peptic ulcer disease Polysubstance abuse Migraine Insomnia Hypothyroid GERD (gastroesophageal reflux disease) Family History Family History Father COPD (chronic obstructive pulmonary disease) Lung cancer Mother No problems noted. Maternal Grandmother Esophageal cancer Maternal Grandfather Pancreatic cancer Paternal Grandmother Esophageal cancer Stomach cancer Maternal Aunt Breast cancer Family history: reviewed and not pertinent Surgical History Surgical History History of section Social History Social History Household Members: Friend(s) Household Members Other:: pt states she lives with Mother Housing: Apartment Do you presently have visiting nurse or other home services: No Alcohol intake: unknown Patient Tobacco Use Status: Never used Tobacco Tobacco use type: Cigarette e-Cigarette/Vaping Use: Never Used Second Hand Smoke Exposure: No Substance Use Type: Crack/Cocaine and Heroin service: No Current occupational status: employed Sexual orientation: Straight/Heterosexual Cognitive needs: No Hearing needs: No Vision needs: No Meds Allergies Allergy/AdvReac Type Severity Reaction Status Date / Time diphenhydramine (From Allergy Severe RASH Verified 07/17/25 14:45 BENADRYL) trazodone (TRAZODONE) AdvReac Severe DYSTONIC Verified 07/17/25 14:45 risperidone (Risperdal) AdvReac Unknown Dystonia Verified 07/17/25 14:45 Active Medications: Current Medications Acetaminophen (Acetaminophen 325 Mg Tablet) 975 mg PO Q6H PRN PRN Reason: Pain, Mild 1-3,fever,headache Calcium Carbonate (Calcium Carbonate 750 Mg Tab.Chew) 750 mg PO Q4H PRN PRN Reason: Heartburn Cariprazine (Cariprazine Hcl 1.5 Mg Capsule) 1.5 mg PO DAILY [facility] Stop: 07/31/25 09:00 Last Admin: 07/19/25 08:04 Dose: 1.5 mg Docusate Sodium (Docusate Sodium 100 Mg Capsule) 100 mg PO BID PRN PRN Reason: Constipation Enoxaparin Sodium (Enoxaparin Sodium 40 Mg/0.4 Ml Syringe) 40 mg SUBCUT Q24H [facility] Last Admin: 07/19/25 08:05 Dose: 40 mg Ferrous Sulfate (Ferrous Sulfate 324 Mg Tablet.Dr) 324 mg PO BID [facility] Last Admin: 07/19/25 08:05 Dose: 324 mg Gabapentin (Gabapentin 100 Mg Capsule) 100 mg PO TID [facility] Last Admin: 07/19/25 08:01 Dose: Not Given Hydroxyzine HCl (Hydroxyzine Hcl 50 Mg Tablet) 50 mg PO Q6H PRN PRN Reason: Anxiety Vancomycin HCl 750 mg/ Sodium (Chloride) 265 mls @ 265 mls/hr IV Q8H [facility] Last Infusion: 07/19/25 11:40 Dose: Infused Lorazepam (Lorazepam 1 Mg Tablet) 1 mg PO Q6H PRN PRN Reason: Anxiety, mild Last Admin: 07/19/25 08:10 Dose: 1 mg Magnesium Hydroxide (Milk Of Magnesia 30 Ml Oral.Susp) 30 ml PO DAILY PRN PRN Reason: Constipation Methadone HCl (Methadone Hcl 20 Mg/2 Ml Oral.Conc) 50 mg PO DAILY [facility] Last Admin: 07/19/25 08:04 Dose: 50 mg Oxycodone HCl (Oxycodone Hcl Er 10 Mg Tab.Er.12h) 20 mg PO BID [facility] Last Admin: 07/19/25 08:05 Dose: 20 mg Oxycodone HCl (Oxycodone Hcl Immed Release 5 Mg Tablet) 10 mg PO Q6H PRN PRN Reason: Pain, Moderate(Pain Scale 4-6) Pharmacy Consult (Consult Rx Vancomycin Dosing) 1 each MISCELLANE DAILY PRN PRN Reason: Consult order Sertraline HCl (Sertraline Hcl 50 Mg Tablet) 50 mg PO DAILY [facility] Last Admin: 07/19/25 08:07 Dose: Not Given Sodium Chloride (0.9 % Sodium Chloride Flush 3 Ml Syringe) 3 ml IVFLUSH QSHIFT [facility] Last Admin: 07/19/25 08:10 Dose: 3 ml Zolpidem Tartrate (Zolpidem Tartrate 5 Mg Tablet) 10 mg PO BEDTIME PRN PRN Reason: Insomnia Last Admin: 07/18/25 22:09 Dose: 10 mg Home Medications ?Medication ?Instructions ?Recorded ?Confirmed ?Last Taken ?Type buprenorphine 2 mg-naloxone 0.5 mg 2 tab sublingual DA POLLO 07/17/25 07/17/25 07/15/25 History sublingual tablet gabapentin 100 mg capsule 100 mg PO TID 07/17/2507/1707/15/25 History sertraline 25 mg tablet (Zoloft) 25 mg PO DAILY 07/17/25 07/15/25 History Physical Exam 2 Vital Signs: Vital Signs: Last Vital Signs Temp 99.3 F 07/19/25 08:00 Pulse 96 07/19/25 08:00 Resp 14 07/19/25 08:00 BP 114/69 07/19/25 08:00 Pulse Ox 97 07/19/25 08:00 O2 Del Method Room Air 07/19/25 08:00 BMI result Body Mass Index 23.4 Const: General: cooperative HEENT: Head: Yes normal to inspection Face and sinus: Yes normal facial exam Mouth: Normal oral and palatal mucosa present Teeth and gingiva: d entition normal Eyes: General: appearance normal, both eyes and all related structures P upils: Equal, round and reactive pupils present Resp: Effort & Inspection: normal respiratory effort Cardio: Rate: regular rate Rhythm: regular rhythm GI: Palpation (GI): Soft to palpation and nontender : General: Yes no CVA tenderness Back/Spine/Pelvis: Back: no CVA tenderness Skin: General skin exam: no rashes or lesions noted Neuro: General: moves all extremities Cranial nerves: Yes Equal, round and reactive pupils present Extrem: Other: forearm bilateral flexor erythema?xylazine,leathery skin Psych: Appearance: grossly normal Results Labs 07/18/25 05:57 07/19/25 08:11 Labs: BMP 07/19/25 08:11 Creatinine 0.64 Microbiology Microbiology Results: Microbiology 07/17/25 15:49 Blood - Venous Blood Culture - Preliminary No growth after 24 hours. 07/17/25 15:49 Blood - Venous Blood Culture - Preliminary No growth after 24 hours. Assessment and Plan (1) MDD (major depressive disorder), recurrent episode, severe: Status: Acute (2) Active intravenous drug use: Status: Acute (3) Cocaine use disorder: Status: Acute (4) Opioid use disorder: Status: Acute (5) MRSA bacteremia: Status: Acute (6) Septic arthritis of lumbar spine: Status: Acute Plan I agree with aggressive therapy for LS spine OM Vancomycin through 08/30 in rehab facility,trough 15-20, dose per pharmacy. Probable Doxycycline after. Would like to see back and treat Hepatitis C also (treated and reinfected in past)
--- NOTE | 2025-07-19 13:26 | HO.WOUND ---
Wound Consult: Initial 50 yr old female admitted to [facility] on 07/18/25 - See progress notes and H&P for detailed history. Wound consult placed for bilateral arm wounds. Patient agreeable to assessment and photo documentation. Patient with history of IVDU, Patient reports injection sites to arms, last injected two days prior into right forearm. Patient reports she typically cleans her wounds and keeps them covered with dry gauze, she reports minimal drainage. She reports using clean needles and alternating sites. Right forearm 07/18/25 Right forearm 07/19/25 Left forearm 07/18/25 Left forearm 07/19/25 Etiology: Wounds from injection sites Wound Bed: Left forearm dry red/brown scabbing partially lifting revealing full thickness wound, right forearm dry red/yellow with distal area of blistering that drained clear serosang fluid (no odor) area is slightly reddened. Drainage / Odor: scant serosanguineous to right forearm Edges: ? irregular, defined Karley wound: ? No Induration, Fluctuance or Warmth noted Pain: none Goals of Treatment: ? switch to medihoney to promote an optimal moist wound healing environment including reducing edema, lowering wound pH, debriding slough and mild antimicrobial effect, durafiber for drainage absorption Recommendations: Bilateral forearms: cleanse with saline, pat dry, apply thin layer of medihoney to wound bed, cover with durafiber ag and foam, change every other day and PRN. Medihoney tube left at bedside, medihoney can be obtained in wound care office. Re-consult wound care Nurse for wound deterioration or wound changes.
[2025-07-19 15:17] VITALS: BP 86/52; PULSE 80; RESP 16; TEMP 36.2; O2SAT 99
[2025-07-19 15:39] VITALS: BP 98/64
[2025-07-19] MEDS: oxyCODONE HCl Immed Release 5 MG TABLET 10 MG PO (15:53)
[2025-07-19] MEDS: LACTATED RINGERS 1629 ML IV (15:54)
--- NOTE | 2025-07-19 16:06 | MHC.CM.PN ---
PER MD ROUNDS, PT WILL LIKELY BE READY TO DC TUESDAY AFTER GETTING A LINE DCP: STR FOR IV ABX (END DATE 08/30) VIA BLS TRANSPORT [facility] ARE OFFERING BEDS METHADONE ARRANGEMENTS INITIATED
[2025-07-19 16:24] LABS: Hematocrit 28.3 % (37.0-47.0); Hemoglobin 8.3 g/dl (12.0-16.0); Mean Corpuscular HGB Conc 29.3 g/dl (31.0-35.0); Mean Corpuscular Hemoglobin 22.4 pg (27.0-33.0); Mean Corpuscular Volume 76.3 fL (80.0-98.0); NRBC Abs Auto 0.000 X10*3/uL (0.0-0.012); NRBC Pct Auto 0.0 /100WBC (0.0-0.2); Platelet Count 254 X10*3/uL (160-400); Red Blood Count 3.71 X10*6/uL (4.20-5.50); White Blood Count 4.2 X10*3/uL (4.8-10.8)
[2025-07-19 17:32] VITALS: BP 100/70
--- NOTE | 2025-07-19 17:58 | PC.NURSE ---
Lo BP 86/52 noted by [facility] to RN. made aware, LR bolus of 1629 ordered with 100NS maint to follow as well as 2.5 mg midodrine scheduled. F/u BP w/in hr 98/64 and second at 100/70. Pt alert and oriented, asymptomatic. Will continue to monitor.
[2025-07-19 19:36] VITALS: BP 109/67; PULSE 81; RESP 16; TEMP 36.1; O2SAT 96
[2025-07-20] VITALS (8 sets, daily range): BP systolic 106–131; BP diastolic 63–82; PULSE 76–102; RESP 16–17; TEMP 36.2–36.6; O2SAT 96–99
[2025-07-20 06:14] LABS: MANUAL DIFF FLAG NO
[2025-07-20 06:17] LABS: Hematocrit 27.9 % (37.0-47.0); Hemoglobin 8.0 g/dl (12.0-16.0); Imm Gran Abs Auto 0.02 X10*3/uL (0.00-0.03); Imm Gran Pct Auto 0.5 % (0.0-0.4); Lymphocytes Absolute Auto 1.2 X10*3/uL (1.2-4.9); Mean Corpuscular HGB Conc 28.7 g/dl (31.0-35.0); Mean Corpuscular Hemoglobin 22.0 pg (27.0-33.0); Mean Corpuscular Volume 76.6 fL (80.0-98.0); NRBC Abs Auto 0.000 X10*3/uL (0.0-0.012); NRBC Pct Auto 0.0 /100WBC (0.0-0.2); Platelet Count 259 X10*3/uL (160-400); Red Blood Count 3.64 X10*6/uL (4.20-5.50); White Blood Count 4.1 X10*3/uL (4.8-10.8)
[2025-07-20 06:35] LABS: Alanine Aminotransferase 10 U/L (0-31); Albumin Level 3.1 g/dL (3.5-5.0); Alkaline Phosphatase 60 U/L (39-117); Anion Gap 9 (12-20); Aspartate Amino Transferase 22 U/L (5-31); Blood Urea Nitrogen 20 mg/dL (9-16); Calcium 8.3 mg/dL (8.4-10.2); Carbon Dioxide 23 mmol/L (22-29); Chloride 112 mmol/L (96-108); Creatinine Clr Calc Pharmacy 78.4; Estimated Glomerular Filt Rate > 60; Magnesium 1.9 mg/dL (1.6-2.6); Potassium 3.7 mmol/L (3.3-5.1); Sodium 140 mmol/L (135-145); Total Protein 6.7 g/dL (6.5-8.0)
--- NOTE | 2025-07-20 07:25 | P.PNIM_ITS ---
Subjective Subjective Date of Service: 07/20/25 Interval History: No ON events Review of Systems Review of Systems: Yes all other systems are reviewed and are negative Physical Exam 2 Exam: Exam: General: Alert, oriented, in no acute distress. Well nourished and cooperative. Afebrile. Heart: RRR, no murmurs, rubs or gallops. Lungs: Clear to auscultation bilaterally. No wheezes, rales, or rhonchi. Normal respiratory effort. Abdomen:Sluggish Bowel sounds Skin : Vital Signs: Vital Signs: Last Vital Signs Temp 97.4 F 07/20/25 03:08 Pulse 85 07/20/25 03:08 Resp 17 07/20/25 03:08 BP 117/71 07/20/25 03:08 Pulse Ox 97 07/20/25 03:08 O2 Del Method Room Air 07/20/25 03:08 BMI result Body Mass Index 23.4 Objective Data Active Medications Acetaminophen (Acetaminophen 325 Mg Tablet) 975 mg PO Q6H PRN PRN Reason: Pain, Mild 1-3,fever,headache Calcium Carbonate (Calcium Carbonate 750 Mg Tab.Chew) 750 mg PO Q4H PRN PRN Reason: Heartburn Cariprazine (Cariprazine Hcl 1.5 Mg Capsule) 1.5 mg PO DAILY [facility] Stop: 07/31/25 09:00 Last Admin: 07/19/25 08:04 Dose: 1.5 mg Documented By: DEMARCUS Docusate Sodium (Docusate Sodium 100 Mg Capsule) 100 mg PO BID PRN PRN Reason: Constipation Enoxaparin Sodium (Enoxaparin Sodium 40 Mg/0.4 Ml Syringe) 40 mg SUBCUT Q24H [facility] Last Admin: 07/19/25 08:05 Dose: 40 mg Documented By: DEMARCUS Ferrous Sulfate (Ferrous Sulfate 324 Mg Tablet.) 324 mg PO BID [facility] Last Admin: 07/19/25 21:02 Dose: 324 mg Documented By: BRENDAN Gabapentin (Gabapentin 100 Mg Capsule) 100 mg PO TID [facility] Last Admin: 07/19/25 21:02 Dose: Not Given Documented By: BRENDAN Non-Admin Reason: Patient Refused Hydroxyzine HCl (Hydroxyzine Hcl 50 Mg Tablet) 50 mg PO Q6H PRN PRN Reason: Anxiety Vancomycin HCl 750 mg/ Sodium (Chloride) 265 mls @ 265 mls/hr IV Q8H [facility] Last Infusion: 07/20/25 03:51 Dose: Infused Documented By: BRENDAN Sodium Chloride (Ns) 1,000 mls @ 100 mls/hr IVCONT .Q10H [facility] Last Admin: 07/20/25 02:41 Dose: 100 mls/hr Documented By: BRENDAN Lorazepam (Lorazepam 1 Mg Tablet) 1 mg PO Q6H PRN PRN Reason: Anxiety, mild Last Admin: 07/20/25 02:46 Dose: 1 mg Documented By: BRENDAN Magnesium Hydroxide (Milk Of Magnesia 30 Ml Oral.Susp) 30 ml PO DAILY PRN PRN Reason: Constipation Methadone HCl (Methadone Hcl 20 Mg/2 Ml Oral.Conc) 50 mg PO DAILY [facility] Last Admin: 07/19/25 08:04 Dose: 50 mg Documented By: DEMARCUS Co-signed By: MARYLOU Midodrine (Midodrine Hcl 2.5 Mg Tablet) 2.5 mg PO TID@0900,1300,1700 [facility] Last Admin: 07/19/25 15:54 Dose: 2.5 mg Documented By: DEMARCUS Oxycodone HCl (Oxycodone Hcl Er 10 Mg Tab.Er.12h) 20 mg PO BID [facility] Last Admin: 07/19/25 21:01 Dose: 20 mg Documented By: BRENDAN Oxycodone HCl (Oxycodone Hcl Immed Release 5 Mg Tablet) 10 mg PO Q6H PRN PRN Reason: Pain, Moderate(Pain Scale 4-6) Last Admin: 07/19/25 15:53 Dose: 10 mg Documented By: DEMARCUS Pharmacy Consult (Consult Rx Vancomycin Dosing) 1 each MISCELLANE DAILY PRN PRN Reason: Consult order Sertraline HCl (Sertraline Hcl 50 Mg Tablet) 50 mg PO DAILY [facility] Last Admin: 07/19/25 08:07 Dose: Not Given Documented By: DEMARCUS Non-Admin Reason: Patient Refused Sodium Chloride (0.9 % Sodium Chloride Flush 3 Ml Syringe) 3 ml IVFLUSH QSHIFT [facility] Last Admin: 07/19/25 21:02 Dose: Not Given Documented By: BRENDAN Non-Admin Reason: IV Running Sodium Chloride (0.9 % Sodium Chloride Flush 3 Ml Syringe) 3 ml IVFLUSH QSHIFT [facility] Last Admin: 07/19/25 21:02 Dose: Not Given Documented By: BRENDAN Non-Admin Reason: IV Running Zolpidem Tartrate (Zolpidem Tartrate 5 Mg Tablet) 10 mg PO BEDTIME PRN PRN Reason: Insomnia Last Admin: 07/19/25 21:02 Dose: 10 mg Documented By: BRENDAN Labs 07/20/25 05:50 07/20/25 05:50 Labs: Laboratory Results - last 24 hr 07/19/25 07/19/25 07/20/25 08:11 16:07 05:50 MCV 76.3 L 76.6 L MCH 22.4 L 22.0 L MCHC 29.3 L 28.7 L RDW 27.7 H 27.9 H Plt Count 254 259 MPV 9.4 9.6 Immature Gran % (Auto) 0.5 H Neut % (Auto) 56.3 Lymph % (Auto) 28.7 Kinney % (Auto) 9.6 Eos % (Auto) 3.4 Baso % (Auto) 1.5 Lymph # (Auto) 1.2 Kinney # (Auto) 0.4 Eos # (Auto) 0.1 Baso # (Auto) 0.1 Abs Immat Gran (auto) 0.02 Absolute Neuts (auto) 2.3 Absolute Nucleated RBC 0.000 0.000 Nucleated RBC % (auto) 0.0 0.0 Hold Purple Top SEE NOTE Anion Gap 9 L Estim Creat Clear Calc 77.2 78.4 Estimated GFR > 60 > 60 Random Glucose 106 Calcium 8.3 L D Magnesium 1.9 Total Bilirubin 0.1 AST 22 ALT 10 Alkaline Phosphatase 60 Total Protein 6.7 Albumin 3.1 L Vancomycin Trough 13.9 Microbiology Microbiology Results: Microbiology 07/17/25 15:49 Blood Culture - Preliminary Blood - Venous No growth after 48 hours. 07/17/25 15:49 Blood Culture - Preliminary Blood - Venous No growth after 48 hours. Assessment and Plan (1) MRSA bacteremia: Status: Acute Plan Kathy Ballard is a 50 y/owoman with a PMHx significant for IVDU who recently (a day b4 admission to our ED) left AMA from [facility] after being hospitalized due to: MRSA bacteremia + septic arthritis L4-L5 w/surrounding cellulitis (pt used IV drugs again after LAMA from [facility]). Continue vancomycin IV (per ID at [facility] - complete vancomycin IV until 08/30/2025). Request for PICC line insertion (PICC line was removed upon leaving AMA). Blood cultures obtained -will follow results. ID consult. Evaluated by Neurosurgery at [facility] and no surgical interventions recommended; and follow-up as an outpatient). Disposition per [facility] SNF given the need for IV antibiotics but patient refused to go to [place]. TTE -no gross vegetations or significant valvular abnormalities (LVEF 55-60%). Case management/social service consult (per ED physician: The director of casework services on right now expects that placement will probably take some time and doesn't feel this a good case for placement from the ED ). 07/20/25: Patient did not endorse any concerns to me ID saw the patient and recommended continuous aggressive IV meds Can not place a PICC line in her until Tuesday given limited resources hence we will need to stay into next week Polysubstance abuse/IVDU: Cocaine and heroin. Recently started on methadone 5 mg p.o. daily by addiction medicine at [facility]. Suboxone was discontinued. Mood disorder: Major depressive disorder, anxiety, PTSD. Increase Zoloft 50 mg p.o. daily (psych team at [facility] recommended increase Zoloft dose but patient refused). Vraylar 1.5 mg p.o. daily was initiated; we will continue. She did not meet criteria for sectioned 12 or psychiatric admission. Psychiatric consulted- told them she would want to leave and continue medication at home which is not a possibility given we need to r/o bacteremia which will be next week before we can place a line for ongoing rx. P refusing meds intermittently per her wishes Chronic hep C infection. Viral load > 800,000. HIV negative. Per ID - outpatient management. Chronic forearms wounds; due to IVDU. Wound care consult. Iron deficiency anemia. Receive 1 unit PRBC on 06/30/2025. H&H. Continue ferrous sulfate. GERD - Omeprazole Code status: Full DVT prophylaxis: Lovenox Patient will need hospitalization for at least until early next week for MRSA bacteremia and septic arthritis treatment with IV antibiotics, repeat blood cultures and evaluation by ID Service and case management, psychiatry , wound care and we have limited resources and hence can't place a PICC line in her until next tuesday at the latest Quality Stroke Does the patient have a stroke diagnosis?: No VTE Prior VTE?: No VTE Risk Level:: Medical - moderate - high VTE Device Contraindication: Treatment Not Indicated VTE Drug Contraindication: N/A - Med Ordered
--- NOTE | 2025-07-20 09:11 | HE.PHANOTE ---
RE: vanco LEvel 07/20 came back at 20.3, changed dose to 1000mg Q12H to start at 1999 with predicted trough 15.5 mg/L, AUC of 533 mg/L. Next level to be drawn 07/21 @1800
[2025-07-20] MEDS: methADONE HCl 20 MG/2 ML ORAL.CONC 50 MG PO (09:42)
[2025-07-20] MEDS: Ferrous Sulfate 324 MG TABLET.DR PO ×2 (09:42→22:06)
[2025-07-20] MEDS: oxyCODONE HCl ER 10 MG TAB.ER.12H 20 MG PO ×2 (09:42→22:06)
--- NOTE | 2025-07-20 13:43 | MHC.RECOVRN ---
TW met with pt to offer ongoing support. On approach pt was sitting in bed, watching TV and appeared to be in good spirits. She denies w/d symptoms and feels her methadone dose is adequate. She also reports pain and anxiety are being managed with prn medication. She denies questions, comments, or concerns at this time. ACS team available as needed and will continue to follow
[2025-07-21 00:35] VITALS: RESP 16
[2025-07-21] MEDS: oxyCODONE HCl Immed Release 5 MG TABLET 10 MG PO (03:32)
[2025-07-21 03:38] VITALS: BP 138/89; PULSE 77; RESP 16; TEMP 36.8; O2SAT 91
[2025-07-21 07:35] LABS: MANUAL DIFF FLAG NO
[2025-07-21 07:41] LABS: Hematocrit 30.2 % (37.0-47.0); Hemoglobin 8.7 g/dl (12.0-16.0); Imm Gran Abs Auto 0.03 X10*3/uL (0.00-0.03); Imm Gran Pct Auto 0.4 % (0.0-0.4); Lymphocytes Absolute Auto 0.7 X10*3/uL (1.2-4.9); Mean Corpuscular HGB Conc 28.8 g/dl (31.0-35.0); Mean Corpuscular Hemoglobin 22.4 pg (27.0-33.0); Mean Corpuscular Volume 77.8 fL (80.0-98.0); NRBC Abs Auto 0.000 X10*3/uL (0.0-0.012); NRBC Pct Auto 0.0 /100WBC (0.0-0.2); Platelet Count 274 X10*3/uL (160-400); Red Blood Count 3.88 X10*6/uL (4.20-5.50); White Blood Count 7.3 X10*3/uL (4.8-10.8)
[2025-07-21 08:00] VITALS: BP 113/80; PULSE 76; RESP 14; TEMP 36.7; O2SAT 100
[2025-07-21 08:02] LABS: Alanine Aminotransferase 14 U/L (0-31); Albumin Level 4.1 g/dL (3.5-5.0); Alkaline Phosphatase 72 U/L (39-117); Anion Gap 14 (12-20); Aspartate Amino Transferase 27 U/L (5-31); Blood Urea Nitrogen 14 mg/dL (9-16); Calcium 9.0 mg/dL (8.4-10.2); Carbon Dioxide 22 mmol/L (22-29); Chloride 107 mmol/L (96-108); Creatinine Clr Calc Pharmacy 74.8; Estimated Glomerular Filt Rate > 60; Magnesium 2.0 mg/dL (1.6-2.6); Potassium 3.5 mmol/L (3.3-5.1); Sodium 139 mmol/L (135-145); Total Protein 8.3 g/dL (6.5-8.0)
[2025-07-21] MEDS: methADONE HCl 20 MG/2 ML ORAL.CONC 50 MG PO (08:52)
[2025-07-21] MEDS: Ferrous Sulfate 324 MG TABLET.DR PO ×2 (08:53→21:04)
[2025-07-21] MEDS: oxyCODONE HCl ER 10 MG TAB.ER.12H 20 MG PO ×2 (08:53→21:04)
[2025-07-21] MEDS: 0.9 % Sodium Chloride Flush 3 ML SYRINGE IVFLUSH ×4 (08:59→21:12)
[2025-07-21 15:12] VITALS: BP 90/59; PULSE 61; RESP 12; TEMP 36.6; O2SAT 95
--- NOTE | 2025-07-21 17:30 | P.PNIM_ITS ---
Subjective Subjective Date of Service: 07/21/25 Interval History: Tired, not sleeping well Reports chronic lower back and left hip pain No SOB or difficulty breathing Denies fever or chills Blood cultures negative after 48 hours Currently waiting on PICC line which will be placed on Tuesday Denies SI/HI Review of Systems Review of Systems: Yes all other systems are reviewed and are negative Physical Exam 2 Exam: Exam: General: AOx3, no acute distress Resp: CTA bilaterally CVS: S1, S2, RRR GI: +BS, NT, no distention Skin: Warm, dry Neuro: Cranial nerves II-XII grossly intact bilaterally. Motor grossly intact bilaterally Extremities: No edema. Bilateral forearms covered in foam dressing Psych: Appropriate affect Vital Signs: Vital Signs: Last Vital Signs Temp 98 F 07/21/25 15:12 Pulse 61 07/21/25 15:12 Resp 12 07/21/25 15:12 BP 90/59 L 07/21/25 15:12 Pulse Ox 95 07/21/25 15:12 O2 Del Method Room Air 07/21/25 15:12 BMI result Body Mass Index 23.4 Objective Data Active Medications Acetaminophen (Acetaminophen 325 Mg Tablet) 975 mg PO Q6H PRN PRN Reason: Pain, Mild 1-3,fever,headache Calcium Carbonate (Calcium Carbonate 750 Mg Tab.Chew) 750 mg PO Q4H PRN PRN Reason: Heartburn Cariprazine (Cariprazine Hcl 1.5 Mg Capsule) 1.5 mg PO DAILY [facility] Stop: 07/31/25 09:00 Last Admin: 07/21/25 08:54 Dose: 1.5 mg Documented By: SARAH Docusate Sodium (Docusate Sodium 100 Mg Capsule) 100 mg PO BID PRN PRN Reason: Constipation Enoxaparin Sodium (Enoxaparin Sodium 40 Mg/0.4 Ml Syringe) 40 mg SUBCUT Q24H [facility] Last Admin: 07/21/25 08:52 Dose: 40 mg Documented By: SARAH Ferrous Sulfate (Ferrous Sulfate 324 Mg Tablet.) 324 mg PO BID [facility] Last Admin: 07/21/25 08:53 Dose: 324 mg Documented By: SARAH Gabapentin (Gabapentin 100 Mg Capsule) 100 mg PO TID [facility] Last Admin: 07/21/25 14:11 Dose: Not Given Documented By: SARAH Non-Admin Reason: Patient Refused Hydroxyzine HCl (Hydroxyzine Hcl 50 Mg Tablet) 50 mg PO Q6H PRN PRN Reason: Anxiety Vancomycin HCl 1,000 mg/ (Sodium Chloride) 270 mls @ 270 mls/hr IV Q12H [facility] Last Infusion: 07/21/25 09:53 Dose: Infused Documented By: SARAH Lorazepam (Lorazepam 1 Mg Tablet) 1 mg PO Q6H PRN PRN Reason: Anxiety, mild Last Admin: 07/20/25 23:50 Dose: 1 mg Documented By: ILIR Magnesium Hydroxide (Milk Of Magnesia 30 Ml Oral.Susp) 30 ml PO DAILY PRN PRN Reason: Constipation Methadone HCl (Methadone Hcl 20 Mg/2 Ml Oral.Conc) 50 mg PO DAILY [facility] Last Admin: 07/21/25 08:52 Dose: 50 mg Documented By: SARAH Co-signed By: RANJITH Midodrine (Midodrine Hcl 2.5 Mg Tablet) 2.5 mg PO TID@0900,1300,1700 PRN PRN Reason: SBP <90 Oxycodone HCl (Oxycodone Hcl Er 10 Mg Tab.Er.12h) 20 mg PO BID [facility] Last Admin: 07/21/25 08:53 Dose: 20 mg Documented By: SARAH Oxycodone HCl (Oxycodone Hcl Immed Release 5 Mg Tablet) 10 mg PO Q6H PRN PRN Reason: Pain, Moderate(Pain Scale 4-6) Last Admin: 07/21/25 03:32 Dose: 10 mg Documented By: ILIR Pharmacy Consult (Consult Rx Vancomycin Dosing) 1 each MISCELLANE DAILY PRN PRN Reason: Consult order Sertraline HCl (Sertraline Hcl 50 Mg Tablet) 50 mg PO DAILY [facility] Last Admin: 07/21/25 09:10 Dose: Not Given Documented By: SARAH Non-Admin Reason: Patient Refused Sodium Chloride (0.9 % Sodium Chloride Flush 3 Ml Syringe) 3 ml IVFLUSH QSHIFT [facility] Last Admin: 07/21/25 08:59 Dose: 3 ml Documented By: SARAH Zolpidem Tartrate (Zolpidem Tartrate 5 Mg Tablet) 10 mg PO BEDTIME PRN PRN Reason: Insomnia Last Admin: 07/20/25 22:06 Dose: 10 mg Documented By: BRENDAN Labs 07/21/25 06:36 07/21/25 06:36 Labs: Laboratory Results - last 24 hr 07/21/25 06:36 MCV 77.8 L MCH 22.4 L MCHC 28.8 L RDW 28.4 H Plt Count 274 MPV 9.8 Immature Gran % (Auto) 0.4 Neut % (Auto) 83.6 H Lymph % (Auto) 10.1 L [place] % (Auto) 4.4 Eos % (Auto) 1.0 Baso % (Auto) 0.5 Lymph # (Auto) 0.7 L [place] # (Auto) 0.3 Eos # (Auto) 0.1 Baso # (Auto) 0.0 Abs Immat Gran (auto) 0.03 Absolute Neuts (auto) 6.1 Absolute Nucleated RBC 0.000 Nucleated RBC % (auto) 0.0 Anion Gap 14 Estim Creat Clear Calc 74.8 Estimated GFR > 60 Random Glucose 76 Calcium 9.0 D Magnesium 2.0 Total Bilirubin 0.3 AST 27 ALT 14 Alkaline Phosphatase 72 Total Protein 8.3 H Albumin 4.1 Assessment and Plan (1) MRSA bacteremia: Status: Acute (2) Septic arthritis of lumbar spine: Status: Acute Plan Kathy Ballard is a 50 y/owoman with a PMHx significant for IVDU who recently (a day b4 admission to our ED) left [place] from [facility] after being hospitalized due to: MRSA bacteremia + septic arthritis L4-L5 sacroileal infection w/surrounding cellulitis Secondary to IVDU; pt used IV drugs again after leaving [place] on 07/18 from [facility] Evaluated by Neurosurgery at [facility] and no surgical interventions recommended; should follow-up as an outpatient Disposition per [facility] SNF given the need for IV antibiotics but patient refused to go to [place] TTE at [facility]: no gross vegetations or significant valvular abnormalities (LVEF 55-60%) Continue vancomycin IV through 08/30/2025, likely doxy after that PICC line to be placed on Tuesday Blood cultures here negative after 48h ID following Polysubstance abuse/IVDU Cocaine and heroin Continue 50 mg p.o. daily; Suboxone was discontinued at [facility] Mood disorder: Major depressive disorder, anxiety, PTSD Zoloft 50 mg p.o. daily, Vraylar 1.5 mg p.o. daily She did not meet criteria for sectioned 12 or psychiatric admission at [facility] Psychiatric consulted, told them she would want to leave and continue medication at home which is not a possibility Intermittently refusing meds per her wishes Chronic hep C infection Viral load > 800,000, HIV negative Per ID - outpatient management Chronic forearms wounds Due to IVDU/xylazine Wound care consult Iron deficiency anemia. Receive 1 unit PRBC on 06/30/2025 at [facility] H&H stable today Continue ferrous sulfate. GERD - Continue Omeprazole Code status: Full DVT prophylaxis: Lovenox Patient will need continued hospitalization while awaiting PICC line placement on Tuesday for long-term antibiotic use. Pt will also need placement to rehab while has PICC line in place. Quality Stroke Does the patient have a stroke diagnosis?: No VTE Prior VTE?: No VTE Risk Level:: Medical - moderate - high VTE Device Contraindication: Treatment Not Indicated VTE Drug Contraindication: N/A - Med Ordered
[2025-07-21 20:00] VITALS: BP 112/70; PULSE 75; RESP 18; TEMP 36.4; O2SAT 98
[2025-07-21 22:48] VITALS: PULSE 75
[2025-07-22] VITALS (9 sets, daily range): BP systolic 110–148; BP diastolic 66–96; PULSE 76–678; RESP 10–20; TEMP 36.2–37.1; O2SAT 97–100
[2025-07-22 06:12] LABS: MANUAL DIFF FLAG NO
[2025-07-22 06:37] LABS: Alanine Aminotransferase 10 U/L (0-31); Albumin Level 3.2 g/dL (3.5-5.0); Alkaline Phosphatase 63 U/L (39-117); Anion Gap 13 (12-20); Aspartate Amino Transferase 24 U/L (5-31); Blood Urea Nitrogen 11 mg/dL (9-16); Calcium 8.6 mg/dL (8.4-10.2); Carbon Dioxide 20 mmol/L (22-29); Chloride 110 mmol/L (96-108); Creatinine Clr Calc Pharmacy 64.9; Estimated Glomerular Filt Rate > 60; Magnesium 2.2 mg/dL (1.6-2.6); Potassium 4.1 mmol/L (3.3-5.1); Sodium 139 mmol/L (135-145); Total Protein 7.1 g/dL (6.5-8.0)
[2025-07-22] MEDS: Ferrous Sulfate 324 MG TABLET.DR PO ×2 (07:11→19:28)
[2025-07-22] MEDS: oxyCODONE HCl ER 10 MG TAB.ER.12H 20 MG PO ×2 (07:11→19:28)
[2025-07-22] MEDS: methADONE HCl 20 MG/2 ML ORAL.CONC 50 MG PO (07:11)
[2025-07-22] MEDS: oxyCODONE HCl Immed Release 5 MG TABLET 10 MG PO (08:59)
--- NOTE | 2025-07-22 12:35 | P.PNID_ITS ---
Subjective Subjective Date of Service: 07/22/25 Critical Care Time (minutes): 15 Comment: she feels better no complaints Objective Data Labs 07/21/25 06:36 07/22/25 05:46 Labs: Laboratory Results - last 24 hr 07/21/25 07/22/25 17:46 05:46 Sodium 139 Potassium 4.1 Chloride 110 H Carbon Dioxide 20 L Anion Gap 13 BUN 11 Creatinine 0.76 Estim Creat Clear Calc 64.9 Estimated GFR > 60 Random Glucose 89 Calcium 8.6 Magnesium 2.2 Total Bilirubin 0.2 AST 24 ALT 10 Alkaline Phosphatase 63 Total Protein 7.1 Albumin 3.2 L Random Vancomycin 11.3 L Microbiology Microbiology Results: Microbiology 07/17/25 15:49 Blood - Venous Blood Culture - Preliminary No growth after 48 hours. 07/17/25 15:49 Blood - Venous Blood Culture - Preliminary No growth after 48 hours. Physical Exam 2 Vital Signs: Vital Signs: Last Vital Signs Temp 98.5 F 07/22/25 07:44 Pulse 678 H 07/22/25 12:10 Resp 12 07/22/25 12:10 BP 133/82 07/22/25 12:10 Pulse Ox 100 07/22/25 12:10 O2 Del Method Room Air 07/22/25 12:10 O2 Flow Rate 2 07/22/25 12:00 BMI result Body Mass Index 23.4 Const: General: cooperative HEENT: Head: Yes normal to inspection Face and sinus: Yes normal facial exam Mouth: Normal oral and palatal mucosa present Teeth and gingiva: d entition normal Eyes: General: appearance normal, both eyes and all related structures P upils: Equal, round and reactive pupils present Resp: Effort & Inspection: normal respiratory effort Cardio: Rate: regular rate Rhythm: regular rhythm GI: Palpation (GI): Soft to palpation and nontender : General: Yes no CVA tenderness Back/Spine/Pelvis: Back: no CVA tenderness Skin: Other: chronic wounds arms General skin exam: no rashes or lesions noted Neuro: General: moves all extremities Cranial nerves: Yes Equal, round and reactive pupils present Extrem: General: Yes normal to inspection Psych: Appearance: grossly normal Assessment and Plan Assessment and plan (1) Opioid use disorder: Problem details: Septic arthritis lumbar spine Blood cultures negative and pain improving Continue Vancomycin through 08/30 and then po Doxycycline month or two if sensitive. Status: Acute (2) MRSA bacteremia: Status: Acute (3) Septic arthritis of lumbar spine: Status: Acute Time Spent With Patient Time: Total time managing care of this patient today ____ minutes.
--- NOTE | 2025-07-22 13:45 | HO.WOUND ---
Wound Consult: Follow up 50 yr old female admitted to [facility] on 07/18/25 - See progress notes and H&P for detailed history. Wound consult placed for bilateral arm wounds. Patient agreeable to assessment and photo documentation. Patient with history of IVDU, Patient reports injection sites to arms, last injected two days prior to admission into right forearm. Patient reports she typically cleans her wounds and keeps them covered with dry gauze, she reports minimal drainage. She reports using clean needles and alternating sites. Plan for line placement and 6weeks antibiotics at short term rehab. Right forearm 07/18/25 Right forearm 07/19/25 Right forearm 07/22/25 Left forearm 07/18/25 Left forearm 07/19/25 Left forearm 07/22/25 Etiology: Wounds from injection sites Wound Bed: Left forearm dry red/brown scabbing partially lifting revealing full thickness wound, right forearm moist red/yellow with skin bridges in between Drainage / Odor: scant serosanguineous to right forearm Edges: ? irregular, defined Karley wound: ? No Induration, Fluctuance or Warmth noted Pain: none Goals of Treatment: ? switch to medihoney to promote an optimal moist wound healing environment including reducing edema, lowering wound pH, debriding slough and mild antimicrobial effect, durafiber for drainage absorption Recommendations: Bilateral forearms: cleanse with saline, pat dry, apply thin layer of medihoney to wound bed, cover with durafiber ag and foam, change every other day and PRN. Medihoney tube left at bedside, medihoney can be obtained in wound care office. Re-consult wound care Nurse for wound deterioration or wound changes.
--- NOTE | 2025-07-22 14:22 | MHC.RECOVRN ---
Pt potentially in need of new guest dosing form to be obtained from [facility] if she doesn't end up leaving till tomorrow. ACS team & CM following.
[2025-07-22 15:23] LABS: Hematocrit 32.5 % (37.0-47.0); Hemoglobin 9.0 g/dl (12.0-16.0); Imm Gran Abs Auto 0.02 X10*3/uL (0.00-0.03); Imm Gran Pct Auto 0.6 % (0.0-0.4); Lymphocytes Absolute Auto 0.9 X10*3/uL (1.2-4.9); Mean Corpuscular HGB Conc 27.7 g/dl (31.0-35.0); Mean Corpuscular Hemoglobin 23.0 pg (27.0-33.0); Mean Corpuscular Volume 83.1 fL (80.0-98.0); NRBC Abs Auto 0.000 X10*3/uL (0.0-0.012); NRBC Pct Auto 0.0 /100WBC (0.0-0.2); Platelet Count 256 X10*3/uL (160-400); Red Blood Count 3.91 X10*6/uL (4.20-5.50); White Blood Count 3.4 X10*3/uL (4.8-10.8)
--- NOTE | 2025-07-22 15:24 | MHC.CM.PN ---
DP: PT HAS BEEN MEDICALLY CLEARED FOR DC TO STR AT [facility]. BLS TRANSPORT HAS BEEN BOOKED FOR 7 PM VIA [facility]. RN/PROVIDER AWARE. CONFIRMED WITH [facility] AND [facility] HAS CONFIRMED METHADONE DOSING IS READY. LAST DOSE LETTER SENT . FINAL IMM ISSUED.
--- NOTE | 2025-07-22 16:16 | PM.DS ---
DS: Providers Provider Date of Service: 07/22/25 Date of admission: 07/18/25 00:06 Date of discharge: 07/22/25 Primary care physician: Oniel Sanches MD Consults: 07/17/25 15:46 Consult to Case Management Stat Comment: after cleared by [facility]IS may need help with SNF enrique 07/18/25 00:46 Consult to Psychiatry Routine Consulting Provider: [facility] Reason for consultation: IVDU, anxiety Has provider been notified: No 07/18/25 00:58 Consult to Infectious Diseases Routine Consulting Provider: [facility] Reason for consultation: MRSA bacteremia Has provider been notified: No 07/18/25 01:20 Consult to Wound Care Routine Consulting Provider: [facility]ound [facility] Reason for consultation: Bilateral forearm wounds 07/18/25 08:09 Addiction Medicine Provider Routine Consulting Provider: Addiction Covering Reason for consultation: ALDAIR , wanting to leave ama DS: Diagnosis Discharge Diagnosis (1) Opioid use disorder: Status: Acute (2) MRSA bacteremia: Status: Acute (3) Septic arthritis of lumbar spine: Status: Acute DS: Summary Hospital Course Hospital Course: From admission HPI: Date of Service: 07/18/25 Attending physician on admission: Alba Zimmerman Chief Complaint: Anxiety Kathy Ballard is a 50 years old woman with past medical history significant for IVDU (active)/polysubstance abuse, chronic hepatitis-C, anxiety, PTSD and depression presents to the emergency department complaining of feeling anxious and came to the ED looking for evaluation by Psychiatry. She denied active suicidal ideation. She left AMA from [facility] yesterday. She has been treated for septic arthritis L4-L5 MRSA bacteremia (per MRI). She was initially treated with vancomycin and Zosyn. After cultures came back positive for MRSA bacteremia she was treated with vancomycin alone. She was seen by ID and recommended IV vancomycin until 08/30/2025. Before leaving AMA her PICC line was removed. The plan was to discharge her to a SNF so she can completed the IV antibiotic therapy but she refused this. She also was found to have severe iron deficiency anemia; hemoglobin was 6.1 a received 1 unit of PRBC. Her repeat hemoglobin was 6.7 and another unit was ordereg but patient left AMA without receiving it. Patient seems to be very upset because she was not evaluated by psychiatry service, however, discharge summary, the patient was seen by Psychiatry and recommended to increase Zoloft but patient declined this recommendation. Also vraylar 1.5 mg p.o. daily for psychotic symptoms, depression regimen of mentation. At that time she did not meet criteria for sectioned 12 or involuntary psychiatric admission per Psychiatry. She also was given Ambien X1 only after the initiation of methadone. The patient was also seen by addiction medicine and methadone was initiated at 50 mg p.o. daily and Suboxone was discontinued. Unfortunately, after leaving AMA she used IV drugs again: Cocaine and heroin. ED tx: Ativan 1 mg p.o., Tums, vancomycin 1250 mg IV, oxycodone 50 mg p.o. Hospital course Pt was admitted to the hospital for L4-5 septic arthritis with MRSA bacteremia in the setting of IVDU that required IV antibiotics. Pt had been recently diagnosed at [facility] via MRI and had left AMA the day beforr presentation to [facility]. Pt was seen and evaluated by Infectious Disease who recommended IV vancomycin for a total of 6 weeks with end date of 08/30/2025 and then doxycycline 100 mg p.o. b.i.d. for 1-2 months after that. Blood cultures here were negative after 48 hours and pt had Amos catheter placed on 07/22 for outpatient IV antibiotics. Pt was accepted at [facility] and will be discharged there for short-term rehab and administration of IV antibiotics. Expected length of stay is less than 30 days. Patient's labs were overall unremarkable. Pt was started on iron supplementation; remained anemic but H&H stable during hospital stay. 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 She was seen and evaluated by wound care with recommendations was dipped below. At [facility] pt was seen and evaluated by psychiatry for increasing depression without suicidal ideation and her Zoloft was increased to 50 mg daily and she was also started on Vraylar 1.5 mg daily. Additional details concerning hospital stay as indicated below. MRSA bacteremia + septic arthritis L4-L5 sacroileal infection w/surrounding cellulitis Secondary to IVDU; pt used IV drugs again after leaving [place] on 07/18 from [facility] Evaluated by Neurosurgery at [facility] and no surgical interventions recommended; should follow-up as an outpatient Disposition per [facility] given the need for IV antibiotics but patient refused to go to [place] TTE at [facility]: no gross vegetations or significant valvular abnormalities (LVEF 55-60%) Continue vancomycin IV through 08/30/2025, then doxycycline 100mg bid for 1-2 months Amos placed on 07/22 Blood cultures here negative after 48h ID following Polysubstance abuse/IVDU Cocaine and heroin Continue methadone 50 mg p.o. daily; Suboxone was discontinued at [facility] Mood disorder: Major depressive disorder, anxiety, PTSD Continue Zoloft 50 mg p.o. daily, Vraylar 1.5 mg p.o. 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 Receive 2 units PRBC on 06/30/2025 at [facility] H&H stable during hospital stay Continue ferrous sulfate. GERD Continue Omeprazole Time Attestation Discharge Coordination Time (in mins): 37 Quality: Safe Use of Opioids Does Pt have an Active Cancer Diagnosis on the Problem List?: No Quality: Stroke Does the patient have a stroke diagnosis?: No Physical Exam Exam: Exam: General: AOx3, no acute distress Resp: CTA bilaterally CVS: S1, S2, RRR GI: +BS, NT, no distention Back: Non tender to palpation Skin: Warm, dry Neuro: Cranial nerves II-XII grossly intact bilaterally. Motor grossly intact bilaterally Extremities: No edema. Bilateral forearms covered in foam dressing. See wound care notes for pictures Psych: Appropriate affect Vital Signs: Vital Signs: Last Vital Signs Temp 97.4 F 07/22/25 15:59 Pulse 115 H 07/22/25 15:59 Resp 18 07/22/25 15:59 BP 148/84 H 07/22/25 15:59 Pulse Ox 98 07/22/25 15:59 O2 Del Method Room Air 07/22/25 15:59 O2 Flow Rate 2 07/22/25 12:00 BMI result Body Mass Index 23.4 DS: Data Data Completed and Pending Labs on day of discharge: Laboratory Results - last 24 hr 07/21/25 07/22/25 17:46 05:46 WBC 3.4 L RBC 3.91 L Hgb 9.0 L Hct 32.5 L MCV 83.1 D MCH 23.0 L MCHC 27.7 L RDW 30.2 H Plt Count 256 MPV 10.4 Immature Gran % (Auto) 0.6 H Neut % (Auto) 58.0 Lymph % (Auto) 25.9 [place] % (Auto) 10.2 Eos % (Auto) 3.8 Baso % (Auto) 1.5 Lymph # (Auto) 0.9 L [place] # (Auto) 0.4 Eos # (Auto) 0.1 Baso # (Auto) 0.1 Abs Immat Gran (auto) 0.02 Absolute Neuts (auto) 2.0 Absolute Nucleated RBC 0.000 Nucleated RBC % (auto) 0.0 Sodium 139 Potassium 4.1 Chloride 110 H Carbon Dioxide 20 L Anion Gap 13 BUN 11 Creatinine 0.76 Estim Creat Clear Calc 64.9 Estimated GFR > 60 Random Glucose 89 Calcium 8.6 Magnesium 2.2 Total Bilirubin 0.2 AST 24 ALT 10 Alkaline Phosphatase 63 Total Protein 7.1 Albumin 3.2 L Random Vancomycin 11.3 L Preliminary micro results at discharge 07/17/25 15:49 Blood Culture - Preliminary Blood - Venous No growth after 48 hours. 07/17/25 15:49 Blood Culture - Preliminary Blood - Venous No growth after 48 hours. Discharge Plan Discharge Anticipated Discharge Date/Time: 07/22/25 15:27 Patient Disposition: Xfer Inpatient Rehab Fac Discharge Diagnosis: Acute lumbar septic arthritis with MRSA bacteremia Referrals: [facility] [Outside] - 1 Week Referral Note: TRANSFER FOR IV RX Po,Oniel Garza MD [Primary Care Provider, Internal Medicine] - 1 Week Discharge Medications: New hydroxyzine HCl 50 mg Tablet 50 mg PO Q6H PRN (Reason: Anxiety) Qty: 30 0RF ferrous sulfate 324 mg (65 mg iron) Tablet,Delayed Release (Dr/Ec) 324 mg PO BID Qty: 90 0RF Vraylar 1.5 mg Capsule 1.5 mg PO DAILY Qty: 30 0RF oxycodone [OxyContin] 10 mg Tablet,Oral Only,Ext.Rel.12 Hr 10 mg PO TID Qty: 10 0RF Rx Instructions: Partial Fill upon patient request. Take one up to three times a day for severe pain Continued sertraline [Zoloft] 25 mg Tablet 25 mg PO DAILY gabapentin 100 mg Capsule 100 mg PO TID buprenorphine-naloxone 2-0.5 mg Tablet, Sublingual 2 tab SUBLINGUAL DAILY Discharge Orders: Discharge Order (Routine); Ordered 07/22/25 Ordered By: Tan Marte Activity on Discharge: As tolerated Stand Alone Forms: Patient Portal Discharge page Print Language: Jordanian Care Plan Goals: See below Health Concerns: Lumbar septic arthritis MRSA bacteremia IV drug use Depression/anxiety Plan of Treatment: You were admitted to the hospital for lumbar septic arthritis with MRSA blood infection secondary to IV drug use. You had previously been admitted and diagnosed at [facility] where you underwent MRI and echocardiogram and were started on IV antibiotics. You then left [place] and presented to [facility] the following day. You were seen and evaluated Infectious Disease who recommended IV vancomycin for 6 weeks with end date of 08/30 to then be followed by doxycycline for an additional 1-2 months. You had a central line placed for administration of outpatient IV antibiotics, and arrangements were made to discharge you to short-term rehab at [facility]. -- you will be taking IV vancomycin for a total of 6 weeks with end date on 08/30. Doses will be administered at short-term rehab -- follow up with Infectious Disease for continuing antibiotic use for an additional 1-2 months on oral doxycycline after vancomycin course completed -- for iron-deficiency anemia continue iron supplementation. You required a transfusion of 2 units at [facility], but your blood levels were stable at [facility]. Follow up with PCP outpatient for monitoring of labs -- for anxiety/depression, your Zoloft was increased to 50 mg daily and do has been started on Vraylar 1.5 mg daily -- continue all other home medications Assessment: See discharge becky
--- NOTE | 2025-07-22 18:37 | HE.PHANOTE ---
Re Vanc Random back at 18.3 but renal function slightly decreased. AUC calculated supratherapeutic. Will reduce to 1g q12h and recheck on 07/24 @0600
[2025-07-22] MEDS: 0.9 % Sodium Chloride Flush 3 ML SYRINGE IVFLUSH (21:54)
== END 2025-07-22 22:46 | DRG 552 ==
LOC: HO.ED 23:45 → HO.EDOVER 07-18 00:18 → HO.S3 07-18 00:44
PROVIDERS: Emergency Medicine; Physician Assistant Medical; Radiology Diagnostic Radiology; Student in an Organized Health Care Education/Training Program; Admitting Provider Internal Medicine; Emergency Provider Emergency Medicine; PCP Internal Medicine; Visit Provider Student in an Organized Health Care Education/Training Program
PROC: 0JH63XZ Insertion of Tunneled Vascular Access Device into Chest Subcutaneous Tissue and Fascia, Percutaneous Approach (ICD-10-PCS; principal; 2025-07-22 11:30)
DX: M46.56 Other infective spondylopathies, lumbar region (principal); F11.20 Opioid dependence, uncomplicated; R78.81 Bacteremia; L03.312 Cellulitis of back [any part except buttock and flank]; T65.8 Toxic effect of other specified substances; E03.9 Hypothyroidism, unspecified; L98.A22 Non-pressure chronic ulcer of left forearm; L98.A21 Non-pressure chronic ulcer of right forearm; F19.10 Other psychoactive substance abuse, uncomplicated; F32.9 Major depressive disorder, single episode, unspecified; B95.62 Methicillin resistant Staphylococcus aureus infection as the cause of diseases classified elsewhere; F41.9 Anxiety disorder, unspecified; F43.10 Post-traumatic stress disorder, unspecified; B18.2 Chronic viral hepatitis C; D50.9 Iron deficiency anemia, unspecified; Z79.899 Other long term (current) drug therapy
CPT/HCPCS: 36415; 36558; 80053; 80143; 80179; 80202; 80307; 81001; 82565; 83605; 83690; 83735; 85025; 85027; 85652; 86140; 87040; 99285; C1751; C1769; J1642; J1644; J1650; J2003; J3010; J3374; J7120; S9485

== ENCOUNTER 2025-07-18 00:06 | Outpatient (BNV) | payer OTHER, SELFPAY | END 2025-07-22 10:58 | PROVIDERS: Admitting Provider Internal Medicine; Emergency Provider Emergency Medicine; PCP Internal Medicine; Visit Provider Radiology Diagnostic Radiology | DX: A41.9 Sepsis, unspecified organism (principal); B95.62 Methicillin resistant Staphylococcus aureus infection as the cause of diseases classified elsewhere | CPT/HCPCS: 36558; 76937; 77001 ==

== ENCOUNTER → 2025-07-18 00:06 | Outpatient (BNV) | payer OTHER, SELFPAY | PROVIDERS: Admitting Provider Internal Medicine; Emergency Provider Emergency Medicine; PCP Internal Medicine; Visit Provider Internal Medicine | DX: R78.81 Bacteremia (principal); B95.62 Methicillin resistant Staphylococcus aureus infection as the cause of diseases classified elsewhere; M46.56 Other infective spondylopathies, lumbar region; F33.2 Major depressive disorder, recurrent severe without psychotic features; F19.90 Other psychoactive substance use, unspecified, uncomplicated; F14.10 Cocaine abuse, uncomplicated; F11.90 Opioid use, unspecified, uncomplicated | CPT/HCPCS: 99222 ==

== ENCOUNTER → 2025-07-18 00:06 | Outpatient (BNV) | payer OTHER, SELFPAY | PROVIDERS: Admitting Provider Internal Medicine; Emergency Provider Emergency Medicine; PCP Internal Medicine; Visit Provider Internal Medicine | DX: M00.08 Staphylococcal arthritis, vertebrae (principal); A41.02 Sepsis due to Methicillin resistant Staphylococcus aureus; B95.62 Methicillin resistant Staphylococcus aureus infection as the cause of diseases classified elsewhere; F19.20 Other psychoactive substance dependence, uncomplicated | CPT/HCPCS: 99232; 99233; 99239 ==

== ENCOUNTER → 2025-07-18 00:06 | Outpatient (BNV) | payer OTHER, SELFPAY | PROVIDERS: Admitting Provider Internal Medicine; Emergency Provider Emergency Medicine; PCP Internal Medicine; Visit Provider Nurse Practitioner Family | DX: F33.2 Major depressive disorder, recurrent severe without psychotic features (principal); F41.1 Generalized anxiety disorder; F43.11 Post-traumatic stress disorder, acute | CPT/HCPCS: 99222 ==

== ENCOUNTER 2025-08-16 10:52 | Outpatient (AMB) | payer OTHER, SELFPAY ==
--- NOTE | 2025-08-16 10:52 | A.OFFVIS_ITS ---
Vital Signs 08/16/25 11:07 Height 5 ft 1 in Weight 130 lb BMI 24.6 Pulse 80 Pulse Source Pulse Oximeter Temp 98.5 F Temp Source Oral Pulse Oximetry (%) 80 L Oxygen Delivery Method Room Air Intake Visit Reasons: ID C reff/list/MRSA bacteremia Allergies diphenhydramine (From BENADRYL) Allergy (Severe, Verified 08/23/25 11:57) RASH trazodone (TRAZODONE) Adverse Reaction (Severe, Verified 08/23/25 11:57) DYSTONIC risperidone (Risperdal) Adverse Reaction (Unknown, Verified 08/23/25 11:57) Dystonia HPI HPI [place] [facility] reff/list/MRSA bacteremia: Details: She has been doing well She is finishing Vancomycin course MRSA bacteremia and SA lumbar spine She has no fever or chills and is ambulating with some stiffness but no focal problems [facility] Medical History Opioid use disorder Cocaine use disorder PTSD (post-traumatic stress disorder) MDD (major depressive disorder), recurrent episode, severe Anxiety Generalized anxiety disorder Anxiety and depression Anemia Panic attacks Peptic ulcer disease Polysubstance abuse Migraine Insomnia Hypothyroid GERD (gastroesophageal reflux disease) Surgical History History of section Family History Father COPD (chronic obstructive pulmonary disease) Lung cancer Mother No problems noted. Maternal Grandmother Esophageal cancer Maternal Grandfather Pancreatic cancer Paternal Grandmother Esophageal cancer Stomach cancer Maternal Aunt Breast cancer Social History Household Members: Family Household Members Other:: daughter Housing: House Do you presently have visiting nurse or other home services: No Alcohol intake: unknown Comment: patient on 15 minute safety checks Patient Tobacco Use Status: Never used Tobacco Tobacco use type: Cigarette e-Cigarette/Vaping Use: Never Used Second Hand Smoke Exposure: No Substance Use Type: Crack/Cocaine, Heroin and Opiates service: No Current occupational status: employed Sexual orientation: Straight/Heterosexual Cognitive needs: No Hearing needs: No Vision needs: No Review of Systems Const All systems reviewed & are unremarkable except as noted in HPI and below Physical Exam Vital Signs: Last Vital Signs Temp 98.5 F 08/16/25 11:07 Pulse 80 08/16/25 11:07 Pulse Ox 80 L 08/16/25 11:07 Oxygen Delivery Method Room Air 08/16/25 11:07 BMI result Body Mass Index 24.6 Const General: cooperative Orientation/consciousness: patient oriented x3 HEENT Head: Yes normal to inspection Mouth: Normal oral and palatal mucosa present Eyes General: appearance normal, both eyes and all related structures Pupils: Equal, round and reactive pupils present Resp Effort & Inspection: normal respiratory effort Cardio Rate: regular rate Rhythm: regular rhythm GI Palpation (GI): Soft to palpation and nontender General: Yes no CVA tenderness Back/Spine/Pelvis Back: no CVA tenderness Skin General skin exam: no rashes or lesions noted Neuro General: patient oriented x3 Cranial nerves: Yes CN's II-XII intact bilaterally and Yes Equal, round and reactive pupils present Extrem General: Yes normal to inspection Psych Appearance: grossly normal Assessment & Plan Assessment & Plan (1) MRSA bacteremia: Comment: She has cleared bacteremia Code(s): R78.81 - Bacteremia; B95.62 - Methicillin resistant Staphylococcus aureus infection as the cause of diseases classified elsewhere Category: Medical Plan: Finish Vancomycin One month Bactrim Plan See prn need Orders: Orders IR cvc remove any age 1208/16/25 R78.81 - Bacteremia, B95.62 - Methicillin resistant Staphylococcus aureus infection as the cause of diseases classified elsewhere Medications: New doxycycline hyclate 100 mg PO BID 60 caps 0RF 30 days Coding Level of Care Code Est Pt Level 3 (95143) Diagnoses MRSA bacteremia R78.81; B95.62
[2025-08-16 11:07] VITALS: PULSE 80; TEMP 36.9; O2SAT 80; BMI 24.6
--- OUTSIDE RECORDS SUMMARY | 2025-08-16 15:23 | XMS_ITS | Clinical Summary ---
Author Organization [facility] Address [address] [place] [address] Care Team Providers Care Cafe Site Attendant Name Role Phone Oniel Sanches Primary Care Provider [phone] Allergies Active Allergy Reactions Criticality Noted Date Comments Diphenhydramine Hcl Unknown 08/02/2025 Risperidone Unknown 08/02/2025 Trazodone Unknown 08/02/2025 Medications * This document contains information received from the source organization and may not represent a complete record from that organization. No known medications Encounters Date Type Department Care Team Description 08/02/2025 8:23 PM EST - 08/02/2025 9:39 PM EST Emergency [facility] Emergency Department [address] [place] [address] Gopal Foster MD Vaginal bleeding (Primary Dx) Discharge Disposition: Home or Self Care () 08/02/2025 3:01 PM EST - 08/02/2025 5:07 PM EST Emergency [facility] Emergency Department [address] [place] [id number] Arielle Sánchze MD Vaginal bleeding (Primary Dx) Discharge Disposition: Left Without Being Seen (07) from Last 3 Months Social History Tobacco Use Types Packs/Day Years Used Date Smoking Tobacco: Never Assessed Comments Unknown Sex and Gender Information Value Date Recorded Sex Assigned at Female 08/02/2025 3:34 PM EST Legal Sex Female 6:58 PM EDT Gender Identity Not on file Sexual Orientation Not on file Last Filed Vital Signs Vital Sign Reading Time Taken Comments Blood Pressure 144/83 08/02/2025 9:37 PM EST Pulse 75 08/02/2025 9:37 PM EST Temperature 36.4 C (97.5 F) 08/02/2025 5:12 PM EST Respiratory Rate 16 08/02/2025 9:37 PM EST Oxygen Saturation 99% 08/02/2025 9:37 PM EST Inhaled Oxygen Concentration - - Weight - - Height - - Body Mass Index - - Plan of Treatment Health Maintenance Due Date Last Done Comments Cervical Cancer Screening 1977 Cologuard 1977 Colon Cancer Screening 1977 Colonoscopy 1977 FOBT / Fit Test 1977 HIV Screening 1977 HPV and Pap Smear 1977 Pap Smear 1977 Sigmoidoscopy 1977 Medicare AWV 1978 Hepatitis B Vaccines (1 of 3 - 19+ 3-dose series) 1996 DTaP,Tdap,and Td Vaccines (1 - Tdap) 1999 Mammogram 2017 Alcohol/Substance Use Screening 09/05/2024 Depression Screening and Follow-Up 09/05/2024 Social Drivers of Health Ximena ual Screening 09/05/2024 Influenza Vaccine (#1) 2025 COVID-19 Vaccine ( - 2024-2 6 season) 2025 Hepatitis C Screening Completed 07/04/2025 Pneumococcal Vaccine: Pediat nallely (0-5 Years) and At-Risk Patients (6-50 Years) Aged Out No longer eligible b ased on patient's age to complete this topic Procedures * Due to [place] afterBOT law, this organization might not be sharing negative HIV tests. Procedure Name Priority Date/Time Associated Diagnosis Comments SMEAR REVIEW STAT 08/02/2025 2:42 PM EST HCG QUALITATIVE W/REFLEX TO QUANTITATIVE STAT Add-on 08/02/2025 2:42 PM EST BASIC METABOLIC PANEL STAT 08/02/2025 2:42 PM EST CBC AUTO DIFFERENTIAL STAT 08/02/2025 2:42 PM EST from Last 3 Months Results * Due to [place] afterBOT law, this organization might not be sharing negative HIV tests. * (ABNORMAL) Smear Review (08/02/2025 2:42 PM EST) Platelet Estimate Adequate Adequate 08/02/2025 3:40 PM EST [facility] RBC Morphology Present(A) Normal, No clinically significant RBC morphology present (ICSH guidelines, 2015). 08/02/2025 3:40 PM EST [facility] Anisocytosis 3+(A) Not Present 08/02/2025 3:40 PM EST [facility] Hypochromia 2+(A) Not Present 08/02/2025 3:40 PM EST [facility] Macrocytes 2+(A) Not Present 08/02/2025 3:40 PM EST [facility] Microcytes 2+(A) Not Present 08/02/2025 3:40 PM EST [facility] Blood Structure of peripheral vein / Unknown Venipuncture / Unknown 08/02/2025 2:42 PM EST 08/02/2025 2:48 PM EST us Protocol Unv Adult Treatment MD LAB BLOOD ORDERA BLES Final Result [facility] [address] [place] [address], * hCG Qualitative w/Reflex to Quantitative (08/02/2025 2:42 PM EST) Pathologist [facility] HCG Qualitative, Serum Negative Negative 08/02/2025 5:05 PM EST [facility] Comment: hCG greater than or equal to 5.0 mlU/mL is considered positive. hCG may be negative in early . Suggest repeat testing in 2-4 days if clinically indicated. Human anti-mouse antibodies (HAMA) and other heterophilic antibodies if present can interfere with the assay. The result of this test should be interpreted with the patient's clinical presentation. Blood Structure of peripheral vein / Unknown Venipuncture / Unknown 08/02/2025 2:42 PM EST 08/02/2025 2:48 PM EST us Arielle Sánchez MD LAB BLOOD ORDERA BLES Final Result [facility] [address] [place] [address], * (ABNORMAL) CBC Auto Differential (08/02/2025 2:42 PM EST) WBC 6.0 3.8 - 10.8 10*3/uL 08/02/2025 3:40 PM EST [facility] RBC 4.05 3.80 - 5.10 10*6/uL 08/02/2025 3:40 PM EST [facility] Hemoglobin 9.9(L) 11.7 - 15.5 g/dL 08/02/2025 3:40 PM EST [facility] Hematocrit 32.9(L) 35.0 - 45.0 % 08/02/2025 3:40 PM EST [facility] MCV 81.2 80.0 - 100.0 fL 08/02/2025 3:40 PM EST [facility] MCH 24.4(L) 27.0 - 33.0 pg 08/02/2025 3:40 PM EST [facility] MCHC 30.1(L) 32.0 - 36.0 g/dL 08/02/2025 3:40 PM EST [facility] RDW 08/02/2025 3:40 PM EST [facility] Comment:Test not performed. Platelets 298 140 - 400 10*3/uL 08/02/2025 3:40 PM EST [facility] MPV 9.9 7.5 - 12.5 fL 08/02/2025 3:40 PM EST [facility] Neutrophil % 62.0 % 08/02/2025 3:40 PM EST [facility] Immature Grans % 0.2 0.0 - 0.9 % 08/02/2025 3:40 PM EST [facility] Lymphocyte % 24.7 % 08/02/2025 3:40 PM EST [facility] Monocyte % 8.9 % 08/02/2025 3:40 PM EST [facility] Eosinophil % 3.2 % 08/02/2025 3:40 PM EST [facility] Basophil % 1.0 % 08/02/2025 3:40 PM EST [facility] Neutrophil # 3.69 1.50 - 7.80 10*3/uL 08/02/2025 3:40 PM EST [facility] Immature Grans # <0.03 <=0.03 10*3/uL 08/02/2025 3:40 PM EST [facility] Lymphocyte # 1.50 0.85 - 3.90 10*3/uL 08/02/2025 3:40 PM EST [facility] Monocyte # 0.50 0.20 - 0.95 10*3/uL 08/02/2025 3:40 PM EST [facility] Eosinophil # 0.20 0.02 - 0.50 10*3/uL 08/02/2025 3:40 PM EST [facility] Basophil # 0.10 0.00 - 0.20 10*3/uL 08/02/2025 3:40 PM EST [facility] nRBC % 0.0 /100 WBCs 08/02/2025 3:40 PM EST [facility] nRBC # <0.01 <0.01 10*3/uL 08/02/2025 3:40 PM EST [facility] Blood Structure of peripheral vein / Unknown Venipuncture / Unknown 08/02/2025 2:42 PM EST 08/02/2025 2:48 PM EST us Protocol Unv Adult Treatment MD LAB BLOOD ORDERA BLES Final Result [facility] [address] [place] [address], * (ABNORMAL) Basic Metabolic Panel (08/02/2025 2:42 PM EST) NA 140 135 - 145 mmol/L 08/02/2025 3:17 PM EST [email or web address] K 3.9 3.5 - 5.3 mmol/L 08/02/2025 3:17 PM EST [email or web address] Cl 103 97 - 110 mmol/L 08/02/2025 3:17 PM EST [email or web address] CO2 24 22 - 32 mmol/L 08/02/2025 3:17 PM EST [facility] BUN 20 7 - 23 mg/dL 08/02/2025 3:17 PM EST [email or web address] Creatinine 0.79 0.50 - 1.20 mg/dL 08/02/2025 3:17 PM EST [email or web address] Glucose 124(H) 65 - 99 mg/dL 08/02/2025 3:17 PM EST [facility] Calcium 9.1 8.6 - 10.5 mg/dL 08/02/2025 3:17 PM EST [facility] Anion Gap 13 5 - 15 08/02/2025 3:17 PM EST [email or web address] eGFR >90 >=60 mL/min/1. 73m2 08/02/2025 3:17 PM EST [email or web address] Comment:The estimated glomer ular filtration rate (eGFR) is calculated using a new formula developed by the NKF-ASN task force to eliminate race-based correction factors. The new formula uses serum/plasma creatinine, age, and gender to determine eGFR. A value below 60mls/min might indicate kidney disease and will be flagged. For additional information, see Kellen et al, Am J Kidney Dis. 2021;79(2):268- 288, A Unifying Approach for GFR estimation: Recommendations of the NKF-ASN Task Force on Reassessing the Inclusion of Race in Diagnosing Kidney Disease . Blood Structure of peripheral vein / Unknown Venipuncture / Unknown 08/02/2025 2:42 PM EST 08/02/2025 2:48 PM EST us Protocol Unv Adult Treatment LAB BLOOD ORDERA BLES Final Result [facility] [address] [place] [address], from Last 3 Months Insurance MEDICARE Advance Directives Documents on File Type Date Recorded Patient Acquisition Analyst Expl anation MOLST/POLST 08/03/2025 11:54 AM 07-22-20 25 Care Teams Cafe Site Attendant Relationship Specialty Start Date End Date Oniel Sanches [address] [place] [address] [place] [address] PCP - General Internal Medicine 08/02/23
--- OUTSIDE RECORDS SUMMARY | 2025-08-16 15:23 | XMS_ITS | Clinical Summary ---
Author Organization 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 5 07/12/20 26 Active vancomycin 750 mg in sodium chloride 0.9 % 250 mL IVPB Infuse 750 mg into a venous catheter every 12 (twelve) hours for 101 doses. 5 08/31/20 25 Active traZODone (DESYREL) 50 mg tablet Take 0.5 tablets (25 mg total) by mouth at bedtime as needed for sleep. 5 Active methadone (DOLOPHINE) 10 mg tabletIndicatio ns:Septic arthritis of lumbar spine ([facility] V24) Take 5 tablets (50 mg total) by mouth 1 (one) time each day. Max Daily Amount: 50 mg 5 Active acetaminophen (TYLENOL) 325 mg tablet Take 2 tablets (650 mg total) by mouth every 4 (four) hours if needed for mild pain, headaches or fever - temperature GREATER than 38 C (100.4 F) for up to 10 days. 5 07/21/20 25 ascorbic acid (VITAMIN C) 250 mg tablet Take 1 tablet (250 mg total) by mouth 1 (one) time each day. 5 08/11/20 25 aluminum-magnes ium hydroxide-simet hicone (MAALOX) 200-200-20 mg/5 mL suspension Take 10 mL by mouth 4 (four) times a day (before meals and nightly) for 5 days. 5 07/21/20 25 cariprazine (VRAYLAR) 1.5 mg capsule Take 1 capsule (1.5 mg total) by mouth 1 (one) time each day for 14 days. 5 07/31/20 25 oxyCODONE (ROXICODONE) 5 mg immediate release tabletIndicatio ns:Septic arthritis of lumbar spine ([facility] V24) Take 1 tablet (5 mg total) by mouth 3 (three) times a day if needed for moderate pain or severe pain for up to 2 days. 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 [address] [place] [phone] Fainsod, Adrian, MD Dockery, Christopher, MD BukaloEnriqueta MD Surendran, Anupama, MD Rasul, Yar M, MD Seralathan, Manikandan, MD Sepsis due to methicillin resistant Staphylococcus aureus (MRSA) without acute organ dysfunction ([facility] V24, [facility] V28) (Primary Dx); Bacteremia; Septic arthritis of intervertebral joint ([facility] V24); Septic arthritis of lumbar spine ([facility] V24) Discharge Disposition: Left Against Medical Advice 06/30/2025 7:05 AM EDT - 07/02/2025 9:06 AM EDT Hospital Encounter [facility] [address] [place] [address] Enriqueta Dunaway MD Alam, Aroosa, MD Symptomatic [...] TROUGH Timed 07/06/2025 9: 51 AM EDT NM IMMUNOFIXATION ELECTROPHORESIS SERUM Routine 07/06/2025 5:46 AM EDT NM PROTEIN ELECTROPHORETIC FRACTIONATION & QUANTITATION SERUM Routine [...] LAB CHEMISTRY METHOD 07/13/2025 10:59 PM EST [facility] eGFR 100 >=60 mL/min/1. 73m2 LAB CHEMISTRY METHOD 07/13/2025 10:59 PM EST [facility] Comment:Calculation based on the Chronic Kidney Disease Epidemiology Collaboration (CKD-EPI) equation refit without adjustment for race. Blood Venous blood specimen / Unknown Venipuncture / Unknown 07/13/2025 10:28 PM EST 07/13/2025 10:37 PM EST us Prabhjot Neely MD LAB BLOOD ORDERABLES Final Resul t [facility] [address] [place] [address], [place] [phone] * Vancomycin, trough New vanco trough prior to dose. (07/13/2025 10:28 PM EST) Only the most recent of7 resultswithin the time period is included. Vancomycin Trough 14.8 10.0 - 20.0 mcg/mL LAB CHEMISTRY METHOD 07/13/2025 10:59 PM EST [facility] Blood Venous blood specimen / Unknown Venipuncture / Unknown 07/13/2025 10:28 PM EST 07/13/2025 10:37 PM EST us Prabhjot Neely MD LAB BLOOD ORDERABLES Final Resul t [facility] [address] [place] [address], [place] [phone] * Insert PICC line (07/09/2025 9:12 PM EST) Narrative Kathy Garcia RN - 07/09/2025 9:12 PM EST Kathy Garcia RN 07/09/2025 9:16 PM PICC Line Insertion Procedure Note Procedure: Insertion of 4F single lumen Bard PowerPICC Lot: [id number] Exp: Indications: Vancomycin IV until08/30/25 Procedure Details: [...] of9 resultswithin the time period is included. WBC 5.1 4.8 - 10.8 K/mcL LAB HEMETOLOGY METHOD 07/08/2025 6:53 AM [facility] RBC 3.70(L) 3.80 - 4.80 M/mcL LAB HEMETOLOGY METHOD 07/08/2025 6:53 AM [facility] Hemoglobin 7.6(L) 11.5 - 16.0 g/dL LAB HEMETOLOGY METHOD 07/08/2025 6:53 AM [facility] Hematocrit 26.7(L) 35.0 - 47.0 % LAB HEMETOLOGY METHOD 07/08/2025 6:53 AM [facility] MCV 72.8(L) 79.0 - 98.0 FL LAB HEMETOLOGY METHOD 07/08/2025 6:53 AM [facility] MCH 20.7(L) 27.0 - 32.0 pcg LAB HEMETOLOGY METHOD 07/08/2025 6:53 AM [facility] MCHC 28.5(L) 32.0 - 37.0 g/dL LAB HEMETOLOGY METHOD 07/08/2025 6:53 AM [facility] RDW 21.8(H) 11.0 - 15.0 % LAB HEMETOLOGY METHOD 07/08/2025 6:53 AM [facility] Platelets 314 130 - 400 K/mcL LAB HEMETOLOGY METHOD 07/08/2025 6:53 AM [facility] MPV 9.8 7.0 - 11.0 FL LAB HEMETOLOGY METHOD 07/08/2025 6:53 AM [facility] NRBC 0.0 <1.0 % LAB HEMETOLOGY METHOD 07/08/2025 6:53 AM [facility] NRBC Absolute 0.00 <0.10 K/mcL LAB HEMETOLOGY METHOD 07/08/2025 6:53 AM [facility] Neutrophils Relative 57.9 % LAB HEMETOLOGY METHOD 07/08/2025 6:53 AM [facility] Lymphocytes Relative 28.3 % LAB HEMETOLOGY METHOD 07/08/2025 6:53 AM [facility] Monocytes Relative 7.9 % LAB HEMETOLOGY METHOD 07/08/2025 6:53 AM [facility] Eosinophils Relative 4.1 % LAB HEMETOLOGY METHOD 07/08/2025 6:53 AM [facility] Basophils Relative 1.4 % LAB HEMETOLOGY METHOD 07/08/2025 6:53 AM [facility] Immature Granulocytes Relative 0.4 % LAB HEMETOLOGY METHOD 07/08/2025 6:53 AM [facility] Neutrophils Absolute 2.94 1.50 - 7.00 K/mcL LAB HEMETOLOGY METHOD 07/08/2025 6:53 AM [facility] Lymphocytes Absolute 1.44 1.00 - 5.00 K/mcL LAB HEMETOLOGY METHOD 07/08/2025 6:53 AM [facility] Monocytes Absolute 0.40 0.20 - 1.00 K/mcL LAB HEMETOLOGY METHOD 07/08/2025 6:53 AM [facility] Eosinophils Absolute 0.21 0.00 - 0.50 K/mcL LAB HEMETOLOGY METHOD 07/08/2025 6:53 AM [facility] Basophils Absolute 0.07 0.00 - 0.20 K/mcL LAB HEMETOLOGY METHOD 07/08/2025 6:53 AM EST [facility] Immature Granulocytes Absolute 0.02 0.00 - 0.03 K/mcL LAB HEMETOLOGY METHOD 07/08/2025 6:53 AM EST [facility] Blood Venous blood specimen / Unknown Venipuncture / Unknown 07/08/2025 6:02 AM EST 07/08/2025 6:31 AM EST [facility] BLOOD ORDERABLES Final Result Performing Organization Address [facility] Co de Phone Number [facility] [address] [place] [address], [place] [phone] * Magnesium (07/08/2025 6:02 AM EST) Only the most recent of7 resultswithin the time period is included. Magnesium 2.2 1.9 - 2.6 mg/dL LAB CHEMISTRY METHOD 07/08/2025 7:19 AM [facility] Blood Venous blood specimen / Unknown Venipuncture / Unknown 07/08/2025 6:02 AM EST 07/08/2025 6:31 AM EST Gwendolyn Sanchez [facility] BLOOD ORDERABLES Final Result Performing Organization Address [facility] de Phone Number [facility] [address] [place] [address], [place] [phone] * Basic metabolic panel (07/08/2025 6:02 AM EST) Only the most recent of9 resultswithin the time period is included. Sodium 140 133 - 145 mmol/L LAB CHEMISTRY METHOD 07/08/2025 7:19 AM EST [facility] Potassium 3.8 3.5 - 5.5 mmol/L LAB CHEMISTRY METHOD 07/08/2025 7:19 AM [facility] Chloride 108 96 - 110 mmol/L LAB CHEMISTRY METHOD 07/08/2025 7:19 AM [facility] CO2 27 21 - 32 mmol/L LAB CHEMISTRY METHOD 07/08/2025 7:19 AM [facility] Anion Gap 5 3 - 11 LAB CHEMISTRY METHOD 07/08/2025 7:19 AM [facility] Glucose 84 70 - 100 mg/dL LAB CHEMISTRY METHOD 07/08/2025 7:19 AM [facility] BUN 22 5 - 25 mg/dL LAB CHEMISTRY METHOD 07/08/2025 7:19 AM [facility] Creatinine 0.81 0.50 - 1.10 mg/dL LAB CHEMISTRY METHOD 07/08/2025 7:19 AM [facility] eGFR 90 >=60 mL/min/1. 73m2 LAB CHEMISTRY METHOD 07/08/2025 7:19 AM [facility] Comment:Calculation based on the Chronic Kidney Disease Epidemiology Collaboration (CKD-EPI) equation refit without adjustment for race. BUN/Creatinine Ratio 27.2 LAB CHEMISTRY METHOD 07/08/2025 7:19 AM [facility] Calcium 8.9 8.5 - 10.5 mg/dL LAB CHEMISTRY METHOD 07/08/2025 7:19 AM [facility] Blood Venous blood specimen / Unknown Venipuncture / Unknown 07/08/2025 6:02 AM EST 07/08/2025 6:31 AM EST Gwendolyn BURKS LAB BLOOD ORDERABLES Final Result [facility] [address] [place] [address], * Vascular US duplex upper extremity venous [...] Mabel Lawrence MD 07/08/2025 2:48 PM EST [facility] Blood Venous blood specimen / Unknown Venipuncture / Unknown 07/06/2025 5:46 AM EDT 07/06/2025 6:34 AM EDT us Prabhjot Neely MD LAB BLOOD ORDERABLES Final Resul t [facility] [address] [place] [address], [place] [phone] * PATHOLOGIST REVIEW PROTEIN ELECTROPHORESIS (07/06/2025 5:46 AM EDT) Pathologist Interpretation Mabel Lawrence MD 07/08/2025 2:48 PM EST [facility] Blood Venous blood specimen / Unknown Venipuncture / Unknown 07/06/2025 5:46 AM EDT 07/06/2025 6:34 AM EDT [facility] LAB BLOOD ORDERABLES Final Result Performing Organization Address City/[facility]/ZIP Co de Phone Number [facility]) [facility] [address] [place] [address], [place] [phone] * (ABNORMAL) Hemoglobin electrophoresis (07/06/2025 5:46 AM EDT) Hemoglobin A1 98.0(H) 96.5 - 97.8 % 07/08/2025 11:27 AM EST [facility] Hemoglobin A2 2.0(L) 2.2 - 3.2 % 07/08/2025 11:27 AM EST [facility] Hemoglobin F 0.0 <2.0 % 07/08/2025 11:27 AM EST [facility] Hemoglobin S 0.0 0.0 % 07/08/2025 11:27 AM EST [facility] Hemoglobin C 0.0 0.0 % 07/08/2025 11:27 AM EST [facility] Interpretation See Below 07/08/2025 11:27 AM EST [facility] Comment: No abnormal hemoglobin variants seen on hemoglobin electrophoresis. Hemoglobin A2 is decreased. Common causes include, but are not limited to, iron deficiency, alpha thalassemia, and delta thalassemia. Test performed at [facility], [address] , [place] [address] Magy Concepcion MD, PhD - Filament Shaper Blood Venous blood specimen / Unknown Venipuncture / Unknown 07/06/2025 5:46 AM EDT 07/06/2025 6:35 AM EDT [address] LAB BLOOD ORDERABLES Final Result [facility] [address] [place] [address] * Immunofixation electrophoresis serum (07/06/2025 5:46 AM EDT) [facility] Immunofixation Result, Serum IgG Lambda monoclonal immunoglobulins detected. LAB CHEMISTRY METHOD 07/08/2025 2:48 PM [facility] Blood Venous blood specimen / Unknown Venipuncture / Unknown 07/06/2025 5:46 AM EDT 07/06/2025 6:34 AM EDT us Prabhjot Neely MD LAB BLOOD ORDERABLES Final Resul t Performing Organization Address [facility] Co de Phone Number [facility] [address] [place] [address], [place] [phone] * (ABNORMAL) Immunoglobulins IgG, IgA, IgM (07/06/2025 5:46 AM EDT) [facility] Total IgG 2,240(H) 549 - 1,584 mg/dL LAB CHEMISTRY METHOD 07/08/2025 11:52 AM [facility] IgA 308 61 - 348 mg/dL LAB CHEMISTRY METHOD 07/08/2025 11:52 AM [facility] IgM 255 23 - 259 mg/dL LAB CHEMISTRY METHOD 07/08/2025 11:52 AM [facility] Blood Venous blood specimen / Unknown Venipuncture / Unknown 07/06/2025 5:46 AM EDT 07/06/2025 6:34 AM EDT us Prabhjot Neely MD LAB BLOOD ORDERABLES Final Resul t Performing Organization Address [facility]/ZIP Co de Phone Number [facility] [address] [place] [address], [place] [phone] * (ABNORMAL) Protein electrophoresis, serum (07/06/2025 5:46 AM EDT) [facility] Total Protein 7.4 6.0 - 8.0 g/dL LAB CHEMISTRY METHOD 07/08/2025 2:48 PM [facility] Albumin, Serum 2.7(L) 2.9 - 4.1 g/dL LAB CHEMISTRY METHOD 07/08/2025 2:48 PM [facility] Alpha 1 Globulin (g/dL) 0.4 0.1 - 0.5 g/dL LAB CHEMISTRY METHOD 07/08/2025 2:48 PM [facility] Alpha 2 Globulin (g/dL) 1.0 0.7 - 1.5 g/dL LAB CHEMISTRY METHOD 07/08/2025 2:48 PM [facility] Beta (g/dL) 1.0 0.7 - 1.5 g/dL LAB CHEMISTRY METHOD 07/08/2025 2:48 PM [facility] Gamma Globulin (g/dL) 2.4(H) 0.7 - 1.9 g/dL LAB CHEMISTRY METHOD 07/08/2025 2:48 PM [facility] SPEP Interpretation Monoclonal gammopathy Abnormal pattern with immeasurable M-spike of gamma globulin mobility. Serum Immunofixation performed on this specimen demonstrated IgG Lambda monoclonal protein. LAB CHEMISTRY METHOD 07/08/2025 2:48 PM [facility] Blood Venous blood specimen / Unknown Venipuncture / Unknown 07/06/2025 5:46 AM EDT 07/06/2025 6:34 AM EDT Gwendolyn BURKS LAB BLOOD ORDERABLES Final Result [facility] [address] [place] [address], * Protein, total (07/06/2025 5:46 AM EDT) Total Protein 7.4 6.0 - 8.0 g/dL LAB CHEMISTRY METHOD 07/06/2025 7:47 [facility] Blood Venous blood specimen / Unknown Venipuncture / Unknown 07/06/2025 5:46 AM EDT 07/06/2025 6:34 AM EDT Gwendolyn BURKS LAB BLOOD ORDERABLES Final Result Performing Organization Address City/[facility]/ZIP Co de Phone Number [facility] [address] [place] [address], [place] [phone] * (ABNORMAL) Iron (07/06/2025 5:46 AM EDT) [facility] Iron 32(L) 40 - 150 mcg/dL LAB CHEMISTRY METHOD 07/06/2025 7:45 AM [facility] Comment:Results verified by repeat testing Blood Venous blood specimen / Unknown Venipuncture / Unknown 07/06/2025 5:46 AM EDT 07/06/2025 6:34 AM EDT Gwendolyn BURKS LAB BLOOD ORDERABLES Final Result Performing Organization Address [facility]/ZIP Co de Phone Number [facility] [address] [place] [address], [place] [phone] * (ABNORMAL) Urinalysis with reflex microscopic and culture (07/05/2025 3:58 PM EDT) Only the most recent of2 resultswithin the time period is included. [facility] Specific [place] Urine 1.009 1.003 - 1.030 LAB URINALYSIS - AUTOMATED METHOD 07/05/2025 4:31 PM [facility] pH, Urine 7.5 5.0 - 8.0 pH LAB URINALYSIS - AUTOMATED METHOD 07/05/2025 4:31 PM [facility] Leukocytes, Urine Trace(A) Negative LAB URINALYSIS - AUTOMATED METHOD 07/05/2025 4:31 PM EDT [facility] Nitrite, Urine Negative Negative LAB URINALYSIS - AUTOMATED METHOD 07/05/2025 4:31 PM [facility] Protein, Urine Negative <=Trace mg/dL LAB URINALYSIS - AUTOMATED METHOD 07/05/2025 4:31 PM [facility] Glucose, Urine Negative Negative mg/dL LAB URINALYSIS - AUTOMATED METHOD 07/05/2025 4:31 PM [facility] Ketones, Urine Negative Negative mg/dL LAB URINALYSIS - AUTOMATED METHOD 07/05/2025 4:31 PM [facility] Urobilinogen, Urine 0.2 0.2 - 1.0 mg/dL LAB URINALYSIS - AUTOMATED METHOD 07/05/2025 4:31 PM [facility] Bilirubin, Urine Negative Negative LAB URINALYSIS - AUTOMATED METHOD 07/05/2025 4:31 PM [facility] Blood, Urine Negative Negative LAB URINALYSIS - AUTOMATED METHOD 07/05/2025 4:31 PM [facility] RBC, Urine 3.3 0 - 4 /HPF LAB URINALYSIS - AUTOMATED METHOD 07/05/2025 4:31 PM [facility] WBC, Urine 1.8 0 - 4 /HPF LAB URINALYSIS - AUTOMATED METHOD 07/05/2025 4:31 PM [facility] Squamous Epithelial, Urine 9 0 - 60 /LPF LAB URINALYSIS - AUTOMATED METHOD 07/05/2025 4:31 PM [facility] Bacteria, Urine Negative Negative /HPF LAB URINALYSIS - AUTOMATED METHOD 07/05/2025 4:31 PM [facility] Hyaline Casts, Urine 0.0 0 - 3 /LPF LAB URINALYSIS - AUTOMATED METHOD 07/05/2025 4:31 PM [facility] Urine Urine specimen obtained by clean catch procedure / Unknown Non-blood Collection / Unknown 07/05/2025 3:58 PM EDT 07/05/2025 4:04 PM EDT Gwendolyn BURKS LAB URINE ORDERABLES Final Result [facility] [address] [place] [address], [place] [phone] * Salas urine culture tube (07/05/2025 3:58 PM EDT) Only the most recent of2 resultswithin the time period is included. Pathologist [facility] Extra Tube Hold for add-ons. 07/05/2025 6:02 PM EDT [facility] Comment:Auto resulted. Urine Urine specimen obtained by clean catch procedure / Unknown Non-blood Collection / Unknown 07/05/2025 3:58 PM EDT 07/05/2025 4:04 PM EDT Gwendolyn BURKS [facility] URINE ORDERABLES Final Result Performing Organization Address [facility] Co de Phone Number [facility] [address] [place] [address], [place] [phone] * Chlamydia trachomatis and Neisseria gonorrhoeae molecular study (07/05/2025 3:58 PM EDT) [facility] Neisseria gonorrhoeae PCR Negative Negative LAB MOLECULAR DIAGNOSTICS METHOD 07/06/2025 10:01 AM EDT [facility] Chlamydia trachomatis PCR Negative Negative LAB MOLECULAR DIAGNOSTICS METHOD 07/06/2025 10:01 AM EDT [facility] Urine Urine specimen obtained by clean catch procedure / Unknown Non-blood Collection / Unknown 07/05/2025 3:58 PM EDT 07/05/2025 4:04 PM EDT Gwendolyn BURKS LAB MICROBIOLOGY - GENERAL ORDERABLES Final Result Performing Organization Address City/[facility]/ZIP Co de Phone Number [facility] [address] [place] [address], [place] [phone] * Culture urine (07/05/2025 3:58 PM EDT) Only the most recent of2 resultswithin the time period is included. Culture, Urine No growth 07/06/2025 1:27 PM EDT [facility] Urine Urine specimen obtained by clean catch procedure / Unknown Non-blood Collection / Unknown 07/05/2025 3:58 PM EDT 07/05/2025 4:31 PM EDT Gwendolyn BURKS LAB MICROBIOLOGY - GENERAL ORDERABLES Final Result Performing Organization Address [facility] Co de Phone Number [facility] [address] [place] [address], [place] [phone] * Culture blood (07/05/2025 11:20 AM EDT) Only the most recent of9 resultswithin the time period is included. Culture, Blood No growth at 5 days 07/10/2025 11:01 AM EST [facility] Blood Venous blood specimen / Unknown Venipuncture / Unknown 07/05/2025 11:20 AM EDT 07/05/2025 11:42 AM EDT Gwendolyn BURKS [facility] MICROBIOLOGY - GENERAL ORDERABLES Final Result Performing Organization Address City/[facility]/ZIP Co de Phone Number [facility] [address] [place] [address], [place] [phone] * (ABNORMAL) Lactate dehydrogenase (07/05/2025 6:36 AM EDT) Only the most recent of2 resultswithin the time period is included. LDH 258(H) 120 - 246 unit/L LAB CHEMISTRY METHOD 07/05/2025 8:59 AM EDT [facility] Comment:Results verified by repeat testing Blood Venous blood specimen / Unknown Venipuncture / Unknown 07/05/2025 6:36 AM EDT 07/05/2025 6:58 AM EDT [facility] Sanchez CT LAB BLOOD ORDERABLES Final Result Performing Organization Address [facility]/ZIP Co de Phone Number [facility] [address] [place] [address], [place] [phone] * (ABNORMAL) Haptoglobin (07/05/2025 6:36 AM EDT) Only the most recent of2 resultswithin the time period is included. [facility] Haptoglobin 369(H) 16 - 200 mg/dL LAB CHEMISTRY METHOD 07/05/2025 8:21 AM EDT [facility] Blood Venous blood specimen / Unknown Venipuncture / Unknown 07/05/2025 6:36 AM EDT 07/05/2025 6:58 AM EDT G[address]yn Sanchez CT LAB BLOOD ORDERABLES Final Result Performing Organization Address [facility] de Phone Number [facility] [address] [place] [address], [place] [phone] * (ABNORMAL) Hepatic function panel (07/05/2025 6:36 AM EDT) Only the most recent of2 resultswithin the time period is included. Pathologist [facility] Total Protein 8.3(H) 6.0 - 8.0 g/dL LAB CHEMISTRY METHOD 07/05/2025 8:47 AM EDT [facility] Albumin 2.9(L) 3.2 - 5.0 g/dL LAB CHEMISTRY METHOD 07/05/2025 8:47 AM EDT [facility] Total Bilirubin 0.2 0.0 - 1.4 mg/dL LAB CHEMISTRY METHOD 07/05/2025 8:47 AM EDT [facility] Bilirubin, Direct <0.1 0.0 - 0.3 mg/dL LAB CHEMISTRY METHOD 07/05/2025 8:47 AM EDT [facility] Bilirubin, Indirect LAB CHEMISTRY METHOD 07/05/2025 8:47 AM EDT [facility] Comment:Unable to calculate Indirect Bilirubin. ALT (SGPT) 15 10 - 60 unit/L LAB CHEMISTRY METHOD 07/05/2025 8:47 AM EDT [facility] AST (SGOT) 17 10 - 42 unit/L LAB CHEMISTRY METHOD 07/05/2025 8:47 AM EDT [facility] Alkaline Phosphatase 76 42 - 121 unit/L LAB CHEMISTRY METHOD 07/05/2025 8:47 AM T [facility] Blood Venous blood specimen / Unknown Venipuncture / Unknown 07/05/2025 6:36 AM EDT 07/05/2025 6:58 AM EDT Gwendolyn BURKS LAB BLOOD ORDERABLES Final Result [facility] [address] [place] [address], * (ABNORMAL) AST, ALT, Bilirubin ELR state reportables (07/04/2025 11:48 AM EDT) Only the most recent of2 resultswithin the time period is included. ALT (SGPT) 8(L) 10 - 60 unit/L LAB CHEMISTRY METHOD 07/04/2025 4:27 PM EDT [facility] AST (SGOT) 12 10 - 42 unit/L LAB CHEMISTRY METHOD 07/04/2025 4:27 PM EDT [facility] Bilirubin, Direct <0.1 0.0 - 0.3 mg/dL LAB CHEMISTRY METHOD 07/04/2025 4:27 PM [facility] Total Bilirubin 0.2 0.0 - 1.4 mg/dL LAB CHEMISTRY METHOD 07/04/2025 4:27 PM EDT [facility] Blood Venous blood specimen / Unknown Venipuncture / Unknown 07/04/2025 11:48 AM EDT 07/04/2025 12:02 PM EDT us Julianna Orozco MD LAB BLOOD ORDERABLES Final Resul t Performing Organization Address City/[facility]/ZIP Co de Phone Number [facility] [address] [place] [address], [place] [phone] * (ABNORMAL) Hepatitis C virus quantitative molecular study (07/04/2025 11:48 AM EDT) [facility] HCV Qual Interp Detected (A) Not Detected LAB MOLECULAR DIAGNOSTICS METHOD 07/04/2025 4:24 PM EDT [facility] LAB HCV RNA Quantitative 844,418( H) <12 I Unit/mL LAB MOLECULAR DIAGNOSTICS METHOD 07/04/2025 4:24 PM EDT [facility] HCV RNA Quantitative Log 5.93(H) <1.08 Log IU/mL LAB MOLECULAR DIAGNOSTICS METHOD 07/04/2025 4:24 PM EDT [facility] Blood Venous blood specimen / Unknown Venipuncture / Unknown 07/04/2025 11:48 AM EDT 07/04/2025 12:02 PM EDT us Julianna Orozco MD LAB BLOOD ORDERABLES Final Resul t Performing Organization Address City/[facility]/ZIP Co de Phone Number [facility] [address] [place] [address], [place] [phone] * (ABNORMAL) Blood culture pathogens molecular study (2025 1:35 PM EDT) Only the most recent of2 resultswithin the time period is included. [facility] Staphylococcus aureus Detected (A) Not Detected LAB MICROBIOLOGY METHOD 07/04/2025 4:04 PM EDT [facility] mecA/C and MREJ (MRSA) Detected (A) Not Detected LAB MICROBIOLOGY METHOD 07/04/2025 4:04 PM EDT [facility] Comment:mecA/C and MREJ Gene Detected: Indicates Methicillin Resistant Staphylococcus. Blood Venous blood specimen / Unknown Venipuncture / Unknown 2025 1:35 PM EDT 2025 1:39 PM EDT us Julianna Orozco MD LAB MICROBIOLOGY - GENERAL ORDER RICARDO Final Result Performing Organization Address [facility] de Phone Number [facility] [address] [place] [address], [place] [phone] * (ABNORMAL) Hepatitis C antibody (2025 6:10 AM EDT) Pathologist [facility] Hepatitis C Antibody Positive (A) Negative LAB CHEMISTRY METHOD 2025 10:57 PM EDT [facility] Comment:If confirmation of t his [...] ORDERABLES Final Resul t Performing Organization Address [facility]/ZIP Co de Phone Number [facility] [address] [place] [address], [place] [phone] * HIV 1,2 antibody, p24 antigen with reflex to differentiation (2025 6:10 AM EDT) Pathologist [facility] HIV Combo AB/AG Negative Negative LAB CHEMISTRY METHOD 2025 10:57 PM EDT [facility] Blood Venous blood specimen / Unknown Venipuncture / Unknown 2025 6:10 AM EDT 2025 7:00 AM EDT Narrative [facility] - 2025 10:57 PM EDT This assay is a 4th generation assay allowing for earlier detection of HIV infection by detecting the presence of the HIV-1 p24 antigen as well as the traditional antibodies to HIV type 1 (including group O) and type 2. Use of a 4th generation assay is the current CDC recommendation for HIV screening. Julianna Orozco MD LAB BLOOD ORDERABLES Final Resul t Performing Organization Address [facility] de Phone Number [facility] [address] [place] [address], [place] [phone] * Hepatitis B surface antigen with reflex to confirmation (2025 6:10 AM EDT) Hepatitis B Surface Ag Negative Negative LAB CHEMISTRY METHOD 2025 10:28 PM EDT [facility] Blood Venous blood specimen / Unknown Venipuncture / Unknown 2025 6:10 AM EDT 2025 7:00 AM EDT [facility] - 2025 10:28 PM EDT Over the counter supplements containing high doses of biotin may interfere with this assay. If interference is suspected, patients shoud be retested after refraining from biotin supplements for 72 hours. us Julianna Orozco MD LAB BLOOD ORDERABLES Final Resul t Performing Organization Address [facility] de Phone Number [facility] [address] [place] [address], [place] [phone] * Transfuse RBC, Leukoreduced (2025 5:26 AM EDT) Only the most recent of2 resultswithin the time period is included. Tu BURKS BLOOD TRANSFUSION ORDERABLES Fi nal Result * Prepare RBC: 1 Units, Leukoreduced (07/02/2025 8:35 PM EDT) Only the most recent of3 resultswithin the time period is included. Product Code [id number] 2025 2:10 AM EDT [facility] Unit Number [id number] 07/03/20 2:10 AM EDT [facility] Crossmatch Compatible 07/02/2025 9:23 PM EDT [facility] Dispense Status Transfused 2025 2:10 AM EDT [facility] Unit ABO Rh APOS 2025 2:10 AM EDT [facility] Unit Expiration Date Time 2025 2:10 AM EDT [facility] Unit Blood Type 6200 2025 2:10 AM EDT [facility] Blood Venous blood specimen / Unknown 07/02/2025 8:35 PM EDT 06/30/2025 10:26 AM EDT Tu [facility] PRODUCT ORDERABLES F inal Result Performing Organization Address City/State/[facility] Co de Phone Number [facility] [address] [place] [address], * (ABNORMAL) C-reactive protein (07/02/2025 8:17 PM EDT) Only the most recent of2 resultswithin the time period is included. Pathologist [facility] C-Reactive Protein 2.10(H) <=0.50 mg/dL LAB CHEMISTRY METHOD 07/02/2025 9:02 PM EDT [facility] Blood Venous blood specimen / Unknown Venipuncture / Unknown 07/02/2025 8:17 PM EDT 07/02/2025 8:27 PM EDT Tu BURKS LAB BLOOD ORDERABLES Final Resu lt [facility] [address] [place] [address], * (ABNORMAL) Comprehensive Metabolic Panel (CMP) (07/02/2025 8:17 PM EDT) Sodium 139 133 - 145 mmol/L LAB CHEMISTRY METHOD 07/02/2025 8:59 PM EDT [facility] Potassium 3.7 3.5 - 5.5 mmol/L LAB CHEMISTRY METHOD 07/02/2025 8:59 PM EDT [facility] Chloride 107 96 - 110 mmol/L LAB CHEMISTRY METHOD 07/02/2025 8:59 PM EDT [facility] CO2 27 21 - 32 mmol/L LAB CHEMISTRY METHOD 07/02/2025 8:59 PM EDT [facility] Anion Gap 5 3 - 11 LAB CHEMISTRY METHOD 07/02/2025 8:59 PM EDT [facility] Glucose 81 70 - 100 mg/dL LAB CHEMISTRY METHOD 07/02/2025 8:[facility] BUN 26(H) 5 - 25 mg/dL LAB CHEMISTRY METHOD 07/02/2025 8:59 PM [facility] Creatinine 0.83 0.50 - 1.10 mg/dL LAB CHEMISTRY METHOD 07/02/2025 8:59 PM EDT [facility] eGFR 88 >=60 mL/min/1. 73m2 LAB CHEMISTRY METHOD 07/02/2025 8:59 PM EDT [facility] Comment:Calculation based on the Chronic Kidney Disease Epidemiology Collaboration (CKD-EPI) equation refit without adjustment for race. BUN/Creatinine Ratio 31.3 LAB CHEMISTRY METHOD 07/02/2025 8:59 PM T [facility] Calcium 8.6 8.5 - 10.5 mg/dL LAB CHEMISTRY METHOD 07/02/2025 8:59 PM EDT [facility] AST (SGOT) 12 10 - 42 unit/L LAB CHEMISTRY METHOD 07/02/2025 8:59 PM EDT [facility] ALT (SGPT) 8(L) 10 - 60 unit/L LAB CHEMISTRY METHOD 07/02/2025 8:59 PM EDT [facility] Alkaline Phosphatase 74 42 - 121 unit/L LAB CHEMISTRY METHOD 07/02/2025 8:59 PM EDT [facility] Total Protein 7.9 6.0 - 8.0 g/dL LAB CHEMISTRY METHOD 07/02/2025 8:59 PM EDT [facility] Albumin 2.9(L) 3.2 - 5.0 g/dL LAB CHEMISTRY METHOD 07/02/2025 8:59 PM EDT [facility] Total Bilirubin 0.2 0.0 - 1.4 mg/dL LAB CHEMISTRY METHOD 07/02/2025 8:59 PM EDT [facility] Blood Venous blood specimen / Unknown Venipuncture / Unknown 07/02/2025 8:17 PM EDT 07/02/2025 8:27 PM EDT us Adrian Rodriguez MD LAB BLOOD ORDERABLES Final Res ult [facility] [address] [place] [address], * MR Lumbar Spine wo and w [...] lumbar spine with and without gadolinium Comparison: DX/NM/SR - XR L SPINE 2 3 VW [...] lumbar spine with and without gadolinium Comparison: DX/NM/SR - XR L SPINE 2 3 VW - 06/30/25 08:53 EDT Findings: 5 lumbar type vertebral bodies are present by plain film. Alignment is normal. No acute fracture. There is moderate ill-defined STIR signal elevationand enhancement within the left inferior L4 and left superior [id number] facets. There is a peripherally enhancing moderate [...] suggestive of septic arthritis involving the left [id number] joint with surrounding cellulitis. 2. Multilevel degenerative [...] MD on 07/01/2025 18:21:56 Enriqueta Dunaway MD IMG MRI PROCEDURES Final Resul t * (ABNORMAL) TRANSTHORACIC ECHOCARDIOGRAM (TTE) COMPLETE (07/01/2025 11:06 AM EDT) Left At[facility] Minor [place] 4.5 cm CV PACS Left Atrium Major [place] 4.6 cm CV PACS LA Area Sys [...] Volume 80 mL CV PACS MV [place] 9.4 m/s2 CV PACS E Wave Deceleration [...] and free t3 (07/01/2025 7:04 AM EDT) [facility] TSH 0.57 0.40 - 4.00 mcIU/mL LAB CHEMISTRY METHOD 07/01/2025 6:49 PM EDT [facility] Blood Venous blood specimen / Unknown Venipuncture / Unknown 07/01/2025 7:04 AM EDT 07/01/2025 7:20 AM EDT us Gwendolyn BURKS LAB BLOOD ORDERABLES Final Result [facility] [address] [place] [address], [place] [phone] * (ABNORMAL) Complete blood count (07/01/2025 7:04 AM EDT) [facility] WBC 8.8 4.8 - 10.8 K/mcL LAB HEMETOLOGY METHOD 07/01/2025 7:40 AM EDT [facility] RBC 3.70(L) 3.80 - 4.80 M/[facility] LAB HEMETOLOGY METHOD 07/01/2025 7:40 AM EDT [facility] Hemoglobin 7.5(L) 11.5 - 16.0 g/dL LAB HEMETOLOGY METHOD 07/01/2025 7:40 AM EDT [facility] Hematocrit 25.8(L) 35.0 - 47.0 % LAB HEMETOLOGY METHOD 07/01/2025 7:40 AM EDT [facility] MCV 69.0(L) 79.0 - 98.0 FL LAB HEMETOLOGY METHOD 07/01/2025 7:40 AM EDT [facility] MCH 20.1(L) 27.0 - 32.0 pcg LAB HEMETOLOGY METHOD 07/01/2025 7:40 AM EDT [facility] MCHC 29.1(L) 32.0 - 37.0 g/dL LAB HEMETOLOGY METHOD 07/01/2025 7:40 AM EDT [facility] RDW 18.1(H) 11.0 - 15.0 % LAB HEMETOLOGY METHOD 07/01/2025 7:40 AM EDT [facility] Platelets 623(H) 130 - 400 K/mcL LAB HEMETOLOGY METHOD 07/01/2025 7:40 AM EDT [facility] MPV 9.5 7.0 - 11.0 FL LAB HEMETOLOGY METHOD 07/01/2025 7:40 AM EDT [facility] NRBC 0.0 <1.0 % LAB HEMETOLOGY METHOD 07/01/2025 7:40 AM EDT [facility] NRBC Absolute 0.00 <0.10 K/mcL LAB HEMETOLOGY METHOD 07/01/2025 7:40 AM T [facility] Blood Venous blood specimen / Unknown Venipuncture / Unknown 07/01/2025 7:04 AM EDT 07/01/2025 7:21 AM EDT us Enriqueta Dunaway MD LAB BLOOD ORDERABLES Final Res ult [facility] [address] [place] [address], * (ABNORMAL) Fentanyl and metabolite, quantitative, urine [...] performance characteristics determined by [facility]. This confirmation testing has not been cleared or approved by the FDA. The laboratory is regulated under CLIA as qualified to perform high-complexity testing. This test is used for patient testing purposes. It should not be regarded as investigational or for research. Test performed at [facility], [address], [place] [address] Magy Concepcion MD, PhD - Filament Shaper Urine Urine specimen from urethra / Unknown Non-blood Collection / Unknown 07/01/2025 2:41 AM EDT 07/01/2025 2:57 AM EDT Yumiko Shaikh NP LAB URINE ORDERABLES Donny sandy Result - Final [facility] [address] [place] [address] * (ABNORMAL) Drug abuse screen 8a panel, urine (07/01/2025 2:41 AM EDT) [facility] Signature Amphetamine Screen, Ur Negative Negative LAB CHEMISTRY METHOD 3:39 AM EDT [facility] Comment:Certain OTC medicati ons containing ephedrine, phenylephrine, pseudoephedrine and phenylpropanolamine can cause false positive results. Barbiturate Screen, Ur Negative Negative LAB CHEMISTRY METHOD 3:39 AM T [facility] Benzodiazepine Screen, Ur Negative Negative LAB CHEMISTRY METHOD 3:39 AM [facility] Cocaine Screen, Ur Positive(A ) Negative LAB CHEMISTRY METHOD 3:39 AM [facility] Opiate Screen, Ur Positive(A ) Negative LAB CHEMISTRY METHOD 3:39 AM T [facility] Cannabinoid (THC) Screen, Ur Negative Negative LAB CHEMISTRY METHOD 3:39 AM [facility] Comment:Specimens from patie nts taking pantoprazole sodium (Protonix) have been shown to produce false positive results. Oxycodone Screen, Ur Negative Negative LAB CHEMISTRY METHOD 3:39 AM [facility] Fentanyl, Ur Positive(A ) Negative LAB CHEMISTRY METHOD 3:39 AM [facility] Urine Urine specimen obtained by clean catch procedure / Unknown Non-blood Collection / Unknown 07/01/2025 2:41 AM EDT 07/01/2025 2:57 AM EDT Narrative [facility] - 07/01/2025 3:39 AM EDT Assay [...] NP LAB URINE ORDERABLES Fin al Result [facility] [address] [place] [address], * (ABNORMAL) Methadone confirmation, urine (07/01/2025 2:41 AM EDT) Methadone Confirm Urine 420(H) Negative ng/mL 2025 11:45 PM EDT [facility] EDDP Confirm, Urine 1480(H) Negative ng/mL 2025 11:45 PM EDT [facility] Creatinine 117 20 - 250 mg/dL 2025 11:45 PM EDT [facility] Adulterants Negative 2025 11:45 PM EDT [facility] Comment: Confirmation (LC/MS/MS) Decision Limits Methadone [...] developed and the performance characteristics determined by [facility]. This confirmation testing has not been cleared or approved by the FDA. The laboratory is regulated under CLIA as qualified to perform high-complexity testing. This test is used for patient testing purposes. It should not be regarded as investigational or for research. Test performed at [facility], [address] , [place], [place] [id number] Magy Concepcion MD, PhD - Filament Shaper Urine Urine specimen from urethra / Unknown Non-blood Collection / Unknown 07/01/2025 2:41 AM EDT 07/01/2025 2:57 AM EDT us Yumiko Shaikh BAILING MACHINE OPERATOR LAB URINE ORDERABLES Fin al Result [facility] [address] [place] [address] * SST tube (06/30/2025 6:18 PM EDT) Extra Tube Hold for add-ons. 06/30/2025 8:01 PM EDT [facility] Comment:Auto resulted. Blood Venous blood specimen / Unknown 06/30/2025 6:18 PM EDT 06/30/2025 6:47 PM EDT Enriqueta Dunaway MD LAB BLOOD ORDERABLES Final Res ult Performing Organization Address [facility]/ZIP Co de Phone Number [facility] [address] [place] [address], [place] [phone] * (ABNORMAL) Soluble transferrin receptor (06/30/2025 6:18 PM EDT) Soluble Transferrin Receptor 56.3(H) 12.2 - 27.3 nmol/L 2025 5:05 PM EDT [facility] Blood Venous blood specimen / Unknown 06/30/2025 6:18 PM EDT 06/30/2025 6:47 PM EDT Narrative [facility] - 2025 5:05 PM EDT Performed at: 01 - [facility] [id number] Polytechnic Registrar: Franck Carey MD, Phone: [phone] Yumiko Shaikh NP LAB BLOOD ORDERABLES Fin al Result Performing Organization Address City/[facility]/ZIP Co de Phone Number [facility] * (ABNORMAL) Hemoglobin and hematocrit (06/30/2025 6:03 PM EDT) Hemoglobin 7.3(L) 11.5 - 16.0 g/dL LAB HEMETOLOGY METHOD 06/30/2025 7:22 PM EDT [facility] Hematocrit 25.5(L) 35.0 - 47.0 % LAB HEMETOLOGY METHOD 06/30/2025 7:22 PM EDT [facility] Blood Venous blood specimen / Unknown 06/30/2025 6:03 PM EDT 06/30/2025 7:18 PM EDT Yumiko Byrneky Monroe BAILING MACHINE OPERATOR LAB BLOOD ORDERABLES Fin al Result Performing Organization Address [facility]/ZIP Co de Phone Number [facility] [address] [place] [address], * Type and screen (06/30/2025 10:18 AM EDT) ABO Group A 06/30/2025 11:48 AM EDT [facility] Rh Type Positive 06/30/2025 11:48 AM EDT [facility] Antibody Screen Negative 06/30/2025 11:48 AM EDT [facility] Blood Venous blood specimen / Unknown Venipuncture / Unknown 06/30/2025 10:18 AM EDT 06/30/2025 10:26 AM EDT Ivonne BURKS LAB BLOOD BANK TEST ORDERABLE S Final Result Performing Organization Address [facility] Co de Phone Number [facility] [address] [place] [address], * XR Lumbar Spine 2-3 Views (06/30/2025 [...] Signed Date: 06/30/2025 10:10 ET Workstation ID: [id number] Transcribed By: Self Edit Transcribed Date: 06/30/2025 [...] Signed Date: 06/30/2025 10:10 ET Workstation ID: [id number] Transcribed By: Self Edit Transcribed Date: 06/30/2025 10:09 ET Ivonne BURKS IMG XR PROCEDURES Final Resul t * (ABNORMAL) Iron and TIBC (06/30/2025 7:46 AM EDT) Iron 12(L) 40 - 150 mcg/dL LAB CHEMISTRY METHOD 06/30/2025 12:30 PM EDT [facility] TIBC 347 250 - 450 mcg/dL LAB CHEMISTRY METHOD 06/30/2025 12:30 PM EDT [facility] Iron Saturation 3(L) 15 - 50 % LAB CHEMISTRY METHOD 06/30/2025 12:30 PM EDT [facility] Blood Venous blood specimen / Unknown Venipuncture / Unknown 06/30/2025 7:46 AM EDT 06/30/2025 8:53 AM EDT Yumiko Shaikh BAILING MACHINE OPERATOR LAB BLOOD ORDERABLES Fin al Result [facility] [address] [place] [address], * (ABNORMAL) Sedimentation rate, automated (06/30/2025 7:46 AM EDT) Pathologist [facility] Sed Rate 89(H) 0 - 20 mm/hr LAB HEMETOLOGY METHOD 06/30/2025 10:50 AM EDT [facility] Blood Venous blood specimen / Unknown Venipuncture / Unknown 06/30/2025 7:46 AM EDT 06/30/2025 8:53 AM EDT Ivonne BURKS LAB BLOOD ORDERABLES Final Re sult [facility] [address] [place] [address], * HCG, quantitative (06/30/2025 7:46 AM EDT) [facility] hCG Quant <1 mIU/mL LAB CHEMISTRY METHOD 06/30/2025 2:48 PM EDT [facility] Blood Venous blood specimen / Unknown Venipuncture / Unknown 06/30/2025 7:46 AM EDT 06/30/2025 8:53 AM EDT Narrative [facility] - 06/30/2025 2:48 PM EDT Quantitative HCG Reference Ranges Time after Conception MIU/ML 0.2-1 Week 5-50 1-2 Weeks 50-500 2-3 Weeks 100-5,000 3-4 Weeks 500-10,000 4-5 Weeks 1,000-50,000 5-6 Weeks 10,000-100,000 6-8 Weeks 15,000-200,000 2-3 Months 10,000-100,000 2nd Trimester 1,000-94,000 3rd Trimester 2,500-90,000 Non- Females 1-3 Yumiko Shaikh NP LAB BLOOD ORDERABLES Fin al Result Performing Organization Address City/[facility]/ZIP Co de Phone Number [facility] [address] [place] [address], [place] [phone] * (ABNORMAL) Folate (06/30/2025 7:46 AM EDT) [facility] Folate >20.0(H) 2.8 - 17.0 ng/ml LAB CHEMISTRY METHOD 06/30/2025 12:54 PM EDT [facility] Blood Venous blood specimen / Unknown Venipuncture / Unknown 06/30/2025 7:46 AM EDT 06/30/2025 8:53 AM EDT Yumiko Shaikh NP LAB BLOOD ORDERABLES Fin al Result Performing Organization Address [facility]/ZIP Co de Phone Number [facility] [address] [place] [address], [place] [phone] * Ferritin (06/30/2025 7:46 AM EDT) [facility] Ferritin 11 8 - 252 ng/mL LAB CHEMISTRY METHOD 06/30/2025 12:54 PM EDT [facility] Blood Venous blood specimen / Unknown Venipuncture / Unknown 06/30/2025 7:46 AM EDT 06/30/2025 8:53 AM EDT Yumiko Shaikh BAILING MACHINE OPERATOR LAB BLOOD ORDERABLES Fin al Result Performing Organization Address City/[facility]/ZIP Co de Phone Number [facility] [address] [place] [address], [place] [phone] * Vitamin B12 (06/30/2025 7:46 AM EDT) [facility] Vitamin B-12 260 250 - 900 pcg/mL LAB CHEMISTRY METHOD 06/30/2025 12:54 PM EDT [facility] Blood Venous blood specimen / Unknown Venipuncture / Unknown 06/30/2025 7:46 AM EDT 06/30/2025 8:53 AM EDT Yumiko Shaikh NP LAB BLOOD ORDERABLES Fin al Result [facility] [address] [place] [address], [place] [phone] * Ethanol (06/30/2025 7:46 AM EDT) Ethanol Level <3 0 - 10 mg/dL LAB CHEMISTRY METHOD 06/30/2025 12:30 PM EDT [facility] Blood Venous blood specimen / Unknown Venipuncture / Unknown 06/30/2025 7:46 AM EDT 06/30/2025 8:53 AM EDT Yumiko Shaikh BAILING MACHINE OPERATOR LAB BLOOD ORDERABLES Fin al Result [facility] [address] [place] [address], [place] [phone] from Last 3 Months Insurance [facility]IC[facility] Member Subscriber Plan / Payer (Ef fective 2024-Present) Name:KATHY BALLARD Relation to Subscriber:Self Name:Kathy Ballard Payer ID:[id number] Group ID:[id number] Type:Not on file Address: [place] [address] [address] [phone] Advance Directives * Full Code - Default [...] currently active code status orders. Care Teams Bulk Truck Driver Relationship Specialty Start Date End Date Physician, Pcp Unknown PCP - General Internal Medicine 06/30/25
== END 2025-08-16 11:23 | disposition home or self-care (01) ==
LOC: HO.HID 10:52
PROVIDERS: PCP Internal Medicine; Visit Provider Internal Medicine
DX: R78.81 Bacteremia (principal); B95.62 Methicillin resistant Staphylococcus aureus infection as the cause of diseases classified elsewhere
CPT/HCPCS: 99213

== ENCOUNTER → 2025-08-16 10:52 | Outpatient (BNVA) | payer OTHER, SELFPAY | PROVIDERS: PCP Internal Medicine; Visit Provider Internal Medicine | DX: R78.81 Bacteremia (principal); B95.62 Methicillin resistant Staphylococcus aureus infection as the cause of diseases classified elsewhere | CPT/HCPCS: 99212 ==

== ENCOUNTER 2025-08-23 11:42 | Inpatient (IN) | payer OTHER, SELFPAY ==
--- OUTSIDE RECORDS SUMMARY | 2025-08-21 09:33 | XMS_ITS | Encounter Summary ---
Author Organization [facility] Address [address] [place] [address] Care Team Providers Care Chief Console Operator Name Role Phone Physician, Pcp Unknown Primary Care Provider Talia vailable Reason for Visit * Reason Comments Back Pain * Auth/Cert (Routine) Specialty Diagnoses / Procedures Referred By Tanner blood Referred To Contact Diagnoses Arm ulcer, with fat layer exposed Opiate abuse, continuous (CMS/[facility] V24, CMS/[facility] V28) Cellulitis of upper extremity, unspecified laterality Septic arthritis of lumbar spine ([facility] V24) Procedures MS COMPREHENSIVE AUDIOMETRY THRESHOLD EVALUATION AND SPEECH RECOGNITION / Alejandro Castro MD [address] [place] [address] Phone: tel: fax: [facility] [address] [place] [phone] Phone: tel: Referral ID Status Reason Start Date Expiration Date Visits Re quested Visits Authorized [id number] 1 1 Encounter Details Date Type Department Care Team (Latest Contact Info) Description 08/21/2025 9:33 AM EST - 08/23/2025 4:56 AM EST Hospital Encounter [facility] [address] [place] [id number] Candi Donaldson MD [address], [place] [phone] Alejandro Castro MD [address] [place] [address] Maged Cisneros MD [address] [place] [phone] Septic arthritis of lumbar spine ([facility] V24) (Primary Dx); Arm ulcer, with fat layer exposed; Cellulitis of upper extremity, unspecified laterality; Opiate abuse, continuous ([facility] V24, [facility] V28) Discharge Disposition: Left Against Medical Advice Social History Tobacco Use Types Packs/Day Years Used Date Smoking Tobacco: Never Smokeless Tobacco: Never Housing Instability Answer Date Recorde d Are you worried that in the next 2 months you may not have stable housing? No 08/21/2025 Food Access & Nutrition Answer Date Rec orded Do you have access to a vari ety of food including fruits and vegetables? Yes 08/21/2025 Health Literacy Answer Date Recorded How often do you need to hav e someone help you when you read instructions, pamphlets, or other written material from your doctor or pharmacy? Never 08/21/2025 Caregiver: How often do you need to have someone help you when you read instructions, pamphlets, or other written material from your doctor or pharmacy? Not on file 08/21/2025 Financial Risk Answer Date Recorded How hard is it for you to pa y for the very basics like food, housing, medical care, and air conditioning / heating? Not very hard 08/21/2025 Transportation Answer Date Recorded Has the lack of transportati on kept you from meetings, work, or from getting things needed for daily living? No Has the lack of transportati on kept you from medical appointments or from getting medications? No 08/21/2025 Social Isolation Answer Date Recorded How often do you feel lonely or isolated from th ose around you? Never 08/21/2025 Food Risk Answer Date Recorded Within the past 12 months we worried whether our food would run out before we got money to buy more. Never true 08/21/2025 Within the past 12 months th e food we bought just didn't last and we didn't have money to get more. Never true 08/21/2025 Dependent Care Answer Date Recorded Do you need help finding or paying for care for your loved ones. For example, child care centre manager or elderly care for an older adult? No 08/21/2025 Education Answer Date Recorded Do you think completing more education or training, like finishing a GED, going to college, or learning a trade, would be helpful for you? No 08/21/2025 Employment and Income Answer Date Recor ded During the last four weeks, have you been actively looking for work? No 08/21/2025 Living Situation Answer Date Recorded What is your living situation? Unrecognized valu e 08/21/2025 Interpersonal Safety Answer Date Record ed Physical Abuse Unrecognized value 08/21/2025 Verbal Abuse Unrecognized value 08/21/2025 Comments No Sex and Gender Information Value Date Recorded Sex Assigned at Female 08/21/2025 4:57 PM EST Legal Sex Female 9:04 AM EST Gender Identity Female 08/21/2025 4:57 PM EST Sexual Orientation Not on file documented as of this encounter Last Filed Vital Signs Vital Sign Reading Time Taken Comments Blood Pressure 153/89 08/22/2025 8:47 PM EST Pulse 68 08/22/2025 8:47 PM EST Temperature 36.2 C (97.1 F) 08/22/2025 8:47 PM EST Respiratory Rate 16 08/22/2025 8:47 PM EST Oxygen Saturation 100% 08/22/2025 8:47 PM EST Inhaled Oxygen Concentration - - Weight 58.1 kg (128 lb) 08/21/2025 9:20 AM EST Height 152.4 cm (5') 08/21/2025 9:20 AM EST Body Mass Index 25 08/21/2025 9:20 AM EST documented in this encounter Functional Status * Calculated C-SSRS Risk Score (Lifetime/Recent) Answer Date of Assessment Author No Risk Indicated 08/21/2025 9:22 AM EST Niecy Amaya RN * [place] Suicide Severity Rating Scale (Screener/Recent Self-Report) Question Answer Date of Assessment Author 1. Wish to be (Past 1 Month) No 025 9:22 AM Niecy Mcclendon RN 2. Non-Specific Active Suici tera Thoughts (Past 1 Month) No 08/21/2025 9:22 AM Clark Mcclendon RN 6. Suicidal Behavior (Lifetime) No 9:22 AM Niecy Mcclendon RN documented as of this encounter Medications at Time of Discharge ferrous sulfate 325 mg (65 mg elemental iron) tablet Take 1 tablet (325 mg total) by mouth 2 (two) times a day. 07/11/2025 07/11/2026 gabapentin (NEURONTIN) 100 mg capsule Take 1 capsule (100 mg total) by mouth every 8 (eight) hours. 07/11/2025 07/11/2026 methadone (DOLOPHINE) 10 mg tabletIndication s:Septic arthritis of lumbar spine (CMS/HCC V24) Take 5 tablets (50 mg total) by mouth 1 (one) time each day. Max Daily Amount: 50 mg 07/17/2025 sertraline (ZOLOFT) 25 mg tablet Take 1 tablet (25 mg total) by mouth 1 (one) time each day. 07/12/2025 07/12/2026 traZODone (DESYREL) 50 mg tablet Take 0.5 tablets (25 mg total) by mouth at bedtime as needed for sleep. 07/12/2025 vancomycin 750 mg in sodium chloride 0.9 % 250 mL IVPB Infuse 750 mg into a venous catheter every 12 (twelve) hours for 101 doses. 07/11/2025 08/31/2025 documented as of this encounter Discharge Disposition Disposition Code Departure Means Destination Comment s Left Against Medical Advice documented in this encounter Progress Notes * Nataliya Ramírez RN - 08/23/2025 2:59 AM EST At 0240 RN entered pt room, pt was found sleeping with a gold metal container with white powder inside along with drug paraphernalia. Respirations were assessed, pt was stable. RN left room and called house sup, security, and provider to bedside. Pt was woken by house sup and pt hid drug products. Pt verified she was in possession of drugs. House sup and ANM explained to pt that she is not able to have those products in the hospital and must give them to security in order to continue treatment.Pt refused to hand over drugs. AMA forms were brought to bedside and security explained that personal products will be held until pt was discharged if pt handed over the drugs. Pt continued to refuse and requested to leave AMA. Covering Raquel provider came to bedside and explained risks of leaving against medical advice. Pt signed AMA paperwork. House sup removed right chest tunneled PICC, measuring 28cm on removal. Pt verified she understood the risks of leaving AMA. Pt belongings were gatheredby pt and she was escorted out by security. * Maged Cisneros MD - 08/22/2025 4:57 PM EST Images from the original note were not included. RAQUEL PROGRESS NOTE Date: 08/22/2025 Author: Maged Cisneros MD Patient ID: Kathy Ballard is a 50 y.o. female : 1975 MR#: [id number] SUBJECTIVE Follow up: septic arthritis lumbar spine on IV abx(interrupted), OUD EMR reviewed. Events noted Patient evaluated by wound care, addiction medicine, and IV team Alteplase needed for poor blood return from IV line. Denies any significant withdrawal symptoms. No fever/chills Allergies Benadryl allergy decongestant, Hydroxyzine, Diphenhydramine hcl, Risperidone, and Trazodone Current Medications: MEDSSCHEDULED[1] MEDSCONTINUOUS[2] MEDSPRN[3] OBJECTIVE Vitals: 08/22/25 0431 08/22/25 0654 08/22/25 0800 08/22/25 1458 BP: 108/78 (!) 133/100 (!) 140/91 132/88 BP Location: Right arm Right arm Patient Position: Sitting Sitting Pulse: 74 82 68 Resp: 15 12 Temp: 36.7 ??C (98.1 ??F) 36.3 ??C (97.4 ??F) TempSrc: Temporal SpO2: 100% 99% Weight: Height: Vital Signs: as documented above General: No acute distress HEENT/Neck: Moist mucosa, no icterus, supple Thorax: No accessory muscles use. Cardiac: Regular. Not tachycardic Abdomen: Not distended Mental Status: Awake, alert, and oriented x3 Neurological: No localizing weakness. No tremors. Patient observed ambulating in room without difficulty. : Deferred Skin: Media pictures provided by wound care service of patient's left arm and bilateral lower extremities noted. Patient fully clothed with long sleeves and pants and did not reevaluate after mentioned wounds.. LABS HEMATOLOGY Lab Results Component Value Date WBC 3.5 (L) 08/22/2025 HGB 9.9 (L) 08/22/2025 HCT 32.2 (L) 08/22/2025 MCV 83.0 08/22/2025 PLT 234 08/22/2025 CHEMISTRY Lab Results Component Value Date GLUCOSE 97 08/22/2025 NA 143 08/22/2025 K 4.0 08/22/2025 CO2 26 08/22/2025 CL 108 08/22/2025 BUN 26 (H) 08/22/2025 CREATININE 0.88 08/22/2025 EGFR 81 08/22/2025 CALCIUM 8.4 (L) 08/22/2025 MG 2.2 07/08/2025 ANIONGAP 9 08/22/2025 Imaging: XR Chest 2 Views Narrative: HISTORY: The patient is a 50-year-old female with infection has undergone bedside placement of a peripherally inserted central catheter (PICC line). There and lateral radiographs of the chest demonstrate the presence of a small bore central venous catheter which appears to enter the vascular system via the left subclavian vein. The tip is in good position at the midportion of the superior vena cava. The bony structures are of normal appearance. The cardiac and mediastinal contours are within normal limits. The lungs and costophrenic angles are clear there is no pneumothorax. Bilateral breast implants are again seen. Impression: No acute pulmonary disease. Although the provided history states that the patient has undergone placement of a PICC line, the visualized central venous catheter appears to enter the vascular system via the right subclavian vein, and not via a peripheral vein. The catheter tip is in goodposition at the midportion of the superior vena cava. Code 69150 -------- FINAL REPORT -------- Dictated By: Keron Delacruz Dictated Date: 08/21/2025 11:34 ET Assigned Physician: Keron Delacruz Reviewed and Electronically Signed By: Keron Delacruz Signed Date: 08/21/2025 12:24 ET Workstation ID: [id number] Transcribed By: Self Edit Transcribed Date: 08/21/2025 11:34 ET ASSESSMENT & PLAN Septic Arthritis of the Lumbar Spine Bacteremia Interrupted antibiotic treatment. Malfunctioning IV line Patient previously diagnosed bacteremia in the setting of septic arthritis of lumbar spine. Neurosurgical intervention was not indicated TTE was previous performed without evidence of vegetation. Infectious disease apparently was involved and recommended IV vancomycin with end of treatment 08/30/2025. Given her IV drug use history she was transferred to a rehab facility for continuation/completion of aforementioned antibiotics. Appears treatment was interrupted as patient had to leave facility to attend to an alleged family emergency. Antibiotics were continued. Alteplase was given as line was having poor blood return. Cellulitis wound to the right forearm in the setting of ongoing intravenous drug use. Antibiotic coverage was broadened with the addition of ceftriaxone. Patient seen by wound care service today. See wound carenote for details. Opioid Use Disorder Longstanding history of opioid use disorder previously maintained on methadone Hepatitis C Tested positive for hepatitis C virus during prior hospitalization with a viral load of 844,000 Infectious disease has previously discussed treatment options and was recommended to follow-up outpatient Anxiety/Depression Patient on zolpidem as needed for insomnia DISPOSITION Continued on IV abx. ID consulted for any changes antibiotic therapy. Back to facility for continued tx 08/23? [1] acetaminophen, 1,000 mg, oral, q6h YESENIA cefTRIAXone, 1 g, intravenous, q24h enoxaparin, 40 mg, subcutaneous, q24h YESENIA ferrous sulfate, 325 mg, oral, BID gabapentin, 100 mg, oral, q8h YESENIA lidocaine, 1 patch, Topical, Daily [START ON 08/23/2025] methadone, 20 mg, oral, Daily [START ON 08/23/2025] methadone, 40 mg, oral, Daily polyetheylene glycol, 17 g, oral, Daily sodium chloride, 10 mL, intravenous, BID vancomycin, 750 mg, intravenous, q12h [2] [3] PRN medications: bisacodyL, naloxone, ondansetron (ZOFRAN-ODT) disintegrating tablet OR ondansetron, oxyCODONE, oxyCODONE, [COMPLETED] Insert peripheral IV AND Maintain IV access AND [COMPLETED] Saline lock IV AND sodium chloride AND sodium chloride, zolpidem ARDA * Adonis Mckeon - 08/22/2025 2:22 PM EST Speech Assistant Note I met with the pt in their room. She was sitting in bed and very pleasant. We had a chance to talk about how she has been since the last time she was in [facility]. She reported she had went to a rehab facility in [place] and left because her child was ill. She reported she is willing to go back to finish the treatment. She also talked about her using and wounds. She reports that she injects around her wounds, then talked about how they are not healing. I explained to her that the wounds could possibly not be healing because of the contents in the drug supply she is using. We talked about how dealers are adding things like Xylazine, Metatomidine, and Procaine to the supply. We discussed how abstaining from using would help he heal. I will continue to follow up and support the pt while in our care. Adonis Mckeon Certified Speech Assistant [address] [place] [address] Speech Assistant Office [address] [place] [address] Medical Office - Speech Assistant Office - Addiction Office Rm [id number] [email or web address] * Monik Diaz RN - 08/22/2025 10:54 AM EST Images from the original note were not included. Wound Care Initial Consult Visit Date: 08/22/2025 Patient Name: Kathy Ballard Date of : 1975 Reason for Consult: Wound RN Consult received to assess bilateral lower arms and recommend topical treatment. Wound History: Patient admits to active heroin/ cocaine IV drug use and injects in periphery of wound. She states it is possible drugs also contain xalaxine. Nutritional Status: Pertinent Labs: Albumin Date Value Ref Range Status 08/22/2025 3.7 3.2 - 5.0 g/dL Final Albumin, Serum Date Value Ref Range Status 07/06/2025 2.7 (L) 2.9 - 4.1 g/dL Final WBC Date Value Ref Range Status 08/22/2025 3.5 (L) 4.8 - 10.8 K/mcL Final WBC, Urine Date Value Ref Range Status 08/21/2025 10 (H) 0 - 4 /HPF Final Wound Assessment: Wound Other (comment) 07/01/25 Arm Anterior;Distal;Lower;Right (Active) Wound Image 08/22/25954 Wound Bed Tissue Assessment Kidder;Yellow;Bleeding 08/22/25954 Karley-Wound Assessment Scarred 08/22/25954 Wound Length (cm) 4.5 cm 08/22/25954 Wound Width (cm) 3 cm 08/22/25954 Wound Surface Area (cm^2) 10.6 cm^2 08/22/25954 Wound Depth (cm) 0.2 cm 08/22/25954 Wound Volume (cm^3) 1.414 cm^3 08/22/25954 Wound Healing % -621 08/22/25954 Treatments Cleansed 08/22/25954 Dressing Honey;Xeroform;Foam 08/22/25954 Dressing Changed Changed 08/22/25954 Dressing Status Clean;Dry;Intact 08/22/25 0506 State of Healing Non-healing 08/22/25954 Wound Other (comment) 07/01/25 Arm Anterior;Left;Lower;Distal (Active) Wound Image 08/22/25955 Wound Bed Tissue Assessment Kidder;Yellow;Bleeding 08/22/25 100 Karley-Wound Assessment Scarred 08/22/251002 Wound Length (cm) 4.5 cm 08/22/25955 Wound Width (cm) 3.5 cm 08/22/25955 Wound Surface Area (cm^2) 12.37 cm^2 08/22/25955 Wound Depth (cm) 0.2 cm 08/22/25955 Wound Volume (cm^3) 1.649 cm^3 08/22/25955 Wound Healing % -215 08/22/25955 Dressing Honey;Xeroform;Foam 08/22/25 1003 Dressing Changed New 08/22/25 100 State of Healing Non-healing 08/22/25 100 Wound Other (comment) 07/01/25 Arm Anterior;Left;Lower;Proximal (Active) Wound Image 08/22/25 09 Wound Bed Tissue Assessment Black 08/22/25956 Wound Length (cm) 3 cm 08/22/25 09 Wound Width (cm) 0.8 cm 08/22/25 09 Wound Surface Area (cm^2) 1.88 cm^2 08/22/25 09 Wound Depth (cm) 0.1 cm 08/22/25 09 Wound Volume (cm^3) 0.126 cm^3 08/22/25 09 Wound Healing % 26 08/22/25 0956 Dressing Foam 08/22/25956 Dressing Changed New 08/22/25956 Support Surface: not at risk. Wound Summary Assessment: Bilateral lower arms with chronic wounds r/t active IVDU. Wound with friable pink and yellow slough tissue and scar tissue. Patient denies pain and allow through scrubbing of wound. There is no redness in surrounding skin. She consents to making appointment at wound clinicfor follow up. She stated my family is on their way and I do not want them to see my wounds as they don't know about my drug use Wound Plan: Wounds were cleansed with NSS, apply medihoney, adaptic, lg mepilex. Change every otherday. Education: Wound clinic appointment scheduled on at 8 AM with Demario BURKS. 08/22/2025 10:54 AM EST * Karley Calderón LCSW - 08/22/2025 10:29 AM EST 08/22/25 1027 Initial Transition Plan Initial Transition Plan Home Back up Transition Plan Back up Transition plan [facility] Facility ED Transition Plan ED Transition Plan Back to SNF Discharge Planning Living Arrangements Spouse/significant other;Children Type of Residence Private residence Assistive Devices None Support Systems Spouse/significant other;Children;Community Medication Coverage Has Med Coverage Under Insurance Plan Yes Medication Affordability No concerns related to payment for meds Anticipated Discharge Needs Discipline following for SNF placement Director [employer] Informed Choice Informed Choice Given? Yes Transportation Transportation at discharge Ambulance Final Discharge Disposition [facility] Facility Time Spent Time Spent (minutes) 20 minutes Sw met with the pt at the bedside to confirm demographics pt is not no O2 in the home no use of DME preferred [facility] is [facility] [address] sw was consulted due to pos tox screen pt states that she was using before admission pt was at [facility] she left AMA she was there from 07/22-08/19 pt states that she left because her daughter was sick pt is willing to retrun if further IV ABX is needed sw will continue to follow for d/c planning * Les Joiner RN - 08/22/2025 10:12 AM EST Assessment of tunneled piccline single lumen from [facility] IR department. Pt was currently staying in [place] rehab for antibiotic treatment. Dressing was still on from 08/10/2025 .12 days over do to be changed. Line also has no blood return after multiple pulsatile flushes and cap change. 3 sutures also remain in patient that most likely should be removed . 7 days post insertion of picc line. sutures should be removed. Dr. Cisneros aware of current issues. Dressing changed and new cap applied. Will continue to follow. * Marylou Gaston RN - 08/21/2025 2:31 PM EST ED RN HANDOFF (All Porter Below Must Be Completed) Reason/Diagnosis for Admission: Septic arthritis of lumbar spine Type of Admission: [x] Medsurg, [] Telemetry Already in a Hospital Bed: [] Yes / [x] No Room Considerations/Precautions (ex: fever, diarrhea, or any infectious concerns): [] Yes / [x] No Press Machine Feeder: [] Yes / [x] No If YES, Cardiac Rhythm: [] NSR, [] SB, [] ST, [] A-FIB, [] A-Flutter, [] Pacemaker, [] 1st Degree HB, [] 2nd Degree HB, [] 3rd Degree HB Reason for Press Machine Feeder: O2 []Yes /[x]No If YES, how many Liters: VS: Visit Vitals BP (!) 141/93 (BP Location: Left arm, Patient Position: Sitting) Pulse 83 Temp 36.9 ??C (98.4 ??F) (Oral) Resp 17 Ht 1.524 m (60 ) Wt 58.1 kg (128 lb) SpO2 100% BMI 25.00 kg/m?? OB Status Premenopausal Smoking Status Never BSA 1.54 m?? Current Mental Status: A/O x [x]4, []3, []2, []1 IV Access: [x] Yes / [] No Field IV present: [] Yes / [x] No Hx of Violence: [] Yes / [x] No / [] Unknown Current Ambulation Status: Independent Fall Risk:[] Yes / [x] No Yellow Bracelet Applied [] Yes / [x] No Yellow Socks Applied [] Yes / [x] No Patient Belongings inventoried and BL completed: [x] Yes / [] No Patient belongings stored in the security closet: [] Yes (If Yes please supply Security bag #): [x] No Patient Medications stored in Pharmacy: [] Yes (If Yes please supply Medication Security bag #): [x] No ED Summary of Care: Pt comes in with known spinal infection and lower back pain, wants to finish IVabx. Pt has a PICC line placed from prior visit, xray confirmed placement. Pt has vancomycin running per NOV. * Joyce Brand RN - 08/21/2025 9:17 AM EST States she was admitted on IV abx, reports spinal infection but left AMA 3 days ago. Reports she isback because she wants to finish the tx. C/o lower back pain. Ambulatory to ED, a/o x4. Has R subclavian central line in place upon arrival. * Candi Donaldson MD - 08/21/2025 9:16 AM EST Images from the original note were not included. HPI Chief Complaint Patient presents with Back Pain Patient with history, per discharge summary 07/16/2025, of IV drug use, MDD, ADALID, Hep C admitted atthat time for septic arthritis of lumbar spine, started on methadone per addiction consult, treatedwith IV abx and PICC placed with plan to discharge to SNF, subsequently leaving AGAINST MEDICAL ADVICE with PICC removed as well as ED note from [facility] 08/02/2025 patient recently treated for L4/L5 left facet infection, MRSA bacteremia, returning to ED for discharge instructions for her correction, reporting abnormal uterine bleeding but declining additional evaluation with noted improved hemoglobin presents saying that she has had worsening pain in the left side of her back without any other new related symptoms, had a central line placed at [facility] August 03, has been taking IV vancomycin at rehab since then but left 2 days ago because she was anxious that her daughter was sick and felt that her anxiety was not being treated sufficiently. She states that she is supposed to be on the vancomycin until early September. Patient notes that they were giving her Ambien but not Ativan and thatsavanna stopped Zoloft because it makes her heart beat fast and is using heroin to treat her back pain.Patient denies urinary symptoms, nausea, vomiting, abdominal pain, weakness or numbness in lower extremities, difficulty walking, fevers. She notes that she has had wounds on both of her arms for robert hs that are not healing, has been injecting in that area, last used heroin today. Patient also notes that she has had runny nose, cough, and headaches for last 3 days, headache is currently over her forehead, feels like migraines but less severe than usual. Patient also notes that she has had some pain around the central line but the area is not swollen or red and she has not noticed any fluid around it. She states the pain is mostly resolved. History provided by: Patient and medical records historic interpreter used: No No data recorded Patient History Medical History[1] Surgical History[2] Family History[3] Social History Tobacco Use Smoking status: Never Smokeless tobacco: Never Substance Use Topics Alcohol use: Not on file Drug use: Not on file Review of Systems Review of Systems Physical Exam ED Triage Vitals [08/21/25 0920] Temp Heart Rate Resp BP 36.9 ??C (98.4 ??F) 88 20 (!) 154/106 SpO2 Temp Source Heart Rate Source Patient Position 100 % Oral -- Sitting BP Location FiO2 (%) Right arm -- Physical Exam Vitals and nursing note reviewed. Constitutional: General: She is not in acute distress. Appearance: Normal appearance. She is not ill-appearing. Cardiovascular: Rate and Rhythm: Normal rate and regular rhythm. Heart sounds: Normal heart sounds. Pulmonary: Effort: Pulmonary effort is normal. Breath sounds: Normal breath sounds. Abdominal: Palpations: Abdomen is soft. Tenderness: There is no abdominal tenderness. Musculoskeletal: General: No tenderness. Back: Right lower leg: No edema. Left lower leg: No edema. Comments: No bony tenderness left knee, has full ROM, no edema, erythema Some tenderness to popliteal fossa Skin: Findings: Wound present. No erythema. Comments: Two ulcerating lesions to bilateral distal forearms approx 5cm x 3 cm One thin linear ulcerating lesion to left more proximal forearm All hemostatic, moist but without active drainage, mild surrounding erythema, no red streaking Neurological: Mental Status: She is alert. Sensory: Sensation is intact. Motor: Motor function is intact. ED Course & MDM Medical Decision Making Ddx: Non-healing ulcers, IVDU, OM, bacteremia, other spinal infection, rodas's cyst, MSK, less likely septic arthritis of knee, DVT, ACS, line infection Patient is well-appearing with vitals hypertensive to 154/106 and otherwise WNL on RA on arrival and normal cardiopulmonary and abdominal exams, tenderness throughout left side of lumbar back from spine to hip, intact strength and sensation of BLE, left knee normal appearing with some mild tenderness to popliteal fossa, no erythema or edema to LLE, no tenderness to left calf. Will obtain EKG, trop, EtOH, UDS UA. Patient is pending CXR, basic labs, bcx, LA ordered prior to evaluation. Will treatwith analgesia. Did consider new spinal imaging however patient has no new symptoms, reassuring vitals so do not feel this is indicated at this time. Discussed plan will depend on labs, other results, given she has intact line may be able to discharge with ongoing outpatient IV abx. Will have wounds cleaned and dressed by RN. Patient may need admission at least for wound care. Amount and/or Complexity of Data Reviewed External Data Reviewed: notes. Labs: ordered. Decision-making details documented in ED Course. Radiology: ordered and independent interpretation performed. Decision-making details documented in ED Course. ECG/medicine tests: ordered and independent interpretation performed. Decision- making details documented in ED Course. Risk Decision regarding hospitalization. Diagnosis or treatment significantly limited by social determinants of health. ED Course as of 08/21/251910Aug 21, 2025 1218 HCG, Ur POC: Negative [RG] 1218 Ethanol Level: <3 Negative [RG] 1218 TROPONIN I, HIGH SENSITIVITY: 4 WNL, will repeat [RG] 1218 Comprehensive metabolic panel(!) WNL [RG] 1218 Urinalysis with reflex microscopic ([id number])(!) Unlikely infection [RG] 1218 Lactate, Whole Blood: 0.8 WNL [RG] 1218 Auto WBC: 5.8 No leukocytosis [RG] 1218 Hemoglobin(!): 11.0 Mild anemia to 11, improved from prior [RG] 1219 12-Lead ECG 08/21/2025 11:06:43 on my read normal sinus rhythm, regular, rate 63, normal intervals, no RUDDY/D, no TWI, compared to 04/15/2020 was tachycardic to 107, no other significant change [RG] 1223 Hospitalist consult began [RG] 1242 XR Chest 2 Views On my read no consolidations, effusions, or edema read by radiology as IMPRESSION: No acute pulmonary disease. Although the provided history states that the patient has undergone placement of a PICC line, the visualized central venous catheter appears to enter the vascular system via the right subclavian vein, and not via a peripheral vein. The catheter tip is in good position atthe midportion of the superior vena cava. [RG] 1242 Vancomycin level ordered per hospitalist request [RG] 1426 TROPONIN I, HIGH SENSITIVITY: 4 WNL [RG] 1426 Patient admitted [RG] ED Course User Index [RG] Candi Donaldson MD Clinical Impressions as of 08/21/251910 Septic arthritis of lumbar spine (CMS/HCC V24) Arm ulcer, with fat layer exposed Cellulitis of upper extremity, unspecified laterality Opiate abuse, continuous (CMS/HCC V24, CMS/HCC V28) Procedures Candi Donaldson MD 08/21/25 1028 [1] Past Medical History: Diagnosis Date Anemia Anxiety Depression Disease of thyroid gland [2] History reviewed. No pertinent surgical history. [3] No family history on file. Candi Donaldson MD 08/21/251918 documented in this encounter H&P Notes * Alejandro Castro MD - 08/21/2025 1:19 PM EST Images from the original note were not included. [facility]QU[facility] HISTORY AND PHYSICAL Please contact author [VITALIY Guaman] via [employer]. Patient: Kathy Ballard Admission Date/Time: 08/21/2025 9:33 AM : 1975 [50 y.o.] Patient's PCP: Pcp Unknown Physician Attending Provider: Candi Donaldson MD Chief Complaint Septic Arthritis of Lumbar Spine Ongoing Antibiotics History of Present Illness Kathy is a pleasant 50-year-old female with a past medical history to include OUD previously on methadone, recent hospitalization in the setting of MRSA bacteremia due to septic arthritis of L4-L5with surrounding cellulitis, anxiety/depression, history of hepatitis C, presenting to the emergency department today requesting ongoing IV antibiotics. She was in our facility from 07/02/2025 until 07/16/2025 when she ultimately left under patient directed discharge (AMA). After that [facility] a [facility] period time before placement at [facility] for ongoing antibiotics in the setting of septic arthritis. She was there up until she left again under patient directed discharge on 08/19/2025. She acknowledges that the facility was difficult to tolerate given the ongoing drug use there however she felt comfortable staying there for several weeks. She was in contact with her daughter who was becoming ill and for this reason she ultimately left the facility to go tend to her family. Since arriving back in the area, she has realized her daughter is not nearly as sick as she had reported and she understands the importance of taking care of her own health. She would like to continue IV antibiotics until completion and would be open to returning back to [facility]. She has had no methadone in the last 48 hours, has been using heroin/fentanyl as well as cocaine intravenously. She has noticed worsening wounds to the forearms at the sitesof injection. No fevers. On arrival at our facility, initial blood pressure was 154/106, heart rate of 88, respirations of 20, SpO2 100% on room air and a temperature of 36.9 ??C. She had labs obtained without significant leukocytosis or abnormal shift. Anemia with an H&H of 11 and 35 is seen. Electrolytes renal function liver function studies are generally reassuring. BUN is slightly elevated at 26 although creatinine is 0.6 and GFR is 83. A single troponin was within normal limits. Lactate is 0.8. UA showing someblood but no overwhelming evidence of infectious process. hCG is negative. Ethanol level is less than 3. Urine toxicology screen is ordered but not collected at this time. Blood cultures have been drawn and are pending. Chest x-ray shows a central venous catheter in the vascular system in the rightsubclavian vein in good position. There is no infiltrates identified. EKG shows no evidence of acute ischemia. Medicine has been requested for admission for ongoing antibiotics and further management. Review of Symptoms Review of Systems Constitutional: Negative for chills and fever. Respiratory: Negative for shortness of breath. Cardiovascular: Negative for chest pain. Gastrointestinal: Negative for constipation, diarrhea, nausea and vomiting. Genitourinary: Negative for frequency and urgency. Musculoskeletal: Negative for gait problem. Skin: Positive for color change and wound. Negative for rash. Neurological: Negative for syncope, weakness and headaches. Psychiatric/Behavioral: Negative for suicidal ideas. All other systems reviewed and are negative. Medical History Past Medical History Medical History[1] Past Surgical History Surgical History[2] Social History reports that she has never smoked. She has never used smokeless tobacco. Family History family history is not on file. Allergies is allergic to benadryl allergy decongestant, hydroxyzine, diphenhydramine hcl, risperidone, and trazodone. Home Medications Medications Ordered Prior to Encounter[3] Objective Vitals Visit Vitals BP (!) 141/93 (BP Location: Left arm, Patient Position: Sitting) Pulse 83 Temp 36.9 ??C (98.4 ??F) (Oral) Resp 17 Temp (24hrs), Av.9 ??C (98.4 ??F), Min:36.9 ??C (98.4 ??F), Max:36.9 ??C (98.4 ??F) Body mass index is 25 kg/m??. No results found for: PTWT , PTHT Physical Examination Physical Exam Vitals reviewed. Constitutional: General: She is not in acute distress. Appearance: She is not toxic-appearing. HENT: Head: Normocephalic and atraumatic. Nose: Nose normal. Mouth/Throat: Mouth: Mucous membranes are moist. Pharynx: Oropharynx is clear. Eyes: Extraocular Movements: Extraocular movements intact. Pupils: Pupils are equal, round, and reactive to light. Cardiovascular: Rate and Rhythm: Normal rate and regular rhythm. Heart sounds: No murmur heard. No friction rub. No gallop. Pulmonary: Effort: Pulmonary effort is normal. No respiratory distress. Breath sounds: Normal breath sounds. Abdominal: General: There is no distension. Palpations: Abdomen is soft. Tenderness: There is no abdominal tenderness. There is no guarding or rebound. Musculoskeletal: General: Normal range of motion. Cervical back: Normal range of motion and neck supple. No rigidity. Skin: General: Skin is warm and dry. Comments: Ulcerating wound to the dorsal aspect of the right forearm with some surrounding erythemaand warmth Neurological: Mental Status: She is alert and oriented to person, place, and time. ECG: Was ECG Performed? Yes . Sinus Rhythm? Yes. Signs of acute ischemia? No Further Interpretation: EKG showing normal sinus rhythm at 63 bpm, no significant ST segment changes or T wave inversions identified, QTc is 427 ms LAB RESULTS (most recent) HEMATOLOGY Lab Results Component Value Date WBC 5.8 08/21/2025 HGB 11.0 (L) 08/21/2025 HCT 35.0 08/21/2025 MCV 82.2 08/21/2025 PLT 282 08/21/2025 CHEMISTRY Lab Results Component Value Date GLUCOSE 78 08/21/2025 NA 139 08/21/2025 K 3.8 08/21/2025 CO2 26 08/21/2025 CL 102 08/21/2025 BUN 26 (H) 08/21/2025 CREATININE 0.86 08/21/2025 EGFR 83 08/21/2025 CALCIUM 9.3 08/21/2025 MG 2.2 07/08/2025 ANIONGAP 11 08/21/2025 Radiology XR Chest 2 Views Final Result No acute pulmonary disease. Although the provided history states that the patient has undergone placement of a PICC line, the visualized central venous catheter appears to enter the vascular system via the right subclavian vein, and not via a peripheral vein. The catheter tip is in good position atthe midportion of the superior vena cava. Code 53099 -------- FINAL REPORT -------- Dictated By: Keron Delacruz Dictated Date: 08/21/2025 11:34 ET Assigned Physician: Keron Delacruz Reviewed and Electronically Signed By: Keron Delacruz Signed Date: 08/21/2025 12:24 ET Workstation ID: [id number] Transcribed By: Self Edit Transcribed Date: 08/21/2025 11:34 ET Assessment & Plan Septic Arthritis of the Lumbar Spine Bacteremia Kathy returns back to our facility for ongoing management of previously diagnosed bacteremia in the setting of septic arthritis of lumbar spine TTE was previous performed without evidence of vegetation Was previously recommended that she continue on vancomycin with a goal of 15-20 as a trough Was recommended that she undergo 8 weeks of IV antibiotic treatment Neurosurgery felt that there is no acute intervention required Does now present back without any new somatic complaints, appear to be tolerating treatment quite well Had left the rehabilitation facility to attend to family matters for a brief period of time Reported to leave 08/19/2025 but I see a 30 day RX for doxy on 08/16/2025 so timing might be a bit off End of treatment date was previously listed as 08/30, will discuss with infectious disease if this date needs to change given the short period of time without treatment We will continue vancomycin in the interim, pharmacy to dose Cellulitis He has a wound to the right forearm in the setting of ongoing intravenous drug use This appears to be worsening despite the use of vancomycin for treatment of bacteremia as listed above Will broaden coverage with ceftriaxone Will consult wound care nurse Opioid Use Disorder Longstanding history of opioid use disorder previously maintained on methadone During prior hospitalization we did transition briefly to buprenorphine product however ultimately returned back to methadone Has continued on methadone at rehabilitation facility per her report Dose of 50 mg has been ongoing for several weeks now There is stigmata of injection drug use on physical exam today Even without going through the process of dose verification, I would be comfortable continue methadone at 50 mg during current hospital course We will need to attempt to contact the home clinic to again help with guest dosing at [facility] if we plan to transition care Urine toxicology screen has been ordered and is currently awaiting collection Will consult with the addiction medicine team Appreciate input and recommendations Hepatitis C Tested positive for hepatitis C virus during prior hospitalization with a viral load of 844,000 Infectious disease has previously discussed treatment options and was recommended to follow-up outpatient Anxiety/Depression Has previously struggled with anxiety and certainly during hospitalizations Has listed allergy with angioedema listed as the reaction to hydroxyzine Will attempt to avoid benzos as best as possible May benefit from psychiatry consultation for recommendations Case discussed with my attending Dr Castro. Admission Checklist [x] Code status: Full Code - Confirmed [x] VTE Prophylaxis: Lovenox [x] Diet order on admission: Dietary Orders (From admission, onward) Start Ordered 08/21/[address] [facility]; General; Regular Diet effective now Question Answer Comment Location [facility] Diet Type (req) General General Diet Regular 08/21/25 1318 [x] Medication reconciliation Health Care proxy with phone number: Jossie Fung, Chart reviewed medication reviewed agree with plan of care as dictated above by Titus patientexamined reviewed discharge planning labs reviewed imaging reviewed discussed with the team and entire decison making was made by me discussed with team and documented by SINA. On discussion with the patient she basically left AMA secondary to her daughter being sick she got better came over here was requesting if could go back to [facility] has history of bacteremia and need IV antibiotics still 08/30 case management to follow tomorrow [1] Past Medical History: Diagnosis Date ??? Anemia ??? Anxiety ??? Depression ??? Disease of thyroid gland [2] History reviewed. No pertinent surgical history. [3] No current facility-administered medications on file prior to encounter. Current Outpatient Medications on File Prior to Encounter Medication Sig Dispense Refill ??? buprenorphine-naloxone (SUBOXONE) 2-0.5 [address] tablet [address] 1 tablet under the tongue 2 (two) times a day. After the medication is completely dissolved, take a large sip of water, swish it around teeth and gums, and swallow. Wait at least 1 hour before brushing teeth to avoid damage to your t eeth. Max Daily Amount: 2 tablets ??? ferrous sulfate 325 mg (65 mg elemental iron) tablet Take 1 tablet (325 mg total) by mouth 2 (two) times a day. ??? gabapentin (NEURONTIN) 100 mg capsule Take 1 capsule (100 mg total) by mouth every 8 (eight) hours. ??? methadone (DOLOPHINE) 10 mg tablet Take 5 tablets (50 mg total) by mouth 1 (one) time each day.Max Daily Amount: 50 mg ??? sertraline (ZOLOFT) 25 mg tablet Take 1 tablet (25 mg total) by mouth 1 (one) time each day. ??? traZODone (DESYREL) 50 mg tablet Take 0.5 tablets (25 mg total) by mouth at bedtime as needed for sleep. ??? vancomycin 750 mg in sodium chloride 0.9 % 250 mL IVPB Infuse 750 mg into a venous catheter every 12 (twelve) hours for 101 doses. documented in this encounter Procedure Notes * Les Joiner RN - 08/22/2025 1:42 PM EST Cath randal instilled at 1145 am. Withdrawn at 120 pm. 5 cc withdrawn of blood then flushed with normal saline. New neutral connectorapplied line clamped and capped. 3 sutures removed. Order in computer from Dr Cisneros. New dressingapplied. Extra caps and neutral connectors given to patient to bring with her to rehab facility. Will continue to follow. documented in this encounter Consult Notes * Micheline Shah DO - 08/22/2025 9:47 AM ESTAssociated Order(s): IP CONSULT TO ADDICTION MEDICINE Images from the original note were not included. Kathy Elio 1975 [id number] Author: Micheline Shah DO DOS: 08/22/2025 Requesting Service: Hospitalist Service Chief Complaint: Septic arthritis of lumbar spine (CMS/[facility] V24) Reason for Consultation: Opioid use disorder and Cocaine use disorder Source of History: Patient and chart Subjective History of Present Illness: Kathy Ballard is a 50 y.o. female with a history of cocaine and opioid use disorders admitted for septic arthritis of lumbar spine. Patient is known to our service from previous admissions for same. Unfortunately patient self directed discharged on 07/02 and 07/16. She states that after she left [facility], she went to [facility] where she was then referred to [facility] for ongoing IV antibiotic treatment. She states she was there until 08/19 when she left to care for her sick daughter. She states she did not use while she was at [facility] despite people using around her, and only used when she left for a few days. States she used one half bundle of IV heroin/fentanyl and 0.5g of IV cocaine for 2 days. She denies nicotine, alcohol or other substance use. Her goals are to treat her infection and go for further [facility] treatment. [facility]ies: Allergies[1] Home Medications: Prior to Admission medications Medication Sig Start Date End Date Taking? Authorizing Provider ferrous sulfate 325 mg (65 mg elemental iron) tablet Take 1 tablet (325 mg total) by mouth 2 (two) times a day. 07/11/25 07/11/26 Prabhjot Neely MD gabapentin (NEURONTIN) 100 mg capsule Take 1 capsule (100 mg total) by mouth every 8 (eight) hours.07/11/25 07/11/26 Prabhjot Neely MD methadone (DOLOPHINE) 10 mg tablet Take 5 tablets (50 mg total) by mouth 1 (one) time each day. MaxDaily Amount: 50 mg 07/17/25 Sly Robbins MD sertraline (ZOLOFT) 25 mg tablet Take 1 tablet (25 mg total) by mouth 1 (one) time each day. 07/12/25 07/12/26 Prabhjot Neely MD traZODone (DESYREL) 50 mg tablet Take 0.5 tablets (25 mg total) by mouth at bedtime as needed for sleep. 07/12/25 08/11/25 Prabhjot Neely MD vancomycin 750 mg in sodium chloride 0.9 % 250 mL IVPB Infuse 750 mg into a venous catheter every 12 (twelve) hours for 101 doses. 07/11/25 08/31/25 Prabhjot Neely MD buprenorphine-naloxone (SUBOXONE) 2-0.5 mg [address] tablet [address] 1 tablet under the tongue 2 (two) times a day. After the medication is completely dissolved, take a large sip of water, swish it around teeth and gums, and swallow. Wait at least 1 hour before brushing teeth to avoid damage to your teeth. Max Daily Amount: 2 tablets 07/11/25 08/21/25 Prabhjot Neely MD Past Medical History: Medical History[2] Past Surgical History: Surgical History[3] Family History: Family History[4] Social History: Tobacco Use History[5] Social History Substance and Sexual Activity Alcohol Use None Social History Substance and Sexual Activity Drug Use Not on file Review of Systems Constitutional: Negative for chills and fever. Respiratory: Negative for shortness of breath. Cardiovascular: Negative for chest pain. Skin: Positive for wound. Psychiatric/Behavioral: The patient is nervous/anxious. Objective Last Recorded Vitals: Blood pressure (!) 140/91, pulse 82, temperature 36.7 ??C (98.1 ??F), resp. rate 15, height 1.524 m(60 ), weight 58.1 kg (128 lb), SpO2 100%. Physical Exam Gen: NAD HEENT: pupils normal, OP clear CV: RRR Pulm: CTA Musc: normal ROM Skin: Bilateral UE dressings intact. Neuro: Alert and oriented, No tremor Pysch: Mood and affect normal Labs: Results for orders placed or performed during the hospital encounter of 08/21/25 Culture blood Collection Time: 08/21/25 10:48 AM Specimen: Blood, Venous Result Value Ref Range Culture, Blood Culture in progress Culture blood Collection Time: 08/21/25 10:48 AM Specimen: Blood, Venous Result Value Ref Range Culture, Blood Culture in progress Lactate, with reflex Collection Time: 08/21/25 10:48 AM Result Value Ref Range LACTIC ACID 0.8 0.4 - 2.0 mmol/L Comprehensive metabolic panel Collection Time: 08/21/25 10:48 AM Result Value Ref Range Sodium 139 133 - 145 mmol/L Potassium 3.8 3.5 - 5.5 mmol/L Chloride 102 96 - 110 mmol/L CO2 26 21 - 32 mmol/L Anion Gap 11 3 - 11 Glucose 78 70 - 100 mg/dL BUN 26 (H) 5 - 25 mg/dL Creatinine 0.86 0.50 - 1.10 mg/dL eGFR 83 >=60 mL/min/1.73m2 BUN/Creatinine Ratio 30.2 Calcium 9.3 8.5 - 10.5 mg/dL AST (SGOT) 18 10 - 42 unit/L ALT (SGPT) 11 10 - 60 unit/L Alkaline Phosphatase 88 42 - 121 unit/L Total Protein 8.8 (H) 6.0 - 8.0 g/dL Albumin 4.4 3.2 - 5.0 g/dL Total Bilirubin 0.2 0.0 - 1.4 mg/dL CBC auto differential Collection Time: 08/21/25 10:48 AM Result Value Ref Range WBC 5.8 4.8 - 10.8 K/mcL RBC 4.30 3.80 - 4.80 M/mcL Hemoglobin 11.0 (L) 11.5 - 16.0 g/dL Hematocrit 35.0 35.0 - 47.0 % MCV 82.2 79.0 - 98.0 FL MCH 25.8 (L) 27.0 - 32.0 pcg MCHC 31.4 (L) 32.0 - 37.0 g/dL RDW 22.8 (H) 11.0 - 15.0 % Platelets 282 130 - 400 K/mcL MPV 10.0 7.0 - 11.0 FL NRBC 0.0 <1.0 % NRBC Absolute 0.00 <0.10 K/mcL Neutrophils Relative 65.7 % Lymphocytes Relative 23.8 % Monocytes Relative 7.2 % Eosinophils Relative 2.1 % Basophils Relative 0.9 % Immature Granulocytes Relative 0.3 % Neutrophils Absolute 3.82 1.50 - 7.00 K/mcL Lymphocytes Absolute 1.38 1.00 - 5.00 K/mcL Monocytes Absolute 0.42 0.20 - 1.00 K/mcL Eosinophils Absolute 0.12 0.00 - 0.50 K/mcL Basophils Absolute 0.05 0.00 - 0.20 K/mcL Immature Granulocytes Absolute 0.02 0.00 - 0.03 K/mcL Troponin I High Sensitivity Collection Time: 08/21/25 10:48 AM Result Value Ref Range High Sensitivity Troponin I 4 <=34 ng/L Ethanol Collection Time: 08/21/25 10:48 AM Result Value Ref Range Ethanol Level <3 0 - 10 mg/dL Vancomycin random Collection Time: 08/21/25 10:48 AM Result Value Ref Range Vancomycin Rm <3.0 mcg/mL Drug abuse screen 8a panel, urine Collection Time: 08/21/25 10:51 AM Result Value Ref Range Amphetamine Screen, Ur Negative Negative Barbiturate Screen, Ur Negative Negative Benzodiazepine Screen, Ur Negative Negative Cocaine Screen, Ur Positive (A) Negative Opiate Screen, Ur Positive (A) Negative Cannabinoid (THC) Screen, Ur Negative Negative Oxycodone Screen, Ur Negative Negative Fentanyl, Ur Positive (A) Negative Urinalysis with reflex microscopic Collection Time: 08/21/25 10:51 AM Result Value Ref Range Specific [place] Urine 1.027 1.003 - 1.030 pH, Urine 6.0 5.0 - 8.0 pH Leukocytes, Urine Negative Negative Nitrite, Urine Negative Negative Protein, Urine 30 (A) <=Trace mg/dL Glucose, Urine Negative Negative mg/dL Ketones, Urine Trace (A) Negative mg/dL Urobilinogen, Urine 1.0 0.2 - 1.0 mg/dL Bilirubin, Urine Negative Negative Blood, Urine Small (A) Negative RBC, Urine 10 (H) 0 - 4 /HPF WBC, Urine 10 (H) 0 - 4 /HPF Squamous Epithelial, Urine 40 0 - 60 /LPF Bacteria, Urine Negative Negative /HPF Hyaline Casts, Urine 10 (H) 0 - 3 /LPF [place] urine culture tube Collection Time: 08/21/25 10:51 AM Result Value Ref Range Extra Tube Hold for add-ons. POC , urine manually resulted Collection Time: 08/21/25 11:01 AM Result Value Ref Range HCG, Ur POC Negative Negative POC hCG Int QC Pass? Yes Yes 12-Lead ECG Collection Time: 08/21/25 11:06 AM Result Value Ref Range Ventricular Rate ECG 63 BPM Atrial Rate 63 BPM P-R Interval 94 ms QRS Duration 72 ms Q-T Interval 418 ms QTc 427 ms P Wave [place] 47 degrees R [place] -12 degrees ECG Interpretation Sinus rhythm with sinus arrhythmia with short MS Otherwise normal ECG When compared with ECG of 15-APR-2020 08:32, Vent. rate has decreased BY 44 BPM Troponin I High Sensitivity Collection Time: 08/21/25 1:13 PM Result Value Ref Range High Sensitivity Troponin I 4 <=34 ng/L Comprehensive metabolic panel Collection Time: 08/22/25 5:55 AM Result Value Ref Range Sodium 143 133 - 145 mmol/L Potassium 4.0 3.5 - 5.5 mmol/L Chloride 108 96 - 110 mmol/L CO2 26 21 - 32 mmol/L Anion Gap 9 3 - 11 Glucose 97 70 - 100 mg/dL BUN 26 (H) 5 - 25 mg/dL Creatinine 0.88 0.50 - 1.10 mg/dL eGFR 81 >=60 mL/min/1.73m2 BUN/Creatinine Ratio 29.5 Calcium 8.4 (L) 8.5 - 10.5 mg/dL AST (SGOT) 16 10 - 42 unit/L ALT (SGPT) 11 10 - 60 unit/L Alkaline Phosphatase 75 42 - 121 unit/L Total Protein 7.4 6.0 - 8.0 g/dL Albumin 3.7 3.2 - 5.0 g/dL Total Bilirubin 0.2 0.0 - 1.4 mg/dL CBC auto differential Collection Time: 08/22/25 5:55 AM Result Value Ref Range WBC 3.5 (L) 4.8 - 10.8 K/mcL RBC 3.90 3.80 - 4.80 M/mcL Hemoglobin 9.9 (L) 11.5 - 16.0 g/dL Hematocrit 32.2 (L) 35.0 - 47.0 % MCV 83.0 79.0 - 98.0 FL MCH 25.5 (L) 27.0 - 32.0 pcg MCHC 30.7 (L) 32.0 - 37.0 g/dL RDW 22.5 (H) 11.0 - 15.0 % Platelets 234 130 - 400 K/mcL MPV 9.5 7.0 - 11.0 FL NRBC 0.0 <1.0 % NRBC Absolute 0.00 <0.10 K/mcL Neutrophils Relative 62.7 % Lymphocytes Relative 22.8 % Monocytes Relative 9.7 % Eosinophils Relative 3.4 % Basophils Relative 1.1 % Immature Granulocytes Relative 0.3 % Neutrophils Absolute 2.20 1.50 - 7.00 K/mcL Lymphocytes Absolute 0.80 (L) 1.00 - 5.00 K/mcL Monocytes Absolute 0.34 0.20 - 1.00 K/mcL Eosinophils Absolute 0.12 0.00 - 0.50 K/mcL Basophils Absolute 0.04 0.00 - 0.20 K/mcL Immature Granulocytes Absolute 0.01 0.00 - 0.03 K/mcL Imaging: XR Chest 2 Views Narrative: HISTORY: The patient is a 50-year-old female with infection has undergone bedside placement of a peripherally inserted central catheter (PICC line). There and lateral radiographs of the chest demonstrate the presence of a small bore central venous catheter which appears to enter the vascular system via the left subclavian vein. The tip is in good position at the midportion of the superior vena cava. The bony structures are of normal appearance. The cardiac and mediastinal contours are within normal limits. The lungs and costophrenic angles are clear there is no pneumothorax. Bilateral breast implants are again seen. Impression: No acute pulmonary disease. Although the provided history states that the patient has undergone placement of a PICC line, the visualized central venous catheter appears to enter the vascular system via the right subclavian vein, and not via a peripheral vein. The catheter tip is in goodposition at the midportion of the superior vena cava. Code 97513 -------- FINAL REPORT -------- Dictated By: Keron Delacruz Dictated Date: 08/21/2025 11:34 ET Assigned Physician: Keron Delacruz Reviewed and Electronically Signed By: Keron Delacruz Signed Date: 08/21/2025 12:24 ET Workstation ID: [id number] Transcribed By: Self Edit Transcribed Date: 08/21/2025 11:34 ET Meds: MEDSSCHEDULED[6] MEDSCONTINUOUS[7] MEDSPRN[8] Assessment and Plan Kathy Ballard is a 50 y.o. female with a history of history of opioid use disorder admitted for septic arthritis of lumbar spine. Opioid Use Disorder Previously on methadone through [facility] and was continued on 50 mg on admission. Patient has been undecided with regards to her goals for MOUD. She understands the role of medication in recovery and is agreeable to optimizing dose so that she does not have cravings to use. Recommend increase methadone to 60 mg PO daily Zolpidem may increase [employer] depressant effects of opioid agonists such as methadone. Avoid concomitant use of opioid agonists and zolpidem when possible. If used, recommend limit dosage/duration. Patient would benefit from harm reduction counseling and supplies including fentanyl test strips and Narcan Team will continue to follow and engage with patient. Cocaine use Consider off label use of topiramate Patient may benefit from harm reduction supplies including fentanyl test strips and Narcan prior todischarge Principal Problem: Septic arthritis of lumbar spine ([facility] V24) Provider Attestation Electronically signed by Micheline Shah DO [1] Allergies Allergen Reactions Benadryl Allergy Decongestant Anaphylaxis Hydroxyzine Angioedema Diphenhydramine Hcl Unknown Risperidone Unknown Trazodone Unknown [2] Past Medical History: Diagnosis Date Anemia Anxiety Depression Disease of thyroid gland [3] History reviewed. No pertinent surgical history. [4] No family history on file. [5] Social History Tobacco Use Smoking Status Never Smokeless Tobacco Never [6] acetaminophen, 1,000 mg, oral, q6h YESENIA cefTRIAXone, 1 g, intravenous, q24h enoxaparin, 40 mg, subcutaneous, q24h YESENIA ferrous sulfate, 325 mg, oral, BID gabapentin, 100 mg, oral, q8h YESENIA lidocaine, 1 patch, Topical, Daily methadone, 40 mg, oral, Daily And methadone, 10 mg, oral, Daily polyetheylene glycol, 17 g, oral, Daily sodium chloride, 10 mL, intravenous, BID vancomycin, 750 mg, intravenous, q12h [7] [8] PRN medications: bisacodyL, naloxone, ondansetron (ZOFRAN-ODT) disintegrating tablet OR ondansetron, oxyCODONE, oxyCODONE, [COMPLETED] Insert peripheral IV AND Maintain IV access AND [COMPLETED] Saline lock IV AND sodium chloride AND sodium chloride, zolpidem documented in this encounter Plan of Treatment Upcoming Encounters Date Type Department Care Team (Late st Contact Info) Description 09/10/2025 8:00 AM EST Clinical Support [facility] [address] [place] [phone] Pending Results Name Type Priority Associated Diagnoses Date /Time Culture blood Microbiology STAT 5 10:48 AM EST Culture blood Microbiology STAT 5 10:48 AM EST documented as of this encounter Procedures Procedure Name Priority Date/Time Associated Diagnosis Comments VANCOMYCIN, TROUGH Timed 08/23/2025 12 :54 AM EST ECG ANNOTATED 08/23/2025 CBC WITH AUTO DIFFERENTIAL Routine 08/22/2025 5:55 AM EST CBC AND DIFFERENTIAL Routine 08/22/2025 5:55 AM EST COMPREHENSIVE METABOLIC PANEL Routine 08/22/2025 5:55 AM EST TROPONIN I HIGH SENSITIVITY STAT 08/21/2025 1:13 PM EST XR CHEST 2 VIEWS STAT 08/21/2025 11:2 0 AM EST ECG 12-LEAD STAT 08/21/2025 11:06 AM EST POC , URINE DIAGNOSTIC STAT 08/21/2025 11:01 AM EST URINALYSIS WITH REFLEX MICROSCOPIC STAT 08/21/2025 10:51 AM EST [facility]AS URINE CULTURE TUBE Routine 08/21/2025 10:51 AM EST URINALYSIS WITH REFLEX MICROSCOPIC STAT 08/21/2025 10:51 AM EST DRUG ABUSE SCREEN 8A PANEL, URINE STAT 08/21/2025 10:51 AM EST EXTRA TUBES Routine 08/21/2025 10:51 AM EST LACTATE, WITH REFLEX STAT 08/21/2025 10:48 AM EST TROPONIN I HIGH SENSITIVITY STAT 08/21/2025 10:48 AM EST CBC WITH AUTO DIFFERENTIAL STAT 08/21/2025 10:48 AM EST CULTURE BLOOD STAT 08/21/2025 10:48 AM EST CULTURE BLOOD STAT 08/21/2025 10:48 AM EST CBC AND DIFFERENTIAL STAT 08/21/2025 10:48 AM EST ETHANOL STAT 08/21/2025 10:48 AM EST VANCOMYCIN, RANDOM Add-On 08/21/2025 10 :48 AM EST COMPREHENSIVE METABOLIC PANEL STAT 08/21/2025 10:48 AM EST documented in this encounter Results * (ABNORMAL) Vancomycin, trough (08/23/2025 12:54 AM EST) [facility] Vancomycin Trough 7.8(L) 10.0 - 20.0 mcg/mL 08/23/2025 1:46 AM EST [facility] Blood Venous blood specimen / Unknown Venipuncture / Unknown 08/23/2025 12:54 AM EST 08/23/2025 1:04 AM EST Titus BURKS LAB BLOOD ORDERABLES Jimena l Result [facility] [address] [place] [address], * ECG-Annotated (08/23/2025) Provider Onbase MD ECG ORDERABLES Final Result * (ABNORMAL) CBC auto differential (08/22/2025 5:55 AM EST) [facility] WBC 3.5(L) 4.8 - 10.8 K/mcL LAB HEMETOLOGY METHOD 08/22/2025 6:54 AM EST [facility] RBC 3.90 3.80 - 4.80 M/mcL LAB HEMETOLOGY METHOD 08/22/2025 6:54 AM EST [facility] Hemoglobin 9.9(L) 11.5 - 16.0 g/dL LAB HEMETOLOGY METHOD 08/22/2025 6:54 AM EST [facility] Hematocrit 32.2(L) 35.0 - 47.0 % LAB HEMETOLOGY METHOD 08/22/2025 6:54 AM [facility] MCV 83.0 79.0 - 98.0 FL LAB HEMETOLOGY METHOD 08/22/2025 6:54 AM [facility] MCH 25.5(L) 27.0 - 32.0 pcg LAB HEMETOLOGY METHOD 08/22/2025 6:54 AM [facility] MCHC 30.7(L) 32.0 - 37.0 g/dL LAB HEMETOLOGY METHOD 08/22/2025 6:54 AM [facility] RDW 22.5(H) 11.0 - 15.0 % LAB HEMETOLOGY METHOD 08/22/2025 6:54 AM [facility] Platelets 234 130 - 400 K/mcL LAB HEMETOLOGY METHOD 08/22/2025 6:54 AM [facility] MPV 9.5 7.0 - 11.0 FL LAB HEMETOLOGY METHOD 08/22/2025 6:54 AM [facility] NRBC 0.0 <1.0 % LAB HEMETOLOGY METHOD 08/22/2025 6:54 AM [facility] NRBC Absolute 0.00 <0.10 K/mcL LAB HEMETOLOGY METHOD 08/22/2025 6:54 AM [facility] Neutrophils Relative 62.7 % LAB HEMETOLOGY METHOD 08/22/2025 6:54 AM [facility] Lymphocytes Relative 22.8 % LAB HEMETOLOGY METHOD 08/22/2025 6:54 AM [facility] Monocytes Relative 9.7 % LAB HEMETOLOGY METHOD 08/22/2025 6:54 AM [facility] Eosinophils Relative 3.4 % LAB HEMETOLOGY METHOD 08/22/2025 6:54 AM EST [facility] Basophils Relative 1.1 % LAB HEMETOLOGY METHOD 08/22/2025 6:54 AM EST [facility] Immature Granulocytes Relative 0.3 % LAB HEMETOLOGY METHOD 08/22/2025 6:54 AM [facility] Neutrophils Absolute 2.20 1.50 - 7.00 K/mcL LAB HEMETOLOGY METHOD 08/22/2025 6:54 AM EST [facility] Lymphocytes Absolute 0.80(L) 1.00 - 5.00 K/mcL LAB HEMETOLOGY METHOD 08/22/2025 6:54 AM EST [facility] Monocytes Absolute 0.34 0.20 - 1.00 K/mcL LAB HEMETOLOGY METHOD 08/22/2025 6:54 AM [facility] Eosinophils Absolute 0.12 0.00 - 0.50 K/mcL LAB HEMETOLOGY METHOD 08/22/2025 6:54 AM EST [facility] Basophils Absolute 0.04 0.00 - 0.20 K/mcL LAB HEMETOLOGY METHOD 08/22/2025 6:54 AM EST [facility] Immature Granulocytes Absolute 0.01 0.00 - 0.03 K/mcL LAB HEMETOLOGY METHOD 08/22/2025 6:54 AM [facility] Blood Venous blood specimen / Unknown Venipuncture / Unknown 08/22/2025 5:55 AM EST 08/22/2025 6:25 AM EST us Titus BURKS LAB BLOOD ORDERABLES Jimena tinoco Result [facility] [address] [place] [address], * (ABNORMAL) Comprehensive metabolic panel (08/22/2025 5:55 AM EST) Sodium 143 133 - 145 mmol/L 08/22/2025 7:48 AM [facility] Potassium 4.0 3.5 - 5.5 mmol/L 08/22/2025 7:48 AM [facility] Chloride 108 96 - 110 mmol/L 08/22/2025 7:48 AM [facility] CO2 26 21 - 32 mmol/L 08/22/2025 7:48 AM [facility] Anion Gap 9 3 - 11 08/22/2025 7:48 AM [facility] Glucose 97 70 - 100 mg/dL 08/22/2025 7:48 AM [facility] BUN 26(H) 5 - 25 mg/dL 08/22/2025 7:48 AM [facility] Creatinine 0.88 0.50 - 1.10 mg/dL 08/22/2025 7:48 AM [facility] eGFR 81 >=60 mL/min/1. 73m2 08/22/2025 7:48 AM [facility] Comment:Calculation based on the Chronic Kidney Disease Epidemiology Collaboration (CKD-EPI) equation refit without adjustment for race. BUN/Creatinine Ratio 29.5 08/22/2025 7:48 AM [facility] Calcium 8.4(L) 8.5 - 10.5 mg/dL 08/22/2025 7:48 AM [facility] AST (SGOT) 16 10 - 42 unit/L 08/22/2025 7:48 AM [facility] ALT (SGPT) 11 10 - 60 unit/L 08/22/2025 7:48 AM [facility] Alkaline Phosphatase 75 42 - 121 unit/L 08/22/2025 7:48 AM [facility] Total Protein 7.4 6.0 - 8.0 g/dL 08/22/2025 7:48 AM [facility] Albumin 3.7 3.2 - 5.0 g/dL 08/22/2025 7:48 AM EST [facility] Total Bilirubin 0.2 0.0 - 1.4 mg/dL 08/22/2025 7:48 AM EST [facility] Blood Venous blood specimen / Unknown Venipuncture / Unknown 08/22/2025 5:55 AM EST 08/22/2025 6:25 AM EST Titus BURKS LAB BLOOD ORDERABLES Jimena l Result Performing Organization Address City/[facility]/ZIP Co de Phone Number [facility] [address] [place] [address], [place] [phone] * Troponin I High Sensitivity (08/21/2025 1:13 PM EST) High Sensitivity Troponin I 4 <=34 ng/L 08/21/2025 1:56 PM EST [facility] Blood Venous blood specimen / Unknown Venipuncture / Unknown 08/21/2025 1:13 PM EST 08/21/2025 1:28 PM EST Candi Donaldson MD LAB BLOOD ORDERABLES Final Resul t Performing Organization Address [facility]/ZIP Co de Phone Number [facility] [address] [place] [address], [place] [phone] * XR Chest 2 Views (08/21/2025 11:20 AM EST) Anatomical Region Laterality Modality Body Radiographic Luz ging 08/21/2025 11:3 4 AM EST Impressions 08/21/2025 12:24 PM EST No acute pulmonary disease. Although the provided history states that the patient has undergone placement of a PICC line, the visualized central venous catheter appears to enter the vascular system via the right subclavian vein, and not via a peripheral vein. The catheter tip is in good position at the midportion of the superior vena cava. Code 28369 -------- FINAL REPORT -------- Dictated By: Keron Delacruz Dictated Date: 08/21/2025 11:34 ET Assigned Physician: Keron Delacruz Reviewed and Electronically Signed By: Keron Delacruz Signed Date: 08/21/2025 12:24 ET Workstation ID: [id number] Transcribed By: Self Edit Transcribed Date: 08/21/2025 11:34 ET Narrative 08/21/2025 12:24 PM EST HISTORY: The patient is a 50-year-old female with infection has undergone bedside placement of a peripherally inserted central catheter (PICC line). There and lateral radiographs of the chest demonstrate the presence of a small bore central venous catheter which appears to enter the vascular system via the left subclavian vein. The tip is in good position at the midportion of the superior vena cava. The bony structures are of normal appearance. The cardiac and mediastinal contours are within normal limits. The lungs and costophrenic angles are clear there is no pneumothorax. Bilateral breast implants are again seen. Procedure Note Keron Delacruz MD - 08/21/2025 HISTORY: The patient is a 50-year-old female with infection has undergonebedside placement of a peripherally inserted central catheter (PICC line).There and lateral radiographs of the chest demonstrate the presence of asmall bore central venous catheter which appears to enter the vascularsystem via the left subclavian vein. The tip is in good position at themidportion of the superior vena cava. The bony structures are of normalappearance. The cardiac and mediastinal contours are within normal limits.The lungs and costophrenic angles are clear there is no pneumothorax. Bilateral breast implants are again seen. IMPRESSION: No acute pulmonary disease. Although the provided history states that thepatient has undergone placement of a PICC line, the visualized centralvenous catheter appears to enter the vascular system via the rightsubclavian vein, and not via a peripheral vein. The catheter tip is ingood position at the midportion of the superior vena cava. Code 83546 -------- FINAL REPORT -------- Dictated By: Keron Delacruz Dictated Date: 08/21/2025 11:34 ET Assigned Physician: Keron Delacruz Reviewed and Electronically Signed By: Keron Delacruz Signed Date: 08/21/2025 12:24 ET Workstation ID: [id number] Transcribed By: Self Edit Transcribed Date: 08/21/2025 11:34 ET us Candi Donaldson MD IMG XR PROCEDURES Final Result * 12-Lead ECG (08/21/2025 11:06 AM EST) Ventricular Rate ECG 63 BPM GEMUSE Atrial Rate 63 BPM GEMUSE P-R Interval 94 ms GEMUSE QRS Duration 72 ms GEMUSE Q-T Interval 418 ms GEMUSE QTc 427 ms GEMUSE P Wave [place] 47 degrees GEMUSE R [place] -12 degrees GEMUSE ECG Interpretation Sinus rhythm with sinus arrhythmia with short MS When compared with ECG of 15-APR-2020 08:32, Vent. rate has decreased BY 44 BPM Confirmed by DONOVAN LONDON ([id number]) on 08/22/2025 10:58:44 PM GEMUSE 08/21/2025 11:0 6 AM EST 08/22/2025 10:58 PM EST us Candi Donaldson MD ECG ORDERABLES Final Result GEMUSE * POC , urine manually resulted (08/21/2025 11:01 AM EST) HCG, Ur POC Negative Negative POC hCG Int QC Pass? Yes Yes Urine Urine specimen obtained by clean catch procedure / Unknown 08/21/2025 11:01 AM EST us Candi Donaldson MD POINT OF CARE TEST ENTER/EDIT OR DERABLES Final Result * Salas urine culture tube (08/21/2025 10:51 AM EST) Extra Tube Hold for add-ons. 08/21/2025 4:01 PM EST [facility] Comment:Auto resulted. Urine Urine specimen obtained by clean catch procedure / Unknown 08/21/2025 10:51 AM EST 08/21/2025 2:31 PM EST us Candi Donaldson MD LAB URINE ORDERABLES Final Resul t [facility] [address] [place] [address], [place] [phone] * (ABNORMAL) Urinalysis with reflex microscopic (08/21/2025 10:51 AM EST) Specific [place] Urine 1.027 1.003 - 1.030 LAB URINALYSIS - AUTOMATED METHOD 08/21/2025 11:39 AM [facility] pH, Urine 6.0 5.0 - 8.0 pH LAB URINALYSIS - AUTOMATED METHOD 08/21/2025 11:39 AM [facility] Leukocytes, Urine Negative Negative LAB URINALYSIS - AUTOMATED METHOD 08/21/2025 11:39 AM [facility] Nitrite, Urine Negative Negative LAB URINALYSIS - AUTOMATED METHOD 08/21/2025 11:39 AM [facility] Protein, Urine 30(A) <=Trace mg/dL LAB URINALYSIS - AUTOMATED METHOD 08/21/2025 11:39 AM [facility] Glucose, Urine Negative Negative mg/dL LAB URINALYSIS - AUTOMATED METHOD 08/21/2025 11:39 AM [facility] Ketones, Urine Trace(A) Negative mg/dL LAB URINALYSIS - AUTOMATED METHOD 08/21/2025 11:39 AM [facility] Urobilinogen, Urine 1.0 0.2 - 1.0 mg/dL LAB URINALYSIS - AUTOMATED METHOD 08/21/2025 11:39 AM [facility] Bilirubin, Urine Negative Negative LAB URINALYSIS - AUTOMATED METHOD 08/21/2025 11:39 AM [facility] Blood, Urine Small(A) Negative LAB URINALYSIS - AUTOMATED METHOD 08/21/2025 11:39 AM [facility] RBC, Urine 10(H) 0 - 4 /HPF 08/21/2025 11:39 AM [facility] WBC, Urine 10(H) 0 - 4 /HPF 08/21/2025 11:39 AM [facility] Squamous Epithelial, Urine 40 0 - 60 /LPF 08/21/2025 11:39 AM [facility] Bacteria, Urine Negative Negative /HPF 08/21/2025 11:39 AM [facility] Hyaline Casts, Urine 10(H) 0 - 3 /LPF 08/21/2025 11:39 AM [facility] Urine Urine specimen obtained by clean catch procedure / Unknown Non-blood Collection / Unknown 08/21/2025 10:51 AM EST 08/21/2025 11:13 AM EST us Candi Donaldson MD LAB URINE ORDERABLES Final Resul t [facility] [address] [place] [address], * (ABNORMAL) Drug abuse screen 8a panel, urine (08/21/2025 10:51 AM EST) Amphetamine Screen, Ur Negative Negative 08/21/2025 1:30 PM [facility] Comment:Certain OTC medicati ons containing ephedrine, phenylephrine, pseudoephedrine and phenylpropanolamine can cause false positive results. Barbiturate Screen, Ur Negative Negative 08/21/2025 1:30 PM [facility] Benzodiazepine Screen, Ur Negative Negative 08/21/2025 1:30 PM [facility] Cocaine Screen, Ur Positive(A ) Negative 08/21/2025 1:30 PM [facility] Opiate Screen, Ur Positive(A ) Negative 08/21/2025 1:30 PM EST [facility] Cannabinoid (THC) Screen, Ur Negative Negative 08/21/2025 1:30 PM EST [facility] Comment:Specimens from patie nts taking pantoprazole sodium (Protonix) have been shown to produce false positive results. Oxycodone Screen, Ur Negative Negative 08/05 1:30 PM EST [facility] Fentanyl, Ur Positive(A ) Negative 08/21/2025 1:30 PM EST [facility] Urine Urine specimen obtained by clean catch procedure / Unknown Non-blood Collection / Unknown 08/21/2025 10:51 AM EST 08/21/2025 11:13 AM EST Narrative [facility] - 08/21/2025 1:30 PM EST Assay cutoffs: Amphetamines 1000 ng/mL Barbiturates 200 ng/mL Benzodiazepines 200 ng/mL Cocaine 300 ng/mL Fentanyl 1 ng/mL Opiates 300 ng/mL Oxycodone 100 ng/mL THC 50 ng/mL Semi-quantitative assay for screening purposes only. Unconfirmed screening result should not be used for non-medical purposes. *ALTERNATE METHOD CONFIRMATION DONE UPON REQUEST ONLY* us Candi Donaldson MD LAB URINE ORDERABLES Final Resul t Performing Organization Address City/[facility]/ZIP Co de Phone Number [facility] [address] [place] [address], [place] [phone] * Vancomycin random (08/21/2025 10:48 AM EST) Vancomycin Rm <3.0 mcg/mL 08/21/2025 3:17 PM EST [facility] Blood Venous blood specimen / Unknown Venipuncture / Unknown 08/21/2025 10:48 AM EST 08/21/2025 10:58 AM EST us Candi Donaldson MD LAB BLOOD ORDERABLES Final Resul t [facility] [address] [place] [address], [place] [phone] * Ethanol (08/21/2025 10:48 AM EST) [facility] Ethanol Level <3 0 - 10 mg/dL 08/21/2025 11:55 AM EST [facility] Blood Venous blood specimen / Unknown Venipuncture / Unknown 08/21/2025 10:48 AM EST 08/21/2025 10:58 AM EST us Candi Donaldson MD LAB BLOOD ORDERABLES Final Resul t Performing Organization Address City/[facility]/ZIP Co de Phone Number [facility] [address] [place] [address], [place] [phone] * Troponin I High Sensitivity (08/21/2025 10:48 AM EST) [facility] High Sensitivity Troponin I 4 <=34 ng/L 08/21/2025 11:32 AM EST [facility] Blood Venous blood specimen / Unknown Venipuncture / Unknown 08/21/2025 10:48 AM EST 08/21/2025 10:58 AM EST us Candi Donaldson MD LAB BLOOD ORDERABLES Final Resul t [facility] [address] [place] [address], [place] [phone] * (ABNORMAL) CBC auto differential (08/21/2025 10:48 AM EST) [facility] WBC 5.8 4.8 - 10.8 K/[facility] LAB HEMETOLOGY METHOD 08/21/2025 11:18 AM EST [facility] RBC 4.30 3.80 - 4.80 M/[facility] LAB HEMETOLOGY METHOD 08/21/2025 11:18 AM EST [facility] Hemoglobin 11.0(L) 11.5 - 16.0 g/dL LAB HEMETOLOGY METHOD 08/21/2025 11:18 AM [facility] Hematocrit 35.0 35.0 - 47.0 % LAB HEMETOLOGY METHOD 08/21/2025 11:18 AM [facility] MCV 82.2 79.0 - 98.0 FL LAB HEMETOLOGY METHOD 08/21/2025 11:18 AM [facility] MCH 25.8(L) 27.0 - 32.0 pcg LAB HEMETOLOGY METHOD 08/21/2025 11:18 AM [facility] MCHC 31.4(L) 32.0 - 37.0 g/dL LAB HEMETOLOGY METHOD 08/21/2025 11:18 AM [facility] RDW 22.8(H) 11.0 - 15.0 % LAB HEMETOLOGY METHOD 08/21/2025 11:18 AM [facility] Platelets 282 130 - 400 K/mcL LAB HEMETOLOGY METHOD 08/21/2025 11:18 AM [facility] MPV 10.0 7.0 - 11.0 FL LAB HEMETOLOGY METHOD 08/21/2025 11:18 AM [facility] NRBC 0.0 <1.0 % LAB HEMETOLOGY METHOD 08/21/2025 11:18 AM [facility] NRBC Absolute 0.00 <0.10 K/mcL LAB HEMETOLOGY METHOD 08/21/2025 11:18 AM [facility] [facility] Neutrophils Relative 65.7 % LAB HEMETOLOGY METHOD 08/21/2025 11:18 AM [facility] Lymphocytes Relative 23.8 % LAB HEMETOLOGY METHOD 08/21/2025 11:18 AM [facility] Monocytes Relative 7.2 % LAB HEMETOLOGY METHOD 08/21/2025 11:18 AM [facility] Eosinophils Relative 2.1 % LAB HEMETOLOGY METHOD 08/21/2025 11:18 AM EST [facility] Basophils Relative 0.9 % LAB HEMETOLOGY METHOD 08/21/2025 11:18 AM [facility] Immature Granulocytes Relative 0.3 % LAB HEMETOLOGY METHOD 08/21/2025 11:18 AM EST [facility] Neutrophils Absolute 3.82 1.50 - 7.00 K/mcL LAB HEMETOLOGY METHOD 08/21/2025 11:18 AM EST [facility] Lymphocytes Absolute 1.38 1.00 - 5.00 K/mcL LAB HEMETOLOGY METHOD 08/21/2025 11:18 AM [facility] Monocytes Absolute 0.42 0.20 - 1.00 K/mcL LAB HEMETOLOGY METHOD 08/21/2025 11:18 AM EST [facility] Eosinophils Absolute 0.12 0.00 - 0.50 K/mcL LAB HEMETOLOGY METHOD 08/21/2025 11:18 AM EST [facility] Basophils Absolute 0.05 0.00 - 0.20 K/mcL LAB HEMETOLOGY METHOD 08/21/2025 11:18 AM [facility] Immature Granulocytes Absolute 0.02 0.00 - 0.03 K/mcL LAB HEMETOLOGY METHOD 08/21/2025 11:18 AM EST [facility] Blood Venous blood specimen / Unknown Venipuncture / Unknown 08/21/2025 10:48 AM EST 08/21/2025 10:58 AM EST us Candi Donaldson MD LAB BLOOD ORDERABLES Final Resul t [facility] [address] [place] [address], * (ABNORMAL) Comprehensive metabolic panel (08/21/2025 10:48 AM EST) [facility] Signature Sodium 139 133 - 145 mmol/L 08/21/2025 11:27 AM [facility] Potassium 3.8 3.5 - 5.5 mmol/L 08/21/2025 11:27 AM [facility] Chloride 102 96 - 110 mmol/L 08/21/2025 11:27 AM [facility] CO2 26 21 - 32 mmol/L 08/21/2025 11:27 AM [facility] Anion Gap 11 3 - 11 08/21/2025 11:27 AM [facility] Glucose 78 70 - 100 mg/dL 08/21/2025 11:27 AM [facility] BUN 26(H) 5 - 25 mg/dL 08/21/2025 11:27 AM [facility] Creatinine 0.86 0.50 - 1.10 mg/dL 08/21/2025 11:27 AM [facility] eGFR 83 >=60 mL/min/1. 73m2 08/21/2025 11:27 AM [facility] Comment:Calculation based on the Chronic Kidney Disease Epidemiology Collaboration (CKD-EPI) equation refit without adjustment for race. BUN/Creatinine Ratio 30.2 08/21/2025 11:27 AM [facility] Calcium 9.3 8.5 - 10.5 mg/dL 08/21/2025 11:27 AM [facility] AST (SGOT) 18 10 - 42 unit/L 08/21/2025 11:27 AM [facility] ALT (SGPT) 11 10 - 60 unit/L 08/21/2025 11:27 AM [facility] Alkaline Phosphatase 88 42 - 121 unit/L 08/21/2025 11:27 AM [facility] Total Protein 8.8(H) 6.0 - 8.0 g/dL 08/21/2025 11:27 AM EST [facility] Albumin 4.4 3.2 - 5.0 g/dL 08/21/2025 11:27 AM EST [facility] Total Bilirubin 0.2 0.0 - 1.4 mg/dL 08/21/2025 11:27 AM EST [facility] Blood Venous blood specimen / Unknown Venipuncture / Unknown 08/21/2025 10:48 AM EST 08/21/2025 10:58 AM EST us Candi Donaldson MD LAB BLOOD ORDERABLES Final Resul t Performing Organization Address City/[facility]/ZIP Co de Phone Number [facility] [address] [place] [address], [place] [phone] * Lactate, with reflex (08/21/2025 10:48 AM EST) LACTIC ACID 0.8 0.4 - 2.0 mmol/L 08/21/2025 11:24 AM EST [facility] Blood Venous blood specimen / Unknown Venipuncture / Unknown 08/21/2025 10:48 AM EST 08/21/2025 10:57 AM EST us Candi Donaldson MD LAB BLOOD ORDERABLES Final Resul t [facility] [address] [place] [address], [place] [phone] documented in this encounter Visit Diagnoses Diagnosis Septic arthritis of lumbar spine ([facility] V24)- Primary Septic arthritis of lumbar spine ([facility] V24) Arm ulcer, with fat layer exposed Cellulitis of upper extremity, unspecified laterality Opiate abuse, continuous ([facility] V24, [facility] V28) documented in this encounter Admitting Diagnoses Diagnosis Septic arthritis of lumbar spine ([facility] V24) documented in this encounter Administered Medications Inactive Administered Medications - up to 3 most recent administrations Medication Order MAR Action Action Date Dose Rate Site acetaminophen (TYLENOL) tablet 1,000 mg 1,000 mg, oral, Once, On Tue08/21/25 at 1022, For 1 dose Given 08/21/2025 11:30 AM EST 1,000 mg acetaminophen (TYLENOL) tablet 1,000 mg 1,000 mg, oral, Every 6 hours scheduled, First dose on Tue08/21/25 at 1430, Scheduled medication for mild pain Given 08/23/2025 12:52 AM EST 1,000 mg Given 08/22/2025 6:16 PM EST 1,000 mg Given 08/22/2025 11:46 AM EST 1,000 mg alteplase (CATHFLO ACTIVASE) injection 2 mg 2 mg, intra-catheter, Once, On Glory 08/22/25 at 1045, For 1 dose, -Catheter Clearance - PICC -Allow dwell time of 30 - 60 minutes -Attempt to aspirate blood from catheter -If unable to aspirate, allow to dwell for 60 - 90 additional minutes (120 minutes total) -May repeat once in 120 minutes if line not patent Dilute each 2 mg vial with 2.2 mL sterile water to give 1 mg/mL final concentration. Swirl gently to mix; do not shake., Alteplase Indication: Catheter Clearance Given 08/22/2025 11:57 AM EST 2 mg bisacodyL (DULCOLAX) EC tablet 10 mg 10 mg, oral, Daily PRN, constipation, Starting on Tue08/21/25 at 1413, 1st line for treatment of constipation - give scheduled if no bowel movement in past 24 hours. Do not crush, chew, or split. cefTRIAXone (ROCEPHIN) 1 g in sterile water 10 mL IV syringe 1 g, intravenous, Administer over 3 Minutes, Every 24 hours, First dose on Tue08/21/25 at 1400, For 7 doses, Do not administer simultaneously with any calcium containing solutions via a Y-site in any patient., Indication: Skin/Soft Tissue Given 08/22/2025 1:51 PM EST 1 g Given 08/21/2025 1:54 PM EST 1 g enoxaparin (LOVENOX) injection 40 mg 40 mg, subcutaneous, Every 24 hours scheduled, First dose on Tue08/21/25 at 1430, Indication: VTE/PE Prophylaxis Given 08/22/2025 8:15 AM EST 40 mg Right Upper Abdomen ferrous sulfate tablet 325 mg 325 mg, oral, 2 times daily, First dose on Tue08/21/25 at 1430, For 324 days, Take on an empty stomach with a full glass of water, at least 1 hour before or 2 hours after a meal. May be taken with food if causes an upset stomach. Avoid taking antacids or antibiotics within 2 hours before or after. Ordered as ferrous sulfate. 325 mg ferrous sulfate = 65 mg elemental iron. Given 08/22/2025 9:23 PM EST 325 mg Given 08/22/2025 8:15 AM EST 325 mg Given 08/21/2025 9:00 PM EST 325 mg gabapentin (NEURONTIN) capsule 100 mg 100 mg, oral, Every 8 hours scheduled, First dose on Tue08/21/25 at 1430 Given 08/22/2025 9:23 PM EST 100 mg Given 08/22/2025 1:51 PM EST 100 mg Given 08/22/2025 5:53 AM EST 100 mg ketorolac (TORADOL) injection 15 mg 15 mg, intravenous, Once, On Tue08/21/25 at 1022, For 1 dose Given 08/21/2025 11:37 AM EST 15 mg lidocaine 4 % patch 1 patch 1 patch, Topical, Administer over 12 Hours, Once, On Tue08/21/25 at 1022, For 1 dose, Apply to back. Patch Applied 08/21/2025 11:33 AM EST 1 patch B ack lidocaine 4 % patch 1 patch 1 patch, Topical, Administer over 12 Hours, Daily, First dose on Tue08/22/25 at 0900, *12 hours on and 12 hours off* Patch Applied 08/22/2025 8:15 AM EST 1 patch Back LORazepam (ATIVAN) tablet 0.5 mg 0.5 mg, oral, 2 times daily PRN, anxiety, Starting on Tue08/22/25 at 1730 Given 08/22/2025 6:20 PM EST 0.5 mg LORazepam (ATIVAN) tablet 1 mg 1 mg, oral, Once, On Tue08/21/25 at 1218, For 1 dose Given 08/21/2025 12:20 PM EST 1 mg methadone (DOLOPHINE) tablet 10 mg 10 mg, oral, Daily, First dose on Tue08/21/25 at 1400 Given 08/22/2025 8:15 AM EST 10 mg Given 08/21/2025 1:49 PM EST 10 mg methadone (DOLOPHINE) tablet 10 mg 10 mg, oral, Once, On Tue08/22/25 at 1015, For 1 dose Given 08/22/2025 10:11 AM EST 10 mg methadone (DOLOPHINE) tablet 20 mg 20 mg, oral, Daily, First dose on Tue08/23/25 at 0900, For total dose 60mg methadone (METHADOSE) dispersible tablet 40 mg 40 mg, oral, Daily, First dose on Tue08/21/25 at 1400, Disperse total dose in ~120 mL of water, orange juice, or other acidic fruit beverage prior to administration; if insoluble excipients remain and do not entirely dissolve, add a small amount of liquid to cup and administer remaining mixture. Do not chew or swallow tablet before dispersing in liquid. Given 08/22/2025 8:15 AM EST 40 mg Given 08/21/2025 1:49 PM EST 40 mg methadone (METHADOSE) dispersible tablet 40 mg 40 mg, oral, Daily, First dose on Tue08/23/25 at 0900, Disperse total dose in ~120 mL of water, orange juice, or other acidic fruit beverage prior to administration; if insoluble excipients remain and do not entirely dissolve, add a small amount of liquid to cup and administer remaining mixture. Do not chew or swallow tablet before dispersing in liquid. methocarbamoL (ROBAXIN) tablet 1,500 mg 1,500 mg, oral, Once, On Tue08/21/25 at 1022, For 1 dose Given 08/21/2025 11:30 AM EST 1,500 mg naloxone (NARCAN) injection 0.04 mg 0.04 mg, intravenous, As needed, opioid reversal, IV Push every 1 min for 10 doses, Starting on Tue08/21/25 at 1410, For 10 doses, To Dilute: -Use 0.4 mg/mL vial , withdraw 1 mL and add 9 mL NS -FOLLOWING DILUTION, dose of 0.04 mg = 1 mL For PARTIAL Opioid Reversal: -For respiratory rate LESS than 10 or Pasero Opioid-induced Sedation Scale (POSS) equal to 4 -May be repeated at 1 minute intervals to restore adequate respirations -Administer up to 10 doses (0.4 mg) ondansetron (PF) (ZOFRAN) injection 4 mg 4 mg, intravenous, Every 8 hours PRN, vomiting, nausea, Starting on Tue08/21/25 at 1410, -ONLY give IV if patient is unable to take orally. -If inadequate response within 30 minutes, proceed to next-line agent or contact provider if no further options ordered. ondansetron ODT (ZOFRAN-ODT) disintegrating tablet 4 mg 4 mg, oral, Every 8 hours PRN, vomiting, nausea, Starting on Tue08/21/25 at 1410, -Give IV if patient is unable to take orally. -If inadequate response within 30 minutes, proceed to next-line agent or contact provider if no further options ordered. For ODT tablets: -Do not remove from blister pack until just before administering. -Patient should allow tablet to dissolve on tongue. oxyCODONE (ROXICODONE) immediate release tablet 10 mg 10 mg, oral, Every 4 hours PRN, moderate pain or when therapies for mild pain were not effective, Starting on Tue08/21/25 at 1410 Given 08/22/2025 6:55 AM EST 10 mg oxyCODONE (ROXICODONE) immediate release tablet 15 mg 15 mg, oral, Every 4 hours PRN, severe pain or when therapies for moderate pain were not effective, Starting on Tue08/21/25 at 1410 Given 08/22/2025 3:04 PM EST 15 mg polyethylene glycol (MIRALAX) packet 17 g 17 g, oral, Daily, First dose on Tue08/21/25 at 1430, Bowel Regimen - for prevention of constipation sodium chloride 0.9 % flush 10 mL 10 mL, intravenous, 2 times daily, First dose on Tue08/21/25 at 1412 Given 08/22/2025 9:23 PM EST 10 mL Given 08/22/2025 8:19 AM EST 10 mL Given 08/21/2025 9:45 PM EST 10 mL sodium chloride 0.9 % flush 10 mL 10 mL, intravenous, As needed, line care, Starting on Tue08/21/25 at 1409 vancomycin (VANCOCIN) 750 mg in sodium chloride 0.9 % 250 mL IVPB 750 mg, intravenous, at 250 mL/hr, Administer over 60 Minutes, Every 12 hours, First dose on Tue08/21/25 at 1400, For 9 days, Indication: Bacteremia New Bag 08/22/2025 1:51 PM EST 750 mg 250 mL/h r New Bag 08/22/2025 1:46 AM EST 750 mg 250 mL/hr New Bag 08/21/2025 2:22 PM EST 750 mg 250 mL/hr vancomycin (VANCOCIN) 750 mg in sodium chloride 0.9 % 250 mL IVPB 750 mg, intravenous, at 250 mL/hr, Administer over 60 Minutes, Every 8 hours, First dose (after last modification) on Tue08/23/25 at 0200, For 7 days, Indication: Bacteremia zolpidem (AMBIEN) tablet 10 mg 10 mg, oral, Nightly PRN, sleep, Starting on Tue08/21/25 at 1726 Given 08/22/2025 9:23 PM EST 10 mg Given 08/22/2025 1:46 AM EST 10 mg documented in this encounter Discontinued Medications Medication Sig Discontinue Reason Start Date End Da te buprenorphine-naloxone (SUBOXONE) 2-0.5 mg [address] tablet [address] 1 tablet under the tongue 2 (two) times a day. After the medication is completely dissolved, take a large sip of water, swish it around teeth and gums, and swallow. Wait at least 1 hour before brushing teeth to avoid damage to your teeth. Max Daily Amount: 2 tablets Formulary change 07/11/2025 08/21/2025 documented as of this encounter Active and Recently Administered Medications Times are shown in EST. Scheduled Medication Order 08/21/2025 08/22/2025 08/23/2025 acetaminophen (TYLENOL) tablet 1,000 mg (COMPLETED) 1,000 mg, oral, Once, On Tue08/21/25 at 1022, For 1 dose 1130 (Given - Provider: Marylou Gaston RN) acetaminophen (TYLENOL) tablet 1,000 mg 1,000 mg, oral, Every 6 hours scheduled, First dose on Tue08/21/25 at 1430, Scheduled medication for mild pain 1428 (Hold - Provider: Marylou Gaston RN - Reason: Other - Comment: last received [phone] (Not Given - Provider: Suzanna Shannon RN - Reason: Patient/Resident/Age nt refused - education provided )2357 (Given - Provider: Xander Lombardo RN) 0553 (Given - Provider: Xander Lombardo RN)1146 (Given - Provider: Jay Bill, AMBER)1816 (Given - Provider: Jay Bill, AMBER) 0052 (Given - Provider: Nataliya Ramírez RN)0600 (Canceled Entry - Provider: Automatic Discharge Provider - Comment: Automatically canceled at discontinue of medication order) alteplase (CATHFLO ACTIVASE) injection 2 mg (COMPLETED) 2 mg, intra-catheter, Once, On Glory 08/22/25 at 1045, For 1 dose, -Catheter Clearance - PICC -Allow dwell time of 30 - 60 minutes -Attempt to aspirate blood from catheter -If unable to aspirate, allow to dwell for 60 - 90 additional minutes (120 minutes total) -May repeat once in 120 minutes if line not patent Dilute each 2 mg vial with 2.2 mL sterile water to give 1 mg/mL final concentration. Swirl gently to mix; do not shake., Alteplase Indication: Catheter Clearance 1157 (Given - Provider: Les Joiner RN) cefTRIAXone (ROCEPHIN) 1 g in sterile water 10 mL IV syringe 1 g, intravenous, Administer over 3 Minutes, Every 24 hours, First dose on Tue08/21/25 at 1400, For 7 doses, Do not administer simultaneously with any calcium containing solutions via a Y-site in any patient., Indication: Skin/Soft Tissue 1354 (Given - Provider: Marylou Gaston RN) 1351 (Given - Provider: Jay Bill, AMBER) enoxaparin (LOVENOX) injection 40 mg 40 mg, subcutaneous, Every 24 hours scheduled, First dose on Tue08/21/25 at 1430, Indication: VTE/PE Prophylaxis 1430 (Not Given - Provider: Marylou Gaston RN - Reason: Patient/Resident/Age nt refused - education provided ) 0815 (Given - Provider: Jay Bill, AMBER) ferrous sulfate tablet 325 mg 325 mg, oral, 2 times daily, First dose on Tue08/21/25 at 1430, For 324 days, Take on an empty stomach with a full glass of water, at least 1 hour before or 2 hours after a meal. May be taken with food if causes an upset stomach. Avoid taking antacids or antibiotics within 2 hours before or after. Ordered as ferrous sulfate. 325 mg ferrous sulfate = 65 mg elemental iron. 1428 (Given - Provider: Marylou Gaston RN)2100 (Given - Provider: Xander Lombardo RN) 0815 (Given - Provider: Jay Bill RN)2122 (Given - Provider: Nataliya Ramírez, AMBER) gabapentin (NEURONTIN) capsule 100 mg 100 mg, oral, Every 8 hours scheduled, First dose on Tue08/21/25 at 1430 1428 (Given - Provider: Marylou Gaston RN)2100 (Given - Provider: Xander Lombardo RN) 0553 (Given - Provider: Xander Lombardo, AMBER)1351 (Given - Provider: Jay Bill, AMBER)2122 (Given - Provider: Nataliya Ramírez RN) 0600 (Canceled Entry - Provider: Automatic Discharge Provider - Comment: Automatically canceled at discontinue of medication order) ketorolac (TORADOL) injection 15 mg (COMPLETED) 15 mg, intravenous, Once, On Tue08/21/25 at 1022, For 1 dose 1137 (Given - Provider: Marylou Gaston RN) lidocaine 4 % patch 1 patch (COMPLETED) 1 patch, Topical, Administer over 12 Hours, Once, On Tue08/21/25 at 1022, For 1 dose, Apply to back. 1133 (Patch Applied - Provider: Marylou Gaston RN)2338 (Patch Removed - Provider: Xander Lombardo RN) lidocaine 4 % patch 1 patch 1 patch, Topical, Administer over 12 Hours, Daily, First dose on Tue08/22/25 at 0900, *12 hours on and 12 hours off* 0815 (Patch Applied - Provider: Jay Bill, AMBER)2122 (Patch Removed - Provider: Nataliya Ramírez, AMBER) LORazepam (ATIVAN) tablet 1 mg (COMPLETED) 1 mg, oral, Once, On Tue08/21/25 at 1218, For 1 dose 1220 (Given - Provider: Marylou Gaston RN) methadone (DOLOPHINE) tablet 10 mg (CANCELED)(Linked Group 1) 10 mg, oral, Daily, First dose on Tue08/21/25 at 1400 1349 (Given - Provider: Marylou Gaston RN) 0815 (Given - Provider: Jay Bill RN) methadone (DOLOPHINE) tablet 10 mg (COMPLETED) 10 mg, oral, Once, On Tue08/22/25 at 1015, For 1 dose 1011 (Given - Provider: Jay Bill RN) methadone (DOLOPHINE) tablet 20 mg 20 mg, oral, Daily, First dose on Tue08/23/25 at 0900, For total dose 60mg methadone (METHADOSE) dispersible tablet 40 mg (CANCELED)(Linked Group 1) 40 mg, oral, Daily, First dose on Tue08/21/25 at 1400, Disperse total dose in ~120 mL of water, orange juice, or other acidic fruit beverage prior to administration; if insoluble excipients remain and do not entirely dissolve, add a small amount of liquid to cup and administer remaining mixture. Do not chew or swallow tablet before dispersing in liquid. 1349 (Given - Provider: Marylou Gaston RN) 0815 (Given - Provider: Jay Bill RN) methadone (METHADOSE) dispersible tablet 40 mg 40 mg, oral, Daily, First dose on Tue08/23/25 at 0900, Disperse total dose in ~120 mL of water, orange juice, or other acidic fruit beverage prior to administration; if insoluble excipients remain and do not entirely dissolve, add a small amount of liquid to cup and administer remaining mixture. Do not chew or swallow tablet before dispersing in liquid. methocarbamoL (ROBAXIN) tablet 1,500 mg (COMPLETED) 1,500 mg, oral, Once, On Tue08/21/25 at 1022, For 1 dose 1130 (Given - Provider: Marylou Gaston RN) polyethylene glycol (MIRALAX) packet 17 g 17 g, oral, Daily, First dose on Tue08/21/25 at 1430, Bowel Regimen - for prevention of constipation 1429 (Not Given - Provider: Marylou Gaston RN - Reason: Patient/Resident/Age nt refused - education provided ) 0815 (Not Given - Provider: Jay Bill RN - Reason: Patient/Resident/Ag ent refused - education provided ) sodium chloride 0.9 % flush 10 mL(Linked Group 2) 10 mL, intravenous, 2 times daily, First dose on Tue08/21/25 at 1412 1429 (Given - Provider: Marylou Gaston, RN)2145 (Given - Provider: Xander Lombardo, RN) 0819 (Given - Provider: Jay Bill, AMBER)2123 (Given - Provider: Nataliya Ramírez RN) vancomycin (VANCOCIN) 750 mg in sodium chloride 0.9 % 250 mL IVPB (CANCELED) 750 mg, intravenous, at 250 mL/hr, Administer over 60 Minutes, Every 12 hours, First dose on Tue08/21/25 at 1400, For 9 days, Indication: Bacteremia 1422 (New Bag - Provider: Marylou Gaston, RN)1539 (Stopped - Provider: Marylou Gaston RN) 0146 (New Bag - Provider: Xander Lombardo, RN)0539 (Stopped - Provider: Xander Lombardo RN)1351 (New Bag - Provider: Jay Bill, AMBER)1451 (Stopped - Provider: Jay Bill, AMBER) vancomycin (VANCOCIN) 750 mg in sodium chloride 0.9 % 250 mL IVPB 750 mg, intravenous, at 250 mL/hr, Administer over 60 Minutes, Every 8 hours, First dose (after last modification) on Tue08/23/25 at 0200, For 7 days, Indication: Bacteremia 0200 (Canceled Entry - Provider: Automatic Discharge Provider - Comment: Automatically canceled at discontinue of medication order) PRN Medication Order 08/21/2025 08/22/2025 08/23/2025 bisacodyL (DULCOLAX) EC tablet 10 mg 10 mg, oral, Daily PRN, constipation, Starting on Tue08/21/25 at 1413, 1st line for treatment of constipation - give scheduled if no bowel movement in past 24 hours. Do not crush, chew, or split. LORazepam (ATIVAN) tablet 0.5 mg 0.5 mg, oral, 2 times daily PRN, anxiety, Starting on Glory 08/22/25 at 1730 1820 (Given - Provider: Jay Bill, AMBER) naloxone (NARCAN) injection 0.04 mg 0.04 mg, intravenous, As needed, opioid reversal, IV Push every 1 min for 10 doses, Starting on Tue08/21/25 at 1410, For 10 doses, To Dilute: -Use 0.4 mg/mL vial , withdraw 1 mL and add 9 mL NS -FOLLOWING DILUTION, dose of 0.04 mg = 1 mL For PARTIAL Opioid Reversal: -For respiratory rate LESS than 10 or Pasero Opioid-induced Sedation Scale (POSS) equal to 4 -May be repeated at 1 minute intervals to restore adequate respirations -Administer up to 10 doses (0.4 mg) ondansetron (PF) (ZOFRAN) injection 4 mg(Linked Group 3) 4 mg, intravenous, Every 8 hours PRN, vomiting, nausea, Starting on Tue08/21/25 at 1410, -ONLY give IV if patient is unable to take orally. -If inadequate response within 30 minutes, proceed to next-line agent or contact provider if no further options ordered. ondansetron ODT (ZOFRAN-ODT) disintegrating tablet 4 mg(Linked Group 3) 4 mg, oral, Every 8 hours PRN, vomiting, nausea, Starting on Tue08/21/25 at 1410, -Give IV if patient is unable to take orally. -If inadequate response within 30 minutes, proceed to next-line agent or contact provider if no further options ordered. For ODT tablets: -Do not remove from blister pack until just before administering. -Patient should allow tablet to dissolve on tongue. oxyCODONE (ROXICODONE) immediate release tablet 10 mg 10 mg, oral, Every 4 hours PRN, moderate pain or when therapies for mild pain were not effective, Starting on Tue08/21/25 at 1410 0655 (Given - Provider: Angelic Lombardo RN) oxyCODONE (ROXICODONE) immediate release tablet 15 mg 15 mg, oral, Every 4 hours PRN, severe pain or when therapies for moderate pain were not effective, Starting on Tue08/21/25 at 1410 1504 (Given - Provider: Jay Bill RN) sodium chloride 0.9 % flush 10 mL(Linked Group 2) 10 mL, intravenous, As needed, line care, Starting on Tue08/21/25 at 1409 zolpidem (AMBIEN) tablet 10 mg 10 mg, oral, Nightly PRN, sleep, Starting on Tue08/21/25 at 1726 0146 (Given - Provider: Angelic Lombardo RN)2123 (Given - Provider: Nataliya Krasinkiewicz, RN) Linked Groups Order Group 1: methadone (METHADOSE) dispersible tablet 40 mg (CANCELED)Jump to med 40 mg, oral, Daily, First dose on Tue08/21/25 at 1400, Disperse total dose in ~120 mL of water, orange juice, or other acidic fruit beverage prior to administration; if insoluble excipients remain and do not entirely dissolve, add a small amount of liquid to cup and administer remaining mixture. Do not chew or swallow tablet before dispersing in liquid. And methadone (DOLOPHINE) tablet 10 mg (CANCELED)Jump to med 10 mg, oral, Daily, First dose on Tue08/21/25 at 1400 Group 2: Insert peripheral IV (COMPLETED) STAT, Once, On Tue08/21/25 at 1410, For 1 occurrence And Maintain IV access (CANCELED) Until discontinued, Starting on Tue08/21/25 at 1410, Until Specified And Saline lock IV (COMPLETED) Routine, Once, On Tue08/21/25 at 1410, For 1 occurrence And sodium chloride 0.9 % flush 10 mLJump to med 10 mL, intravenous, 2 times daily, First dose on Tue08/21/25 at 1412 And sodium chloride 0.9 % flush 10 mLJump to med 10 mL, intravenous, As needed, line care, Starting on Tue08/21/25 at 1409 Group 3: ondansetron ODT (ZOFRAN-ODT) disintegrating tablet 4 mgJump to med 4 mg, oral, Every 8 hours PRN, vomiting, nausea, Starting on Tue08/21/25 at 1410, -Give IV if patient is unable to [...] 8 hours PRN, vomiting, nausea, Starting on Tue08/21/25 at 1410, -ONLY give IV if patient is unable to take orally. -If inadequate response within 30 minutes, proceed to next-line agent or contact provider if no further options ordered. documented in this encounter Orders Medications Ordered That Mehul ht Not Have Been Administered Count Last Ordered Date First Ordered Date vancomycin (VANCOCIN) 750 mg in sodium chloride 0.9 % 250 mL IVPB 1 08/23/2025 methadone (DOLOPHINE) tablet 20 mg 1 2024 methadone (METHADOSE) disper sible tablet 40 mg 1 08/22/2025 methadone (METHADOSE) disper sible tablet 60 mg 1 08/22/2025 bisacodyL (DULCOLAX) EC tablet 10 mg 1 08/05 naloxone (NARCAN) injection 0.04 mg 1 08/21 ondansetron (PF) (ZOFRAN) injection 4 mg 1 08/21/2025 ondansetron ODT (ZOFRAN-ODT) disintegrating tablet 4 mg 1 08/21/2025 polyethylene glycol (MIRALAX) packet 17 g 1 08/21/2025 sodium chloride 0.9 % flush 10 mL 1 025 Consult Count Last Ordered Date First Orde red Date IP CONSULT TO ADDICTION MEDICINE 1 08/21/20 25 IP CONSULT TO SOCIAL WORK 1 08/21/2025 WOUND CARE INPATIENT FOLLOW-UP 1 08/21/2025 IV Count Last Ordered Date First Orde red Date INSERT PERIPHERAL IV 1 08/21/2025 SALINE LOCK IV 1 08/21/2025 Admission Count Last Ordered Date First Orde red Date ADMIT TO INPATIENT 1 08/21/2025 Discharge Count Last Ordered Date First Orde red Date DISCHARGE PATIENT 1 08/23/2025 documented in this encounter Care Teams Chief 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
--- NOTE | ~2025-08-23 | XR_ITS ---
EXAMINATION: XR FINGERS LEFT HISTORY: thumb. shut in bathroom door COMPARISON: There are no prior studies available for comparison. FINDINGS: Three views of the left thumb are submitted. Osseous mineralization is normal. There is no fracture or dislocation. The joint spaces are preserved. The soft tissues are unremarkable. XR/XR finger LT min 2V IMPRESSION: Unremarkable examination of the left thumb. Electronically signed by: Alfredo Ramos MD 08/23/2025 01:55 PM EST
--- NOTE | 2025-08-23 11:46 | ED.GENADULT ---
HPI - General Adult General Chief complaint: General Medical Stated complaint: IV antibiotics Time Seen by Provider: 08/23/25 17:01 Source: patient, RN notes reviewed and old records reviewed Mode of arrival: ambulatory Limitations: no limitations History of Present Illness ED Provider: Darinel HPI narrative: 50-year-old female with a past medical history significant for IV drug abuse, hypothyroidism, GERD, anxiety, recent admission for lumbar spine septic arthritis presents for evaluation of IV antibiotics. the patient was diagnosed with L4/L5 septic arthritis without abscesses at [facility] as beginning of July she was recommended to complete a course of vancomycin through 08/30/2025 and then 1-2 months of doxycycline afterwards she initially had 1 of 2 blood culture bottles that were positive for MRSA, no evidence of vegetation on echocardiogram the patient is ultimately left [facility] against medical advice she presented to this hospital on 07/18/2025 and was discharged to [facility] on 07/22/2025. The patient reports that she was there until this past Tuesday08/19/2025 She went to [facility] yesterday with plans to be discharged back to [facility]. the patient reports that she had a family emergency and left against medical advice again she had received a dose of vancomycin the patient denies any back pain but does complain of left hip pain Related Data Home Medications ?Medication ?Instructions ?Recorded ?Confirmed gabapentin 100 mg capsule 100 mg PO TID 07/17/25 08/23/25 methadone 40 mg soluble tablet 40 mg PO DAILY 08/16/25 08/23/25 Previous Rx's ?Medication ?Instructions ?Recorded ferrous sulfate 324 mg (65 mg 324 mg PO BID #90 tabs 07/22/25 iron) tablet,delayed release oxycodone 10 mg tablet,crush 10 mg PO TID #10 tabs 07/22/25 resistant,extended release 12 hr (OxyContin) sulfamethoxazole 800 1 tab PO Q12H #60 tabs 08/23/25 mg-trimethoprim 160 mg tablet (Bactrim DS) Allergies Allergy/AdvReac Type Severity Reaction Status Date / Time diphenhydramine (From Allergy Severe RASH Verified 08/23/25 11:57 BENADRYL) trazodone (TRAZODONE) AdvReac Severe DYSTONIC Verified 08/23/25 11:57 risperidone (Risperdal) AdvReac Unknown Dystonia Verified 08/23/25 11:57 Review of Systems Constitutional: Constitutional: Reports as per HPI, Denies chills, Denies fatigue, Denies fever(s) and Denies headache(s) ENT: Denies headache(s) Cardiovascular: Cardiovascular: Denies chest pain and Denies dyspnea Respiratory: Respiratory: Denies cough and Denies dyspnea Gastrointestinal: Gastrointestinal: Denies abdominal pain, Denies constipation and Denies vomiting Genitourinary: Genitourinary: Denies dysuria Musculoskeletal: Musculoskeletal: Reports arthralgias ( Left hip pain) Neurologic: Denies headache(s) and Denies focal weakness Endocrine: Endocrine: Denies fatigue PMFSH Past Medical History Medical History Anxiety and depression Anemia PTSD (post-traumatic stress disorder) MDD (major depressive disorder), recurrent episode, severe Panic attacks Peptic ulcer disease Polysubstance abuse Migraine Insomnia Hypothyroid GERD (gastroesophageal reflux disease) Surgical History History of section Family History Family History Father COPD (chronic obstructive pulmonary disease) Lung cancer Mother No problems noted. Maternal Grandmother Esophageal cancer Maternal Grandfather Pancreatic cancer Paternal Grandmother Esophageal cancer Stomach cancer Maternal Aunt Breast cancer Social History Social History Household Members: Friend(s) Household Members Other:: pt states she lives with Mother Housing: Apartment Do you presently have visiting nurse or other home services: No Alcohol intake: unknown Patient Tobacco Use Status: Never used Tobacco Tobacco use type: Cigarette Smoked in Last 30 Days: Yes e-Cigarette/Vaping Use: Never Used Second Hand Smoke Exposure: No Substance Use Type: Crack/Cocaine, Heroin and Opiates Substance Use Frequency: Chronic Longstanding Last Used Substance: Just Prior to Admission Any prior treatment program specific to substance use: No Advance Directives: No Advance Directives Information Provided: No Do you have a plan to hurt others: No Plan Patient : No service: No Current occupational status: employed Sexual orientation: Straight/Heterosexual Cognitive needs: No Hearing needs: No Vision needs: No Physical Exam ED Vital Signs: Vital Signs - 24 hr 08/23/25 11:51 08/23/25 15:28 08/23/25 17:02 Temperature 97.4 F 98.4 F Pulse Rate 101 H 98 88 Respiratory Rate 18 18 18 Blood Pressure 174/89 H 177/81 H 140/98 H Pulse Oximetry 97 100 98 Oxygen Delivery Method Room Air Room Air Room Air 08/23/25 20:07 Temperature 97.9 F Pulse Rate 90 Respiratory Rate 16 Blood Pressure 153/95 H Pulse Oximetry 98 Oxygen Delivery Method Room Air BMI result Body Mass Index 23.5 Const General: healthy appearing, comfortable, no acute distress, alert and awake Nutritional Appearance: well nourished Orientation/consciousness: patient oriented x3 HENMT Head: Yes normocephalic and Yes atraumatic Throat: Yes posterior oropharynx normal Eyes Eyelids: Yes eyelids normal Conjunctivae: conjunctivae normal Sclerae: sclerae normal Corneas: corneas normal Pupils: Equal, round and reactive pupils present EOM: EOMs intact bilaterally Neck Neck: Yes full ROM Resp Effort & Inspection: normal respiratory effort, able to speak in complete sentences, no audible wheezes and not labored Auscultation: clear to auscultation bilaterally Cardio Rate: regular rate Rhythm: regular rhythm GI Inspection: No distended Palpation (GI): Soft to palpation, not firm, nontender, no guarding and not rigid Back/Spine/Pelvis Other: no lumbar vertebral tenderness. Thoracic/Lumbar Spine: straight leg raise negative bilaterally Skin General skin exam: no rashes or lesions noted and elasticity normal Neuro General: patient oriented x3 Cranial nerves: Yes CN's II-XII intact bilaterally, Yes Equal, round and reactive pupils present and Yes Bilaterally intact EOM present Cognition (Neuro): normal cognition Gait exam (Neuro): Normal gait present Motor exam (neuro): 5/5 motor strength present throughout Deep tendon reflexes (DTR's): Right patellar reflex intensity grade: 2+ and Left patellar reflex intensity grade: 2+ Extrem Other: Moving all extremities well without any obvious deformities Course Course Course Narrative: This is a Rapid Medical Exam performed in triage by Sierra Barriga PA-C. Full HPI, ROS and PE to be performed by primary ED provider. 50 years old woman with past medical history significant for IVDU (active)/polysubstance abuse, chronic hepatitis-C, anxiety, PTSD, depression, recently admitted to our hospital for L4-5 septic arthritis with MRSA bacteremia requiring IV antibiotics (to be completed on 08/30/2025) - discharged on 07/22/25 to short-term rehab - presents to the ED for IV abx. States she left [facility] on 08/19 then went to [facility] 08/21 was admitted but then left AMA yesterday & now presents here. C/o feeling unwell, heart racing PE: wounds noted to b/l UE. Small broken part of needle removed from RUE while in triage Plan: Labs, blood cx -[id number]--patient came up to triage stating she shut her L thumb in bathroom door in WR - XR ordered Reevaluation(s) Reevaluation #1: I have spoken to our infectious disease provider, Dr. Macie Silver. she feels the patient can be discharged with a month supply of doxycycline and outpatient follow up for possibly another additional month of antibiotics. I discussed this with the patient and she reports that she is unwilling to take doxycycline because it causes stomach upset. I reached out to Infectious Disease again who feels that Bactrim is a good alternative and the patient can still be discharged with oral antibiotics. I discussed this with the patient again who ultimately agreed to this plan however then discussed with nursing and felt that she may be suicidal if she was discharged home. The patient will be evaluated by the care team however she is medically cleared and does not require IV antibiotics at this time. The patient has had multiple negative blood cultures since initially having positive cultures over a month ago Time: 18:52 Reevaluation #2: patient is seen with the care team and will be a voluntary bed search for dual diagnosis substance abuse and depression Time: 20:13 Medications Administered Discontinued Medications Generic Name Dose Route Start Last Admin Trade Name Freq PRN Reason Stop Dose Admin Doxycycline Monohydrate 100 mg 08/23/25 17:46 08/23/25 17:56 Doxycycline Monohydrate 100 Mg Capsule PO 08/23/25 17:47 Not Given ONCE ONE Ibuprofen 400 mg 08/23/25 13:55 08/23/25 14:06 Ibuprofen 400 Mg Tablet PO 08/23/25 13:56 400 mg ONCE ONE Administration Lorazepam 1 mg 08/23/25 17:44 08/23/25 17:57 Lorazepam 1 Mg Tablet PO 08/23/25 17:45 1 mg ONCE ONE Administration Trimethoprim/Sulfamethoxazole 1 tab 08/23/25 18:01 08/23/25 18:41 Sulfamethox/Trimeth 800/160 Tablet PO 08/23/25 18:02 1 tab ONCE ONE Administration Medical Decision Making Medical Decision Making [facility] Narrative: 50-year-old female presents for evaluation of IV antibiotics. . She is requesting to continue her IV vancomycin which she had initially been prescribed through 08/30/2025. She has been on the medication for over 1 month. Initial infectious disease recommendations were to switch to doxycycline b.i.d. for at least 1 month after completion of vancomycin treatment. The patient has left against medical advice from multiple facilities multiple times over the last few days and weeks since her initial treatment started. She currently does not have any PICC line or Amos catheter in place. In his reassuring that she is afebrile does not have back pain or spinal tenderness. She has no leukocytosis. Her ESR is somewhat elevated to 53 but she is continuing to use IV drugs. Your CRP is within normal limits. The patient has no neuro deficits. No warning signs to suggest cauda equina syndrome or spinal epidural abscess. I do not feel that she requires a repeat lumbar spine MRI at this time. We will discuss with infectious disease for definitive management. the patient has also had multiple negative blood cultures since her initial positive MRSA at outside hospital Differential Diagnosis Differential Diagnoses: The differential diagnosis associated with the presentation includes septic arthritis of lumbar spine Bacteremia IV drug abuse Cellulitis Admission/Observation Consideration of admission/observation: Escalation of care including admission/observation considered Consult Healthcare Provider Management of the patient was discussed with: Consumer Sales Representative ( infectious disease) Lab Data [facility] Lab Attestation statement: I reviewed the patient's lab results. mild leukopenia and anemia consistent with a baseline. No chemistry abnormalities warranting intervention. 08/23/25 12:23 08/23/25 12:23 Labs: Lab Results 08/23/25 08/23/25 08/23/25 Range/Units 12:22 12:23 12:27 WBC 3.5 L (4.8-10.8) X10*3/uL RBC 4.11 L (4.20-5.50) X10*6/uL Hgb 10.5 L (12.0-16.0) g/dl Hct 34.1 L (37.0-47.0) % MCV 83.0 (80.0-98.0) fL MCH 25.5 L (27.0-33.0) pg MCHC 30.8 L (31.0-35.0) g/dl RDW 22.2 H (11.0-16.0) % Plt Count 234 (160-400) X10*3/uL MPV 9.9 (9.4-12.3) fL Immature Gran % (Auto) 0.3 (0.0-0.4) % Neut % (Auto) 62.5 (45-73) % Lymph % (Auto) 26.7 (20-40) % [place] % (Auto) 7.4 (2-11) % Eos % (Auto) 2.0 (0-4) % Baso % (Auto) 1.1 (0-2) % Lymph # (Auto) 0.9 L (1.2-4.9) X10*3/uL [place] # (Auto) 0.3 (0.1-1.2) X10*3/uL Eos # (Auto) 0.1 (0.0-0.4) X10*3/uL Baso # (Auto) 0.0 (0.0-0.2) X10*3/uL Abs Immat Gran (auto) 0.01 (0.00-0.03) X10*3/uL Absolute Neuts (auto) 2.2 (2.0-8.3) x10*3/uL Absolute Nucleated RBC 0.000 (0.0-0.012) X10*3/uL Nucleated RBC % (auto) 0.0 (0.0-0.2) /100WBC ESR 53 H (1-20) MM/HR Sodium 142 (135-145) mmol/L Potassium 3.8 (3.3-5.1) mmol/L Chloride 110 H (96-108) mmol/L Carbon Dioxide 24 (22-29) mmol/L Anion Gap 12 (12-20) BUN 24 H (9-16) mg/dL Creatinine 0.66 (0.5-1.4) mg/dL Estim Creat Clear Calc 80.9 Estimated GFR > 60 Random Glucose 108 (60-115) mg/dL Calcium 9.6 D (8.4-10.2) mg/dL C-Reactive Protein 0.30 (< or = 0.50) mg/dL Hold Red Top See Note Urine Opiates Screen (Not Detect) Ur Buprenorphine Scrn (Not Detect) ng/mL Ur Oxycodone Screen (Not Detect) ng/mL Urine Methadone Screen (Not Detect) ng/mL Urine Fentanyl Screen (Not Detect) Ur Barbiturates Screen (Not Detect) Ur Phencyclidine Scrn (Not Detect) Ur Amphetamines Screen (Not Detect) U Benzodiazepines Scrn (Not Detect) Urine Cocaine Screen (Not Detect) U Marijuana (THC) Screen (Not Detect) 08/23/25 Range/Units 16:54 WBC (4.8-10.8) X10*3/uL RBC (4.20-5.50) X10*6/uL Hgb (12.0-16.0) g/dl Hct (37.0-47.0) % MCV (80.0-98.0) fL MCH (27.0-33.0) pg MCHC (31.0-35.0) g/dl RDW (11.0-16.0) % Plt Count (160-400) X10*3/uL MPV (9.4-12.3) fL Immature Gran % (Auto) (0.0-0.4) % Neut % (Auto) (45-73) % Lymph % (Auto) (20-40) % [place] % (Auto) (2-11) % Eos % (Auto) (0-4) % Baso % (Auto) (0-2) % Lymph # (Auto) (1.2-4.9) X10*3/uL [place] # (Auto) (0.1-1.2) X10*3/uL Eos # (Auto) (0.0-0.4) X10*3/uL Baso # (Auto) (0.0-0.2) X10*3/uL Abs Immat Gran (auto) (0.00-0.03) X10*3/uL Absolute Neuts (auto) (2.0-8.3) x10*3/uL Absolute Nucleated RBC (0.0-0.012) X10*3/uL Nucleated RBC % (auto) (0.0-0.2) /100WBC ESR (1-20) MM/HR Sodium (135-145) mmol/L Potassium (3.3-5.1) mmol/L Chloride (96-108) mmol/L Carbon Dioxide (22-29) mmol/L Anion Gap (12-20) BUN (9-16) mg/dL Creatinine (0.5-1.4) mg/dL Estim Creat Clear Calc Estimated GFR Random Glucose (60-115) mg/dL Calcium (8.4-10.2) mg/dL C-Reactive Protein (< or = 0.50) mg/dL Hold Red Top Urine Opiates Screen POSITIVE H (Not Detect) Ur Buprenorphine Scrn Not Detected (Not Detect) ng/mL Ur Oxycodone Screen Positive H (Not Detect) ng/mL Urine Methadone Screen Positive H (Not Detect) ng/mL Urine Fentanyl Screen POSITIVE H (Not Detect) Ur Barbiturates Screen Not Detected (Not Detect) Ur Phencyclidine Scrn Not Detected (Not Detect) Ur Amphetamines Screen Not Detected (Not Detect) U Benzodiazepines Scrn Not Detected (Not Detect) Urine Cocaine Screen POSITIVE H (Not Detect) U Marijuana (THC) Screen Not Detected (Not Detect) External Record Review External record reviewed: Inpatient record, Outpatient record, Prior outpatient labs, Prior outpatient radiology and Outside ED record Tests considered The following testing was considered but not selected: Considered lumbar spine MRI Prescription Management I considered prescription management with: Pain Medication and Antibiotic Social Determinants Patient?s care significantly limited by Social Determinants of Health including: Alcoholism and drug addiction in family and Problems related to primary support group Discharge Plan Discharge Clinical Impression: Septic arthritis of lumbar spine, Depression
[2025-08-23 11:51] VITALS: BP 174/89; PULSE 101; RESP 18; TEMP 36.3; O2SAT 97; BMI 23.5
[2025-08-23 12:29] LABS: MANUAL DIFF FLAG NO
[2025-08-23 12:32] LABS: Hematocrit 34.1 % (37.0-47.0); Hemoglobin 10.5 g/dl (12.0-16.0); Imm Gran Abs Auto 0.01 X10*3/uL (0.00-0.03); Imm Gran Pct Auto 0.3 % (0.0-0.4); Lymphocytes Absolute Auto 0.9 X10*3/uL (1.2-4.9); Mean Corpuscular HGB Conc 30.8 g/dl (31.0-35.0); Mean Corpuscular Hemoglobin 25.5 pg (27.0-33.0); Mean Corpuscular Volume 83.0 fL (80.0-98.0); NRBC Abs Auto 0.000 X10*3/uL (0.0-0.012); NRBC Pct Auto 0.0 /100WBC (0.0-0.2); Platelet Count 234 X10*3/uL (160-400); Red Blood Count 4.11 X10*6/uL (4.20-5.50); White Blood Count 3.5 X10*3/uL (4.8-10.8)
[2025-08-23 12:43] LABS: Anion Gap 12 (12-20); Blood Urea Nitrogen 24 mg/dL (9-16); Calcium 9.6 mg/dL (8.4-10.2); Carbon Dioxide 24 mmol/L (22-29); Chloride 110 mmol/L (96-108); Creatinine Clr Calc Pharmacy 80.9; Estimated Glomerular Filt Rate > 60; Potassium 3.8 mmol/L (3.3-5.1); Sodium 142 mmol/L (135-145)
[2025-08-23 15:28] VITALS: BP 177/81; PULSE 98; RESP 18; TEMP 36.9; O2SAT 100
--- OUTSIDE RECORDS SUMMARY | 2025-08-23 16:48 | XMS_ITS | Clinical Summary ---
Author Organization [facility] [place] [address] Phone Care Team Providers Care Rivet Sticker Name Role Phone Physician, Pcp Unknown Primary Care Provider Talia vailable Allergies Active Allergy Reactions Criticality Noted Date Comments Benadryl Allergy Decongestant Anaphylaxis High 06/30 Diphenhydramine Hcl Unknown 08/02/2025 Hydroxyzine Angioedema High 07/02/2025 Risperidone Unknown 06/30/2025 Trazodone Unknown 08/02/2025 Medications ferrous sulfate 325 mg (65 mg elemental [...] mouth at bedtime as needed for sleep. Active methadone (DOLOPHINE) 10 mg tabletIndicati ons:Septic arthritis of lumbar spine (CMS/HCC V24) Take 5 tablets (50 mg total) by mouth 1 (one) time each day. Max Daily Amount: 50 mg Active ascorbic acid (VITAMIN C) 250 mg tablet Take 1 tablet (250 mg total) by mouth 1 (one) time each day. 5 08/11/20 25 buprenorphine- naloxone (SUBOXONE) 2-0.5 mg [address] tablet Place 1 tablet under the tongue 2 (two) times a day. After the medication is completely dissolved, take a large sip of water, swish it around teeth and gums, and swallow. Wait at least 1 hour before brushing teeth to avoid damage to your teeth. Max Daily Amount: 2 tablets 5 08/21/20 25 Discontinu ed(Formula ry change) cariprazine (VRAYLAR) 1.5 mg capsule Take 1 capsule (1.5 mg total) by mouth 1 (one) time each day for 14 days. 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 Bacteremia 07/01/2025 Low back pain 06/30/2025 Encounters Date Type Department Care Team Description 08/21/2025 9:33 AM EST - 08/23/2025 4:56 AM EST Hospital Encounter [facility] [address] [place] [address] Candi Donaldson MD Sondhi, Vikram, MD Zipagan, Maged Jara MD Septic arthritis of lumbar spine ([facility] V24) (Primary Dx); Arm ulcer, with fat layer exposed; Cellulitis of upper extremity, unspecified laterality; Opiate abuse, continuous (CMS/[facility] V24, CMS/[facility] V28) Discharge Disposition: Left Against Medical Advice 07/02/2025 5:59 PM EDT - 07/16/2025 11:00 PM EST Hospital Encounter [facility] [address] [place] [address] Adrian Rodriguez MD Jones, Christopher, MD Bukalo, Nermina, MD Surendran, Anupama, MD Rasul, Yar M, MD Seralathan, Manikandan, MD Sepsis due to methicillin resistant Staphylococcus aureus (MRSA) without acute organ dysfunction (CMS/[facility] V24, CMS/[facility] V28) (Primary Dx); Bacteremia; Septic arthritis of intervertebral joint ([facility] V24); Septic arthritis of lumbar spine ([facility] V24) Discharge Disposition: Left Against Medical Advice 06/30/2025 7:05 AM EDT - 07/02/2025 9:06 AM EDT Hospital Encounter [facility] [address] [place] [address] Enriqueta Dunaway MD Alam, Aroosa, MD Symptomatic anemia (Primary Dx); Bilateral low back pain without sciatica, unspecified chronicity; Bacteremia; Low back pain Discharge Disposition: Left Against Medical Advice from Last 3 Months Medical History Medical History Date Comments Anemia Disease of thyroid gland Anxiety Depression Social History Tobacco Use Types Packs/Day Years Used Date Smoking Tobacco: Never Smokeless Tobacco: Never Tobacco Cessation:Counseling Given: Not Answered Housing Instability Answer Date Recorde d Are [...] for your loved ones. For example, child daycare worker or elderly care for an older adult? [...] PM EST Sexual Orientation Not on file Last Filed [...] Mass Index 25 08/21/2025 9:20 AM EST Plan of Treatment Upcoming Encounters Date Type Department Care Team (Late st Contact Info) Description 09/10/2025 8:00 AM EST Clinical Support [facility] [address] [place] [phone] Health Maintenance Due Date Last Done Comments [...] Visit 06/30/2025 Social Influencers of Health Screening 08/21/2026 08/21/2025 RSV Immunization Adult Patients (1 - 1-dose [...] URINE DIAGNOSTIC STAT 08/21/2025 11:01 AM EST [facility]AS URINE CULTURE TUBE Routine 08/21/20 25 10:51 AM EST EXTRA TUBES Routine 08/21/2025 10:51 AM EST URINALYSIS WITH REFLEX MICROSCOPIC STAT 08/21/2025 10:51 AM EST URINALYSIS WITH REFLEX MICROSCOPIC STAT 08/21/2025 10:51 AM EST DRUG ABUSE SCREEN 8A PANEL, URINE STAT 08/21/2025 10:51 AM EST VANCOMYCIN, RANDOM Add-On 08/21/2025 10 :48 AM EST ETHANOL STAT 08/21/2025 10:48 AM EST TROPONIN I HIGH SENSITIVITY STAT 08/21/2025 10:48 AM EST CBC WITH AUTO DIFFERENTIAL STAT 08/21/2025 10:48 AM EST COMPREHENSIVE METABOLIC PANEL STAT 08/21/2025 10:48 AM EST CBC AND DIFFERENTIAL STAT 08/21/2025 10:48 AM EST LACTATE, WITH REFLEX STAT 08/21/2025 10:48 AM EST CULTURE BLOOD STAT 08/21/2025 10:48 AM EST CULTURE BLOOD STAT 08/21/2025 10:48 AM EST CREATININE, SERUM Routine 07/13/2025 10: 28 PM [...] TROUGH Timed 07/06/2025 9: 51 AM EDT [place] IMMUNOFIXATION ELECTROPHORESIS SERUM Routine 07/06/2025 5:46 AM EDT [place] PROTEIN ELECTROPHORETIC FRACTIONATION & QUANTITATION SERUM Routine [...] EDT from Last 3 Months Results * (ABNORMAL) Vancomycin, trough (08/23/2025 12:54 AM EST) Only the most recent of8 resultswithin the time period is included. Vancomycin Trough 7.8(L) 10.0 - 20.0 mcg/mL 08/23/2025 1:46 AM EST [facility] Blood Venous blood specimen / Unknown Venipuncture / Unknown 08/23/2025 12:54 AM EST 08/23/2025 1:04 AM EST us Titus BURKS LAB BLOOD ORDERABLES Jimena l Result [facility]) [facility] [address] [place] [address], * ECG-Annotated (08/23/2025) us Provider Onbase MD ECG ORDERABLES Final Result * (ABNORMAL) CBC auto differential (08/22/2025 5:55 AM EST) Only the most recent of11 resultswithin the time period is included. WBC 3.5(L) 4.8 - 10.8 K/mcL LAB HEMETOLOGY METHOD 08/22/2025 6:54 AM [facility] RBC 3.90 3.80 - 4.80 M/mcL LAB HEMETOLOGY METHOD 08/22/2025 6:54 AM [facility] Hemoglobin 9.9(L) 11.5 - 16.0 g/dL LAB HEMETOLOGY METHOD 08/22/2025 6:54 AM [facility] Hematocrit 32.2(L) 35.0 - 47.0 % LAB HEMETOLOGY METHOD 08/22/2025 6:54 AM [facility] MCV 83.0 79.0 - 98.0 FL LAB HEMETOLOGY METHOD 08/22/2025 6:54 AM [facility] MCH 25.5(L) 27.0 - 32.0 pcg LAB HEMETOLOGY METHOD 08/22/2025 6:54 AM [facility] MCHC 30.7(L) 32.0 - 37.0 g/dL LAB HEMETOLOGY METHOD 08/22/2025 6:54 AM [facility] RDW 22.5(H) 11.0 - 15.0 % LAB HEMETOLOGY METHOD 08/22/2025 6:54 AM [facility] Platelets 234 130 - 400 K/mcL LAB HEMETOLOGY METHOD 08/22/2025 6:54 AM [facility] MPV 9.5 7.0 - 11.0 FL LAB HEMETOLOGY METHOD 08/22/2025 6:54 AM [facility] NRBC 0.0 <1.0 % LAB HEMETOLOGY METHOD 08/22/2025 6:54 AM [facility] NRBC Absolute 0.00 <0.10 K/mcL LAB HEMETOLOGY METHOD 08/22/2025 6:54 AM [facility] Neutrophils Relative 62.7 % LAB HEMETOLOGY METHOD 08/22/2025 6:54 AM [facility] Lymphocytes Relative 22.8 % LAB HEMETOLOGY METHOD 08/22/2025 6:54 AM [facility] Monocytes Relative 9.7 % LAB HEMETOLOGY METHOD 08/22/2025 6:54 AM [facility] Eosinophils Relative 3.4 % LAB HEMETOLOGY METHOD 08/22/2025 6:54 AM [facility] Basophils Relative 1.1 % LAB HEMETOLOGY METHOD 08/22/2025 6:54 AM [facility] Immature Granulocytes Relative 0.3 % LAB HEMETOLOGY METHOD 08/22/2025 6:54 AM [facility] Neutrophils Absolute 2.20 1.50 - 7.00 K/mcL LAB HEMETOLOGY METHOD 08/22/2025 6:54 AM [facility] Lymphocytes Absolute 0.80(L) 1.00 - 5.00 K/mcL LAB HEMETOLOGY METHOD 08/22/2025 6:54 AM [facility] Monocytes Absolute 0.34 0.20 - 1.00 K/mcL LAB HEMETOLOGY METHOD 08/22/2025 6:54 AM [facility] Eosinophils Absolute 0.12 0.00 - 0.50 K/mcL LAB HEMETOLOGY METHOD 08/22/2025 6:54 AM [facility] Basophils Absolute 0.04 0.00 - 0.20 K/mcL LAB HEMETOLOGY METHOD 08/22/2025 6:54 AM [facility] Immature Granulocytes Absolute 0.01 0.00 - 0.03 K/mcL LAB HEMETOLOGY METHOD 08/22/2025 6:54 AM [facility] Blood Venous blood specimen / Unknown Venipuncture / Unknown 08/22/2025 5:55 AM EST 08/22/2025 6:25 AM EST us Titus BURKS LAB BLOOD ORDERABLES Jimena l Result [facility] [address] [place] [address], * (ABNORMAL) Comprehensive metabolic panel (08/22/2025 5:55 AM EST) Only the most recent of3 resultswithin the time period is included. Sodium 143 133 - 145 mmol/L 08/22/2025 7:48 AM [facility] Potassium 4.0 3.5 - 5.5 mmol/L 08/22/2025 7:48 AM [facility] Chloride 108 96 - 110 mmol/L 08/22/2025 7:48 AM [facility] CO2 26 21 - 32 mmol/L 08/22/2025 7:48 AM [facility] Anion Gap 9 3 - 11 08/22/2025 7:48 AM [facility] Glucose 97 70 - 100 mg/dL 08/22/2025 7:48 AM [facility] BUN 26(H) 5 - 25 mg/dL 08/22/2025 7:48 AM [facility] Creatinine 0.88 0.50 - 1.10 mg/dL 08/22/2025 7:48 AM [facility] eGFR 81 >=60 mL/min/1. 73m2 08/22/2025 7:48 AM [facility] Comment:Calculation based on the Chronic Kidney Disease Epidemiology Collaboration (CKD-EPI) equation refit without adjustment for race. BUN/Creatinine Ratio 29.5 08/22/2025 7:48 AM [facility] Calcium 8.4(L) 8.5 - 10.5 mg/dL 08/22/2025 7:48 AM [facility] AST (SGOT) 16 10 - 42 unit/L 08/22/2025 7:48 AM [facility] ALT (SGPT) 11 10 - 60 unit/L 08/22/2025 7:48 AM [facility] Alkaline Phosphatase 75 42 - 121 unit/L 08/22/2025 7:48 AM [facility] Total Protein 7.4 6.0 - 8.0 g/dL 08/22/2025 7:48 AM [facility] Albumin 3.7 3.2 - 5.0 g/dL 08/22/2025 7:48 AM [facility] Total Bilirubin 0.2 0.0 - 1.4 mg/dL 08/22/2025 7:48 AM [facility] Blood Venous blood specimen / Unknown Venipuncture / Unknown 08/22/2025 5:55 AM EST 08/22/2025 6:25 AM EST us Titus BURKS LAB BLOOD ORDERABLES Jimena l Result [facility] [address] [place] [address], * Troponin I High Sensitivity (08/21/2025 1:13 PM EST) Only the most recent of2 resultswithin the time period is included. High Sensitivity Troponin I 4 <=34 ng/L 08/21/2025 1:56 PM [facility] Blood Venous blood specimen / Unknown Venipuncture / Unknown 08/21/2025 1:13 PM EST 08/21/2025 1:28 PM EST us Candi Donaldson MD LAB BLOOD ORDERABLES Final Resul t [facility] [place] ([facility]) [facility] [address] [place] [address], * XR Chest 2 Views (08/21/2025 11:20 [...] midportion of the superior vena cava. Code 83544 -------- FINAL REPORT -------- Dictated By: Keron Delacruz Dictated Date: 08/21/2025 11:34 ET Assigned Physician: Keron Delacruz Reviewed and Electronically Signed By: Keron Delacruz Signed Date: 08/21/2025 12:24 ET Workstation ID: [id number] Transcribed By: Self Edit Transcribed Date: 08/21/2025 [...] midportion of the superior vena cava. Code 61205 -------- FINAL REPORT -------- Dictated By: Keron Delacruz Dictated Date: 08/21/2025 11:34 ET Assigned Physician: Keron Delacruz Reviewed and Electronically Signed By: Keron Delacruz Signed Date: 08/21/2025 12:24 ET Workstation ID: [id number] Transcribed By: Self Edit Transcribed Date: 08/21/2025 11:34 ET Candi Donaldson MD IMG XR PROCEDURES Final Result * 12-Lead ECG (08/21/2025 11:06 AM EST) Ventricular Rate ECG 63 BPM GEMUSE Atrial Rate 63 BPM GEMUSE P-R Interval 94 ms GEMUSE QRS Duration 72 ms GEMUSE Q-T Interval 418 ms GEMUSE QTc 427 ms GEMUSE P Wave Marston 47 degrees GEMUSE R Marston -12 degrees GEMUSE ECG Interpretation Sinus rhythm with sinus arrhythmia with short GA When compared with ECG of 15-APR-2020 08:32, Vent. rate has decreased BY 44 BPM Confirmed by DONOVAN LONDON ([id number]) on 08/22/2025 10:58:44 PM GEMUSE 08/21/2025 11:0 6 AM EST 08/22/2025 10:58 PM EST Candi Donaldson MD ECG ORDERABLES Final Result GEMUSE * POC , urine manually resulted (08/21/2025 11:01 AM EST) HCG, Ur POC Negative Negative POC hCG Int QC Pass? Yes Yes Urine Urine specimen obtained by clean catch procedure / Unknown 08/21/2025 11:01 AM EST Candi Donaldson MD POINT OF CARE TEST ENTER/EDIT OR DERABLES Final Result * (ABNORMAL) Urinalysis with reflex microscopic (08/21/2025 10:51 AM EST) Pathologist [facility] Specific [place] Urine 1.027 1.003 - 1.030 LAB URINALYSIS - AUTOMATED METHOD 08/21/2025 11:39 AM [facility] pH, Urine 6.0 5.0 - 8.0 pH LAB URINALYSIS - AUTOMATED METHOD 08/21/2025 11:39 AM [facility] Leukocytes, Urine Negative Negative LAB URINALYSIS - AUTOMATED METHOD 08/21/2025 11:39 AM [facility] Nitrite, Urine Negative Negative LAB URINALYSIS - AUTOMATED METHOD 08/21/2025 11:39 AM [facility] Protein, Urine 30(A) <=Trace mg/dL LAB URINALYSIS - AUTOMATED METHOD 08/21/2025 11:39 AM [facility] Glucose, Urine Negative Negative mg/dL LAB URINALYSIS - AUTOMATED METHOD 08/21/2025 11:39 AM [facility] Ketones, Urine Trace(A) Negative mg/dL LAB URINALYSIS - AUTOMATED METHOD 08/21/2025 11:39 AM [facility] Urobilinogen, Urine 1.0 0.2 - 1.0 mg/dL LAB URINALYSIS - AUTOMATED METHOD 08/21/2025 11:39 AM [facility] Bilirubin, Urine Negative Negative LAB URINALYSIS - AUTOMATED METHOD 08/21/2025 11:39 AM [facility] Blood, Urine Small(A) Negative LAB URINALYSIS - AUTOMATED METHOD 08/21/2025 11:39 AM [facility] RBC, Urine 10(H) 0 - 4 /HPF 08/21/2025 11:39 AM [facility] WBC, Urine 10(H) 0 - 4 /HPF 08/21/2025 11:39 AM [facility] Squamous Epithelial, Urine 40 0 - 60 /LPF 08/21/2025 11:39 AM [facility] Bacteria, Urine Negative Negative /HPF 08/21/2025 11:39 AM [facility] Hyaline Casts, Urine 10(H) 0 - 3 /LPF 08/21/2025 11:39 AM [facility] Urine Urine specimen obtained by clean catch procedure / Unknown Non-blood Collection / Unknown 08/21/2025 10:51 AM EST 08/21/2025 11:13 AM EST us Candi Donaldson MD LAB URINE ORDERABLES Final Resul t Performing Organization Address [facility]/ZIP Co de Phone Number [facility] [address] [place] [address], [place] [phone] * Salas urine culture tube (08/21/2025 10:51 AM EST) Only the most recent of3 resultswithin the time period is included. Extra Tube Hold for add-ons. 08/21/2025 4:01 PM EST [facility] Comment:Auto resulted. Urine Urine specimen obtained by clean catch procedure / Unknown 08/21/2025 10:51 AM EST 08/21/2025 2:31 PM EST us Candi Donaldson MD LAB URINE ORDERABLES Final Resul t Performing Organization Address City/[facility]/ZIP Co de Phone Number [facility] [address] [place] [address], [place] [phone] * (ABNORMAL) Drug abuse screen 8a panel, urine (08/21/2025 10:51 AM EST) Only the most recent of2 resultswithin the time period is included. Amphetamine Screen, Ur Negative Negative 08/21/2025 1:30 PM [facility] Comment:Certain OTC medicati ons containing ephedrine, phenylephrine, pseudoephedrine and phenylpropanolamine can cause false positive results. Barbiturate Screen, Ur Negative Negative 08/21/2025 1:30 PM EST [facility] Benzodiazepine Screen, Ur Negative Negative 08/21/2025 1:30 PM [facility] Cocaine Screen, Ur Positive(A ) Negative 08/21/2025 1:30 PM [facility] Opiate Screen, Ur Positive(A ) Negative 08/21/2025 1:30 PM [facility] Cannabinoid (THC) Screen, Ur Negative Negative 08/21/2025 1:30 PM [facility] Comment:Specimens from patie nts taking pantoprazole sodium (Protonix) have been shown to produce false positive results. Oxycodone Screen, Ur Negative Negative 08/05 1:30 PM [facility] Fentanyl, Ur Positive(A ) Negative 08/21/2025 1:30 PM [facility] Urine Urine specimen obtained by clean catch procedure / Unknown Non-blood Collection / Unknown 08/21/2025 10:51 AM EST 08/21/2025 11:[address] [facility] - 08/21/2025 1:30 PM EST Assay [...] t Performing Organization Address [facility]/ZIP Co de Phone Number [facility] [address] [place] [address], [place] [phone] * Lactate, with reflex (08/21/2025 10:48 AM EST) LACTIC ACID 0.8 0.4 - 2.0 mmol/L 08/21/2025 11:24 AM EST [facility] Blood Venous blood specimen / Unknown Venipuncture / Unknown 08/21/2025 10:48 AM EST 08/21/2025 10:57 AM EST us Candi Donaldson MD LAB BLOOD ORDERABLES Final Resul t Performing Organization Address [facility] Co de Phone Number [facility] [address] [place] [address], [place] [phone] * Ethanol (08/21/2025 10:48 AM EST) Only the most recent of2 resultswithin the time period is included. Pathologist [facility] Ethanol Level <3 0 - 10 mg/dL 08/21/2025 11:55 AM EST [facility] Blood Venous blood specimen / Unknown Venipuncture / Unknown 08/21/2025 10:48 AM EST 08/21/2025 10:58 AM EST us Candi Donaldson MD LAB BLOOD ORDERABLES Final Resul t Performing Organization Address [facility]/ZIP Co de Phone Number [facility] [address] [place] [address], [place] [phone] * Vancomycin random (08/21/2025 10:48 AM EST) Vancomycin Rm <3.0 mcg/mL 08/21/2025 3:17 PM EST [facility] Blood Venous blood specimen / Unknown Venipuncture / Unknown 08/21/2025 10:48 AM EST 08/21/2025 10:58 AM EST Candi Donaldson MD LAB BLOOD ORDERABLES Final Resul t Performing Organization Address [facility] Co de Phone Number [facility] [address] [place] [address], * Creatinine serum (07/13/2025 10:28 PM EST) Only the most recent of2 resultswithin the time period is included. Creatinine 0.74 0.50 - 1.10 mg/dL LAB CHEMISTRY METHOD 07/13/2025 10:59 PM EST [facility] eGFR 100 >=60 mL/min/1. 73m2 LAB CHEMISTRY METHOD 07/13/2025 10:59 PM EST [facility] Comment:Calculation based on the Chronic Kidney Disease Epidemiology Collaboration (CKD-EPI) equation refit without adjustment for race. Blood Venous blood specimen / Unknown Venipuncture / Unknown 07/13/2025 10:28 PM EST 07/13/2025 10:37 PM EST Prabhjot Neely MD LAB BLOOD ORDERABLES Final Resul t Performing Organization Address [facility] Co de Phone Number [facility] [address] [place] [address], * Insert PICC line (07/09/2025 9:12 PM EST) Narrative Kathy Garcia RN - 07/09/2025 9:12 PM EST Kathy Garcia RN 07/09/2025 9:16 PM PICC Line Insertion Procedure Note Procedure: Insertion of 4F single lumen Bard PowerPICC Lot: [id number] Exp: Indications: Vancomycin IV until08/30/25 Procedure Details: [...] IV THERAPY ORDERABLES Final Resu lt * Magnesium (07/08/2025 6:02 AM EST) Only the most recent of7 resultswithin the time period is included. Pathologist [facility] Magnesium 2.2 1.9 - 2.6 mg/dL LAB CHEMISTRY METHOD 07/08/2025 7:19 AM [facility] Blood Venous blood specimen / Unknown Venipuncture / Unknown 07/08/2025 6:02 AM EST 07/08/2025 6:31 AM EST Gwendolyn BURKS LAB BLOOD ORDERABLES Final Result [facility] [address] [place] [address], [place] [phone] * Basic metabolic panel (07/08/2025 6:02 AM EST) Only the most recent of9 resultswithin the time period is included. Sodium 140 133 - 145 mmol/L LAB CHEMISTRY METHOD 07/08/2025 7:19 AM [facility] Potassium 3.8 3.5 - 5.5 mmol/L LAB CHEMISTRY METHOD 07/08/2025 7:19 AM [facility] Chloride 108 96 - 110 mmol/L LAB CHEMISTRY METHOD 07/08/2025 7:19 AM [facility] CO2 27 21 - 32 mmol/L LAB CHEMISTRY METHOD 07/08/2025 7:19 AM [facility] Anion Gap 5 3 - 11 LAB CHEMISTRY METHOD 07/08/2025 7:19 AM [facility] Glucose 84 70 - 100 mg/dL LAB CHEMISTRY METHOD 07/08/2025 7:19 AM [facility] BUN 22 5 - 25 mg/dL LAB CHEMISTRY METHOD 07/08/2025 7:19 AM [facility] Creatinine 0.81 0.50 - 1.10 mg/dL LAB CHEMISTRY METHOD 07/08/2025 7:19 AM [facility] eGFR 90 >=60 mL/min/1. 73m2 LAB CHEMISTRY METHOD 07/08/2025 7:19 AM [facility] Comment:Calculation based on the Chronic Kidney Disease Epidemiology Collaboration (CKD-EPI) equation refit without adjustment for race. BUN/Creatinine Ratio 27.2 LAB CHEMISTRY METHOD 07/08/2025 7:19 AM [facility] Calcium 8.9 8.5 - 10.5 mg/dL LAB CHEMISTRY METHOD 07/08/2025 7:19 AM [facility] Blood Venous blood specimen / Unknown Venipuncture / Unknown 07/08/2025 6:02 AM EST 07/08/2025 6:31 AM EST us Gwendolyn BURKS LAB BLOOD ORDERABLES Final Result [facility] [address] [place] [address], [place] [phone] * Vascular US duplex upper extremity venous [...] Mabel Lawrence MD 07/08/2025 2:48 PM EST [facility]) [facility] Blood Venous blood specimen / Unknown Venipuncture / Unknown 07/06/2025 5:46 AM EDT 07/06/2025 6:34 AM EDT us Prabhjot Neely MD LAB BLOOD ORDERABLES Final Resul t [facility]) [facility] [address] [place] [address], [place] [phone] * PATHOLOGIST REVIEW PROTEIN ELECTROPHORESIS (07/06/2025 5:46 AM EDT) Pathologist Interpretation Mabel Lawrence MD 07/08/2025 2:48 PM EST [facility] Blood Venous blood specimen / Unknown Venipuncture / Unknown 07/06/2025 5:46 AM EDT 07/06/2025 6:34 AM EDT Gwendolyn Sanchez [place] LAB BLOOD ORDERABLES Final Result [facility] [address] [place] [address], * (ABNORMAL) Hemoglobin electrophoresis (07/06/2025 5:46 AM EDT) Hemoglobin A1 98.0(H) 96.5 - 97.8 % 07/08/2025 11:27 AM EST [facility] Hemoglobin A2 2.0(L) 2.2 - 3.2 % 07/08/2025 11:27 AM EST [facility] Hemoglobin F 0.0 <2.0 % 07/08/2025 11:27 AM EST [facility] Hemoglobin S 0.0 0.0 % 07/08/2025 11:27 AM EST [facility] Hemoglobin C 0.0 0.0 % 07/08/2025 11:27 AM EST [facility] Interpretation See Below 07/08/2025 11:27 AM EST [facility] Comment: No abnormal hemoglobin variants seen on hemoglobin electrophoresis. Hemoglobin A2 is decreased. Common causes include, but are not limited to, iron deficiency, alpha thalassemia, and delta thalassemia. Test performed at [facility], [facility] [address] [place] [address] Magy Concepcion MD, PhD - Airline Counter Agent Blood Venous blood specimen / Unknown Venipuncture / Unknown 07/06/2025 5:46 AM EDT 07/06/2025 6:35 AM EDT Gwendolyn BURKS LAB BLOOD ORDERABLES Final Result [address] [place] [address] * Immunofixation electrophoresis serum (07/06/2025 5:46 AM EDT) Immunofixation Result, Serum IgG Lambda monoclonal immunoglobulins detected. LAB CHEMISTRY METHOD 07/08/2025 2:48 PM [facility] Blood Venous blood specimen / Unknown Venipuncture / Unknown 07/06/2025 5:46 AM EDT 07/06/2025 6:34 AM EDT Prabhjot Neely MD LAB BLOOD ORDERABLES Final Resul t Performing Organization Address City/[facility]/ZIP Co de Phone Number [facility] [address] [place] [address], [place] [phone] * (ABNORMAL) Immunoglobulins IgG, IgA, IgM (07/06/2025 5:46 AM EDT) Total IgG 2,240(H) 549 - 1,584 mg/dL LAB CHEMISTRY METHOD 07/08/2025 11:52 AM [facility] IgA 308 61 - 348 mg/dL LAB CHEMISTRY METHOD 07/08/2025 11:52 AM [facility] IgM 255 23 - 259 mg/dL LAB CHEMISTRY METHOD 07/08/2025 11:52 AM [facility] Blood Venous blood specimen / Unknown Venipuncture / Unknown 07/06/2025 5:46 AM EDT 07/06/2025 6:34 AM EDT us Prabhjot Neely MD LAB BLOOD ORDERABLES Final Resul t [facility] [address] [place] [address], [place] [phone] * (ABNORMAL) Protein electrophoresis, serum (07/06/2025 5:46 AM EDT) Total Protein 7.4 6.0 - 8.0 g/dL LAB CHEMISTRY METHOD 07/08/2025 2:48 PM [facility] Albumin, Serum 2.7(L) 2.9 - 4.1 g/dL LAB CHEMISTRY METHOD 07/08/2025 2:48 PM [facility] Alpha 1 Globulin (g/dL) 0.4 0.1 - 0.5 g/dL LAB CHEMISTRY METHOD 07/08/2025 2:48 PM [facility] Alpha 2 Globulin (g/dL) 1.0 0.7 - 1.5 g/dL LAB CHEMISTRY METHOD 07/08/2025 2:48 PM [facility] Beta (g/dL) 1.0 0.7 - 1.5 g/dL LAB CHEMISTRY METHOD 07/08/2025 2:48 PM [facility] Gamma Globulin (g/dL) 2.4(H) 0.7 - 1.9 g/dL LAB CHEMISTRY METHOD 07/08/2025 2:48 PM [facility] SPEP Interpretation Monoclonal gammopathy Abnormal pattern with immeasurable M-spike of gamma globulin mobility. Serum Immunofixation performed on this specimen demonstrated IgG Lambda monoclonal protein. LAB CHEMISTRY METHOD 07/08/2025 2:48 PM [facility] Blood Venous blood specimen / Unknown Venipuncture / Unknown 07/06/2025 5:46 AM EDT 07/06/2025 6:34 AM EDT Gwendolyn BURKS LAB BLOOD ORDERABLES Final Result [facility] [address] [place] [address], [place] [phone] * Protein, total (07/06/2025 5:46 AM EDT) [facility] Total Protein 7.4 6.0 - 8.0 g/dL LAB CHEMISTRY METHOD 07/06/2025 7:47 AM EDT [facility] Blood Venous blood specimen / Unknown Venipuncture / Unknown 07/06/2025 5:46 AM EDT 07/06/2025 6:34 AM EDT Gwendolyn Sanchez [place] LAB BLOOD ORDERABLES Final Result Performing Organization Address [facility]/ZIP Co de Phone Number [facility] [address] [place] [address], [place] [phone] * (ABNORMAL) Iron (07/06/2025 5:46 AM EDT) [facility] Iron 32(L) 40 - 150 mcg/dL LAB CHEMISTRY METHOD 07/06/2025 7:45 AM EDT [facility] Comment:Results verified by repeat testing Blood Venous blood specimen / Unknown Venipuncture / Unknown 07/06/2025 5:46 AM EDT 07/06/2025 6:34 AM EDT Gwendolyn Sanchez [facility] BLOOD ORDERABLES Final Result Performing Organization Address [facility] de Phone Number [facility] [address] [place] [address], [place] [phone] * (ABNORMAL) Urinalysis with reflex microscopic and culture (07/05/2025 3:58 PM EDT) Only the most recent of2 resultswithin the time period is included. [facility] Specific [place] Urine 1.009 1.003 - 1.030 LAB URINALYSIS - AUTOMATED METHOD 07/05/2025 4:31 PM EDT [facility] pH, Urine 7.5 5.0 - 8.0 pH LAB URINALYSIS - AUTOMATED METHOD 07/05/2025 4:31 PM EDT [facility] Leukocytes, Urine Trace(A) Negative LAB URINALYSIS - AUTOMATED METHOD 07/05/2025 4:31 PM [facility] Nitrite, Urine Negative Negative LAB URINALYSIS - AUTOMATED METHOD 07/05/2025 4:31 PM [facility] Protein, Urine Negative <=Trace mg/dL LAB URINALYSIS - AUTOMATED METHOD 07/05/2025 4:31 PM [facility] Glucose, Urine Negative Negative mg/dL LAB URINALYSIS - AUTOMATED METHOD 07/05/2025 4:31 PM [facility] Ketones, Urine Negative Negative mg/dL LAB URINALYSIS - AUTOMATED METHOD 07/05/2025 4:31 PM [facility] Urobilinogen, Urine 0.2 0.2 - 1.0 mg/dL LAB URINALYSIS - AUTOMATED METHOD 07/05/2025 4:31 PM [facility] Bilirubin, Urine Negative Negative LAB URINALYSIS - AUTOMATED METHOD 07/05/2025 4:31 PM [facility] Blood, Urine Negative Negative LAB URINALYSIS - AUTOMATED METHOD 07/05/2025 4:31 PM [facility] RBC, Urine 3.3 0 - 4 /HPF LAB URINALYSIS - AUTOMATED METHOD 07/05/2025 4:31 PM [facility] WBC, Urine 1.8 0 - 4 /HPF LAB URINALYSIS - AUTOMATED METHOD 07/05/2025 4:31 PM [facility] Squamous Epithelial, Urine 9 0 - 60 /LPF LAB URINALYSIS - AUTOMATED METHOD 07/05/2025 4:31 PM [facility] Bacteria, Urine Negative Negative /HPF LAB URINALYSIS - AUTOMATED METHOD 07/05/2025 4:31 PM [facility] Hyaline Casts, Urine 0.0 0 - 3 /LPF LAB URINALYSIS - AUTOMATED METHOD 07/05/2025 4:31 PM EDT [facility] Urine Urine specimen obtained by clean catch procedure / Unknown Non-blood Collection / Unknown 07/05/2025 3:58 PM EDT 07/05/2025 4:04 PM EDT us Gwendolyn BURKS LAB URINE ORDERABLES Final Result Performing Organization Address [facility]/ZIP De de Phone Number [facility] [address] [place] [address], [place] [phone] * Chlamydia trachomatis and Neisseria gonorrhoeae molecular study (07/05/2025 3:58 PM EDT) Pathologist [facility] Neisseria gonorrhoeae PCR Negative Negative LAB MOLECULAR DIAGNOSTICS METHOD 07/06/2025 10:01 AM EDT [facility] Chlamydia trachomatis PCR Negative Negative LAB MOLECULAR DIAGNOSTICS METHOD 07/06/2025 10:01 AM EDT [facility] Urine Urine specimen obtained by clean catch procedure / Unknown Non-blood Collection / Unknown 07/05/2025 3:58 PM EDT 07/05/2025 4:04 PM EDT us Gwendolyn BURKS LAB MICROBIOLOGY - GENERAL ORDERABLES Final Result Performing Organization Address [facility] de Phone Number [facility] [address] [place] [address], [place] [phone] * Culture urine (07/05/2025 3:58 PM EDT) Only the most recent of2 resultswithin the time period is included. Culture, Urine No growth 07/06/2025 1:27 PM EDT [facility] Urine Urine specimen obtained by clean catch procedure / Unknown Non-blood Collection / Unknown 07/05/2025 3:58 PM EDT 07/05/2025 4:31 PM EDT us Gwendolyn BURKS LAB MICROBIOLOGY - GENERAL ORDERABLES Final Result Performing Organization Address [facility] Co de Phone Number [facility] [address] [place] [address], [place] [phone] * Culture blood (07/05/2025 11:20 AM EDT) Only the most recent of9 resultswithin the time period is included. [facility] Culture, Blood No growth at 5 days 07/10/2025 11:01 AM EST [facility] Blood Venous blood specimen / Unknown Venipuncture / Unknown 07/05/2025 11:20 AM EDT 07/05/2025 11:42 AM EDT Gwendolyn Sanchez [facility] MICROBIOLOGY - GENERAL ORDERABLES Final Result Performing Organization Address [facility] de Phone Number [facility] [address] [place] [address], [place] [phone] * (ABNORMAL) Lactate dehydrogenase (07/05/2025 6:36 AM EDT) Only the most recent of2 resultswithin the time period is included. [facility] LDH 258(H) 120 - 246 unit/L LAB CHEMISTRY METHOD 07/05/2025 8:59 AM EDT [facility] Comment:Results verified by repeat testing Blood Venous blood specimen / Unknown Venipuncture / Unknown 07/05/2025 6:36 AM EDT 07/05/2025 6:58 AM EDT Gwendolyn Sanchez [place] LAB BLOOD ORDERABLES Final Result Performing Organization Address [facility] Co de Phone Number [facility] [address] [place] [address], [place] [phone] * (ABNORMAL) Haptoglobin (07/05/2025 6:36 AM EDT) Only the most recent of2 resultswithin the time period is included. [facility] Haptoglobin 369(H) 16 - 200 mg/dL LAB CHEMISTRY METHOD 07/05/2025 8:21 AM [facility] Blood Venous blood specimen / Unknown Venipuncture / Unknown 07/05/2025 6:36 AM EDT 07/05/2025 6:58 AM EDT us Gwendolyn BURKS LAB BLOOD ORDERABLES Final Result [facility] [address] [place] [address], [place] [phone] * (ABNORMAL) Hepatic function panel (07/05/2025 6:36 AM EDT) Only the most recent of2 resultswithin the time period is included. [facility] Total Protein 8.3(H) 6.0 - 8.0 g/dL LAB CHEMISTRY METHOD 07/05/2025 8:47 AM [facility] Albumin 2.9(L) 3.2 - 5.0 g/dL LAB CHEMISTRY METHOD 07/05/2025 8:47 AM [facility] Total Bilirubin 0.2 0.0 - 1.4 mg/dL LAB CHEMISTRY METHOD 07/05/2025 8:47 AM [facility] Bilirubin, Direct <0.1 0.0 - 0.3 mg/dL LAB CHEMISTRY METHOD 07/05/2025 8:47 AM [facility] Bilirubin, Indirect LAB CHEMISTRY METHOD 07/05/2025 8:47 AM [facility] Comment:Unable to calculate Indirect Bilirubin. ALT (SGPT) 15 10 - 60 unit/L LAB CHEMISTRY METHOD 07/05/2025 8:47 AM [facility] AST (SGOT) 17 10 - 42 unit/L LAB CHEMISTRY METHOD 07/05/2025 8:47 AM [facility] Alkaline Phosphatase 76 42 - 121 unit/L LAB CHEMISTRY METHOD 07/05/2025 8:47 AM EDT [facility] Blood Venous blood specimen / Unknown Venipuncture / Unknown 07/05/2025 6:36 AM EDT 07/05/2025 6:58 AM EDT Gwendolyn BURKS LAB BLOOD ORDERABLES Final Result Performing Organization Address City/[facility]/ZIP Co de Phone Number [facility] [address] [place] [address], [place] [phone] * (ABNORMAL) AST, ALT, Bilirubin ELR state reportables (07/04/2025 11:48 AM EDT) Only the most recent of2 resultswithin the time period is included. ALT (SGPT) 8(L) 10 - 60 unit/L LAB CHEMISTRY METHOD 07/04/2025 4:27 PM EDT [facility] AST (SGOT) 12 10 - 42 unit/L LAB CHEMISTRY METHOD 07/04/2025 4:27 PM EDT [facility] Bilirubin, Direct <0.1 0.0 - 0.3 mg/dL LAB CHEMISTRY METHOD 07/04/2025 4:27 PM EDT [facility] Total Bilirubin 0.2 0.0 - 1.4 mg/dL LAB CHEMISTRY METHOD 07/04/2025 4:27 PM EDT [facility] Blood Venous blood specimen / Unknown Venipuncture / Unknown 07/04/2025 11:48 AM EDT 07/04/2025 12:02 PM EDT us Julianna Orozco MD LAB BLOOD ORDERABLES Final Resul t Performing Organization Address City/[facility]/ZIP Co de Phone Number [facility] [address] [place] [address], [place] [phone] * (ABNORMAL) Hepatitis C virus quantitative molecular study (07/04/2025 11:48 AM EDT) [facility] HCV Qual Interp Detected (A) Not Detected LAB MOLECULAR DIAGNOSTICS METHOD 07/04/2025 4:24 PM EDT [facility] HCV RNA Quantitative 844,418( H) <12 I Unit/mL LAB MOLECULAR DIAGNOSTICS METHOD 07/04/2025 4:24 PM EDT [facility] HCV RNA Quantitative Log 5.93(H) <1.08 Log IU/mL LAB MOLECULAR DIAGNOSTICS METHOD 07/04/2025 4:24 PM EDT [facility] Blood Venous blood specimen / Unknown Venipuncture / Unknown 07/04/2025 11:48 AM EDT 07/04/2025 12:02 PM EDT Julianna Orozco MD LAB BLOOD ORDERABLES Final Resul t [facility] [address] [place] [address], [place] [phone] * (ABNORMAL) Blood culture pathogens molecular study (2025 1:35 PM EDT) Only the most recent of2 resultswithin the time period is included. [facility] Staphylococcus aureus Detected (A) Not Detected LAB MICROBIOLOGY METHOD 07/04/2025 4:04 PM EDT [facility] mecA/C and MREJ (MRSA) Detected (A) Not Detected LAB MICROBIOLOGY METHOD 07/04/2025 4:04 PM EDT [facility] Comment:mecA/C and MREJ Gene Detected: Indicates Methicillin Resistant Staphylococcus. Blood Venous blood specimen / Unknown Venipuncture / Unknown 2025 1:35 PM EDT 2025 1:39 PM EDT Julianna Orozco MD LAB MICROBIOLOGY - GENERAL ORDER RICARDO Final Result [facility] [address] [place] [address], * (ABNORMAL) Hepatitis C antibody (2025 6:10 AM EDT) Hepatitis C Antibody Positive (A) Negative LAB CHEMISTRY METHOD 2025 10:57 PM EDT [facility] Comment:If confirmation of t his [...] t Performing Organization Address [facility] Co de Phone Number [facility] [address] [place] [address], * HIV 1,2 antibody, p24 antigen with reflex to differentiation (2025 6:10 AM EDT) Pathologist [facility] HIV Combo AB/AG Negative Negative LAB CHEMISTRY METHOD 2025 10:57 PM EDT [facility] Blood Venous blood specimen / Unknown Venipuncture / Unknown 2025 6:10 AM EDT 2025 7:00 AM EDT Narrative [facility] - 2025 10:57 PM EDT [...] t Performing Organization Address [facility]/ZIP Co de Phone Number [facility] [address] [place] [address], [place] [phone] * Hepatitis B surface antigen with reflex to confirmation (2025 6:10 AM EDT) [facility] Hepatitis B Surface Ag Negative Negative LAB CHEMISTRY METHOD 2025 10:28 PM EDT [facility] Blood Venous blood specimen / Unknown Venipuncture / Unknown 2025 6:10 AM EDT 2025 7:00 AM EDT Narrative [facility] - 2025 10:28 PM EDT Over the counter supplements containing high doses of biotin may interfere with this assay. If interference is suspected, patients shoud be retested after refraining from biotin supplements for 72 hours. Julianna Orozco MD LAB BLOOD ORDERABLES Final Resul t [facility] [address] [place] [address], [place] [phone] * Transfuse RBC, Leukoreduced (2025 5:26 AM EDT) Only the most recent of2 resultswithin the time period is included. Tu BURKS BLOOD TRANSFUSION ORDERABLES Fi nal Result * Prepare RBC: 1 Units, Leukoreduced (07/02/2025 8:35 PM EDT) Only the most recent of3 resultswithin the time period is included. [facility] Product Code [id number] 2025 2:10 AM EDT [facility] Unit Number [id number] 07/03/20 2:10 AM EDT [facility] Crossmatch Compatible 07/02/2025 9:23 PM EDT [facility] Dispense Status Transfused 2025 2:10 AM EDT [facility] Unit ABO Rh APOS 2025 2:10 AM EDT [facility] Unit Expiration Date Time [id number] 2025 2:10 AM EDT [facility] Unit Blood Type 6200 2025 2:10 AM EDT [facility] Blood Venous blood specimen / Unknown 07/02/2025 8:35 PM EDT 06/30/2025 10:26 AM EDT Tu BURKS BLOOD BANK PRODUCT ORDERABLES F inal Result Performing Organization Address [facility] Co de Phone Number [facility] [address] [place] [address], [place] [phone] * (ABNORMAL) C-reactive protein (07/02/2025 8:17 PM EDT) Only the most recent of2 resultswithin the time period is included. C-Reactive Protein 2.10(H) <=0.50 mg/dL LAB CHEMISTRY METHOD 07/02/2025 9:02 PM EDT [facility] Blood Venous blood specimen / Unknown Venipuncture / Unknown 07/02/2025 8:17 PM EDT 07/02/2025 8:27 PM EDT Tu BURKS LAB BLOOD ORDERABLES Final Resu lt Performing Organization Address [facility]/ZIP Co de Phone Number [facility] [address] [place] [address], [place] [phone] * MR Lumbar Spine wo and w [...] lumbar spine with and without gadolinium Comparison: DX/GA/SR - XR L SPINE 2 3 VW [...] lumbar spine with and without gadolinium Comparison: DX/GA/SR - XR L SPINE 2 3 VW - 06/30/25 08:53 EDT Findings: 5 lumbar type vertebral bodies are present by plain film. Alignment is normal. No acute fracture. There is moderate ill-defined STIR signal elevationand enhancement within the left inferior L4 and left superior [id number] facets. There is a peripherally enhancing moderate [...] suggestive of septic arthritis involving the left L4-P7vtbby joint with surrounding cellulitis. 2. Multilevel degenerative [...] by: Rebeka Rawls MD on 07/01/2025 18:21:56 Enriqutea Dunaway MD IMG MRI PROCEDURES Final Resul t * (ABNORMAL) TRANSTHORACIC ECHOCARDIOGRAM (TTE) COMPLETE (07/01/2025 11:06 AM EDT) Left Atrium Minor Marston 4.5 cm CV PACS Left Atrium Major Marston 4.6 cm CV PACS LA Area Sys [...] Volume 80 mL CV PACS MV Deceleration [place] 9.4 m/s2 CV PACS E Wave Deceleration [...] and free t3 (07/01/2025 7:04 AM EDT) Pathologist [facility] TSH 0.57 0.40 - 4.00 mcIU/mL LAB CHEMISTRY METHOD 07/01/2025 6:49 PM EDT [facility] Blood Venous blood specimen / Unknown Venipuncture / Unknown 07/01/2025 7:04 AM EDT 07/01/2025 7:20 AM EDT us Gwendolyn BURKS LAB BLOOD ORDERABLES Final Result [facility] [address] [place] [address], [place] [phone] * (ABNORMAL) Complete blood count (07/01/2025 7:04 AM EDT) Pathologist [facility] WBC 8.8 4.8 - 10.8 K/mcL LAB HEMETOLOGY METHOD 07/01/2025 7:40 AM EDT [facility] RBC 3.70(L) 3.80 - 4.80 M/mcL LAB HEMETOLOGY METHOD 07/01/2025 7:40 AM EDT [facility] Hemoglobin 7.5(L) 11.5 - 16.0 g/dL LAB HEMETOLOGY METHOD 07/01/2025 7:40 AM EDT [facility] Hematocrit 25.8(L) 35.0 - 47.0 % LAB HEMETOLOGY METHOD 07/01/2025 7:40 AM EDT [facility] MCV 69.0(L) 79.0 - 98.0 FL LAB HEMETOLOGY METHOD 07/01/2025 7:40 AM EDT [facility] MCH 20.1(L) 27.0 - 32.0 pcg LAB HEMETOLOGY METHOD 07/01/2025 7:40 AM EDT [facility] MCHC 29.1(L) 32.0 - 37.0 g/dL LAB HEMETOLOGY METHOD 07/01/2025 7:40 AM EDT [facility] RDW 18.1(H) 11.0 - 15.0 % LAB HEMETOLOGY METHOD 07/01/2025 7:40 AM EDT [facility] Platelets 623(H) 130 - 400 K/mcL LAB HEMETOLOGY METHOD 07/01/2025 7:40 AM EDT [facility] MPV 9.5 7.0 - 11.0 FL LAB HEMETOLOGY METHOD 07/01/2025 7:40 AM EDT [facility] NRBC 0.0 <1.0 % LAB HEMETOLOGY METHOD 07/01/2025 7:40 AM EDT [facility] NRBC Absolute 0.00 <0.10 K/mcL LAB HEMETOLOGY METHOD 07/01/2025 7:40 AM EDT [facility] Blood Venous blood specimen / Unknown Venipuncture / Unknown 07/01/2025 7:04 AM EDT 07/01/2025 7:21 AM EDT us Enriqueta Dunaway MD LAB BLOOD ORDERABLES Final Res ult [facility] [address] [place] [address], * (ABNORMAL) Fentanyl and metabolite, quantitative, urine [...] developed and the performance characteristics determined by [facility]. This confirmation testing has not been cleared or approved by the FDA. The laboratory is regulated under CLIA as qualified to perform high-complexity testing. This test is used for patient testing purposes. It should not be regarded as investigational or for research. Test performed at [facility], [address], [place], [place] [id number] Magy Concepcion MD, PhD - Airline Counter Agent Urine Urine specimen from urethra / Unknown Non-blood Collection / Unknown 07/01/2025 2:41 AM EDT 07/01/2025 2:57 AM EDT us Yumiko Shaikh [employer] LAB URINE ORDERABLES Donny sandy Result - Final [facility] [address] [place], [place] [id number] * (ABNORMAL) Methadone confirmation, urine (07/01/2025 2:41 AM EDT) Methadone Confirm Urine 420(H) Negative ng/mL 2025 11:[address] [facility] EDDP Confirm, Urine 1480(H) Negative ng/mL 2025 11:[address] [facility] Creatinine 117 20 - 250 mg/dL 2025 11:[address] [facility] Adulterants Negative 2025 11:[address] [facility] Comment: Confirmation (LC/MS/MS) Decision Limits [...] developed and the performance characteristics determined by [facility]. This confirmation testing has not been cleared or approved by the FDA. The laboratory is regulated under CLIA as qualified to perform high-complexity testing. This test is used for patient testing purposes. It should not be regarded as investigational or for research. Test performed at [facility], [address] [place] [address] Magy Concepcion MD, PhD - Airline Counter Agent Urine Urine specimen from urethra / Unknown Non-blood Collection / Unknown 07/01/2025 2:41 AM EDT 07/01/2025 2:57 AM EDT us Yumiko Shaikh NP LAB URINE ORDERABLES Fin al Result [facility] [address] [place] [address] * SST tube (06/30/2025 6:18 PM EDT) Extra Tube Hold for add-ons. 06/30/2025 8:01 PM EDT [facility] Comment:Auto resulted. Blood Venous blood specimen / Unknown 06/30/2025 6:18 PM EDT 06/30/2025 6:47 PM EDT us Enriqueta Dunaway MD LAB BLOOD ORDERABLES Final Res ult Performing Organization Address [facility]/ZIP Co de Phone Number [facility] [address] [place] [address], [place] [phone] * (ABNORMAL) Soluble transferrin receptor (06/30/2025 6:18 PM EDT) Soluble Transferrin Receptor 56.3(H) 12.2 - 27.3 nmol/L 2025 5:05 PM EDT [facility] Blood Venous blood specimen / Unknown 06/30/2025 6:18 PM EDT 06/30/2025 6:47 PM EDT Narrative [facility] - 2025 5:05 PM EDT Performed at: [facility] [id number] [employer] [place]: Franck Carey MD, Phone: [phone] Yumiko Shaikh NP LAB BLOOD ORDERABLES Fin al Result Performing Organization Address [facility] Co de Phone Number [facility] * (ABNORMAL) Hemoglobin and hematocrit (06/30/2025 6:03 PM EDT) Pathologist [facility] Hemoglobin 7.3(L) 11.5 - 16.0 g/dL LAB HEMETOLOGY METHOD 06/30/2025 7:22 PM EDT [facility] Hematocrit 25.5(L) 35.0 - 47.0 % LAB HEMETOLOGY METHOD 06/30/2025 7:22 PM EDT [facility] Blood Venous blood specimen / Unknown 06/30/2025 6:03 PM EDT 06/30/2025 7:18 PM EDT us Yumiko Shaikh NP LAB BLOOD ORDERABLES Fin al Result Performing Organization Address [facility]/ZIP Co de Phone Number [facility] [address] [place] [address], [place] [phone] * Type and screen (06/30/2025 10:18 AM EDT) ABO Group A 06/30/2025 11:48 AM EDT [facility] Rh Type Positive 06/30/2025 11:48 AM EDT [facility] Antibody Screen Negative 06/30/2025 11:48 AM EDT [facility] Blood Venous blood specimen / Unknown Venipuncture / Unknown 06/30/2025 10:18 AM EDT 06/30/2025 10:26 AM EDT Ivonne BURKS LAB BLOOD BANK TEST ORDERABLE S Final Result [facility]) [facility] [address] [place] [address], * XR Lumbar Spine 2-3 Views (06/30/2025 [...] Signed Date: 06/30/2025 10:10 ET Workstation ID: [id number] Transcribed By: Self Edit Transcribed Date: 06/30/2025 [...] Signed Date: 06/30/2025 10:10 ET Workstation ID: [id number] Transcribed By: Self Edit Transcribed Date: 06/30/2025 10:09 ET Ivonne BURKS IMG XR PROCEDURES Final Resul t * (ABNORMAL) Iron and TIBC (06/30/2025 7:46 AM EDT) Iron 12(L) 40 - 150 mcg/dL LAB CHEMISTRY METHOD 06/30/2025 12:30 PM EDT [facility] TIBC 347 250 - 450 mcg/dL LAB CHEMISTRY METHOD 06/30/2025 12:30 PM EDT [facility] Iron Saturation 3(L) 15 - 50 % LAB CHEMISTRY METHOD 06/30/2025 12:30 PM EDT [facility] Blood Venous blood specimen / Unknown Venipuncture / Unknown 06/30/2025 7:46 AM EDT 06/30/2025 8:53 AM EDT us Yumiko Shaikh [employer] LAB BLOOD ORDERABLES Fin al Result [facility] [address] [place] [address], * (ABNORMAL) Sedimentation rate, automated (06/30/2025 7:46 AM EDT) Sed Rate 89(H) 0 - 20 mm/hr LAB HEMETOLOGY METHOD 06/30/2025 10:50 AM EDT [facility] Blood Venous blood specimen / Unknown Venipuncture / Unknown 06/30/2025 7:46 AM EDT 06/30/2025 8:53 AM EDT Ivonne Henriquez PA LAB BLOOD ORDERABLES Final Re sult Performing Organization Address [facility] Co de Phone Number [facility] [address] [place] [address], [place] [phone] * HCG, quantitative (06/30/2025 7:46 AM EDT) Pathologist [facility] hCG Quant <1 mIU/mL LAB CHEMISTRY METHOD 06/30/2025 2:48 PM EDT [facility] Blood Venous blood specimen / Unknown Venipuncture / Unknown 06/30/2025 7:46 AM EDT 06/30/2025 8:53 AM EDT Narrative [facility] - 06/30/2025 2:48 PM EDT Quantitative HCG Reference Ranges Time after Conception MIU/ML 0.2-1 Week 5-50 1-2 Weeks 50-500 2-3 Weeks 100-5,000 3-4 Weeks 500-10,000 4-5 Weeks 1,000-50,000 5-6 Weeks 10,000-100,000 6-8 Weeks 15,000-200,000 2-3 Months 10,000-100,000 2nd Trimester 1,000-94,000 3rd Trimester 2,500-90,000 Non- Females 1-3 Yumiko Shaikh NP LAB BLOOD ORDERABLES Fin al Result Performing Organization Address [facility]/ZIP Co de Phone Number [facility] [address] [place] [address], * (ABNORMAL) Folate (06/30/2025 7:46 AM EDT) [facility] Folate >20.0(H) 2.8 - 17.0 ng/ml LAB CHEMISTRY METHOD 06/30/2025 12:54 PM EDT [facility] Blood Venous blood specimen / Unknown Venipuncture / Unknown 06/30/2025 7:46 AM EDT 06/30/2025 8:53 AM EDT us Yumiko Shaikh [employer]AY OUT [employer]ER LAB BLOOD ORDERABLES Fin al Result [facility] [address] [place] [address], [place] [phone] * Ferritin (06/30/2025 7:46 AM EDT) [facility] Ferritin 11 8 - 252 ng/mL LAB CHEMISTRY METHOD 06/30/2025 12:54 PM EDT [facility] Blood Venous blood specimen / Unknown Venipuncture / Unknown 06/30/2025 7:46 AM EDT 06/30/2025 8:53 AM EDT us Yumiko Shaikh NP LAB BLOOD ORDERABLES Fin al Result [facility] [address] [place] [address], [place] [phone] * Vitamin B12 (06/30/2025 7:46 AM EDT) [facility] Vitamin B-12 260 250 - 900 pcg/mL LAB CHEMISTRY METHOD 06/30/2025 12:54 PM EDT [facility] Blood Venous blood specimen / Unknown Venipuncture / Unknown 06/30/2025 7:46 AM EDT 06/30/2025 8:53 AM EDT us Yumiko Shaikh [employer] LAB BLOOD ORDERABLES Fin al Result [facility] [address] [place] [address], from Last 3 Months Insurance [facility] MEDICARE Member Subscriber Plan / Payer (Ef fective 2024-Present) Name:KATHY BALLARD Relation to Subscriber:Self Name:Kathy Ballard Payer ID:[id number] Group ID:[id number] Type:Not on file Address: [place] [address] [address] [phone] Advance Directives * Full Code - Confirmed (Latest Code Status on File) Date Activated Date Inactivated Comments 08/21/2025 1:18 PM 08/23/2025 7:06 AM This code status was ascertained in the following way: Code status discussion: discussion with patient To update the patient's code status, place a code status order. Do not modify or discontinue any currently active code status orders. * Full Code - Default Date Activated Date Inactivated Comments 07/04/2025 7:28 [...] currently active code status orders. Care Teams Rivet Sticker Relationship Specialty Start Date End Date Physician, Pcp Unknown PCP - General Internal Medicine 06/30/25
--- OUTSIDE RECORDS SUMMARY | 2025-08-23 16:48 | XMS_ITS | Clinical Summary ---
Author Organization [facility] Address [address] [place] [address] Care Team Providers Care Aerodynamics Professor Name Role Phone Oniel Sanches Primary Care Provider [phone] Allergies Active Allergy Reactions Criticality Noted Date Comments Diphenhydramine Hcl Unknown 08/02/2025 Risperidone Unknown 08/02/2025 Trazodone Unknown 08/02/2025 Medications * This document contains information received from the source organization and may not represent a complete record from that organization. No known medications Encounters Date Type Department Care Team Description 08/02/2025 8:23 PM EST - 08/02/2025 9:39 PM EST Emergency [facility] Emergency Department [address] [place] [address] Gopal Foster MD Vaginal bleeding (Primary Dx) Discharge Disposition: Home or Self Care () 08/02/2025 3:01 PM EST - 08/02/2025 5:07 PM EST Emergency [facility] Emergency Department [address] [place] [id number] Arielle Sánchez MD Vaginal bleeding (Primary Dx) Discharge Disposition: [...] complete this topic Procedures * Due to [place] [employer] law, this organization might not be sharing negative HIV tests. Procedure Name Priority Date/Time Associated Diagnosis Comments SMEAR REVIEW STAT 08/02/2025 2:42 PM EST HCG QUALITATIVE W/REFLEX TO QUANTITATIVE STAT Add-on 08/02/2025 2:42 PM EST BASIC METABOLIC PANEL STAT 08/02/2025 2:42 PM EST CBC AUTO DIFFERENTIAL STAT 08/02/2025 2:42 PM EST from Last 3 Months Results * Due to [place] [employer] law, this organization might not be sharing negative HIV tests. * (ABNORMAL) Smear Review (08/02/2025 2:42 PM EST) Platelet Estimate Adequate Adequate 08/02/2025 3:40 PM EST [facility] RBC Morphology Present(A) Normal, No clinically significant RBC morphology present (ICSH guidelines, 2015). 08/02/2025 3:40 PM EST [facility] Anisocytosis 3+(A) Not Present 08/02/2025 3:40 PM EST [facility] Hypochromia 2+(A) Not Present 08/02/2025 3:40 PM EST [facility] Macrocytes 2+(A) Not Present 08/02/2025 3:40 PM EST [facility] Microcytes 2+(A) Not Present 08/02/2025 3:40 PM EST [facility] Blood Structure of peripheral vein / Unknown Venipuncture / Unknown 08/02/2025 2:42 PM EST 08/02/2025 2:48 PM EST us Protocol Unv Adult Treatment MD LAB BLOOD ORDERA BLES Final Result [facility] [address] [place] [address], * hCG Qualitative w/Reflex to Quantitative (08/02/2025 2:42 PM EST) Pathologist [facility] HCG Qualitative, Serum Negative Negative 08/02/2025 5:05 PM EST [facility] Comment: hCG greater than [...] MD LAB BLOOD ORDERA BLES Final Result [facility] [address] [place] [address], * (ABNORMAL) CBC Auto Differential (08/02/2025 2:42 [...] MD LAB BLOOD ORDERA BLES Final Result [facility] [address] [place] [address], * (ABNORMAL) Basic Metabolic Panel (08/02/2025 2:42 PM EST) NA 140 135 - 145 mmol/L 08/02/2025 3:17 PM EST [facility] K 3.9 3.5 - 5.3 mmol/L 08/02/2025 3:17 PM EST [facility] Cl 103 97 - 110 mmol/L 08/02/2025 3:17 PM EST [facility] CO2 24 22 - 32 mmol/L 08/02/2025 3:17 PM EST [facility] BUN 20 7 - 23 mg/dL 08/02/2025 3:17 PM EST [facility] Creatinine 0.79 0.50 - 1.20 mg/dL 08/02/2025 3:17 PM EST [facility] Glucose 124(H) 65 - 99 mg/dL 08/02/2025 3:17 PM EST [facility] Calcium 9.1 8.6 - 10.5 mg/dL 08/02/2025 3:17 PM EST [facility] Anion Gap 13 5 - 15 08/02/2025 3:17 PM EST [facility] eGFR >90 >=60 mL/min/1. 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
--- OUTSIDE RECORDS SUMMARY | 2025-08-23 16:48 | XMS_ITS ---
Author Organization [facility] Care Team Providers Care Governor Assembler Name Role Phone Lj Cancino Unavailable Unavailable Rasheed Dangelo Unavailable Unavailable Jesús Kenny Unavailable Unavail able Allergies and adverse reactions Code CodeSystem Substance Reaction Severity StartDate Concern Status 3498 RXNORM Benadryl Moderate 07/23/2025 active 16840 RXNORM RisperDAL Moderate 07/23/2025 active 68602 RXNORM traZODone Moderate 07/23/2025 active Care Team Name Role Address Phone Organization Dates Lj Cancino PCP [address], [place] [address], [facility] (Office): [facility] 07/22/2025 - 08/19/2025 Rasheed Dangelo [address] [place] [address], [address], [place] (Office): [facility] 07/22/2025 - 08/19/2025 Jesús Kenny [address] [place] [address], [place], [address], [facility] (Office): [facility] 07/22/2025 - 08/19/2025 Encounters Encounter Type Code Code System Description Performer Discharge Disposition Service Delivery Location Date Ambulatory Encounter CPT Code = [id number] Methicillin resistant Staphylococcus aureus infection Nancy Hoffman Discharge to other destination [facility] Address: [address] [place] [address]. 07/22 Ambulatory Encounter CPT Code = [id number] Opioid abuse Nancy Hoffman Discharge to other destination [facility] Address: [address] [place] [address]. 07/22 Ambulatory Encounter CPT Code = [id number] Bacteremia Nancy Hoffman Discharge to other destination [facility] Address: [address] [place] [address]. 07/22 Ambulatory Encounter CPT Code = [id number] Anemia Nancy Hoffman Discharge to other destination [facility] Address: [address] [place] [address]. 07/22 Ambulatory Encounter CPT Code = [id number] Migraine Nancy Yua Discharge to other destination [facility] Address: [address] [place] [address]. 07/22 Ambulatory Encounter CPT Code = [id number] Posttraumatic stress disorder Nancy Hoffman Discharge to other destination [facility] Address: [address] [place] [address]. 07/22 Ambulatory Encounter CPT Code = [id number] Hypothyroidism Nancy Yua Discharge to other destination [facility] Address: [address] [place] [address]. 07/22 Ambulatory Encounter CPT Code = [id number] Anxiety disorder Nancyfrancisco Yua Discharge to other destination [facility] Address: [address] [place] [address]. 07/22 Ambulatory Encounter CPT Code = [id number] Depressive disorder Nancy Hoffman Discharge to other destination [facility] Address: [address] [place] [address]. 07/22 Ambulatory Encounter CPT Code = [id number] Cocaine abuse Nancy Hoffman Discharge to other destination [facility] Address: [address] [place] [address]. 07/22 Ambulatory Encounter CPT Code = [id number] Insomnia Nancy Hoffman Discharge to other destination [facility] Address: [address] [place] [address]. 07/22 Ambulatory Encounter CPT Code = [id number] Gastroesophageal reflux disease without esophagitis Nancy Hoffman Discharge to other destination [facility] Address: [address] [place] [address]. 07/22 Ambulatory Encounter CPT Code = [id number] Infection by methicillin sensitive Staphylococcus aureus Nancy Hoffman Discharge to other destination [facility] Address: [address] [place] [address]. 07/22 Goals Section Goals Description Status Target Date ACTCeferino Maldonado will choose indepen dent leisure activities and will actively participate in activities of interest _TV,,Movie, phone 1 to 3____ times weekly by next review Active 11/06/2025 ACT.. Kathy will particip ate in1 to 3 __ group programs per week and will maintain social contacts on a daily basis according to preferences by next review. Active 11/06/2025 Act. Kathy will accept on e-to-one activity visits 2 times per week and will participate as evidenced by socializing with TRD by next review Active 11/06/2025 No drug/alcohol use while re siding in the facility Active 11/06/2025 Res will be discharged to [facility] setting with appropriate services when able. Active 11/06/2025 Resident will be free from s igns and symptoms of adverse effects of psychotropic drug use through next review date Active 12/2025 Resident will be out of bed daily Active 11/06/2025 Resident will be receptive t o adequate fluid intake qd until next review Active 11/06/2025 Resident will be safely blandon sferred from bed to chair or wheelchair daily as tolerated without injury Active Resident will complete Asses sment of Needs with Counselor Active 11/06/2025 Resident will have an absenc e or decrease in frequency of trauma related symptoms through next review. Active 11/06/2025 Resident will have no difficulty chewing x 90 da ys Active 11/06/2025 Resident will not develop fu rther complications from altered peripheral perfusion Active 11/06/2025 Resident will not harm thems elves or others secondary to their behaviors Active 11/06/2025 Resident will not sustain a fall related injury by utilizing fall precautions through next review date. Active 11/06/2025 Resident will participate in ADLs as able Active 11/06/2025 Resident will receive staff intervention in ADL Activities Active 11/06/2025 Resident will report relief of pain with treatment/medications as ordered each occurrence until next review Active 11/06/2025 Residents Advanced Directive will be honored thr ough review. Active 11/06/2025 Skin will be free of infection. Active 11/06/2025 Skin will remain intact Active 11/07/19 26 To reduce the risk of transmission of infection Active 11/06/2025 Will have stable weight w/o sig. Changes through NRD. Will tolerate diet with PO meal intake to meet >75% of estimated needs through NRD. No nutrition related complications associated w/ pmhx through NRD. Active 11/06/2025 Immunizations Immunization Status Vaccine Details Vaccine Code CodeSystem Valdo e Notes (MODERNA) COVID-19 Vaccine 2024 - 2025 cancelled SARS-COV-2 (COVID-19) vaccine, mRNA, spike protein, LNP, preservative free, 50 mcg/0.5 mL dose 312 CVX created date: 07/23/2025 consent date: 07/23/2025 Medications Section Medication Name Status Code CodeSystem Dose Route Frequency Admin Type Sig Text Start Date End Date Indication hydrOXYzine HCl Oral Tablet aborted 50 mg Oral as needed PRN Give 50 mg by mouth every 6 hours as neede d for anxie ty 07/25 anxiety Naloxone HCl Liquid 4 MG/0.1ML active 67407 59 RXNORM 1 appli catio n in nostri l as needed PRN 1 appli catio n in nostr il as neede d for Opioi d Induc ed Respi rator y Depre ssion If resp. rate less than 6 per min and opioi d depre ssion suspe cted, rever se w/[place] can A dmini ster 4mg/0 .1ml Nalox one/N arcan intra nasal ly in 1 nostr il W ait 3 minut es. If no respo nse or slow to respo nd, repea t 4mg/0 .1ml in other nostr il C all 911 2024 - Opioid Induced Respiratory Depression oxyCODONE HCl Oral Tablet 10 MG aborted 45433 83 RXNORM 1 table t Oral as needed PRN Give 1 table t by mouth as neede d for Pain 3 times a day 08/06 Pain Ferrous Sulfate Oral Tablet active 324 mg Oral two times a day Routin e Give 324 mg by mouth two times a day for iron defic iency anemi a 2024 - iron deficiency anemia Tubersol Intradermal Solution complet ed 0.1 ml Intrad ermal every day shift Routin e Injec t 0.1 ml intra derma lly every day shift for Scree brent for 1 Day (Step 1- GIVE) TST/P PD (a) Injec t 0.1ml intra derma l D ocume nt in immun tab of resid ent chart . 07/24 Screening Tubersol Intradermal Solution complet ed 0.1 ml Intrad ermal every day shift Routin e Injec t 0.1 ml intra derma lly every day shift for Scree brent for 1 Day (TB STEP 2)TST /PPD (c) Injec t 0.1ml intra derma l 7 days post step 1 S chedu le start date 7 days after resul t read from step 1 Docum ent in immun tab of resid ent chart . 11/25/ 2025 11/26 /2025 Screening Vraylar Oral Capsule 1.5 MG aborted 81228 66 RXNORM 1 capsu le Oral in the morning Routin e Give 1 capsu le by mouth in the [facility] for viral infec tion 07/24 viral infection Suboxone Sublingual Film 2-0.5 MG aborted 99661 03 RXNORM 2 film Sublin gual in the morning Routin e Give 2 film subli ngual ly in the [facility] for ALDAIR 07/23 ALDAIR Gabapentin Oral Capsule active 100 mg Oral three times a day Routin e Give 100 mg by mouth three times a day for nerve pain 2024 - nerve pain Sertraline HCl Oral Tablet 25 MG aborted 98754 0 RXNORM 1 table t Oral in the morning Routin e Give 1 table t by mouth in the [facility] for depre ssion 07/30 depression Vancomycin HCl Intravenous Solution aborted 1 gram Intrav enous every 12 hours Routin e Use 1 gram intra venou sly every 12 hours for MRSA Bacte remia 08/03 MRSA Bacteremia Normal Saline Flush Intravenous Solution 0.9 % active 10 ml Intrav enous every 12 hours Routin e Use 10 ml intra venou sly every 12 hours for IV Line Maint enanc e 2024 - IV Sed [employer] Methadone HCl Oral Concentrate 10 MG/ML active 21290 7 RXNORM 50 ml Oral one time a day Routin e Give 50 ml by mouth one time a day for pain 2024 - pain Acetaminoph en Tablet 325 MG active 34111 2 RXNORM 2 table t Oral as needed PRN Give 2 table t by mouth every 6 hours as neede d for Pain - give 650mg total dose - N OT TO EXCEE D 3 GMS APAP / 24 HOURS AND Give 2 table t by mouth every 6 hours as neede d for [place] aguileraur e - give 650mg total dose - N OT TO EXCEE D 3 GMS APAP / 24 HOURS 2024 - Pain 91210 2 RXNORM 2 table t Oral as needed PRN Give 2 table t by mouth every 6 hours as neede d for Pain - give 650mg total dose - N OT TO EXCEE D 3 GMS APAP / 24 HOURS AND Give 2 table t by mouth every 6 hours as neede d for [place] Alisia ratur e - give 650mg total dose - N OT TO EXCEE D 3 GMS APAP / 24 HOURS 2024 - Elevated Temperature Milk of Magnesia Suspension 400 MG/5ML active 56117 7 RXNORM 30 ml Oral as needed PRN Give 30 ml by mouth as neede d for Const ipati on; Use 1st - Give 30 mL by mouth as neede d for const ipati on 2024 - Constipatio n; Bisacodyl Suppository 10 MG active 9 RXNORM 1 suppo sitor y Rectal as needed PRN Inser t 1 suppo sitor y recta lly as neede d for Const ipati on Step 2-Ins ert 1 supp. recta lly once daily if milk of magne adrian is ineff ectiv e 2024 - Constipatio n Fleet Enema Enema 7-19 GM/118ML active 19946 5 RXNORM 1 appli catio n Rectal as needed PRN Inser t 1 appli catio n recta lly as neede d for Const ipati on Admin ister if Bisac odyl ineff ectiv e. 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) 2024 - - Melatonin Oral Tablet 5 MG active 18846 2 RXNORM 5 mg Oral at bedtime Routin e Give 5 mg by mouth at bedti me for Insom kanwal 2024 - Insomnia Mupirocin External Ointment 2 % aborted 25248 6 RXNORM n/a n/a Topica l every day shift Routin e Apply to [facility] topic ally every day shift for wound treat ment Treat ment Order : APPLY TO BILAT ERAL FOREA RM AND Apply to [facility] FOR[facility] RM topic ally as neede d for MAKENNA GE Treat ment Order : (SPEC GIRISH)A PPLY TO BILAT ERAL FOREA RM 07/30 wound treatment 49447 6 RXNORM n/a n/a Topica l as needed PRN Apply to BL FOREA RM topic ally every day shift for wound treat ment Treat ment Order : APPLY TO BILAT ERAL FOREA RM AND Apply to BL FOREA RM topic ally as neede d for MAKENNA GE Treat ment Order : (SPEC GIRISH)A PPLY TO BILAT ERAL FOREA RM 07/30 SOILAGE hydrOXYzine HCl Oral Tablet aborted 50 mg Oral as needed PRN Give 50 mg by mouth every 6 hours as neede d for anxie ty for 14 Days 07/30 anxiety Vitamin D-3 Oral Capsule active 19462 unit Oral one time a day Routin e Give 90612 unit by mouth one time a day every Mon for Preve ntati ve Maint enanc e for 8 Weeks 09/23 Preventativ e Maintenance Vitamin D3 Oral Capsule 1.25 MG (46337 UT) active 1 capsu le Oral one time a day Routin e Give 1 capsu le by mouth one time a day every 30 day(s ) for Preve ntati ve Maint enanc e 2025 - Preventativ e Maintenance Vancomycin HCl Intravenous Solution 1250 MG/250[place] [address] 10 RXNORM 1250 mg Intrav enous two times a day Routin e Use 1250 mg intra venou sly two times a day for Cellu litis until 08/01 09:00 08/01 Cellulitis Ondansetron HCl Oral Tablet 4 MG complet ed 2 RXNORM 4 mg Oral as needed PRN Give 4 mg by mouth every 4 hours as neede d for Nause a until 08/05 23:59 08/06 Nausea Vancomycin HCl Intravenous Solution 1250 MG/250ML aborted 14142 15 RXNORM 1250 mg Intrav enous two times a day Routin e Use 1250 mg intra venou sly two times a day for Cellu litis 08/05 Cellulitis Vancomycin HCl Intravenous Solution complet ed 1.25 gram Intrav enous every 12 hours Routin e Use 1.25 gram intra venou sly every 12 hours relat ed to FERNANDO MASON (R78. 81) until 08/06 11:00 08/06 - oxyCODONE HCl Oral Tablet 10 MG active 06784 83 RXNORM 1 table t Oral as needed PRN Give 1 table t by mouth every 24 hours as neede d for Pain for 1 Week 08/20 Pain Zolpidem Tartrate Oral Tablet 10 MG active 56336 3 RXNORM 1 table t Oral at bedtime Routin e Give 1 table t by mouth at bedti me relat ed to ODILIA KEBEDE (G47. 00) until 08/29 23:59 08/30 - oxyCODONE HCl Oral Tablet 10 MG aborted 86948 83 RXNORM 1 table t Oral as needed PRN Give 1 table t by mouth every 12 hours as neede d for Pain 08/06 Pain oxyCODONE HCl Oral Tablet [place] [address] 83 RXNORM 1 table t Oral as needed PRN Give 1 table t by mouth every 12 hours as neede d for Pain for 1 Week 08/13 Pain Vancomycin HCl Intravenous Solution complet ed 1.25 gram Intrav enous every 12 hours Routin e Use 1.25 gram intra venou sly every 12 hours relat ed to JORDAN BHATIA N LINDSEY TANT STAPH YLOCO CCUS AUREU S INFEC TIODILIA WRIGHT D SITE (A49. 02) until 08/08 09:59 08/08 - Mupirocin External Ointment 2 % active 38952 6 RXNORM n/a n/a Topica l every day shift Routin e Apply to bilat eral arm topic ally every day shift for wound treat ment AND Apply to bilat eral arm topic ally as neede d for makenna ge 2024 - wound treatment 07833 6 RXNORM n/a n/a Topica l as needed PRN Apply to bilat eral arm topic ally every day shift for wound treat ment AND Apply to bilat eral arm topic ally as neede d for makenna ge 2024 - soilage Vancomycin HCl Intravenous Solution complet ed 1.25 gram Intrav enous every 12 hours Routin e Use 1.25 gram intra venou sly every 12 hours relat ed to METHI CILLI N RESIS TANT STAPH YLOCO CCUS AUREU S INFEC TION, UNSPE CIFIE D SITE (A49. 02);B CRISTI ALEX (R78. 81) until 08/13 12:59 08/13 - Vancomycin HCl Intravenous Solution aborted 1.25 gram Intrav enous two times a day Routin e Use 1.25 gram intra venou sly two times a day for MRSA until 08/13 12:59 08/11 MRSA Vancomycin HCl Intravenous Solution complet ed 1.25 gram Intrav enous two times a day Routin e Use 1.25 gram intra venou sly two times a day for MRSA until 08/15 11:30 08/15 MRSA Vancomycin HCl Intravenous Solution active 1.25 gram Intrav enous every 12 hours Routin e Use 1.25 gram intra venou sly every 12 hours relat ed to METHI CILLI N RESIS TANT STAPH YLOCO CCUS AUREU S INFEC TION, UNSPE CIFIE D SITE (A49. 02) until 08/20 10:42 08/20 - busPIRone HCl Oral Tablet active 7.5 mg Oral two times a day Routin e Give 7.5 mg by mouth two times a day relat ed to ANXIE TY DISOR ELY, UNSPE CIFIE D (F41. 9) 2024 - - Mental Status Section Date Assessment Total Score Description 07/28/2025 BIMS 14 cognitively int act CAM 0 No delirium ind icated PHQ-9 18 moderately kathy re depression 07/28/2025 BIMS 14 cognitively int act CAM 0 No delirium ind icated PHQ-9 18 moderately kathy re depression Insurance Providers Coverage Status Coverage Type Relationship to Subscriber Member Identifier Subscriber Identifier Group Identifier Payer Identifier and Other information 2025 Code: 51 Code System OID:[id number] .[id number]. 5 Code System Name: Source of Payment Typology (PHDSC) Display: Managed Care (Private) Translation: Code: Code System: OID:[id number] .[id number]. 1336 Code System Name: Insurance Type Code ([id number]) Display Name: Health Maintenance Organization (HMO) Plan Code: SELF Code System Name: HL7 RoleCode Code System OID:[id number] .[id number] Display Name: Self [id number] Root: [id number] Payer Name: [facility] Medicaid Address: [address] [place] [address]: [place] State: [place] Country: [facility] Telecom: [phone] Plan of Treatment Section Interventions Intervention Code Code System Display Name Proposed D ate Problems Problem # Description Date of onset Resolved Date Code CodeSystem Concern Status 1 ANEMIA, UNSPECIFIED 07/23/[address] active 2 GASTRO-ESOPHAGEAL REFLUX DISEASE WITHOUT ESOPHAGITIS 07/23/[address] active 3 HYPOTHYROIDISM, UNSPECIFIED 07/23/[address] active 4 INSOMNIA, UNSPECIFIED 07/23/[address] active 5 MIGRAINE, UNSPECIFIED, NOT INTRACTABLE, WITHOUT STATUS MIGRAINOSUS 07/23/[address] active 6 POST-TRAUMATIC STRESS DISORDER, UNSPECIFIED 07/23/[address] active 7 ANXIETY DISORDER, UNSPECIFIED 07/22/[address] active 8 BACTEREMIA 07/22/[address] active 9 COCAINE ABUSE, UNCOMPLICATED 07/22/[address] active 10 DEPRESSION, UNSPECIFIED 07/22/[address] active 11 METHICILLIN RESISTANT STAPHYLOCOCCUS AUREUS INFECTION, UNSPECIFIED SITE 07/22/[address] active 12 METHICILLIN SUSCEPTIBLE STAPHYLOCOCCUS AUREUS INFECTION THE CAUSE OF DISEASES CLASSIFIED ELSEWHERE 07/22/2025 07/26/[address] completed 13 OPIOID ABUSE, UNCOMPLICATED 07/22/[address] active Reason for Referral No Reasons for Referral Entered Diagnostic Results Laboratory Test Results Code Code System Date Test Observation Result Interpretation Reference Range Status Notes LP783 9-6 LOINC 07/24 Vancomy faisal, Trough Complete d Result for: LISSY BALLARD ( 977, F) 123-9 9999- 9 LOINC 07/24 VANCT Value: 14.3 Units: ug/mL Normal 10.0 - 20.0 Final 123-9 9999- 9 LOINC 07/24 Vancomycin, Trough - Normal Final 123-9 9999- 9 LOINC 07/24 Timed Collect ion Fee / Vancomy faisal, Trough Complete d Result for: LISSY BALLARD ( 977, F) 123-9 9999- 9 LOINC 07/24 autoApproveHos tCode - Normal Final LP783 9-6 LOINC 07/25 Complet e Blood Count (CBC) w/Auto Differe ntial Complete d Result for: LISSY BALLARD ( 977, F) 123-9 9999- 9 LOINC 07/25 RDW-SD Value: 74.8 Units: fL High 37.0 - 51.0 Final 123-9 9999- 9 LOINC 07/25 RDW-CV Value: 32.2 Units: % High 11.0 - 16.0 Final 123-9 9999- 9 LOINC 07/25 Compreh ensive Metabol ic Panel (CMP) Complete d Result for: LISSY BALLARD ( 977, F) 123-9 9999- 9 LOINC 07/25 TOTAL PROTEIN Value: 8.8 Units: g/dL High 6.4 - 8.3 Final 123-9 9999- 9 LOINC 07/25 Compreh ensive Metabol ic Panel (CMP) / Lipid Panel / Bilirub in, Direct / TSH (3rd Generat ion) / Vitamin D 25 Hydroxy / Complet e Blood Count (CBC) w/Auto Differe ntial / RBC Morphol ogy Complete d Result for: LISSY BALLARD ( 977, F) 123-9 9999- 9 LOINC 07/25 V25OH Value: <10 Units: ng/ml Low 30 - 100 Final LP783 9-6 LOINC 07/25 Compreh ensive Metabol ic Panel (CMP) Complete d Result for: LISSY BALLARD ( 977, F) 2345- 7 LOINC 07/25 GLUCOSE Value: 90 Units: mg/dL Normal 70 - 120 Final 23452 -6 LOINC 07/25 CALCIUM Value: 9.5 Units: mg/dL Normal 8.4 - 10.2 Final LP783 9-6 LOINC 07/25 Lipid Panel Complete d Result for: LISSY BALLARD ( 977, F) 2571- 8 LOINC 07/25 TRIGLYCERIDE Value: 203 Units: mg/dL High 0 - 200 Final 2085- 9 LOINC 07/[address] Value: 44 Units: mg/dL Normal 35 - 97 Final 123-9 9999- 9 LOINC 07/25 LDL, CALCULATED Value: 104 Units: mg/dL High 0 - 100 Final Result derived from Natan Neville ce: https:/ /pmc.ne bi.nlm. nih.gov /articl es/PMC2 349850/ 123-9 9999- 9 LOINC 07/25 CHOL/HDL RISK FACTOR CT - Normal 0.0 - 4.4 Final 123-9 9999- 9 LOINC 07/25 Complet e Blood Count (CBC) w/Auto Differe ntial Complete d Result for: LISSY BALLARD ( 977, F) 123-9 9999- 9 LOINC 07/25 WBC Value: 5.0 Units: K/uL Normal 4.8 - 10.8 Final LP783 9-6 LOINC 07/25 Compreh ensive Metabol ic Panel (CMP) Complete d Result for: LISSY BALLARD ( 977, F) 123-9 9999- 9 LOINC 07/25 BILIRUBIN TOTAL Value: 0.4 Units: mg/dL Normal 0.0 - 1.2 Final 123-9 9999- 9 LOINC 07/25 eGFR Value: 92 Units: mL/min/ {1.73_m 2} Normal >=90 Final Interpr etation of eGFR: ------- ------- ------- ------- ------- ------- ------- ------- ------- ------- 90 or more Normal Stage 1 (if protein uria) 60-89 Mildly Reduced Stage 2 30-59 Moderat sherice Reduced Stage 3 15-29 Severel y Reduced Stage 4 <15 Kidney Failure Stage 5 Referen ce: http:// nkdep.n .gov/ profess ionals/ index.h tm 123-9 9999- 9 LOINC 07/25 Lipid Panel Complete d Result for: LISSY BALLARD ( 977, F) 123-9 9999- 9 LOINC 07/[address] Value: 189 Units: mg/dL Normal 100 - 200 Final LP783 9-6 LOINC 07/25 Compreh ensive Metabol ic Panel (CMP) Complete d Result for: LISSY BALLARD ( 977, F) 123-9 9999- 9 LOINC 07/25 CO2 Value: 25 Units: mmol/L Normal 22 - 33 Final 123-9 9999- 9 LOINC 07/25 ALT (SGPT) Value: 11 Units: U/L Normal 0 - 31 Final 123-9 9999- 9 LOINC 07/25 Compreh ensive Metabol ic Panel (CMP) / Lipid Panel / Bilirub in, Direct / TSH (3rd Generat ion) / Vitamin D 25 Hydroxy / Complet e Blood Count (CBC) w/Auto Differe ntial / RBC Morphol ogy Complete d Result for: LISSY BALLARD ( 977, F) 123-9 9999- 9 LOINC 07/25 BILIRUBIN DIRECT Value: 0.1 Units: mg/dL Normal 0.0 - 0.5 Final LP783 9-6 LOINC 07/25 Compreh ensive Metabol ic Panel (CMP) Complete d Result for: LISSY BALLARD ( 977, F) 2951- 2 LOINC 07/25 SODIUM Value: 137 Units: mmol/L Normal 133 - 145 Final 3094- 0 LOINC 07/25 BUN Value: 18 Units: mg/dL Normal 6 - 20 Final 718-7 LOINC 07/25 Complet e Blood Count (CBC) w/Auto Differe ntial Complete d Result for: LISSY BALLARD ( 977, F) 718-7 LOINC 07/25 HGB Value: 9.7 Units: g/dL Low 12.1 - 15.7 Final LP783 9-6 LOINC 07/25 Compreh ensive Metabol ic Panel (CMP) Complete d Result for: LISSY BALLARD ( 977, F) 2823- 3 LOINC 07/25 POTASSIUM Value: 3.9 Units: mmol/L Normal 3.3 - 5.1 Final 2075- 0 LOINC 07/25 CHLORIDE Value: 101 Units: mmol/L Normal 96 - 108 Final 789-8 LOINC 07/25 Complet e Blood Count (CBC) w/Auto Differe ntial Complete d Result for: LISSY BALLARD ( 977, F) 789-8 LOINC 07/25 RBC Value: 4.10 Units: M/uL Normal 4.00 - 5.10 Final LP783 9-6 LOINC 07/25 Compreh ensive Metabol ic Panel (CMP) Complete d Result for: LISSY BALLARD ( 977, F) 6768- 6 LOINC 07/25 ALK PHOS Value: 74 Units: U/L Normal 35 - 105 Final 1751- 7 LOINC 07/25 ALBUMIN Value: 4.4 Units: g/dL Normal 3.2 - 5.2 Final 59112 -8 LOINC 07/25 Compreh ensive Metabol ic Panel (CMP) / Lipid Panel / Bilirub in, Direct / TSH (3rd Generat ion) / Vitamin D 25 Hydroxy / Complet e Blood Count (CBC) w/Auto Differe ntial / RBC Morphol ogy Complete d Result for: LISSY BALLARD ( 977, F) 62484 -8 LOINC 07/25 TSH Value: 3.20 Units: u[IU]/m L Normal 0.34 - 5.60 Final LP783 9-6 LOINC 07/25 Compreh ensive Metabol ic Panel (CMP) Complete d Result for: LISSY BALLARD ( 977, F) 2160- 0 LOINC 07/25 CREATININE Value: 0.79 Units: mg/dL Normal 0.70 - 1.50 Final 1920- 8 LOINC 07/25 AST (SGOT) Value: 18 Units: U/L Normal 0 - 31 Final LP783 9-6 LOINC 07/25 Complet e Blood Count (CBC) w/Auto Differe ntial Complete d Result for: LISSY BALLARD ( 977, F) 777-3 LOINC 07/25 PLATELET COUNT Value: 350.0 Units: K/uL Normal 150.0 - 400.0 Final 787-2 LOINC 07/25 MCV Value: 74.0 Units: fL Low 78.0 - 102.0 Final 4544- 3 LOINC 07/25 HCT Value: 30.4 Units: % Low 35.0 - 45.0 Final 785-6 LOINC 07/25 MCH Value: 23.7 Units: pg Low 26.0 - 34.0 Final 786-4 LOINC 07/25 MCHC Value: 32.0 Units: g/dL Normal 30.0 - 37.0 Final 123-9 9999- 9 LOINC 07/25 MPV Value: 8.4 Units: fL Normal 7.2 - 10.3 Final 123-9 9999- 9 LOINC 07/25 NEUTS Value: 60.3 Units: % Normal 40.0 - 70.0 Final 123-9 9999- 9 [facility] 07/25 LYMPHS Value: 26.00 Units: % Normal 20.00 - 40.00 Final 123-9 9999- 9 [facility] 07/25 MONOS Value: 9.90 Units: % Normal 3.00 - 12.00 Final 123-9 9999- 9 [facility] 07/25 EOS Value: 2.70 Units: % Normal 0.00 - 5.00 Final 123-9 9999- 9 [facility] 07/25 BASO Value: 1.10 Units: % Normal 0.00 - 2.00 Final 123-9 [facility]9 9 [facility] 07/25 ABS NEUTROPHILS Value: 3.00 Units: K/uL Normal 1.80 - 7.70 Final 123-9 9999- 9 [facility] 07/25 ABS LYMPHOCYTES Value: 1.30 Units: K/uL Normal 1.00 - 4.30 Final 123-9 9999 9 [facility] 07/25 ABS MONOCYTES Value: 0.50 Units: K/uL Normal 0.20 - 1.00 Final 123-9 9999- 9 [facility] 07/25 ABS EOSINOPHILS Value: 0.10 Units: K/uL Normal 0.02 - 0.50 Final 123-9 9999- 9 [facility] 07/25 ABS BASOPHILS Value: 0.10 Units: K/uL Normal 0.00 - 0.10 Final 123-9 9999- 9 [facility] 07/25 ABS NUCLEATED RBC Value: 0.00 Units: K/uL Normal Final LP783 9-6 [facility] 07/25 RBC Morphol ogy Complete d Result for: LISSY BALLARD ( 977, F) 123-9 9999- 9 [facility] 07/25 ANISOCYTOSIS - Normal Final 123-9 9999- 9 [facility] 07/25 POIK - Normal Final 123-9 9999- 9 [facility] 07/25 MACROCYTOSIS - Normal Final 123-9 9999- 9 [facility] 07/25 MICROCYTOSIS - Normal Final 123-9 9999- 9 [facility] 07/25 HYPOCHROMIA - Normal Final 123-9 9999- 9 LOINC 07/25 POLY - Normal Final 123-9 9999- 9 LOINC 07/25 ACANT - Normal Final 123-9 9999- 9 LOINC 07/25 BSTIP - Normal Final 123-9 9999- 9 LOINC 07/25 ECHI - Normal Final 123-9 9999- 9 LOINC 07/25 ELIPT - Normal Final 123-9 9999- 9 LOINC 07/25 OVAL - Normal Final 123-9 9999- 9 LOINC 07/25 SCHIS - Normal Final 123-9 9999- 9 LOINC 07/25 SPHER - Normal Final 123-9 9999- 9 LOINC 07/25 STOMA - Normal Final 123-9 9999- 9 LOINC 07/25 HELM - Normal Final 123-9 9999- 9 LOINC 07/25 TEAR - Normal Final 123-9 9999- 9 LOINC 07/25 TARG - Normal Final 123-9 9999- 9 LOINC 07/25 HOWJB - Normal Final 123-9 9999- 9 LOINC 07/25 PAPB - Normal Final 123-9 9999- 9 LOINC 07/25 RBC Morphology - Normal Final LP783 9-6 LOINC 07/30 Vancomy faisal, Trough Complete d Result for: LISSY BALLARD ( 977, F) 123-9 9999- 9 LOINC 07/30 VANCT Value: 10.6 Units: ug/mL Normal 10.0 - 20.0 Final 123-9 9999- 9 LOINC 07/30 Vancomycin, Trough - Normal Final 123-9 9999- 9 LOINC 07/30 Timed Collect ion Fee / Vancomy faisal, Trough Complete d Result for: LISSY BALLARD ( 977, F) 123-9 9999- 9 LOINC 07/30 autoApproveHos tCode - Normal Final LP783 9-6 LOINC 07/30 Complet e Blood Count (CBC) w/Auto Differe ntial Complete d Result for: LISSY BALLARD ([facility] 977, F) 123-9 9999- 9 LOINC 07/30 RDW-SD Value: 76.1 Units: fL High 37.0 - 51.0 Final 123-9 9999- 9 LOINC 07/30 RDW-CV Value: 32.1 Units: % High 11.0 - 16.0 Final 123-9 9999- 9 LOINC 07/30 C-React layla Protein (CRP), High Sensiti vity / Compreh ensive Metabol ic Panel (CMP) / Sed Rate / Complet e Blood Count (CBC) w/Auto Differe ntial / RBC Morphol ogy Complete d Result for: LISSY BALLARD ([facility], F) 123-9 9999- 9 LOINC 07/30 ESR Value: 56 Units: mm/h High 0 - 20 Final 123-9 9999- 9 LOINC 07/30 Compreh ensive Metabol ic Panel (CMP) Complete d Result for: LISSY BALLARD ([facility] 97, F) 123-9 9999- 9 LOINC 07/30 TOTAL PROTEIN Value: 7.7 Units: g/dL Normal 6.4 - 8.3 Final 123-9 9999- 9 LOINC 07/30 C-React layla Protein (CRP), High Sensiti vity / Compreh ensive Metabol ic Panel (CMP) / Sed Rate / Complet e Blood Count (CBC) w/Auto Differe ntial / RBC Morphol ogy Complete d Result for: LISSY BALLARD ([facility] 977, F) 123-9 9999- 9 LOINC 07/30 CRPC Value: 4.07 Units: mg/L High 0.00 - 1.00 Final LP783 9-6 LOINC 07/30 Compreh ensive Metabol ic Panel (CMP) Complete d Result for: LISSY BALLARD ([facility] 977, F) 123-9 9999- 9 LOINC 07/30 BILIRUBIN TOTAL Value: 0.3 Units: mg/dL Normal 0.0 - 1.2 Final 123-9 9999- 9 [facility] 07/30 eGFR Value: 108 Units: mL/min/ {1.73_m 2} Normal >=90 Final Interpr etation of eGFR: ------- ------- ------- ------- ------- ------- ------- ------- ------- ------- 90 or more Normal Stage 1 (if protein uria) 60-89 Mildly Reduced Stage 2 30-59 Moderat sherice Reduced Stage 3 15-29 Severel y Reduced Stage 4 <15 Kidney Failure Stage 5 Referarcelia ce: http:// nkdep.n .gov/ profess ionals/ index.h tm 123-9 9999- 9 [facility] 07/30 Complet e Blood Count (CBC) w/Auto Differe ntial Complete d Result for: ETHAN KAMRYNCORBIN Maldonado ( 977, F) 123-9 9999- 9 [facility] 07/30 WBC Value: 4.4 Units: K/uL Low 4.8 - 10.8 Final 2074- 0 [facility] 07/30 Compreh ensive Metabol ic Panel (CMP) Complete d Result for: ETHAN KAMRYNCORBNI Maldonado ( 977, F) 123-9 9999- 9 [facility] 07/30 CO2 Value: 23 Units: mmol/L Normal 22 - 33 Final 123-9 9999- 9 [facility] 07/30 ALT (SGPT) Value: 9 Units: U/L Normal 0 - 31 Final 89219 -6 [facility] 07/30 CALCIUM Value: 8.8 Units: mg/dL Normal 8.4 - 10.2 Final 0- 0 [facility] 07/30 CREATININE Value: 0.66 Units: mg/dL Low 0.70 - 1.50 Final 2345- 7 [facility] 07/30 GLUCOSE Value: 85 Units: mg/dL Normal 70 - 120 Final 3094- 0 [facility] 07/30 BUN Value: 18 Units: mg/dL Normal 6 - 20 Final 2823- 3 LOINC 07/30 POTASSIUM Value: 3.9 Units: mmol/L Normal 3.3 - 5.1 Final 2075- 0 LOINC 07/30 CHLORIDE Value: 108 Units: mmol/L Normal 96 - 108 Final 718-7 LOINC 07/30 Complet e Blood Count (CBC) w/Auto Differe ntial Complete d Result for: LISSY BALLARD ( 977, F) 718-7 LOINC 07/30 HGB Value: 8.9 Units: g/dL Low 12.1 - 15.7 Final 2951- 2 LOINC 07/30 Compreh ensive Metabol ic Panel (CMP) Complete d Result for: LISSY BALLARD ( 977, F) 2951- 2 LOINC 07/30 SODIUM Value: 141 Units: mmol/L Normal 133 - 145 Final 777-3 LOINC 07/30 Complet e Blood Count (CBC) w/Auto Differe ntial Complete d Result for: LISSY BALLARD ( 977, F) 786-4 LOINC 07/30 MCHC Value: 32.4 Units: g/dL Normal 30.0 - 37.0 Final 789-8 LOINC 07/30 RBC Value: 3.64 Units: M/uL Low 4.00 - 5.10 Final 785-6 LOINC 07/30 MCH Value: 24.5 Units: pg Low 26.0 - 34.0 Final 4544- 3 LOINC 07/30 HCT Value: 27.5 Units: % Low 35.0 - 45.0 Final 787-2 LOINC 07/30 MCV Value: 75.5 Units: fL Low 78.0 - 102.0 Final 777-3 LOINC 07/30 PLATELET COUNT Value: 269.0 Units: K/uL Normal 150.0 - 400.0 Final 6768- 6 LOINC 07/30 Compreh ensive Metabol ic Panel (CMP) Complete d Result for: LISSY BALLARD ( 977, F) 1920- 8 [facility] 07/30 AST (SGOT) Value: 15 Units: U/L Normal 0 - 31 Final 1751- 7 [facility] 07/30 ALBUMIN Value: 3.9 Units: g/dL Normal 3.2 - 5.2 Final 6768- 6 [facility] 07/30 ALK PHOS Value: 62 Units: U/L Normal 35 - 105 Final LP783 9-6 [facility] 07/30 Complet e Blood Count (CBC) w/Auto Differe ntial Complete d Result for: LISSY BALLARD ( 977, F) 123-9 9999- 9 [facility] 07/30 MPV Value: 8.9 Units: fL Normal 7.2 - 10.3 Final 1239 9999 9 [facility] 07/30 NEUTS Value: 61.2 Units: % Normal 40.0 - 70.0 Final [facility]9 9 9 [facility] 07/30 LYMPHS Value: 26.00 Units: % Normal 20.00 - 40.00 Final 1239 9999 9 [facility] 07/30 MONOS Value: 9.70 Units: % Normal 3.00 - 12.00 Final [facility]9 9 9 [facility] 07/30 EOS Value: 1.90 Units: % Normal 0.00 - 5.00 Final [facility]9 9999- 9 [facility] 07/30 BASO Value: 1.20 Units: % Normal 0.00 - 2.00 Final [facility]9 9 9 [facility] 07/30 ABS NEUTROPHILS Value: 2.70 Units: K/uL Normal 1.80 - 7.70 Final [facility]9 9999 9 [facility] 07/30 ABS LYMPHOCYTES Value: 1.10 Units: K/uL Normal 1.00 - 4.30 Final [facility]9 9 9 [facility] 07/30 ABS MONOCYTES Value: 0.40 Units: K/uL Normal 0.20 - 1.00 Final [facility]9 9999 9 [facility] 07/30 ABS EOSINOPHILS Value: 0.10 Units: K/uL Normal 0.02 - 0.50 Final 123-9 9999- 9 LOINC 07/30 ABS BASOPHILS Value: 0.10 Units: K/uL Normal 0.00 - 0.10 Final 123-9 9999- 9 LOINC 07/30 ABS NUCLEATED RBC Value: 0.00 Units: K/uL Normal Final LP783 9-6 LOINC 07/30 RBC Morphol ogy Complete d Result for: LISSY BALLARD ( 977, F) 123-9 9999- 9 LOINC 07/30 ANISOCYTOSIS - Normal Final 123-9 9999- 9 LOINC 07/30 POIK - Normal Final 123-9 9999- 9 LOINC 07/30 MACROCYTOSIS - Normal Final 123-9 9999- 9 LOINC 07/30 MICROCYTOSIS - Normal Final 123-9 9999- 9 LOINC 07/30 HYPOCHROMIA - Normal Final 123-9 9999- 9 LOINC 07/30 POLY - Normal Final 123-9 9999- 9 LOINC 07/30 ACANT - Normal Final 123-9 9999- 9 LOINC 07/30 BSTIP - Normal Final 123-9 9999- 9 LOINC 07/30 ECHI - Normal Final 123-9 9999- 9 LOINC 07/30 ELIPT - Normal Final 123-9 9999- 9 LOINC 07/30 OVAL - Normal Final 123-9 9999- 9 LOINC 07/30 SCHIS - Normal Final 123-9 9999- 9 LOINC 07/30 SPHER - Normal Final 123-9 9999- 9 LOINC 07/30 STOMA - Normal Final 123-9 9999- 9 LOINC 07/30 HELM - Normal Final 123-9 9999- 9 LOINC 07/30 TEAR - Normal Final 123-9 9999- 9 LOINC 07/30 TARG - Normal Final 123-9 9999- 9 LOINC 07/30 HOWJB - Normal Final 123-9 9999- 9 LOINC 07/30 PAPB - Normal Final 123-9 9999- 9 LOINC 07/30 RBC Morphology - Normal Final 123-9 9999- 9 LOINC 08/04 Vancomy faisal, Random Complete d Result for: LISSY BALLARD ( 977, F) 123-9 9999- 9 LOINC 08/04 Vancomycin, Random - Normal Final 123-9 9999- 9 LOINC 08/06 Timed Collect ion Fee / Vancomy faisal, Trough Complete d Result for: LISSY BALLARD ( 977, F) 123-9 9999- 9 LOINC 08/06 autoApproveHos tCode - Normal Final LP783 9-6 LOINC 08/06 Vancomy faisal, Trough Complete d Result for: LISSY BALLARD ( 977, F) 123-9 9999- 9 LOINC 08/06 VANCT Value: 13.8 Units: ug/mL Normal 10.0 - 20.0 Final 123-9 9999- 9 LOINC 08/06 Vancomycin, Trough - Normal Final 2951- 2 LOINC 08/06 Compreh ensive Metabol ic Panel (CMP) Complete d Result for: LISSY BALLARD ( 977, F) 2951- 2 LOINC 08/06 SODIUM Value: 137 Units: mmol/L Normal 133 - 145 Final 718-7 LOINC 08/06 Complet e Blood Count (CBC) w/Auto Differe ntial Complete d Result for: LISSY BALLARD ( 977, F) 718-7 LOINC 08/06 HGB Value: 9.6 Units: g/dL Low 12.1 - 15.7 Final 1751- 7 LOINC 08/06 Compreh ensive Metabol ic Panel (CMP) Complete d Result for: LISSY BALLARD ( 977, F) 2075- 0 LOINC 08/06 CHLORIDE Value: 104 Units: mmol/L Normal 96 - 108 Final 2823- 3 LOINC 08/06 POTASSIUM Value: 4.2 Units: mmol/L Normal 3.3 - 5.1 Final 6768- 6 LOINC 08/06 ALK PHOS Value: 67 Units: U/L Normal 35 - 105 Final 1920- 8 LOINC 08/06 AST (SGOT) Value: 16 Units: U/L Normal 0 - 31 Final 1751- 7 LOINC 08/06 ALBUMIN Value: 4.4 Units: g/dL Normal 3.2 - 5.2 Final 4544- 3 LOINC 08/06 Complet e Blood Count (CBC) w/Auto Differe ntial Complete d Result for: LISSY BALLARD ( 977, F) 787-2 LOINC 08/06 MCV Value: 78.1 Units: fL Normal 78.0 - 102.0 Final 777-3 LOINC 08/06 PLATELET COUNT Value: 280.0 Units: K/uL Normal 150.0 - 400.0 Final 785-6 LOINC 08/06 MCH Value: 24.9 Units: pg Low 26.0 - 34.0 Final 789-8 LOINC 08/06 RBC Value: 3.87 Units: M/uL Low 4.00 - 5.10 Final 4544- 3 LOINC 08/06 HCT Value: 30.2 Units: % Low 35.0 - 45.0 Final 3094- 0 LOINC 08/06 Compreh ensive Metabol ic Panel (CMP) Complete d Result for: LISSY BALLARD ( 977, F) 3094- 0 LOINC 08/06 BUN Value: 23 Units: mg/dL High 6 - 20 Final 786-4 LOINC 08/06 Complet e Blood Count (CBC) w/Auto Differe ntial Complete d Result for: LISSY BALLARD ( 977, F) 786-4 LOINC 08/06 MCHC Value: 31.8 Units: g/dL Normal 30.0 - 37.0 Final 123-9 9999- 9 LOINC 08/06 C-React layla Protein (CRP), High Sensiti vity / Compreh ensive Metabol ic Panel (CMP) / Sed Rate / Complet e Blood Count (CBC) w/Auto Differe ntial / RBC Morphol ogy Complete d Result for: LISSY BALLARD ([facility] 977, F) 123-9 9999- 9 LOINC 08/06 CRPC Value: 7.60 Units: mg/L High 0.00 - 1.00 Final 86256 -6 LOINC 08/06 Compreh ensive Metabol ic Panel (CMP) Complete d Result for: LISSY BALLARD ([facility] 977, F) 2345- 7 LOINC 08/06 GLUCOSE Value: 97 Units: mg/dL Normal 70 - 120 Final 2160- 0 LOINC 08/06 CREATININE Value: 0.76 Units: mg/dL Normal 0.70 - 1.50 Final 70718 -6 LOINC 08/06 CALCIUM Value: 9.1 Units: mg/dL Normal 8.4 - 10.2 Final 123-9 9999- 9 LOINC 08/06 C-React layla Protein (CRP), High Sensiti vity / Compreh ensive Metabol ic Panel (CMP) / Sed Rate / Complet e Blood Count (CBC) w/Auto Differe ntial / RBC Morphol ogy Complete d Result for: LISSY BALLARD ([facility] 97, F) 123-9 9999- 9 LOINC 08/06 ESR Value: 65 Units: mm/h High 0 - 20 Final LP783 9-6 LOINC 08/06 Compreh ensive Metabol ic Panel (CMP) Complete d Result for: LISSY BALLARD ([facility] 977, F) 123-9 9999- 9 LOINC 08/06 TOTAL PROTEIN Value: 8.4 Units: g/dL High 6.4 - 8.3 Final 123-9 9999- 9 LOINC 08/06 CO2 Value: 25 Units: mmol/L Normal 22 - 33 Final 123-9 9999- 9 LOINC 08/06 ALT (SGPT) Value: 11 Units: U/L Normal 0 - 31 Final 123-9 9999- 9 LOINC 08/06 BILIRUBIN TOTAL Value: 0.3 Units: mg/dL Normal 0.0 - 1.2 Final [facility]-9 9998- 9 [facility] 08/06 eGFR Value: 97 Units: mL/min/ {1.73_m 2} Normal >=90 Final Interpr etation of eGFR: ------- ------- ------- ------- ------- ------- ------- ------- ------- ------- 90 or more Normal Stage 1 (if protein uria) 60-89 Mildly Reduced Stage 2 30-59 Moderat sherice Reduced Stage 3 15-29 Severel y Reduced Stage 4 <15 Kidney Failure Stage 5 Referen ce: http:// nkdep.n .gov/ profess ionals/ index.h LP783 9-6 [facility] 08/06 Complet e Blood Count (CBC) w/Auto Differe ntial Complete d Result for: BALLARD BEENACHUCKY Maldonado ( 977, F) 1239 9999- 9 [facility] 08/06 WBC Value: 5.8 Units: K/uL Normal 4.8 - 10.8 Final [facility] 9 [facility] 08/06 RDW-SD Value: 74.4 Units: fL High 37.0 - 51.[address] [place] [address] [facility] 08/06 RDW-CV Value: 30.4 Units: % High 11.0 - 16.[address] [place] [address] 9 [facility] 08/06 MPV Value: 8.7 Units: fL Normal 7.2 - 10.[address] [place] [address] 9 [facility] 08/06 NEUTS Value: 74.0 Units: % High 40.0 - 70.[address] [place] [address] 9 [facility] 08/06 LYMPHS Value: 15.70 Units: % Low 20.00 - 40.[address] [place] [address] 9 [facility] 08/06 MONOS Value: 7.90 Units: % Normal 3.00 - 12.00 Final 123-9 9999- 9 LOINC 08/06 EOS Value: 1.70 Units: % Normal 0.00 - 5.00 Final 123-9 9999- 9 LOINC 08/06 BASO Value: 0.70 Units: % Normal 0.00 - 2.00 Final 123-9 9999- 9 LOINC 08/06 ABS NEUTROPHILS Value: 4.30 Units: K/uL Normal 1.80 - 7.70 Final 123-9 9999- 9 LOINC 08/06 ABS LYMPHOCYTES Value: 0.90 Units: K/uL Low 1.00 - 4.30 Final 123-9 9999- 9 LOINC 08/06 ABS MONOCYTES Value: 0.50 Units: K/uL Normal 0.20 - 1.00 Final 123-9 9999- 9 LOINC 08/06 ABS EOSINOPHILS Value: 0.10 Units: K/uL Normal 0.02 - 0.50 Final 123-9 9999- 9 LOINC 08/06 ABS BASOPHILS Value: 0.00 Units: K/uL Normal 0.00 - 0.10 Final 123-9 9999- 9 LOINC 08/06 ABS NUCLEATED RBC Value: 0.00 Units: K/uL Normal Final LP783 9-6 LOINC 08/06 RBC Morphol ogy Complete d Result for: LISSY BALLARD ( 977, F) 123-9 9999- 9 LOINC 08/06 ANISOCYTOSIS - Normal Final 123-9 9999- 9 LOINC 08/06 POIK - Normal Final 123-9 9999- 9 LOINC 08/06 MACROCYTOSIS - Normal Final 123-9 9999- 9 LOINC 08/06 MICROCYTOSIS - Normal Final 123-9 9999- 9 LOINC 08/06 HYPOCHROMIA - Normal Final 123-9 9999- 9 LOINC 08/06 POLY - Normal Final 123-9 9999- 9 LOINC 08/06 ACANT - Normal Final 123-9 9999- 9 LOINC 08/06 BSTIP - Normal Final 123-9 9999- 9 LOINC 08/06 ECHI - Normal Final 123-9 9999- 9 LOINC 08/06 ELIPT - Normal Final 123-9 9999- 9 LOINC 08/06 OVAL - Normal Final 123-9 9999- 9 LOINC 08/06 SCHIS - Normal Final 123-9 9999- 9 LOINC 08/06 SPHER - Normal Final 123-9 9999- 9 LOINC 08/06 STOMA - Normal Final 123-9 9999- 9 LOINC 08/06 HELM - Normal Final 123-9 9999- 9 LOINC 08/06 TEAR - Normal Final 123-9 9999- 9 LOINC 08/06 TARG - Normal Final 123-9 9999- 9 LOINC 08/06 HOWJB - Normal Final 123-9 9999- 9 LOINC 08/06 PAPB - Normal Final 123-9 9999- 9 LOINC 08/06 RBC Morphology - Normal Final 123-9 9999- 9 LOINC 08/08 Timed Collect ion Fee / Vancomy faisal, Trough Complete d Result for: LISSY BALLARD ( 977, F) 123-9 9999- 9 LOINC 08/08 autoApproveHos tCode - Normal Final LP783 9-6 LOINC 08/08 Vancomy faisal, Trough Complete d Result for: LISSY BALLARD ( 977, F) 123-9 9999- 9 LOINC 08/08 VANCT Value: 16.2 Units: ug/mL Normal 10.0 - 20.0 Final 123-9 9999- 9 LOINC 08/08 Vancomycin, Trough - Normal Final LP783 9-6 LOINC 08/11 Vancomy faisal, Random Complete d Result for: LISSY BALLARD ( 977, F) 123-9 9999- 9 LOINC 08/11 VANCR Value: 15.6 Units: ug/mL Normal 5.0 - 40.0 Final 123-9 9999- 9 LOINC 08/11 Vancomycin, Random - Normal Final LP783 9-6 LOINC 08/13 Vancomy faisal, Trough Complete d Result for: LISSY BALLARD ( 977, F) 123-9 9999- 9 LOINC 08/13 VANCT Value: 12.8 Units: ug/mL Normal 10.0 - 20.0 Final 123-9 9999- 9 LOINC 08/13 Vancomycin, Trough - Normal Final 123-9 9999- 9 LOINC 08/13 Timed Collect ion Fee / Vancomy faisal, Trough Complete d Result for: LISSY BALLARD ( 977, F) 123-9 9999- 9 LOINC 08/13 autoApproveHos tCode - Normal Final 2074- 0 LOINC 08/13 Compreh ensive Metabol ic Panel (CMP) Complete d Result for: LISSY BALLARD ( 977, F) 3094- 0 LOINC 08/13 BUN Value: 16 Units: mg/dL Normal 6 - 20 Final 2075- 0 LOINC 08/13 CHLORIDE Value: 105 Units: mmol/L Normal 96 - 108 Final 718-7 LOINC 08/13 Complet e Blood Count (CBC) w/Auto Differe ntial Complete d Result for: LISSY BALLARD ( 977, F) 718-7 LOINC 08/13 HGB Value: 10.3 Units: g/dL Low 12.1 - 15.7 Final 2951- 2 LOINC 08/13 Compreh ensive Metabol ic Panel (CMP) Complete d Result for: LISSY BALLARD ( 977, F) 2823- 3 LOINC 08/13 POTASSIUM Value: 4.4 Units: mmol/L Normal 3.3 - 5.1 Final 2951- 2 LOINC 08/13 SODIUM Value: 139 Units: mmol/L Normal 133 - 145 Final 777-3 LOINC 08/13 Complet e Blood Count (CBC) w/Auto Differe ntial Complete d Result for: LISSY BALLARD ([facility] 977, F) 789-8 LOINC 08/13 RBC Value: 4.02 Units: M/uL Normal 4.00 - 5.10 Final 786-4 LOINC 08/13 MCHC Value: 32.7 Units: g/dL Normal 30.0 - 37.0 Final 785-6 LOINC 08/13 MCH Value: 25.7 Units: pg Low 26.0 - 34.0 Final 4544- 3 LOINC 08/13 HCT Value: 31.5 Units: % Low 35.0 - 45.0 Final 787-2 LOINC 08/13 MCV Value: 78.3 Units: fL Normal 78.0 - 102.0 Final 777-3 LOINC 08/13 PLATELET COUNT Value: 256.0 Units: K/uL Normal 150.0 - 400.0 Final 6768- 6 LOINC 08/13 Compreh ensive Metabol ic Panel (CMP) Complete d Result for: LISSY BALLARD ([facility] 977, F) 1920- 8 LOINC 08/13 AST (SGOT) Value: 16 Units: U/L Normal 0 - 31 Final 1751- 7 LOINC 08/13 ALBUMIN Value: 4.3 Units: g/dL Normal 3.2 - 5.2 Final 6768- 6 LOINC 08/13 ALK PHOS Value: 70 Units: U/L Normal 35 - 105 Final LP783 9-6 LOINC 08/13 Complet e Blood Count (CBC) w/Auto Differe ntial Complete d Result for: LISSY BALLARD ([facility] 977, F) 123-9 9999- 9 LOINC 08/13 RDW-SD Value: 68.3 Units: fL High 37.0 - 51.0 Final 123-9 9999- 9 LOINC 08/13 RDW-CV Value: 27.2 Units: % High 11.0 - 16.0 Final 123-9 9999- 9 LOINC 08/13 C-React layla Protein (CRP), High Sensiti vity / Compreh ensive Metabol ic Panel (CMP) / Sed Rate / Complet e Blood Count (CBC) w/Auto Differe ntial / RBC Morphol ogy Complete d Result for: LISSY BALLARD ( 977, F) 123-9 9999- 9 LOINC 08/13 CRPC Value: 10.94 Units: mg/L High 0.00 - 1.00 Final LP783 9-6 LOINC 08/13 Compreh ensive Metabol ic Panel (CMP) Complete d Result for: LISSY BALLARD ( 977, F) 123-9 9999- 9 LOINC 08/13 BILIRUBIN TOTAL Value: 0.3 Units: mg/dL Normal 0.0 - 1.2 Final 123-9 9999- 9 LOINC 08/13 eGFR Value: 103 Units: mL/min/ {1.73_m 2} Normal >=90 Final Interpr etation of eGFR: ------- ------- ------- ------- ------- ------- ------- ------- ------- ------- 90 or more Normal Stage 1 (if protein uria) 60-89 Mildly Reduced Stage 2 30-59 Moderat sherice Reduced Stage 3 15-29 Severel y Reduced Stage 4 <15 Kidney Failure Stage 5 Referen ce: http:// nkdep.n ih.gov/ profess ionals/ index.h tm 123-9 9999- 9 LOINC 08/13 Complet e Blood Count (CBC) w/Auto Differe ntial Complete d Result for: LISSY BALLARD ( 977, F) 123-9 9999- 9 LOINC 08/13 WBC Value: 4.4 Units: K/uL Low 4.8 - 10.8 Final LP783 9-6 LOINC 08/13 Compreh ensive Metabol ic Panel (CMP) Complete d Result for: LISSY BALLARD ( 977, F) 123-9 9999- 9 LOINC 08/13 CO2 Value: 25 Units: mmol/L Normal 22 - 33 Final [facility]9 999 9 [facility] 08/13 ALT (SGPT) Value: 12 Units: U/L Normal 0 - 31 Final LP783 9-6 [facility] 08/13 Complet e Blood Count (CBC) w/Auto Differe ntial Complete d Result for: LISSY BALLARD ( 977, F) [address] [place] [address] 08/13 MPV Value: 9.1 Units: fL Normal 7.2 - 10.[address] [place] [address] 08/13 NEUTS Value: 68.4 Units: % Normal 40.0 - 70.[address] [place] [address] 08/13 LYMPHS Value: 18.40 Units: % Low 20.00 - 40.[address] [place] [address] 08/13 MONOS Value: 9.20 Units: % Normal 3.00 - 12.[address] [place] [address] 08/13 EOS Value: 3.10 Units: % Normal 0.00 - 5.[address] [place] [address] 08/13 BASO Value: 0.90 Units: % Normal 0.00 - 2.[address] [place] [address] 08/13 ABS NEUTROPHILS Value: 3.00 Units: K/uL Normal 1.80 - 7.[address] [place] [address] 08/13 ABS LYMPHOCYTES Value: 0.80 Units: K/uL Low 1.00 - 4.[address] [place] [address] 08/13 ABS MONOCYTES Value: 0.40 Units: K/uL Normal 0.20 - 1.[address] [place] [address] 08/13 ABS EOSINOPHILS Value: 0.10 Units: K/uL Normal 0.02 - 0.[address] [place] [address] 08/13 ABS BASOPHILS Value: 0.00 Units: K/uL Normal 0.00 - 0.[address] [place] [address] 08/13 ABS NUCLEATED RBC Value: 0.00 Units: K/uL Normal Final LP783 9-6 LOINC 08/13 RBC Morphol ogy Complete d Result for: LISSY BALLARD ( 977, F) 123-9 9999- 9 LOINC 08/13 ANISOCYTOSIS - Normal Final 123-9 9999- 9 LOINC 08/13 POIK - Normal Final 123-9 9999- 9 LOINC 08/13 MACROCYTOSIS - Normal Final 123-9 9999- 9 LOINC 08/13 MICROCYTOSIS - Normal Final 123-9 9999- 9 LOINC 08/13 HYPOCHROMIA - Normal Final 123-9 9999- 9 LOINC 08/13 POLY - Normal Final 123-9 9999- 9 LOINC 08/13 ACANT - Normal Final 123-9 9999- 9 LOINC 08/13 BSTIP - Normal Final 123-9 9999- 9 LOINC 08/13 ECHI - Normal Final 123-9 9999- 9 LOINC 08/13 ELIPT - Normal Final 123-9 9999- 9 LOINC 08/13 OVAL - Normal Final 123-9 9999- 9 LOINC 08/13 SCHIS - Normal Final 123-9 9999- 9 LOINC 08/13 SPHER - Normal Final 123-9 9999- 9 LOINC 08/13 STOMA - Normal Final 123-9 9999- 9 LOINC 08/13 HELM - Normal Final 123-9 9999- 9 LOINC 08/13 TEAR - Normal Final 123-9 9999- 9 LOINC 08/13 TARG - Normal Final 123-9 9999- 9 LOINC 08/13 HOWJB - Normal Final 123-9 9999- 9 LOINC 08/13 PAPB - Normal Final 123-9 9999- 9 LOINC 08/13 RBC Morphology - Normal Final 91311 -6 LOINC 08/13 Compreh ensive Metabol ic Panel (CMP) Complete d Result for: LISSY BALLARD ( 977, F) 2160- 0 LOINC 08/13 CREATININE Value: 0.72 Units: mg/dL Normal 0.70 - 1.50 Final 2345- 7 LOINC 08/13 GLUCOSE Value: 89 Units: mg/dL Normal 70 - 120 Final 08623 -6 LOINC 08/13 CALCIUM Value: 9.2 Units: mg/dL Normal 8.4 - 10.2 Final 123-9 9999- 9 LOINC 08/13 TOTAL PROTEIN Value: 8.2 Units: g/dL Normal 6.4 - 8.3 Final 123-9 9999- 9 LOINC 08/13 C-React layla Protein (CRP), High Sensiti vity / Compreh ensive Metabol ic Panel (CMP) / Sed Rate / Complet e Blood Count (CBC) w/Auto Differe ntial / RBC Morphol ogy Complete d Result for: LISSY BALLARD ([facility] 977, F) 123-9 9999- 9 [facility] 08/13 ESR Value: 65 Units: mm/h High 0 - 20 Final LP783 9-6 LOINC 08/15 Vancomy faisal, Trough Complete d Result for: LISSY BALLARD ([facility] 977, F) 123-9 9999- 9 [facility] 08/15 VANCT Value: 14.8 Units: ug/mL Normal 10.0 - 20.0 Final 123-9 9999- 9 [facility] 08/15 Vancomycin, Trough - Normal Final 123-9 9999- 9 INC 08/15 Timed Collect ion Fee / Vancomy faisal, Trough Complete d Result for: LISSY BALLARD ([facility] 977, F) 123-9 9999- 9 LOINC 08/15 autoApproveHos tCode - Normal Final 123-9 9999- 9 LOINC 08/17 Timed Collect ion Fee / Vancomy faisal, Trough Complete d Result for: LISSY BALLARD ([facility] 977, F) 123-9 9999- 9 LOINC 08/17 autoApproveHos tCode - Normal Final LP783 9-6 LOINC 08/17 Vancomy faisal, Trough Complete d Result for: LISSY BALLARD ( 977, F) 123-9 9999- 9 LOINC 08/17 VANCT Value: 10.4 Units: ug/mL Normal 10.0 - 20.0 Final 123-9 9999- 9 LOINC 08/17 Vancomycin, Trough - Normal Final Social History Social History Observation Description Start Date End Date Code Code System Current Smoking Status Tobacco smoking consumption unknown 195421643 SNOMED CT Sex Assigned At Female 1975 15463-0 LOINC Gender Identity Sexual Orientation Vital Signs Code Code System Vitals Name Values and Units Timing Information 47544-5 LOINC Pain Level Value=0.0 08/19/2025 63057-9 LOINC Weight Qwsic=660.3 Units=Lbs 05/2025 8462-4 LOINC Blood Pressure-Diastolic Value=76 Un its=mmHg 08/13/2025 8480-6 LOINC Blood Pressure-Systolic Scbuw=251 Un its=mmHg 08/13/2025 8867-4 LOINC Heart rate Value=81.0 Units=/min 05/2025 9279-1 LOINC Respiratory Rate Value=18.0 Units=/m in 08/07/2025 8310-5 LOINC Body Temperature Value=97.9 Units= F 08/07/2025 62123-7 INC O2 % BldC Oximetry Value=99.0 Units= % 08/02/2025 8302-2 LOINC Height Value=60.0 Units=Inches 07/23/2025
[2025-08-23 17:02] VITALS: BP 140/98; PULSE 88; RESP 18; O2SAT 98
[2025-08-23 17:14] LABS: Cannabinoid Screen Urine Not Detected (Not Detect)
[2025-08-23] MEDS: Sulfamethox/Trimeth 800/160 TABLET 1 TAB PO (18:41)
--- NOTE | 2025-08-23 18:48 | HE.PHANOTE ---
Methadone verified 60 mg [facility] 08/22/25
--- NOTE | 2025-08-23 20:02 | MHC.EDTECH ---
[facility]
[2025-08-23 20:07] VITALS: BP 153/95; PULSE 90; RESP 16; TEMP 36.6; O2SAT 98
--- NOTE | 2025-08-23 20:36 | ECG_ITS ---
Test Reason : RULE OUT PROLONGED QTC Blood Pressure : */* mmHG Vent. Rate : 83 BPM Atrial Rate : 83 BPM P-R Int : 124 ms QRS Dur : 82 ms QT Int : 386 ms P-R-T Axes : 69 -7 43 degrees QTcB Int : 453 ms Normal sinus rhythm Normal ECG When compared with ECG of 29-Jan-2023 10:50, Nonspecific T wave abnormality no longer evident in Inferior leads Referred By: Generic ED Physician Electronically Signed By: Mirza Gold
--- NOTE | 2025-08-23 21:23 | PC.NURSE ---
Assumed care at 1999. 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 Med req completed per patient. Reports she takes 40mg of Methadone and goes to [facility]. Reports she was last dosed at [facility] yesterday.
[2025-08-23] MEDS: Ferrous Sulfate 324 MG TABLET.DR PO (21:42)
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
[2025-08-24 08:00] VITALS: BP 114/65; PULSE 75; RESP 18; TEMP 36.6; O2SAT 99
[2025-08-24 08:12] VITALS: BMI 23.4
[2025-08-24] MEDS: Sulfamethox/Trimeth 800/160 TABLET 1 TAB PO ×2 (08:40→21:46)
[2025-08-24] MEDS: Ferrous Sulfate 324 MG TABLET.DR PO ×2 (08:40→21:46)
[2025-08-24] MEDS: methADONE HCl 20 MG/2 ML ORAL.CONC 40 MG PO (08:44)
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
[2025-08-24] MEDS: oxyCODONE HCl ER 10 MG TAB.ER.12H PO (14:10)
[2025-08-24 20:00] VITALS: BP 132/82; PULSE 72; RESP 20; TEMP 37.1; O2SAT 100
[2025-08-24] MEDS: oxyCODONE HCl Immed Release 5 MG TABLET PO (21:46)
[2025-08-25] MEDS: methADONE HCl 20 MG/2 ML ORAL.CONC 40 MG PO (07:58)
[2025-08-25 08:00] VITALS: BP 117/68; PULSE 76; RESP 18; TEMP 36.9; O2SAT 99
[2025-08-25] MEDS: oxyCODONE HCl Immed Release 5 MG TABLET PO ×2 (08:30→21:04)
[2025-08-25] MEDS: Ferrous Sulfate 324 MG TABLET.DR PO ×2 (08:30→21:04)
[2025-08-25] MEDS: Sulfamethox/Trimeth 800/160 TABLET 1 TAB PO ×2 (08:30→21:07)
[2025-08-25 11:05] LABS: Alanine Aminotransferase 15 U/L (0-31); Albumin Level 4.2 g/dL (3.5-5.0); Alkaline Phosphatase 73 U/L (39-117); Anion Gap 13 (12-20); Aspartate Amino Transferase 28 U/L (5-31); Blood Urea Nitrogen 26 mg/dL (9-16); Calcium 9.5 mg/dL (8.4-10.2); Carbon Dioxide 23 mmol/L (22-29); Chloride 110 mmol/L (96-108); Cholesterol 172 mg/dL (<200); Creatinine Clr Calc Pharmacy 43.7; Estimated Glomerular Filt Rate 51; Free T4 (Free Thyroxine) 0.86 ng/dL (0.71-1.85); HDL Cholesterol 46 mg/dL (>40); Magnesium 2.2 mg/dL (1.6-2.6); Potassium 4.6 mmol/L (3.3-5.1); Sodium 141 mmol/L (135-145); Thyroid Stimulating Hormone 0.79 uIU/mL (0.32-4.0); Total Protein 8.1 g/dL (6.5-8.0); Triglycerides 90 mg/dL (<150)
[2025-08-25 11:19] LABS: Folate 8.1 ng/mL (> or = 4.0); Vitamin B12 366 pg/mL (200-900)
--- NOTE | 2025-08-25 11:21 | P.PNPSI_ITS ---
Subjective Subjective Date of Service: 08/25/25 Reason For Visit: SI Interim History: Patient reports sleeping well last night. Focused on discharge; patient is hoping to be discharged tomorrow; she was educated to speak with her primary team regarding discharge planning. Patient requesting increase in Ativan and Oxycodone; request was declined and she was educated regarding reasoning d/t hx of substance abuse. She denies SI/HI/VH/AH. encouraged to attend groups. Continue tx plan. Medication Compliance: Yes Side effects from medications: No Attending Groups: No Mental Status Exam Mental Status Exam Patient Appearance: Well Grooomed Patient Orientation: Person, Place, Time and Situation Level of Consciousness: Awake and Alert Patient Behavior: Appropriate, Cooperative and Good Eye Contact Mood Description: Anxious Affect Description: Calm Ability to Follow Directions: Good Speech Pattern: Clear Memory Description: Intact Hallucinations: None Delusions: Not Present Thought Process: Intact Thought Content: positive for Intact Diagnostics Vital Signs (24Hr): Vital Signs - 24 hr 08/24/25 20:00 08/25/25 08:00 Temperature 98.7 F 98.5 F Pulse Rate 72 76 Respiratory Rate 20 18 Blood Pressure 132/82 117/68 Pulse Oximetry 100 99 Oxygen Delivery Method Room Air Room Air BMI result Body Mass Index 23.4 Labs 08/23/25 12:23 08/25/25 10:12 Labs: Laboratory Results - last 48 hr 08/23/25 08/23/25 08/23/25 12:22 12:23 12:27 WBC 3.5 L RBC 4.11 L Hgb 10.5 L Hct 34.1 L MCV 83.0 MCH 25.5 L MCHC 30.8 L RDW 22.2 H Plt Count 234 MPV 9.9 Immature Gran % (Auto) 0.3 Neut % (Auto) 62.5 Lymph % (Auto) 26.7 [place] % (Auto) 7.4 Eos % (Auto) 2.0 Baso % (Auto) 1.1 Lymph # (Auto) 0.9 L [place] # (Auto) 0.3 Eos # (Auto) 0.1 Baso # (Auto) 0.0 Abs Immat Gran (auto) 0.01 Absolute Neuts (auto) 2.2 Absolute Nucleated RBC 0.000 Nucleated RBC % (auto) 0.0 ESR 53 H Sodium 142 Potassium 3.8 Chloride 110 H Carbon Dioxide 24 Anion Gap 12 BUN 24 H Creatinine 0.66 Estim Creat Clear Calc 80.9 Estimated GFR > 60 Random Glucose 108 Estimat Average Glucose Hemoglobin A1c % Calcium 9.6 D Magnesium Total Bilirubin AST ALT Alkaline Phosphatase C-Reactive Protein 0.30 Total Protein Albumin Triglycerides Cholesterol LDL Cholesterol, Calc HDL Cholesterol Vitamin B12 Folate TSH Free T4 Hold Red Top See Note Urine Opiates Screen Ur Buprenorphine Scrn Ur Oxycodone Screen Urine Methadone Screen Urine Fentanyl Screen Ur Barbiturates Screen Ur Phencyclidine Scrn Ur Amphetamines Screen U Benzodiazepines Scrn Urine Cocaine Screen U Marijuana (THC) Screen 08/23/25 08/25/25 16:54 10:12 WBC RBC Hgb Hct MCV MCH MCHC RDW Plt Count MPV Immature Gran % (Auto) Neut % (Auto) Lymph % (Auto) [place] % (Auto) Eos % (Auto) Baso % (Auto) Lymph # (Auto) [place] # (Auto) Eos # (Auto) Baso # (Auto) Abs Immat Gran (auto) Absolute Neuts (auto) Absolute Nucleated RBC Nucleated RBC % (auto) ESR Sodium 141 Potassium 4.6 D Chloride 110 H Carbon Dioxide 23 Anion Gap 13 BUN 26 H Creatinine 1.13 Estim Creat Clear Calc 43.7 Estimated GFR 51 Random Glucose 117 H Estimat Average Glucose 88 Hemoglobin A1c % 4.7 Calcium 9.5 Magnesium 2.2 Total Bilirubin 0.1 AST 28 ALT 15 Alkaline Phosphatase 73 C-Reactive Protein Total Protein 8.1 H Albumin 4.2 Triglycerides 90 Cholesterol 172 LDL Cholesterol, Calc 108 H HDL Cholesterol 46 Vitamin B12 366 Folate 8.1 TSH 0.79 Free T4 0.86 Hold Red Top Urine Opiates Screen POSITIVE H Ur Buprenorphine Scrn Not Detected Ur Oxycodone Screen Positive H Urine Methadone Screen Positive H Urine Fentanyl Screen POSITIVE H Ur Barbiturates Screen Not Detected Ur Phencyclidine Scrn Not Detected Ur Amphetamines Screen Not Detected U Benzodiazepines Scrn Not Detected Urine Cocaine Screen POSITIVE H U Marijuana (THC) Screen Not Detected Imaging Radiology Impressions: ITS Impressions Finger X-Ray 08/23/25 13:50 IMPRESSION: Unremarkable examination of the left thumb. Electronically signed by: Alfredo Ramos MD 08/23/2025 01:55 PM [facility] Medications Medications Current Medications Acetaminophen (Acetaminophen 325 Mg Tablet) 650 mg PO Q6H PRN PRN Reason: Headache/Pain, Scale 1-10 Last Admin: 08/23/25 21:42 Dose: 650 mg Al Hydroxide/Mg Hydroxide (Magnesium Hydrox/Alum Hydrox 30 Ml Oral.Susp) 30 ml PO Q6H PRN PRN Reason: Heartburn/Nausea Ferrous Sulfate (Ferrous Sulfate 324 Mg Tablet.Dr) 324 mg PO BID [facility] Last Admin: 08/25/25 08:30 Dose: 324 mg Gabapentin (Gabapentin 100 Mg Capsule) 100 mg PO TID [facility] Last Admin: 08/25/25 08:30 Dose: 100 mg Ibuprofen (Ibuprofen 400 Mg Tablet) 400 mg PO Q6H PRN PRN Reason: Pain, Moderate(Pain Scale 4-6) Last Admin: 08/25/25 05:54 Dose: 400 mg Lorazepam (Lorazepam 0.5 Mg Tablet) 0.5 mg PO BID [facility] Last Admin: 08/25/25 08:31 Dose: 0.5 mg Magnesium Hydroxide (Milk Of Magnesia 30 Ml Oral.Susp) 30 ml PO DAILY PRN PRN Reason: Constipation Methadone HCl (Methadone Hcl 20 Mg/2 Ml Oral.Conc) 40 mg PO DAILY [facility] Last Admin: 08/25/25 07:58 Dose: 40 mg Nicotine (Nicotine 21 Mg Patch.Td24) 21 mg TRANSDERMA DAILY PRN PRN Reason: nicotine craving Nicotine Polacrilex (Nicotine Polacrilex 2 Mg Gum) 2 mg BUCCAL Q2H PRN PRN Reason: Nicotine Cravings Olanzapine (Olanzapine 5 Mg Tablet) 5 mg PO Q4H PRN PRN Reason: agitation Oxycodone HCl (Oxycodone Hcl Immed Release 5 Mg Tablet) 5 mg PO BID [facility] Last Admin: 08/25/25 08:30 Dose: 5 mg Sertraline HCl (Sertraline Hcl 25 Mg Tablet) 25 mg PO DAILY [facility] Last Admin: 08/25/25 08:32 Dose: 25 mg Trimethoprim/Sulfamethoxazole (Sulfamethox/Trimeth 800/160 Tablet) 1 tab PO BID [facility] Stop: 09/22/25 21:01 Last Admin: 08/25/25 08:30 Dose: 1 tab Zolpidem Tartrate (Zolpidem Tartrate 5 Mg Tablet) 5 mg PO BEDTIME PRN PRN Reason: Insomnia Last Admin: 08/24/25 21:46 Dose: 5 mg Allergies Allergies Allergy/AdvReac Type Severity Reaction Status Date / Time diphenhydramine (From Allergy Severe RASH Verified 08/23/25 11:57 BENADRYL) trazodone (TRAZODONE) AdvReac Severe DYSTONIC Verified 08/23/25 11:57 risperidone (Risperdal) AdvReac Unknown Dystonia Verified 08/23/25 11:57 Assessment & Plan Assessment & Plan (1) MDD (major depressive disorder), recurrent episode, severe: Status: Acute Code(s): F33.2 - Major depressive disorder, recurrent severe without psychotic features (2) PTSD (post-traumatic stress disorder): Status: Acute Code(s): F43.10 - Post-traumatic stress disorder, unspecified (3) Cocaine use disorder: Status: Acute Code(s): F14.10 - Cocaine abuse, uncomplicated (4) Opioid use disorder: Status: Acute Code(s): F11.90 - Opioid use, unspecified, uncomplicated Plan Patient is a 50-year-old female with history of MDD, PTSD, cocaine use disorder and opiate use disorder who presented to ER or medical concerns and later expressed depression and possible SI upon discharge. Plan: 15 minute safety checks Obtain collateral Start: Sertraline 25mg PO daily Ativan 0.5mg PO BID Oxycodone 5mg PO BID Gabapentin 100mg PO TID Ambien 5mg PO bedtime PRN Encourage groups ?Referral to substance abuse program referral to outpatient psychiatric providers Discharge planning 08/25: Patient reports sleeping well last night. Focused on discharge; patient is hoping to be discharged tomorrow; she was educated to speak with her primary team regarding discharge planning. Patient requesting increase in Ativan and Oxycodone; request was declined and she was educated regarding reasoning d/t hx of substance abuse. She denies SI/HI/VH/AH. encouraged to attend groups. Continue tx plan. Patient educated on: diagnosis, medication risk/benefits and therapeutic strategies Reason for continued inpatient stay Substantial Risk for: med/psych decompensation Time Spent With Patient Time: Total time managing care of this patient today _20___ minutes.
--- NOTE | 2025-08-25 15:20 | PC.NURSE ---
Patient with bleeding from both wounds bilateral wrists after she removed the dry dressings. Band aides applied under abdominal pads over open areas. Wound consult pending. Patient also complained of moderate low back pain and stated that Methadone and Oxycodone doses are too low. She did tell Adia Quijano NP who told her that she would have to ask for an increase from her provider tomorrow. Motrin 400mg PO given at 1511. Patient withdrawn to her room, sleeping most of the day.
--- NOTE | 2025-08-25 16:24 | PC.NURSE ---
Patient complaining that her low back pain control mis ineffective after getting her prn Motrin today. She said that this is causing her higher anxiety and requested something else for anxiety. Adia Quijano NP updated, use Zyprexa.
--- NOTE | 2025-08-25 16:51 | PC.NURSE ---
Adia Quijano NP updated that the patient would not take Zyprexa because it made her tongue swell the last time she took it and was requesting a one time dose of Ativan. Adia Quijano NP replied that she already told her that she would not give her anymore Ativan. Patient updated.
[2025-08-25 17:55] VITALS: BP 130/79
[2025-08-25 20:00] VITALS: BP 126/86; PULSE 83; RESP 18; TEMP 36.9; O2SAT 98
[2025-08-26] MEDS: oxyCODONE HCl Immed Release 5 MG TABLET PO ×3 (06:26→20:36)
[2025-08-26] MEDS: methADONE HCl 20 MG/2 ML ORAL.CONC 40 MG PO (07:51)
[2025-08-26 08:00] VITALS: BP 93/58; PULSE 78; TEMP 36.6; O2SAT 100
[2025-08-26] MEDS: Ferrous Sulfate 324 MG TABLET.DR PO ×2 (08:25→20:31)
[2025-08-26] MEDS: Sulfamethox/Trimeth 800/160 TABLET 1 TAB PO ×2 (08:25→20:36)
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
--- NOTE | 2025-08-26 14:01 | HO.WOUND ---
Wound Consult: Initial 50 yr old female admitted to [facility] on 08/23/25- See progress notes and H&P for detailed history. Wound consult placed for bilateral forearms. Patient agreeable to assessment and photo documentation. Patient seen on previous admissions, reports she went to rehab and wounds were being cared for by staff there. left forearm Right forearm Left arm Etiology: wounds related to IVDU Wound Bed: dry scabbing and dry red bases Drainage / Odor: scant serosanguineous no odor Edges: ? dry defined Marie wound: ? No Induration, Fluctuance or Warmth noted Pain: none Goals of Treatment: ? moist wound care with xeroform/foam Recommendations: Bilateral forearms: cleanse with saline, pat dry, apply skin prep marie wound, apply xeroform to wound base, cover with foam, change daily and PRN Re-consult wound care Nurse for wound deterioration or wound changes.
--- NOTE | 2025-08-26 18:26 | P.PNPSI_ITS ---
Subjective Subjective Date of Service: 08/26/25 Reason For Visit: SI Subjective Notes: 3 Day Healthcare Proxy: No Guardianship: No Medical Problems Affecting Mental Status: No Interim History: Medical record and nursing notes reviewed; case discussed during rounds with team/nursing staff, and met with patient for supportive therapy/psychoeducation, as well as medication management. Patient medication compliant, denies side effects from medications. Do not want to take any anti psychotic medication for/severe anxiety or depression as it causing more side effects. Hyper focused on benzo, reminded many times during assessment that we will not change any benzo, oxycodone. Later on still requests to get extra benzo. Reported that she has feel more anxious being in here but she does not needed when she gets home. Discussed with patient regarding Motrin, baclofen, and increase Zoloft up to 50 mg for anxiety and depression. Patient is receptive to the plan. Do not want to retracted 3 day notice. She said it was mistaken when the care team person tell her to be admitted here, she thoughts is a dual diagnosis-not psychiatric. Therefore she does not feel this is the good fit for her care. Reported that she never reports having suicidal thoughts, but remember telling the person on care from care team that she may use if she lives on Tuesday. Reported that she still craving for substances, agreed to have nephrology social worker to send referral to [facility], but patient preferred to working on her own after discharge the beds is not available today or tomorrow. Patient hope to be seen by addiction team to increase her methadone. Denies SI/SIB/HI/AVH. Visible at times, shower, took medications. No behavior issues on the unit. No safety concerns. She is imminent risk for herself but have potential to relapsed and she is not plan to be clean. However, she wants to work on her own to refer self to [facility] after discharge, she said that I know they are having bed open soon because the checks coming so people leave and I will have bed . She hopes to get into [facility] for aftercare. Review with patient regarding antibiotic which she is aware that she needs completed the course of treatment. Discussed with nephrology social worker, nephrology social worker and this provider coming to conclusion that patient may be discharged tomorrow, still waiting or pending to hear back from [facility] which nephrology social worker sent out this morning. If no beds available, patient will be discharged tomorrow, and will work on her own at own risk if relapse. We will also have no visitor order due to contraband history brought to to the unit on admission. Medication Compliance: Yes Side effects from medications: No Attending Groups: Intermittent Review of Systems Acute medical concerns: No Medical Review of Systems: unchanged Review of Systems Review of Systems Denies any shortness of breath, chest pain, headaches, dysuria, abdominal pain or discomfort, nausea, vomiting or diarrhea. Denies fever or chills. Report back pain 03/14. Mental Status Exam Mental Status Exam Patient Appearance: Well Grooomed Patient Orientation: Person, Place, Time and Situation Level of Consciousness: Awake and Alert Patient Behavior: Appropriate, Cooperative and Good Eye Contact Mood Description: Anxious Affect Description: Calm Ability to Follow Directions: Good Speech Pattern: Clear Memory Description: Intact Hallucinations: None Delusions: Not Present Thought Process: Intact Thought Content: positive for Intact Judgement: Fair Diagnostics Vital Signs (24Hr): Vital Signs - 24 hr 08/25/25 20:00 08/26/25 08:00 Temperature 98.5 F 97.9 F Pulse Rate 83 78 Respiratory Rate 18 Blood Pressure 126/86 93/58 L Pulse Oximetry 98 100 Oxygen Delivery Method Room Air Room Air BMI result Body Mass Index 23.4 Labs 08/23/25 12:23 08/25/25 10:12 Labs: Laboratory Results - last 48 hr 08/25/25 10:12 Sodium 141 Potassium 4.6 D Chloride 110 H Carbon Dioxide 23 Anion Gap 13 BUN 26 H Creatinine 1.13 Estim Creat Clear Calc 43.7 Estimated GFR 51 Random Glucose 117 H Estimat Average Glucose 88 Hemoglobin A1c % 4.7 Calcium 9.5 Magnesium 2.2 Total Bilirubin 0.1 AST 28 ALT 15 Alkaline Phosphatase 73 Total Protein 8.1 H Albumin 4.2 Triglycerides 90 Cholesterol 172 LDL Cholesterol, Calc 108 H HDL Cholesterol 46 Vitamin B12 366 Folate 8.1 TSH 0.79 Free T4 0.86 Imaging Radiology Impressions: ITS Impressions Finger X-Ray 08/23/25 13:50 IMPRESSION: Unremarkable examination of the left thumb. Electronically signed by: Alfredo Ramos MD 08/23/2025 01:55 PM [facility] Medications Medications Current Medications Acetaminophen (Acetaminophen 325 Mg Tablet) 650 mg PO Q6H PRN PRN Reason: Headache/Pain, Scale 1-10 Last Admin: 08/26/25 06:26 Dose: 650 mg Al Hydroxide/Mg Hydroxide (Magnesium Hydrox/Alum Hydrox 30 Ml Oral.Susp) 30 ml PO Q6H PRN PRN Reason: Heartburn/Nausea Baclofen (Baclofen 10 Mg Tablet) 10 mg PO TID PRN PRN Reason: W/D Last Admin: 08/26/25 11:40 Dose: 10 mg Clonidine HCl (Clonidine Hcl 0.1 Mg Tablet) 0.1 mg PO TID PRN; Protocol PRN Reason: anxiety Last Admin: 08/26/25 04:41 Dose: 0.1 mg Ferrous Sulfate (Ferrous Sulfate 324 Mg Tablet.Dr) 324 mg PO BID [facility] Last Admin: 08/26/25 08:25 Dose: 324 mg Gabapentin (Gabapentin 100 Mg Capsule) 100 mg PO TID [facility] Last Admin: 08/26/25 14:36 Dose: 100 mg Ibuprofen (Ibuprofen 800 Mg Tablet) 800 mg PO Q8H PRN PRN Reason: Pain, Moderate(Pain Scale 4-6) Last Admin: 08/26/25 15:14 Dose: 800 mg Lorazepam (Lorazepam 0.5 Mg Tablet) 0.5 mg PO BID [facility] Last Admin: 08/26/25 08:25 Dose: 0.5 mg Magnesium Hydroxide (Milk Of Magnesia 30 Ml Oral.Susp) 30 ml PO DAILY PRN PRN Reason: Constipation Methadone HCl (Methadone Hcl 20 Mg/2 Ml Oral.Conc) 40 mg PO DAILY [facility] Last Admin: 08/26/25 07:51 Dose: 40 mg Nicotine (Nicotine 21 Mg Patch.Td24) 21 mg TRANSDERMA DAILY PRN PRN Reason: nicotine craving Nicotine Polacrilex (Nicotine Polacrilex 2 Mg Gum) 2 mg BUCCAL Q2H PRN PRN Reason: Nicotine Cravings Olanzapine (Olanzapine 5 Mg Tablet) 5 mg PO Q4H PRN PRN Reason: agitation Oxycodone HCl (Oxycodone Hcl Immed Release 5 Mg Tablet) 5 mg PO BID [facility] Last Admin: 08/26/25 08:25 Dose: 5 mg Sertraline HCl (Sertraline Hcl 50 Mg Tablet) 50 mg PO DAILY [facility] Trimethoprim/Sulfamethoxazole (Sulfamethox/Trimeth 800/160 Tablet) 1 tab PO BID [facility] Stop: 09/22/25 21:01 Last Admin: 08/26/25 08:25 Dose: 1 tab Zolpidem Tartrate (Zolpidem Tartrate 5 Mg Tablet) 5 mg PO BEDTIME PRN PRN Reason: Insomnia Last Admin: 08/25/25 21:03 Dose: 5 mg Allergies Allergies Allergy/AdvReac Type Severity Reaction Status Date / Time diphenhydramine (From Allergy Severe RASH Verified 08/23/25 11:57 BENADRYL) trazodone (TRAZODONE) AdvReac Severe DYSTONIC Verified 08/23/25 11:57 risperidone (Risperdal) AdvReac Unknown Dystonia Verified 08/23/25 11:57 Assessment & Plan Assessment & Plan (1) Septic arthritis of lumbar spine: Status: Acute Code(s): M46.56 - Other infective spondylopathies, lumbar region (2) MDD (major depressive disorder), recurrent episode, severe: Status: Acute Code(s): F33.2 - Major depressive disorder, recurrent severe without psychotic features (3) Cocaine use disorder: Status: Acute Code(s): F14.10 - Cocaine abuse, uncomplicated (4) Opioid use disorder: Status: Acute Code(s): F11.90 - Opioid use, unspecified, uncomplicated (5) PTSD (post-traumatic stress disorder): Status: Acute Code(s): F43.10 - Post-traumatic stress disorder, unspecified Plan Patient is a 50-year-old female with history of MDD, PTSD, cocaine use disorder and opiate use disorder who presented to ER or medical concerns and later expressed depression and possible SI upon discharge. Plan: 15 minute safety checks Obtain collateral Start: Sertraline 25mg PO daily Ativan 0.5mg PO BID Oxycodone 5mg PO BID Gabapentin 100mg PO TID Ambien 5mg PO bedtime PRN Encourage groups ?Referral to substance abuse program referral to outpatient psychiatric providers Discharge planning 08/25: Patient reports sleeping well last night. Focused on discharge; patient is hoping to be discharged tomorrow; she was educated to speak with her primary team regarding discharge planning. Patient requesting increase in Ativan and Oxycodone; request was declined and she was educated regarding reasoning d/t hx of substance abuse. She denies SI/HI/VH/AH. encouraged to attend groups. Continue tx plan. 08/26/25: Patient met with hospitalist, per hospitalist note: History of MRSA bacteremia + septic arthritis L4-L5 sacroileal infection w/surrounding cellulitis. Diagnosed at [facility] July 2025 Secondary to IVDU; pt used IV drugs again after leaving AMA on 07/18 from [facility] Patient was discharged to Rehab on 07/22/2025 to complete IV vancomycin and she was there until Tuesday08/19/2025 when she again left AMA. Patient had a Amos right chest, now removed with a dressing, no evidence of infection. She still needs to follow up with Neurosurgery at [facility] TTE at [facility]: no gross vegetations or significant valvular abnormalities (LVEF 55-60%) Initial orders were to continue vancomycin IV through 08/30/2025, then doxycycline 100mg bid for 1-2 months, patient refused doxy therefore was changed to Bactrim after consultation with Infectious Disease. Patient has left against medical advice from multiple facilities, multiple times since her diagnosis started. Infectious disease was consulted, patient will continue on Bactrim DS b.i.d. will need follow up with Infectious Disease upon discharge. Chronic bilateral forearm wounds Wound care consult pending Chronic hep C infection Outpatient management Iron deficiency anemia. H&H stable 34.1/10.5 Continue ferrous sulfate BID Patient medication compliant, denies side effects from medications. Do not want to take any anti psychotic medication for/severe anxiety or depression as it causing more side effects. Hyper focused on benzo, reminded many times during assessment that we will not change any benzo, oxycodone. Later on still requests to get extra benzo. Reported that she has feel more anxious being in here but she does not needed when she gets home. Discussed with patient regarding Motrin, baclofen, and increase Zoloft up to 50 mg for anxiety and depression. Patient is receptive to the plan. Do not want to retracted 3 day notice. She said it was mistaken when the care team person tell her to be admitted here, she thoughts is a dual diagnosis-not psychiatric. Therefore she does not feel this is the good fit for her care. Reported that she never reports having suicidal thoughts, but remember telling the person on care from care team that she may use if she lives on Tuesday. Reported that she still craving for substances, agreed to have nephrology social worker to send referral to [facility], but patient preferred to working on her own after discharge the beds is not available today or tomorrow. Patient hope to be seen by addiction team to increase her methadone. Denies SI/SIB/HI/AVH. Visible at times, shower, took medications. No behavior issues on the unit. No safety concerns. She is imminent risk for herself but have potential to relapsed and she is not plan to be clean. However, she wants to work on her own to refer self to [facility] after discharge, she said that I know they are having bed open soon because the checks coming so people leave and I will have bed . She hopes to get into [facility] for aftercare. Review with patient regarding antibiotic which she is aware that she needs completed the course of treatment. Discussed with nephrology social worker, nephrology social worker and this provider coming to conclusion that patient may be discharged tomorrow, still waiting or pending to hear back from [facility] which nephrology social worker sent out this morning. If no beds available, patient will be discharged tomorrow, and will work on her own at own risk if relapse. We will also have no visitor order due to contraband history brought to to the unit on admission. Baclofen 10 mg t.i.d. p.r.n.: We will not discharge with Increase Motrin up to 800 mg q.8 hours for severe pain. Increase Zoloft up to 50 mg. She took the extra dose of 25 today. We will continue to monitor for safety. Working on sending medication to preferred pharmacy with 7 day supply. Patient educated on: diagnosis, medication risk/benefits, substance abuse, therapeutic strategies and medical condition Informed Consent: understands Reason for continued inpatient stay Substantial Risk for: med/psych decompensation Time Spent With Patient Time: Total time managing care of this patient today ____ minutes.
[2025-08-26 20:00] VITALS: BP 117/56; PULSE 96; TEMP 36.8; O2SAT 100
[2025-08-27 08:00] VITALS: BP 130/70; PULSE 91; RESP 18; TEMP 36.4; O2SAT 100
[2025-08-27] MEDS: methADONE HCl 20 MG/2 ML ORAL.CONC 40 MG PO (08:07)
[2025-08-27] MEDS: Ferrous Sulfate 324 MG TABLET.DR PO (08:26)
[2025-08-27] MEDS: oxyCODONE HCl Immed Release 5 MG TABLET PO (08:32)
[2025-08-27] MEDS: Sulfamethox/Trimeth 800/160 TABLET 1 TAB PO (09:19)
--- NOTE | 2025-08-27 11:47 | PM.PSYDC ---
DS: Providers Provider Date of admission: 08/23/25 20:56 Date of discharge: 08/27/25 Primary care physician: Oniel Sanches MD Admitting clinician: Adia Quijano Attending physician on admission: Thomas Kahn Consults: 08/23/25 21:26 Consult to Wound Care Routine Consulting Provider: [facility] [place] [facility] Reason for consultation: Wound on sharmin arms. Attending physician on discharge: Thomas Kahn Discharging clinician: Indira Sánchez DS: Diagnosis Discharge Diagnosis (1) Septic arthritis of lumbar spine: Status: Acute (2) MDD (major depressive disorder), recurrent episode, severe: Status: Acute (3) Cocaine use disorder: Status: Acute (4) Opioid use disorder: Status: Acute (5) PTSD (post-traumatic stress disorder): Status: Acute DS: Medications Discharge Medications Home Medications: Home Medications ?Medication ?Instructions ?Recorded ?Confirmed methadone 40 mg soluble tablet 40 mg PO DAILY 08/16/25 08/23/25 Previous Rx's ?Medication ?Instructions ?Recorded sulfamethoxazole 800 1 tab PO Q12H #60 tabs 08/23/25 mg-trimethoprim 160 mg tablet (Bactrim DS) clonidine HCl 0.1 mg tablet 0.1 mg PO TID PRN anxiety 7 days 08/26/25 #20 tabs ferrous sulfate 324 mg (65 mg 324 mg PO BID supplement 30 days 08/26/25 iron) tablet,delayed release #60 tabs gabapentin 100 mg capsule 100 mg PO TID Pain/anxiety 7 days 08/26/25 #21 caps ibuprofen 800 mg tablet 800 mg PO Q8H PRN pain, severe 7 08/26/25 days #20 tabs lorazepam 0.5 mg tablet 0.5 mg PO BID severe anxiety 7 08/26/25 days #14 tabs oxycodone 5 mg tablet 5 mg PO BID pain 7 days #14 tabs 08/26/25 sertraline 50 mg tablet 50 mg PO DAILY depresssion/anxiety 08/26/25 14 days #14 tabs sulfamethoxazole 800 1 tab PO BID wound infection 27 08/26/25 mg-trimethoprim 160 mg tablet days #54 tabs zolpidem 5 mg tablet 5 mg PO BEDTIME PRN Insomnia 7 08/26/25 days #7 tabs Mental Status Exam Mental Status Exam Patient Appearance: Well Grooomed Patient Orientation: Person, Place, Time and Situation Level of Consciousness: Awake and Alert Patient Behavior: Appropriate, Cooperative and Good Eye Contact Mood Description: Anxious Affect Description: Calm Ability to Follow Directions: Good Speech Pattern: Clear Memory Description: Intact Hallucinations: None Delusions: Not Present Thought Process: Intact Thought Content: positive for Intact Judgement: Fair Data Data Completed and Pending Completed studies during hospitalization [Text1]: 08/23/25 08/23/25 08/23/25 12:22 12:23 12:27 WBC 3.5 L RBC 4.11 L Hgb 10.5 L Hct 34.1 L MCV 83.0 MCH 25.5 L MCHC 30.8 L RDW 22.2 H Plt Count 234 MPV 9.9 Immature Gran % (Auto) 0.3 Neut % (Auto) 62.5 Lymph % (Auto) 26.7 [place] % (Auto) 7.4 Eos % (Auto) 2.0 Baso % (Auto) 1.1 Lymph # (Auto) 0.9 L [place] # (Auto) 0.3 Eos # (Auto) 0.1 Baso # (Auto) 0.0 Abs Immat Gran (auto) 0.01 Absolute Neuts (auto) 2.2 Absolute Nucleated RBC 0.000 Nucleated RBC % (auto) 0.0 ESR 53 H Sodium 142 Potassium 3.8 Chloride 110 H Carbon Dioxide 24 Anion Gap 12 BUN 24 H Creatinine 0.66 Estim Creat Clear Calc 80.9 Estimated GFR > 60 Random Glucose 108 Estimat Average Glucose Hemoglobin A1c % Calcium 9.6 D Magnesium Total Bilirubin AST ALT Alkaline Phosphatase C-Reactive Protein 0.30 Total Protein Albumin Triglycerides Cholesterol LDL Cholesterol, Calc HDL Cholesterol Vitamin B12 Folate TSH Free T4 Hold Red Top See Note Urine Opiates Screen Ur Buprenorphine Scrn Ur Oxycodone Screen Urine Methadone Screen Urine Fentanyl Screen Ur Barbiturates Screen Ur Phencyclidine Scrn Ur Amphetamines Screen U Benzodiazepines Scrn Urine Cocaine Screen U Marijuana (THC) Screen 08/23/25 08/25/25 16:54 10:12 WBC RBC Hgb Hct MCV MCH MCHC RDW Plt Count MPV Immature Gran % (Auto) Neut % (Auto) Lymph % (Auto) [place] % (Auto) Eos % (Auto) Baso % (Auto) Lymph # (Auto) [place] # (Auto) Eos # (Auto) Baso # (Auto) Abs Immat Gran (auto) Absolute Neuts (auto) Absolute Nucleated RBC Nucleated RBC % (auto) ESR Sodium 141 Potassium 4.6 D Chloride 110 H Carbon Dioxide 23 Anion Gap 13 BUN 26 H Creatinine 1.13 Estim Creat Clear Calc 43.7 Estimated GFR 51 Random Glucose 117 H Estimat Average Glucose 88 Hemoglobin A1c % 4.7 Calcium 9.5 Magnesium 2.2 Total Bilirubin 0.1 AST 28 ALT 15 Alkaline Phosphatase 73 C-Reactive Protein Total Protein 8.1 H Albumin 4.2 Triglycerides 90 Cholesterol 172 LDL Cholesterol, Calc 108 H HDL Cholesterol 46 Vitamin B12 366 Folate 8.1 TSH 0.79 Free T4 0.86 Hold Red Top Urine Opiates Screen POSITIVE H Ur Buprenorphine Scrn Not Detected Ur Oxycodone Screen Positive H Urine Methadone Screen Positive H Urine Fentanyl Screen POSITIVE H Ur Barbiturates Screen Not Detected Ur Phencyclidine Scrn Not Detected Ur Amphetamines Screen Not Detected U Benzodiazepines Scrn Not Detected Urine Cocaine Screen POSITIVE H U Marijuana (THC) Screen Not Detected 08/23/25 12:22 Blood - Venous Blood Culture - Preliminary No growth after 48 hours. 08/23/25 12:23 Blood - Venous Blood Culture - Preliminary No growth after 48 hours. Imaging Diagnostic Imaging Impressions Finger X-Ray 08/23/25 13:50 IMPRESSION: Unremarkable examination of the left thumb. Electronically signed by: Alfredo Ramos MD 08/23/2025 01:55 PM [facility] [place] Summary Hospital Course Hospital Course: Patient is a 50-year-old female with history of MDD, PTSD, cocaine use disorder and opiate use disorder who presented to ER or medical concerns and later expressed depression and possible SI upon discharge. Plan: 15 minute safety checks Obtain collateral Start: Sertraline 25mg PO daily Ativan 0.5mg PO BID Oxycodone 5mg PO BID Gabapentin 100mg PO TID Ambien 5mg PO bedtime PRN Encourage groups ?Referral to substance abuse program referral to outpatient psychiatric providers Discharge planning 08/25: Patient reports sleeping well last night. Focused on discharge; patient is hoping to be discharged tomorrow; she was educated to speak with her primary team regarding discharge planning. Patient requesting increase in Ativan and Oxycodone; request was declined and she was educated regarding reasoning d/t hx of substance abuse. She denies SI/HI/VH/AH. encouraged to attend groups. Continue tx plan. 08/26/25: Patient met with hospitalist, per hospitalist note: History of MRSA bacteremia + septic arthritis L4-L5 sacroileal infection w/surrounding cellulitis. Diagnosed at [facility] July 2025 Secondary to IVDU; pt used IV drugs again after leaving AMA on 07/18 from [facility] Patient was discharged to Rehab on 07/22/2025 to complete IV vancomycin and she was there until Tuesday08/19/2025 when she again left AMA. Patient had a Amos right chest, now removed with a dressing, no evidence of infection. She still needs to follow up with Neurosurgery at [facility] TTE at [facility]: no gross vegetations or significant valvular abnormalities (LVEF 55-60%) Initial orders were to continue vancomycin IV through 08/30/2025, then doxycycline 100mg bid for 1-2 months, patient refused doxy therefore was changed to Bactrim after consultation with Infectious Disease. Patient has left against medical advice from multiple facilities, multiple times since her diagnosis started. Infectious disease was consulted, patient will continue on Bactrim DS b.i.d. will need follow up with Infectious Disease upon discharge. Chronic bilateral forearm wounds Wound care consult pending Chronic hep C infection Outpatient management Iron deficiency anemia. H&H stable 34.1/10.5 Continue ferrous sulfate BID Patient medication compliant, denies side effects from medications. Do not want to take any anti psychotic medication for/severe anxiety or depression as it causing more side effects. Hyper focused on benzo, reminded many times during assessment that we will not change any benzo, oxycodone. Later on still requests to get extra benzo. Reported that she has feel more anxious being in here but she does not needed when she gets home. Discussed with patient regarding Motrin, baclofen, and increase Zoloft up to 50 mg for anxiety and depression. Patient is receptive to the plan. Do not want to retracted 3 day notice. She said it was mistaken when the care team person tell her to be admitted here, she thoughts is a dual diagnosis-not psychiatric. Therefore she does not feel this is the good fit for her care. Reported that she never reports having suicidal thoughts, but remember telling the person on care from care team that she may use if she lives on Tuesday. Reported that she still craving for substances, agreed to have manager social to send referral to [facility], but patient preferred to working on her own after discharge the beds is not available today or tomorrow. Patient hope to be seen by addiction team to increase her methadone. Denies SI/SIB/HI/AVH. Visible at times, shower, took medications. No behavior issues on the unit. No safety concerns. She is imminent risk for herself but have potential to relapsed and she is not plan to be clean. However, she wants to work on her own to refer self to [facility] after discharge, she said that I know they are having bed open soon because the checks coming so people leave and I will have bed . She hopes to get into [facility] for aftercare. Review with patient regarding antibiotic which she is aware that she needs completed the course of treatment. Discussed with manager social, manager social and this provider coming to conclusion that patient may be discharged tomorrow, still waiting or pending to hear back from [facility] which manager social sent out this morning. If no beds available, patient will be discharged tomorrow, and will work on her own at own risk if relapse. We will also have no visitor order due to contraband history brought to to the unit on admission. Baclofen 10 mg t.i.d. p.r.n.: We will not discharge with Increase Motrin up to 800 mg q.8 hours for severe pain. Increase Zoloft up to 50 mg. She took the extra dose of 25 today. We will continue to monitor for safety. Working on sending medication to preferred pharmacy with 7 day supply. Patient educated on: diagnosis, medication risk/benefits, substance abuse, therapeutic strategies and medical condition Status at Discharge Functional status at discharge: independent ambulation Overall status at discharge: patient is progressing back to baseline Time Spent with Patient Time attestation: Total time managing care of this patient today ____ minutes. Time spent: Less than 30 minutes Discharge Plan Discharge Anticipated Discharge Date/Time: 08/27/25 11:00 Patient Disposition: Home, Self-Care Discharge Diagnosis: MDD, PTSD, wound infection, and polysubstance use disorders. Referrals: [facility] [Other] - 1 Week Referral Note: A referral was placed on your behalf for residential services. Please follow up with the [facility] daily for a bed. [facility] [Other] - 08/28/25 9:00 am Referral Note: Follow-up intake appointment with clinical staff. 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 Myron,Oniel Garza MD [Primary Care Provider, Internal Medicine] - 09/06/25 10:30 am Discharge Medications: New sulfamethoxazole-trimethoprim [Bactrim DS] 800-160 mg tablet 1 tab PO Q12H Qty: 60 0RF sulfamethoxazole-trimethoprim 800-160 mg Tablet 1 tab PO BID 27 Days Qty: 54 0RF clonidine HCl 0.1 mg Tablet 0.1 mg PO TID PRN (Reason: anxiety) 7 Days Qty: 20 0RF Protocol: Hold for SBP< HOLD for SBP < : 90 ibuprofen 800 mg Tablet 800 mg PO Q8H PRN (Reason: pain, severe) 7 Days Qty: 20 0RF lorazepam 0.5 mg Tablet 0.5 mg PO BID 7 Days Qty: 14 0RF oxycodone 5 mg Tablet 5 mg PO BID 7 Days Qty: 14 0RF Rx Instructions: Partial Fill upon patient request. sertraline 50 mg Tablet 50 mg PO DAILY 14 Days Qty: 14 0RF zolpidem 5 mg Tablet 5 mg PO BEDTIME PRN (Reason: Insomnia) 7 Days Qty: 7 0RF baclofen 10 mg tablet 10 mg PO TID PRN (Reason: muscle spasm) Qty: 21 0RF Continued gabapentin 100 mg Capsule 100 mg PO TID 7 Days Qty: 21 0RF ferrous sulfate 324 mg (65 mg iron) Tablet,Delayed Release (Dr/Ec) 324 mg PO BID 30 Days Qty: 60 0RF methadone 40 mg tablet,soluble 40 mg PO DAILY Discontinued oxycodone [OxyContin] 10 mg Tablet,Oral Only,Ext.Rel.12 Hr 10 mg PO TID Qty: 10 0RF Rx Instructions: Partial Fill upon patient request. Take one up to three times a day for severe pain Discharge Orders: Discharge Order (Routine); Ordered 08/27/25 Ordered By: Cherie Ramirez Diet: Regular diet Activity on Discharge: No Restrictions Stand Alone Forms: Patient Portal Discharge page, Community Support Print Language: Malaysian Activity Restrictions/Additional Instructions: your workup in the ER today was reassuring pain You have blood cultures that were drawn today and are pending. Our infectious disease team recommended Bactrim for 1 month. you may require an additional month or alternative treatment so in his important to follow up Take the antibiotic twice daily. I would recommend taking this medication with food follow up with your primary doctor, return for new or worsening symptoms Wound care instructions: bilateral arms- cleanse with soap and water, pat dry, appy xeroform, cover with foam, change daily and as needed. Care Plan Goals: Maintain mood and safe behaviors Take medications as prescribed Continue to pursue sobriety Practice coping skills Continue with outpatient providers and reach out to them as needed Health Concerns: Mood stability and behaviors Sobriety and potential for relapse Plan of Treatment: Follow up with your PCP, psychiatric provider and other outpatient providers regarding above concerns Take medications as prescribed and follow up with [facility] for dual dx admission Assessment: Assessment: Risk assessment at time of discharge: Patient was interviewed prior to discharge and found to be fully oriented and without any SI or HI. Patient has improved insight and judgment and wants to continue treatment for dual dx facility. Patient is not in imminent risk of harm to self or others and has a safety plan that includes presenting to the closest ER or calling 911 if feeling unsafe. Patient also plans to call [facility]/dual dz facility for admission after discharge as patient thinks it would be appropriate for her needs. Patient has been observed closely by nursing and unit staff throughout admission; patient has not engaged in any behaviors that suggest dangerousness to self or others and has demonstrated appropriate behaviors and impulse control Substance abuse treatment and risks discussed with patient who at this time patient already on MAT- MTD maintenance. Patient does not want to wait for result from [facility] referral which SW sent out on 08/26/25 for outpt treatment options including programs; instead patient is choosing to work out sobriety on own. Potential to relapse but patient is not meeting for mental health civil commitment. Patient Instructions: Bacteremia (ED) Discharge Date/Time: 08/27/25 11:15
== END 2025-08-27 11:15 | disposition home or self-care (01) | DRG 885 ==
LOC: HO.ED 19:56 → HO.PM5 21:09
PROVIDERS: Physician Assistant; Admitting Provider Nurse Practitioner Psychiatric/Mental Health; Emergency Provider Emergency Medicine Emergency Medical Services; PCP Internal Medicine; Visit Provider Nurse Practitioner Psychiatric/Mental Health
DX: F33.2 Major depressive disorder, recurrent severe without psychotic features (principal); F11.20 Opioid dependence, uncomplicated; D50.9 Iron deficiency anemia, unspecified; E03.9 Hypothyroidism, unspecified; B18.2 Chronic viral hepatitis C; L98.A22 Non-pressure chronic ulcer of left forearm; L98.A21 Non-pressure chronic ulcer of right forearm; F43.10 Post-traumatic stress disorder, unspecified; F14.10 Cocaine abuse, uncomplicated; Z86.14 Personal history of Methicillin resistant Staphylococcus aureus infection; Z79.899 Other long term (current) drug therapy
CPT/HCPCS: 36415; 73140; 80048; 80053; 80061; 80307; 82607; 82746; 83036; 83735; 84439; 84443; 85025; 85652; 86140; 87040; 93005; 99285; S9485

== ENCOUNTER → 2025-08-23 13:45 | Outpatient (BNV) | payer OTHER, SELFPAY | PROVIDERS: PCP Internal Medicine; Visit Provider Radiology Diagnostic Radiology | DX: Z04.3 Encounter for examination and observation following other accident (principal) | CPT/HCPCS: 73140 ==

== ENCOUNTER → 2025-08-23 20:36 | Outpatient (BNV) | payer OTHER, SELFPAY | PROVIDERS: Admitting Provider Nurse Practitioner Psychiatric/Mental Health; Emergency Provider Emergency Medicine Emergency Medical Services; PCP Internal Medicine; Visit Provider Internal Medicine Cardiovascular Disease | DX: Z13.6 Encounter for screening for cardiovascular disorders (principal) | CPT/HCPCS: 93010 ==

== ENCOUNTER → 2025-08-23 20:56 | Outpatient (BNV) | payer OTHER, SELFPAY | PROVIDERS: Admitting Provider Nurse Practitioner Psychiatric/Mental Health; Emergency Provider Emergency Medicine Emergency Medical Services; PCP Internal Medicine; Visit Provider Nurse Practitioner Family | DX: M46.56 Other infective spondylopathies, lumbar region (principal) | CPT/HCPCS: 99221 ==

== ENCOUNTER → 2025-08-23 20:56 | Outpatient (BNV) | payer OTHER, SELFPAY | PROVIDERS: Admitting Provider Nurse Practitioner Psychiatric/Mental Health; Emergency Provider Emergency Medicine Emergency Medical Services; PCP Internal Medicine; Visit Provider Registered Nurse | DX: F33.2 Major depressive disorder, recurrent severe without psychotic features (principal); F14.10 Cocaine abuse, uncomplicated; F11.90 Opioid use, unspecified, uncomplicated; M46.56 Other infective spondylopathies, lumbar region; F43.10 Post-traumatic stress disorder, unspecified | CPT/HCPCS: 90792; 99232; 99238 ==

== ENCOUNTER 2025-08-29 16:48 | Emergency (ER) | payer OTHER, SELFPAY ==
[2025-08-29 16:56] VITALS: BP 154/83; PULSE 100; RESP 18; TEMP 36.6; O2SAT 100; BMI 25.4
--- NOTE | 2025-08-29 16:56 | ED_ITS ---
HPI - General Adult General Chief complaint: Psychiatric Symptoms Stated complaint: med check Time Seen by Provider: 08/29/25 18:37 History of Present Illness HPI narrative: Author / Clinician: Michael Jordan MD Chief Complaint Auditory and visual hallucinations with anxiety after recent psychiatric discharge. History of Present Illness --- Patient was discharged from our hospital?s psychiatric frank on Tuesday and returned home. Earlier today she began experiencing auditory hallucinations described as non-commanding whispering voices occurring mainly at night, as well as visual hallucinations of perceived movement on the floor. She reports feeling ?uncomfortable? and anxious but denies any intent to harm herself. She states she had a similar episode 6?7 years ago related to a ?medication interaction.? Substance use: patient reports heroin and cocaine use, most recent use this morning (both substances). Current medications (patient-reported): sertraline, gabapentin (for prior spinal infection?associated pain), Advair, medication for GERD (unspecified), and oral Bactrim that was started after completion of IV antibiotics for a lower-spine infection treated by our infectious-disease service. 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 Review of Systems Psychiatric: Positive for auditory hallucinations, visual hallucinations, anxiety. No suicidal ideation reported. No commanding voices. All other systems not explicitly discussed. --- Physical Examination Vital Signs: Measure Value ------- ----- Physical Exam: Gen: Alert, awake, well appearing, well hydrated. Head: Atraumatic. Eyes: Anicteric, normal conjunctiva. ENT: Moist mucosa, no pallor. Neck: Supple. Skin: Chronic lesions noted on hands/wrists related to silazine use, unchanged. Respiratory: Breathing comfortably, no distress. Clear to auscultation bilaterally, symmetric chest expansion, no wheeze, rales, or rhonchi. Cardiovascular: Regular rate and rhythm. No murmurs or rub. Warm, well-perfused extremities. No edema. Abdominal: Soft, non-distended, no focal tenderness, guarding, or rebound. Neuro: Alert. Gross movement of all extremities intact. Psych: Anxious but cooperative; experiencing auditory and visual hallucinations. wrists / skin with chronic ?improving ?wounds from xylocaine seen per the patient. See below --- Medical Decision Making Preliminary Differential: - Hallucinations/anxiety ? consider substance-induced psychosis vs recurrence of primary psychiatric illness vs medication interaction. - Spinal infection ? on oral Bactrim, monitor for treatment failure/complications. No acute changes in this This is a presenting with new-onset hallucinations after recent psychiatric discharge. She is cooperative but anxious appearing. No SI or HI. She does have active hallucinations. We will place in the psychiatric pot for monitoring and care team evaluation. No acute medical issues chronic wounds and ongoing oral antibiotic treatment for spinal epidural abscess no neurologic deficits --- Plan: Initial Plan - Oral Ativan offered for acute anxiety; patient was ambivalent ( Maybe I just feel completely fine ). - Coordinate transfer to psychiatric ED pod; discuss case with psych staff. - Patient currently taking oral Bactrim for lower-spine infection. - Inspect hand/wrist lesions before transfer; no acute intervention required at present. Independent Data Analysis/Interpretation: - Imaging: Independently interpretation of imaging: Not indicated - ECG: Independent interpretation of the ECG: Not indicated - POCUS: if performed independently see separate documentation Additional Complexity: - Social Determinants of health: Chronic mental illness, substance use disorder - Discussed case with psychiatric ED staff regarding evaluation/placement. - Independent review of external records available: [ ] Risk: - Moderate: acute psychiatric symptoms with substance use --- ED Course, Updates Patient evaluated in medical ED; oral Ativan planned; awaiting bed availability in psychiatric ED pod; lesions of hands/wrists examined and unchanged. No acute medical instability noted. Disposition Pending transfer to psychiatric emergency pod for further evaluation and management once bed available. Critical Care: [N/A] Related Data Home Medications ?Medication ?Instructions ?Recorded ?Confirmed methadone 40 mg soluble tablet 40 mg PO DAILY 08/16/25 08/23/25 Previous Rx's ?Medication ?Instructions ?Recorded sulfamethoxazole 800 1 tab PO Q12H #60 tabs 08/23 mg-trimethoprim 160 mg tablet (Bactrim DS) clonidine HCl 0.1 mg tablet 0.1 mg PO TID PRN anxiety 7 days 08/26/25 #20 tabs ferrous sulfate 324 mg (65 mg 324 mg PO BID supplement 30 days 08/26/25 iron) tablet,delayed release #60 tabs gabapentin 100 mg capsule 100 mg PO TID Pain/anxiety 7 days 08/26/25 #21 caps ibuprofen 800 mg tablet 800 mg PO Q8H PRN pain, kathy re 7 08/26/25 days #20 tabs lorazepam 0.5 mg tablet 0.5 mg PO BID severe anxiety 7 08/26/25 days #14 tabs oxycodone 5 mg tablet 5 mg PO BID pain 7 days #14 tabs 08/26/25 sertraline 50 mg tablet 50 mg PO DAILY depresssion/a nxiety 08/26/25 14 days #14 tabs sulfamethoxazole 800 1 tab PO BID wound infection 27 08/26/25 mg-trimethoprim 160 mg tablet days #54 tabs zolpidem 5 mg tablet 5 mg PO BEDTIME PRN Insomnia 7 08/26/25 days #7 tabs baclofen 10 mg tablet 10 mg PO TID PRN muscle spas m #21 08/28/25 tabs Allergies Allergy/AdvReac Type Severity Reaction Status Date / Time diphenhydramine (From Allergy Severe RASH Verified 08/23/25 11:57 BENADRYL) hydroxyzine Allergy Unknown Verified 08/29/25 16:59 trazodone (TRAZODONE) AdvReac Severe DYSTONIC Verified 08/23/25 11:57 risperidone (Risperdal) AdvReac Unknown Dystonia Verified 08/23/25 11:57 [facility] Past Medical History Medical History Opioid use disorder Cocaine use disorder PTSD (post-traumatic stress disorder) MDD (major depressive disorder), recurrent episode, severe Anxiety Generalized anxiety disorder Anxiety and depression Anemia Panic attacks Peptic ulcer disease Polysubstance abuse Migraine Insomnia Hypothyroid GERD (gastroesophageal reflux disease) Surgical History History of section Family History Family History Father COPD (chronic obstructive pulmonary disease) Lung cancer Mother No problems noted. Maternal Grandmother Esophageal cancer Maternal Grandfather Pancreatic cancer Paternal Grandmother Esophageal cancer Stomach cancer Maternal Aunt Breast cancer Social History Social History Household Members: Family Household Members Other:: daughter Housing: House Do you presently have visiting nurse or other home services: No Alcohol intake: unknown Comment: patient on 15 minute safety checks Patient Tobacco Use Status: Never used Tobacco Tobacco use type: Cigarette Smoked in Last 30 Days: No e-Cigarette/Vaping Use: Never Used Second Hand Smoke Exposure: No Use of substances other than those prescribed or required for medical reasons: Yes Substance Use Type: Crack/Cocaine and Heroin Substance Use Frequency: Daily Advance Directives: No Advance Directives Information Provided: No Do you have a plan to hurt others: No Plan Patient : No service: No Current occupational status: employed Sexual orientation: Straight/Heterosexual Cognitive needs: No Hearing needs: No Vision needs: No Physical Exam ED Vital Signs: Vital Signs - 24 hr 08/29/25 16:56 08/30/25 06:45 Temperature 98 F 97.9 F Pulse Rate 100 96 Respiratory Rate 18 18 Blood Pressure 154/83 H 125/77 Pulse Oximetry 100 100 Oxygen Delivery Method Room Air Room Air BMI result Body Mass Index 25.4 Course Course Course Narrative: This is a Rapid Medical Examination (RME) performed by Philippe Ledezma PA-C in triage. Full HPI, ROS, assessment and treatment plan per primary provider in the Main ED. Hx: 50 yo F hx of IV drug abuse, hypothyroidism, GERD, anxiety, discharged from 5 days ago here w/ [facility]. using heroin and cocaine since being discharge on top of her new medications. she feels she was discharged too soon. she is also currently on PO bactrim for a spinal infection and zylazine wounds - reports back pain from this. denies SI/HI. Plan: med clearance, CARE team see photos of b/l UEs below: L 08/30/2025 0948 Farheen Flanagan PA-C ---> Patient evaluted by the CARE team who recommended discharge. Patient to continue PO antibiotic as previously prescribed for her known skin + spine infections. Observation ended at 0948 on 08/30/2025. Medications Administered Discontinued Medications Generic Name Dose Route Start Last Admin Trade Name Freq PRN Reason Stop Dose Admin Bacitracin 4 appl 08/29/25 20:37 08/29/25 21:41 Bacitracin Oint 0.9 Gm Packet TOPICAL 08/29/25 20:38 4 appl ONCE ONE Administration Protocol Gabapentin 100 mg 08/29/25 21:00 08/30/25 08:50 Gabapentin 100 Mg Capsule PO 100 mg TID YESENIA Administration Lorazepam 1 mg 08/29/25 18:51 08/29/25 20:11 Lorazepam 1 Mg Tablet PO 08/29/25 18:52 1 mg ONCE ONE Administration Lorazepam 0.5 mg 08/29/25 21:00 08/30/25 08:50 Lorazepam 0.5 Mg Tablet PO 0.5 mg BID YESENIA Administration Naloxone HCl 8 mg 08/30/25 09:51 08/30/25 10:01 Naloxone Hcl Nasal Take Home 4 Mg [place] NOSTRILALT 08/30/25 09:52 8 mg ONCE ONE Administration Oxycodone HCl 5 mg 08/29/25 21:00 08/30/25 08:50 Oxycodone Hcl Immed Release 5 Mg Tablet PO 5 mg BID [facility] Administration Sertraline HCl 50 mg 08/29/25 20:45 08/30/25 08:50 Sertraline Hcl 50 Mg Tablet PO 50 mg DAILY YESENIA Administration Trimethoprim/Sulfamethoxazole 1 tab 08/29/25 21:00 08/30/25 08:50 Sulfamethox/Trimeth 800/160 Tablet PO 1 tab BID YESENIA Administration Medical Decision Making Lab Data 08/29/25 18:22 08/29/25 18:22 Labs: Lab Results 08/29/25 08/29/25 Range/Units 17:30 18:22 WBC 4.6 L (4.8-10.8) X10*3/uL RBC 4.23 (4.20-5.50) X10*6/uL Hgb 11.1 L (12.0-16.0) g/dl Hct 35.4 L (37.0-47.0) % MCV 83.7 (80.0-98.0) fL MCH 26.2 L (27.0-33.0) pg MCHC 31.4 (31.0-35.0) g/dl RDW 20.4 H (11.0-16.0) % Plt Count 251 (160-400) X10*3/uL MPV 10.1 (9.4-12.3) fL Immature Gran % (Auto) 0.2 (0.0-0.4) % Neut % (Auto) 65.4 (45-73) % Lymph % (Auto) 21.9 (20-40) % [place] % (Auto) 8.8 (2-11) % Eos % (Auto) 2.8 (0-4) % Baso % (Auto) 0.9 (0-2) % Lymph # (Auto) 1.0 L (1.2-4.9) X10*3/uL [place] # (Auto) 0.4 (0.1-1.2) X10*3/uL Eos # (Auto) 0.1 (0.0-0.4) X10*3/uL Baso # (Auto) 0.0 (0.0-0.2) X10*3/uL Abs Immat Gran (auto) 0.01 (0.00-0.03) X10*3/uL Absolute Neuts (auto) 3.0 (2.0-8.3) x10*3/uL Absolute Nucleated RBC 0.000 (0.0-0.012) X10*3/uL Nucleated RBC % (auto) 0.0 (0.0-0.2) /100WBC Sodium 139 (135-145) mmol/L Potassium 4.1 (3.3-5.1) mmol/L Chloride 107 (96-108) mmol/L Carbon Dioxide 22 (22-29) mmol/L Anion Gap 14 (12-20) BUN 36 H (9-16) mg/dL Creatinine 0.87 (0.5-1.4) mg/dL Estim Creat Clear Calc 63.5 Estimated GFR > 60 Random Glucose 88 (60-115) mg/dL Calcium 9.7 (8.4-10.2) mg/dL Magnesium 2.2 (1.6-2.6) mg/dL Total Bilirubin 0.2 (0.0-1.0) mg/dL AST 34 H (5-31) U/L ALT 22 (0-31) U/L Alkaline Phosphatase 76 (39-117) U/L Total Protein 8.6 H (6.5-8.0) g/dL Albumin 4.6 (3.5-5.0) g/dL Lipase 10 (8-78) U/L Urine Color Yellow Urine Appearance Clear Urine pH 5.5 (5.0-9.0) Ur Specific [place] 1.025 (1.005-1.025) Urine Protein Negative (Neg-Trace) mg/dL Urine Glucose (UA) Negative (Negative) mg/dL Urine Ketones Negative (Negative) mg/dL Urine Blood Moderate (2+) H (Negative) Urine Nitrite Negative (Negative) Ur Leukocyte Esterase Negative (Negative) Urine RBC 6-10 H (0-2) /HPF Urine WBC 0-5 (0-5) /HPF Ur Squamous Epith Cells 0-2 (0-2) /HPF Urine Bacteria None Seen (None Seen) Hyaline Casts 0-2 (0-2) /LPF Salicylates < 5.0 L (15-30) mg/dL Urine Opiates Screen POSITIVE H (Not Detect) Ur Buprenorphine Scrn Not Detected (Not Detect) ng/mL Ur Oxycodone Screen Positive H (Not Detect) ng/mL Urine Methadone Screen Positive H (Not Detect) ng/mL Urine Fentanyl Screen POSITIVE H (Not Detect) Acetaminophen < 3 (<30) mcg/mL Ur Barbiturates Screen Not Detected (Not Detect) Ur Phencyclidine Scrn Not Detected (Not Detect) Ur Amphetamines Screen Not Detected (Not Detect) U Benzodiazepines Scrn Not Detected (Not Detect) Urine Cocaine Screen POSITIVE H (Not Detect) U Marijuana (THC) Screen Not Detected (Not Detect) Ethyl Alcohol < 10 mg/dL Discharge Plan Discharge Clinical Impression: MDD (major depressive disorder), recurrent episode, severe Patient Disposition: Home, Self-Care Instructions: Depression (ED), Polysubstance Use Disorder (ED) Additional Instructions: You were seen for a concern regarding your mental / behavioral behavioral health. It is important after this visit today that you follow up with either your mental / behavioral health or primary care provider within 7 days (from today).? Return for any worsening symptoms or concerns such as thoughts of harming yourself or others. Please call 911 immediately if you feel your mental health is worsening.? National Suicide and Crisis Lifeline: Available 24 hours a day, 7 days a week, 365 days a year Dial 278 with any telephone to speak to someone immediately [facility] (Mental / Behavioral health therapist: [address] [place] [address] [facility]: [address] [place] [address] Open from 10am - 12pm (walk ins welcome) [facility] Crisis Services: [address] [place] [address] Walk in hours from 10am - 12pm Behavioral health Network: [address] [place] [address] [address] [place] [address] Tuesday through Tuesday 8am - 8pm Tuesday and Tuesday 9am - 5pm L You have been given Narcan to take home with you today, please keep it near you if you are going to use again, so others can use it on you if needed.? The number one risk for fatal overdose is using alone. [employer] is a 28/03 hotline where you can be on the phone with someone while you use, and they can call for help if they suspect an overdose: [phone] Things to look out for when you leave include: severe vomiting or diarrhea, headaches, muscle cramps, fever, coughing, chest pain, or if you feel so short of breath you cannot walk more than a few steps. Please seek care / return or proceed to your nearest emergency department or call 911 any time for worsening symptoms.? You may have been provided with safer injection?items, please take the time to take care of YOU and your health. Use new supplies whenever possible to lessen the chances of infections and other illnesses.? If you need more supplies, please go [facility]: [address] [place] [address] OR you can call or text to coordinate delivery of safer supplies: If you decide you want to stop or cut down on how much you?re using, please call the numbers in the booklet provided to you or you can come to our outpatient Addiction Treatment office: [facility] (M-F 9am-5p) [address] [place] [address], [address] [place] [address]. [phone] Continue taking your previously prescribed antibiotic for your known infections. IF you are prescribed medications and/or you are taking over the counter medications - it is very important you continue to do so as prescribed / directed unless told otherwise. Follow up with your primary care provider. Return to the emergency department immediately if your symptoms worsen or if you develop any numbness, tingling, dizziness, shortness of breath, difficulty breathing, chest pain, blurry vision, loss of vision, nausea, vomiting, abdominal pain, fever, chills, back pain, or any other complaints. If you do not have a primary care provider - call any of the below numbers to establish and follow up with a primary care provider. [facility] ([place]) [phone] [place] [address], [address] [facility] ([facility]) [phone] [place] [address], [address] [facility], [address] [facility] ([facility]) [phone] [place] [address], [address] [facility], [address] [facility] ([place]) [phone] [place] [address] 2 [facility], [address] [facility] [phone] [address] [facility], [address] Prescriptions: No Action sulfamethoxazole-trimethoprim [Bactrim DS] 800-160 mg tablet 1 tab PO Q12H Qty: 60 0RF sulfamethoxazole-trimethoprim 800-160 mg Tablet 1 tab PO BID 27 Days Qty: 54 0RF clonidine HCl 0.1 mg Tablet 0.1 mg PO TID PRN (Reason: anxiety) 7 Days Qty: 20 0RF Protocol: Hold for SBP< HOLD for SBP < : 90 ibuprofen 800 mg Tablet 800 mg PO Q8H PRN (Reason: pain, severe) 7 Days Qty: 20 0RF lorazepam 0.5 mg Tablet 0.5 mg PO BID 7 Days Qty: 14 0RF oxycodone 5 mg Tablet 5 mg PO BID 7 Days Qty: 14 0RF Rx Instructions: Partial Fill upon patient request. sertraline 50 mg Tablet 50 mg PO DAILY 14 Days Qty: 14 0RF zolpidem 5 mg Tablet 5 mg PO BEDTIME PRN (Reason: Insomnia) 7 Days Qty: 7 0RF gabapentin 100 mg Capsule 100 mg PO TID 7 Days Qty: 21 0RF ferrous sulfate 324 mg (65 mg iron) Tablet,Delayed Release (Dr/Ec) 324 mg PO BID 30 Days Qty: 60 0RF baclofen 10 mg tablet 10 mg PO TID PRN (Reason: muscle spasm) Qty: 21 0RF methadone 40 mg tablet,soluble 40 mg PO DAILY Referrals: Po,Oniel Garza MD [Primary Care Provider, Internal Medicine] Interventions: [place]-Suicide Risk Severity Scale Last Done: 08/29/25 19:34 ED Discharge Assessment Last Done: 08/30/25 10:03 Discharge Date/Time: 08/30/25 10:04 Print Language: Czech
--- OUTSIDE RECORDS SUMMARY | 2025-08-29 17:16 | XMS_ITS | Clinical Summary ---
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 Phone Physician, Pcp Unknown Primary [...] - 08/23/2025 4:56 AM EST Hospital Encounter Medical Surgical Unit [address] [place] [address] Candi Donaldson MD Sondhi, Vikram, MD Zipagan, Maged Jara MD Septic arthritis of lumbar spine ([facility] V24) (Primary Dx); Arm ulcer, with fat layer exposed; Cellulitis of upper extremity, unspecified laterality; Opiate abuse, continuous ([facility] V24, [facility] V28) Discharge Disposition: Left Against Medical Advice 07/02/2025 5:59 PM EDT - 07/16/2025 11:00 PM EST Hospital Encounter Urology Unit [address] [place] [address] Adrian Rodriguez MD Jones, Christopher, MD Bukalo, Nermina, MD Surendran, Anupama, MD Rasul, Yar M, MD Seralathan, Manikandan, MD Sepsis due to methicillin resistant Staphylococcus aureus (MRSA) without acute organ dysfunction ([facility] V24, [facility] V28) (Primary Dx); Bacteremia; Septic arthritis of intervertebral joint ([facility] V24); Septic arthritis of lumbar spine ([facility] V24) Discharge Disposition: Left Against Medical Advice 06/30/2025 7:05 AM EDT - 07/02/2025 9:06 AM EDT Hospital Encounter Medical Surgical Unit [address] [place] [address] Enriqueta Dunaway MD Alam, Aroosa, [...] for your loved ones. For example, child welfare specialist or elderly care for an older adult? [...] Description 09/10/2025 8:00 AM EST [facility] [address] [place] [phone] Health Maintenance Due Date Last Done Comments [...] EST SALAS URINE CULTURE TUBE Routine 08/21/20 10:51 AM EST EXTRA TUBES Routine 08/21/2025 [...] TROUGH Timed 07/06/2025 9: 51 AM EDT DC IMMUNOFIXATION ELECTROPHORESIS SERUM Routine 07/06/2025 5:46 AM EDT DC PROTEIN ELECTROPHORETIC FRACTIONATION & QUANTITATION SERUM Routine [...] - 20.0 mcg/mL 08/23/2025 1:46 AM EST [facility] Blood Venous blood specimen / Unknown Venipuncture / Unknown 08/23/2025 12:54 AM EST 08/23/2025 1:04 AM EST us Titus BURKS LAB BLOOD ORDERABLES Jimena alejandrina Result [facility] [address] [place] [address], * ECG-Annotated (08/23/2025) us Provider Onbase MD ECG ORDERABLES Final Result * (ABNORMAL) CBC auto differential (08/22/2025 5:55 AM EST) Only the most recent of11 resultswithin the time period is included. WBC 3.5(L) 4.8 - 10.8 K/mcL LAB HEMETOLOGY METHOD 08/22/2025 6:54 AM [facility] RBC 3.90 3.80 - 4.80 M/mcL LAB HEMETOLOGY METHOD 08/22/2025 6:54 AM [facility] Hemoglobin 9.9(L) 11.5 - 16.0 g/dL LAB HEMETOLOGY METHOD 08/22/2025 6:54 AM [facility] Hematocrit 32.2(L) 35.0 - 47.0 % LAB HEMETOLOGY METHOD 08/22/2025 6:54 AM [facility] MCV 83.0 79.0 - 98.0 FL LAB HEMETOLOGY METHOD 08/22/2025 6:54 AM [facility] MCH 25.5(L) 27.0 - 32.0 pcg LAB HEMETOLOGY METHOD 08/22/2025 6:54 AM [facility] MCHC 30.7(L) 32.0 - 37.0 g/dL LAB HEMETOLOGY METHOD 08/22/2025 6:54 AM [facility] RDW 22.5(H) 11.0 - 15.0 % LAB HEMETOLOGY METHOD 08/22/2025 6:54 AM [facility] Platelets 234 130 - 400 K/mcL LAB HEMETOLOGY METHOD 08/22/2025 6:54 AM [facility] MPV 9.5 7.0 - 11.0 FL LAB HEMETOLOGY METHOD 08/22/2025 6:54 AM [facility] NRBC 0.0 <1.0 % LAB HEMETOLOGY METHOD 08/22/2025 6:54 AM [facility] NRBC Absolute 0.00 <0.10 K/mcL LAB HEMETOLOGY METHOD 08/22/2025 6:54 AM [facility] Neutrophils Relative 62.7 % LAB HEMETOLOGY METHOD 08/22/2025 6:54 AM [facility] Lymphocytes Relative 22.8 % LAB HEMETOLOGY METHOD 08/22/2025 6:54 AM [facility] Monocytes Relative 9.7 % LAB HEMETOLOGY METHOD 08/22/2025 6:54 AM [facility] Eosinophils Relative 3.4 % LAB HEMETOLOGY METHOD 08/22/2025 6:54 AM [facility] Basophils Relative 1.1 % LAB HEMETOLOGY METHOD 08/22/2025 6:54 AM [facility] Immature Granulocytes Relative 0.3 % LAB HEMETOLOGY METHOD 08/22/2025 6:54 AM [facility] Neutrophils Absolute 2.20 1.50 - 7.00 K/mcL LAB HEMETOLOGY METHOD 08/22/2025 6:54 AM [facility] Lymphocytes Absolute 0.80(L) 1.00 - 5.00 K/mcL LAB HEMETOLOGY METHOD 08/22/2025 6:54 AM [facility] Monocytes Absolute 0.34 0.20 - 1.00 K/mcL LAB HEMETOLOGY METHOD 08/22/2025 6:54 AM [facility] Eosinophils Absolute 0.12 0.00 - 0.50 K/mcL LAB HEMETOLOGY METHOD 08/22/2025 6:54 AM [facility] Basophils Absolute 0.04 0.00 - 0.20 K/mcL LAB HEMETOLOGY METHOD 08/22/2025 6:54 AM EST [facility] Immature Granulocytes Absolute 0.01 0.00 - 0.03 K/mcL LAB HEMETOLOGY METHOD 08/22/2025 6:54 AM [facility] Blood Venous blood specimen / Unknown Venipuncture / Unknown 08/22/2025 5:55 AM EST 08/22/2025 6:25 AM EST us Titus BURKS LAB BLOOD ORDERABLES Jimena tinoco Result [facility] [address] [place] [address], [place] [phone] * (ABNORMAL) Comprehensive metabolic panel (08/22/2025 5:55 AM EST) Only the most recent of3 resultswithin the time period is included. Sodium 143 133 - 145 mmol/L 08/22/2025 7:48 AM [facility] Potassium 4.0 3.5 - 5.5 mmol/L 08/22/2025 7:48 AM [facility] Chloride 108 96 - 110 mmol/L 08/22/2025 7:48 AM [facility] CO2 26 21 - 32 mmol/L 08/22/2025 7:48 AM [facility] Anion Gap 9 3 - 11 08/22/2025 7:48 AM [facility] Glucose 97 70 - 100 mg/dL 08/22/2025 7:48 AM [facility] BUN 26(H) 5 - 25 mg/dL 08/22/2025 7:48 AM [facility] Creatinine 0.88 0.50 - 1.10 mg/dL 08/22/2025 7:48 AM [facility] eGFR 81 >=60 mL/min/1. 73m2 08/22/2025 7:48 AM [facility] Comment:Calculation based on the Chronic Kidney Disease Epidemiology Collaboration (CKD-EPI) equation refit without adjustment for race. BUN/Creatinine Ratio 29.5 08/22/2025 7:48 AM [facility] Calcium 8.4(L) 8.5 - 10.5 mg/dL 08/22/2025 7:48 AM [facility] AST (SGOT) 16 10 - 42 unit/L 08/22/2025 7:48 AM [facility] ALT (SGPT) 11 10 - 60 unit/L 08/22/2025 7:48 AM [facility] Alkaline Phosphatase 75 42 - 121 unit/L 08/22/2025 7:48 AM [facility] Total Protein 7.4 6.0 - 8.0 g/dL 08/22/2025 7:48 AM [facility] Albumin 3.7 3.2 - 5.0 g/dL 08/22/2025 7:48 AM [facility] Total Bilirubin 0.2 0.0 - 1.4 mg/dL 08/22/2025 7:48 AM [facility] Blood Venous blood specimen / Unknown Venipuncture / Unknown 08/22/2025 5:55 AM EST 08/22/2025 6:25 AM EST Titus BURKS LAB BLOOD ORDERABLES Jimena l Result [facility] [address] [place] [address], * Troponin I High Sensitivity (08/21/2025 1:13 PM EST) Only the most recent of2 resultswithin the time period is included. High Sensitivity Troponin I 4 <=34 ng/L 08/21/2025 1:56 PM [facility] Blood Venous blood specimen / Unknown Venipuncture / Unknown 08/21/2025 1:13 PM EST 08/21/2025 1:28 PM EST us Candi Donaldson MD LAB BLOOD ORDERABLES Final Resul t [facility] [address] [place] [address], [place] [phone] * XR Chest 2 Views (08/21/2025 11:20 [...] midportion of the superior vena cava. Code 44966 -------- FINAL REPORT -------- Dictated By: Keron Delacruz Dictated Date: 08/21/2025 11:34 ET Assigned Physician: Keron Delacruz Reviewed and Electronically Signed By: Keron Delacruz Signed Date: 08/21/2025 12:24 ET Workstation ID: [id number] Transcribed By: Self Edit Transcribed Date: 08/21/2025 [...] midportion of the superior vena cava. Code 50126 -------- FINAL REPORT -------- Dictated By: Keron Delacruz Dictated Date: 08/21/2025 11:34 ET Assigned Physician: Keron Delacruz Reviewed and Electronically Signed By: Keron Delacruz Signed Date: 08/21/2025 12:24 ET Workstation ID: [id number] Transcribed By: Self Edit Transcribed Date: 08/21/2025 11:34 ET us Candi Donaldson MD IMG XR PROCEDURES Final Result * 12-Lead ECG (08/21/2025 11:06 AM EST) Ventricular Rate ECG 63 BPM GEMUSE Atrial Rate 63 BPM GEMUSE P-R Interval 94 ms GEMUSE QRS Duration 72 ms GEMUSE Q-T Interval 418 ms GEMUSE QTc 427 ms GEMUSE P Wave [place] 47 degrees GEMUSE R [place] -12 degrees GEMUSE ECG Interpretation Sinus rhythm with sinus arrhythmia with short DC When compared with ECG of 15-APR-2020 08:32, [...] with reflex microscopic (08/21/2025 10:51 AM EST) [facility] Specific [place] Urine 1.027 1.003 - 1.030 LAB URINALYSIS - AUTOMATED METHOD 08/21/2025 11:39 AM [facility] pH, Urine 6.0 5.0 - 8.0 pH LAB URINALYSIS - AUTOMATED METHOD 08/21/2025 11:39 AM [facility] Leukocytes, Urine Negative Negative LAB URINALYSIS - AUTOMATED METHOD 08/21/2025 11:39 AM [facility] Nitrite, Urine Negative Negative LAB URINALYSIS - AUTOMATED METHOD 08/21/2025 11:39 AM [facility] Protein, Urine 30(A) <=Trace mg/dL LAB URINALYSIS - AUTOMATED METHOD 08/21/2025 11:39 AM [facility] Glucose, Urine Negative Negative mg/dL LAB URINALYSIS - AUTOMATED METHOD 08/21/2025 11:39 AM [facility] Ketones, Urine Trace(A) Negative mg/dL LAB URINALYSIS - AUTOMATED METHOD 08/21/2025 11:39 AM [facility] Urobilinogen, Urine 1.0 0.2 - 1.0 mg/dL LAB URINALYSIS - AUTOMATED METHOD 08/21/2025 11:39 AM [facility] Bilirubin, Urine Negative Negative LAB URINALYSIS - AUTOMATED METHOD 08/21/2025 11:39 AM [facility] Blood, Urine Small(A) Negative LAB URINALYSIS - AUTOMATED METHOD 08/21/2025 11:39 AM [facility] RBC, Urine 10(H) 0 - 4 /HPF 08/21/2025 11:39 AM [facility] WBC, Urine 10(H) 0 - 4 /HPF 08/21/2025 11:39 AM [facility] Squamous Epithelial, Urine 40 0 - 60 /LPF 08/21/2025 11:39 AM [facility] Bacteria, Urine Negative Negative /HPF 08/21/2025 11:39 AM [facility] Hyaline Casts, Urine 10(H) 0 - 3 /LPF 08/21/2025 11:39 AM [facility] Urine Urine specimen obtained by clean catch procedure / Unknown Non-blood Collection / Unknown 08/21/2025 10:51 AM EST 08/21/2025 11:13 AM EST us Candi Donaldson MD LAB URINE ORDERABLES Final Resul t [facility] [address] [place] [address], [place] [phone] * Salas urine culture tube (08/21/2025 10:51 AM EST) Only the most recent of3 resultswithin the time period is included. Extra Tube Hold for add-ons. 08/21/2025 4:01 PM [facility] Comment:Auto resulted. Urine Urine specimen obtained by clean catch procedure / Unknown 08/21/2025 10:51 AM EST 08/21/2025 2:31 PM EST us Candi Donaldson MD LAB URINE ORDERABLES Final Resul t [facility] [address] [place] [address], [place] [phone] * (ABNORMAL) Drug abuse screen 8a panel, urine (08/21/2025 10:51 AM EST) Only the most recent of2 resultswithin the time period is included. Amphetamine Screen, Ur Negative Negative 08/21/2025 1:30 PM EST [facility] Comment:Certain OTC medicati ons containing ephedrine, phenylephrine, pseudoephedrine and phenylpropanolamine can cause false positive results. Barbiturate Screen, Ur Negative Negative 08/21/2025 1:30 PM EST [facility] Benzodiazepine Screen, Ur Negative Negative 08/21/2025 1:30 PM EST [facility] Cocaine Screen, Ur Positive(A ) Negative 08/21/2025 1:30 PM EST [facility] Opiate Screen, Ur Positive(A ) Negative 08/21/2025 1:30 PM [facility] Cannabinoid (THC) Screen, Ur Negative Negative 08/21/2025 1:30 PM EST [facility] Comment:Specimens from patie nts taking pantoprazole sodium (Protonix) have been shown to produce false positive results. Oxycodone Screen, Ur Negative Negative 08/05 1:30 PM EST [facility] Fentanyl, Ur Positive(A ) Negative 08/21/2025 1:30 PM [facility] Urine Urine specimen obtained by clean catch procedure / Unknown Non-blood Collection / Unknown 08/21/2025 10:51 AM EST 08/21/2025 11:13 AM EST [facility] - 08/21/2025 1:30 PM EST [...] ORDERABLES Final Resul t Performing Organization Address [facility] Co de Phone Number [facility] [address] [place] [address], * Lactate, with reflex (08/21/2025 10:48 AM EST) LACTIC ACID 0.8 0.4 - 2.0 mmol/L 08/21/2025 11:24 AM EST [facility] Blood Venous blood specimen / Unknown Venipuncture / Unknown 08/21/2025 10:48 AM EST 08/21/2025 10:57 AM EST us Candi Donaldson MD LAB BLOOD ORDERABLES Final Resul t Performing Organization Address [facility] de Phone Number [facility] [address] [place] [address], [place] [phone] * Culture blood (08/21/2025 10:48 AM EST) Only the most recent of11 resultswithin the time period is included. Culture, Blood No growth at 5 days 08/26/2025 12:01 PM EST [facility] Blood Venous blood specimen / Unknown Venipuncture / Unknown 08/21/2025 10:48 AM EST 08/21/2025 10:57 AM EST us Candi Donaldson MD LAB MICROBIOLOGY - GENERAL ORDER RICARDO Final Result Performing Organization Address [facility] Co de Phone Number [facility] [address] [place] [address], [place] [phone] * Ethanol (08/21/2025 10:48 AM EST) Only the most recent of2 resultswithin the time period is included. Ethanol Level <3 0 - 10 mg/dL 08/21/2025 11:55 AM EST [facility] Blood Venous blood specimen / Unknown Venipuncture / Unknown 08/21/2025 10:48 AM EST 08/21/2025 10:58 AM EST us Candi Donaldson MD LAB BLOOD ORDERABLES Final Resul t Performing Organization Address City/[facility]/ZIP Co de Phone Number [facility] [address] [place] [address], [place] [phone] * Vancomycin random (08/21/2025 10:48 AM EST) Vancomycin Rm <3.0 mcg/mL 08/21/2025 3:17 PM EST [facility] Blood Venous blood specimen / Unknown Venipuncture / Unknown 08/21/2025 10:48 AM EST 08/21/2025 10:58 AM EST us Candi Donaldson MD LAB BLOOD ORDERABLES Final Resul t Performing Organization Address [facility] de Phone Number [facility] [address] [place] [address], [place] [phone] * Creatinine serum (07/13/2025 10:28 PM EST) Only the most recent of2 resultswithin the time period is included. Creatinine 0.74 0.50 - 1.10 mg/dL LAB CHEMISTRY METHOD 07/13/2025 10:59 PM EST [facility] eGFR 100 >=60 mL/min/1. 73m2 LAB CHEMISTRY METHOD 07/13/2025 10:59 PM EST [facility] Comment:Calculation based on the Chronic Kidney Disease Epidemiology Collaboration (CKD-EPI) equation refit without adjustment for race. Blood Venous blood specimen / Unknown Venipuncture / Unknown 07/13/2025 10:28 PM EST 07/13/2025 10:37 PM EST us Prabhjot Neely MD LAB BLOOD ORDERABLES Final Resul t [facility] [address] [place] [address], [place] [phone] * Insert PICC line (07/09/2025 9:12 PM EST) Narrative Kathy Garcia RN - 07/09/2025 9:12 PM EST Kathy Garcia RN 07/09/2025 9:16 PM PICC Line Insertion Procedure Note Procedure: Insertion of 4F single lumen Bard PowerPICC Lot: [id number] Exp: Indications: Vancomycin IV until08/30/25 Procedure Details: [...] LAB CHEMISTRY METHOD 07/08/2025 7:19 AM EST [facility] Blood Venous blood specimen / Unknown Venipuncture / Unknown 07/08/2025 6:02 AM EST 07/08/2025 6:31 AM EST Gwendolyn BURKS LAB BLOOD ORDERABLES Final Result [facility] [address] [place] [address], [place] [phone] * Basic metabolic panel (07/08/2025 6:02 AM EST) Only the most recent of9 resultswithin the time period is included. Sodium 140 133 - 145 mmol/L LAB CHEMISTRY METHOD 07/08/2025 7:19 AM [facility] Potassium 3.8 3.5 - 5.5 mmol/L LAB CHEMISTRY METHOD 07/08/2025 7:19 AM [facility] Chloride 108 96 - 110 mmol/L LAB CHEMISTRY METHOD 07/08/2025 7:19 AM [facility] CO2 27 21 - 32 mmol/L LAB CHEMISTRY METHOD 07/08/2025 7:19 AM [facility] Anion Gap 5 3 - 11 LAB CHEMISTRY METHOD 07/08/2025 7:19 AM [facility] Glucose 84 70 - 100 mg/dL LAB CHEMISTRY METHOD 07/08/2025 7:19 AM [facility] BUN 22 5 - 25 mg/dL LAB CHEMISTRY METHOD 07/08/2025 7:19 AM [facility] Creatinine 0.81 0.50 - 1.10 mg/dL LAB CHEMISTRY METHOD 07/08/2025 7:19 AM [facility] eGFR 90 >=60 mL/min/1. 73m2 LAB CHEMISTRY METHOD 07/08/2025 7:19 AM [facility] Comment:Calculation based on the Chronic Kidney Disease Epidemiology Collaboration (CKD-EPI) equation refit without adjustment for race. BUN/Creatinine Ratio 27.2 LAB CHEMISTRY METHOD 07/08/2025 7:19 AM EST [facility] ([facility] Calcium 8.9 8.5 - 10.5 mg/dL LAB CHEMISTRY METHOD 07/08/2025 7:19 AM EST [facility] Blood Venous blood specimen / Unknown Venipuncture / Unknown 07/08/2025 6:02 AM EST 07/08/2025 6:31 AM EST Gwendolyn BURKS LAB BLOOD ORDERABLES Final Result [facility] ([facility]) [facility] [address] [place] [address], * Vascular US duplex upper extremity venous [...] by: Arina Burt MD on 07/07/2025 18:19:19 us Gwendolyn BURKS CV VASCULAR PROCEDURES Fin al Result * Pathologist Review Immunofixation (07/06/2025 5:46 AM EDT) Pathologist Interpretation Mabel Lawrence MD 07/08/2025 2:48 PM EST [facility] Blood Venous blood specimen / Unknown Venipuncture / Unknown 07/06/2025 5:46 AM EDT 07/06/2025 6:34 AM EDT Prabhjot Neely MD LAB BLOOD ORDERABLES Final Resul t Performing Organization Address City/[facility]/ZIP Co de Phone Number [facility] [address] [place] [address], [place] [phone] * PATHOLOGIST REVIEW PROTEIN ELECTROPHORESIS (07/06/2025 5:46 AM EDT) Pathologist Interpretation Mabel Lawrence MD 07/08/2025 2:48 PM EST [facility] Blood Venous blood specimen / Unknown Venipuncture / Unknown 07/06/2025 5:46 AM EDT 07/06/2025 6:34 AM EDT us Gwendolyn BURKS LAB BLOOD ORDERABLES Final Result Performing Organization Address City/[facility]/ZIP Co de Phone Number [facility] [address] [place] [address], [place] [phone] * (ABNORMAL) Hemoglobin electrophoresis (07/06/2025 5:46 AM EDT) Hemoglobin A1 98.0(H) 96.5 - 97.8 % 07/08/2025 11:27 AM EST [facility] Hemoglobin A2 2.0(L) 2.2 - 3.2 % 07/08/2025 11:27 AM EST [facility] Hemoglobin F 0.0 <2.0 % 07/08/2025 11:27 AM EST [facility] Hemoglobin S 0.0 0.0 % 07/08/2025 11:27 AM EST [facility] Hemoglobin C 0.0 0.0 % 07/08/2025 11:27 AM EST [facility] Interpretation See Below 07/08/2025 11:27 AM EST [facility] Comment: No abnormal hemoglobin variants seen on hemoglobin electrophoresis. Hemoglobin A2 is decreased. Common causes include, but are not limited to, iron deficiency, alpha thalassemia, and delta thalassemia. Test performed at [facility], [address] , [place] [address] Magy Concepcion MD, PhD - [employer] Blood Venous blood specimen / Unknown Venipuncture / Unknown 07/06/2025 5:46 AM EDT 07/06/2025 6:35 AM EDT Gwendolyn BURKS LAB BLOOD ORDERABLES Final Result [facility] [address] [place] [address] * Immunofixation electrophoresis serum (07/06/2025 5:46 AM EDT) [facility] Immunofixation Result, Serum IgG Lambda monoclonal immunoglobulins detected. LAB CHEMISTRY METHOD 07/08/2025 2:48 PM EST [facility] Blood Venous blood specimen / Unknown Venipuncture / Unknown 07/06/2025 5:46 AM EDT 07/06/2025 6:34 AM EDT Prabhjot Neely MD LAB BLOOD ORDERABLES Final Resul t [facility] [address] [place] [address], [place] [phone] * (ABNORMAL) Immunoglobulins IgG, IgA, IgM (07/06/2025 5:46 AM EDT) [facility] Total IgG 2,240(H) 549 - 1,584 mg/dL LAB CHEMISTRY METHOD 07/08/2025 11:52 AM [facility] IgA 308 61 - 348 mg/dL LAB CHEMISTRY METHOD 07/08/2025 11:52 AM [facility] IgM 255 23 - 259 mg/dL LAB CHEMISTRY METHOD 07/08/2025 11:52 AM [facility] Blood Venous blood specimen / Unknown Venipuncture / Unknown 07/06/2025 5:46 AM EDT 07/06/2025 6:34 AM EDT us Prabhjot Neely MD LAB BLOOD ORDERABLES Final Resul t [facility] [address] [place] [address], [place] [phone] * (ABNORMAL) Protein electrophoresis, serum (07/06/2025 5:46 AM EDT) Total Protein 7.4 6.0 - 8.0 g/dL LAB CHEMISTRY METHOD 07/08/2025 2:48 PM [facility] Albumin, Serum 2.7(L) 2.9 - 4.1 g/dL LAB CHEMISTRY METHOD 07/08/2025 2:48 PM [facility] Alpha 1 Globulin (g/dL) 0.4 0.1 - 0.5 g/dL LAB CHEMISTRY METHOD 07/08/2025 2:48 PM [facility] Alpha 2 Globulin (g/dL) 1.0 0.7 - 1.5 g/dL LAB CHEMISTRY METHOD 07/08/2025 2:48 PM [facility] Beta (g/dL) 1.0 0.7 - 1.5 g/dL LAB CHEMISTRY METHOD 07/08/2025 2:48 PM [facility] Gamma Globulin (g/dL) 2.4(H) 0.7 - 1.9 g/dL LAB CHEMISTRY METHOD 07/08/2025 2:48 PM EST [facility] SPEP Interpretation Monoclonal gammopathy Abnormal pattern with immeasurable M-spike of gamma globulin mobility. Serum Immunofixation performed on this specimen demonstrated IgG Lambda monoclonal protein. LAB CHEMISTRY METHOD 07/08/2025 2:48 PM EST [facility] Blood Venous blood specimen / Unknown Venipuncture / Unknown 07/06/2025 5:46 AM EDT 07/06/2025 6:34 AM EDT Gwendolyn Sanchez [place] LAB BLOOD ORDERABLES Final Result Performing Organization Address City/[facility]/ZIP Co de Phone Number [facility] [address] [place] [address], [place] [phone] * Protein, total (07/06/2025 5:46 AM EDT) Total Protein 7.4 6.0 - 8.0 g/dL LAB CHEMISTRY METHOD 07/06/2025 7:47 AM EDT [facility] Blood Venous blood specimen / Unknown Venipuncture / Unknown 07/06/2025 5:46 AM EDT 07/06/2025 6:34 AM EDT Gwendolyn BURKS LAB BLOOD ORDERABLES Final Result Performing Organization Address City/[facility]/ZIP Co de Phone Number [facility] [address] [place] [address], [place] [phone] * (ABNORMAL) Iron (07/06/2025 5:46 AM EDT) Iron 32(L) 40 - 150 mcg/dL LAB CHEMISTRY METHOD 07/06/2025 7:45 AM EDT [facility] Comment:Results verified by repeat testing Blood Venous blood specimen / Unknown Venipuncture / Unknown 07/06/2025 5:46 AM EDT 07/06/2025 6:34 AM EDT us Gwendolyn BURKS LAB BLOOD ORDERABLES Final Result [facility] [address] [place] [address], [place] [phone] * (ABNORMAL) Urinalysis with reflex microscopic and culture (07/05/2025 3:58 PM EDT) Only the most recent of2 resultswithin the time period is included. Specific [place] Urine 1.009 1.003 - 1.030 LAB URINALYSIS - AUTOMATED METHOD 07/05/2025 4:31 PM EDT [facility] pH, Urine 7.5 5.0 - 8.0 pH LAB URINALYSIS - AUTOMATED METHOD 07/05/2025 4:31 PM [facility] Leukocytes, Urine Trace(A) Negative LAB URINALYSIS - AUTOMATED METHOD 07/05/2025 4:31 PM [facility] Nitrite, Urine Negative Negative LAB URINALYSIS - AUTOMATED METHOD 07/05/2025 4:31 PM [facility] Protein, Urine Negative <=Trace mg/dL LAB URINALYSIS - AUTOMATED METHOD 07/05/2025 4:31 PM [facility] Glucose, Urine Negative Negative mg/dL LAB URINALYSIS - AUTOMATED METHOD 07/05/2025 4:31 PM [facility] Ketones, Urine Negative Negative mg/dL LAB URINALYSIS - AUTOMATED METHOD 07/05/2025 4:31 PM [facility] Urobilinogen, Urine 0.2 0.2 - 1.0 mg/dL LAB URINALYSIS - AUTOMATED METHOD 07/05/2025 4:31 PM [facility] Bilirubin, Urine Negative Negative LAB URINALYSIS - AUTOMATED METHOD 07/05/2025 4:31 PM [facility] Blood, Urine Negative Negative LAB URINALYSIS - AUTOMATED METHOD 07/05/2025 4:31 PM EDT [facility] RBC, Urine 3.3 0 - 4 /HPF LAB URINALYSIS - AUTOMATED METHOD 07/05/2025 4:31 PM EDT [facility] WBC, Urine 1.8 0 - 4 /HPF LAB URINALYSIS - AUTOMATED METHOD 07/05/2025 4:31 PM EDT [facility] Squamous Epithelial, Urine 9 0 - 60 /LPF LAB URINALYSIS - AUTOMATED METHOD 07/05/2025 4:31 PM EDT [facility] Bacteria, Urine Negative Negative /HPF LAB URINALYSIS - AUTOMATED METHOD 07/05/2025 4:31 PM EDT [facility] Hyaline Casts, Urine 0.0 0 - 3 /LPF LAB URINALYSIS - AUTOMATED METHOD 07/05/2025 4:31 PM EDT [facility] Urine Urine specimen obtained by clean catch procedure / Unknown Non-blood Collection / Unknown 07/05/2025 3:58 PM EDT 07/05/2025 4:04 PM EDT Gwendolyn BURKS LAB URINE ORDERABLES Final Result [facility] [address] [place] [address], * Chlamydia trachomatis and Neisseria gonorrhoeae molecular study (07/05/2025 3:58 PM EDT) Neisseria gonorrhoeae PCR Negative Negative LAB MOLECULAR DIAGNOSTICS METHOD 07/06/2025 10:01 AM EDT [facility] Chlamydia trachomatis PCR Negative Negative LAB MOLECULAR DIAGNOSTICS METHOD 07/06/2025 10:01 AM EDT [facility] Urine Urine specimen obtained by clean catch procedure / Unknown Non-blood Collection / Unknown 07/05/2025 3:58 PM EDT 07/05/2025 4:04 PM EDT us Gwendolyn WILEY MICROBIOLOGY - GENERAL ORDERABLES Final Result Performing Organization Address [facility] Co de Phone Number [facility] [address] [place] [address], [place] [phone] * Culture urine (07/05/2025 3:58 PM EDT) Only the most recent of2 resultswithin the time period is included. Pathologist [facility] Culture, Urine No growth 07/06/2025 1:27 PM EDT [facility] Urine Urine specimen obtained by clean catch procedure / Unknown Non-blood Collection / Unknown 07/05/2025 3:58 PM EDT 07/05/2025 4:31 PM EDT us Gwendolyn WILEY MICROBIOLOGY - GENERAL ORDERABLES Final Result Performing Organization Address [facility] de Phone Number [facility] [address] [place] [address], [place] [phone] * (ABNORMAL) Lactate dehydrogenase (07/05/2025 6:36 AM EDT) Only the most recent of2 resultswithin the time period is included. [facility] LDH 258(H) 120 - 246 unit/L LAB CHEMISTRY METHOD 07/05/2025 8:59 AM EDT [facility] Comment:Results verified by repeat testing Blood Venous blood specimen / Unknown Venipuncture / Unknown 07/05/2025 6:36 AM EDT 07/05/2025 6:58 AM EDT us Gwendolyn BURKS LAB BLOOD ORDERABLES Final Result Performing Organization Address [facility] Co de Phone Number [facility] [address] [place] [address], [place] [phone] * (ABNORMAL) Haptoglobin (07/05/2025 6:36 AM EDT) Only the most recent of2 resultswithin the time period is included. Haptoglobin 369(H) 16 - 200 mg/dL LAB CHEMISTRY METHOD 07/05/2025 8:21 AM [facility] Blood Venous blood specimen / Unknown Venipuncture / Unknown 07/05/2025 6:36 AM EDT 07/05/2025 6:58 AM EDT Gwendolyn BURKS LAB BLOOD ORDERABLES Final Result [facility] [address] [place] [address], * (ABNORMAL) Hepatic function panel (07/05/2025 6:36 AM EDT) Only the most recent of2 resultswithin the time period is included. Pathologist [facility] Total Protein 8.3(H) 6.0 - 8.0 g/dL LAB CHEMISTRY METHOD 07/05/2025 8:47 AM [facility] Albumin 2.9(L) 3.2 - 5.0 g/dL LAB CHEMISTRY METHOD 07/05/2025 8:47 AM [facility] Total Bilirubin 0.2 0.0 - 1.4 mg/dL LAB CHEMISTRY METHOD 07/05/2025 8:47 AM [facility] Bilirubin, Direct <0.1 0.0 - 0.3 mg/dL LAB CHEMISTRY METHOD 07/05/2025 8:47 AM [facility] Bilirubin, Indirect LAB CHEMISTRY METHOD 07/05/2025 8:47 AM [facility] Comment:Unable to calculate Indirect Bilirubin. ALT (SGPT) 15 10 - 60 unit/L LAB CHEMISTRY METHOD 07/05/2025 8:47 AM [facility] AST (SGOT) 17 10 - 42 unit/L LAB CHEMISTRY METHOD 07/05/2025 8:47 AM EDT [facility] Alkaline Phosphatase 76 42 - 121 unit/L LAB CHEMISTRY METHOD 07/05/2025 8:47 AM EDT [facility] Blood Venous blood specimen / Unknown Venipuncture / Unknown 07/05/2025 6:36 AM EDT 07/05/2025 6:58 AM EDT Gwendolyn BURKS LAB BLOOD ORDERABLES Final Result Performing Organization Address [facility]/ZIP Co de Phone Number [facility] [address] [place] [address], [place] [phone] * (ABNORMAL) AST, ALT, Bilirubin ELR state reportables (07/04/2025 11:48 AM EDT) Only the most recent of2 resultswithin the time period is included. ALT (SGPT) 8(L) 10 - 60 unit/L LAB CHEMISTRY METHOD 07/04/2025 4:27 PM EDT [facility] AST (SGOT) 12 10 - 42 unit/L LAB CHEMISTRY METHOD 07/04/2025 4:27 PM EDT [facility] Bilirubin, Direct <0.1 0.0 - 0.3 mg/dL LAB CHEMISTRY METHOD 07/04/2025 4:27 PM EDT [facility] Total Bilirubin 0.2 0.0 - 1.4 mg/dL LAB CHEMISTRY METHOD 07/04/2025 4:27 PM EDT [facility] Blood Venous blood specimen / Unknown Venipuncture / Unknown 07/04/2025 11:48 AM EDT 07/04/2025 12:02 PM EDT Julianna Orozco MD LAB BLOOD ORDERABLES Final Resul t Performing Organization Address [facility]/ZIP Co de Phone Number [facility] [address] [place] [address], [place] [phone] * (ABNORMAL) Hepatitis C virus quantitative molecular study (07/04/2025 11:48 AM EDT) [facility] HCV Qual Interp Detected (A) Not Detected LAB MOLECULAR DIAGNOSTICS METHOD 07/04/2025 4:24 PM EDT [facility] HCV RNA Quantitative 844,418( H) <12 I Unit/mL LAB MOLECULAR DIAGNOSTICS METHOD 07/04/2025 4:24 PM EDT [facility] HCV RNA Quantitative Log 5.93(H) <1.08 Log IU/mL LAB MOLECULAR DIAGNOSTICS METHOD 07/04/2025 4:24 PM EDT [facility] Blood Venous blood specimen / Unknown Venipuncture / Unknown 07/04/2025 11:48 AM EDT 07/04/2025 12:02 PM EDT us Julianna Orozco MD LAB BLOOD ORDERABLES Final Resul t [facility] [address] [place] [address], [place] [phone] * (ABNORMAL) Blood culture pathogens molecular study (2025 1:35 PM EDT) Only the most recent of2 resultswithin the time period is included. [facility] Staphylococcus aureus Detected (A) Not Detected LAB MICROBIOLOGY METHOD 07/04/2025 4:04 PM EDT [facility] mecA/C and MREJ (MRSA) Detected (A) Not Detected LAB MICROBIOLOGY METHOD 07/04/2025 4:04 PM EDT [facility] Comment:mecA/C and MREJ Gene Detected: Indicates Methicillin Resistant Staphylococcus. Blood Venous blood specimen / Unknown Venipuncture / Unknown 2025 1:35 PM EDT 2025 1:39 PM EDT us Julianna Orozco MD LAB MICROBIOLOGY - GENERAL ORDER RICARDO Final Result [facility] [address] [place] [address], [place] [phone] * (ABNORMAL) Hepatitis C antibody (2025 6:10 AM EDT) [facility] Hepatitis C Antibody Positive (A) Negative LAB CHEMISTRY METHOD 2025 10:57 PM EDT [facility] Comment:If confirmation of t his positive HCV Ab screening test is needed, please redraw and order HCV Viral Load. Note--> This test may not be added on due to different specimen requirements. Blood Venous blood specimen / Unknown Venipuncture / Unknown 2025 6:10 AM EDT 2025 7:00 AM EDT us Julianna Orozco MD LAB BLOOD ORDERABLES Final Resul t Performing Organization Address City/[facility]/ZIP Co de Phone Number [facility] [address] [place] [address], [place] [phone] * HIV 1,2 antibody, p24 antigen with reflex to differentiation (2025 6:10 AM EDT) [facility] HIV Combo AB/AG Negative Negative LAB CHEMISTRY METHOD 2025 10:57 PM EDT [facility] Blood Venous blood specimen / Unknown Venipuncture / Unknown 2025 6:10 AM EDT 2025 7:00 AM EDT Narrative [facility] - 2025 10:57 PM EDT This [...] ORDERABLES Final Resul t Performing Organization Address City/[facility]/ZIP Co de Phone Number [facility] [address] [place] [address], [place] [phone] * Hepatitis B surface antigen with reflex to confirmation (2025 6:10 AM EDT) [facility] Hepatitis B Surface Ag Negative Negative LAB CHEMISTRY METHOD 2025 10:28 PM EDT [facility] Blood Venous blood specimen / Unknown Venipuncture / Unknown 2025 6:10 AM EDT 2025 7:00 AM EDT Narrative [facility] - 2025 10:28 PM EDT Over the counter supplements containing high doses of biotin may interfere with this assay. If interference is suspected, patients shoud be retested after refraining from biotin supplements for 72 hours. Julianna Orozco MD LAB BLOOD ORDERABLES Final Resul t [facility] [address] [place] [address], [place] [phone] * Transfuse RBC, Leukoreduced (2025 5:26 AM EDT) Only the most recent of2 resultswithin the time period is included. Tu BURKS BLOOD TRANSFUSION ORDERABLES Fi nal Result * Prepare RBC: 1 Units, Leukoreduced (07/02/2025 8:35 PM EDT) Only the most recent of3 resultswithin the time period is included. [facility] Product Code [id number] 2025 2:10 AM EDT [facility] Unit Number [id number] 07/03/20 2:10 AM EDT [facility] Crossmatch Compatible 07/02/2025 9:23 PM EDT [facility] Dispense Status Transfused 2025 2:10 AM EDT [facility] Unit ABO Rh APOS 2025 2:10 AM EDT [facility] Unit Expiration Date Time [id number] 2025 2:10 AM EDT [facility] Unit Blood Type 6200 2025 2:10 AM EDT [facility] Blood Venous blood specimen / Unknown 07/02/2025 8:35 PM EDT 06/30/2025 10:26 AM EDT [email or web address] BLOOD BANK PRODUCT ORDERABLES F inal Result Performing Organization Address City/[facility]/ZIP Co de Phone Number [facility] [address] [place] [address], [place] [phone] * (ABNORMAL) C-reactive protein (07/02/2025 8:17 PM EDT) Only the most recent of2 resultswithin the time period is included. C-Reactive Protein 2.10(H) <=0.50 mg/dL LAB CHEMISTRY METHOD 07/02/2025 9:02 PM EDT [facility] Blood Venous blood specimen / Unknown Venipuncture / Unknown 07/02/2025 8:17 PM EDT 07/02/2025 8:27 PM EDT [employer] LAB BLOOD ORDERABLES Final Resu lt [facility] [address] [place] [address], [place] [phone] * MR Lumbar Spine wo and w [...] lumbar spine with and without gadolinium Comparison: DX/DC/SR - XR L SPINE 2 3 VW [...] lumbar spine with and without gadolinium Comparison: DX/DC/SR - XR L SPINE 2 3 VW - 06/30/25 08:53 EDT Findings: 5 lumbar type vertebral bodies are present by plain film. Alignment is normal. No acute fracture. There is moderate ill-defined STIR signal elevationand enhancement within the left inferior L4 and left superior [id number] facets. There is a peripherally enhancing moderate [...] suggestive of septic arthritis involving the left L4-W1jzvgv joint with surrounding cellulitis. 2. Multilevel degenerative [...] (07/01/2025 11:06 AM EDT) Left Atrium Minor [place] 4.5 cm CV PACS Left Atrium Major [place] 4.6 cm CV PACS LA Area Sys [...] Volume 80 mL CV PACS MV Deceleration Freeborn 9.4 m/s2 CV PACS E Wave Deceleration [...] and free t3 (07/01/2025 7:04 AM EDT) [facility] TSH 0.57 0.40 - 4.00 mcIU/mL LAB CHEMISTRY METHOD 07/01/2025 6:49 PM EDT [facility] Blood Venous blood specimen / Unknown Venipuncture / Unknown 07/01/2025 7:04 AM EDT 07/01/2025 7:20 AM EDT us Gwendolyn BURKS LAB BLOOD ORDERABLES Final Result [facility] [address] [place] [address], [place] [phone] * (ABNORMAL) Complete blood count (07/01/2025 7:04 AM EDT) [facility] WBC 8.8 4.8 - 10.8 K/mcL LAB HEMETOLOGY METHOD 07/01/2025 7:40 AM EDT [facility] RBC 3.70(L) 3.80 - 4.80 M/[facility] LAB HEMETOLOGY METHOD 07/01/2025 7:40 AM EDT [facility] Hemoglobin 7.5(L) 11.5 - 16.0 g/dL LAB HEMETOLOGY METHOD 07/01/2025 7:40 AM EDT [facility] Hematocrit 25.8(L) 35.0 - 47.0 % LAB HEMETOLOGY METHOD 07/01/2025 7:40 AM EDT [facility] MCV 69.0(L) 79.0 - 98.0 FL LAB HEMETOLOGY METHOD 07/01/2025 7:40 AM EDT [facility] MCH 20.1(L) 27.0 - 32.0 pcg LAB HEMETOLOGY METHOD 07/01/2025 7:40 AM EDT [facility] MCHC 29.1(L) 32.0 - 37.0 g/dL LAB HEMETOLOGY METHOD 07/01/2025 7:40 AM EDT [facility] RDW 18.1(H) 11.0 - 15.0 % LAB HEMETOLOGY METHOD 07/01/2025 7:40 AM [facility] Platelets 623(H) 130 - 400 K/mcL LAB HEMETOLOGY METHOD 07/01/2025 7:40 AM EDT [facility] MPV 9.5 7.0 - 11.0 FL LAB HEMETOLOGY METHOD 07/01/2025 7:40 AM EDT [facility] NRBC 0.0 <1.0 % LAB HEMETOLOGY METHOD 07/01/2025 7:40 AM [facility] NRBC Absolute 0.00 <0.10 K/mcL LAB HEMETOLOGY METHOD 07/01/2025 7:40 AM T [facility] Blood Venous blood specimen / Unknown Venipuncture / Unknown 07/01/2025 7:04 AM EDT 07/01/2025 7:21 AM EDT us Enriqueta Dunaway MD LAB BLOOD ORDERABLES Final Res ult [facility] [address] [place] [address], * (ABNORMAL) Fentanyl and metabolite, quantitative, urine [...] developed and the performance characteristics determined by [facility]. This confirmation testing has not been cleared or approved by the FDA. The laboratory is regulated under CLIA as qualified to perform high-complexity testing. This test is used for patient testing purposes. It should not be regarded as investigational or for research. Test performed at [facility], [address] , [place] [address] Magy Concepcion MD, PhD - [employer] Urine Urine specimen from urethra / Unknown Non-blood Collection / Unknown 07/01/2025 2:41 AM EDT 07/01/2025 2:57 AM EDT us Yumiko Shaikh NP LAB URINE ORDERABLES Donny sandy Result - Final [facility] [address] [place] [address] * (ABNORMAL) Methadone confirmation, urine (07/01/2025 2:41 AM EDT) Methadone Confirm Urine 420(H) Negative ng/mL 2025 11:45 PM EDT [facility] EDDP Confirm, Urine 1480(H) Negative ng/mL 2025 11:45 PM EDT [facility] Creatinine 117 20 - 250 mg/dL 2025 11:45 PM EDT [facility] Adulterants Negative 2025 11:45 PM EDT [facility] Comment: Confirmation (LC/MS/MS) Decision [...] developed and the performance characteristics determined by [facility]. This confirmation testing has not been cleared or approved by the FDA. The laboratory is regulated under CLIA as qualified to perform high-complexity testing. This test is used for patient testing purposes. It should not be regarded as investigational or for research. Test performed at [facility], [address] , [place] [address] Magy Concepcion MD, PhD - [employer] Urine Urine specimen from urethra / Unknown Non-blood Collection / Unknown 07/01/2025 2:41 AM EDT 07/01/2025 2:57 AM EDT Yumiko Shaikh [employer] LAB URINE ORDERABLES Fin al Result [facility] [address] [place] [address] * SST tube (06/30/2025 6:18 PM EDT) Extra Tube Hold for add-ons. 06/30/2025 8:01 PM EDT [facility] Comment:Auto resulted. Blood Venous blood specimen / Unknown 06/30/2025 6:18 PM EDT 06/30/2025 6:47 PM EDT us Enriqueta Dunaway MD LAB BLOOD ORDERABLES Final Res ult [facility] [address] [place] [address], [place] [phone] * (ABNORMAL) Soluble transferrin receptor (06/30/2025 6:18 PM EDT) Soluble Transferrin Receptor 56.3(H) 12.2 - 27.3 nmol/L 2025 5:05 PM EDT [facility] Blood Venous blood specimen / Unknown 06/30/2025 6:18 PM EDT 06/30/2025 6:47 PM EDT Narrative [facility] - 2025 5:05 PM EDT Performed at: [facility] [id number] [employer] Hand: Franck Carey MD, Phone: [phone] us Yumiko Shaikh NP LAB BLOOD ORDERABLES Fin al Result [facility] * (ABNORMAL) Hemoglobin and hematocrit (06/30/2025 6:03 PM EDT) Pathologist [facility] Hemoglobin 7.3(L) 11.5 - 16.0 g/dL LAB HEMETOLOGY METHOD 06/30/2025 7:22 PM EDT [facility] Hematocrit 25.5(L) 35.0 - 47.0 % LAB HEMETOLOGY METHOD 06/30/2025 7:22 PM EDT [facility] Blood Venous blood specimen / Unknown 06/30/2025 6:03 PM EDT 06/30/2025 7:18 PM EDT Yumiko Shaikh [employer] LAB BLOOD ORDERABLES Fin al Result [facility] [address] [place] [address], [place] [phone] * Type and screen (06/30/2025 10:18 AM EDT) ABO Group A 06/30/2025 11:48 AM EDT [facility] Rh Type Positive 06/30/2025 11:48 AM EDT [facility] Antibody Screen Negative 06/30/2025 11:48 AM EDT [facility] Blood Venous blood specimen / Unknown Venipuncture / Unknown 06/30/2025 10:18 AM EDT 06/30/2025 10:26 AM EDT Ivonne BURKS LAB BLOOD BANK TEST ORDERABLE S Final Result [facility] [address] [place] [address], * XR Lumbar Spine 2-3 Views (06/30/2025 [...] Signed Date: 06/30/2025 10:10 ET Workstation ID: [id number] Transcribed By: Self Edit Transcribed Date: 06/30/2025 [...] Signed Date: 06/30/2025 10:10 ET Workstation ID: [id number] Transcribed By: Self Edit Transcribed Date: 06/30/2025 10:09 ET Ivonne BURKS IMG XR PROCEDURES Final Resul t * (ABNORMAL) Iron and TIBC (06/30/2025 7:46 AM EDT) Pathologist [facility] Iron 12(L) 40 - 150 mcg/dL LAB CHEMISTRY METHOD 06/30/2025 12:30 PM EDT [facility] TIBC 347 250 - 450 mcg/dL LAB CHEMISTRY METHOD 06/30/2025 12:30 PM EDT [facility] Iron Saturation 3(L) 15 - 50 % LAB CHEMISTRY METHOD 06/30/2025 12:30 PM EDT [facility] Blood Venous blood specimen / Unknown Venipuncture / Unknown 06/30/2025 7:46 AM EDT 06/30/2025 8:53 AM EDT Yumiko Shaikh [employer] LAB BLOOD ORDERABLES Fin al Result [facility] [address] [place] [address], [place] [phone] * (ABNORMAL) Sedimentation rate, automated (06/30/2025 7:46 AM EDT) Sed Rate 89(H) 0 - 20 mm/hr LAB HEMETOLOGY METHOD 06/30/2025 10:50 AM EDT [facility] Blood Venous blood specimen / Unknown Venipuncture / Unknown 06/30/2025 7:46 AM EDT 06/30/2025 8:53 AM EDT Ivonne Henriquez PA LAB BLOOD ORDERABLES Final Re sult Performing Organization Address [facility]/ZIP Co de Phone Number [facility] [address] [place] [address], * HCG, quantitative (06/30/2025 7:46 AM EDT) [facility] hCG Quant <1 mIU/mL LAB CHEMISTRY METHOD 06/30/2025 2:48 PM EDT [facility] Blood Venous blood specimen / Unknown Venipuncture / Unknown 06/30/2025 7:46 AM EDT 06/30/2025 8:53 AM EDT Narrative [facility] - 06/30/2025 2:48 PM EDT Quantitative HCG Reference Ranges Time after Conception MIU/ML 0.2-1 Week 5-50 1-2 Weeks 50-500 2-3 Weeks 100-5,000 3-4 Weeks 500-10,000 4-5 Weeks 1,000-50,000 5-6 Weeks 10,000-100,000 6-8 Weeks 15,000-200,000 2-3 Months 10,000-100,000 2nd Trimester 1,000-94,000 3rd Trimester 2,500-90,000 Non- Females 1-3 Yumiko Shaikh NP LAB BLOOD ORDERABLES Fin al Result Performing Organization Address City/[facility]/ZIP Co de Phone Number [facility] [address] [place] [address], [place] [phone] * (ABNORMAL) Folate (06/30/2025 7:46 AM EDT) [facility] Folate >20.0(H) 2.8 - 17.0 ng/ml LAB CHEMISTRY METHOD 06/30/2025 12:54 PM EDT [facility] Blood Venous blood specimen / Unknown Venipuncture / Unknown 06/30/2025 7:46 AM EDT 06/30/2025 8:53 AM EDT us Yumiko Shaikh NP LAB BLOOD ORDERABLES Fin al Result Performing Organization Address City/[facility]/ZIP Co de Phone Number [facility] [address] [place] [address], [place] [phone] * Ferritin (06/30/2025 7:46 AM EDT) [facility] Ferritin 11 8 - 252 ng/mL LAB CHEMISTRY METHOD 06/30/2025 12:54 PM EDT [facility] Blood Venous blood specimen / Unknown Venipuncture / Unknown 06/30/2025 7:46 AM EDT 06/30/2025 8:53 AM EDT Yumiko Shaikh NP LAB BLOOD ORDERABLES Fin al Result [facility] [address] [place] [address], [place] [phone] * Vitamin B12 (06/30/2025 7:46 AM EDT) [facility] Vitamin B-12 260 250 - 900 pcg/mL LAB CHEMISTRY METHOD 06/30/2025 12:54 PM EDT [facility] Blood Venous blood specimen / Unknown Venipuncture / Unknown 06/30/2025 7:46 AM EDT 06/30/2025 8:53 AM EDT us Yumiko L Arina Shaikh [employer]GER LAB BLOOD ORDERABLES Fin al Result [facility] [address] [place] [address], from Last 3 Months Insurance [facility] MEDIC[facility] Member Subscriber Plan / Payer (Ef fective 2024-Present) Name:KATHY BALLARD Relation to Subscriber:Self Name:Kathy Ballard Payer ID:[id number] Group ID:[id number] Type:Not on file Address: [place] [address] [address] [id number] Advance Directives * Full Code - Confirmed [...] currently active code status orders. Care Teams [employer] Relationship Specialty Start Date End Date Physician, Pcp Unknown PCP - General Internal Medicine 06/30/25
--- OUTSIDE RECORDS SUMMARY | 2025-08-29 17:16 | XMS_ITS | Clinical Summary ---
Author Organization [facility] Address [address] [place] [address] Care Team Providers Care Museum Guide Name Role Phone Oniel Sanches Primary Care Provider [phone] Allergies Active Allergy Reactions Criticality Noted Date Comments Diphenhydramine Hcl Unknown 08/02/2025 Risperidone Unknown 08/02/2025 Trazodone Unknown 08/02/2025 Medications * This document contains information received from the source organization and may not represent a complete record from that organization. No known medications Encounters Date Type Department Care Team Description 08/02/2025 8:23 PM EST - 08/02/2025 9:39 PM EST Emergency [facility] Emergency Department [address] [place] [address] Gopal Foster MD Vaginal bleeding (Primary Dx) Discharge Disposition: Home or Self Care () 08/02/2025 3:01 PM EST - 08/02/2025 5:07 PM EST Emergency [facility] Emergency Department [address] [place] [id number] Arielle Sánchez MD Vaginal bleeding (Primary Dx) [...] complete this topic Procedures * Due to [place] [employer] law, this organization might not be sharing negative HIV tests. Procedure Name Priority Date/Time Associated Diagnosis Comments SMEAR REVIEW STAT 08/02/2025 2:42 PM EST HCG QUALITATIVE W/REFLEX TO QUANTITATIVE STAT Add-on 08/02/2025 2:42 PM EST BASIC METABOLIC PANEL STAT 08/02/2025 2:42 PM EST CBC AUTO DIFFERENTIAL STAT 08/02/2025 2:42 PM EST from Last 3 Months Results * Due to [place] [employer] law, this organization might not be sharing negative HIV tests. * (ABNORMAL) Smear Review (08/02/2025 2:42 PM EST) Platelet Estimate Adequate Adequate 08/02/2025 3:40 PM EST [facility] RBC Morphology Present(A) Normal, No clinically significant RBC morphology present (ICSH guidelines, 2015). 08/02/2025 3:40 PM EST [facility] Anisocytosis 3+(A) Not Present 08/02/2025 3:40 PM EST [email or web address] Hypochromia 2+(A) Not Present 08/02/2025 3:40 PM EST [facility] Macrocytes 2+(A) Not Present 08/02/2025 3:40 PM EST [email or web address] Microcytes 2+(A) Not Present 08/02/2025 3:40 PM EST [facility] Blood Structure of peripheral vein / Unknown Venipuncture / Unknown 08/02/2025 2:42 PM EST 08/02/2025 2:48 PM EST us Protocol Unv Adult Treatment MD LAB BLOOD ORDERA BLES Final Result [facility] [address] [place] [address], * hCG Qualitative w/Reflex to Quantitative (08/02/2025 2:42 PM EST) Pathologist [facility] HCG Qualitative, Serum Negative Negative 08/02/2025 5:05 PM EST [facility] Comment: hCG greater than [...] MD LAB BLOOD ORDERA BLES Final Result [facility] [address] [place] [address], * (ABNORMAL) CBC Auto Differential (08/02/2025 2:42 [...] MD LAB BLOOD ORDERA BLES Final Result [email or web address] [address] [place] [address], * (ABNORMAL) Basic Metabolic Panel (08/02/2025 2:42 PM EST) NA 140 135 - 145 mmol/L 08/02/2025 3:17 PM EST [facility] K 3.9 3.5 - 5.3 mmol/L 08/02/2025 3:17 PM EST [facility] Cl 103 97 - 110 mmol/L 08/02/2025 3:17 PM EST [facility] CO2 24 22 - 32 mmol/L 08/02/2025 3:17 PM EST [facility] BUN 20 7 - 23 mg/dL 08/02/2025 3:17 PM EST [facility] Creatinine 0.79 0.50 - 1.20 mg/dL 08/02/2025 3:17 PM EST [facility] Glucose 124(H) 65 - 99 mg/dL 08/02/2025 3:17 PM EST [facility] Calcium 9.1 8.6 - 10.5 mg/dL 08/02/2025 3:17 PM EST [facility] Anion Gap 13 5 - 15 08/02/2025 3:17 PM EST [facility] eGFR >90 >=60 mL/min/1. 73m2 08/02/2025 3:17 PM EST [facility] Comment:The estimated [...] LAB BLOOD ORDERA BLES Final Result [facility] [address] [place] [address], from Last 3 Months Insurance MEDICARE Advance Directives Documents on File Type Date Recorded Patient Editor City Expl anation MOLST/POLST 08/03/2025 11:54 AM 07-22-20 25 Care Teams Museum Guide Relationship Specialty Start Date End Date Oniel Sanches [address] [place] [address] [place] [address] PCP - General Internal Medicine 08/02/23
[2025-08-29 18:26] LABS: Appearance Urine Clear; Glucose Urine UA Negative (Negative); PH 5.5 (5.0-9.0); Specific Gravity - Urine 1.025 (1.005-1.025); UMIC TRIGGER UACC YES
[2025-08-29 18:28] LABS: Cannabinoid Screen Urine Not Detected (Not Detect)
[2025-08-29 18:32] LABS: MANUAL DIFF FLAG NO
[2025-08-29 18:35] LABS: Hematocrit 35.4 % (37.0-47.0); Hemoglobin 11.1 g/dl (12.0-16.0); Imm Gran Abs Auto 0.01 X10*3/uL (0.00-0.03); Imm Gran Pct Auto 0.2 % (0.0-0.4); Lymphocytes Absolute Auto 1.0 X10*3/uL (1.2-4.9); Mean Corpuscular HGB Conc 31.4 g/dl (31.0-35.0); Mean Corpuscular Hemoglobin 26.2 pg (27.0-33.0); Mean Corpuscular Volume 83.7 fL (80.0-98.0); NRBC Abs Auto 0.000 X10*3/uL (0.0-0.012); NRBC Pct Auto 0.0 /100WBC (0.0-0.2); Platelet Count 251 X10*3/uL (160-400); Red Blood Count 4.23 X10*6/uL (4.20-5.50); White Blood Count 4.6 X10*3/uL (4.8-10.8)
[2025-08-29 18:57] LABS: Alanine Aminotransferase 22 U/L (0-31); Albumin Level 4.6 g/dL (3.5-5.0); Alkaline Phosphatase 76 U/L (39-117); Anion Gap 14 (12-20); Aspartate Amino Transferase 34 U/L (5-31); Blood Urea Nitrogen 36 mg/dL (9-16); Calcium 9.7 mg/dL (8.4-10.2); Carbon Dioxide 22 mmol/L (22-29); Chloride 107 mmol/L (96-108); Creatinine Clr Calc Pharmacy 63.5; Estimated Glomerular Filt Rate > 60; Lipase 10 U/L (8-78); Magnesium 2.2 mg/dL (1.6-2.6); Potassium 4.1 mmol/L (3.3-5.1); Sodium 139 mmol/L (135-145); Total Protein 8.6 g/dL (6.5-8.0)
[2025-08-29 19:02] LABS: Acetaminophen LAB < 3 mcg/mL (<30); Salicylate < 5.0 mg/dL (15-30)
[2025-08-29] MEDS: oxyCODONE HCl Immed Release 5 MG TABLET PO (21:25)
[2025-08-29] MEDS: Sulfamethox/Trimeth 800/160 TABLET 1 TAB PO (21:26)
--- NOTE | 2025-08-29 22:00 | PC.NURSE ---
pt medicated with bacitracin to arm wounds, redressed
[2025-08-30 06:45] VITALS: BP 125/77; PULSE 96; RESP 18; TEMP 36.6; O2SAT 100
--- NOTE | 2025-08-30 07:39 | PHA.MEDREC ---
Pharmacy Consult ? Medication Reconciliation Pharmacy has reviewed the medication reconciliation. Matches pharmacy claims.
[2025-08-30] MEDS: oxyCODONE HCl Immed Release 5 MG TABLET PO (08:50)
[2025-08-30] MEDS: Sulfamethox/Trimeth 800/160 TABLET 1 TAB PO (08:50)
[2025-08-30] MEDS: Naloxone HCl Nasal TAKE HOME 4 MG SPRAY 8 MG NOSTRILALT (10:01)
[2025-08-30 10:03] VITALS: BP 125/77; PULSE 96; RESP 18; TEMP 36.6; O2SAT 100
--- NOTE | 2025-08-30 10:03 | PC.NURSE ---
Patient given emergency narcan and harm reduction kit
== END 2025-08-30 10:04 | disposition home or self-care (01) ==
PROVIDERS: Physician Assistant Medical; Emergency Provider Emergency Medicine; PCP Internal Medicine
DX: F33.2 Major depressive disorder, recurrent severe without psychotic features (principal); R45.851 Suicidal ideations; L08.9 Local infection of the skin and subcutaneous tissue, unspecified; F41.9 Anxiety disorder, unspecified; F11.90 Opioid use, unspecified, uncomplicated; Z51.81 Encounter for therapeutic drug level monitoring; F14.90 Cocaine use, unspecified, uncomplicated; F19.90 Other psychoactive substance use, unspecified, uncomplicated; Z79.899 Other long term (current) drug therapy
CPT/HCPCS: 36415; 80053; 80143; 80179; 80307; 81001; 83690; 83735; 85025; 99285; S9485